=== PATIENT | female | born 1950 | race Caucasian/White ===

== ENCOUNTER 2022-12-17 10:03 | Outpatient (OUT) | payer MEDICARE, SELFPAY ==
[2022-12-17 10:53] LABS: Alanine Aminotransferase 26 U/L (14-59); Albumin Globulin Ratio 0.9; Albumin Level 3.8 g/dL (3.4-5.0); Alkaline Phosphatase 77 U/L (46-116); Anion Gap 11.4; Aspartate Amino Transferase 19 U/L (15-37); BUN Creatinine Ratio 23.2; Bilirubin Total 0.6 mg/dL (0.2-1.0); Calcium 9.3 mg/dL (8.5-10.1); Carbon Dioxide 28.7 mmol/L (21.0-32.0); Chloride 101 mmol/L (98-107); Chol HDL Ratio 3.2; Cholesterol 185 mg/dL (<=200); Estimated GFR (African America >60 (>=60); Estimated GFR (Non-African Ame >60 (>=60); Glucose 106 mg/dL (74-106); HDL Cholesterol 58 mg/dL (40-60); Potassium 4.1 mmol/L (3.5-5.1); Sodium 137 mmol/L (136-145); Total Protein 7.8 g/dL (6.4-8.2); Triglycerides 164 mg/dL (<=150); VLDL CHOLESTEROL 32.8 mg/dL
== END 2022-12-17 10:04 ==
PROVIDERS: PCP Family Medicine; Visit Provider Family Medicine
DX: I10 Essential (primary) hypertension (principal); Z13.1 Encounter for screening for diabetes mellitus; E78.2 Mixed hyperlipidemia
CPT/HCPCS: 36415; 80053; 80061

== ENCOUNTER 2023-04-25 12:59 | Outpatient (RCR) | payer MEDICARE, SELFPAY | END 2023-05-27 15:00 | disposition home or self-care (01) | LOC: PT 12:59 | PROVIDERS: PCP Family Medicine | DX: M54.9 Dorsalgia, unspecified (principal); M54.2 Cervicalgia; G89.29 Other chronic pain; R29.3 Abnormal posture | CPT/HCPCS: 97110; 97112; 97140; 97162 ==

== ENCOUNTER 2023-05-24 18:47 | Emergency (ER) | payer MEDICARE, SELFPAY ==
[2023-05-24] VITALS (12 sets, daily range): BP systolic 141–170; BP diastolic 80–90; PULSE 64–77; RESP 15–23; TEMP 36.7; O2SAT 97–100; BMI 25.1
--- NOTE | 2023-05-24 19:11 | PC.NURSE ---
Here for hypertension
--- NOTE | 2023-05-24 19:19 | ED_ITS ---
HPI - General Adult General Chief complaint: Recheck/Abnormal Lab/Rx Stated complaint: Blood Pressure High Time Seen by Provider: 05/24/23 19:14 Source: patient Mode of arrival: walk-in Limitations: no limitations History of Present Illness HPI narrative: past history of left renal artery stenosis and HTN. States her BP has spiked in the past and she states it spiked again tonight. States she can tell when it spi kes because her face becomes flushed. No headache, dizziness, chest pain or dyspnea. No abdominal pain. States BP spike to 184 systolic at home. On arrival to the ER it is 170/90 Onset (ago): hour(s) Related Data Allergies Allergy/AdvReac Type Severity Reaction Status Date / Time No Known Drug Allergies Allergy Verified 05/24/23 19:06 Review of Systems ROS Status of ROS 10 or more systems reviewed and unremarkable except as noted in history and below Exam Constitutional Vital Signs, click to edit/add: Last Vital Signs Temp 98.1 F 05/24/23 19:06 Pulse 64 05/24/23 20:15 Resp 23 05/24/23 20:15 BP 141/82 05/24/23 20:15 Pulse Ox 97 05/24/23 19:20 O2 Del Method Room Air 05/24/23 19:11 Common normals: no apparent distress, average body habitus, oriented x3, no limitations, healthy appearing and alert [facility] Common normals: normocephalic and head/scalp atraumatic Eye Common normals: PERRL, EOMs intact bilaterally and conjunctivae normal Respiratory Common normals: normal respiratory effort, no retractions, no use of accessory muscles and clear to auscultation bilaterally Cardio Common normals: regular rate, regular rhythm, S1 normal heart sound, S2 normal heart sound and no murmurs GI Common normals: Normal to inspection, nondistended, normoactive bowel sounds present, soft to palpation and non-tender Extremity Common normals: normal to inspection and full ROM Neuro Common normals: oriented x3, CN's II-XII intact bilaterally, moves all extremities and no focal motor deficits Psych Appearance: grossly normal Course Vital Signs Vital signs: Vital Signs Temperature 98.1 F 05/24/23 19:06 Pulse Rate 77 05/24/23 19:06 Respiratory Rate 18 05/24/23 19:06 Blood Pressure 170/90 H 05/24/23 19:06 Pulse Oximetry 100 05/24/23 19:06 Oxygen Delivery Method Room Air 05/24/23 19:06 Temperature 98.1 F 05/24/23 19:06 Pulse Rate 64 05/24/23 20:15 Respiratory Rate 23 05/24/23 20:15 Blood Pressure 141/82 05/24/23 20:15 Pulse Oximetry 97 05/24/23 19:20 Oxygen Delivery Method Room Air 05/24/23 19:11 Medical Decision Making MDM Narrative Medical decision making narrative: patient presents with complaint of a spike of her BP at home to a high of 184 systolic. Arrives to the Er and BP has decreased to 170s workup in the department unremarkable and her BP returned to normal without intervention. She is discharged home asymptomatic to follow up with her doctor Lab Data Labs: Lab Results 05/24/23 Range/Units 19:30 WBC 6.2 (4.0-11.0) 10^3/uL RBC 3.75 L (4.20-5.40) 10^6/uL Hgb 11.3 L (12.0-16.0) g/dL Hct 34.0 L (36.0-48.0) % MCV 90.7 (81.0-99.0) fL MCH 30.1 (26.7-34.0) pg MCHC 33.2 (29.9-35.2) g/dL RDW 12.9 (11.0-15.0) % Plt Count 281 (150-450) 10^3/uL MPV 10.5 (9.5-13.5) fL Neut % (Auto) 61.7 (43.0-75.0) % Lymph % (Auto) 23.1 (20.5-60.0) % [place] % (Auto) 8.0 (1.7-12.0) % Eos % (Auto) 6.4 (0.9-7.0) % Baso % (Auto) 0.6 (0.2-2.0) % Neut # (Auto) 3.8 (1.4-6.5) 10^3/uL Lymph # (Auto) 1.4 (1.2-3.8) 10^3/uL [place] # (Auto) 0.5 (0.3-0.8) 10^3/uL Eos # (Auto) 0.4 (0.0-0.7) 10^3/uL Baso # (Auto) 0.0 (0.0-0.1) 10^3/uL Abs Immat Gran (auto) 0.01 (0.00-0.03) 10^3/uL Imm/Tot Granulo (auto) 0.2 (0.0-0.5) % Sodium 133 L (136-145) mmol/L Potassium 3.9 (3.5-5.1) mmol/L Chloride 97 L (98-107) mmol/L Carbon Dioxide 28.1 (21.0-32.0) mmol/L Anion Gap 11.8 BUN 21.0 H (7.0-18.0) mg/dL Creatinine 0.73 (0.55-1.02) mg/dL Est GFR ( Amer) >60 (>=60) Est GFR (Non-Af Amer) >60 (>=60) BUN/Creatinine Ratio 28.8 Glucose 98 (74-106) mg/dL Calcium 9.4 (8.5-10.1) mg/dL Troponin I High Sens 4.3 (4.0-51.3) pg/mL NT-Pro-B Natriuret Pep 75.0 (<=900.0) pg/mL Discharge Plan Discharge Chief Complaint: Recheck/Abnormal Lab/Rx Clinical Impression: Hypertension Instructions: Hypertension (ED) Stand Alone Forms: Portal Instructions Referrals: SHAINA CASTAÑEDA [Primary Care Provider] - 1 week
--- NOTE | 2023-05-24 19:21 | XR_ITS ---
[place] [id number] Patient Name: SUJATHA HA MRN: [id number] date: 1950 Sex: F Assigned Patient Location: ER Current Patient Location: ER Accession/Order Number: [id number] Exam Date: 05/24/2023 19:28 Report Date: 05/24/2023 20:10 At the request of: RD COLLINS Procedure: XR chest 1V EXAMINATION: XR chest 1V HISTORY: Hypertension COMPARISON: Chest x-ray 03/16/2021 TECHNIQUE: Portable chest FINDINGS: The lung parenchyma is free of consolidation or infiltrate. No pneumothorax or pleural effusion. The cardiac, mediastinal and hilar contours are normal. The visualized osseous structures exhibit no gross abnormality. XR/XR chest 1V IMPRESSION: No acute cardiopulmonary abnormality. Electronically authenticated by: MIREILLE THRONTON Date: 05/24/2023 20:10
--- NOTE | 2023-05-24 19:23 | ECG_ITS ---
[facility] Test Date: 2023-05-24 Pat Name: SUJATHA HA Department: Room: - Gender: Female [employer]: : 1950 Requested By: SHAINA CASTAÑEDA Order Number: [id number] Reading MD: SOCORRO PEARCE Measurements Intervals [place] Rate: 72 P: 44 WV: 230 QRS: 33 QRSD: 86 T: 35 QT: 398 QTc: 423 Interpretive Statements 1100 Sinus rhythm 2231 First degree AV block 9150 abnormal ECG No previous ECG available for comparison Electronically Signed On 05-25-2023 19:35:06 EST by SOCORRO PEARCE
[2023-05-24 19:51] LABS: Basophils Percent Auto 0.6 % (0.2-2.0); Eosinophils Absolute Auto 0.4 10^3/uL (0.0-0.7); Eosinophils Percent Auto 6.4 % (0.9-7.0); Hemoglobin 11.3 g/dL (12.0-16.0); Immature Granulocytes Abs Auto 0.01 10^3/uL (0.00-0.03); Immature Granulocytes Pct Auto 0.2 % (0.0-0.5); Lymphocytes Absolute Auto 1.4 10^3/uL (1.2-3.8); Lymphocytes Percent Auto 23.1 % (20.5-60.0); Mean Corpuscular HGB Conc 33.2 g/dL (29.9-35.2); Mean Corpuscular Hemoglobin 30.1 pg (26.7-34.0); Mean Corpuscular Volume 90.7 fL (81.0-99.0); Mean Platelet Volume 10.5 fL (9.5-13.5); Monocytes Absolute Auto 0.5 10^3/uL (0.3-0.8); Neutrophils Absolute Auto 3.8 10^3/uL (1.4-6.5); Neutrophils Percent Auto 61.7 % (43.0-75.0); Platelet Count 281 10^3/uL (150-450); Red Blood Count 3.75 10^6/uL (4.20-5.40); Red Cell Distribution Width 12.9 % (11.0-15.0); White Blood Count 6.2 10^3/uL (4.0-11.0)
[2023-05-24 20:12] LABS: Anion Gap 11.8; BUN Creatinine Ratio 28.8; Calcium 9.4 mg/dL (8.5-10.1); Carbon Dioxide 28.1 mmol/L (21.0-32.0); Chloride 97 mmol/L (98-107); Estimated GFR (African America >60 (>=60); Estimated GFR (Non-African Ame >60 (>=60); Glucose 98 mg/dL (74-106); Potassium 3.9 mmol/L (3.5-5.1); Sodium 133 mmol/L (136-145); Troponin I High Sensitivity 4.3 pg/mL (4.0-51.3)
== END 2023-05-24 21:00 | disposition home or self-care (01) ==
PROVIDERS: Emergency Provider Internal Medicine; PCP Family Medicine
DX: I10 Essential (primary) hypertension (principal); I70.1 Atherosclerosis of renal artery
CPT/HCPCS: 36415; 71045; 80048; 83880; 84484; 85025; 93005; 99285

== ENCOUNTER 2023-11-29 01:26 | Emergency (ER) | payer MEDICARE, SELFPAY ==
[2023-11-29 01:33] VITALS: BP 141/76; PULSE 75; TEMP 36.7; O2SAT 96; BMI 25.4
--- OUTSIDE RECORDS SUMMARY | 2023-11-29 01:38 | XMS_ITS | CCD ---
Author Organization [facility] Care Team Providers Care Hide Buyer Name Role Phone Casper Juan W Unavailable Unavailable Rice, Juan W Unavailable Unavailable Rice Juan W Unavailable Unavailable HUDSON CASTAÑEDA Unavailable Unavailable Hudson Castañeda Primary Care Provider Sg Randall Attending Provider Kamari Virk Attending Provider [phone] You, Gonsalo Unavailable Jordan Gutierrez Unavailable MD Hudson Castañeda Primary Care Provider MD Kamari Virk Attending Provider Unavailabl MD José Luis Brown Referring Provider [phone] MD Jordan Gutierrez Attending Provider MD Hudson Castañeda Primary Care Provider MD Sg Randall Attending Provider TONIA, DR PHILIP Admitting Unavailable TONIA, DR PHILIP Attending Unavailable MADDY, DR MERRITT Primary Care Unavailable TONIA, DR PHILIP Consulting Unavailable YOU, GONSALO Admitting Unavailable YOU, GONSALO Attending Unavailable HEMEABELARDO, DR MERRITT Primary Care Unavailable YOU, GONSALO Consulting Unavailable MADDY, DR MERRITT Admitting Unavailable MADDY, DR MERRITT Attending Unavailable MADDY, DR MERRITT Primary Care Unavailable MADDY, DR MERRITT Consulting Unavailable MADDY, DR MERRITT Admitting Unavailable MADDY, DR MERRITT Attending Unavailable MADDY, DR MERRITT Primary Care Unavailable MADDY, DR MERRITT Consulting Unavailable MD Hudson Castañeda Primary Care Provider [phone] MD Sg Randall Attending Provider [phone] CHANTEL Stafford Attending Provider MD José Luis Brennan Attending Provider [phone] MD Hudson Castañeda Primary Care Provider MD Tamera Randall Attending Provider MD Hudson Castañeda Primary Care Provider MD Tamera Randall Attending Provider [phone] Hudson Castañeda Primary Care Unavailable Tonia, Tamera Admitting Unavailable Tonia, Tamera Attending Unavailable Tonia, Tamera Admitting Unavailable Randall, Tamera Attending Unavailable Hemeyer, Edward J Primary Care Unavailable ObTorie segal Admitting Unavailable ObTorie segal Attending Unavailable Hemeyer, Edward Mónica Primary Care Unavailable José Luis Brennan Admitting Unavailable José Luis Brennan Attending Unavailable Hemeyer, Edward J Primary Care Unavailable TAM PAHEL A Attending Unavailable HEMEYER, EDWARD J Referring Unavailable HEMEYER, EDWARD J Primary Care Unavailable OLIVE DODSON Attending Unavailable PA, PRICILLA A Referring Unavailable HEMEYER, EDWARD J Primary Care Unavailable PA, PRICILLA A Attending Unavailable THIERNO, PRICILLA A Referring Unavailable HEMEYER, EDWARD J Primary Care Unavailable Unavailable Unavailable Unavailable Allergies Allergy Classification Reported Allergen(s) Allergy Type Date of Onset Reaction(s) Facility (1 source) No Known Medication Allergies; Translations: [No Known Medication Allergies] Propensity to adverse reactions (disorder) [facility] Repository (5 sources) Ibuprofen Drug Allergy due to kidneys [place] [employer] Other (5 sources) NSAIDs Propensity to adverse reactions due to kidneys [place] [employer] Other (1 source) Ibuprofen Drug Allergy 3 [facility] Repository (1 source) NSAIDs Drug allergy (disorder) 3 [facility] Repository (2 sources) Pollen; Translations: [POLLEN EXTRACTS] Propensity to adverse reactions to drug (disorder) 8 [facility] Repository Medications Current Medications Medication Drug Class(es) Dates Sig (Normalized) Sig (Original) amLODIPine 5 mg oral tablet (7 sources) Dihydropyridine Calcium Channel Ariela Start: 11-13-2023 take 10 mg by mouth once daily Amlodipine Active 10 MG PO Daily November 13, 2023 11:10am Start: 11-13-2023 End: 11-13-2023 take 5 mg by mouth once daily Amlodipine Discontinued 5 MG PO Daily November 13, 2023 12:00am November 13, 2023 11:10am Start: 02-14-2021 take 1 tablet by jenaro th every twenty-four hours amLODIPine Besylate 5 MG 1 tablet Orally Once a day for 90 day(s) Feb, Active Start: 02-14-2021 take 0.5 tablet by m outh once daily as needed amLODIPine Besylate 5 MG 1/2 tablet Orally Once a day ONLY PRN for 90 day(s) Feb, Not-Taking atorvastatin 20 mg oral tablet (13 sources) HMG-CoA Reductase Inhibitor Start: 01-31-2022 take 20 mg by mouth once daily Atorvastatin Active 20 MG PO Daily January 31, 2022 12:00am cetirizine hydrochloride 10 mg oral tablet (1 source) Histamine-1 Receptor Antagonist Start: 11-13-2023 take 1 tablet by mouth once daily Cetirizine (Zyrtec) 10 mg tablet Active 10 MG PO Daily November 13, 2023 12:00am cholecalciferol 0.05 mg oral capsule (8 sources) Vitamin D Start: 01-31-2022 take 1 capsule by mouth once daily Cholecalciferol (Vitamin D3) (Vitamin D3) 50 mcg (2,000 unit) Capsule Active 50 MCG PO Daily January 31, 2022 12:00am cyclobenzaprine hydrochloride 5 mg oral tablet (13 sources) Muscle Relaxant Start: 01-31-2022 take 5 mg by mouth three times daily Cyclobenzaprine Active 5 MG PO Three times daily January 31, 2022 12:00am esomeprazole 20 mg delayed release oral capsule (13 sources) Proton Pump Inhibitor Start: 01-31-2022 take 1 capsule by mouth once daily Esomeprazole Magnesium (Nexium) 20 mg Capsule,Delayed Release(Dr/Ec) Active 20 MG PO Daily January 31, 2022 12:00am fluticasone (14 sources) Corticosteroid Start: 11-13-2023 Fluticasone Propionate Active 2 INH INHALATION Twice daily November 13, 2023 12:00am Start: 01-31-2022 Fluticasone Pr opionate Active 1 INH INHALATION Daily January 31, 2022 12:00am take 2 spray(s) nasa l route once daily Fluticasone Propionate 2 SPRAYS Nasally daily Active gabapentin 100 mg oral capsule (14 sources) Anti-epileptic Agent Start: 01-31-2022 End: 11-13-2023 take 100 mg by mouth three times daily Gabapentin Active 100 MG PO Three times daily November 13, 2023 11:02am lactobacillus rhamnosus gg [id number] unt oral capsule (1 source) Start: 11-13-2023 take 1 capsule by mouth once daily Lactobacillus Rhamnosus Gg ([facility]) 10 billion cell capsule Active 1 CAP PO Daily November 13, 2023 12:00am losartan potassium 100 mg oral tablet (20 sources) Angiotensin 2 Receptor Ariela Start: 01-31-2022 End: 11-13-2023 take 100 mg by mouth once daily Losartan Active 100 MG PO Daily January 31, 2022 12:00am lysine 1000 mg oral tablet (13 sources) Start: 01-31-2022 take 1000 mg by mouth once daily Lysine Active 1000 MG PO Daily January 31, 2022 12:00am Magnesium (13 sources) Start: 01-31-2022 take 500 mg by mouth once daily Magnesium Active 500 MG PO Daily January 31, 2022 12:00am take 1 tablet by mouth once cortez y Magnesium 500 MG 1 tablet with a meal Orally Once a day Active melatonin 3 mg oral tablet (1 source) Start: 11-13-2023 take 3 mg by mouth once daily at bedtime Melatonin Active 3 MG PO Daily at bedtime November 13, 2023 12:00am Melatonin + L-Theanine 3 mg (5 sources) take 1 tablet by mouth once daily Melatonin + L-Theanine 3 mg 1 tab(s) Orally daily Active Multi For Her 50+ - (5 sources) Multi For Her 50 + - Orally Active Multivitamin preparation (8 sources) Start: 01-31-2022 take 1 tablet by mouth once daily Multivitamin Active 1 TAB PO Daily January 31, 2022 12:00am potassium 99 mg extended release oral tablet (1 source) Start: 11-13-2023 Potassium Acti ve 99 MG PO 1 to 2 times per day November 13, 2023 12:00am Turmeric extract (1 source) Start: 11-13-2023 take 400 mg by mouth once daily Turmeric Active 400 MG PO daily November 13, 2023 12:00am Vitamin D 2000 UNIT (5 sources) take 2 capsules by mouth once daily Vitamin D 2000 UNIT 2 capsules Orally Once a day Active zolpidem tartrate 10 mg oral tablet (14 sources) gamma-Aminobut yric Acid-ergic Agonist Start: 01-31-2022 End: 11-13-2023 take 10 mg by mouth at bedtime Zolpidem Active 10 MG PO Bedtime November 13, 2023 11:03am Completed/Discontinued Medications Medication Drug Class(es) Dates Sig (Normalized) Sig (Original) Calcium Carbonate (3 sources) take 1 tablet by mouth once daily Caltrate 600 1 tablet Orally ONCE A DAY Not-Taking fexofenadine hydrochloride 180 mg oral tablet (13 sources) Histamine-1 Receptor Antagonist Start: 01-31-2022 End: 11-13-2023 take 1 tablet by mouth once daily Fexofenadine (Sasha) 180 mg Tablet Discontinued 180 MG PO Daily January 31, 2022 12:00am November 13, 2023 11:02am krill oil (8 sources) Start: 01-31-2022 End: 11-13-2023 Agwuq-Lf-3-Dha-Epa -Phospho-Ast (Krill Oil) 1,230-008-79-80 mg Capsule Discontinued 1 CAP PO Daily January 31, 2022 12:00am November 13, 2023 11:03am Start: 01-31-2022 Wiwok-Xn-1-Dha -Cnr-Upaudke-Yva (Krill Oil) 1,435-372-67-80 mg Capsule Active 1 CAP PO Daily January 31, 2022 12:00am Triamcinolone (10 sources) Corticosteroid Start: 05-24-2018 KENALOG - 10 m g May, 80 mg Start: 02-19-2018 KENALOG - 10 m g Feb, 80 mg Problems Active Problems Problem Classification Problem Date Documented Da te Episodic/Chronic Abdominal pain (2 sources) Epigastric pain; Translations: [Epigastric pain] Onset: 11-03-2023 Episodic Deficiency and other anemia (5 sources) Anemia of renal disease; Translations: [Anemia in chronic kidney disease] Chronic Deficiency and other anemia (3 sources) Anemia in chronic kidney disease; Translations: [Anemia in chronic kidney disease] Onset: 11-29-2021 Resolved: 11-29-2021 Chronic Deficiency and other anemia (1 source) Anemia; Translations: [Anemia, unspecified] 11-13-2023 Episodic Disorders of lipid metabolism (15 sources) Dyslipidemia; Translations: [Hyperlipidemia, unspecified] Onset: 11-21-2021 Resolved: 11-29-2021 Chronic Essential hypertension (4 sources) Essential (primary) hypertension; Translations: [ESSENTIAL PRIMARY HYPERTENSION] Onset: 02-11-2022 Chronic Fluid and electrolyte disorders (6 sources) Hypo-osmolality and hyponatremia; Translations: [Chronic hyponatremia] Onset: 11-27-2021 Resolved: 11-29-2021 Episodic Hypertension with complications and secondary hypertension (11 sources) Renovascular hypertension; Translations: [Renovascular hypertension] Onset: 11-27-2021 Resolved: 11-29-2021 Chronic Nutritional deficiencies (15 sources) Vitamin D deficiency; Translations: [Vitamin D deficiency, unspecified] Onset: 11-27-2021 Resolved: 11-29-2021 Chronic Other aftercare (1 source) Other terminal supervisor (current) drug therapy; Translations: [OTH LONG-TERM CURRENT DRUG THERAPY] Onset: 07-17-2022 Episodic Other circulatory disease (2 sources) Stricture of artery; 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] Onset: 11-03-2023 Chronic Peripheral and visceral atherosclerosis (12 sources) Renal artery stenosis; Translations: [Atherosclerosis of renal artery] Onset: 02-09-2018 Resolved: 11-29-2021 Chronic Rheumatoid arthritis and related disease (11 sources) Rheumatoid arthritis; Translations: [Rheumatoid arthritis, unspecified] Onset: 11-27-2021 Resolved: 11-29-2021 Chronic Spondylosis; intervertebral disc disorders; other back problems (5 sources) Lumbar spondylosis; Translations: [Spondylosis without myelopathy or radiculopathy, lumbar region] Chronic Spondylosis; intervertebral disc disorders; other back problems (10 sources) Acute back pain with sciatica; Translations: [Lumbago with sciatica, right side] Episodic Unclassified (3 sources) CONTACT W/AND (SUSP) EXPOS COVID-19; Translations: [CONTACT W/AND (SUSP) EXPOS COVID-19] Onset: 02-28-2022 Unclassified (1 source) Rheumatoid arthritis with rheumatoid factor of multiple sites without organ or systems involvement; Translations: [Rheumatoid arthritis with rheumatoid factor of multiple sites without organ or systems involvement] Onset: 04-29-2023 Unclassified (1 source) Encounter for screening mammogram for malignant neoplasm of breast; Translations: [Encounter for screening mammogram for malignant neoplasm of breast] Onset: 01-08-2023 Unclassified (1 source) Pain in left knee; Translations: [Pain in left knee] Onset: 10-29-2022 Past or Other Problems Problem Classification Problem Date Documented Da te Episodic/Chronic Other lower respiratory disease (1 source) Other specified respiratory disorders; Translations: [OTHER SPEC RESPIRATORY DISORDERS] Onset: 02-28-2022 Episodic Other screening for suspected conditions (not mental disorders or infectious disease) (2 sources) Encounter for screening for malignant neoplasm of colon; Translations: [Encounter for screening for diabetes mellitus] Onset: 01-08-2022 Resolved: 01-08-2022 Episodic Other upper respiratory disease (1 source) Nasal congestion; Translations: [NASAL CONGESTION] Onset: 02-28-2022 Episodic Unclassified (1 source) CONTACT W/AND (SUSP) EXPOS COVID-19; Translations: [CONTACT W/AND (SUSP) EXPOS COVID-19] Onset: 02-26-2022 Results Test Name Value Interpretation Reference Range Facility Alanine aminotransferase [En zymatic activity/volume] in Serum or PlasmaOrdered By: Tamera Randall on 10-27-2023 ALT [Catalytic activity/Vol] 16 U/L 7-52 [facility] Albumin [Mass/volume] in Ser um or Plasma by Bromocresol green (BCG) dye binding methoOrdered By: Tamera Randall on 10-27-2023 Albumin BCG dye [Mass/Vol] 4.5 g/dL 3.5-5.7 [facility] Alkaline phosphatase [Enzyma tic activity/volume] in Serum or PlasmaOrdered By: Tamera Randall on 10-27-2023 ALP [Catalytic activity/Vol] 62 U/L 34-104 [facility] Aspartate aminotransferase [ Enzymatic activity/volume] in Serum or PlasmaOrdered By: Tamera Randall on 10-27-2023 AST [Catalytic activity/Vol] 20 U/L 13-39 [facility] Basophils Auto (Bld) [#/Vol] Ordered By: Tamera Randall on 10-27-2023 Basophils (Bld) [#/Vol] 0.0 10*3/uL 0.0-0.2 [facility] Basophils/100 WBC Auto (Bld) Ordered By: Tamera Randall on 10-27-2023 Basophils/100 WBC (Bld) 0.7 % . [facility] Bilirubin.total [Mass/volume ] in Serum or PlasmaOrdered By: Tamera Randall on 10-27-2023 Bilirubin [Mass/Vol] 0.6 mg/dL 0.3-1.0 [facility] Calcium [Mass/volume] in Ser um or PlasmaOrdered By: Tamera Randall on 10-27-2023 Calcium [Mass/Vol] 9.5 mg/dL 8.6-10.3 [facility] Carbon dioxide, total [Moles /volume] in Serum or PlasmaOrdered By: Tamera Randall on 10-27-2023 CO2 [Moles/Vol] 25.7 mmol/L 21.0-31.0 [facility] Chloride [Moles/volume] in S jl or PlasmaOrdered By: Tamera Randall on 10-27-2023 Chloride [Moles/Vol] 98 mmol/L 98-107 [facility] Complete Blood Count Auto Di ffon 10-27-2023 Basophils (Bld) [#/Vol] 0.0 10*3/uL Normal 0.0-0.2 [facility] Comment on above: Order Comment: Reaso n for Exam Renovascular hypertension;Renal artery stenosis;Dyslipidemia Performed By: #### E SR, RENAL, [id number], MG, [id number], URIC, CMP, FE and TIBC, CBC, JAS #### [facility] [address] Basophils/100 WBC (Bld) 0.7 % Normal . [facility] Comment on above: Order Comment: Reaso n for Exam Renovascular hypertension;Renal artery stenosis;Dyslipidemia Performed By: #### E SR, RENAL, [id number], MG, [id number], URIC, CMP, FE and TIBC, CBC, JAS #### [facility] [address] Eosinophils (Bld) [#/Vol] 0.2 10*3/uL Normal 0.0-0.45 [facility] Comment on above: Order Comment: Reaso n for Exam Renovascular hypertension;Renal artery stenosis;Dyslipidemia Performed By: #### E SR, RENAL, [id number], MG, [id number], URIC, CMP, FE and TIBC, CBC, JAS #### [address] Eosinophils/100 WBC (Bld) 2.7 % Normal . [facility] Comment on above: Order Comment: Reaso n for Exam Renovascular hypertension;Renal artery stenosis;Dyslipidemia Performed By: #### E SR, RENAL, [id number], MG, [id number], URIC, CMP, FE and TIBC, CBC, JAS #### [address] Erythrocyte distribution width (RBC) [Ratio] 13.4 % Normal 11.9-15.3 [facility] Comment on above: Order Comment: Reaso n for Exam Renovascular hypertension;Renal artery stenosis;Dyslipidemia Performed By: #### E SR, RENAL, [id number], MG, [id number], URIC, CMP, FE and TIBC, CBC, JAS #### [address] Hematocrit (Bld) [Volume fraction] 35.5 % Normal 34.0-46.4 [facility] Comment on above: Order Comment: Reaso n for Exam Renovascular hypertension;Renal artery stenosis;Dyslipidemia Performed By: #### E SR, RENAL, [id number], MG, [id number], URIC, CMP, FE and TIBC, CBC, JAS #### [address] Hemoglobin (Bld) [Mass/Vol] 11.9 g/dL Normal 11.8-15.4 [facility] Comment on above: Order Comment: Reaso n for Exam Renovascular hypertension;Renal artery stenosis;Dyslipidemia Performed By: #### E SR, RENAL, [id number], MG, [id number], URIC, CMP, FE and TIBC, CBC, JAS #### [address] Lymphocytes (Bld) [#/Vol] 1.3 10*3/uL Normal 1.00-4.8 [facility] Comment on above: Order Comment: Reaso n for Exam Renovascular hypertension;Renal artery stenosis;Dyslipidemia Performed By: #### E SR, RENAL, [id number], MG, [id number], URIC, CMP, FE and TIBC, CBC, JAS #### [address] Lymphocytes/100 WBC (Bld) 20.9 % Normal . [facility] Comment on above: Order Comment: Reaso n for Exam Renovascular hypertension;Renal artery stenosis;Dyslipidemia Performed By: #### E SR, RENAL, [id number], MG, [id number], URIC, CMP, FE and TIBC, CBC, JAS #### [address] MCH (RBC) [Entitic mass] 30.4 pg Normal 24.7-34.3 [facility] Comment on above: Order Comment: Reaso n for Exam Renovascular hypertension;Renal artery stenosis;Dyslipidemia Performed By: #### E SR, RENAL, [id number], MG, [id number], URIC, CMP, FE and TIBC, CBC, JAS #### [address] MCV (RBC) [Entitic vol] 90.4 fL Normal 80-100 [facility] Comment on above: Order Comment: Reaso n for Exam Renovascular hypertension;Renal artery stenosis;Dyslipidemia Performed By: #### E SR, RENAL, [id number], MG, [id number], URIC, CMP, FE and TIBC, CBC, JAS #### [address] Mean Corpuscular HGB Conc 33.6 g/dL Normal 32.0-35.0 [facility] Comment on above: Order Comment: Reaso n for Exam Renovascular hypertension;Renal artery stenosis;Dyslipidemia Performed By: #### E SR, RENAL, [id number], MG, [id number], URIC, CMP, FE and TIBC, CBC, JAS #### [facility] [address] Monocytes (Bld) [#/Vol] 0.5 10*3/uL Normal 0.0-0.8 [facility] Comment on above: Order Comment: Reaso n for Exam Renovascular hypertension;Renal artery stenosis;Dyslipidemia Performed By: #### E SR, RENAL, [id number], MG, [id number], URIC, CMP, FE and TIBC, CBC, JAS #### [facility] [address] Monocytes/100 WBC (Bld) 7.5 % Normal . [facility] Comment on above: Order Comment: Reaso n for Exam Renovascular hypertension;Renal artery stenosis;Dyslipidemia Performed By: #### E SR, RENAL, [id number], MG, [id number], URIC, CMP, FE and TIBC, CBC, JAS #### [facility] [address] Neutrophils (Bld) [#/Vol] 4.1 10*3/uL Normal 1.8-7.7 [facility] Comment on above: Order Comment: Reaso n for Exam Renovascular hypertension;Renal artery stenosis;Dyslipidemia Performed By: #### E SR, RENAL, [id number], MG, [id number], URIC, CMP, FE and TIBC, CBC, JAS #### [facility] [address] [place] [address] [place] Neutrophils/100 WBC (Bld) 68.2 % Normal . [facility] Comment on above: Order Comment: Reaso n for Exam Renovascular hypertension;Renal artery stenosis;Dyslipidemia Performed By: #### E SR, RENAL, [id number], MG, [id number], URIC, CMP, FE and TIBC, CBC, JAS #### [facility] [address] NRBC% 0.1 /100{WBC} Normal 0-0.5 [facility] Comment on above: Order Comment: Reaso n for Exam Renovascular hypertension;Renal artery stenosis;Dyslipidemia Performed By: #### E SR, RENAL, [id number], MG, [id number], URIC, CMP, FE and TIBC, CBC, JAS #### [facility] [address] Platelet mean volume (Bld) [Entitic vol] 9.3 fL Normal 6.3-10.7 [facility] Comment on above: Order Comment: Reaso n for Exam Renovascular hypertension;Renal artery stenosis;Dyslipidemia Performed By: #### E SR, RENAL, [id number], MG, [id number], URIC, CMP, FE and TIBC, CBC, JAS #### [facility] [address] Platelets (Bld) [#/Vol] 275 10*3/uL Normal 150-450 [facility] Comment on above: Order Comment: Reaso n for Exam Renovascular hypertension;Renal artery stenosis;Dyslipidemia Performed By: #### E SR, RENAL, [id number], MG, [id number], URIC, CMP, FE and TIBC, CBC, JAS #### [facility] [address] RBC (Bld) [#/Vol] 3.93 10*6/uL Normal 3.60-5.00 [facility] Comment on above: Order Comment: Reaso n for Exam Renovascular hypertension;Renal artery stenosis;Dyslipidemia Performed By: #### E SR, RENAL, [id number], MG, [id number], URIC, CMP, FE and TIBC, CBC, JAS #### [facility] [address] WBC (Bld) [#/Vol] 6.1 10*3/uL Normal 3.8-11.6 [facility] Comment on above: Order Comment: Reaso n for Exam Renovascular hypertension;Renal artery stenosis;Dyslipidemia Performed By: #### E SR, RENAL, [id number], MG, [id number], URIC, CMP, FE and TIBC, CBC, JAS #### [facility] [address] Comprehensive Metabolic Pane canelo 10-27-2023 Albumin [Mass/Vol] 4.5 g/dL Normal 3.5-5.7 [facility] Comment on above: Order Comment: Reaso n for Exam Renovascular hypertension;Renal artery stenosis;Dyslipidemia Performed By: #### E SR, RENAL, [id number], MG, [id number], URIC, CMP, FE and TIBC, CBC, JAS #### [facility] [address] [place] [id number] [facility] Albumin/Globulin [Mass ratio] 1.7 {ratio} Normal [facility] Comment on above: Order Comment: Reaso n for Exam Renovascular hypertension;Renal artery stenosis;Dyslipidemia Performed By: #### E SR, RENAL, [id number], MG, [id number], URIC, CMP, FE and TIBC, CBC, JAS #### [facility] [address] ALP [Catalytic activity/Vol] 62 U/L Normal 34-104 [facility] Comment on above: Order Comment: Reaso n for Exam Renovascular hypertension;Renal artery stenosis;Dyslipidemia Performed By: #### E SR, RENAL, [id number], MG, [id number], URIC, CMP, FE and TIBC, CBC, JAS #### [facility] [address] ALT [Catalytic activity/Vol] 16 U/L Normal 7-52 [facility] Comment on above: Order Comment: Reaso n for Exam Renovascular hypertension;Renal artery stenosis;Dyslipidemia Performed By: #### E SR, RENAL, [id number], MG, [id number], URIC, CMP, FE and TIBC, CBC, JAS #### [facility] [address] [place] [id number] [facility] Anion gap [Moles/Vol] 12.8 mmol/L Normal 6.0-15.0 [facility] Comment on above: Order Comment: Reaso n for Exam Renovascular hypertension;Renal artery stenosis;Dyslipidemia Performed By: #### E SR, RENAL, [id number], MG, [id number], URIC, CMP, FE and TIBC, CBC, JAS #### [facility] [address] AST [Catalytic activity/Vol] 20 U/L Normal 13-39 [facility] Group Comment on above: Order Comment: Reaso n for Exam Renovascular hypertension;Renal artery stenosis;Dyslipidemia Performed By: #### E SR, RENAL, [id number], MG, [id number], URIC, CMP, FE and TIBC, CBC, JAS #### [facility] [address] Bilirubin [Mass/Vol] 0.6 mg/dL Normal 0.3-1.0 [facility] Comment on above: Order Comment: Reaso n for Exam Renovascular hypertension;Renal artery stenosis;Dyslipidemia Performed By: #### E SR, RENAL, [id number], MG, [id number], URIC, CMP, FE and TIBC, CBC, JAS #### [facility] [address] Calcium [Mass/Vol] 9.5 mg/dL Normal 8.6-10.3 The [facility] Comment on above: Order Comment: Reaso n for Exam Renovascular hypertension;Renal artery stenosis;Dyslipidemia Performed By: #### E SR, RENAL, [id number], MG, [id number], URIC, CMP, FE and TIBC, CBC, JAS #### [facility] [address] Chloride [Moles/Vol] 98 mmol/L Normal 98-107 [facility] Comment on above: Order Comment: Reaso n for Exam Renovascular hypertension;Renal artery stenosis;Dyslipidemia Performed By: #### E SR, RENAL, [id number], MG, [id number], URIC, CMP, FE and TIBC, CBC, JAS #### [facility] [address] CO2 [Moles/Vol] 25.7 mmol/L Normal 21.0-31.0 The [facility] Comment on above: Order Comment: Reaso n for Exam Renovascular hypertension;Renal artery stenosis;Dyslipidemia Performed By: #### E SR, RENAL, [id number], MG, [id number], URIC, CMP, FE and TIBC, CBC, JAS #### [facility] [address] Creatinine [Mass/Vol] 0.69 mg/dL Normal 0.60-1.20 [facility] Comment on above: Order Comment: Reaso n for Exam Renovascular hypertension;Renal artery stenosis;Dyslipidemia Performed By: #### E SR, RENAL, [id number], MG, [id number], URIC, CMP, FE and TIBC, CBC, JAS #### [facility] [address] GFR/1.73 sq M.predicted MDRD (S/P/Bld) [Vol rate/Area] mL/min/{1.73_m2} Normal [facility] Comment on above: Order Comment: Reaso n for Exam Renovascular hypertension;Renal artery stenosis;Dyslipidemia Performed By: #### E SR, RENAL, [id number], MG, [id number], URIC, CMP, FE and TIBC, CBC, JAS #### [facility] [address] Globulin (S) [Mass/Vol] 2.6 g/dL Normal [facility] Comment on above: Order Comment: Reaso n for Exam Renovascular hypertension;Renal artery stenosis;Dyslipidemia Performed By: #### E SR, RENAL, [id number], MG, [id number], URIC, CMP, FE and TIBC, CBC, JAS #### [facility] [address] [place] [id number] [facility] Glucose [Mass/Vol] 96 mg/dL Normal 70-100 The [facility] Comment on above: Order Comment: Reaso n for Exam Renovascular hypertension;Renal artery stenosis;Dyslipidemia Result Comment: [facility] Glucose Reference Range is dependent on time and content of last meal. Glucose of more than 200 mg/dL in a nonstressed, ambulatory subject supports the diagnosis of Diabetes Mellitus. ADA recommended reference range Performed By: #### E SR, RENAL, [id number], MG, [id number], URIC, CMP, FE and TIBC, CBC, JAS #### [address] Potassium [Moles/Vol] 4.5 mmol/L Normal 3.5-5.1 [facility] Comment on above: Order Comment: Reaso n for Exam Renovascular hypertension;Renal artery stenosis;Dyslipidemia Performed By: #### E SR, RENAL, [id number], MG, [id number], URIC, CMP, FE and TIBC, CBC, JAS #### [address] Protein [Mass/Vol] 7.1 g/dL Normal 6.4-8.9 [facility] Comment on above: Order Comment: Reaso n for Exam Renovascular hypertension;Renal artery stenosis;Dyslipidemia Performed By: #### E SR, RENAL, [id number], MG, [id number], URIC, CMP, FE and TIBC, CBC, JAS #### [address] Sodium [Moles/Vol] 132 mmol/L Low 136-145 [facility] Comment on above: Order Comment: Reaso n for Exam Renovascular hypertension;Renal artery stenosis;Dyslipidemia Performed By: #### E SR, RENAL, [id number], MG, [id number], URIC, CMP, FE and TIBC, CBC, JAS #### [address] Urea nitrogen [Mass/Vol] 21 mg/dL Normal 7-25 [facility] Comment on above: Order Comment: Reaso n for Exam Renovascular hypertension;Renal artery stenosis;Dyslipidemia Performed By: #### E SR, RENAL, [id number], MG, [id number], URIC, CMP, FE and TIBC, CBC, JAS #### [facility] [address] Creatinine [Mass/volume] in Serum or PlasmaOrdered By: Tamera Randall on 10-27-2023 Creatinine [Mass/Vol] 0.69 mg/dL 0.60-1.20 [facility] Eosinophils Auto (Bld) [#/Vo l]Ordered By: Tamera Randall on 10-27-2023 Eosinophils (Bld) [#/Vol] 0.2 10*3/uL 0.0-0.45 [facility] Eosinophils/100 WBC Auto (Bl d)Ordered By: Tamera Suarezrow on 10-27-2023 Eosinophils/100 WBC (Bld) 2.7 % . [facility] Erythrocyte Sedimentation Ra eulalio 10-27-2023 ESR (Bld) [Velocity] 17 mm/h Normal 0-29 [facility] Comment on above: Order Comment: Reaso n for Exam Renovascular hypertension;Renal artery stenosis;Dyslipidemia Result Comment: PERF ORMED BY: [place] [id number] PATHOLOGIST STUDIO ARTIST ONEIL GAMA M.D. Performed By: #### E SR, RENAL, [id number], MG, [id number], URIC, CMP, FE and TIBC, CBC, JAS #### [facility] [address] Erythrocyte distribution wid th Auto (RBC) [Ratio]Ordered By: Tamera Suarezrow on 10-27-2023 Erythrocyte distribution width (RBC) [Ratio] 13.4 % 11.9-15.3 [facility] Erythrocyte sedimentation ra te by Photometric methodOrdered By: Tamera Randall on 10-27-2023 ESR Photometric method (Bld) [Velocity] 17 mm/hr 0-29 [facility] Ferritinon 10-27-2023 Ferritin [Mass/Vol] 44.3 ng/mL Normal 11.0-306.8 The [facility] Comment on above: Order Comment: Reaso n for Exam Renovascular hypertension;Renal artery stenosis;Dyslipidemia Performed By: #### C BC, CMP, ESR #### [facility] [address] Ferritin [Mass/volume] in Se rum or PlasmaOrdered By: Gonsalo Birchr on 10-27-2023 Ferritin [Mass/Vol] 44.3 ng/mL 11.0-306.8 [facility] Folate [Mass/volume] in Seru m or PlasmaOrdered By: Gonsalo Stevens on 10-27-2023 Folate [Mass/Vol] 36.0 ng/mL >5.9 [facility] Comment on above: Folate reference ran ge: >5.9 ng/mlThe WHO technical consultation on folate and vitamin [id number] has determined that folate concentrations lessthan 4 ng/ml are considered deficient. Globulin Calc (S) [Mass/Vol] Ordered By: Tamera Randall on 10-27-2023 Globulin (S) [Mass/Vol] 2.6 g/dL [facility] Glucose [Mass/volume] in Ser um or PlasmaOrdered By: Tamera Randall on 10-27-2023 Glucose [Mass/Vol] 96 mg/dL 70-100 [facility] Comment on above: ADA recommended refe rence rangeRandom Glucose Reference Range is dependent on time and content of last meal. Glucose of more than 200 mg/dL in a nonstressed, ambulatory subject supports the diagnosis of Diabetes Mellitus. Hematocrit Auto (Bld) [Volum e fraction]Ordered By: Tamera Randall on 10-27-2023 Hematocrit (Bld) [Volume fraction] 35.5 % 34.0-46.4 [facility] Hemoglobin [Mass/volume] in BloodOrdered By: Tamera Randall on 10-27-2023 Hemoglobin (Bld) [Mass/Vol] 11.9 g/dL 11.8-15.4 [facility] Iron [Mass/volume] in Serum or PlasmaOrdered By: Gonsalo Stevens on 10-27-2023 Iron [Mass/Vol] 93 ug/dL 50-212 [facility] Iron and TIBC Profileon 10-06 % Iron Saturation 25.0 % Normal 20-50 The [facility] Comment on above: Order Comment: Reaso n for Exam Renovascular hypertension;Renal artery stenosis;Dyslipidemia Performed By: #### C BC, CMP, ESR #### [address] Iron [Mass/Vol] 93 ug/dL Normal 50-212 [facility] Comment on above: Order Comment: Reaso n for Exam Renovascular hypertension;Renal artery stenosis;Dyslipidemia Performed By: #### C BC, CMP, ESR #### [facility] [address] [place] [address] [place] Total Iron Binding Capacity 372 ug/dL Normal 255-450 [facility] Comment on above: Order Comment: Reaso n for Exam Renovascular hypertension;Renal artery stenosis;Dyslipidemia Performed By: #### C BC, CMP, ESR #### [facility] [address] [place] [id number] [place] Transferrin [Mass/Vol] 266 mg/dL Normal 203-362 Th e [facility] Comment on above: Order Comment: Reaso n for Exam Renovascular hypertension;Renal artery stenosis;Dyslipidemia Performed By: #### C BC, CMP, ESR #### [facility] [address] [place] [id number] [facility] Iron binding capacity [Mass/ volume] in Serum or PlasmaOrdered By: Gonsalo You on 10-27-2023 Iron binding capacity [Mass/Vol] 372 ug/dL 255-450 [facility] Iron saturation [Mass Fracti on] in Serum or PlasmaOrdered By: Gonsalo You on 10-27-2023 Iron saturation [Mass fraction] 25.0 % 20-50 [facility] Leukocytes [#/volume] correc taylor for nucleated erythrocytes in Blood by Automated counOrdered By: Tamera Randall on 10-27-2023 WBC corrected for nucl RBC Auto (Bld) [#/Vol] 6.1 10*3/uL 3.8-11.6 [facility] Lymphocytes Auto (Bld) [#/Vo l]Ordered By: Tamera Randall on 10-27-2023 Lymphocytes (Bld) [#/Vol] 1.3 10*3/uL 1.00-4.8 [facility] Lymphocytes/100 WBC Auto (Bl d)Ordered By: Tamera Randall on 10-27-2023 Lymphocytes/100 WBC (Bld) 20.9 % . [facility] MCH Auto (RBC) [Entitic mass ]Ordered By: Tamera Randall on 10-27-2023 MCH (RBC) [Entitic mass] 30.4 pg 24.7-34.3 [facility] MCHC Auto (RBC) [Mass/Vol]Or dered By: Tamera Randall on 10-27-2023 MCHC (RBC) [Mass/Vol] 33.6 g/dL 32.0-35.0 [facility] MCV Auto (RBC) [Entitic vol] Ordered By: Tamera Randall on 10-27-2023 MCV (RBC) [Entitic vol] 90.4 fL 80-100 [facility] Magnesiumon 10-27-2023 Magnesium [Mass/Vol] 1.9 mg/dL Normal 1.9-2.7 [facility] Comment on above: Order Comment: Reaso n for Exam Renovascular hypertension;Renal artery stenosis;Dyslipidemia Performed By: #### C BC, CMP, ESR #### [facility] [address] Magnesium [Mass/volume] in S jl or PlasmaOrdered By: Gonsalo Stevens on 10-27-2023 Magnesium [Mass/Vol] 1.9 mg/dL 1.9-2.7 [facility] Monocytes Auto (Bld) [#/Vol] Ordered By: Tamera Randall on 10-27-2023 Monocytes (Bld) [#/Vol] 0.5 10*3/uL 0.0-0.8 [facility] Monocytes/100 WBC Auto (Bld) Ordered By: Tamera Randall on 10-27-2023 Monocytes/100 WBC (Bld) 7.5 % . [facility] Neutrophils Auto (Bld) [#/Vo l]Ordered By: Tamera Randall on 10-27-2023 Neutrophils (Bld) [#/Vol] 4.1 10*3/uL 1.8-7.7 [facility] Neutrophils/100 WBC Auto (Bl d)Ordered By: Tamera Randall on 10-27-2023 Neutrophils/100 WBC (Bld) 68.2 % . [facility] No Panel InformationOrdered By: Tamera Randall on 10-27-2023 Estimated GFR (CKD-EPI) > 60.0 mL/Min [facility] Creatinine Clearance (Chem N/A [facility] Nucleated erythrocytes [Pres ence] in Blood by Automated countOrdered By: Tamera Randall on 10-27-2023 Nucleated RBC Auto Ql (Bld) 0.1 /100{WBC} 0-0.5 [facility] Parathyrin.intact [Mass/volu me] in Serum or PlasmaOrdered By: Gonsalo Stevens on 10-27-2023 Parathyrin.intact [Mass/Vol] 29.8 pg/mL [facility] Parathyroid Hormone Intacton 10-27-2023 Parathyroid Hormone Intact 29.8 pg/mL Normal [facility] Comment on above: Order Comment: Reaso n for Exam Renovascular hypertension;Renal artery stenosis;Dyslipidemia Result Comment: PERF ORMED BY: [place] [address] PATHOLOGIST STUDIO ARTIST ONEIL GAMA M.D. Performed By: #### P TH #### [address] Phosphate [Mass/volume] in S jl or PlasmaOrdered By: Gonsalo Stevens on 10-27-2023 Phosphate [Mass/Vol] 4.4 mg/dL 2.5-4.5 [facility] Platelet mean volume Auto (B ld) [Entitic vol]Ordered By: Tamera Randall on 10-27-2023 Platelet mean volume (Bld) [Entitic vol] 9.3 fL 6.3-10.7 [facility] Platelets Auto (Bld) [#/Vol] Ordered By: Tamera Randall on 10-27-2023 Platelets (Bld) [#/Vol] 275 10*3/uL 150-450 [facility] Potassium [Moles/volume] in Serum or PlasmaOrdered By: Tamera Randall on 10-27-2023 Potassium [Moles/Vol] 4.5 mmol/L 3.5-5.1 [facility] Protein [Mass/volume] in Ser um or PlasmaOrdered By: Tamera Randall on 10-27-2023 Protein [Mass/Vol] 7.1 g/dL 6.4-8.9 [facility] RBC Auto (Bld) [#/Vol]Ordere d By: Tamera Randall on 10-27-2023 RBC (Bld) [#/Vol] 3.93 10*6/uL 3.60-5.00 [facility] Renal Function Panelon 10-26 Phosphate [Mass/Vol] 4.4 mg/dL Normal 2.5-4.5 [facility] Comment on above: Order Comment: Reaso n for Exam Renovascular hypertension;Renal artery stenosis;Dyslipidemia Performed By: #### E SR, RENAL, [id number], MG, [id number], URIC, CMP, FE and TIBC, CBC, JAS #### [facility] [address] Serum or plasma albumin/glob ulin mass ratioOrdered By: Tamera Randall on 10-27-2023 Albumin/Globulin [Mass ratio] 1.7 {ratio} [facility] Serum or plasma anion gap de terminationOrdered By: Tamera Randall on 10-27-2023 Anion gap [Moles/Vol] 12.8 mmol/L 6.0-15.0 [facility] Sodium [Moles/volume] in Ser um or PlasmaOrdered By: Tamera Randall on 10-27-2023 Sodium [Moles/Vol] 132 mmol/L 136-145 [facility] Transferrin [Mass/volume] in Serum or PlasmaOrdered By: Gonsalo You on 10-27-2023 Transferrin [Mass/Vol] 266 mg/dL 203-362 [facility] Urate [Mass/volume] in Serum or PlasmaOrdered By: Gonsalo You on 10-27-2023 Urate [Mass/Vol] 2.9 mg/dL 2.3-6.6 [facility] Urea nitrogen [Mass/volume] in Serum or PlasmaOrdered By: Tamera Randall on 10-27-2023 Urea nitrogen [Mass/Vol] 21 mg/dL 7-25 [facility] Uric Acidon 10-27-2023 Urate [Mass/Vol] 2.9 mg/dL Normal 2.3-6.6 [facility] Comment on above: Order Comment: Reaso n for Exam Renovascular hypertension;Renal artery stenosis;Dyslipidemia Performed By: #### C BC, CMP, ESR #### [facility] [address] Vit. B12/Folate Profileon Cobalamin (Vitamin B12) [Mass/Vol] 1280 pg/mL High 180-914 [facility] Comment on above: Order Comment: Reaso n for Exam Renovascular hypertension;Renal artery stenosis;Dyslipidemia Performed By: #### C BC, CMP, ESR #### [address] Folate 36.0 ng/mL Normal >5.9 [facility] Comment on above: Order Comment: Reaso n for Exam Renovascular hypertension;Renal artery stenosis;Dyslipidemia Result Comment: Alcira te reference range: >5.9 ng/ml The WHO technical consultation on folate and vitamin b12 deficiencies has determined that folate concentrations less than 4 ng/ml are considered deficient. Performed By: #### C BC, CMP, ESR #### [address] Vitamin B12 ser/plasOrdered By: Gonsalo Stevens on 10-27-2023 Cobalamin (Vitamin B12) [Mass/Vol] 1280 pg/mL 180-914 [facility] Vitamin D 25 Hydroxy Totalon 10-27-2023 Vitamin D 25 Hydroxy Total 57.7 ng/mL Normal 30-100 [facility] Comment on above: Order Comment: Reaso n for Exam Renovascular hypertension;Renal artery stenosis;Dyslipidemia Result Comment: BOBO MIN D STATUS 25(OH)VITAMIN D RANGE (ng/mL) Deficient <20 Insufficient 20 to <30 Sufficient 30 to 100 Reference: Gail MF,Laly NC, Magui GASPAR, et al. Evaluation,treatment, and prevention of vitamin D deficiency; an Endocrine Society clinical practice guideline. JCEM. 2010; 96(7):1911-30. PERFORMED BY: [place] [address] PATHOLOGIST STUDIO ARTIST ONEIL GAMA M.D. Performed By: #### C BC, CMP, ESR #### [address] Vitamin D+Metabolites [Mass/ volume] in Serum or PlasmaOrdered By: Gonsalo Stevens on 10-27-2023 Vitamin D+Metabolites [Mass/Vol] 57.7 ng/mL 30-100 [facility] Comment on above: VITAMIN D STATUS 25( [place])VITAMIN D RANGE (ng/mL) Deficient <20 Insufficient 20 to <30Sufficient 30 to 100Reference: Gail MF,Laly NC, Magui GASPAR, et al. Evaluation,treatment, and prevention of vitamin D deficiency; an Endocrine Society clinical practice guideline. JCEM. 2010; 96(6):1911-30. WBC Auto (Bld) [#/Vol]Ordere d By: Tamera Randall on 10-27-2023 WBC (Bld) [#/Vol] 6.1 10*3/uL 3.8-11.6 [facility] Alanine aminotransferase [En zymatic activity/volume] in Serum or PlasmaOrdered By: Tamera Randall on 04-29-2023 ALT [Catalytic activity/Vol] 17 U/L 7-52 [facility] Albumin [Mass/volume] in Ser um or Plasma by Bromocresol green (BCG) dye binding methoOrdered By: Tamera Randall on 04-29-2023 Albumin BCG dye [Mass/Vol] 4.4 g/dL 3.5-5.7 [facility] Alkaline phosphatase [Enzyma tic activity/volume] in Serum or PlasmaOrdered By: Tamera Randall on 04-29-2023 ALP [Catalytic activity/Vol] 79 U/L 34-104 [facility] Aspartate aminotransferase [ Enzymatic activity/volume] in Serum or PlasmaOrdered By: Tamera Randall on 04-29-2023 AST [Catalytic activity/Vol] 20 U/L 13-39 [facility] Basophils Auto (Bld) [#/Vol] Ordered By: Tamera Randall on 04-29-2023 Basophils (Bld) [#/Vol] 0.0 10*3/uL 0.0-0.2 [facility] Basophils/100 WBC Auto (Bld) Ordered By: Tamera Randall on 04-29-2023 Basophils/100 WBC (Bld) 0.9 % . [facility] Bilirubin.total [Mass/volume ] in Serum or PlasmaOrdered By: Tamera Randall on 04-29-2023 Bilirubin [Mass/Vol] 0.8 mg/dL 0.3-1.0 [facility] Calcium [Mass/volume] in Ser um or PlasmaOrdered By: Tamera Randall on 04-29-2023 Calcium [Mass/Vol] 9.6 mg/dL 8.6-10.3 [facility] Carbon dioxide, total [Moles /volume] in Serum or PlasmaOrdered By: Tamera Randall on 04-29-2023 CO2 [Moles/Vol] 29.3 mmol/L 21.0-31.0 [facility] Chloride [Moles/volume] in S jl or PlasmaOrdered By: Tamera Randall on 04-29-2023 Chloride [Moles/Vol] 98 mmol/L 98-107 [facility] Complete Blood Count Auto Di ffon 04-29-2023 Basophils (Bld) [#/Vol] 0.0 10*3/uL Normal 0.0-0.2 [facility] Comment on above: Performed By: #### C BC, CMP, ESR #### [facility] [address] [place] [address] [place] Basophils/100 WBC (Bld) 0.9 % Normal . T mookie [facility] Comment on above: Performed By: #### C BC, CMP, ESR #### [facility] [address] [place] [id number] [place] Eosinophils (Bld) [#/Vol] 0.2 10*3/uL Normal 0.0-0.45 [facility] Comment on above: Performed By: #### C BC, CMP, ESR #### [facility] [address] [place] [id number] [place] Eosinophils/100 WBC (Bld) 4.2 % Normal . [facility] Comment on above: Performed By: #### C BC, CMP, ESR #### [facility] [address] [place] [id number] [place] Erythrocyte distribution width (RBC) [Ratio] 13.3 % Normal 11.9-15.3 [facility] Comment on above: Performed By: #### C BC, CMP, ESR #### [address] Hematocrit (Bld) [Volume fraction] 34.2 % Normal 34.0-46.4 [facility] Comment on above: Performed By: #### C BC, CMP, ESR #### [address] Hemoglobin (Bld) [Mass/Vol] 11.5 g/dL Low 11.8-15.4 [facility] Comment on above: Performed By: #### C BC, CMP, ESR #### [address] Lymphocytes (Bld) [#/Vol] 1.4 10*3/uL Normal 1.00-4.8 [facility] Comment on above: Performed By: #### C BC, CMP, ESR #### [address] Lymphocytes/100 WBC (Bld) 29.9 % Normal . [facility] Comment on above: Performed By: #### C BC, CMP, ESR #### [address] MCH (RBC) [Entitic mass] 30.3 pg Normal 24.7-34.3 [facility] Comment on above: Performed By: #### C BC, CMP, ESR #### [address] MCV (RBC) [Entitic vol] 90.0 fL Normal 80-100 T he [facility] Comment on above: Performed By: #### C BC, CMP, ESR #### [address] Mean Corpuscular HGB Conc 33.7 g/dL Normal 32.0-35.0 [facility] Comment on above: Performed By: #### C BC, CMP, ESR #### [address] Monocytes (Bld) [#/Vol] 0.4 10*3/uL Normal 0.0-0.8 [facility] Comment on above: Performed By: #### C BC, CMP, ESR #### [facility] [address] [place] [address] [place] Monocytes/100 WBC (Bld) 8.2 % Normal . [facility] Comment on above: Performed By: #### C BC, CMP, ESR #### [facility] [address] [place] [address] [place] Neutrophils (Bld) [#/Vol] 2.7 10*3/uL Normal 1.8-7.7 [facility] Comment on above: Performed By: #### C BC, CMP, ESR #### [facility] [address] [place] [address] [place] Neutrophils/100 WBC (Bld) 56.8 % Normal . [facility] Comment on above: Performed By: #### C BC, CMP, ESR #### [facility] [address] [place] [address] [place] NRBC% 0.1 /100{WBC} Normal 0-0.5 [facility] Comment on above: Performed By: #### C BC, CMP, ESR #### [facility] [address] [place] [address] [place] Platelet mean volume (Bld) [Entitic vol] 8.9 fL Normal 6.3-10.7 [facility] Comment on above: Performed By: #### C BC, CMP, ESR #### [facility] [address] [place] [id number] [place] Platelets (Bld) [#/Vol] 276 10*3/uL Normal 150-450 [facility] Comment on above: Performed By: #### C BC, CMP, ESR #### [facility] [address] [place] [id number] [place] RBC (Bld) [#/Vol] 3.80 10*6/uL Normal 3.60-5.00 [facility] Comment on above: Performed By: #### C BC, CMP, ESR #### [facility] [address] [place] [id number] [place] WBC (Bld) [#/Vol] 4.8 10*3/uL Normal 3.8-11.6 [facility] Comment on above: Performed By: #### C BC, CMP, ESR #### [address] Comprehensive Metabolic Pane canelo 04-29-2023 Albumin [Mass/Vol] 4.4 g/dL Normal 3.5-5.7 [facility] Comment on above: Performed By: #### C BC, CMP, ESR #### [address] Albumin/Globulin [Mass ratio] 1.6 {ratio} Normal [facility] Comment on above: Performed By: #### C BC, CMP, ESR #### [address] ALP [Catalytic activity/Vol] 79 U/L Normal 34-104 [facility] Comment on above: Result Comment: PERF ORMED BY: [place] [address] PATHOLOGIST STUDIO ARTIST ONEIL GAMA M.D. Performed By: #### C BC, CMP, ESR #### [address] ALT [Catalytic activity/Vol] 17 U/L Normal 7-52 [facility] Comment on above: Performed By: #### C BC, CMP, ESR #### [address] Anion gap [Moles/Vol] 9.0 mmol/L Normal 6.0-15.0 [facility] Comment on above: Performed By: #### C BC, CMP, ESR #### [address] AST [Catalytic activity/Vol] 20 U/L Normal 13-39 [facility] Comment on above: Performed By: #### C BC, CMP, ESR #### [address] Bilirubin [Mass/Vol] 0.8 mg/dL Normal 0.3-1.0 [facility] Comment on above: Performed By: #### C BC, CMP, ESR #### [facility] [address] Calcium [Mass/Vol] 9.6 mg/dL Normal 8.6-10.3 [facility] Comment on above: Performed By: #### C BC, CMP, ESR #### [facility] [address] [place] [address] [place] Chloride [Moles/Vol] 98 mmol/L Normal 98-107 [facility] Comment on above: Performed By: #### C BC, CMP, ESR #### [facility] [address] [place] [address] [place] CO2 [Moles/Vol] 29.3 mmol/L Normal 21.0-31.0 [facility] Comment on above: Performed By: #### C BC, CMP, ESR #### [facility] [address] Creatinine [Mass/Vol] 0.73 mg/dL Normal 0.60-1.20 [facility] Comment on above: Performed By: #### C BC, CMP, ESR #### [facility] [address] [place] [address] [place] GFR/1.73 sq M.predicted MDRD (S/P/Bld) [Vol rate/Area] mL/min/{1.73_m2} Normal [facility] Comment on above: Performed By: #### C BC, CMP, ESR #### [facility] [address] Globulin (S) [Mass/Vol] 2.7 g/dL Normal T he [facility] Comment on above: Performed By: #### C BC, CMP, ESR #### [facility] [address] [place] [address] [place] Glucose [Mass/Vol] 83 mg/dL Normal 70-100 [facility] Comment on above: Result Comment: [place] Glucose Reference Range is dependent on time and content of last meal. Glucose of more than 200 mg/dL in a nonstressed, ambulatory subject supports the diagnosis of Diabetes Mellitus. ADA recommended reference range Performed By: #### C BC, CMP, ESR #### [facility] [address] [place] [address] [place] Potassium [Moles/Vol] 4.3 mmol/L Normal 3.5-5.1 [facility] Comment on above: Performed By: #### C BC, CMP, ESR #### [facility] [address] [place] [id number] [place] Protein [Mass/Vol] 7.1 g/dL Normal 6.4-8.9 [facility] Comment on above: Performed By: #### C BC, CMP, ESR #### [facility] [address] [place] [address] [place] Sodium [Moles/Vol] 132 mmol/L Low 136-145 [facility] Comment on above: Performed By: #### C BC, CMP, ESR #### [facility] [address] [place] [address] [place] Urea nitrogen [Mass/Vol] 18 mg/dL Normal 7-25 [facility] Comment on above: Performed By: #### C BC, CMP, ESR #### [facility] [address] [place] [address] [place] Creatinine [Mass/volume] in Serum or PlasmaOrdered By: Tamera Randall on 04-29-2023 Creatinine [Mass/Vol] 0.73 mg/dL 0.60-1.20 [facility] Eosinophils Auto (Bld) [#/Vo l]Ordered By: Tamera Randall on 04-29-2023 Eosinophils (Bld) [#/Vol] 0.2 10*3/uL 0.0-0.45 [facility] Eosinophils/100 WBC Auto (Bl d)Ordered By: Tamera Randall on 04-29-2023 Eosinophils/100 WBC (Bld) 4.2 % . [facility] Erythrocyte Sedimentation Ra eulalio 04-29-2023 ESR (Bld) [Velocity] 17 mm/h Normal 0-29 [facility] Comment on above: Result Comment: PERF ORMED BY: [facility] [address] [place] [address] PATHOLOGIST STUDIO ARTIST ONEIL GAMA M.D. Performed By: #### C BC, CMP, ESR #### [facility] [address] Erythrocyte distribution wid th Auto (RBC) [Ratio]Ordered By: Tamera Randall on 04-29-2023 Erythrocyte distribution width (RBC) [Ratio] 13.3 % 11.9-15.3 [facility] Erythrocyte sedimentation ra te by Photometric methodOrdered By: Tamera Randall on 04-29-2023 ESR Photometric method (Bld) [Velocity] 17 mm/hr 0-29 [facility] Globulin Calc (S) [Mass/Vol] Ordered By: Tamera Randall on 04-29-2023 Globulin (S) [Mass/Vol] 2.7 g/dL [facility] Glucose [Mass/volume] in Ser um or PlasmaOrdered By: Tamera Randall on 04-29-2023 Glucose [Mass/Vol] 83 mg/dL 70-100 [facility] Comment on above: ADA recommended refe rence rangeRandom Glucose Reference Range is dependent on time and content of last meal. Glucose of more than 200 mg/dL in a nonstressed, ambulatory subject supports the diagnosis of Diabetes Mellitus. Hematocrit Auto (Bld) [Volum e fraction]Ordered By: Tamera Randall on 04-29-2023 Hematocrit (Bld) [Volume fraction] 34.2 % 34.0-46.4 [facility] Hemoglobin [Mass/volume] in BloodOrdered By: Tamera Randall on 04-29-2023 Hemoglobin (Bld) [Mass/Vol] 11.5 g/dL 11.8-15.4 [facility] Leukocytes [#/volume] correc taylor for nucleated erythrocytes in Blood by Automated counOrdered By: Tamera Radnall on 04-29-2023 WBC corrected for nucl RBC Auto (Bld) [#/Vol] 4.8 10*3/uL 3.8-11.6 [facility] Lymphocytes Auto (Bld) [#/Vo l]Ordered By: Tamera Randall on 04-29-2023 Lymphocytes (Bld) [#/Vol] 1.4 10*3/uL 1.00-4.8 [facility] Lymphocytes/100 WBC Auto (Bl d)Ordered By: Tamera Randall on 04-29-2023 Lymphocytes/100 WBC (Bld) 29.9 % . [facility] MCH Auto (RBC) [Entitic mass ]Ordered By: Tamera Randall on 04-29-2023 MCH (RBC) [Entitic mass] 30.3 pg 24.7-34.3 [facility] MCHC Auto (RBC) [Mass/Vol]Or dered By: Tamera Randall on 04-29-2023 MCHC (RBC) [Mass/Vol] 33.7 g/dL 32.0-35.0 [facility] MCV Auto (RBC) [Entitic vol] Ordered By: Tamera Randall on 04-29-2023 MCV (RBC) [Entitic vol] 90.0 fL 80-100 [facility] Monocytes Auto (Bld) [#/Vol] Ordered By: Tamera Randall on 04-29-2023 Monocytes (Bld) [#/Vol] 0.4 10*3/uL 0.0-0.8 [facility] Monocytes/100 WBC Auto (Bld) Ordered By: Tamera Randall on 04-29-2023 Monocytes/100 WBC (Bld) 8.2 % . [facility] Neutrophils Auto (Bld) [#/Vo l]Ordered By: Tamera Randall on 04-29-2023 Neutrophils (Bld) [#/Vol] 2.7 10*3/uL 1.8-7.7 [facility] Neutrophils/100 WBC Auto (Bl d)Ordered By: Tamera Randall on 04-29-2023 Neutrophils/100 WBC (Bld) 56.8 % . [facility] No Panel InformationOrdered By: Tamera Randall on 04-29-2023 Estimated GFR (CKD-EPI) > 60.0 mL/Min [facility] Creatinine Clearance (Chem N/A [facility] Nucleated erythrocytes [Pres ence] in Blood by Automated countOrdered By: Tamera Randall on 04-29-2023 Nucleated RBC Auto Ql (Bld) 0.1 /100{WBC} 0-0.5 [facility] Platelet mean volume Auto (B ld) [Entitic vol]Ordered By: Tamera Randall on 04-29-2023 Platelet mean volume (Bld) [Entitic vol] 8.9 fL 6.3-10.7 [facility] Platelets Auto (Bld) [#/Vol] Ordered By: Tamera Randall on 04-29-2023 Platelets (Bld) [#/Vol] 276 10*3/uL 150-450 [facility] Potassium [Moles/volume] in Serum or PlasmaOrdered By: Tamera Randall on 04-29-2023 Potassium [Moles/Vol] 4.3 mmol/L 3.5-5.1 [facility] Protein [Mass/volume] in Ser um or PlasmaOrdered By: Tamera Randall on 04-29-2023 Protein [Mass/Vol] 7.1 g/dL 6.4-8.9 [facility] RBC Auto (Bld) [#/Vol]Ordere d By: Tamera Randall on 04-29-2023 RBC (Bld) [#/Vol] 3.80 10*6/uL 3.60-5.00 [facility] Serum or plasma albumin/glob ulin mass ratioOrdered By: Tamera Randall on 04-29-2023 Albumin/Globulin [Mass ratio] 1.6 {ratio} [facility] Serum or plasma anion gap de terminationOrdered By: Tamera Randall on 04-29-2023 Anion gap [Moles/Vol] 9.0 mmol/L 6.0-15.0 [facility] Sodium [Moles/volume] in Ser um or PlasmaOrdered By: Tamera Randall on 04-29-2023 Sodium [Moles/Vol] 132 mmol/L 136-145 [facility] Urea nitrogen [Mass/volume] in Serum or PlasmaOrdered By: Tamera Randall on 04-29-2023 Urea nitrogen [Mass/Vol] 18 mg/dL 7-25 [facility] WBC Auto (Bld) [#/Vol]Ordere d By: Tamera Randall on 04-29-2023 WBC (Bld) [#/Vol] 4.8 10*3/uL 3.8-11.6 [facility] MM screening mammo BI w/CADo n 01-08-2023 MM screening mammo BI w/CAD [facility] [place] [address] Mammography Report Signed Patient: Zeynep Abbasi MR#: [id number] : 1950 Acct:[id number] Age/Sex: 72 / F ADM Date: 01/08/23 Loc: [place] Room: Type: [facility] Attending Dr: José Luis Brennan MD Copies to: MD Hudson REMY MD Ordering Provider: JOSÉ LUIS BRENNAN MD Date of Service: 01/08/23 MM/MM screening mammo BI w/CAD: screening;Breast cancer screening CLINICAL DATA: Screening for malignancy. BILATERAL SCREENING MAMMOGRAMS - FULL FIELD DIGITAL WITH TOMOSYNTHESIS AND CAD Tomosynthesis craniocaudal and mediolateral oblique views of both breasts were obtained using low- dose digital technique. Comparison is made to prior studies from October 14, 2018 through December 10, 2021. This examination was reviewed with the aid of CAD. There are scattered fibroglandular densities. Benign and vascular calcifications are present. There are no developing masses, typically malignant calcifications or architectural distortion. There has been no significant interval change. MM/MM screening mammo BI w/CAD IMPRESSION: NO MAMMOGRAPHIC EVIDENCE OF MALIGNANCY. ROUTINE FOLLOW-UP IS RECOMMENDED IN ONE YEAR. RESULT CODE: 2 Benign Findings(s) DENSITY CODE: 2 (approximately 25-50% glandular) FOLLOW UP: 1YR The false-negative rate of mammography is approximately 10-percent. Management of a palpable abnormality must be based on clinical grounds. Patient was entered into a reminder system with a target due date for the next mammogram. Impression dictated by: Leidy Dorman M.D.01/08/2023 3:01 PM Dictation Location: [facility] Transcribed By: ARIELLA 01/08/23 1501 Dictated By: Leidy Dorman MD 01/08/23 1458 Signed By: 01/08/23 1501 Normal [facility] XR knee LT 2Von 10-29-2022 XR knee LT 2V [facility] [place] [address] XRay Report Signed Patient: Zeynep Abbasi MR#: [id number] : 1950 Acct:[id number] Age/Sex: 72 / F ADM Date: 10/29/22 Loc: ICXD Room: Type: [facility] Attending Dr: Torie GOLDEN Copies to: CHANTEL Zaldivar Ordering Provider: CHANTEL Zaldivar Date of Service: 10/29/22 XR/XR knee LT 2V: pain XR knee LT 2V 10/29/2022 11:23 AM SIGNS AND SYMPTOMS: Swelling and pain over the lateral and anterior aspect of the left knee PROTOCOL: Frontal and lateral radiographs of the left knee COMPARISON: None FINDINGS: There is chondrocalcinosis of the menisci suggesting underlying CPPD. There is mild narrowing of the patellofemoral joint space. There is a moderate joint effusion. There is no acute bony injury. XR/XR knee LT 2V IMPRESSION: There is chondrocalcinosis of the menisci suggesting underlying CPPD. There is a moderate joint effusion. No acute bony injury. Impression dictated by: Jordan Reyes M.D.10/29/2022 3:11 PM Dictation Location: [place] [address] Transcribed By: [facility] 10/29/22 151 Dictated By: Jordan Reyes II, MD 10/29/22 1510 Signed By: 10/29/22 151 Normal [facility] Alanine aminotransferase [En zymatic activity/volume] in Serum or PlasmaOrdered By: Tamera Randall on 10-25-2022 ALT [Catalytic activity/Vol] 16 U/L 7-52 [facility] Albumin [Mass/volume] in Ser um or Plasma by Bromocresol green (BCG) dye binding methoOrdered By: Tamera Randall on 10-25-2022 Albumin BCG dye [Mass/Vol] 4.4 g/dL 3.5-5.7 [facility] Alkaline phosphatase [Enzyma tic activity/volume] in Serum or PlasmaOrdered By: Tamera Randall on 10-25-2022 ALP [Catalytic activity/Vol] 72 U/L 34-104 [facility] Aspartate aminotransferase [ Enzymatic activity/volume] in Serum or PlasmaOrdered By: Tamera Randall on 10-25-2022 AST [Catalytic activity/Vol] 21 U/L 13-39 [facility] Basophils Auto (Bld) [#/Vol] Ordered By: Tamera Randall on 10-25-2022 Basophils (Bld) [#/Vol] 0.0 10*3/uL 0.0-0.2 [facility] Basophils/100 WBC Auto (Bld) Ordered By: Tamera Randall on 10-25-2022 Basophils/100 WBC (Bld) 0.7 % . [facility] Bilirubin.total [Mass/volume ] in Serum or PlasmaOrdered By: Tamera Randall on 10-25-2022 Bilirubin [Mass/Vol] 0.7 mg/dL 0.3-1.0 [facility] Calcium [Mass/volume] in Ser um or PlasmaOrdered By: Tamera Randall on 10-25-2022 Calcium [Mass/Vol] 9.2 mg/dL 8.6-10.3 [facility] Carbon dioxide, total [Moles /volume] in Serum or PlasmaOrdered By: Tamera Randall on 10-25-2022 CO2 [Moles/Vol] 27.0 mmol/L 21.0-31.0 [facility] Chloride [Moles/volume] in S jl or PlasmaOrdered By: Tamera Randall on 10-25-2022 Chloride [Moles/Vol] 98 mmol/L 98-107 [facility] Creatinine [Mass/volume] in Serum or PlasmaOrdered By: Tamera Randall on 10-25-2022 Creatinine [Mass/Vol] 0.70 mg/dL 0.60-1.20 [facility] Eosinophils Auto (Bld) [#/Vo l]Ordered By: Tamera Randall on 10-25-2022 Eosinophils (Bld) [#/Vol] 0.2 10*3/uL 0.0-0.45 [facility] Eosinophils/100 WBC Auto (Bl d)Ordered By: Tamera Randall on 10-25-2022 Eosinophils/100 WBC (Bld) 3.2 % . [facility] Erythrocyte distribution wid th Auto (RBC) [Ratio]Ordered By: Tamera Randall on 10-25-2022 Erythrocyte distribution width (RBC) [Ratio] 13.5 % 11.9-15.3 [facility] Erythrocyte sedimentation ra te by Photometric methodOrdered By: Tamera Randall on 10-25-2022 ESR Photometric method (Bld) [Velocity] 23 mm/hr 0-29 [facility] Globulin Calc (S) [Mass/Vol] Ordered By: Tamera Randall on 10-25-2022 Globulin (S) [Mass/Vol] 2.5 g/dL [facility] Glucose [Mass/volume] in Ser um or PlasmaOrdered By: Tamera Randall on 10-25-2022 Glucose [Mass/Vol] 86 mg/dL 70-100 [facility] Comment on above: ADA recommended refe rence rangeRandom Glucose Reference Range is dependent on time and content of last meal. Glucose of more than 200 mg/dL in a nonstressed, ambulatory subject supports the diagnosis of Diabetes Mellitus. Hematocrit Auto (Bld) [Volum e fraction]Ordered By: Tamera Randall on 10-25-2022 Hematocrit (Bld) [Volume fraction] 35.7 % 34.0-46.4 [facility] Hemoglobin [Mass/volume] in BloodOrdered By: Tamera Randall on 10-25-2022 Hemoglobin (Bld) [Mass/Vol] 12.1 g/dL 11.8-15.4 [facility] Leukocytes [#/volume] correc taylor for nucleated erythrocytes in Blood by Automated counOrdered By: Tamera Randall on 10-25-2022 WBC corrected for nucl RBC Auto (Bld) [#/Vol] 4.9 10*3/uL 3.8-11.6 [facility] Lymphocytes Auto (Bld) [#/Vo l]Ordered By: Tamera Randall on 10-25-2022 Lymphocytes (Bld) [#/Vol] 1.4 10*3/uL 1.00-4.8 [facility] Lymphocytes/100 WBC Auto (Bl d)Ordered By: Tamera Randall on 10-25-2022 Lymphocytes/100 WBC (Bld) 28.5 % . [facility] MCH Auto (RBC) [Entitic mass ]Ordered By: Tamera Randall on 10-25-2022 MCH (RBC) [Entitic mass] 30.4 pg 24.7-34.3 [facility] MCHC Auto (RBC) [Mass/Vol]Or dered By: Tamera Randall on 10-25-2022 MCHC (RBC) [Mass/Vol] 33.9 g/dL 32.0-35.0 [facility] MCV Auto (RBC) [Entitic vol] Ordered By: Tamera Randall on 10-25-2022 MCV (RBC) [Entitic vol] 89.6 fL 80-100 [facility] Monocytes Auto (Bld) [#/Vol] Ordered By: Tamera Randall on 10-25-2022 Monocytes (Bld) [#/Vol] 0.4 10*3/uL 0.0-0.8 [facility] Monocytes/100 WBC Auto (Bld) Ordered By: Tamera Randall on 10-25-2022 Monocytes/100 WBC (Bld) 8.7 % . [facility] Neutrophils Auto (Bld) [#/Vo l]Ordered By: Tamera Randall on 10-25-2022 Neutrophils (Bld) [#/Vol] 2.9 10*3/uL 1.8-7.7 [facility] Neutrophils/100 WBC Auto (Bl d)Ordered By: Tamera Randall on 10-25-2022 Neutrophils/100 WBC (Bld) 58.9 % . [facility] No Panel InformationOrdered By: Tamera Randall on 10-25-2022 Estimated GFR (CKD-EPI) > 60.0 mL/Min [facility] Creatinine Clearance (Chem N/A [facility] Nucleated erythrocytes [Pres ence] in Blood by Automated countOrdered By: Tamera Randall on 10-25-2022 Nucleated RBC Auto Ql (Bld) 0.2 /100{WBC} 0-0.5 [facility] Platelet mean volume Auto (B ld) [Entitic vol]Ordered By: Tamera Randall on 10-25-2022 Platelet mean volume (Bld) [Entitic vol] 8.6 fL 6.3-10.7 [facility] Platelets Auto (Bld) [#/Vol] Ordered By: Tamera Randall on 10-25-2022 Platelets (Bld) [#/Vol] 266 10*3/uL 150-450 [facility] Potassium [Moles/volume] in Serum or PlasmaOrdered By: Tamera Randall on 10-25-2022 Potassium [Moles/Vol] 4.1 mmol/L 3.5-5.1 [facility] Protein [Mass/volume] in Ser um or PlasmaOrdered By: Tamera Randall on 10-25-2022 Protein [Mass/Vol] 6.9 g/dL 6.4-8.9 [facility] RBC Auto (Bld) [#/Vol]Ordere d By: Tamera Randall on 10-25-2022 RBC (Bld) [#/Vol] 3.99 10*6/uL 3.60-5.00 [facility] Serum or plasma albumin/glob ulin mass ratioOrdered By: Tamera Randall on 10-25-2022 Albumin/Globulin [Mass ratio] 1.8 {ratio} [facility] Serum or plasma anion gap de terminationOrdered By: Tamera Randall on 10-25-2022 Anion gap [Moles/Vol] 12.1 mmol/L 6.0-15.0 [facility] Sodium [Moles/volume] in Ser um or PlasmaOrdered By: Tamera Randall on 10-25-2022 Sodium [Moles/Vol] 133 mmol/L 136-145 [facility] Urea nitrogen [Mass/volume] in Serum or PlasmaOrdered By: Tamera Randall on 10-25-2022 Urea nitrogen [Mass/Vol] 15 mg/dL 7-25 [facility] WBC Auto (Bld) [#/Vol]Ordere d By: Tamera Randall on 10-25-2022 WBC (Bld) [#/Vol] 4.9 10*3/uL 3.8-11.6 [facility] XR Knee Complete Right*on XR Knee Complete Right* HISTORY: Posteri or knee pain with redness and swelling. COMPARISON: Radiograph 01/21/2019 TECHNIQUE: AP, lateral, and oblique views. FINDINGS: No acute fracture or dislocation. Joint spaces are maintained. Small joint effusion. Soft tissues are within normal limits. IMPRESSION: No acute osseous abnormality. Report reported and signed by Juan Wan on 07/19/2022 1225 Normal [facility] [employer] VITAMIN D 25 OHon 07-15-2022 VIT D 25-OH 55.7 ng/mL Normal [facility] Comment on above: Performed By: #### V ITAD #### [facility] [address], [place] [address] Dr. Aniceto Elizondo VIT D RANGES SEE BELOW Normal [facility] Comment on above: Result Comment: <20 ng/mL Vit D deficient 20 - <30 ng/mL Vit D insufficient 30 - 100 ng/mL Vit D sufficient >100 ng/mL Potential Toxicity Performed By: #### V ITAD #### [facility] [address], [place] [address] Dr. Aniceto Elizondo Albumin [Mass/volume] in Ser um or PlasmaOrdered By: Tamera Randall on 04-25-2022 Albumin [Mass/Vol] 4.0 g/dL 3.2-5.5 [facility] Basophils Auto (Bld) [#/Vol] Ordered By: Tamera Randall on 04-25-2022 Basophils (Bld) [#/Vol] 0.1 10*3/uL 0.0-0.2 [facility] Basophils/100 WBC Auto (Bld) Ordered By: Tamera Randall on 04-25-2022 Basophils/100 WBC (Bld) 1.1 % . [facility] Creatinine and Glomerular fi ltration rate.predicted panel (S/P/Bld)Ordered By: Tamera Randall on 04-25-2022 Creatinine [Mass/Vol] 0.64 mg/dL 0.44-1.03 [facility] Eosinophils Auto (Bld) [#/Vo l]Ordered By: Tamera Randall on 04-25-2022 Eosinophils (Bld) [#/Vol] 0.2 10*3/uL 0.0-0.45 [facility] Eosinophils/100 WBC Auto (Bl d)Ordered By: Tamera Randall on 04-25-2022 Eosinophils/100 WBC (Bld) 2.9 % . [facility] Erythrocyte distribution wid th Auto (RBC) [Ratio]Ordered By: Tamera Randall on 04-25-2022 Erythrocyte distribution width (RBC) [Ratio] 13.6 % 11.9-15.3 [facility] Erythrocyte sedimentation ra te by Photometric methodOrdered By: Tamera Randall on 04-25-2022 ESR Photometric method (Bld) [Velocity] 21 mm/hr 0-29 [facility] Estimated glomerular filtrat ion rate (GFR) non- AmericanOrdered By: Tamera Randall on 04-25-2022 GFR/1.73 sq M.predicted among non-blacks MDRD (S/P/Bld) [Vol rate/Area] > 60 mL/Min [facility] Globulin Calc (S) [Mass/Vol] Ordered By: Tamera Randall on 04-25-2022 Globulin (S) [Mass/Vol] 2.7 g/dL [facility] Hematocrit Auto (Bld) [Volum e fraction]Ordered By: Tamera Randall on 04-25-2022 Hematocrit (Bld) [Volume fraction] 35.1 % 34.0-46.4 [facility] Hemoglobin [Mass/volume] in BloodOrdered By: Tamera Randall on 04-25-2022 Hemoglobin (Bld) [Mass/Vol] 11.9 g/dL 11.8-15.4 [facility] Laboratory - Hematology and Cell countsOrdered By: Tamera Randall on 04-25-2022 Nucleated RBC/100 WBC (Bld) [Ratio] 0.1 % 0-0.5 [facility] Leukocytes [#/volume] in Blo od by Automated countOrdered By: Tamera Randall on 04-25-2022 WBC (Bld) [#/Vol] 5.6 10*3/uL 4.5-11.0 [facility] Lymphocytes Auto (Bld) [#/Vo l]Ordered By: Tamera Randall on 04-25-2022 Lymphocytes (Bld) [#/Vol] 1.7 10*3/uL 1.00-4.8 [facility] Lymphocytes/100 WBC Auto (Bl d)Ordered By: Tamera Randall on 04-25-2022 Lymphocytes/100 WBC (Bld) 29.8 % . [facility] MCH Auto (RBC) [Entitic mass ]Ordered By: Tamera Randall on 04-25-2022 MCH (RBC) [Entitic mass] 30.7 pg 24.7-34.3 [facility] MCHC Auto (RBC) [Mass/Vol]Or dered By: Tamera Randall on 04-25-2022 MCHC (RBC) [Mass/Vol] 33.9 g/dL 32.0-35.0 [facility] MCV Auto (RBC) [Entitic vol] Ordered By: Tamera Randall on 04-25-2022 MCV (RBC) [Entitic vol] 90.6 fL 80-100 [facility] Monocytes Auto (Bld) [#/Vol] Ordered By: Tamera Randall on 04-25-2022 Monocytes (Bld) [#/Vol] 0.5 10*3/uL 0.0-0.8 [facility] Monocytes/100 WBC Auto (Bld) Ordered By: Tamera Randall on 04-25-2022 Monocytes/100 WBC (Bld) 8.4 % . [facility] Neutrophils Auto (Bld) [#/Vo l]Ordered By: Tamera Randall on 04-25-2022 Neutrophils (Bld) [#/Vol] 3.2 10*3/uL 1.8-7.7 [facility] Neutrophils/100 WBC Auto (Bl d)Ordered By: Tamera Randall on 04-25-2022 Neutrophils/100 WBC (Bld) 57.8 % . [facility] No Panel InformationOrdered By: Tamera Randall on 04-25-2022 Estimated GFR () > 60 mL/Min [facility] Comment on above: GFR estimated refere nce range: According to KDOQI guidelines, <60 ml/min/1.73m2 is sufficient to diagnose a patient with chronic kidney disease. Pharmacy Creatinine Clearance (Chem N/A [facility] Platelet mean volume Auto (B ld) [Entitic vol]Ordered By: Tamera Randall on 04-25-2022 Platelet mean volume (Bld) [Entitic vol] 8.7 fL 6.3-10.7 [facility] Platelets Auto (Bld) [#/Vol] Ordered By: Tamera Randlal on 04-25-2022 Platelets (Bld) [#/Vol] 353 10*3/uL 150-450 [facility] Protein [Mass/volume] in Ser um or PlasmaOrdered By: Tamera Randall on 04-25-2022 Protein [Mass/Vol] 6.7 g/dL 6.1-7.9 [facility] RBC Auto (Bld) [#/Vol]Ordere d By: Tamera Randall on 04-25-2022 RBC (Bld) [#/Vol] 3.87 10*6/uL 3.60-5.00 [facility] Serum or plasma alanine craig otransferase measurement without P-5'-P (enzymatic activiOrdered By: Tamera Randall on 04-25-2022 ALT No additional P-5'-P [Catalytic activity/Vol] 23 U/L [facility] Serum or plasma albumin/glob ulin mass ratioOrdered By: Tamera Randall on 04-25-2022 Albumin/Globulin [Mass ratio] 1.5 {ratio} [facility] Serum or plasma alkaline lakisha sphatase measurement (enzymatic activity/volume)Ordered By: Tamera Randall on 04-25-2022 ALP [Catalytic activity/Vol] 72 U/L 32-92 [facility] Serum or plasma anion gap de terminationOrdered By: Tamera Randall on 04-25-2022 Anion gap [Moles/Vol] 14.0 mmol/L 6.0-15.0 [facility] Serum or plasma aspartate am inotransferase measurement (enzymatic activity/volume)Ordered By: Tamera Randall on 04-25-2022 AST [Catalytic activity/Vol] 26 U/L [facility] Serum or plasma calcium yvonne urement (mass/volume)Ordered By: Tamera Randall on 04-25-2022 Calcium [Mass/Vol] 9.8 mg/dL 8.2-10.2 [facility] Serum or plasma chloride elpidio surement (moles/volume)Ordered By: Tamera Randall on 04-25-2022 Chloride [Moles/Vol] 95 mmol/L 95-114 [facility] Serum or plasma glucose yvonne urement (mass/volume)Ordered By: Tamera Randall on 04-25-2022 Glucose [Mass/Vol] 92 mg/dL 70-100 [facility] Comment on above: ADA recommended refe rence rangeRandom Glucose Reference Range is dependent on time and content of last meal. Glucose of more than 200 mg/dL in a nonstressed, ambulatory subject supports the diagnosis of Diabetes Mellitus. Serum or plasma potassium me asurement (moles/volume)Ordered By: Tamera Randall on 04-25-2022 Potassium [Moles/Vol] 4.6 mmol/L 3.5-5.1 [facility] Serum or plasma sodium measu rement (moles/volume)Ordered By: Tamera Randall on 04-25-2022 Sodium [Moles/Vol] 130 mmol/L 136-146 [facility] Serum or plasma total biliru bin measurement (mass/volume)Ordered By: Tamera Randall on 04-25-2022 Bilirubin [Mass/Vol] 0.7 mg/dL 0.3-1.2 [facility] Serum or plasma total carbon dioxide measurement (moles/volume)Ordered By: Tamera Randall on 04-25-2022 CO2 [Moles/Vol] 25.6 mmol/L 22.0-30.0 [facility] Serum or plasma urea nitroge n measurement (mass/volume)Ordered By: Tamera Randall on 04-25-2022 Urea nitrogen [Mass/Vol] 13 mg/dL 9-[address] [facility] [address] Abdomen/Pelvis w/ Contras ton 04-17-2022 CT Abdomen/Pelvis w/ Contrast HISTORY: Pain COMPARISON: None TECHNIQUE: Multiple contiguous axial images were obtained of the abdomen and pelvis with contrast. Multiplanar reformats were acquired at the CT console. Oral contrast was also given. All CT scans at this facility use dose modulation, iterative reconstruction, and/or weight based dosing when appropriate to reduce radiation dose to as low as reasonably achievable. FINDINGS: Lungs: Lung bases are clear. Liver: Caudal dimension 19.8. Normal in shape, and decreased in attenuation. Bile ducts: Normal in caliber. Gallbladder: No stones or wall thickening. Pancreas: Normal, without masses, cysts, ductal dilatation, or calcification. Spleen: Normal in size without masses or calcifications. No splenules. Kidneys: Normal in size and enhancement. No hydronephrosis, masses, or stones. Adrenals: Normal. Small bowel: Normal in caliber. Appendix: Not visualized. Colon: Normal in caliber. Peritoneum: No ascites, free air, or fluid collections. Vessels: Aorta normal in course and caliber. Portal vein, splenic vein, superior mesenteric vein are patent. Lymph nodes: Retroperitoneal: No enlarged retroperitoneal lymph nodes. Mesenteric: No enlarged mesenteric lymph nodes. Pelvic: No enlarged pelvic lymph nodes. Ureters: Normal in course and caliber. No calcifications. Bladder: No wall thickening. Reproductive organs: No pelvic masses. Abdominal wall: 1.1 cm fat containing periumbilical anterior wall defect. Bones: No bone lesions. Diffuse disc space narrowing, L5-S1. Anterior osteophytes L4-L5. No postoperative changes. IMPRESSION: Hepatomegaly.. Hepatic steatosis. Report reported and signed by Ky Carvalho on 04/17/2022 1540 Normal [facility] XR Abdomen 2 Viewson 022 XR Abdomen 2 Views HISTORY: Constipation. Pain. Bloating. Distention COMPARISON: None available TECHNIQUE: Frontal view of the abdomen and pelvis FINDINGS: No calcifications identified over the renal shadows, expected course of the ureters, urinary bladder. 10 mm calcification projecting over the right pelvis is most likely vascular however if there is concern for obstructive uropathy, CT of the abdomen/pelvis without contrast is recommended. There are a few nondistended gas-filled loops of small bowel within the left mid abdomen. Air-fluid levels of the colon are identified, especially the ascending colon. No evidence of free air. Bones appear within normal limits. IMPRESSION: Gas-filled nondistended loops of small bowel and air-fluid levels in the colon are nonspecific findings that may represent ileus. If there is concern for small bowel obstruction, CT of the abdomen and pelvis with contrast is recommended. Report reported and signed by Juan Wan on 04/10/2022 1614 Normal [facility] Covid-19 PCR (CVDTBH)on 02-05 SARS-CoV-2 (COVID-19) RNA NICOLASA+probe Ql (Unsp spec) Not detected Normal NOT DETECTED [facility] Comment on above: Result Comment: This test is not yet approved or cleared by the [place] FDA. When there are no FDA-approved or cleared tests available, and other criteria are met, FDA can make tests available under an emergency access mechanism called an Emergency Use Authorization (EUA). The EUA for this test is supported by the [place] of Health and Human Service's (HHS's) declaration that circumstances exist to justify the emergency use of in vitro diagnostics for the detection and/or diagnosis of the virus that causes COVID-19. This EUA will remain in effect (meaning this test can be used) for the duration of the COVID-19 declaration justifying emergency of IVDs, unless it is terminated or revoked by FDA (after which the test may no longer be used). When diagnostic testing is negative, the possibility of a false negative should be considered in the context of a patient's recent exposures and the presence of clinical signs and symptoms consistent with SARS-CoV-2. Performed By: #### C VDTBH #### [facility] [address] [place] [address] Dr. Aniceto Elizondo LIPID PROFILEon 02-11-2022 CHOL-HDL RATIO NORM SEE BELOW Normal [facility] Comment on above: Result Comment: 3.3 - 4.4 LOW RISK 4.4 - 7.1 AVERAGE RISK 7.1 - 11.0 MODERATE RISK >11.0 HIGH RISK Performed By: #### L IPID, CMP #### [facility] [address] [place] [address] Dr. Aniceto Elizondo Cholesterol [Mass/Vol] 179 mg/dL Normal <=200 [facility] Comment on above: Performed By: #### L IPID, CMP #### [facility] [address] [place] [address] Dr. Aniceto Elizondo Cholesterol in HDL [Mass/Vol] 44 mg/dL Normal 40-60 [facility] Comment on above: Performed By: #### L IPID, CMP #### [facility] [address] [place] [address] Dr. Aniceto Elizondo Cholesterol in LDL [Mass/Vol] 94.2 mg/dL Normal [facility] Comment on above: Performed By: #### L IPID, CMP #### [facility] [address] [address] [address] Aniceto Elizondo Cholesterol.total/Joselyn sterol in HDL [Mass ratio] 4.1 {ratio} Normal [facility] Comment on above: Performed By: #### L IPID, CMP #### [facility] [address] [address] [address] Aniceto Elizondo HDL NORMAL > or = 60 mg/dl - LO W CARDIOVASCULAR RISK <40 mg/dl - HIGH CARDIOVASCULAR RISK Normal [facility] Comment on above: Performed By: #### L IPID, CMP #### [facility] [address] [place] [address] Dr. Aniceto Elizondo LDL CALC NORMAL SEE BELOW Normal [facility] Comment on above: Result Comment: <100 mg/dl OPTIMAL 100 - 129 mg/dl NEAR OR ABOVE OPTIMAL 130 - 159 mg/dl BORDERLINE HIGH 160 - 189 mg/dl HIGH >190 mg/dl VERY HIGH Performed By: #### L IPID, CMP #### [facility] [address] [address] [address] Aniceto Elizondo Triglyceride [Mass/Vol] 204 mg/dL Critically high <=150 [facility] Comment on above: Performed By: #### L IPID, CMP #### [facility] [address] [place] [address] Dr. Aniceto Elizondo VLDL CALC 40.8 mg/dL Normal [facility] Comment on above: Performed By: #### L IPID, CMP #### [facility] [address] [place] [address] Dr. Aniceto Elizondo PROF 14(COMP METB)on 022 Albumin [Mass/Vol] 3.8 g/dL Normal 3.4-5.[address] [facility] Comment on above: Performed By: #### L IPID, CMP #### [facility] [address] [place] [address] Dr. Aniceto Elizondo Albumin/Globulin [Mass ratio] 1.0 {ratio} Normal [facility] Comment on above: Performed By: #### L IPID, CMP #### [facility] [address] [address] [address] Aniceto Elizondo ALP [Catalytic activity/Vol] 76 U/L Normal 46-116 [facility] Comment on above: Performed By: #### L IPID, CMP #### [facility] [address] [address] [address] Aniceto Elizondo ALT [Catalytic activity/Vol] 24 U/L Normal 14-59 [facility] Comment on above: Performed By: #### L IPID, CMP #### [facility] [address] [address] [address] Aniceto Elizondo Anion gap [Moles/Vol] 14.2 mmol/L Normal [facility] Comment on above: Performed By: #### L IPID, CMP #### [facility] [address] [place] [address] Dr. Aniceto Elizondo AST [Catalytic activity/Vol] 25 U/L Normal 15-37 [facility] Comment on above: Performed By: #### L IPID, CMP #### [facility] [address] [address] [address] Aniceto Elizondo Bilirubin [Mass/Vol] 0.6 mg/dL Normal 0.2-1.0 [facility] Comment on above: Performed By: #### L IPID, CMP #### [facility] [address] [address] [address] Aniceto Elizondo Calcium [Mass/Vol] 9.1 mg/dL Normal 8.5-10.[address] [facility] Comment on above: Performed By: #### L IPID, CMP #### [facility] [address] [address] [address] Aniceto Elizondo Chloride [Moles/Vol] 99 mmol/L Normal 98-107 [facility] Comment on above: Performed By: #### L IPID, CMP #### [facility] [address] [address] [address] Aniceto Elizondo CO2 [Moles/Vol] 28.3 mmol/L Normal 21.0-32.0 [facility] Comment on above: Performed By: #### L IPID, CMP #### [facility] [address] [place] [address] Dr. Aniceto Elizondo Creatinine [Mass/Vol] 0.64 mg/dL Normal 0.55-1.02 [facility] Comment on above: Performed By: #### L IPID, CMP #### [facility] [address] [place] [address] Dr. Aniceto Elizondo EGFR-AF GUAMANIAN >60 Normal >=60 [facility] Comment on above: Performed By: #### L IPID, CMP #### [facility] [address] [place] [address] Dr. Aniceto Elizondo EGFR-NON AF GUAMANIAN >60 Normal >=60 [facility] Comment on above: Performed By: #### L IPID, CMP #### [facility] [address] [place] [address] Dr. Aniceto Elizondo Globulin (S) [Mass/Vol] 3.7 g/dL Normal [facility] Comment on above: Performed By: #### L IPID, CMP #### [facility] [address] [place] [address] Dr. Aniceto Elizondo Glucose [Mass/Vol] 102 mg/dL Normal 74-[address] [facility] Comment on above: Performed By: #### L IPID, CMP #### [facility] [address] [place] [address] Dr. Aniceto Elizondo Potassium [Moles/Vol] 4.5 mmol/L Normal 3.5-5.1 [facility] Comment on above: Performed By: #### L IPID, CMP #### [facility] [address] [address] [address] Aniceto Elizondo Protein [Mass/Vol] 7.5 g/dL Normal 6.4-8.[address] [facility] Comment on above: Performed By: #### L IPID, CMP #### [facility] [address] [place] [address] Dr. Aniceto Elizondo Sodium [Moles/Vol] 137 mmol/L Normal 136-[address] [facility] Comment on above: Performed By: #### L IPID, CMP #### [facility] [address] [address] [address] Aniceto Elizondo Urea nitrogen [Mass/Vol] 12.0 mg/dL Normal 7.0-18.0 [facility] Comment on above: Performed By: #### L IPID, CMP #### [facility] [address] [address] [address] Aniceto Elizondo Urea nitrogen/Creatinine [Mass ratio] 18.8 mg/mg Normal [facility] Comment on above: Performed By: #### L IPID, CMP #### [facility] [address] [place] [address] Dr. Aniceto Elizondo COVID-19 SOFIAOrdered By: Maritza Gutierrez on 01-29-2022 SARS-CoV+SARS-CoV-2 (COVID-19) Ag IA.rapid Ql (Resp) Negative Negative [facility] Comment on above: This is a duplicate Michelle SARS Antigen (DUNG) result to be used for statistical tracking purpose only. No Panel InformationOrdered By: Jordan Gutierrez on 01-29-2022 SARS Antigen (LFIA) [facility] HEMOGRAM AND PLATELon 2021 Hematocrit (Bld) [Volume fraction] 34.5 % Critically low 36.0-48.0 [facility] Comment on above: Performed By: #### H H #### [facility] [address] [place] [address] Dr. Aniceto Elizondo Hemoglobin (Bld) [Mass/Vol] 11.6 g/dL Critically low 12.0-16.0 [facility] Comment on above: Performed By: #### H H #### [facility] [address] [place] [address] Dr. Aniceto Elizondo MCH (RBC) [Entitic mass] 30.9 pg Normal 26.7-34.0 [facility] Comment on above: Performed By: #### H H #### [facility] [address] [address] [address] Aniceto Elizondo MCHC (RBC) [Mass/Vol] 33.6 g/dL Normal 29.9-35.2 [facility] Comment on above: Performed By: #### H H #### [facility] [address] [place] [address] Dr. Aniceto Elizondo MCV (RBC) [Entitic vol] 91.8 fL Normal 81.0-99.0 [facility] Comment on above: Performed By: #### H H #### [facility] [address] [place] [address] Dr. Aniceto Elizondo PLT 294 103/ul Normal 150-450 [facility] Comment on above: Performed By: #### H H #### [facility] [address] [place] [address] Dr. Aniceto Elizondo RBC 3.76 106/ul Critically low 4.20-5.40 [facility] Comment on above: Performed By: #### H H #### [facility] [address] [place] [address] Dr. Aniceto Elizondo WBC 6.0 103/ul Normal 4.0-11.0 [facility] Comment on above: Performed By: #### H H #### [facility] [address] [place] [address] Dr. Aniceto Elizondo MAGNESIUMon 11-21-2021 Magnesium [Mass/Vol] 2.2 mg/dL Normal 1.8-2.4 [facility] Comment on above: Performed By: #### U RAMON, RENAL, MG #### [facility] [address] [place] [address] Dr. Aniceto Elizondo RENAL FUNCTION PANELon 11-21 Albumin [Mass/Vol] 3.8 g/dL Normal 3.4-5.0 [facility] Comment on above: Performed By: #### U RAMON, RENAL, MG #### [facility] [address] [place] [address] Dr. Aniceto Elizondo Calcium [Mass/Vol] 8.9 mg/dL Normal 8.5-10.1 [facility] Comment on above: Performed By: #### U RAMON, RENAL, MG #### [facility] [address] [address] [address] Aniceto Elizondo Chloride [Moles/Vol] 97 mmol/L Critically low 98-107 [facility] Comment on above: Performed By: #### U RAMON, RENAL, MG #### [facility] [address] [address] [address] Aniceto Elizondo CO2 [Moles/Vol] 27.1 mmol/L Normal 21.0-32.0 [facility] Comment on above: Performed By: #### U RAMON, RENAL, MG #### [facility] [address] [address] [address] Aniceto Elizondo Creatinine [Mass/Vol] 0.66 mg/dL Normal 0.55-1.02 [facility] Comment on above: Performed By: #### U RAMON, RENAL, MG #### [facility] [address] [address] [address] Aniceto Elizondo EGFR-AF GUAMANIAN >60 Normal >=[address] [facility] Comment on above: Performed By: #### U RAMON, RENAL, MG #### [facility] [address] [address] [address] Aniceto Elizondo EGFR-NON AF GUAMANIAN >60 Normal >=60 [facility] Comment on above: Performed By: #### U RAMON, RENAL, MG #### [facility] [address] [address] [address] Aniceto Elizondo Glucose [Mass/Vol] 101 mg/dL Normal 74-[address] [facility] Comment on above: Performed By: #### U RAMON, RENAL, MG #### [facility] [address] [address] [address] Aniceto Elizondo Phosphate [Mass/Vol] 4.1 mg/dL Normal 2.6-4.7 [facility] Comment on above: Performed By: #### U RAMON, RENAL, MG #### [facility] [address] [address] [address] Aniceto Elizondo Potassium [Moles/Vol] 4.5 mmol/L Normal 3.5-5.1 [facility] Comment on above: Performed By: #### U RAMON, RENAL, MG #### [facility] [address] [address] [address] Aniceto Elizondo Sodium [Moles/Vol] 131 mmol/L Critically low 136-145 [facility] Comment on above: Performed By: #### U RAMON, RENAL, MG #### [facility] [address] [address] [address] Aniceto Elizondo Urea nitrogen [Mass/Vol] 16.0 mg/dL Normal 7.0-18.0 [facility] Comment on above: Performed By: #### U RAMON, RENAL, MG #### [facility] [address] [address] [address] Aniceto Elizondo UA RANDOM W/MICROSCOPICon BACTERIA NONE SEEN Normal NONE SEEN [facility] Comment on above: Performed By: #### U AMIC #### [facility] [address] [place] [address] Dr. Aniceto Elizondo Bilirubin Ql (U) Negative Normal NEGATIVE [facility] Comment on above: Performed By: #### U AMIC #### [facility] [address] [place] [address] Dr. Aniceto Elizondo CAST NONE SEEN Normal NONE SEEN [facility] Comment on above: Performed By: #### U AMIC #### [facility] [address] [place] [address] Dr. Aniceto Elizondo Clarity (U) CLEAR Normal CLEAR [facility] Comment on above: Performed By: #### U AMIC #### [facility] [address] [place] [address] Dr. Aniceto Elizondo Color (U) YELLOW Normal YELLOW [facility] Comment on above: Performed By: #### U AMIC #### [facility] [address] [place] [address] Dr. Aniceto Elizondo Crystals LM Nom (Urine sed) NONE SEEN Normal NONE SEEN [facility] Comment on above: Performed By: #### U AMIC #### [facility] [address] [place] [address] Dr. Aniceto Elizondo Epithelial cells LM Ql (Urine sed) FEW Abnormal NONE SEEN /RARE [facility] Comment on above: Performed By: #### U AMIC #### [facility] [address] [address] [address] Aniceto Elizondo Glucose Ql (U) Negative Normal NEGATIVE [facility] Comment on above: Performed By: #### U AMIC #### [facility] [address] [address] [address] Aniceto Elizondo Hemoglobin Ql (U) Negative Normal NEGATIVE [facility] Comment on above: Performed By: #### U AMIC #### [facility] [address] [address] [address] Aniceto Elizondo Ketones Ql (U) Negative Normal NEGATIVE [facility] Comment on above: Performed By: #### U AMIC #### [facility] [address] [address] [address] Aniceto Elizondo LEUKOCYTES Negative Normal NEGATIVE [facility] Comment on above: Performed By: #### U AMIC #### [facility] [address] [address] [address] Aniceto Elizondo MUCOUS NONE SEEN Normal NONE SEEN [facility] Comment on above: Performed By: #### U AMIC #### [facility] [address] [address] [address] Aniceto Elizondo Nitrite Ql (U) Negative Normal NEGATIVE [facility] Comment on above: Performed By: #### U AMIC #### [facility] [address] [address] [address] Aniceto Elizondo pH (U) 7.0 [pH] Normal 5-9 [facility] Comment on above: Performed By: #### U AMIC #### [facility] [address] [address] [address] Aniceto Elizondo RBC NONE SEEN Abnormal 0-2 [facility] Comment on above: Performed By: #### U AMIC #### [facility] [address] [place] [address] Dr. Aniceto Elizondo SPEC GRAVITY <=1.005 Abnormal 1.005-<=1.02 5 [facility] Comment on above: Performed By: #### U AMIC #### [facility] [address] [address] [address] Aniceto Elizondo UA PROTEIN Negative Normal NEGATIVE/ TRACE [facility] Comment on above: Performed By: #### U AMIC #### [facility] [address] [address] [address] Aniceto Elizondo Urobilinogen Qn (U) 0.2 {Ada'U}/dL Normal 0.2 - 1. 0 [facility] Comment on above: Performed By: #### U AMIC #### [facility] [address] [address] [address] Aniceto Elizondo WBC NONE SEEN Normal NONE SEEN [facility] Comment on above: Performed By: #### U AMIC #### [facility] [address] [place] [address] Dr. Aniceto Elizondo URIC ACID SERUMon 11-21-2021 Urate [Mass/Vol] 3.4 mg/dL Normal 2.6-6.0 [facility] Comment on above: Performed By: #### U RAMON, RENAL, MG #### [facility] [address] [place] [address] Dr. Aniceto Elizondo URINE T PROTEIN CREAT RATIOo n 11-21-2021 UR PROT CREAT RAT 0.40 Normal [facility] Comment on above: Performed By: #### U RTPCR #### [facility] [address] [place] [address] Dr. Aniceto Elizondo UR TOTAL PROTEIN <6.0 Normal <=12.[address] [facility] Comment on above: Performed By: #### U RTPCR #### [facility] [address] [address] [address] Aniceto Elizondo URINE CREAT 14.89 mg/dL Critically low 20.00-300.[address] [facility] Comment on above: Performed By: #### U RTPCR #### [facility] [address] [place] [address] Dr. Aniceto Elizondo VITAMIN D 25 OHon 11-21-2021 VIT D 25-OH 50.4 ng/mL Normal [facility] Comment on above: Performed By: #### V ITAD #### [facility] [address] [address] [address] Aniceto Elizondo VIT D RANGES SEE BELOW Normal [facility] Comment on above: Result Comment: <20 ng/mL Vit D deficient 20 - <30 ng/mL Vit D insufficient 30 - 100 ng/mL Vit D sufficient >100 ng/mL Potential Toxicity Performed By: #### V ITAD #### [facility] [address] [address] [address] Aniceto Elizondo CNOVon 05-03-2021 CNOV Office Visit (VASSMN ) ZEYNEP ABBASI ([id number]) 1950 F Date Time Provider Department 05/03/21 11:30 AM JOSE G WELLS During your visit today, we recorded the following information about you: Pulse Blood pressure 83/minute 182/94 Jose G Wells MD 05/04/2021 10:18 AM Unsigned Director Of Cath Lab NAME: ZEYNEP ABBASI CLINIC NO: [id number] DATE OF SERVICE: 05/03/2021 DATE OF : 1950 She is here to see me in follow-up for a left renal artery stenosis. Her blood pressure is still controlled on 100 mg of Losartan with no other medications. Today, her blood pressure was a little bit high when she saw me and it was 182/94, but it has been better in the past. She has had an ultrasound done at [facility] that was done in February which still showed a unilateral renal artery stenosis without any loss of renal mass. Her blood pressure now remains well controlled three years after the original finding of unilateral renal artery hypertension. Impression/Plan: At this point, without any worsening of her blood pressure, she should not need it checked it again. If she gets to the point where she is on three or more medications to help control her blood pressure, I would recommend checking another renal artery duplex. Otherwise, I would have her continue to follow-up with Dr. Castañdea to try and keep her blood pressure at a goal of less than 140. Jose G Wells M.D. SPL/089 Audio #: [id number] Date Dictated: 04/19/2021 23:17:18 Date Typed: 05/03/2021 14:30:58 Date Revised: 05/03/2021 16:03:18 Jose G Wells MD 05/03/2021 11:53 AM Signed Here for f/u of unilateral renal artery stenosis with well-controlled hypertension Heart [facility] V[facility] Thor[facility] [place] DEPARTMENT OF VASCULAR SURGERY OUTPATIENT VISIT DATE May 03, 2021 OUTPATIENT VISIT TYPE ESTABLISHED SERVICE DATE: 05/03/2021 SERVICE TIME: 11:20 AM PRIMARY CARE PHYSICIAN: Hudson Castañeda MD HISTORY OF PRESENT ILLNESS: Ms. Abbasi is a 70 year old female who presents today for a vascular surgery follow-up visit. PAST MEDICAL HISTORY Diagnosis Date - Allergy seasonal - DDD (degenerative disc disease), cervical - GERD (gastroesophageal reflux disease) on nexium - HTN (hypertension) - Hyperlipidemia - Osteoarthritis - Renal artery stenosis (HCC) - Rheumatoid arthritis (HCC) - Sleep apnea - Vertigo PAST SURGICAL HISTORY Procedure Laterality Date - PAST SURGICAL HISTORY OF foot surgery x3 - TONSILLECTOMY HX at 5 year old SOCIAL HISTORY Social History Tobacco Use - Smoking status: Former Smoker Packs/day: 1.00 Years: 28.00 Pack years: 28.00 Types: Cigarettes Quit date: 02/04/1997 Years since quittin.2 - Smokeless tobacco: Never Used Substance Use Topics - Alcohol use: Yes Comment: Once Or Twice A Month - Drug use: Not on file MEDICATIONS: cyclobenzaprine (FLEXERIL) 10 mg tablet Take by mouth twice daily as needed. GABAPENTIN ORAL Take 100 mg by mouth as needed. losartan (COZAAR) 100 mg tablet Take 100 mg by mouth once daily. TURMERIC ORAL Take by mouth. Lactobacillus acidophilus (PROBIOTIC ORAL) Take by mouth once daily. estradiol (ESTRACE) 0.01 % (0.1 mg/gram) vaginal cream Use vaginally one time a week. Ascorbate Calcium-Bioflavonoid (JOSE MANUEL C WITH BIOFLAVONOIDS) 500-200 mg tab Take 500 mg by mouth once daily. aspirin, enteric coated (ASPIRIN, ENTERIC COATED) 81 mg EC tablet Take 81 mg by mouth two times a week. atorvastatin (LIPITOR) 20 mg tablet Take 20 mg by mouth once daily. fexofenadine (SASHA) 180 mg tablet Take 180 mg by mouth once daily. Magnesium Oxide 500 mg tab Take by mouth as directed. esomeprazole 40 mg SolR 40 mg 20 mg once daily. PO zolpidem 10 mg Tab Take by mouth at bedtime as needed. fluticasone 50 mcg/actuation nasal spray Use 2 Sprays in each nostril once daily. multivitamin (MULTIPLE VITAMIN) tablet Take 1 tablet by mouth once daily. Lysine 1,000 mg Tab Take by mouth once daily. cholecalciferol, vitamin D3, (VITAMIN D3) 4,000 unit Cap Take by mouth once daily. POTASSIUM-99 ORAL Take by mouth once daily. krill oil 500 mg cap Take by mouth once daily. ALLERGIES: ALLERGIES No Known Allergies Diagnostic tests reviewed for today's visit: Most recent imaging report IMPRESSION and PLAN: This office note has been dictated. STAFF PHYSICIAN: Jose G Wells MD DATE OF SERVICE: May 03, 2021 TIME OF SERVICE: 11:20 AM Medical Decision Making Director Of Cath Lab: Transcribed Clinic Note (christen) ID: [id number] Author: JOSE G WELLS * * * This document has not been signed * * * * * * DRAFT COPY. THIS DOCUMENT IS NOT AVAILABLE FOR PATIENT CARE * * * Document text: NAME: ZEYNEP ABBASI CLINIC NO: [id number] DATE OF SERVICE: 05/03/2021 DATE OF : 1950 She is here to see me in follow-up for a le (more content not included)... [facility] [facility]) ZEYNEP ABBASI ([id number]) 1950 F Date Time Provider Department 02/22/21 [facility] During your visit today, we recorded the following information about you: Shirley Shay 02/22/2021 2:43 PM Signed Reason for call: Mrs Abbasi called and she would like to schedule a follow up appointment with DR Wells , last seen 04/26/2019. Home and cell number : [phone] Diagnosis Renal Artery stenosis Kind Regards, Shirley Shah Coord 02/23/2021 5:13 PM Signed Zeynep Abbasi appointments have been scheduled accordingly. Patient has been notified via telephone and MyChart and appointment schedule sent via US Mail Patient will also be hand carrying CD with images. Maribeth Shah Coord February 23, 2021 5:13 PM Allergies As of Date: 02/22/2021 (No Known Allergies) Date Reviewed: 04/26/2019 Reviewed by: Natalee Alfaro - Fully Assessed Reason for Visit: Appointment [186] Prescriptions as of 02/23/2021 - Minocycline HCl 100 mg tablet Take 100 mg by mouth twice daily. - losartan (COZAAR) 100 mg tablet Take 100 mg by mouth once daily. - TURMERIC ORAL Take by mouth. - Lactobacillus acidophilus (PROBIOTIC ORAL) Take by mouth once daily. - estradiol (ESTRACE) 0.01 % (0.1 mg/gram) vaginal cream Use vaginally one time a week. - Ascorbate Calcium-Bioflavonoid (JOSE MANUEL C WITH BIOFLAVONOIDS) 500-200 mg tab Take 500 mg by mouth once daily. - aspirin, enteric coated (ASPIRIN, ENTERIC COATED) 81 mg EC tablet Take 81 mg by mouth two times a week. - atorvastatin (LIPITOR) 20 mg tablet Take 20 mg by mouth once daily. - cloNIDine HCl (CATAPRES) 0.1 mg tablet once daily. - fexofenadine (SASHA) 180 mg tablet Take 180 mg by mouth once daily. - Magnesium Oxide 500 mg tab Take by mouth as directed. - POTASSIUM-99 ORAL Take by mouth once daily. - krill oil 500 mg cap Take by mouth once daily. - esomeprazole 40 mg SolR 40 mg Inject 40 mg intravenously once daily. - zolpidem 10 mg Tab Take by mouth at bedtime as needed. - fluticasone 50 mcg/actuation nasal spray Use 2 Sprays in each nostril once daily. - multivitamin (MULTIPLE VITAMIN) tablet Take 1 tablet by mouth once daily. - Lysine 1,000 mg Tab Take by mouth once daily. - cholecalciferol, vitamin D3, (VITAMIN D3) 4,000 unit Cap Take by mouth once daily. Problem List As Of Date 02/22/2021 Noted Resolved HTN (hypertension) [I10] 02/23/2018 Renal artery stenosis (HCC) [I70.1] 02/23/2018 Mixed hyperlipidemia [E78.2] 02/23/2018 Encounter Status:Closed by SHIRLEY SHAY on 02/22/21 Normal [facility] Albumin [Mass/volume] in Ser um or Plasmaon 07-05-2020 Albumin [Mass/Vol] 4.2 g/dL 3.2-5.5 [facility] Automated basophil %on 07-05 Basophils/100 WBC (Bld) 0.6 % F [facility] Automated basophil counton 1 Basophils (Bld) [#/Vol] 0.0 10*3/uL 0.0-0.2 [facility] Automated blood lymphocyte c ount (number/volume)on 07-05-2020 Lymphocytes (Bld) [#/Vol] 1.2 10*3/uL 1.00-4.8 [facility] Automated blood lymphocyte c ount as percentage of total leukocyteson 07-05-2020 Lymphocytes/100 WBC (Bld) 16.6 % [facility] Automated blood monocyte cou nton 07-05-2020 Monocytes (Bld) [#/Vol] 0.4 10*3/uL 0.0-0.8 [facility] Automated blood platelet cou nt (count/volume)on 07-05-2020 Platelets (Bld) [#/Vol] 282 10*3/uL 150-450 [facility] Automated blood platelet elpidio n volume measurementon 07-05-2020 Platelet mean volume (Bld) [Entitic vol] 8.7 fL 6.3-10.7 [facility] Automated eosinophil %on Eosinophils/100 WBC (Bld) 0.4 % [facility] Automated eosinophil counton 07-05-2020 Eosinophils (Bld) [#/Vol] 0.0 10*3/uL 0.0-0.45 [facility] Automated erythrocyte distri bution width ratioon 07-05-2020 Erythrocyte distribution width (RBC) [Ratio] 13.7 % 11.9-15.3 [facility] Automated erythrocyte mean c orpuscular hemoglobin (mass per erythrocyte)on 07-05-2020 MCH (RBC) [Entitic mass] 30.2 pg 24.7-34.3 [facility] Automated erythrocyte mean c orpuscular hemoglobin concentration measurement (mass/volon 07-05-2020 MCHC (RBC) [Mass/Vol] 33.1 g/dL 32.0-35.0 [facility] Automated erythrocyte mean c orpuscular volumeon 07-05-2020 MCV (RBC) [Entitic vol] 91.1 fL 80-100 [facility] Automated monocyte %on 07-05 Monocytes/100 WBC (Bld) 5.3 % [facility] Automated neutrophil %on Neutrophils/100 WBC (Bld) 77.1 % [facility] Blood erythrocytes automated count (number/volume)on 07-05-2020 RBC (Bld) [#/Vol] 3.94 10*6/uL 3.60-5.00 [facility] Blood hemoglobin measurement (mass/volume)on 07-05-2020 Hemoglobin (Bld) [Mass/Vol] 11.9 g/dL 11.8-15.4 [facility] Blood leukocytes automated c ount (number/volume)on 07-05-2020 WBC (Bld) [#/Vol] 7.1 10*3/uL 4.5-11.0 [facility] Blood neutrophil count by au tomated method (number/volume)on 07-05-2020 Neutrophils (Bld) [#/Vol] 5.4 10*3/uL 1.8-7.7 [facility] Cholesterol [Mass/volume] in Serum or Plasmaon 07-05-2020 Cholesterol [Mass/Vol] 173 mg/dL 140-200 [facility] Comment on above: Chol less than 200 m g/dl low riskChol 201-239 mg/dl borderline riskChol 240 mg/dl and greater high risk Cholesterol in LDL [Mass/vol ume] in Serum or Plasma by calculationon 07-05-2020 Cholesterol in LDL [Mass/Vol] 93 mg/dL 0-100 [facility] Comment on above: LDL ATP III CLASSIFI CATIONLDL less than 100 mg/dL OptimalLDL 100-129 mg/dL Near or above optimalLDL 130-159 mg/dL Borderline highLDL 160-189 mg/dL HighLDL greater than 189 mg/dL Very high Cholesterol in VLDL [Mass/vo lume] in Serum or Plasma by calculationon 07-05-2020 Cholesterol in VLDL [Mass/Vol] 17 mg/dL [facility] Erythrocyte sedimentation ra te by Photometric methodon 07-05-2020 ESR Photometric method (Bld) [Velocity] 19 mm/hr 0-29 [facility] Estimated glomerular filtrat ion rate (GFR) non- Americanon 07-05-2020 GFR/1.73 sq M predicted among non-blacks MDRD (S/P/Bld) [Vol rate/Area] mL/min/{1.73_m2} [facility] Hematocrit [Volume Fraction] of Blood by Automated counton 07-05-2020 Hematocrit (Bld) [Volume fraction] 35.9 % 34.0-46.4 [facility] Otheron 07-05-2020 GFR/1.73 sq M.predicted MDRD (S/P/Bld) [Vol rate/Area] mL/min/{1.73_m2} [facility] Comment on above: GFR estimated refere nce range: According to KDOQI guidelines, <60 ml/min/1.73m2 is sufficient to diagnose a patient with chronic kidney disease. Nucleated RBC/100 WBC (Bld) [Ratio] 0.0 % 0-0.5 [facility] Creatinine Clearance (Chem N/A [facility] Protein [Mass/volume] in Ser um or Plasmaon 07-05-2020 Protein [Mass/Vol] 7.2 g/dL 6.1-7.9 [facility] Serum globulin measurement b y calculation (mass/volume)on 07-05-2020 Globulin (S) [Mass/Vol] 3.0 g/dL [facility] Serum or plasma alanine craig otransferase measurement without P-5'-P (enzymatic activion 07-05-2020 ALT No additional P-5'-P [Catalytic activity/Vol] 23 U/L [facility] Serum or plasma albumin/glob ulin mass ratioon 07-05-2020 Albumin/Globulin [Mass ratio] 1.4 {ratio} [facility] Serum or plasma alkaline lakisha sphatase measurement (enzymatic activity/volume)on 07-05-2020 ALP [Catalytic activity/Vol] 63 U/L 32-92 [facility] Serum or plasma aspartate am inotransferase measurement (enzymatic activity/volume)on 07-05-2020 AST [Catalytic activity/Vol] 27 U/L 10 [facility] Serum or plasma calcium yvonne urement (mass/volume)on 07-05-2020 Calcium [Mass/Vol] 9.4 mg/dL 8.2-10.2 [facility] Serum or plasma chloride elpidio surement (moles/volume)on 07-05-2020 Chloride [Moles/Vol] 96 mmol/L 95-114 [facility] Serum or plasma creatinine m easurement with calculation of estimated glomerular filtron 07-05-2020 Creatinine [Mass/Vol] 0.64 mg/dL 0.44-1.03 [facility] Serum or plasma glucose yvonne urement (mass/volume)on 07-05-2020 Glucose [Mass/Vol] 114 mg/dL 70-100 [facility] Comment on above: ADA recommended refe rence rangeRandom Glucose Reference Range is dependent on time and content of last meal. Glucose of more than 200 mg/dL in a nonstressed, ambulatory subject supports the diagnosis of Diabetes Mellitus. Serum or plasma high density lipoprotein (HDL) cholesterol measurementon 07-05-2020 Cholesterol in HDL [Mass/Vol] 63 mg/dL 35-85 [facility] Comment on above: HDL CHOL ATP-III CLA SSIFICATION Cardiovascular RiskHDL > or equal to 60 mg/dL LOWHDL < 40 mg/dL HIGH Serum or plasma potassium me asurement (moles/volume)on 07-05-2020 Potassium [Moles/Vol] 3.9 mmol/L 3.5-5.1 [facility] Serum or plasma sodium measu rement (moles/volume)on 07-05-2020 Sodium [Moles/Vol] 131 mmol/L 136-146 [facility] Serum or plasma total biliru bin measurement (mass/volume)on 07-05-2020 Bilirubin [Mass/Vol] 0.6 mg/dL 0.3-1.2 [facility] Serum or plasma total carbon dioxide measurement (moles/volume)on 07-05-2020 CO2 [Moles/Vol] 24.3 mmol/L 22.0-30.0 [facility] Serum or plasma total choles terol/high density lipoprotein (HDL) cholesterol mass ashok 07-05-2020 Cholesterol.total/Joselyn sterol in HDL [Mass ratio] 2.7 {ratio} [facility] Serum or plasma urea nitroge n measurement (mass/volume)on 07-05-2020 Urea nitrogen [Mass/Vol] 15 mg/dL - [facility] Triglyceride [Mass/volume] i n Serum or Plasmaon 07-05-2020 Triglyceride [Mass/Vol] 86 mg/dL 35-149 [facility] Comment on above: TRIG ATP III CLASSIF ICATIONTRIG less than 150 mg/dL NormalTRIG 150-199 mg/dL Borderline highTRIG 200-500 mg/dL High TRIG greater than 500 mg/dL Very highStandard traceable to the Center for Disease Conrtrol and Prevention (CDC) test method. Coding Summary.on 06-19-2018 Coding Summary. 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, female FINAL DX: PRINCIPAL: N35.028 Other post-traumatic urethral stricture, female SECONDARY: N39.3 Stress incontinence (female) (male) R31.21 Asymptomatic microscopic hematuria R35.0 Frequency of micturition R39.14 Feeling of incomplete bladder emptying R39.15 Urgency of urination E78.5 Hyperlipidemia, unspecified I10 Essential (primary) hypertension M19.90 Unspecified osteoarthritis, unspecified site Z87.440 Personal history of urinary (tract) infections Z87.891 Personal history of nicotine dependence PYMT PROC APC STAT DESCRIPTION DOCTOR NAME DATE NOTE: The code number assigned matches the documented diagnosis and / or procedure in the patient's chart. However, the narrative phrase printed from the coding software may appear abbreviated, or result in slightly different terminology. Revised Coded By: Marychuy Jain Revised Date Saved: 06/19/2018 01:41 pm Normal [facility] Main OR Intraoperative Recor leela 06-18-2018 Main OR Intraoperative Record IntraOp Document Type FTURO Summary Primary Physician: Khadar Begum Jr., MD Finalized Date/Time: 06/18/18 14:22:44 Pt. Name: ZEYNEP ABBASI Xena/Sex: 1950 Female Med Rec #: [id number] Physician: Khadar Begum Jr., MD Financial #: [id number] Pt. Type: O Room/Bed: / Admit/Disch: 06/18/18 13:04:11 - Institution: Case Times FTURO Entry 1 Patient Times In Room 06/18/18 14:16:00 Out Room 06/18/18 14:22:00 Procedure Times Start 06/18/18 14:18:00 Stop 06/18/18 14:20:00 Anesthesia Times Last Modified By: Barrera SIMON, RN, Heather 06/18/18 14:20:03 Case Attendance FTURO Entry 1 Entry 2 Entry 3 Case Attendee Kel Lehman MD, Khadar SIMON, RN, [place] [facility], Latasha Romero Role Performed Surgeon - Primary Chief Media Officer - Primary Scrub - Primary Time In 06/18/18 14:16:00 06/18/18 14:16:00 06/18/18 14:16:00 Time Out 06/18/18 14:22:00 06/18/18 14:22:00 06/18/18 14:22:00 Procedure CYSTOSCOPY LOCAL WITH CYSTOSCOPY LOCAL WITH CYSTOSCOPY LOCAL WITH URETHRAL DILATION(.) URETHRAL DILATION(.) URETHRAL DILATION(.) Comments Last Modified By: Barrera SIMON, RN, Barrera SIMON, RN, Barrera SIMON, RN, Heather 06/18/18 14:20:05 Heather 06/18/18 14:20:05 Heather 06/18/18 14:20:05 Surgical Procedures FTURO Entry 1 Procedure Description Procedure CYSTOSCOPY LOCAL WITH Modifiers . URETHRAL DILATION Surgeon Description CYSTOSCOPY W/UD Primary Procedure Yes Primary Surgeon Kel Lehman MD, Khadar Mcmillan Start 06/18/18 14:18:00 Stop 06/18/18 14:20:00 Anesthesia Type Local Surgical Service Urology Wound Class 2 - Clean-Contaminated Last Modified By: Barrera SIMON RN, Kelly 06/18/18 14:20:08 General Case Data FTURO Pre-Care Text: Classifies surgical wound, implements aseptic technique, initiates traffic control Entry 1 Case Information OR URO 1 FT Case Level None Wound Class 2 - Clean-Contaminated Specialty Urology Preop Diagnosis URINARY INCONTINENCE, Postop Same As Preop Yes FREQUENCY, URGENCY Postop Diagnosis URINARY INCONTINENCE, Outcomes Met? Yes FREQUENCY, URGENCY Last Modified By: Barrera SIMON RN, Kelly 06/18/18 13:17:22 Post-Care Text: The patient is free from signs and symptoms of infection EU IntraOp - FTURO Pre-Care Text: Implements protective measures prior to operative or invasive procedure, confirms identity before the operative or invasive procedure, verifies operative procedure, surgical site, and laterality Entry 1 EU Perioperative Protocols Procedure(s) CYSTOSCOPY LOCAL WITH Patient Identity Birthday, ID Band URETHRAL DILATION(.) Verified (select at Check, Patient least 2): Participation Consents / H and P HandP, Surgery/Procedure Operative Site N/A Verified Consent Marking Verified Surgical Site Yes Laterality Verified n/a Verified Procedure Verified Yes Correct Patient Yes Position Verified Availability Equipment, Medication Time Out Kel Lehman MD, Khadar Mcmillan, Verified (If Participants Barrera SIMON RN, Applicable) Mallory Romero CST, Gwen E Time Out Complete 06/18/18 14:17:00 Allergies Reviewed? Yes Allergies Reviewed Self/Patient With Body Position Frog Legged Prep Area perinium Prep Agents Betadine Solution Skin. Condition Unable to Visualize Additional None Specimens Collected Vitals - EU Blood Pressure 158/82 Pulse 69 bpm Respirations 16 br/min SPO2 96 % EBL 0 IandO - EU Total Intake 0 mL Total Output 0 mL Outcomes Met? Yes Last Modified By: Barrera SIMON RN, Kelly 06/18/18 14:22:36 Post-Care Text: The patient is free from signs and symptoms of injury caused by extraneous objects Case Comments Finalized By: Barrera SIMON RN, Kelly Document Signatures Signed By: Barrera SIMON RN, Kelly 06/18/18 14:22 Barrera SIMON RN, Heather 06/18/18 14:22 Normal [facility] Main OR Preoperative Recordo n 06-18-2018 Main OR Preoperative Record Holding Area Document Type FTURO Summary Primary Physician: Khadar Begum Jr., MD Finalized Date/Time: 06/18/18 13:22:18 Pt. Name: ZEYNEP ABBASI /Sex: 1950 Female Med Rec #: [id number] Physician: Khadar Begum Jr., MD Financial #: [id number] Pt. Type: O Room/Bed: / Admit/Disch: 06/18/18 13:04:11 - Institution: Case Times Holding FTURO Pre-Care Text: Verifies consent for planned procedure, identifies individual values and wishes concerning care, includes family members in perioperative teaching Secures patient's records' belongings, and valuables, maintains patient's dignity and privacy, and maintains patient confidentiality Entry 1 In Holding 06/18/18 13:19:00 Outcomes Met? Yes Last Modified By: Maryan Cortes LPN 06/18/18 13:19:11 Post-Care Text: The patient participates in decisions affecting his or her perioperative plan of care The patient's right to privacy is maintained Surgery Checklist FTURO Entry 1 Patient Birthday, ID Band Procedure History and Physical, Identification: Check, Patient Verification: Surgical Consent, With Participation Patient NPO after Midnight: n/a Personal Items: Glasses Personal Items rings x 4, earrings x 2 Complaints of Pain: No Comment: pr Skin Integrity Intact, [place], Warm, & Dry Vitals - EU Blood Pressure 155/79 Pulse 78 bpm Respirations 18 br/min SPO2 Last Modified By: Maryan Cortes LPN 06/18/18 13:22:13 Finalized By: Maryan Cortes LPN Document Signatures Signed By: Maryan Cortes LPN 06/18/18 13:22 Normal [facility] Operative Reporton 8 Operative Report Patient: YVAN ABBASI Age: 68 years Sex: Female : 1950 Associated Diagnoses: None Author: Khadar Begum Jr., MD Procedure Operative Information Details: Date/ Time: 06/18/18 14:22:00. 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 Post-Op Dx: Same. Anesthesia Type: Local. Procedure: Local Cystoscopy with Urethral Dilation. Complications: None. Risks/Benefits/Inform ed Consent: Surgical risks, benefits, details of the procedure have been explained to the patient, Full informed consent has been obtained. Intraoperative Information Prepped: Patient is brought back to the endoscopy suite, Patient is placed in modified dorso/lithotomy position, Patient prepped in the usual fashion with Betadine solution, 2% Xylocaine Jelly is placed per Urethra, After waiting several minutes the Cystoscope is introduced. The Urethra is: Tight. The Bladder is: Normal, Trabeculated None (0). The ureteral orifices: Show efflux of clear urine. The Urethra was dilated to: 26 Armenian w/ sounds. Devices Implanted: None. Removal: Cystoscope is removed, The patient tolerated it well. Postoperative Information Discharge: Patient is discharged home with antibiotic coverage, Follow up arranged. Normal [facility] Comment on above: Result Comment: Elec tronically Signed By: Khadar Begum Jr., MD\.br\Date and Time Signed: 06/18/18 14:22 EST Vital Signs Date Time Vital Sign Value Performing Clinician Facility 11-13-2023 11:00-0400 Body height 175.26 cm MD Hudson Castañeda Work Phone: [facility] 11-13-2023 11:00-0400 Body mass index (BMI) [Ratio] 25.5 kg/m2 MD Hudson Castañeda Work Phone: [facility] 11-13-2023 11:00-0400 Body temperature 96.5 [degF] MD Hudson Castañeda Work Phone: [facility] 11-13-2023 11:00-0400 Body weight 78.58 kg MD Hudson Castañeda Work Phone: [facility] 11-13-2023 11:00-0400 Diastolic blood pressure 70 mm[Hg] MD Hudson Castañeda Work Phone: [facility] 11-13-2023 11:00-0400 Heart rate 72 /min MD Hudson Castañeda Work Phone: [facility] 11-13-2023 11:00-0400 Respiratory rate 16 /min MD Hudson Castañeda Work Phone: [facility] 11-13-2023 11:00-0400 SaO2% (BldA) [Mass fraction] 98 % MD Hudson Castañeda Work Phone: [facility] 11-13-2023 11:00-0400 Systolic blood pressure 130 mm[Hg] MD Hudson Castañeda Work Phone: [facility] 12-05-2022 11:00-0400 Body height 175.26 cm Gonsalo You Other [facility] Other 12-05-2022 11:00-0400 Body mass index (BMI) [Ratio] 25.75 kg/m2 Gonsalo You Other [facility] Other 12-05-2022 11:00-0400 Body temperature 96.6 [degF] Gonsalo You Other [facility] Other 12-05-2022 11:00-0400 Body weight 79.11 kg Gonsalo You Other [facility] Other 12-05-2022 11:00-0400 Diastolic blood pressure 72 mm[Hg] Gonsalo You Other [facility] Other 12-05-2022 11:00-0400 Respiratory rate 18 /min Gonsalo You Other [facility] Other 12-05-2022 11:00-0400 SaO2% (BldA) [Mass fraction] 98 % Gonsalo You Other [facility] Other 12-05-2022 11:00-0400 Systolic blood pressure 139 mm[Hg] Gonsalo You Other [facility] Other 01-31-2022 09:30-0400 Diastolic blood pressure 78 mm[Hg] MD Hudson Castañeda Work Phone: [facility] 01-31-2022 09:30-0400 Heart rate 69 /min MD Hudson Castañeda Work Phone: [facility] 01-31-2022 09:30-0400 Respiratory rate 16 /min MD Hudson Castañeda Work Phone: [facility] 01-31-2022 09:30-0400 SaO2% (BldA) [Mass fraction] 99 % MD Hudson Castañeda Work Phone: [facility] 01-31-2022 09:30-0400 Systolic blood pressure 124 mm[Hg] MD Hudson Castañeda Work Phone: [facility] 01-31-2022 08:00-0400 Body height 175.26 cm MD Hudson Castañeda Work Phone: [facility] 01-31-2022 08:00-0400 Body temperature 98.5 [degF] MD Hudson Castañeda Work Phone: [facility] 01-31-2022 08:00-0400 Body weight 74.84 kg MD Hudson Castañeda Work Phone: [facility] 11-29-2021 11:20-0400 Body height 175.26 cm Gonsalo You Other [email or web address] Other 11-29-2021 11:20-0400 Body mass index (BMI) [Ratio] 26.25 kg/m2 Gonsalo You Other [facility] Other 11-29-2021 11:20-0400 Body temperature 96.5 [degF] Gonsalo You Other [facility] Other 11-29-2021 11:20-0400 Body weight 80.65 kg Gonsalo You Other [facility] Other 11-29-2021 11:20-0400 Diastolic blood pressure 90 mm[Hg] Gonsalo You Other [facility] Other 11-29-2021 11:20-0400 Respiratory rate 18 /min Gonsalo You Other [facility] Other 11-29-2021 11:20-0400 SaO2% (BldA) [Mass fraction] 95 % Gonsalo You Other [facility] Other 11-29-2021 11:20-0400 Systolic blood pressure 160 mm[Hg] Gonsalo You Other [facility] Other Encounters Encounter Date Encounter Type Care Provider Facility Start: 11-25-2023 End: 11-26-2023 ambulatory [facility] Start: 11-13-2023 End: 11-13-2023 ambulatory MD Hudson Castañeda Work Phone: [facility] Work Phone: Start: 11-13-2023 End: 11-13-2023 Patient encounter procedure MD Hudson Castañeda Work Phone: [facility] Jose Luis Work Phone: Start: 11-11-2023 End: 11-11-2023 ambulatory OLIVE DODSON Not Available Start: 11-03-2023 End: 11-03-2023 ambulatory [facility] Start: 10-27-2023 End: 10-27-2023 ambulatory Tamera Randall Facility:[facility] Start: 10-27-2023 End: 10-27-2023 ambulatory MD Hudson Castañeda Work Phone: [facility] Work Phone: Start: 10-27-2023 End: 10-27-2023 Patient encounter procedure MD Hudson Castañeda Work Phone: [facility] [address] Work Phone: Start: 10-17-2023 End: 10-18-2023 ambulatory [facility] Start: 05-08-2023 End: 05-08-2023 ambulatory Gonsalo You Other [facility] Other Start: 05-08-2023 Telephone encounter Gonsalo Birchr [facility] Start: 04-29-2023 End: 04-29-2023 ambulatory Hudson Castañeda Facility:[facility] Start: 04-29-2023 End: 04-29-2023 ambulatory MD Hudson Castañeda Work Phone: [facility] Work Phone: Start: 04-29-2023 End: 04-29-2023 Patient encounter procedure MD Hudson Castañeda Work Phone: [facility] [address] Work Phone: Start: 01-08-2023 End: 01-08-2023 ambulatory José Luis Brennan Facility:[facility] Start: 01-08-2023 End: 01-08-2023 ambulatory MD Hudson Castañeda Work Phone: [facility] Work Phone: Start: 01-08-2023 End: 01-08-2023 Patient encounter procedure MD Hudson Castañeda Work Phone: [facility] Work Phone: Start: 12-05-2022 End: 12-05-2022 ambulatory Gonsalo You Other [facility] Transfer To Other Start: 12-05-2022 Office outpatient visit 25 minutes Gonsalo You [facility] Jose Luis Start: 10-29-2022 End: 10-29-2022 ambulatory Torie Stafford Facility:[facility] Start: 10-29-2022 End: 10-29-2022 ambulatory MD Hudson Castañeda Work Phone: [facility] Work Phone: Start: 10-29-2022 End: 10-29-2022 Patient encounter procedure MD Hudson Castañeda Work Phone: [facility] [address] Work Phone: Start: 10-25-2022 End: 10-25-2022 Patient encounter procedure MD Hudson Castañeda Work Phone: [facility] Start: 07-15-2022 End: 07-16-[address] TAMERA RANDALL Facility: Start: 05-20-2022 End: 05-20-2022 ambulatory Gonsalo You Other [facility] Other Start: 05-20-2022 Telephone encounter Gonsalo You [facility] Start: 04-25-2022 End: 04-25-2022 ambulatory MD Hudson Castañeda Work Phone: [facility] Work Phone: Start: 04-25-2022 End: 04-25-2022 Patient encounter procedure MD Hudson Castañeda Work Phone: [facility] [address] Start: 02-26-2022 End: 02-26-[address] HUDSON CASTAÑEDA Facility:[facility] Start: 02-11-2022 End: 02-12-[address] HUDSON CASTAÑEDA Facility:[facility] Start: 01-31-2022 End: 01-31-2022 Admission to same day surgery center MD Hudson Castañeda Work Phone: [facility] Start: 01-29-2022 End: 01-29-2022 Patient encounter procedure MD Hudson Castañeda Work Phone: [facility] Start: 01-08-2022 End: 01-08-2022 ambulatory Jordan Gutierrez Other [facility] Other Start: 01-08-2022 Telephone encounter Jordan CHAMORRO [employer] Start: 12-10-2021 End: 12-10-2021 Patient encounter procedure MD Hudson [facility] Start: 11-29-2021 End: 11-29-2021 ambulatory Gonsalo You Other [facility] Other Start: 11-29-2021 Office outpatient visit 15 minutes Gonsalo You [facility] Jose Luis Start: 11-21-2021 End: 11-22-2021 ambulatory GONSALO YOU Facility:[facility] Start: 07-28-2020 End: 07-28-2020 Patient encounter procedure Hudson Castañeda [facility] Start: 07-05-2020 End: 07-05-2020 Patient encounter procedure Hudson Castañeda -[facility] [address] Start: 06-18-2018 End: 06-19-2018 Patient encounter procedure Juan Shirley Facility:[facility] Procedures Date Procedure Procedure Detail Performing Clinician Start: 11-03-2023 Follow-up visit Follow-up PRICILLA PA Start: 01-08-2023 Screening mammograph y of bilateral breasts MD Hudson Castañeda Work Phone: Start: 10-29-2022 X-ray of left knee MD Charity Castañeda Work Phone: Start: 01-31-2022 Screening colonoscopy Aletha Castañeda Work Phone: Start: 12-10-2021 Screening mammograph y of bilateral breasts MD Hudson Castañeda Work Phone: Start: 07-28-2020 Dual energy X-ray ph oton absorptiometry Hudson Castañeda Start: 07-28-2020 Screening mammography Charity Castañeda SARS Antigen (LFIA) MD Travis Castañeda Work Phone: Plan of Treatment Date Care Activity Detail Author Start: 01-31-2022 [facility] Renal function 2000 panel - Serum or Plasma [facility] Immunizations Immunization Date Immunization Notes Care Provider Fa cilisiobhan 04-21-2021 COVID-19 mRNA Comirnatjustyn (Pfizer) MD Hudson Castañeda Work Phone: [facility] 08-26-2020 COVID-Daryn Goldman (Pfizer) MD Hudson Castañeda Work Phone: [facility] 08-05-2020 COVID-19 Daryn Tracey (Pfizer) MD Hudson Castañeda Work Phone: [facility] Payers Date Payer Category Payer Self-pay [id number] 2015 Medicare [id number] 2013 Unknown [id number] 1959 Medicare [id number] 1959 Unknown [id number] 1950 Unknown [id number] 2.16.84 [id number] 1950 Unknown [id number] 2.16.84 [id number] 1950 Unknown [id number] 2.16.84 [id number] 1950 Unknown [id number] 2.16.84 [id number] 1950 Unknown [id number] 2.16.84 0.1.238229.3.579.2.593 1950 Unknown [id number] 2.16.8 40.1.693343.3.579.2.1286 1950 Unknown [id number] 2.16.84 0.1.123168.3.579.2.1259 1950 Unknown [id number] 2.16.8 40.1.300003.3.579.2.1286 1950 Unknown [id number] 2.16.8 40.1.929518.3.579.2.1286 Unknown [id number] 2.16.8 40.1.251192.3.579.2.531 Unknown [id number] 2.16.8 40.1.036501.3.579.2.531 Unknown [id number] 2.16.8 40.1.732801.3.579.2.531 Unknown [id number] 2.16.8 [id number] Social History Date Type Detail Facility Tobacco smoking status [facility] Unknown if ever smoked [facility] Start: 1950 Sex Assigned At Female F [facility] Sex Assigned At Sex Assigned At Bir th [facility] Other Start: 01-31-2022 End: 11-13-2023 Tobacco smoking status [facility] Ex-smoker (finding) [facility] Goals Date Patient Goal Desired Activity /State Clinical Notes 05-03-2021 to 12-05-2022 Note Date & Type Note Facility 12-05-2022 Evaluation note Encounter Date Diagnosis Assessment Notes Dec, Renovascular hypertension (ICD-10 - I15.0) She has HTN with Renal artery stenoses. Continue Losartan 100 mg daily. Her blood pressure is well controlled at home but sometimes runs high in the office. I have advised her to monitor her blood pressure at home and call me if it is >140/90 mm Hg. Her Renin, Aldosterone, Serum Cortisol and metanephrine are unremarkable Dec, Renal artery stenosis (ICD-10 - I70.1) She has controlled blood pressure with stable renal function. She has no evidence of pulmonary edema. No need for surgical intervention. Dec, Dyslipidemia (ICD-10 - E78.5) Continue current dose of statins Dec, Rheumatoid arthritis, involving unspecified site, unspecified rheumatoid factor presence (ICD-10 - M06.9) Continue to follow with Dr. Randall Dec, Chronic hyponatremia (ICD-10 - E87.1) She has chronic hyponatremia likely due to the medication. Her serum sodium is within acceptable range. She has an appropriately high urine sodium and urine osmolality. Dec, Vitamin D deficiency (ICD-10 - E55.9) Her Vitamin D is normal . Continue Vit D Dec, Anemia of renal disease (ICD-10 - D63.1) Hb is within the goal. Will check Iron studies. [facility] Other 01-13-2023 NoteHISTORY: Knee pain TECHNIQUE: Duplex sonographic evaluation was performed of the right lower extremity. COMPARISON: None available FINDINGS: Duplex sonographic evaluation of the right lower extremity from the thigh to the knee shows normal phasic flow, augmentation, and compression of the deep veins. No soft tissue mass or fluid collection. Fluid collection in the popliteal fossa region measuring approximately 3.9 x 1.9 x 2.5 cm most likely a Sherwood's cyst. Suprapatellar joint effusion is identified and measures 3.3 x 1.6 x 3.6 cm. IMPRESSION: No sonographic evidence of deep venous thrombosis of the right lower extremity. Report reported and signed by Juan Wan on 07/19/2022 [id number] Evaluation note* Encounter Date Diagnosis Assessment Notes Treatment Notes Treatment Clinical Notes Jan, Screening for colon cancer (ICD-10 - Z12.11) [facility] Other 05-26-2022 Evaluation note* Encounter Date Diagnosis Assessment Notes Treatment Notes Treatment Clinical Notes November, Renovascular hypertension (ICD-10 - I15.0) She has HTN with Renal artery stenoses. Continue Losartan 100 mg daily. Her blood pressure is well controlled at home but sometimes runs high in the office. I have advised her to monitor her blood pressure at home and call me if it is >140/90 mm Hg. Her Renin, Aldosterone, Serum Cortisol and metanephrine are unremarkable November, Renal artery stenosis (ICD-10 - I70.1) She has controlled blood pressure with stable renal function. She has no evidence of pulmonary edema. No need for surgical intervention. November, Dyslipidemia (ICD-10 - E78.5) Continue current dose of statins November, Rheumatoid arthritis, involving unspecified site, unspecified rheumatoid factor presence (ICD-10 - M06.9) Continue to follow with Dr. Randall November, Chronic hyponatremia (ICD-10 - E87.1) She has chronic hyponatremia likely due to the medication. Her serum sodium is within acceptable range. She has an appropriately high urine sodium and urine osmolality. November, Vitamin D deficiency (ICD-10 - E55.9) Her Vitamin D is normal . Continue Vit D November, Anemia of renal disease (ICD-10 - D63.1) Hb is within the goal. Will check Iron studies. Advised her to take oral Iron every other day. She is due for Colonoscopy . Advised her to schedule it [facility] Other Phone: [phone] NoteHNO ID: [id number] Author: Jose G Wells MD Service: Vascular Surgery Author Type: Physician Type: Progress Notes Filed: 05/07/2021 7:30 AM Note Text: NAME: ZEYNEP ABBASI [facility] NO: [id number] DATE OF SERVICE: 05/03/2021 DATE OF : 1950 She is here to see me in follow-up for a left renal artery stenosis. Her blood pressure is still controlled on 100 mg of Losartan with no other medications. Today, her blood pressure was a little bit high when she saw me and it was 182/94, but it has been better in the past. She has had an ultrasound done at [facility] that was done in February which still showed a unilateral renal artery stenosis without any loss of renal mass. Her blood pressure now remains well controlled three years after the original finding of unilateral renal artery hypertension. Impression/Plan: At this point, without any worsening of her blood pressure, she should not need it checked it again. If she gets to the point where she is on three or more medications to help control her blood pressure, I would recommend checking another renal artery duplex. Otherwise, I would have her continue to follow-up with Dr. Castañeda to try and keep her blood pressure at a goal of less than 140. Jose G Wells M.D. SPL/089 Audio #: [id number] Date Dictated: 04/19/2021 23:17:18 Date Typed: 05/03/2021 14:30:58 Date Revised: 05/03/2021 16:03:18[facility]10-28-2021 NoteHNO ID: [id number] Author: Jose G Wells MD Service: ? Author Type: Physician Type: Progress Notes Filed: 05/03/2021 11:53 AM Note Text: Here for f/u of unilateral renal artery stenosis with well-controlled hypertension [facility] [place] DEPARTMENT OF VASCULAR SURGERY OUTPATIENT VISIT DATE May 03, 2021 OUTPATIENT VISIT TYPE ESTABLISHED SERVICE DATE: 05/03/2021 SERVICE TIME: 11:20 AM PRIMARY CARE PHYSICIAN: Hudson Castañeda MD HISTORY OF PRESENT ILLNESS: Ms. Abbasi is a 70 year old female who presents today for a vascular surgery follow-up visit. PAST MEDICAL HISTORY Diagnosis Date - Allergy seasonal - DDD (degenerative disc disease), cervical - GERD (gastroesophageal reflux disease) on nexium - HTN (hypertension) - Hyperlipidemia - Osteoarthritis - Renal artery stenosis (HCC) - Rheumatoid arthritis (HCC) - Sleep apnea - Vertigo PAST SURGICAL HISTORY Procedure Laterality Date - PAST SURGICAL HISTORY OF foot surgery x3 - TONSILLECTOMY HX at 5 year old SOCIAL HISTORY Social History Tobacco Use - Smoking status: Former Smoker Packs/day: 1.00 Years: 28.00 Pack years: 28.00 Types: Cigarettes Quit date: 02/04/1997 Years since quittin.2 - Smokeless tobacco: Never Used Substance Use Topics - Alcohol use: Yes Comment: Once Or Twice A Month - Drug use: Not on file MEDICATIONS: cyclobenzaprine (FLEXERIL) 10 mg tablet Take by mouth twice daily as needed. GABAPENTIN ORAL Take 100 mg by mouth as needed. losartan (COZAAR) 100 mg tablet Take 100 mg by mouth once daily. TURMERIC ORAL Take by mouth. Lactobacillus acidophilus (PROBIOTIC ORAL) Take by mouth once daily. estradiol (ESTRACE) 0.01 % (0.1 mg/gram) vaginal cream Use vaginally one time a week. Ascorbate Calcium-Bioflavonoid (JOSE MANUEL C WITH BIOFLAVONOIDS) 500-200 mg tab Take 500 mg by mouth once daily. aspirin, enteric coated (ASPIRIN, ENTERIC COATED) 81 mg EC tablet Take 81 mg by mouth two times a week. atorvastatin (LIPITOR) 20 mg tablet Take 20 mg by mouth once daily. fexofenadine (SASHA) 180 mg tablet Take 180 mg by mouth once daily. Magnesium Oxide 500 mg tab Take by mouth as directed. esomeprazole 40 mg SolR 40 mg 20 mg once daily. PO zolpidem 10 mg Tab Take by mouth at bedtime as needed. fluticasone 50 mcg/actuation nasal spray Use 2 Sprays in each nostril once daily. multivitamin (MULTIPLE VITAMIN) tablet Take 1 tablet by mouth once daily. Lysine 1,000 mg Tab Take by mouth once daily. cholecalciferol, vitamin D3, (VITAMIN D3) 4,000 unit Cap Take by mouth once daily. POTASSIUM-99 ORAL Take by mouth once daily. krill oil 500 mg cap Take by mouth once daily. ALLERGIES: ALLERGIES No Known Allergies Diagnostic tests reviewed for today's visit: Most recent imaging report IMPRESSION and PLAN: This office note has been dictated. STAFF PHYSICIAN: Jose G Wells MD DATE OF SERVICE: May 03, 2021 TIME OF SERVICE: 11:20 AM [facility] noteNo assessment information available[facility] Work Phone: Evaluation noteNo InformationNort [employer] Other Evaluation note* Diagnosis Onset Date Resolution Status Chronic hyponatremia acute Hypercholesterolemia acute Renal artery stenosis acute Renovascular hypertension ac [place] Rheumatoid arthritis acute Vitamin D deficiency acute [facility] Work Phone: History and physical note Author Jordan Gutierrez [facility] January 31, 2022 8:44am Note Date/Time January 31, 2022 8:44 am [facility] [address] [place] [address] Gastroenterology H&P Signed Patient: Zeynep Abbasi MR#: [id number] : 1950 Acct:[id number] Age/Sex: 71 / F Adm Date: 2 Loc: Room: Type: [facility] Attending Dr: Jordan Gutierrez MD Copies to: MD Hudson Robert MD~ Date of Service: 01/31/2022 HISTORY & PHYSICAL: Patient's history with special attention to the cardiovascular, pulmonary systems and the current problem was reviewed with the patient immediately prior to the procedure. Present medications and doses reviewed in the EMR. Allergies and pertinent laboratory tests were also reviewedat this time in the EMR. The physical examination, as below, was then performed. Indication, assessment and HPI: 71-year-old female presents for screening colonoscopy Family history of GI malignancy? No PHYSICAL EXAMINATION Mouth and Pharynx : Moist mucus membranes, normal dentition Cardiac: Regular rate, regular rhythm Pulmonary: Clear to auscultation bilaterally, no wheezing Neurological: Alert and oriented x3, no focal deficits noted Abdomen: Abdomen soft, non-tender REVIEW OF SYSTEMS Constitutional: Denies malaise, fevers Cardiovascular: Denies chest pain, palpitations Respiratory: Denies shortness of breath, wheezing Gastrointestinal: Per HPI Genitourinary: Denies dysuria, polyuria Musculoskeletal: Denies joint swelling, joint stiffness Neurological: Denies numbness, tingling Integumentary: Denies rashes, skin lesions Endocrine: Denies fatigue, weight loss Written informed consent obtained from the patient. Risks (including but not limited to perforation, infection, bloating, bleeding, need for emergent surgeryand loss of life), benefits and alternatives explained and questions answered. The patient verbalized understanding. Based on history patient is an appropriate candidate for the procedure. Jordan Gutierrez MD Documented By: Jordan Gutierrez MD 01/31/22 0844 Signed By: <Electronically signed by Jordan Gutierrez MD> 01/31/22 0844 [facility] Work Phone: History general Narrative - Reported* Type Description Date Medical History Gastroesophageal ref lux disease, esophagitis presence not specified Medical History Rheumatoid arthritis of foot, unspecified laterality, unspecified rheumatoid factor presence Medical History Anxiety Medical History Primary insomnia Medical History Hypercholesterolemia Medical History SEASONAL ALLERGIES Medical History SLEEP APNEA Medical History VERTIGO Medical History HTN Medical History Left renal artery stenosis Medical History SCIATIC PAIN ON THE RIGHT SIDE Surgical History Foot Surgery Surgical History tonsillectomy Surgical History colonoscopy Surgical History biopsy Hospitalization History see above Hospitalization History VERTIGO 2003 Hospitalization History SCIATIC RIGHT SIDE PAIN 05/2018 [facility] Other History general Narrative - Reported* Type Description Date Medical History Gastroesophageal ref lux disease, esophagitis presence not specified Medical History Rheumatoid arthritis of foot, unspecified laterality, unspecified rheumatoid factor presence Medical History Anxiety Medical History Primary insomnia Medical History Hypercholesterolemia Medical History SEASONAL ALLERGIES Medical History SLEEP APNEA Medical History VERTIGO Medical History HTN Medical History Left renal artery stenosis Medical History SCIATIC PAIN ON THE RIGHT SIDE Medical History COVID 09/2022 Medical History COVID 02/2022 Surgical History Foot Surgery Surgical History tonsillectomy Surgical History colonoscopy Surgical History biopsy Hospitalization History see above Hospitalization History VERTIGO 2003 Hospitalization History SCIATIC RIGHT SIDE PAIN 05/2018 [facility] Other Summary Purpose Family History No Family History Records Found Relationship Condition Age at Onset Recorded Date/T javon sister Malignant neoplasm of ovary Unknown father Leukemia Unknown Relationship Condition Age at Onset Recorded Date/T javon sister Malignant neoplasm of ovary Unknown father Leukemia Unknown father Malignant neoplasm Unknown Unknown Hypertension Unknown Not Specified Unknown Family history of mental disorder Unknown sister History of ovarian cancer Unknown Malignant neoplasm Unknown Advance Directives No Advanced Directives Records Found Advance Directive Response Recorded Date/ Time Advance Directives No March 7:46am Advance Directive Response Recorded Date/ Time Advance Directives No March 8:46am Chief Complaint and Reason for Visit Chief Complaint soof see order Z12.31 Z13.820 Z78.0 Chief Complaint soof see order Chief Complaint Screening Screening Screening Chief Complaint Screening Screening z79.899 m05.79 Chief Complaint m05.79 m15.0 z79.899 Left Knee Pain Chief Complaint m05.79 m15.0 z79.899 Left Knee Pain Screening Chief Complaint soof Chief Complaint See order Chief Complaint See order RENAL 1 yr f/u Reason for Visit Chronic hyponatremia Hypercholesterolemia Renal artery stenosis Renovascular hypertension Rheumatoid arthritis Vitamin D deficiency Assessments No Assessments Information AvailableNo Assessments Information Available Additional Source Comments INFORMATION SOURCE (unrecogn ized section and content) DATE CREATED AUTHOR 06/21/2018 [facility] DATE CREATED AUTHOR AUTHOR'S ORGANIZ ATION 08/11/2021 [facility] DATE CREATED AUTHOR AUTHOR'S ORGANIZ ATION 07/18/2022 [facility] DATE CREATED AUTHOR AUTHOR'S ORGANIZ ATION 07/19/2022 [facility] DATE CREATED AUTHOR AUTHOR'S ORGANIZ ATION 10/28/[address] [facility] DATE CREATED AUTHOR AUTHOR'S ORGANIZ ATION 11/04/2023 [facility] DATE CREATED AUTHOR AUTHOR'S ORGANIZ ATION 11/12/2023 [facility] EPIC DATE CREATED AUTHOR AUTHOR'S ORGANIZ ATION 11/27/2023 [facility] REASON FOR VISIT (unrecogniz ed section and content) HTN and HyponatremiaMAIL PPW KREFILLCKD and HTNClinical Care Teams (unrecognized sec tion and content) Team Status: Inactive Member Role Status Dates Hudson Castañeda MD Primary Care Provider Active Jordan Gutierrez MD Attending Provider Active Team Status: Inactive Member Role Status Dates Hudson Castañeda MD Primary Care Provider Active Kamari Virk MD Attending Provider Active José Luis Brennan MD Referring Provider Active Team Status: Active Member Role Status Dates Hudson Castañeda MD Primary Care Provider Active Team Status: Inactive Member Role Status Dates Hudson Castañeda MD Primary Care Provider Active Sg Randall MD Attending Provider Active Team Status: Inactive Member Role Status Dates Hudson Castañeda MD Primary Care Provider Active CHANTEL Zaldivar Attending Provider Active Team Status: Inactive Member Role Status Dates Hudson Castañeda MD Primary Care Provider Active José Luis Brennan MD Attending Provider Active Team Status: Inactive Member Role Status Dates Hudson Castañeda MD Primary Care Provider Active Tamera Randall MD Attending Provider Active Team Status: Inactive Member Role Status Dates Hudson Castañeda MD Primary Care Provider Active Start: October 27, 2023 End: October 27, 2023 Tamera Randall MD Attending Provider Active St art: October 27, 2023 End: October 27, 2023 Team Status: Inactive Member Role Status Dates Hudson Castañeda MD Primary Care Provider Active Start: November 13, 2023 End: November 13, 2023 Gonsalo Stevens MD Attending Provider Active Start : November 13, 2023 End: November 13, 2023 Goals (unrecognized section and content) Goals may be documented in a n alternate section FOR RECORDS PERTAINING TO PATIENTS WHO ARE OR HAVE BEEN ENROLLED IN A CHEMICAL DEPENDENCY/SUBSTANCEABUSE PROGRAM, SOME INFORMATION MAY BE OMITTED. This clinical summary was aggregated from multiple sources. Caution should be exercised in using it in the provision of clinical care. This summary normalizes information from multiple sources, and as a consequence, information in this document may materially change the coding, format and clinical context of patient data. In addition, data may be omitted in some cases. CLINICAL DECISIONS SHOULD BE BASED ON THE PRIMARY CLINICAL RECORDS. [employer] provides no warranty or guarantee of the accuracy or completeness of information in this document.
--- NOTE | 2023-11-29 01:53 | ED_ITS ---
HPI - Extremity Problem General Chief complaint: Extremity Problem, Nontraumatic Stated complaint: Lower Extremity Pain Time Seen by Provider: 11/29/23 01:50 Source: patient Mode of arrival: walk-in Limitations: no limitations History of Present Illness HPI Narrative: right sciatica ongoing past 3-4 days. Seen at urgent care . Pain radiates from buttocks to her knee. No injury. No weakness or loss of control or bowel or bladder Related Data Home Medications ?Medication ?Instructions ?Recorded ?Confirmed amlodipine 5 mg tablet 10 mg PO DAILY 11/29/23 11/29/23 atorvastatin 20 mg tablet 20 mg PO DAILY 11/29/23 11/29/23 colchicine 0.6 mg tablet 0.6 mg PO DAILY PRN gout 11/29/23 11/29/23 cyclobenzaprine 10 mg tablet 10 mg PO DAILY 11/29/23 11/29/23 fluticasone propionate 50 1 spray intranasal DAILY 11/29/23 11/29/23 mcg/actuation nasal spray,suspension gabapentin 100 mg capsule 100 mg PO Q12H 11/29/23 11/29/23 lidocaine 5 % topical patch 1 patch topical Q24H PRN pain 11/29/23 11/29/23 losartan 100 mg tablet 100 mg PO DAILY 11/29/23 11/29/23 prednisone 5 mg tablet 10 mg PO DAILY PRN flare ups 11/29/23 11/29/23 zolpidem 10 mg tablet 10 mg PO DAILY 11/29/23 11/29/23 Allergies Allergy/AdvReac Type Severity Reaction Status Date / Time No Known Drug Allergies Allergy Verified 11/29/23 01:40 Review of Systems ROS Status of ROS 10 or more systems reviewed and unremark able except as noted in history and below Exam Constitutional Vital Signs, click to edit/add: Last Vital Signs Temp 98.1 F 11/29/23 01:33 Pulse 75 11/29/23 01:33 Resp 16 11/29/23 01:33 BP 141/76 11/29/23 01:33 Pulse Ox 96 11/29/23 01:33 O2 Del Method Room Air 11/29/23 01:33 Common normals: no apparent distress, average body habitus, oriented x3, no limitations, healthy appearing, alert and well nourished [facility] Common normals: normocephalic and head/scalp atraumatic Eye Common normals: EOMs intact bilaterally and conjunctivae normal Respiratory Common normals: normal respiratory effort, no retractions, no use of accessory muscles and clear to auscultation bilaterally Cardio Common normals: regular rate, regular rhythm, S1 normal heart sound and S2 normal heart sound Back & Pelvis Common normals: no CVA tenderness and thoracic and lumbar spine normal to inspection Extremity Common normals: normal to inspection Neuro Common normals: oriented x3, CN's II-XII intact bilaterally, moves all extremities, no focal motor deficits and no sensory deficits noted Psych Appearance: grossly normal Course Vital Signs Vital signs: Vital Signs Temperature 98.1 F 11/29/23 01:33 Pulse Rate 75 11/29/23 01:33 Respiratory Rate 16 11/29/23 01:33 Blood Pressure 141/76 11/29/23 01:33 Pulse Oximetry 96 11/29/23 01:33 Oxygen Delivery Method Room Air 11/29/23 01:33 Temperature 98.1 F 11/29/23 01:33 Pulse Rate 75 11/29/23 01:33 Respiratory Rate 16 11/29/23 01:33 Blood Pressure 141/76 11/29/23 01:33 Pulse Oximetry 96 11/29/23 01:33 Oxygen Delivery Method Room Air 11/29/23 01:33 MDM - Extremity (Nontraumatic) MDM Narrative Medical decision making narrative: presents with right sciatica. pain improved with intervention provided in the hospital that included magnesium, solumedrol and orphenadrine. Discharged home with # 4 namrata. Advised to follow up with her doctor Lab Data Labs: Lab Results 11/29/23 Range/Units 02:04 WBC 7.9 (4.0-11.0) 10^3/uL RBC 3.42 L (4.20-5.40) 10^6/uL Hgb 10.3 L (12.0-16.0) g/dL Hct 31.5 L (36.0-48.0) % MCV 92.1 (81.0-99.0) fL MCH 30.1 (26.7-34.0) pg MCHC 32.7 (29.9-35.2) g/dL RDW 12.9 (11.0-15.0) % Plt Count 266 (150-450) 10^3/uL MPV 10.3 (9.5-13.5) fL Neut % (Auto) 70.0 (43.0-75.0) % Lymph % (Auto) 20.1 L (20.5-60.0) % Dickson % (Auto) 8.4 (1.7-12.0) % Eos % (Auto) 0.8 L (0.9-7.0) % Baso % (Auto) 0.4 (0.2-2.0) % Neut # (Auto) 5.6 (1.4-6.5) 10^3/uL Lymph # (Auto) 1.6 (1.2-3.8) 10^3/uL Dickson # (Auto) 0.7 (0.3-0.8) 10^3/uL Eos # (Auto) 0.1 (0.0-0.7) 10^3/uL Baso # (Auto) 0.0 (0.0-0.1) 10^3/uL Abs Immat Gran (auto) 0.02 (0.00-0.03) 10^3/uL Imm/Tot Granulo (auto) 0.3 (0.0-0.5) % ESR 33 H (<=30) mm/hr Sodium 131 L (136-145) mmol/L Potassium 3.8 (3.5-5.1) mmol/L Chloride 96 L (98-107) mmol/L Carbon Dioxide 24.3 (21.0-32.0) mmol/L Anion Gap 14.5 BUN 23.0 H (7.0-18.0) mg/dL Creatinine 0.79 (0.55-1.02) mg/dL Est GFR ( Amer) >60 (>=60) Est GFR (Non-Af Amer) >60 (>=60) BUN/Creatinine Ratio 29.1 Glucose 126 H (74-106) mg/dL Calcium 9.3 (8.5-10.1) mg/dL C-Reactive Protein <0.50 (<=0.50) mg/dL Discharge Plan Discharge Stand Alone Forms: Portal Instructions Chief Complaint: Extremity Problem, Nontraumatic Clinical Impression: Right sided sciatica Patient Disposition: Home, Self-Care Prescriptions / Home Meds: No Action amlodipine 5 mg tablet 10 mg PO DAILY atorvastatin 20 mg tablet 20 mg PO DAILY colchicine 0.6 mg tablet 0.6 mg PO DAILY PRN (Reason: gout) cyclobenzaprine 10 mg tablet 10 mg PO DAILY Rx Instructions: at HS fluticasone propionate 50 mcg/actuation spray,suspension 1 spray INTRANASAL DAILY gabapentin 100 mg capsule 100 mg PO Q12H lidocaine 5 % adhesive patch,medicated 1 patch topical Q24H PRN (Reason: pain) losartan 100 mg tablet 100 mg PO DAILY prednisone 5 mg tablet 10 mg PO DAILY PRN (Reason: flare ups) zolpidem 10 mg tablet 10 mg PO DAILY Print Language: Yoruba Instructions: Sciatica (ED) Referrals: SHAINA CASTAÑEDA [Primary Care Provider] - 1 week
[2023-11-29 02:11] LABS: Basophils Percent Auto 0.4 % (0.2-2.0); Eosinophils Absolute Auto 0.1 10^3/uL (0.0-0.7); Eosinophils Percent Auto 0.8 % (0.9-7.0); Hematocrit 31.5 % (36.0-48.0); Hemoglobin 10.3 g/dL (12.0-16.0); Immature Granulocytes Abs Auto 0.02 10^3/uL (0.00-0.03); Immature Granulocytes Pct Auto 0.3 % (0.0-0.5); Lymphocytes Absolute Auto 1.6 10^3/uL (1.2-3.8); Lymphocytes Percent Auto 20.1 % (20.5-60.0); Mean Corpuscular HGB Conc 32.7 g/dL (29.9-35.2); Mean Corpuscular Hemoglobin 30.1 pg (26.7-34.0); Mean Corpuscular Volume 92.1 fL (81.0-99.0); Mean Platelet Volume 10.3 fL (9.5-13.5); Monocytes Absolute Auto 0.7 10^3/uL (0.3-0.8); Monocytes Percent Auto 8.4 % (1.7-12.0); Neutrophils Absolute Auto 5.6 10^3/uL (1.4-6.5); Platelet Count 266 10^3/uL (150-450); Red Blood Count 3.42 10^6/uL (4.20-5.40); Red Cell Distribution Width 12.9 % (11.0-15.0); White Blood Count 7.9 10^3/uL (4.0-11.0)
[2023-11-29 02:21] LABS: Anion Gap 14.5; BUN Creatinine Ratio 29.1; C Reactive Protein <0.50 mg/dL (<=0.50); Calcium 9.3 mg/dL (8.5-10.1); Carbon Dioxide 24.3 mmol/L (21.0-32.0); Chloride 96 mmol/L (98-107); Estimated GFR (African America >60 (>=60); Estimated GFR (Non-African Ame >60 (>=60); Glucose 126 mg/dL (74-106); Potassium 3.8 mmol/L (3.5-5.1); Sodium 131 mmol/L (136-145)
[2023-11-29] MEDS: MAGNESIUM SULFATE IN WATER 2 GM/50 ML PREMIX IV (02:24)
[2023-11-29] MEDS: ORPHENADRINE 60 MG/ 2 ML VIAL IV (02:24)
[2023-11-29] MEDS: METHYLPREDNISOLONE SOD SUCC PF 125 MG/2 ML VIAL IVP (02:24)
[2023-11-29 02:31] LABS: Erythrocyte Sedimentation Rate 33 mm/hr (<=30)
[2023-11-29] MEDS: HYDROCODONE/ACET 5-325 MG TABLET 4 TAB PO (04:16)
[2023-11-29 04:20] VITALS: BP 168/75; PULSE 69; O2SAT 96
== END 2023-11-29 04:22 | disposition home or self-care (01) ==
PROVIDERS: Emergency Provider Internal Medicine; PCP Family Medicine
DX: M54.31 Sciatica, right side (principal)
CPT/HCPCS: 36415; 80048; 85025; 85652; 86140; 96365; 96375; 99284; J2919

== ENCOUNTER 2023-11-29 16:16 | Emergency (ER) | payer MEDICARE, SELFPAY ==
[2023-11-29 16:21] VITALS: BP 168/86; PULSE 76; TEMP 37; O2SAT 97
--- OUTSIDE RECORDS SUMMARY | 2023-11-29 16:22 | XMS_ITS | CCD ---
Author Organization [facility] Care Team Providers Care Wallpaper Consultant Name Role Phone Rice, Juan W Unavailable Unavailable Rice, Juan W Unavailable Unavailable Rice, Juan W Unavailable Unavailable HUDSON CASTAÑEDA Unavailable Unavailable Hudson Castañeda Primary Care Provider Sg Randall Attending Provider Kamari Virk Attending Provider You, Gonsalo Unavailable Jordan Gutierrez Unavailable MD Hudson Castañeda Primary Care Provider MD Kamari Virk Attending Provider Unavailabl MD José Luis Brown Referring Provider MD Jordan Gutierrez Attending Provider MD Hudson Castañeda Primary Care Provider [phone] MD Sg Randall Attending Provider DR TAMERA RANDALL Admitting Unavailable TONIA, DR PHILIP Attending Unavailable HEMEYER, DR MERRITT Primary Care Unavailable TONIA, DR HPILIP Consulting Unavailable YOU, GONSALO Admitting Unavailable YOU, GONSALO Attending Unavailable MADDY, DR MERRITT Primary Care Unavailable YOU, GONSALO Consulting Unavailable MADDY, DR MERRITT Admitting Unavailable CONYER, DR MERRITT Attending Unavailable HEMEYER, DR MERRITT Primary Care Unavailable CONYER, DR MERRITT Consulting Unavailable CONYER, DR MERRITT Admitting Unavailable MADDY, DR MERRITT Attending Unavailable MADDY, DR MERRITT Primary Care Unavailable MADDY, DR MERRITT Consulting Unavailable MD Hudson Castañeda Primary Care Provider MD Sg Randall Attending Provider CHANTEL Stafford Attending Provider MD José Luis Brennan Attending Provider MD Hudson Castañeda Primary Care Provider [phone] MD Tamera Randall Attending Provider [phone] MD Hudson Castañeda Primary Care Provider MD Tamera Randall Attending Provider Hudson Castañeda Primary Care Unavailable Tonia, Tamera Admitting Unavailable Tonia, Tamera Attending Unavailable Randall, Tamera Admitting Unavailable Randall, Tamera Attending Unavailable Hemeyer, Edward J Primary Care Unavailable Obermeyer, Torie Mcmillan Admitting Unavailable ObTorie segal Attending Unavailable Hemeyer, Edward J Primary Care Unavailable José Luis Brennan Admitting Unavailable José Luis Brennan Attending Unavailable Hemeyer, Edward J Primary Care Unavailable THIERNO, PRICILLA A Attending Unavailable HEMEYER, EDWARD J Referring Unavailable HEMEYER, EDWARD J Primary Care Unavailable OLIVE DODSON Attending Unavailable PA, PRICILLA A Referring Unavailable HEMEYER, EDWARD J Primary Care Unavailable THIERNO, PRICILLA A Attending Unavailable THIERNO, PRICILLA A Referring Unavailable HEMEYER, EDWARD J Primary Care Unavailable Unavailable Unavailable Unavailable Allergies Allergy Classification Reported Allergen(s) Allergy Type Date of Onset Reaction(s) Facility (1 source) No Known Medication Allergies; Translations: [No Known Medication Allergies] Propensity to adverse reactions (disorder) [facility] Repository (5 sources) Ibuprofen Drug Allergy due to kidneys [facility] Other (5 sources) NSAIDs Propensity to adverse reactions due to kidneys [facility] Other (1 source) Ibuprofen Drug Allergy 3 [facility] Repository (1 source) NSAIDs Drug allergy (disorder) 3 [facility] Repository (2 sources) Pollen; Translations: [POLLEN EXTRACTS] Propensity to adverse reactions to drug (disorder) 8 [facility] Repository Medications Current Medications Medication Drug Class(es) Dates Sig (Normalized) Sig (Original) amLODIPine 5 mg oral tablet (10 sources) Dihydropyridine Calcium Channel Ariela Start: 11-13-2023 End: 11-13-2023 take 10 mg by mouth once daily Amlodipine Active 10 MG PO Daily 180 November 13, 2023 11:56am Start: 11-13-2023 End: 11-13-2023 take 5 mg [...] Feb, Not-Taking atorvastatin 20 mg oral tablet (14 sources) HMG-CoA Reductase Inhibitor Start: 01-31-2022 take 20 mg by mouth once daily Atorvastatin Active 20 MG PO Daily January 31, 2022 12:00am cetirizine hydrochloride 10 mg oral tablet (2 sources) Histamine-1 Receptor Antagonist Start: 11-13-2023 take 1 tablet by mouth once daily Cetirizine (Zyrtec) 10 mg tablet Active 10 MG PO Daily November 13, 2023 12:00am cholecalciferol 0.05 mg oral capsule (9 sources) Vitamin D Start: 01-31-2022 take 1 capsule by mouth once daily Cholecalciferol (Vitamin D3) (Vitamin D3) 50 mcg (2,000 unit) Capsule Active 50 MCG PO Daily January 31, 2022 12:00am cyclobenzaprine hydrochloride 5 mg oral tablet (14 sources) Muscle Relaxant Start: 01-31-2022 take 5 mg by mouth three times daily Cyclobenzaprine Active 5 MG PO Three times daily January 31, 2022 12:00am esomeprazole 20 mg delayed release oral capsule (14 sources) Proton Pump Inhibitor Start: 01-31-2022 take 1 capsule by mouth once daily Esomeprazole Magnesium (Nexium) 20 mg Capsule,Delayed Release(Dr/Ec) Active 20 MG PO Daily January 31, 2022 12:00am fluticasone (16 sources) Corticosteroid Start: 11-13-2023 Fluticasone Propionate Active 2 INH INHALATION Twice daily November 13, 2023 12:00am Start: 01-31-2022 Fluticasone Pr opionate Active 1 INH INHALATION Daily January 31, 2022 12:00am take 2 spray(s) nasa l route once daily Fluticasone Propionate 2 SPRAYS Nasally daily Active gabapentin 100 mg oral capsule (16 sources) Anti-epileptic Agent Start: 01-31-2022 End: 11-13-2023 take 100 mg by mouth three times daily Gabapentin Active 100 MG PO Three times daily November 13, 2023 11:02am lactobacillus rhamnosus gg [id number] unt oral capsule (2 sources) Start: 11-13-2023 take 1 capsule by mouth once daily Lactobacillus Rhamnosus Gg (Culturelle) 10 billion cell capsule Active 1 CAP PO Daily November 13, 2023 12:00am losartan potassium 100 mg oral tablet (20 sources) Angiotensin 2 Receptor Ariela Start: 01-31-2022 End: 11-13-2023 take 100 mg by mouth once daily Losartan Active 100 MG PO Daily November 13, 2023 11:56am lysine 1000 mg oral tablet (14 sources) Start: 01-31-2022 take 1000 mg by mouth once daily Lysine Active 1000 MG PO Daily January 31, 2022 12:00am Magnesium (14 sources) Start: 01-31-2022 take 500 mg by mouth once daily Magnesium Active 500 MG PO Daily January 31, 2022 12:00am take 1 tablet by mouth once cortez y Magnesium 500 MG 1 tablet with a meal Orally Once a day Active melatonin 3 mg oral tablet (2 sources) Start: 11-13-2023 take 3 mg by mouth [...] 50 + - Orally Active Multivitamin preparation (9 sources) Start: 01-31-2022 take 1 tablet by mouth once daily Multivitamin Active 1 TAB PO Daily January 31, 2022 12:00am potassium 99 mg extended release oral tablet (2 sources) Start: 11-13-2023 Potassium Acti ve 99 MG PO 1 to 2 times per day November 13, 2023 12:00am Turmeric extract (2 sources) Start: 11-13-2023 take 400 mg by mouth once daily Turmeric Active 400 MG PO daily November 13, 2023 12:00am Vitamin D 2000 UNIT (5 sources) take 2 capsules by mouth once daily Vitamin D 2000 UNIT 2 capsules Orally Once a day Active zolpidem tartrate 10 mg oral tablet (16 sources) gamma-Aminobut yric Acid-ergic Agonist Start: 01-31-2022 End: 11-13-2023 take 10 mg by mouth at bedtime Zolpidem Active 10 MG PO Bedtime November 13, 2023 11:03am Completed/Discontinued Medications Medication Drug Class(es) Dates Sig (Normalized) Sig (Original) Calcium Carbonate (3 sources) take 1 tablet by mouth once daily Caltrate 600 1 tablet Orally ONCE A DAY Not-Taking fexofenadine hydrochloride 180 mg oral tablet (14 sources) Histamine-1 Receptor Antagonist Start: 01-31-2022 End: 11-13-2023 take 1 tablet by mouth once daily Fexofenadine (Sasha) 180 mg Tablet Discontinued 180 MG PO Daily January 31, 2022 12:00am November 13, 2023 11:02am krill oil (9 sources) Start: 01-31-2022 End: 11-13-2023 Muzhj-Om-9-Dha-Epa -Phospho-Ast (Krill Oil) 1,415-244-14-80 mg Capsule Discontinued 1 CAP PO Daily January 31, 2022 12:00am November 13, 2023 11:03am Start: 01-31-2022 Nrrqs-Gp-1-Dha -Wgs-Ijxhjno-Aju (Krill Oil) 1,404-861-93-80 mg Capsule Active 1 CAP PO Daily [...] Resolved: 11-29-2021 Chronic Deficiency and other anemia (2 sources) Anemia; Translations: [Anemia, unspecified] 11-13-2023 Episodic Disorders of lipid metabolism (17 sources) Dyslipidemia; Translations: [Hyperlipidemia, unspecified] Onset: 11-21-2021 Resolved: 11-29-2021 Chronic Essential hypertension (4 sources) Essential (primary) hypertension; Translations: [ESSENTIAL PRIMARY HYPERTENSION] Onset: 02-11-2022 Chronic Fluid and electrolyte disorders (8 sources) Hypo-osmolality and hyponatremia; Translations: [Chronic hyponatremia] Onset: 11-27-2021 Resolved: 11-29-2021 Episodic Hypertension with complications and secondary hypertension (13 sources) Renovascular hypertension; Translations: [Renovascular hypertension] Onset: 11-27-2021 Resolved: 11-29-2021 Chronic Nutritional deficiencies (17 sources) Vitamin D deficiency; Translations: [Vitamin D deficiency, unspecified] Onset: 11-27-2021 Resolved: 11-29-2021 Chronic Other aftercare (1 source) Other snf (current) drug therapy; Translations: [OTH [employer]NER CURRENT DRUG THERAPY] Onset: 07-17-2022 Episodic Other circulatory disease (2 sources) Stricture of artery; 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] Onset: 11-03-2023 Chronic Peripheral and visceral atherosclerosis (14 sources) Renal artery stenosis; Translations: [Atherosclerosis of renal artery] Onset: 02-09-2018 Resolved: 11-29-2021 Chronic Rheumatoid arthritis and related disease (13 sources) Rheumatoid arthritis; Translations: [Rheumatoid arthritis, unspecified] [...] 10-27-2023 ALT [Catalytic activity/Vol] 16 U/L 7-52 [facility] Albumin [Mass/volume] in Ser um or Plasma by Bromocresol green (BCG) dye binding methoOrdered By: Tamera Randall on 10-27-2023 Albumin BCG dye [Mass/Vol] 4.5 g/dL 3.5-5.7 [facility] Alkaline phosphatase [Enzyma tic activity/volume] in Serum or PlasmaOrdered By: Tamera Randall on 10-27-2023 ALP [Catalytic activity/Vol] 62 U/L 34-104 [facility] Aspartate aminotransferase [ Enzymatic activity/volume] in Serum or PlasmaOrdered By: Tamera Randall on 10-27-2023 AST [Catalytic activity/Vol] 20 U/L 13-39 [facility] Basophils Auto (Bld) [#/Vol] Ordered By: Tamera Randall on 10-27-2023 Basophils (Bld) [#/Vol] 0.0 10*3/uL 0.0-0.2 [facility] Basophils/100 WBC Auto (Bld) Ordered By: Tamera Randall on 10-27-2023 Basophils/100 WBC (Bld) 0.7 % . [facility] Bilirubin.total [Mass/volume ] in Serum or PlasmaOrdered By: Tamera Randall on 10-27-2023 Bilirubin [Mass/Vol] 0.6 mg/dL 0.3-1.0 [facility] Calcium [Mass/volume] in Ser um or PlasmaOrdered By: Tamera Randall on 10-27-2023 Calcium [Mass/Vol] 9.5 mg/dL 8.6-10.3 [facility] Carbon dioxide, total [Moles /volume] in Serum or PlasmaOrdered By: Tamera Randall on 10-27-2023 CO2 [Moles/Vol] 25.7 mmol/L 21.0-31.[address] [facility] Chloride [Moles/volume] in S jl or PlasmaOrdered By: Tamera Randall on 10-27-2023 Chloride [Moles/Vol] 98 mmol/L 98-107 [facility] Complete Blood Count Auto Di ffon 10-27-2023 Basophils (Bld) [#/Vol] 0.0 10*3/uL Normal 0.0-0.2 [facility] Comment on above: Order Comment: Reaso n for Exam Renovascular hypertension;Renal artery stenosis;Dyslipidemia Performed By: #### E SR, RENAL, [id number], MG, [id number], URIC, CMP, FE and TIBC, CBC, JAS #### [facility] [address] Basophils/100 WBC (Bld) 0.7 % Normal . T [facility] Comment on above: Order Comment: Reaso n for Exam Renovascular hypertension;Renal artery stenosis;Dyslipidemia Performed By: #### E SR, RENAL, [id number], MG, [id number], URIC, CMP, FE and TIBC, CBC, JAS #### [address] Eosinophils (Bld) [#/Vol] 0.2 10*3/uL Normal 0.0-0.45 [facility] Comment on above: Order Comment: Reaso n for Exam Renovascular hypertension;Renal artery stenosis;Dyslipidemia Performed By: #### E SR, RENAL, [id number], MG, [id number], URIC, CMP, FE and TIBC, CBC, JAS #### [address] Eosinophils/100 WBC (Bld) 2.7 % Normal . [facility] Comment on above: Order Comment: Reaso n for Exam Renovascular hypertension;Renal artery stenosis;Dyslipidemia Performed By: #### E SR, RENAL, [id number], MG, [id number], URIC, CMP, FE and TIBC, CBC, JAS #### [address] Erythrocyte distribution width (RBC) [Ratio] 13.4 % Normal 11.9-15.3 [facility] Comment on above: Order Comment: Reaso n for Exam Renovascular hypertension;Renal artery stenosis;Dyslipidemia Performed By: #### E SR, RENAL, [id number], MG, [id number], URIC, CMP, FE and TIBC, CBC, JAS #### [address] Hematocrit (Bld) [Volume fraction] 35.5 % Normal 34.0-46.4 [facility] Comment on above: Order Comment: Reaso n for Exam Renovascular hypertension;Renal artery stenosis;Dyslipidemia Performed By: #### E SR, RENAL, [id number], MG, [id number], URIC, CMP, FE and TIBC, CBC, JAS #### [address] Hemoglobin (Bld) [Mass/Vol] 11.9 g/dL Normal 11.8-15.4 [facility] Comment on above: Order Comment: Reaso n for Exam Renovascular hypertension;Renal artery stenosis;Dyslipidemia Performed By: #### E SR, RENAL, [id number], MG, [id number], URIC, CMP, FE and TIBC, CBC, JAS #### [facility] [address] Lymphocytes (Bld) [#/Vol] 1.3 10*3/uL Normal 1.00-4.8 [facility] Comment on above: Order Comment: Reaso n for Exam Renovascular hypertension;Renal artery stenosis;Dyslipidemia Performed By: #### E SR, RENAL, [id number], MG, [id number], URIC, CMP, FE and TIBC, CBC, JAS #### [address] Lymphocytes/100 WBC (Bld) 20.9 % Normal . [facility] Comment on above: Order Comment: Reaso n for Exam Renovascular hypertension;Renal artery stenosis;Dyslipidemia Performed By: #### E SR, RENAL, [id number], MG, [id number], URIC, CMP, FE and TIBC, CBC, JAS #### [address] MCH (RBC) [Entitic mass] 30.4 pg Normal 24.7-34.3 [facility] Comment on above: Order Comment: Reaso n for Exam Renovascular hypertension;Renal artery stenosis;Dyslipidemia Performed By: #### E SR, RENAL, [id number], MG, [id number], URIC, CMP, FE and TIBC, CBC, JAS #### [address] MCV (RBC) [Entitic vol] 90.4 fL Normal 80-100 [facility] Comment on above: Order Comment: Reaso n for Exam Renovascular hypertension;Renal artery stenosis;Dyslipidemia Performed By: #### E SR, RENAL, [id number], MG, [id number], URIC, CMP, FE and TIBC, CBC, JAS #### [address] Mean Corpuscular HGB Conc 33.6 g/dL Normal 32.0-35.0 [facility] Comment on above: Order Comment: Reaso n for Exam Renovascular hypertension;Renal artery stenosis;Dyslipidemia Performed By: #### E SR, RENAL, [id number], MG, [id number], URIC, CMP, FE and TIBC, CBC, JAS #### [facility] [address] [place] [address] [place] Monocytes (Bld) [#/Vol] 0.5 10*3/uL Normal 0.0-0.8 [facility] Comment on above: Order Comment: Reaso n for Exam Renovascular hypertension;Renal artery stenosis;Dyslipidemia Performed By: #### E SR, RENAL, [id number], MG, [id number], URIC, CMP, FE and TIBC, CBC, JAS #### [facility] [address] Monocytes/100 WBC (Bld) 7.5 % Normal . [facility] Comment on above: Order Comment: Reaso n for Exam Renovascular hypertension;Renal artery stenosis;Dyslipidemia Performed By: #### E SR, RENAL, [id number], MG, [id number], URIC, CMP, FE and TIBC, CBC, JAS #### [facility] [address] [place] [address] [place] Neutrophils (Bld) [#/Vol] 4.1 10*3/uL Normal 1.8-7.7 [facility] Comment on above: Order Comment: Reaso n for Exam Renovascular hypertension;Renal artery stenosis;Dyslipidemia Performed By: #### E SR, RENAL, [id number], MG, [id number], URIC, CMP, FE and TIBC, CBC, JAS #### [facility] [address] [place] [id number] [place] Neutrophils/100 WBC (Bld) 68.2 % Normal . [facility] Comment on above: Order Comment: Reaso n for Exam Renovascular hypertension;Renal artery stenosis;Dyslipidemia Performed By: #### E SR, RENAL, [id number], MG, [id number], URIC, CMP, FE and TIBC, CBC, JAS #### [facility] [address] NRBC% 0.1 /100{WBC} Normal 0-0.5 [facility] Comment on above: Order Comment: Reaso n for Exam Renovascular hypertension;Renal artery stenosis;Dyslipidemia Performed By: #### E SR, RENAL, [id number], MG, [id number], URIC, CMP, FE and TIBC, CBC, JAS #### [facility] [address] Platelet mean volume (Bld) [Entitic vol] 9.3 fL Normal 6.3-10.7 [facility] Comment on above: Order Comment: Reaso n for Exam Renovascular hypertension;Renal artery stenosis;Dyslipidemia Performed By: #### E SR, RENAL, [id number], MG, [id number], URIC, CMP, FE and TIBC, CBC, JAS #### [facility] [address] Platelets (Bld) [#/Vol] 275 10*3/uL Normal 150-450 [facility] Comment on above: Order Comment: Reaso n for Exam Renovascular hypertension;Renal artery stenosis;Dyslipidemia Performed By: #### E SR, RENAL, [id number], MG, [id number], URIC, CMP, FE and TIBC, CBC, JAS #### [facility] [address] RBC (Bld) [#/Vol] 3.93 10*6/uL Normal 3.60-5.00 [facility] Comment on above: Order Comment: Reaso n for Exam Renovascular hypertension;Renal artery stenosis;Dyslipidemia Performed By: #### E SR, RENAL, [id number], MG, [id number], URIC, CMP, FE and TIBC, CBC, JAS #### [facility] [address] WBC (Bld) [#/Vol] 6.1 10*3/uL Normal 3.8-11.6 The Counts include 234 beds at the [facility] Comment on above: Order Comment: Reaso n for Exam Renovascular hypertension;Renal artery stenosis;Dyslipidemia Performed By: #### E SR, RENAL, [id number], MG, [id number], URIC, CMP, FE and TIBC, CBC, JAS #### [facility] [address] Comprehensive Metabolic Pane canelo 10-27-2023 Albumin [Mass/Vol] 4.5 g/dL Normal 3.5-5.7 The Counts include 234 beds at the [facility] Comment on above: Order Comment: Reaso n for Exam Renovascular hypertension;Renal artery stenosis;Dyslipidemia Performed By: #### E SR, RENAL, [id number], MG, [id number], URIC, CMP, FE and TIBC, CBC, JAS #### [address] Albumin/Globulin [Mass ratio] 1.7 {ratio} Normal [facility] Comment on above: Order Comment: Reaso n for Exam Renovascular hypertension;Renal artery stenosis;Dyslipidemia Performed By: #### E SR, RENAL, [id number], MG, [id number], URIC, CMP, FE and TIBC, CBC, JAS #### [facility] [address] [place] [id number] [facility] ALP [Catalytic activity/Vol] 62 U/L Normal 34-104 [facility] Comment on above: Order Comment: Reaso n for Exam Renovascular hypertension;Renal artery stenosis;Dyslipidemia Performed By: #### E SR, RENAL, [id number], MG, [id number], URIC, CMP, FE and TIBC, CBC, JAS #### [facility] [address] ALT [Catalytic activity/Vol] 16 U/L Normal 7-52 [facility] Comment on above: Order Comment: Reaso n for Exam Renovascular hypertension;Renal artery stenosis;Dyslipidemia Performed By: #### E SR, RENAL, [id number], MG, [id number], URIC, CMP, FE and TIBC, CBC, JAS #### [place] [id number] [facility] Anion gap [Moles/Vol] 12.8 mmol/L Normal 6.0-15.0 [facility] Comment on above: Order Comment: Reaso n for Exam Renovascular hypertension;Renal artery stenosis;Dyslipidemia Performed By: #### E SR, RENAL, [id number], MG, [id number], URIC, CMP, FE and TIBC, CBC, JAS #### [facility] [address] AST [Catalytic activity/Vol] 20 U/L Normal 13-39 [facility] Comment on above: Order Comment: Reaso n for Exam Renovascular hypertension;Renal artery stenosis;Dyslipidemia Performed By: #### E SR, RENAL, [id number], MG, [id number], URIC, CMP, FE and TIBC, CBC, JAS #### [facility] [address] Bilirubin [Mass/Vol] 0.6 mg/dL Normal 0.3-1.0 [facility] Comment on above: Order Comment: Reaso n for Exam Renovascular hypertension;Renal artery stenosis;Dyslipidemia Performed By: #### E SR, RENAL, [id number], MG, [id number], URIC, CMP, FE and TIBC, CBC, JAS #### [facility] [address] Calcium [Mass/Vol] 9.5 mg/dL Normal 8.6-10.3 The Counts include 234 beds at the [facility] Comment on above: Order Comment: Reaso n for Exam Renovascular hypertension;Renal artery stenosis;Dyslipidemia Performed By: #### E SR, RENAL, [id number], MG, [id number], URIC, CMP, FE and TIBC, CBC, JAS #### [facility] [address] Chloride [Moles/Vol] 98 mmol/L Normal 98-107 [facility] Comment on above: Order Comment: Reaso n for Exam Renovascular hypertension;Renal artery stenosis;Dyslipidemia Performed By: #### E SR, RENAL, [id number], MG, [id number], URIC, CMP, FE and TIBC, CBC, JAS #### [facility] [address] CO2 [Moles/Vol] 25.7 mmol/L Normal 21.0-31.0 [facility] Comment on above: Order Comment: Reaso n for Exam Renovascular hypertension;Renal artery stenosis;Dyslipidemia Performed By: #### E SR, RENAL, [id number], MG, [id number], URIC, CMP, FE and TIBC, CBC, JAS #### [facility] [address] [place] [id number] [facility] Creatinine [Mass/Vol] 0.69 mg/dL Normal 0.60-1.20 [facility] Comment on above: Order Comment: Reaso n for Exam Renovascular hypertension;Renal artery stenosis;Dyslipidemia Performed By: #### E SR, RENAL, [id number], MG, [id number], URIC, CMP, FE and TIBC, CBC, JAS #### [facility] [address] [place] [id number] [facility] GFR/1.73 sq M.predicted MDRD (S/P/Bld) [Vol rate/Area] mL/min/{1.73_m2} Normal [facility] Comment on above: Order Comment: Reaso n for Exam Renovascular hypertension;Renal artery stenosis;Dyslipidemia Performed By: #### E SR, RENAL, [id number], MG, [id number], URIC, CMP, FE and TIBC, CBC, JAS #### [facility] [address] [place] [id number] [facility] Globulin (S) [Mass/Vol] 2.6 g/dL Normal T [facility] Comment on above: Order Comment: Reaso n for Exam Renovascular hypertension;Renal artery stenosis;Dyslipidemia Performed By: #### E SR, RENAL, [id number], MG, [id number], URIC, CMP, FE and TIBC, CBC, JAS #### [facility] [address] [place] [id number] [facility] Glucose [Mass/Vol] 96 mg/dL Normal 70-100 The Counts include 234 beds at the [facility] Comment on above: Order Comment: Reaso n for Exam Renovascular hypertension;Renal artery stenosis;Dyslipidemia Result Comment: [place] Glucose Reference Range is dependent on time and content of last meal. Glucose of more than 200 mg/dL in a nonstressed, ambulatory subject supports the diagnosis of Diabetes Mellitus. ADA recommended reference range Performed By: #### E SR, RENAL, [id number], MG, [id number], URIC, CMP, FE and TIBC, CBC, JAS #### [facility] [address] Potassium [Moles/Vol] 4.5 mmol/L Normal 3.5-5.1 [facility] Comment on above: Order Comment: Reaso n for Exam Renovascular hypertension;Renal artery stenosis;Dyslipidemia Performed By: #### E SR, RENAL, [id number], MG, [id number], URIC, CMP, FE and TIBC, CBC, JAS #### [facility] [address] Protein [Mass/Vol] 7.1 g/dL Normal 6.4-8.9 The Counts include 234 beds at the [facility] Comment on above: Order Comment: Reaso n for Exam Renovascular hypertension;Renal artery stenosis;Dyslipidemia Performed By: #### E SR, RENAL, [id number], MG, [id number], URIC, CMP, FE and TIBC, CBC, JAS #### [facility] [address] Sodium [Moles/Vol] 132 mmol/L Low 136-145 The Counts include 234 beds at the [facility] Comment on above: Order Comment: Reaso n for Exam Renovascular hypertension;Renal artery stenosis;Dyslipidemia Performed By: #### E SR, RENAL, [id number], MG, [id number], URIC, CMP, FE and TIBC, CBC, JAS #### [facility] [address] Urea nitrogen [Mass/Vol] 21 mg/dL Normal 7-25 [facility] Comment on above: Order Comment: Reaso n for Exam Renovascular hypertension;Renal artery stenosis;Dyslipidemia Performed By: #### E SR, RENAL, [id number], MG, [id number], URIC, CMP, FE and TIBC, CBC, JAS #### [facility] [address] [place] [id number] [facility] Creatinine [Mass/volume] in Serum or PlasmaOrdered By: Tamera Randall on 10-27-2023 Creatinine [Mass/Vol] 0.69 mg/dL 0.60-1.20 [facility] Eosinophils Auto (Bld) [#/Vo l]Ordered By: Tamera Randall on 10-27-2023 Eosinophils (Bld) [#/Vol] 0.2 10*3/uL 0.0-0.45 [facility] Eosinophils/100 WBC Auto (Bl d)Ordered By: Tamera Suarezrow on 10-27-2023 Eosinophils/100 WBC (Bld) 2.7 % . [facility] Erythrocyte Sedimentation Ra eulalio 10-27-2023 ESR (Bld) [Velocity] 17 mm/h Normal 0-29 [facility] Comment on above: Order Comment: Reaso n for Exam Renovascular hypertension;Renal artery stenosis;Dyslipidemia Result Comment: PERF ORMED BY: [place] [address] PATHOLOGIST LEASING PROFESSIONAL ONEIL GAMA M.D. Performed By: #### E SR, RENAL, [id number], MG, [id number], URIC, CMP, FE and TIBC, CBC, JAS #### [facility] [address] Erythrocyte distribution wid th Auto (RBC) [Ratio]Ordered By: Tamera Suarezrow on 10-27-2023 Erythrocyte distribution width (RBC) [Ratio] 13.4 % 11.9-15.3 [facility] Erythrocyte sedimentation ra te by Photometric methodOrdered By: Tamera Randall on 10-27-2023 ESR Photometric method (Bld) [Velocity] 17 mm/hr 0-29 [facility] Ferritinon 10-27-2023 Ferritin [Mass/Vol] 44.3 ng/mL Normal 11.0-306.8 [facility] Comment on above: Order Comment: Reaso n for Exam Renovascular hypertension;Renal artery stenosis;Dyslipidemia Performed By: #### C BC, CMP, ESR #### [facility] [address] [place] [id number] [facility] Ferritin [Mass/volume] in Se rum or PlasmaOrdered By: Gonsalo Stevens on 10-27-2023 Ferritin [Mass/Vol] 44.3 ng/mL 11.0-306.8 [facility] Folate [Mass/volume] in Seru m or PlasmaOrdered By: Gonsalo Stevens on 10-27-2023 Folate [Mass/Vol] 36.0 ng/mL >5.9 [facility] Comment on above: Folate reference ran ge: >5.9 ng/mlThe WHO technical consultation on folate and vitamin [id number] has determined that folate concentrations lessthan 4 ng/ml are considered deficient. Globulin Calc (S) [Mass/Vol] Ordered By: Tamera Randall on 10-27-2023 Globulin (S) [Mass/Vol] 2.6 g/dL [facility] Glucose [Mass/volume] in Ser um or PlasmaOrdered By: Tamera Randall on 10-27-2023 Glucose [Mass/Vol] 96 mg/dL 70-100 [facility] Comment on above: ADA recommended refe rence rangeRandom Glucose Reference Range is dependent on time and content of last meal. Glucose of more than 200 mg/dL in a nonstressed, ambulatory subject supports the diagnosis of Diabetes Mellitus. Hematocrit Auto (Bld) [Volum e fraction]Ordered By: Tamera Randall on 10-27-2023 Hematocrit (Bld) [Volume fraction] 35.5 % 34.0-46.4 [facility] Hemoglobin [Mass/volume] in BloodOrdered By: Tamera Randall on 10-27-2023 Hemoglobin (Bld) [Mass/Vol] 11.9 g/dL 11.8-15.4 [facility] Iron [Mass/volume] in Serum or PlasmaOrdered By: Gonsalo Stevens on 10-27-2023 Iron [Mass/Vol] 93 ug/dL 50-212 [facility] Iron and TIBC Profileon 10-06 % Iron Saturation 25.0 % Normal 20-50 [facility] Comment on above: Order Comment: Reaso n for Exam Renovascular hypertension;Renal artery stenosis;Dyslipidemia Performed By: #### C BC, CMP, ESR #### [facility] [address] Iron [Mass/Vol] 93 ug/dL Normal 50-212 [facility] Comment on above: Order Comment: Reaso n for Exam Renovascular hypertension;Renal artery stenosis;Dyslipidemia Performed By: #### C BC, CMP, ESR #### [facility] [address] [place] [id number] [facility] Total Iron Binding Capacity 372 ug/dL Normal 255-450 [facility] Comment on above: Order Comment: Reaso n for Exam Renovascular hypertension;Renal artery stenosis;Dyslipidemia Performed By: #### C BC, CMP, ESR #### [facility] [address] [place] [address] [facility] Transferrin [Mass/Vol] 266 mg/dL Normal 203-362 [facility] Comment on above: Order Comment: Reaso n for Exam Renovascular hypertension;Renal artery stenosis;Dyslipidemia Performed By: #### C BC, CMP, ESR #### [facility] [address] [place] [id number] [facility] Iron binding capacity [Mass/ volume] in Serum or PlasmaOrdered By: Gonsalo You on 10-27-2023 Iron binding capacity [Mass/Vol] 372 ug/dL 255-450 [facility] Iron saturation [Mass Fracti on] in Serum or PlasmaOrdered By: Gonsalo You on 10-27-2023 Iron saturation [Mass fraction] 25.0 % 20-50 [facility] Leukocytes [#/volume] correc taylor for nucleated erythrocytes in Blood by Automated counOrdered By: Tamera Randall on 10-27-2023 WBC corrected for nucl RBC Auto (Bld) [#/Vol] 6.1 10*3/uL 3.8-11.6 [facility] Lymphocytes Auto (Bld) [#/Vo l]Ordered By: Tamera Randall on 10-27-2023 Lymphocytes (Bld) [#/Vol] 1.3 10*3/uL 1.00-4.8 [facility] Lymphocytes/100 WBC Auto (Bl d)Ordered By: Tamera Randall on 10-27-2023 Lymphocytes/100 WBC (Bld) 20.9 % . [facility] MCH Auto (RBC) [Entitic mass ]Ordered By: Tamera Randall on 10-27-2023 MCH (RBC) [Entitic mass] 30.4 pg 24.7-34.3 [facility] MCHC Auto (RBC) [Mass/Vol]Or dered By: Tamera Randall on 10-27-2023 MCHC (RBC) [Mass/Vol] 33.6 g/dL 32.0-35.0 [facility] MCV Auto (RBC) [Entitic vol] Ordered By: Tamera Randall on 10-27-2023 MCV (RBC) [Entitic vol] 90.4 fL 80-100 [facility] Magnesiumon 10-27-2023 Magnesium [Mass/Vol] 1.9 mg/dL Normal 1.9-2.7 [facility] Comment on above: Order Comment: Reaso n for Exam Renovascular hypertension;Renal artery stenosis;Dyslipidemia Performed By: #### C BC, CMP, ESR #### [facility] [address] Magnesium [Mass/volume] in S jl or PlasmaOrdered By: Gonsalo Stevens on 10-27-2023 Magnesium [Mass/Vol] 1.9 mg/dL 1.9-2.7 [facility] Monocytes Auto (Bld) [#/Vol] Ordered By: Tamera Randall on 10-27-2023 Monocytes (Bld) [#/Vol] 0.5 10*3/uL 0.0-0.8 [facility] Monocytes/100 WBC Auto (Bld) Ordered By: Tamera Randall on 10-27-2023 Monocytes/100 WBC (Bld) 7.5 % . [facility] Neutrophils Auto (Bld) [#/Vo l]Ordered By: Tamera Randall on 10-27-2023 Neutrophils (Bld) [#/Vol] 4.1 10*3/uL 1.8-7.7 [facility] Neutrophils/100 WBC Auto (Bl d)Ordered By: Tamera Randall on 10-27-2023 Neutrophils/100 WBC (Bld) 68.2 % . [facility] No Panel InformationOrdered By: Tamera Randall on 10-27-2023 Estimated GFR (CKD-EPI) > 60.0 mL/Min [facility] Creatinine Clearance (Chem N/A [facility] Nucleated erythrocytes [Pres ence] in Blood by Automated countOrdered By: Tamera Randall on 10-27-2023 Nucleated RBC Auto Ql (Bld) 0.1 /100{WBC} 0-0.5 [facility] Parathyrin.intact [Mass/volu me] in Serum or PlasmaOrdered By: Gonsalo Stevens on 10-27-2023 Parathyrin.intact [Mass/Vol] 29.8 pg/mL [facility] Parathyroid Hormone Intacton 10-27-2023 Parathyroid Hormone Intact 29.8 pg/mL Normal [facility] Comment on above: Order Comment: Reaso n for Exam Renovascular hypertension;Renal artery stenosis;Dyslipidemia Result Comment: PERF ORMED BY: [place] [address] PATHOLOGIST LEASING PROFESSIONAL ONEIL GAMA M.D. Performed By: #### P TH #### [address] Phosphate [Mass/volume] in S jl or PlasmaOrdered By: Gonsalo Stevens on 10-27-2023 Phosphate [Mass/Vol] 4.4 mg/dL 2.5-4.5 [facility] Platelet mean volume Auto (B ld) [Entitic vol]Ordered By: Tamera Randall on 10-27-2023 Platelet mean volume (Bld) [Entitic vol] 9.3 fL 6.3-10.7 [facility] Platelets Auto (Bld) [#/Vol] Ordered By: Tamera Randall on 10-27-2023 Platelets (Bld) [#/Vol] 275 10*3/uL 150-450 [facility] Potassium [Moles/volume] in Serum or PlasmaOrdered By: Tamera Randall on 10-27-2023 Potassium [Moles/Vol] 4.5 mmol/L 3.5-5.1 [facility] Protein [Mass/volume] in Ser um or PlasmaOrdered By: Tamera Randall on 10-27-2023 Protein [Mass/Vol] 7.1 g/dL 6.4-8.9 [facility] RBC Auto (Bld) [#/Vol]Ordere d By: Tamera Randall on 10-27-2023 RBC (Bld) [#/Vol] 3.93 10*6/uL 3.60-5.00 [facility] Renal Function Panelon 10-26 Phosphate [Mass/Vol] 4.4 mg/dL Normal 2.5-4.5 [facility] Comment on above: Order Comment: Reaso n for Exam Renovascular hypertension;Renal artery stenosis;Dyslipidemia Performed By: #### E SR, RENAL, [id number], MG, [id number], URIC, CMP, FE and TIBC, CBC, JAS #### [facility] [address] Serum or plasma albumin/glob ulin mass ratioOrdered By: Tamera Randall on 10-27-2023 Albumin/Globulin [Mass ratio] 1.7 {ratio} [facility] Serum or plasma anion gap de terminationOrdered By: Tamera Randall on 10-27-2023 Anion gap [Moles/Vol] 12.8 mmol/L 6.0-15.0 [facility] Sodium [Moles/volume] in Ser um or PlasmaOrdered By: Tamera Randall on 10-27-2023 Sodium [Moles/Vol] 132 mmol/L 136-145 [facility] Transferrin [Mass/volume] in Serum or PlasmaOrdered By: Gonsalo You on 10-27-2023 Transferrin [Mass/Vol] 266 mg/dL 203-362 [facility] Urate [Mass/volume] in Serum or PlasmaOrdered By: Gonsalo You on 10-27-2023 Urate [Mass/Vol] 2.9 mg/dL 2.3-6.[address] [facility] Urea nitrogen [Mass/volume] in Serum or PlasmaOrdered By: Tamera Randall on 10-27-2023 Urea nitrogen [Mass/Vol] 21 mg/dL 7-25 [facility] Uric Acidon 10-27-2023 Urate [Mass/Vol] 2.9 mg/dL Normal 2.3-6.6 [facility] Comment on above: Order Comment: Reaso n for Exam Renovascular hypertension;Renal artery stenosis;Dyslipidemia Performed By: #### C BC, CMP, ESR #### [facility] [address] Vit. B12/Folate Profileon Cobalamin (Vitamin B12) [Mass/Vol] 1280 pg/mL High 180-914 [facility] Comment on above: Order Comment: Reaso n for Exam Renovascular hypertension;Renal artery stenosis;Dyslipidemia Performed By: #### C BC, CMP, ESR #### [address] Folate 36.0 ng/mL Normal >5.9 [facility] Comment on above: Order Comment: Reaso n for Exam Renovascular hypertension;Renal artery stenosis;Dyslipidemia Result Comment: Alcira te reference range: >5.9 ng/ml The WHO technical consultation on folate and vitamin b12 deficiencies has determined that folate concentrations less than 4 ng/ml are considered deficient. Performed By: #### C BC, CMP, ESR #### [facility] [address] [place] [address] Vitamin B12 ser/plasOrdered By: Gonsalo Stevens on 10-27-2023 Cobalamin (Vitamin B12) [Mass/Vol] 1280 pg/mL 180-914 [facility] Vitamin D 25 Hydroxy Totalon 10-27-2023 Vitamin D 25 Hydroxy Total 57.7 ng/mL Normal 30-100 [facility] Comment on above: Order Comment: Reaso n for Exam Renovascular hypertension;Renal artery stenosis;Dyslipidemia Result Comment: BOBO MIN D STATUS 25(OH)VITAMIN D RANGE (ng/mL) Deficient <20 Insufficient 20 to <30 Sufficient 30 to 100 Reference: Gail MF,Laly NC, Magui GASPAR, et al. Evaluation,treatment, and prevention of vitamin D deficiency; an Endocrine Society clinical practice guideline. JCEM. 2010; 96(7):1911-30. PERFORMED BY: [place] [address] PATHOLOGIST LEASING PROFESSIONAL ONEIL GAMA M.D. Performed By: #### C BC, CMP, ESR #### [address] Vitamin D+Metabolites [Mass/ volume] in Serum or PlasmaOrdered By: Gonsalo Stevens on 10-27-2023 Vitamin D+Metabolites [Mass/Vol] 57.7 ng/mL 30-100 [facility] Comment on above: VITAMIN D STATUS 25( [place])VITAMIN D RANGE (ng/mL) Deficient <20 Insufficient 20 to <30Sufficient 30 to 100Reference: Gail MF,Laly EAGLE, Magui GASPAR, et al. Evaluation,treatment, and prevention of vitamin D deficiency; an Endocrine Society clinical practice guideline. JCEM. 2010; 96(7):1911-30. WBC Auto (Bld) [#/Vol]Ordere d By: Tamera Randall on 10-27-2023 WBC (Bld) [#/Vol] 6.1 10*3/uL 3.8-11.6 [facility] Alanine aminotransferase [En zymatic activity/volume] in Serum or PlasmaOrdered By: Tamera Randall on 04-29-2023 ALT [Catalytic activity/Vol] 17 U/L 7-52 [facility] Albumin [Mass/volume] in Ser um or Plasma by Bromocresol green (BCG) dye binding methoOrdered By: Tamera Randall on 04-29-2023 Albumin BCG dye [Mass/Vol] 4.4 g/dL 3.5-5.7 [facility] Alkaline phosphatase [Enzyma tic activity/volume] in Serum or PlasmaOrdered By: Tamera Randall on 04-29-2023 ALP [Catalytic activity/Vol] 79 U/L 34-104 [facility] Aspartate aminotransferase [ Enzymatic activity/volume] in Serum or PlasmaOrdered By: Tamera Randall on 04-29-2023 AST [Catalytic activity/Vol] 20 U/L 13-39 [facility] Basophils Auto (Bld) [#/Vol] Ordered By: Tamera Randall on 04-29-2023 Basophils (Bld) [#/Vol] 0.0 10*3/uL 0.0-0.2 [facility] Basophils/100 WBC Auto (Bld) Ordered By: Tamera Randall on 04-29-2023 Basophils/100 WBC (Bld) 0.9 % . [facility] Bilirubin.total [Mass/volume ] in Serum or PlasmaOrdered By: Tamera Randall on 04-29-2023 Bilirubin [Mass/Vol] 0.8 mg/dL 0.3-1.0 [facility] Calcium [Mass/volume] in Ser um or PlasmaOrdered By: Tamera Randall on 04-29-2023 Calcium [Mass/Vol] 9.6 mg/dL 8.6-10.3 [facility] Carbon dioxide, total [Moles /volume] in Serum or PlasmaOrdered By: Tamera Randall on 04-29-2023 CO2 [Moles/Vol] 29.3 mmol/L 21.0-31.[address] [facility] Chloride [Moles/volume] in S jl or PlasmaOrdered By: Tamera Randall on 04-29-2023 Chloride [Moles/Vol] 98 mmol/L 98-107 [facility] Complete Blood Count Auto Di ffon 04-29-2023 Basophils (Bld) [#/Vol] 0.0 10*3/uL Normal 0.0-0.2 [facility] Comment on above: Performed By: #### C BC, CMP, ESR #### [facility] [address] [place] [id number] [place] Basophils/100 WBC (Bld) 0.9 % Normal . [facility] Comment on above: Performed By: #### C BC, CMP, ESR #### [facility] [address] [place] [id number] [place] Eosinophils (Bld) [#/Vol] 0.2 10*3/uL Normal 0.0-0.45 [facility] Comment on above: Performed By: #### C BC, CMP, ESR #### [facility] [address] [place] [id number] [place] Eosinophils/100 WBC (Bld) 4.2 % Normal . [facility] Comment on above: Performed By: #### C BC, CMP, ESR #### [facility] [address] [place] [id number] [place] Erythrocyte distribution width (RBC) [Ratio] 13.3 % Normal 11.9-15.3 [facility] Comment on above: Performed By: #### C BC, CMP, ESR #### [address] Hematocrit (Bld) [Volume fraction] 34.2 % Normal 34.0-46.4 [facility] Comment on above: Performed By: #### C BC, CMP, ESR #### [address] Hemoglobin (Bld) [Mass/Vol] 11.5 g/dL Low 11.8-15.4 [facility] Comment on above: Performed By: #### C BC, CMP, ESR #### [address] Lymphocytes (Bld) [#/Vol] 1.4 10*3/uL Normal 1.00-4.8 [facility] Comment on above: Performed By: #### C BC, CMP, ESR #### [address] Lymphocytes/100 WBC (Bld) 29.9 % Normal . [facility] Comment on above: Performed By: #### C BC, CMP, ESR #### [address] MCH (RBC) [Entitic mass] 30.3 pg Normal 24.7-34.3 [facility] Comment on above: Performed By: #### C BC, CMP, ESR #### [address] MCV (RBC) [Entitic vol] 90.0 fL Normal 80-100 T [facility] Comment on above: Performed By: #### C BC, CMP, ESR #### [address] Mean Corpuscular HGB Conc 33.7 g/dL Normal 32.0-35.0 [facility] Comment on above: Performed By: #### C BC, CMP, ESR #### [address] Monocytes (Bld) [#/Vol] 0.4 10*3/uL Normal 0.0-0.8 [facility] Comment on above: Performed By: #### C BC, CMP, ESR #### [facility] [address] [place] [address] [place] Monocytes/100 WBC (Bld) 8.2 % Normal . [facility] Comment on above: Performed By: #### C BC, CMP, ESR #### [facility] [address] Neutrophils (Bld) [#/Vol] 2.7 10*3/uL Normal 1.8-7.7 [facility] Comment on above: Performed By: #### C BC, CMP, ESR #### [facility] [address] Neutrophils/100 WBC (Bld) 56.8 % Normal . [facility] Comment on above: Performed By: #### C BC, CMP, ESR #### [facility] [address] NRBC% 0.1 /100{WBC} Normal 0-0.5 [facility] Comment on above: Performed By: #### C BC, CMP, ESR #### [facility] [address] Platelet mean volume (Bld) [Entitic vol] 8.9 fL Normal 6.3-10.7 [facility] Comment on above: Performed By: #### C BC, CMP, ESR #### [facility] [address] [place] [address] [place] Platelets (Bld) [#/Vol] 276 10*3/uL Normal 150-450 [facility] Comment on above: Performed By: #### C BC, CMP, ESR #### [facility] [address] [place] [address] [place] RBC (Bld) [#/Vol] 3.80 10*6/uL Normal 3.60-5.00 [facility] Comment on above: Performed By: #### C BC, CMP, ESR #### [facility] [address] [place] [address] WBC (Bld) [#/Vol] 4.8 10*3/uL Normal 3.8-11.6 The Counts include 234 beds at the [facility] Comment on above: Performed By: #### C BC, CMP, ESR #### [address] Comprehensive Metabolic Pane canelo 04-29-2023 Albumin [Mass/Vol] 4.4 g/dL Normal 3.5-5.7 The Counts include 234 beds at the [facility] Comment on above: Performed By: #### C BC, CMP, ESR #### [address] Albumin/Globulin [Mass ratio] 1.6 {ratio} Normal [facility] Comment on above: Performed By: #### C BC, CMP, ESR #### [address] ALP [Catalytic activity/Vol] 79 U/L Normal 34-104 [facility] Comment on above: Result Comment: PERF ORMED BY: [place] [address] PATHOLOGIST LEASING PROFESSIONAL ONEIL GAMA M.D. Performed By: #### C BC, CMP, ESR #### [address] ALT [Catalytic activity/Vol] 17 U/L Normal 7-52 [facility] Comment on above: Performed By: #### C BC, CMP, ESR #### [address] Anion gap [Moles/Vol] 9.0 mmol/L Normal 6.0-15.0 [facility] Comment on above: Performed By: #### C BC, CMP, ESR #### [address] AST [Catalytic activity/Vol] 20 U/L Normal 13-39 [facility] Comment on above: Performed By: #### C BC, CMP, ESR #### [address] Bilirubin [Mass/Vol] 0.8 mg/dL Normal 0.3-1.0 [facility] Comment on above: Performed By: #### C AMAN CMP, ESR #### [facility] [address] Calcium [Mass/Vol] 9.6 mg/dL Normal 8.6-10.3 The Counts include 234 beds at the [facility] Comment on above: Performed By: #### C AMAN CMP, ESR #### [facility] [address] Chloride [Moles/Vol] 98 mmol/L Normal 98-107 [facility] Comment on above: Performed By: #### C AMAN CMP, ESR #### [address] CO2 [Moles/Vol] 29.3 mmol/L Normal 21.0-31.0 [facility] Comment on above: Performed By: #### C RICKIE NEWTON, ESR #### [address] Creatinine [Mass/Vol] 0.73 mg/dL Normal 0.60-1.20 [facility] Comment on above: Performed By: #### C RICKIE NEWTON, ESR #### [address] GFR/1.73 sq M.predicted MDRD (S/P/Bld) [Vol rate/Area] mL/min/{1.73_m2} Normal [facility] Comment on above: Performed By: #### C AMAN CMP, ESR #### [address] Globulin (S) [Mass/Vol] 2.7 g/dL Normal [facility] Comment on above: Performed By: #### C AMAN CMP, ESR #### [address] Glucose [Mass/Vol] 83 mg/dL Normal 70-100 The Counts include 234 beds at the [facility] Comment on above: Result Comment: [facility] Glucose Reference Range is dependent on time and content of last meal. Glucose of more than 200 mg/dL in a nonstressed, ambulatory subject supports the diagnosis of Diabetes Mellitus. ADA recommended reference range Performed By: #### C BC, CMP, ESR #### [facility] [address] Potassium [Moles/Vol] 4.3 mmol/L Normal 3.5-5.1 [facility] Comment on above: Performed By: #### C BC, CMP, ESR #### [facility] [address] Protein [Mass/Vol] 7.1 g/dL Normal 6.4-8.9 The Counts include 234 beds at the [facility] Comment on above: Performed By: #### C BC, CMP, ESR #### [facility] [address] Sodium [Moles/Vol] 132 mmol/L Low 136-145 The Counts include 234 beds at the [facility] Comment on above: Performed By: #### C BC, CMP, ESR #### [facility] [address] Urea nitrogen [Mass/Vol] 18 mg/dL Normal 7-25 [facility] Comment on above: Performed By: #### C BC, CMP, ESR #### [address] Creatinine [Mass/volume] in Serum or PlasmaOrdered By: Tamera Randall on 04-29-2023 Creatinine [Mass/Vol] 0.73 mg/dL 0.60-1.20 [facility] Eosinophils Auto (Bld) [#/Vo l]Ordered By: Tamera Randall on 04-29-2023 Eosinophils (Bld) [#/Vol] 0.2 10*3/uL 0.0-0.45 [facility] Eosinophils/100 WBC Auto (Bl d)Ordered By: Tamera Randall on 04-29-2023 Eosinophils/100 WBC (Bld) 4.2 % . [facility] Erythrocyte Sedimentation Ra eulalio 04-29-2023 ESR (Bld) [Velocity] 17 mm/h Normal 0-29 [facility] Comment on above: Result Comment: PERF ORMED BY: [facility] [address] [place] [address] PATHOLOGIST LEASING PROFESSIONAL ONEIL GAMA M.D. Performed By: #### C BC, CMP, ESR #### [address] Erythrocyte distribution wid th Auto (RBC) [Ratio]Ordered By: Tamera Randall on 04-29-2023 Erythrocyte distribution width (RBC) [Ratio] 13.3 % 11.9-15.3 [facility] Erythrocyte sedimentation ra te by Photometric methodOrdered By: Tamera Randall on 04-29-2023 ESR Photometric method (Bld) [Velocity] 17 mm/hr 0-29 [facility] Globulin Calc (S) [Mass/Vol] Ordered By: Tamera Randall on 04-29-2023 Globulin (S) [Mass/Vol] 2.7 g/dL [facility] Glucose [Mass/volume] in Ser um or PlasmaOrdered By: Tamera Randall on 04-29-2023 Glucose [Mass/Vol] 83 mg/dL 70-100 [facility] Comment on above: ADA recommended refe rence rangeRandom Glucose Reference Range is dependent on time and content of last meal. Glucose of more than 200 mg/dL in a nonstressed, ambulatory subject supports the diagnosis of Diabetes Mellitus. Hematocrit Auto (Bld) [Volum e fraction]Ordered By: Tamera Randall on 04-29-2023 Hematocrit (Bld) [Volume fraction] 34.2 % 34.0-46.4 [facility] Hemoglobin [Mass/volume] in BloodOrdered By: Tamera Randall on 04-29-2023 Hemoglobin (Bld) [Mass/Vol] 11.5 g/dL 11.8-15.4 [facility] Leukocytes [#/volume] correc taylor for nucleated erythrocytes in Blood by Automated counOrdered By: Tamera Randall on 04-29-2023 WBC corrected for nucl RBC Auto (Bld) [#/Vol] 4.8 10*3/uL 3.8-11.6 [facility] Lymphocytes Auto (Bld) [#/Vo l]Ordered By: Tamera Randall on 04-29-2023 Lymphocytes (Bld) [#/Vol] 1.4 10*3/uL 1.00-4.8 [facility] Lymphocytes/100 WBC Auto (Bl d)Ordered By: Tamera Randall on 04-29-2023 Lymphocytes/100 WBC (Bld) 29.9 % . [facility] MCH Auto (RBC) [Entitic mass ]Ordered By: Tamera Randall on 04-29-2023 MCH (RBC) [Entitic mass] 30.3 pg 24.7-34.3 [facility] MCHC Auto (RBC) [Mass/Vol]Or dered By: Tamera Randall on 04-29-2023 MCHC (RBC) [Mass/Vol] 33.7 g/dL 32.0-35.0 [facility] MCV Auto (RBC) [Entitic vol] Ordered By: Tamera Randall on 04-29-2023 MCV (RBC) [Entitic vol] 90.0 fL 80-100 [facility] Monocytes Auto (Bld) [#/Vol] Ordered By: Tamera Randall on 04-29-2023 Monocytes (Bld) [#/Vol] 0.4 10*3/uL 0.0-0.8 [facility] Monocytes/100 WBC Auto (Bld) Ordered By: Tamera Randall on 04-29-2023 Monocytes/100 WBC (Bld) 8.2 % . [facility] Neutrophils Auto (Bld) [#/Vo l]Ordered By: Tamera Randall on 04-29-2023 Neutrophils (Bld) [#/Vol] 2.7 10*3/uL 1.8-7.7 [facility] Neutrophils/100 WBC Auto (Bl d)Ordered By: Tamera Randall on 04-29-2023 Neutrophils/100 WBC (Bld) 56.8 % . [facility] No Panel InformationOrdered By: Tamera Randall on 04-29-2023 Estimated GFR (CKD-EPI) > 60.0 mL/Min [facility] Creatinine Clearance (Chem N/A [facility] Nucleated erythrocytes [Pres ence] in Blood by Automated countOrdered By: Tamera Randall on 04-29-2023 Nucleated RBC Auto Ql (Bld) 0.1 /100{WBC} 0-0.5 [facility] Platelet mean volume Auto (B ld) [Entitic vol]Ordered By: Tamera Randall on 04-29-2023 Platelet mean volume (Bld) [Entitic vol] 8.9 fL 6.3-10.7 [facility] Platelets Auto (Bld) [#/Vol] Ordered By: Tamera Randall on 04-29-2023 Platelets (Bld) [#/Vol] 276 10*3/uL 150-450 [facility] Potassium [Moles/volume] in Serum or PlasmaOrdered By: Tamera Randall on 04-29-2023 Potassium [Moles/Vol] 4.3 mmol/L 3.5-5.1 [facility] Protein [Mass/volume] in Ser um or PlasmaOrdered By: Tamera Randall on 04-29-2023 Protein [Mass/Vol] 7.1 g/dL 6.4-8.9 [facility] RBC Auto (Bld) [#/Vol]Ordere d By: Tamera Randall on 04-29-2023 RBC (Bld) [#/Vol] 3.80 10*6/uL 3.60-5.00 [facility] Serum or plasma albumin/glob ulin mass ratioOrdered By: Tamera Randall on 04-29-2023 Albumin/Globulin [Mass ratio] 1.6 {ratio} [facility] Serum or plasma anion gap de terminationOrdered By: Tamera Randall on 04-29-2023 Anion gap [Moles/Vol] 9.0 mmol/L 6.0-15.0 [facility] Sodium [Moles/volume] in Ser um or PlasmaOrdered By: Tamera Randall on 04-29-2023 Sodium [Moles/Vol] 132 mmol/L 136-145 [facility] Urea nitrogen [Mass/volume] in Serum or PlasmaOrdered By: Tamera Randall on 04-29-2023 Urea nitrogen [Mass/Vol] 18 mg/dL 7-25 [facility] WBC Auto (Bld) [#/Vol]Ordere d By: Tamera Randall on 04-29-2023 WBC (Bld) [#/Vol] 4.8 10*3/uL 3.8-11.6 [facility] MM screening mammo BI w/CADo n 01-08-2023 MM screening mammo BI w/CAD [facility] [place] [address] [place], [place] [id number] Mammography Report Signed Patient: Zeynep Abbasi MR#: [id number] : 1950 Acct:[id number] Age/Sex: 72 / F ADM Date: 01/08/23 Loc: CT Room: Type: [facility] Attending Dr: José Luis Brennan MD Copies [...] Leidy Dorman M.D.01/08/2023 3:01 PM Dictation Location: [facility] Transcribed By: ARIELLA 01/08/23 1501 Dictated By: Leidy Dorman MD 01/08/23 1458 Signed By: 01/08/23 1501 Normal [facility] XR knee LT 2Von 10-29-2022 XR knee LT 2V [place] [address] XRay Report Signed Patient: Zeynep Abbasi MR#: [id number] : 1950 Acct:[id number] Age/Sex: 72 / F ADM Date: 10/29/22 Loc: ICXD Room: Type: [facility] Attending Dr: Torie GOLDEN Copies to: CHANTEL [...] Jordan Reyes M.D.10/29/2022 3:11 PM Dictation Location: [place] [address] Transcribed By: [facility] 10/29/22 1511 Dictated By: Jordan Reyes II, MD 10/29/22 1510 Signed By: 10/29/22 1511 Normal [facility] Alanine aminotransferase [En zymatic activity/volume] in Serum or PlasmaOrdered By: Tamera Randall on 10-25-2022 ALT [Catalytic activity/Vol] 16 U/L 7-52 [facility] Albumin [Mass/volume] in Ser um or Plasma by Bromocresol green (BCG) dye binding methoOrdered By: Tamera Randall on 10-25-2022 Albumin BCG dye [Mass/Vol] 4.4 g/dL 3.5-5.7 [facility] Alkaline phosphatase [Enzyma tic activity/volume] in Serum or PlasmaOrdered By: Tamera Randall on 10-25-2022 ALP [Catalytic activity/Vol] 72 U/L 34-104 [facility] Aspartate aminotransferase [ Enzymatic activity/volume] in Serum or PlasmaOrdered By: Tamera Randall on 10-25-2022 AST [Catalytic activity/Vol] 21 U/L 13-39 [facility] Basophils Auto (Bld) [#/Vol] Ordered By: Tamera Randall on 10-25-2022 Basophils (Bld) [#/Vol] 0.0 10*3/uL 0.0-0.2 [facility] Basophils/100 WBC Auto (Bld) Ordered By: Tamera Randall on 10-25-2022 Basophils/100 WBC (Bld) 0.7 % . [facility] Bilirubin.total [Mass/volume ] in Serum or PlasmaOrdered By: Tamera Randall on 10-25-2022 Bilirubin [Mass/Vol] 0.7 mg/dL 0.3-1.0 [facility] Calcium [Mass/volume] in Ser um or PlasmaOrdered By: Tamera Randall on 10-25-2022 Calcium [Mass/Vol] 9.2 mg/dL 8.6-10.3 [facility] Carbon dioxide, total [Moles /volume] in Serum or PlasmaOrdered By: Tamera Randall on 10-25-2022 CO2 [Moles/Vol] 27.0 mmol/L 21.0-31.[address] [facility] Chloride [Moles/volume] in S jl or PlasmaOrdered By: Tamera Randall on 10-25-2022 Chloride [Moles/Vol] 98 mmol/L 98-107 [facility] Creatinine [Mass/volume] in Serum or PlasmaOrdered By: Tamera Randall on 10-25-2022 Creatinine [Mass/Vol] 0.70 mg/dL 0.60-1.20 [facility] Eosinophils Auto (Bld) [#/Vo l]Ordered By: Tamera Randall on 10-25-2022 Eosinophils (Bld) [#/Vol] 0.2 10*3/uL 0.0-0.45 [facility] Eosinophils/100 WBC Auto (Bl d)Ordered By: Tamera Randall on 10-25-2022 Eosinophils/100 WBC (Bld) 3.2 % . [facility] Erythrocyte distribution wid th Auto (RBC) [Ratio]Ordered By: Tamera Randall on 10-25-2022 Erythrocyte distribution width (RBC) [Ratio] 13.5 % 11.9-15.3 [facility] Erythrocyte sedimentation ra te by Photometric methodOrdered By: Tamera Randall on 10-25-2022 ESR Photometric method (Bld) [Velocity] 23 mm/hr 0-29 [facility] Globulin Calc (S) [Mass/Vol] Ordered By: Tamera Randall on 10-25-2022 Globulin (S) [Mass/Vol] 2.5 g/dL [facility] Glucose [Mass/volume] in Ser um or PlasmaOrdered By: Tamera Randall on 10-25-2022 Glucose [Mass/Vol] 86 mg/dL 70-100 [facility] Comment on above: ADA recommended refe rence rangeRandom Glucose Reference Range is dependent on time and content of last meal. Glucose of more than 200 mg/dL in a nonstressed, ambulatory subject supports the diagnosis of Diabetes Mellitus. Hematocrit Auto (Bld) [Volum e fraction]Ordered By: Tamera Randall on 10-25-2022 Hematocrit (Bld) [Volume fraction] 35.7 % 34.0-46.4 [facility] Hemoglobin [Mass/volume] in BloodOrdered By: Tamera Randall on 10-25-2022 Hemoglobin (Bld) [Mass/Vol] 12.1 g/dL 11.8-15.4 [facility] Leukocytes [#/volume] correc taylor for nucleated erythrocytes in Blood by Automated counOrdered By: Tamera Randall on 10-25-2022 WBC corrected for nucl RBC Auto (Bld) [#/Vol] 4.9 10*3/uL 3.8-11.6 [facility] Lymphocytes Auto (Bld) [#/Vo l]Ordered By: Tamera Randall on 10-25-2022 Lymphocytes (Bld) [#/Vol] 1.4 10*3/uL 1.00-4.8 [facility] Lymphocytes/100 WBC Auto (Bl d)Ordered By: Tamera Randall on 10-25-2022 Lymphocytes/100 WBC (Bld) 28.5 % . [facility] MCH Auto (RBC) [Entitic mass ]Ordered By: Tamera Randall on 10-25-2022 MCH (RBC) [Entitic mass] 30.4 pg 24.7-34.3 [facility] MCHC Auto (RBC) [Mass/Vol]Or dered By: Tamera Randall on 10-25-2022 MCHC (RBC) [Mass/Vol] 33.9 g/dL 32.0-35.0 [facility] MCV Auto (RBC) [Entitic vol] Ordered By: Tamera Randall on 10-25-2022 MCV (RBC) [Entitic vol] 89.6 fL 80-100 [facility] Monocytes Auto (Bld) [#/Vol] Ordered By: Tamera Randall on 10-25-2022 Monocytes (Bld) [#/Vol] 0.4 10*3/uL 0.0-0.8 [facility] Monocytes/100 WBC Auto (Bld) Ordered By: Tamera Randall on 10-25-2022 Monocytes/100 WBC (Bld) 8.7 % . [facility] Neutrophils Auto (Bld) [#/Vo l]Ordered By: Tamera Randall on 10-25-2022 Neutrophils (Bld) [#/Vol] 2.9 10*3/uL 1.8-7.7 [facility] Neutrophils/100 WBC Auto (Bl d)Ordered By: Tamera Randall on 10-25-2022 Neutrophils/100 WBC (Bld) 58.9 % . [facility] No Panel InformationOrdered By: Tamera Randall on 10-25-2022 Estimated GFR (CKD-EPI) > 60.0 mL/Min [facility] Creatinine Clearance (Chem N/A [facility] Nucleated erythrocytes [Pres ence] in Blood by Automated countOrdered By: Tamera Randall on 10-25-2022 Nucleated RBC Auto Ql (Bld) 0.2 /100{WBC} 0-0.5 [facility] Platelet mean volume Auto (B ld) [Entitic vol]Ordered By: Tamera Randall on 10-25-2022 Platelet mean volume (Bld) [Entitic vol] 8.6 fL 6.3-10.7 [facility] Platelets Auto (Bld) [#/Vol] Ordered By: Tamera Randall on 10-25-2022 Platelets (Bld) [#/Vol] 266 10*3/uL 150-450 [facility] Potassium [Moles/volume] in Serum or PlasmaOrdered By: Tamera Randall on 10-25-2022 Potassium [Moles/Vol] 4.1 mmol/L 3.5-5.1 [facility] Protein [Mass/volume] in Ser um or PlasmaOrdered By: Tamera Randall on 10-25-2022 Protein [Mass/Vol] 6.9 g/dL 6.4-8.9 [facility] RBC Auto (Bld) [#/Vol]Ordere d By: Tamera Randall on 10-25-2022 RBC (Bld) [#/Vol] 3.99 10*6/uL 3.60-5.00 [facility] Serum or plasma albumin/glob ulin mass ratioOrdered By: Tamera Randall on 10-25-2022 Albumin/Globulin [Mass ratio] 1.8 {ratio} [facility] Serum or plasma anion gap de terminationOrdered By: Tamera Randall on 10-25-2022 Anion gap [Moles/Vol] 12.1 mmol/L 6.0-15.0 [facility] Sodium [Moles/volume] in Ser um or PlasmaOrdered By: Tamera Randall on 10-25-2022 Sodium [Moles/Vol] 133 mmol/L 136-145 [facility] Urea nitrogen [Mass/volume] in Serum or PlasmaOrdered By: Tamera Randall on 10-25-2022 Urea nitrogen [Mass/Vol] 15 mg/dL 7-25 [facility] WBC Auto (Bld) [#/Vol]Ordere d By: Tamera Randall on 10-25-2022 WBC (Bld) [#/Vol] 4.9 10*3/uL 3.8-11.6 [facility] XR Knee Complete Right*on XR Knee Complete Right* HISTORY: Posteri or knee pain with redness and swelling. COMPARISON: Radiograph 01/21/2019 TECHNIQUE: AP, lateral, and oblique views. FINDINGS: No acute fracture or dislocation. Joint spaces are maintained. Small joint effusion. Soft tissues are within normal limits. IMPRESSION: No acute osseous abnormality. Report reported and signed by Juan Wan on 07/19/2022 1225 Normal [facility] Doctor Of Optometry VITAMIN D 25 OHon 07-15-2022 VIT D 25-OH 55.7 ng/mL Normal [facility] Comment on above: Performed By: #### V ITAD #### [facility] [address] [place], [place] [address] Dr. Aniceto Elizondo VIT D RANGES SEE BELOW Normal [facility] Comment on above: Result Comment: <20 ng/mL Vit D deficient 20 - <30 ng/mL Vit D insufficient 30 - 100 ng/mL Vit D sufficient >100 ng/mL Potential Toxicity Performed By: #### V ITAD #### [facility] [address] [place], [place] [address] Dr. Aniceto Elizondo Albumin [Mass/volume] in Ser um or PlasmaOrdered By: Tamera Randall on 04-25-2022 Albumin [Mass/Vol] 4.0 g/dL 3.2-5.5 [facility] Basophils Auto (Bld) [#/Vol] Ordered By: Tamera Randall on 04-25-2022 Basophils (Bld) [#/Vol] 0.1 10*3/uL 0.0-0.2 [facility] Basophils/100 WBC Auto (Bld) Ordered By: Tamera Randall on 04-25-2022 Basophils/100 WBC (Bld) 1.1 % . [facility] Creatinine and Glomerular fi ltration rate.predicted panel (S/P/Bld)Ordered By: Tamera Randall on 04-25-2022 Creatinine [Mass/Vol] 0.64 mg/dL 0.44-1.03 [facility] Eosinophils Auto (Bld) [#/Vo l]Ordered By: Tamera Randall on 04-25-2022 Eosinophils (Bld) [#/Vol] 0.2 10*3/uL 0.0-0.45 [facility] Eosinophils/100 WBC Auto (Bl d)Ordered By: Tamera Randall on 04-25-2022 Eosinophils/100 WBC (Bld) 2.9 % . [facility] Erythrocyte distribution wid th Auto (RBC) [Ratio]Ordered By: Tamera Randall on 04-25-2022 Erythrocyte distribution width (RBC) [Ratio] 13.6 % 11.9-15.3 [facility] Erythrocyte sedimentation ra te by Photometric methodOrdered By: Tamera Randall on 04-25-2022 ESR Photometric method (Bld) [Velocity] 21 mm/hr 0-29 [facility] Estimated glomerular filtrat ion rate (GFR) non- AmericanOrdered By: Tamera Randall on 04-25-2022 GFR/1.73 sq M.predicted among non-blacks MDRD (S/P/Bld) [Vol rate/Area] > 60 mL/Min [facility] Globulin Calc (S) [Mass/Vol] Ordered By: Tamera Randall on 04-25-2022 Globulin (S) [Mass/Vol] 2.7 g/dL [facility] Hematocrit Auto (Bld) [Volum e fraction]Ordered By: Tamera Randall on 04-25-2022 Hematocrit (Bld) [Volume fraction] 35.1 % 34.0-46.4 [facility] Hemoglobin [Mass/volume] in BloodOrdered By: Tamera Randall on 04-25-2022 Hemoglobin (Bld) [Mass/Vol] 11.9 g/dL 11.8-15.4 [facility] - Hematology and Cell countsOrdered By: Tamera Randall on 04-25-2022 Nucleated RBC/100 WBC (Bld) [Ratio] 0.1 % 0-0.5 [facility] Leukocytes [#/volume] in Blo od by Automated countOrdered By: Tamera Randall on 04-25-2022 WBC (Bld) [#/Vol] 5.6 10*3/uL 4.5-11.0 [facility] Lymphocytes Auto (Bld) [#/Vo l]Ordered By: Tamera Randall on 04-25-2022 Lymphocytes (Bld) [#/Vol] 1.7 10*3/uL 1.00-4.8 [facility] Lymphocytes/100 WBC Auto (Bl d)Ordered By: Tamera Randall on 04-25-2022 Lymphocytes/100 WBC (Bld) 29.8 % . [facility] MCH Auto (RBC) [Entitic mass ]Ordered By: Tamera Randall on 04-25-2022 MCH (RBC) [Entitic mass] 30.7 pg 24.7-34.3 [facility] MCHC Auto (RBC) [Mass/Vol]Or dered By: Tamera Randall on 04-25-2022 MCHC (RBC) [Mass/Vol] 33.9 g/dL 32.0-35.0 [facility] MCV Auto (RBC) [Entitic vol] Ordered By: Tamera Randall on 04-25-2022 MCV (RBC) [Entitic vol] 90.6 fL 80-100 [facility] Monocytes Auto (Bld) [#/Vol] Ordered By: Tamera Randall on 04-25-2022 Monocytes (Bld) [#/Vol] 0.5 10*3/uL 0.0-0.8 [facility] Monocytes/100 WBC Auto (Bld) Ordered By: Tamera Randall on 04-25-2022 Monocytes/100 WBC (Bld) 8.4 % . [facility] Neutrophils Auto (Bld) [#/Vo l]Ordered By: Tamera Randall on 04-25-2022 Neutrophils (Bld) [#/Vol] 3.2 10*3/uL 1.8-7.7 [facility] Neutrophils/100 WBC Auto (Bl d)Ordered By: Tamera Randall on 04-25-2022 Neutrophils/100 WBC (Bld) 57.8 % . [facility] No Panel InformationOrdered By: Tamera Randall on 04-25-2022 Estimated GFR () > 60 mL/Min [facility] Comment on above: GFR estimated refere nce range: According to KDOQI guidelines, <60 ml/min/1.73m2 is sufficient to diagnose a patient with chronic kidney disease. Pharmacy Creatinine Clearance (Chem N/A [facility] Platelet mean volume Auto (B ld) [Entitic vol]Ordered By: Tamera Randall on 04-25-2022 Platelet mean volume (Bld) [Entitic vol] 8.7 fL 6.3-10.7 [facility] Platelets Auto (Bld) [#/Vol] Ordered By: Tamera Randall on 04-25-2022 Platelets (Bld) [#/Vol] 353 10*3/uL 150-450 [facility] Protein [Mass/volume] in Ser um or PlasmaOrdered By: Tamera Randall on 04-25-2022 Protein [Mass/Vol] 6.7 g/dL 6.1-7.9 [facility] RBC Auto (Bld) [#/Vol]Ordere d By: Tamera Randall on 04-25-2022 RBC (Bld) [#/Vol] 3.87 10*6/uL 3.60-5.00 [facility] Serum or plasma alanine craig otransferase measurement without P-5'-P (enzymatic activiOrdered By: Tamera Randall on 04-25-2022 ALT No additional P-5'-P [Catalytic activity/Vol] 23 U/L [facility] Serum or plasma albumin/glob ulin mass ratioOrdered By: Tamera Randall on 04-25-2022 Albumin/Globulin [Mass ratio] 1.5 {ratio} [facility] Serum or plasma alkaline lakisha sphatase measurement (enzymatic activity/volume)Ordered By: Tamera Randall on 04-25-2022 ALP [Catalytic activity/Vol] 72 U/L 32-92 [facility] Serum or plasma anion gap de terminationOrdered By: Tamera Randall on 04-25-2022 Anion gap [Moles/Vol] 14.0 mmol/L 6.0-15.0 [facility] Serum or plasma aspartate am inotransferase measurement (enzymatic activity/volume)Ordered By: Tamera Randall on 04-25-2022 AST [Catalytic activity/Vol] 26 U/L 1042 [facility] Serum or plasma calcium yvonne urement (mass/volume)Ordered By: Tamera Randall on 04-25-2022 Calcium [Mass/Vol] 9.8 mg/dL 8.2-10.2 [facility] Serum or plasma chloride elpidio surement (moles/volume)Ordered By: Tamera Randall on 04-25-2022 Chloride [Moles/Vol] 95 mmol/L 95-114 [facility] Serum or plasma glucose yvonne urement (mass/volume)Ordered By: Tamera Randall on 04-25-2022 Glucose [Mass/Vol] 92 mg/dL 70-100 [facility] Comment on above: ADA recommended refe rence rangeRandom Glucose Reference Range is dependent on time and content of last meal. Glucose of more than 200 mg/dL in a nonstressed, ambulatory subject supports the diagnosis of Diabetes Mellitus. Serum or plasma potassium me asurement (moles/volume)Ordered By: Tamera Randall on 04-25-2022 Potassium [Moles/Vol] 4.6 mmol/L 3.5-5.1 [facility] Serum or plasma sodium measu rement (moles/volume)Ordered By: Tamera Randall on 04-25-2022 Sodium [Moles/Vol] 130 mmol/L 136-146 [facility] Serum or plasma total biliru bin measurement (mass/volume)Ordered By: Tamera Randall on 04-25-2022 Bilirubin [Mass/Vol] 0.7 mg/dL 0.3-1.2 [facility] Serum or plasma total carbon dioxide measurement (moles/volume)Ordered By: Tamera Randall on 04-25-2022 CO2 [Moles/Vol] 25.6 mmol/L 22.0-30.[address] [facility] Serum or plasma urea nitroge n measurement (mass/volume)Ordered By: Tamera Randall on 04-25-2022 Urea nitrogen [Mass/Vol] 13 mg/dL 9-[address] [facility] [address] Abdomen/Pelvis w/ Contras ton 04-17-2022 CT [...] by Ky Carvalho on 04/17/2022 1540 Normal [facility] XR Abdomen 2 Viewson 022 XR [...] by Juan Wan on 04/10/2022 1614 Normal [facility] Covid-19 PCR (CVDTBH)on 02-05 SARS-CoV-2 (COVID-19) RNA NICOLASA+probe Ql (Unsp spec) Not detected Normal NOT DETECTED [facility] Comment on above: Result Comment: This test is not yet approved or cleared by the [place] FDA. When there are no FDA-approved or cleared tests available, and other criteria are met, FDA can make tests available under an emergency access mechanism called an Emergency Use Authorization (EUA). The EUA for this test is supported by the [place] of Health and Human Service's (HHS's) declaration [...] SARS-CoV-2. Performed By: #### C VDTBH #### [facility] [address] [place] [address] [address] Aniceto Elizondo LIPID PROFILEon 02-11-2022 CHOL-HDL RATIO NORM SEE BELOW Normal [facility] Comment on above: Result Comment: 3.3 - 4.4 LOW RISK 4.4 - 7.1 AVERAGE RISK 7.1 - 11.0 MODERATE RISK >11.0 HIGH RISK Performed By: #### L IPID, CMP #### [facility] [address] [place] [address] Dr. Aniceto Elizondo Cholesterol [Mass/Vol] 179 mg/dL Normal <=200 [facility] Comment on above: Performed By: #### L IPID, CMP #### [facility] [address] [place] [address] [address] Aniceto Elizondo Cholesterol in HDL [Mass/Vol] 44 mg/dL Normal 40-60 [facility] Comment on above: Performed By: #### L IPID, CMP #### [facility] [address] [place] [address] [address] Aniceto Elizondo Cholesterol in LDL [Mass/Vol] 94.2 mg/dL Normal [facility] Comment on above: Performed By: #### L IPID, CMP #### [facility] [address] [place] [address] Dr. Aniceto Elizondo Cholesterol.total/Joselyn sterol in HDL [Mass ratio] 4.1 {ratio} Normal [facility] Comment on above: Performed By: #### L IPID, CMP #### [facility] [address] [place] [address] [address] Aniceto Elizondo HDL NORMAL > or = 60 mg/dl - LO W CARDIOVASCULAR RISK <40 mg/dl - HIGH CARDIOVASCULAR RISK Normal [facility] Comment on above: Performed By: #### L IPID, CMP #### [facility] [address] [place] [address] Dr. Aniceto Elizondo LDL CALC NORMAL SEE BELOW Normal [facility] Comment on above: Result Comment: <100 mg/dl OPTIMAL 100 - 129 mg/dl NEAR OR ABOVE OPTIMAL 130 - 159 mg/dl BORDERLINE HIGH 160 - 189 mg/dl HIGH >190 mg/dl VERY HIGH Performed By: #### L IPID, CMP #### [facility] [address] [place] [address] Dr. Aniceto Elizondo Triglyceride [Mass/Vol] 204 mg/dL Critically high <=150 [facility] Comment on above: Performed By: #### L IPID, CMP #### [facility] [address] [place] [address] [address] Aniceto Elizondo VLDL CALC 40.8 mg/dL Normal [facility] Comment on above: Performed By: #### L IPID, CMP #### [facility] [address] [place] [address] [address] Aniceto Elizondo PROF 14(COMP METB)on 022 Albumin [Mass/Vol] 3.8 g/dL Normal 3.4-5.0 [facility] Comment on above: Performed By: #### L IPID, CMP #### [facility] [address] [place] [address] Dr. Aniceto Elizondo Albumin/Globulin [Mass ratio] 1.0 {ratio} Normal [facility] Comment on above: Performed By: #### L IPID, CMP #### [facility] [address] [place] [address] [address] Aniceto Elizondo ALP [Catalytic activity/Vol] 76 U/L Normal 46-116 [facility] Comment on above: Performed By: #### L IPID, CMP #### [facility] [address] [place] [address] [address] Aniceto Elizondo ALT [Catalytic activity/Vol] 24 U/L Normal 14-59 [facility] Comment on above: Performed By: #### L IPID, CMP #### [facility] [address] [place] [address] Dr. Aniceto Elizondo Anion gap [Moles/Vol] 14.2 mmol/L Normal [facility] Comment on above: Performed By: #### L IPID, CMP #### [facility] [address] [place] [address] Dr. Aniceto Elizondo AST [Catalytic activity/Vol] 25 U/L Normal 15-37 [facility] Comment on above: Performed By: #### L IPID, CMP #### [facility] [address] [place] [address] Dr. Aniceto Elizondo Bilirubin [Mass/Vol] 0.6 mg/dL Normal 0.2-1.0 [facility] [facility] Comment on above: Performed By: #### L IPID, CMP #### [facility] [address] [address] [address] Aniceto Elizondo Calcium [Mass/Vol] 9.1 mg/dL Normal 8.5-10.1 [facility] Comment on above: Performed By: #### L IPID, CMP #### [facility] [address] [place] [address] Dr. Aniceto Elizondo Chloride [Moles/Vol] 99 mmol/L Normal 98-107 [facility] Comment on above: Performed By: #### L IPID, CMP #### [facility] [address] [place] [address] Dr. Aniceto Elizondo CO2 [Moles/Vol] 28.3 mmol/L Normal 21.0-32.0 [facility] Comment on above: Performed By: #### L IPID, CMP #### [facility] [address] [address] [address] Aniceto Elizondo Creatinine [Mass/Vol] 0.64 mg/dL Normal 0.55-1.02 [facility] Comment on above: Performed By: #### L IPID, CMP #### [facility] [address] [place] [address] Dr. Aniceto Elizondo EGFR-AF JORDANIAN >60 Normal >=60 [facility] Comment on above: Performed By: #### L IPID, CMP #### [facility] [address] [place] [address] Dr. Aniceto Elizondo EGFR-NON AF JORDANIAN >60 Normal >=60 [facility] Comment on above: Performed By: #### L IPID, CMP #### [facility] [address] [address] [address] Aniceto Elizondo Globulin (S) [Mass/Vol] 3.7 g/dL Normal [facility] Comment on above: Performed By: #### L IPID, CMP #### [facility] [address] [place] [address] Dr. Aniceto Elizondo Glucose [Mass/Vol] 102 mg/dL Normal 74-106 [facility] Comment on above: Performed By: #### L IPID, CMP #### [facility] [address] [address] [address] Aniceto Elizondo Potassium [Moles/Vol] 4.5 mmol/L Normal 3.5-5.1 [facility] Comment on above: Performed By: #### L IPID, CMP #### [facility] [address] [place] [address] Dr. Aniceto Elizondo Protein [Mass/Vol] 7.5 g/dL Normal 6.4-8.2 [facility] Comment on above: Performed By: #### L IPID, CMP #### [facility] [address] [place] [address] Dr. Aniceto Elizondo Sodium [Moles/Vol] 137 mmol/L Normal 136-145 [facility] Comment on above: Performed By: #### L IPID, CMP #### [facility] [address] [address] [address] Aniceto Elizondo Urea nitrogen [Mass/Vol] 12.0 mg/dL Normal 7.0-18.0 [facility] Comment on above: Performed By: #### L IPID, CMP #### [facility] [address] [address] [address] Aniceot Elizondo Urea nitrogen/Creatinine [Mass ratio] 18.8 mg/mg Normal [facility] Comment on above: Performed By: #### L IPID, CMP #### [facility] [address] [place] [address] Dr. Aniceto Elizondo COVID-19 SOFIAOrdered By: Maritza Gutierrez on 01-29-2022 SARS-CoV+SARS-CoV-2 (COVID-19) Ag IA.rapid Ql (Resp) Negative Negative [facility] Comment on above: This is a duplicate Michelle SARS Antigen (DUNG) result to be used for statistical tracking purpose only. No Panel InformationOrdered By: Jordan Gutierrez on 01-29-2022 SARS Antigen (LFIA) [facility] HEMOGRAM AND PLATELon 2021 Hematocrit (Bld) [Volume fraction] 34.5 % Critically low 36.0-48.0 [facility] Comment on above: Performed By: #### H H #### [facility] [address] [place] [address] Dr. Aniceto Elizondo Hemoglobin (Bld) [Mass/Vol] 11.6 g/dL Critically low 12.0-16.0 [facility] Comment on above: Performed By: #### H H #### [facility] [address] [place] [address] Dr. Aniceto Elizondo MCH (RBC) [Entitic mass] 30.9 pg Normal 26.7-34.0 [facility] Comment on above: Performed By: #### H H #### [facility] [address] [address] [address] Aniceto Elizondo MCHC (RBC) [Mass/Vol] 33.6 g/dL Normal 29.9-35.2 [facility] Comment on above: Performed By: #### H H #### [facility] [address] [address] [address] Aniceto Elizondo MCV (RBC) [Entitic vol] 91.8 fL Normal 81.0-99.0 [facility] Comment on above: Performed By: #### H H #### [facility] [address] [address] [address] Aniceto Elizondo PLT 294 103/ul Normal 150-450 [facility] Comment on above: Performed By: #### H H #### [facility] [address] [place] [address] Dr. Aniceto Elizondo RBC 3.76 106/ul Critically low 4.20-5.40 [facility] Comment on above: Performed By: #### H H #### [facility] [address] [place] [address] Dr. Aniceto Elizondo WBC 6.0 103/ul Normal 4.0-11.0 [facility] Comment on above: Performed By: #### H H #### [facility] [address] [place] [address] Dr. Aniceto Elizondo MAGNESIUMon 11-21-2021 Magnesium [Mass/Vol] 2.2 mg/dL Normal 1.8-2.4 [facility] Comment on above: Performed By: #### U RAMON, RENAL, MG #### [facility] [address] [place] [address] Dr. Aniceto Elizondo RENAL FUNCTION PANELon 11-21 Albumin [Mass/Vol] 3.8 g/dL Normal 3.4-5.0 [facility] Comment on above: Performed By: #### U RAMON, RENAL, MG #### [facility] [address] [place] [address] Dr. Aniceto Elizondo Calcium [Mass/Vol] 8.9 mg/dL Normal 8.5-10.1 [facility] Comment on above: Performed By: #### U RAMON, RENAL, MG #### [facility] [address] [address] [address] Aniceto Elizondo Chloride [Moles/Vol] 97 mmol/L Critically low 98-107 [facility] Comment on above: Performed By: #### U RAMON, RENAL, MG #### [facility] [address] [address] [address] Aniceto Elizondo CO2 [Moles/Vol] 27.1 mmol/L Normal 21.0-32.0 [facility] Comment on above: Performed By: #### U RAMON, RENAL, MG #### [facility] [address] [address] [address] Aniceto Elizondo Creatinine [Mass/Vol] 0.66 mg/dL Normal 0.55-1.02 [facility] Comment on above: Performed By: #### U RAMON, RENAL, MG #### [facility] [address] [address] [address] Aniceto Elizondo EGFR-AF JORDANIAN >60 Normal >=60 [facility] Comment on above: Performed By: #### U RAMON, RENAL, MG #### [facility] [address] [address] [address] Aniceto Elizondo EGFR-NON AF JORDANIAN >60 Normal >=60 [facility] Comment on above: Performed By: #### U RAMON, RENAL, MG #### [facility] [address] [address] [address] Aniceto Elizondo Glucose [Mass/Vol] 101 mg/dL Normal 74-106 [facility] Comment on above: Performed By: #### U RAMON, RENAL, MG #### [facility] [address] [address] [address] Aniceto Elizondo Phosphate [Mass/Vol] 4.1 mg/dL Normal 2.6-4.7 [facility] Comment on above: Performed By: #### U RAMON, RENAL, MG #### [facility] [address] [address] [address] Aniceto Elizondo Potassium [Moles/Vol] 4.5 mmol/L Normal 3.5-5.1 [facility] Comment on above: Performed By: #### U RAMON, RENAL, MG #### [facility] [address] [place] [address] Dr. Aniceto Elizondo Sodium [Moles/Vol] 131 mmol/L Critically low 136-145 [facility] Comment on above: Performed By: #### U RAMON, RENAL, MG #### [facility] [address] [place] [address] Dr. Aniceto Elizondo Urea nitrogen [Mass/Vol] 16.0 mg/dL Normal 7.0-18.0 [facility] Comment on above: Performed By: #### U RAMON, RENAL, MG #### [facility] [address] [place] [address] Dr. Aniceto Elizondo UA RANDOM W/MICROSCOPICon BACTERIA NONE SEEN Normal NONE SEEN [facility] Comment on above: Performed By: #### U AMIC #### [facility] [address] [place] [address] Dr. Aniceto Elizondo Bilirubin Ql (U) Negative Normal NEGATIVE [facility] Comment on above: Performed By: #### U AMIC #### [facility] [address] [place] [address] Dr. Aniceto Elizondo CAST NONE SEEN Normal NONE SEEN [facility] Comment on above: Performed By: #### U AMIC #### [facility] [address] [place] [address] Dr. Aniceto Elizondo Clarity (U) CLEAR Normal CLEAR [facility] Comment on above: Performed By: #### U AMIC #### [facility] [address] [place] [address] Dr. Aniceto Elizondo Color (U) YELLOW Normal YELLOW [facility] Comment on above: Performed By: #### U AMIC #### [facility] [address] [place] [address] Dr. Aniceto Elizondo Crystals LM Nom (Urine sed) NONE SEEN Normal NONE SEEN [facility] Comment on above: Performed By: #### U AMIC #### [facility] [address] [place] [address] Dr. Aniceto Elizondo Epithelial cells LM Ql (Urine sed) FEW Abnormal NONE SEEN /RARE [facility] Comment on above: Performed By: #### U AMIC #### [facility] [address] [address] [address] Aniceto Elizondo Glucose Ql (U) Negative Normal NEGATIVE [facility] Comment on above: Performed By: #### U AMIC #### [facility] [address] [place] [address] Dr. Aniceto Elizondo Hemoglobin Ql (U) Negative Normal NEGATIVE [facility] Comment on above: Performed By: #### U AMIC #### [facility] [address] [address] [address] Aniceto Elizondo Ketones Ql (U) Negative Normal NEGATIVE [facility] Comment on above: Performed By: #### U AMIC #### [facility] [address] [place] [address] Dr. Aniceto Elizondo LEUKOCYTES Negative Normal NEGATIVE [facility] Comment on above: Performed By: #### U AMIC #### [facility] [address] [address] [address] Aniceto Elizondo MUCOUS NONE SEEN Normal NONE SEEN [facility] Comment on above: Performed By: #### U AMIC #### [facility] [address] [place] [address] Dr. Aniceto Elizondo Nitrite Ql (U) Negative Normal NEGATIVE [facility] Comment on above: Performed By: #### U AMIC #### [facility] [address] [address] [address] Aniceto Elizondo pH (U) 7.0 [pH] Normal 5-9 [facility] Comment on above: Performed By: #### U AMIC #### [facility] [address] [place] [address] Dr. Aniceto Elizondo RBC NONE SEEN Abnormal 0-2 [facility] Comment on above: Performed By: #### U AMIC #### [facility] [address] [place] [address] Dr. Aniceto Elizondo SPEC GRAVITY <=1.005 Abnormal 1.005-<=1.02 5 [facility] Comment on above: Performed By: #### U AMIC #### [facility] [address] [address] [address] Aniceto Elizondo UA PROTEIN Negative Normal NEGATIVE/ TRACE [facility] Comment on above: Performed By: #### U AMIC #### [facility] [address] [address] [address] Aniceto Elizondo Urobilinogen Qn (U) 0.2 {Ada'U}/dL Normal 0.2 - 1. 0 [facility] Comment on above: Performed By: #### U AMIC #### [facility] [address] [address] [address] Aniceto Elizondo WBC NONE SEEN Normal NONE SEEN [facility] Comment on above: Performed By: #### U AMIC #### [facility] [address] [place] [address] Dr. Aniceto Elizondo URIC ACID SERUMon 11-21-2021 Urate [Mass/Vol] 3.4 mg/dL Normal 2.6-6.0 [facility] Comment on above: Performed By: #### U RAMON, RENAL, MG #### [facility] [address] [address] [address] Aniceto Elizondo URINE T PROTEIN CREAT RATIOo n 11-21-2021 UR PROT CREAT RAT 0.40 Normal [facility] Comment on above: Performed By: #### U RTPCR #### [facility] [address] [address] [address] Aniceto Elizondo UR TOTAL PROTEIN <6.0 Normal <=12.0 [facility] Comment on above: Performed By: #### U RTPCR #### [facility] [address] [address] [address] Aniceto Elizondo URINE CREAT 14.89 mg/dL Critically low 20.00-300.00 [facility] Comment on above: Performed By: #### U RTPCR #### [facility] [address] [place] [address] Dr. Aniceto Elizondo VITAMIN D 25 OHon 11-21-2021 VIT D 25-OH 50.4 ng/mL Normal [facility] Comment on above: Performed By: #### V ITAD #### [facility] [address] [address] [address] Aniceto Elizondo VIT D RANGES SEE BELOW Normal [facility] Comment on above: Result Comment: <20 ng/mL Vit D deficient 20 - <30 ng/mL Vit D insufficient 30 - 100 ng/mL Vit D sufficient >100 ng/mL Potential Toxicity Performed By: #### V ITAD #### [facility] [address] [place], [place] [address] Dr. Aniceto Diaz 05-03-2021 RACIEL Office Visit (KANDACE ) ZEYNEP ABBASI ([id number]) 1950 F Date Time Provider Department 05/03/21 11:30 AM JOSE G WELLS During your visit today, we recorded the following information about you: Pulse Blood pressure 83/minute 182/94 Jose G Wells MD 05/04/2021 10:18 AM Unsigned Buckle Wire Inserter NAME: ZEYNEP ABBASI CLINIC NO: [id number] DATE OF SERVICE: 05/03/2021 DATE OF : [...] She has had an ultrasound done at [facility] that was done in February which still [...] Jose G Wells M.D. 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 THIS DOCUMENT IS NOT AVAILABLE FOR PATIENT CARE * * * Document text: NAME: ZEYNEP ABBASI CLINIC NO: [id number] DATE OF SERVICE: 05/03/2021 DATE OF : 1950 She is here to see me in follow-up for a le (more content not included)... [facility] ZEYNEP ABBASI ([id number]) 1950 F Date Time Provider Department 02/22/21 HUDSON CASTAÑEDA During your visit today, we recorded the following information about you: Shirley Shay 02/22/2021 2:43 PM Signed Reason for call: Mrs Abbasi called and she would like to schedule a follow up appointment with DR Wells , last seen 04/26/2019. Home and cell number : [phone] Diagnosis Renal Artery stenosis Kind Regards, Shirley [...] Status:Closed by SHIRLEY SHAY on 02/22/21 Normal [facility] Albumin [Mass/volume] in Ser um or Plasmaon 07-05-2020 Albumin [Mass/Vol] 4.2 g/dL 3.2-5.5 [facility] Automated basophil %on 07-05 Basophils/100 WBC (Bld) 0.6 % [facility] Automated basophil counton 1 Basophils (Bld) [#/Vol] 0.0 10*3/uL 0.0-0.2 [facility] Automated blood lymphocyte c ount (number/volume)on 07-05-2020 Lymphocytes (Bld) [#/Vol] 1.2 10*3/uL 1.00-4.8 [facility] Automated blood lymphocyte c ount as percentage of total leukocyteson 07-05-2020 Lymphocytes/100 WBC (Bld) 16.6 % [facility] Automated blood monocyte cou nton 07-05-2020 Monocytes (Bld) [#/Vol] 0.4 10*3/uL 0.0-0.8 [facility] Automated blood platelet cou nt (count/volume)on 07-05-2020 Platelets (Bld) [#/Vol] 282 10*3/uL 150-450 [facility] Automated blood platelet elpidio n volume measurementon 07-05-2020 Platelet mean volume (Bld) [Entitic vol] 8.7 fL 6.3-10.7 [facility] Automated eosinophil %on Eosinophils/100 WBC (Bld) 0.4 % [facility] Automated eosinophil counton 07-05-2020 Eosinophils (Bld) [#/Vol] 0.0 10*3/uL 0.0-0.45 [facility] Automated erythrocyte distri bution width ratioon 07-05-2020 Erythrocyte distribution width (RBC) [Ratio] 13.7 % 11.9-15.3 [facility] Automated erythrocyte mean c orpuscular hemoglobin (mass per erythrocyte)on 07-05-2020 MCH (RBC) [Entitic mass] 30.2 pg 24.7-34.3 [facility] Automated erythrocyte mean c orpuscular hemoglobin concentration measurement (mass/volon 07-05-2020 MCHC (RBC) [Mass/Vol] 33.1 g/dL 32.0-35.[address] [facility] Automated erythrocyte mean c orpuscular volumeon 07-05-2020 MCV (RBC) [Entitic vol] 91.1 fL 80-100 [facility] Automated monocyte %on 07-05 Monocytes/100 WBC (Bld) 5.3 % [facility] Automated neutrophil %on Neutrophils/100 WBC (Bld) 77.1 % [facility] Blood erythrocytes automated count (number/volume)on 07-05-2020 RBC (Bld) [#/Vol] 3.94 10*6/uL 3.60-5.00 [facility] Blood hemoglobin measurement (mass/volume)on 07-05-2020 Hemoglobin (Bld) [Mass/Vol] 11.9 g/dL 11.8-15.4 [facility] Blood leukocytes automated c ount (number/volume)on 07-05-2020 WBC (Bld) [#/Vol] 7.1 10*3/uL 4.5-11.0 [facility] Blood neutrophil count by au tomated method (number/volume)on 07-05-2020 Neutrophils (Bld) [#/Vol] 5.4 10*3/uL 1.8-7.7 [facility] Cholesterol [Mass/volume] in Serum or Plasmaon 07-05-2020 Cholesterol [Mass/Vol] 173 mg/dL 140-200 [facility] Comment on above: Chol less than 200 m g/dl low riskChol 201-239 mg/dl borderline riskChol 240 mg/dl and greater high risk Cholesterol in LDL [Mass/vol ume] in Serum or Plasma by calculationon 07-05-2020 Cholesterol in LDL [Mass/Vol] 93 mg/dL 0-100 [facility] Comment on above: LDL ATP III CLASSIFI CATIONLDL less than 100 mg/dL OptimalLDL 100-129 mg/dL Near or above optimalLDL 130-159 mg/dL Borderline highLDL 160-189 mg/dL HighLDL greater than 189 mg/dL Very high Cholesterol in VLDL [Mass/vo lume] in Serum or Plasma by calculationon 07-05-2020 Cholesterol in VLDL [Mass/Vol] 17 mg/dL [facility] Erythrocyte sedimentation ra te by Photometric methodon 07-05-2020 ESR Photometric method (Bld) [Velocity] 19 mm/hr 0-29 [facility] Estimated glomerular filtrat ion rate (GFR) non- Americanon 07-05-2020 GFR/1.73 sq M predicted among non-blacks MDRD (S/P/Bld) [Vol rate/Area] mL/min/{1.73_m2} [facility] Hematocrit [Volume Fraction] of Blood by Automated counton 07-05-2020 Hematocrit (Bld) [Volume fraction] 35.9 % 34.0-46.4 [facility] Otheron 07-05-2020 GFR/1.73 sq M.predicted MDRD (S/P/Bld) [Vol rate/Area] mL/min/{1.73_m2} [facility] Comment on above: GFR estimated refere nce range: According to KDOQI guidelines, <60 ml/min/1.73m2 is sufficient to diagnose a patient with chronic kidney disease. Nucleated RBC/100 WBC (Bld) [Ratio] 0.0 % 0-0.5 [facility] Creatinine Clearance (Chem N/A [facility] Protein [Mass/volume] in Ser um or Plasmaon 07-05-2020 Protein [Mass/Vol] 7.2 g/dL 6.1-7.9 [facility] Serum globulin measurement b y calculation (mass/volume)on 07-05-2020 Globulin (S) [Mass/Vol] 3.0 g/dL [facility] Serum or plasma alanine craig otransferase measurement without P-5'-P (enzymatic activion 07-05-2020 ALT No additional P-5'-P [Catalytic activity/Vol] 23 U/L 1060 [facility] Serum or plasma albumin/glob ulin mass ratioon 07-05-2020 Albumin/Globulin [Mass ratio] 1.4 {ratio} [facility] Serum or plasma alkaline lakisha sphatase measurement (enzymatic activity/volume)on 07-05-2020 ALP [Catalytic activity/Vol] 63 U/L 32-92 [facility] Serum or plasma aspartate am inotransferase measurement (enzymatic activity/volume)on 07-05-2020 AST [Catalytic activity/Vol] 27 U/L 10 [facility] Serum or plasma calcium yvonne urement (mass/volume)on 07-05-2020 Calcium [Mass/Vol] 9.4 mg/dL 8.2-10.2 [facility] Serum or plasma chloride elpidio surement (moles/volume)on 07-05-2020 Chloride [Moles/Vol] 96 mmol/L 95-114 [facility] Serum or plasma creatinine m easurement with calculation of estimated glomerular filtron 07-05-2020 Creatinine [Mass/Vol] 0.64 mg/dL 0.44-1.03 [facility] Serum or plasma glucose yvonne urement (mass/volume)on 07-05-2020 Glucose [Mass/Vol] 114 mg/dL 70-100 [facility] Comment on above: ADA recommended refe rence rangeRandom Glucose Reference Range is dependent on time and content of last meal. Glucose of more than 200 mg/dL in a nonstressed, ambulatory subject supports the diagnosis of Diabetes Mellitus. Serum or plasma high density lipoprotein (HDL) cholesterol measurementon 07-05-2020 Cholesterol in HDL [Mass/Vol] 63 mg/dL 35-85 [facility] Comment on above: HDL CHOL ATP-III CLA SSIFICATION Cardiovascular RiskHDL > or equal to 60 mg/dL LOWHDL < 40 mg/dL HIGH Serum or plasma potassium me asurement (moles/volume)on 07-05-2020 Potassium [Moles/Vol] 3.9 mmol/L 3.5-5.1 [facility] Serum or plasma sodium measu rement (moles/volume)on 07-05-2020 Sodium [Moles/Vol] 131 mmol/L 136-146 [facility] Serum or plasma total biliru bin measurement (mass/volume)on 07-05-2020 Bilirubin [Mass/Vol] 0.6 mg/dL 0.3-1.2 [facility] Serum or plasma total carbon dioxide measurement (moles/volume)on 07-05-2020 CO2 [Moles/Vol] 24.3 mmol/L 22.0-30.0 [facility] Serum or plasma total choles terol/high density lipoprotein (HDL) cholesterol mass ashok 07-05-2020 Cholesterol.total/Joselyn sterol in HDL [Mass ratio] 2.7 {ratio} [facility] Serum or plasma urea nitroge n measurement (mass/volume)on 07-05-2020 Urea nitrogen [Mass/Vol] 15 mg/dL 9-23 [facility] Triglyceride [Mass/volume] i n Serum or Plasmaon 07-05-2020 Triglyceride [Mass/Vol] 86 mg/dL 35-149 [facility] Comment on above: TRIG ATP III CLASSIF ICATIONTRIG less than 150 mg/dL NormalTRIG 150-199 mg/dL Borderline highTRIG 200-500 mg/dL High TRIG greater than 500 mg/dL Very highStandard traceable to the Center for Disease Conrtrol and Prevention (CDC) test method. Coding Summary.on 06-19-2018 Coding Summary. CODING DATE: 06/19/2018 FINAL [facility] DSC STATUS: Home (Routine DC) PAYOR: Medicare APC [...] Revised Date Saved: 06/19/2018 01:41 pm Normal [facility] Main OR Intraoperative Recor leela 06-18-2018 Main OR Intraoperative Record IntraOp Document Type FTURO Summary Primary Physician: Khadar Begum Jr., MD Finalized Date/Time: 06/18/18 14:22:44 Pt. Name: ZEYNEP ABBASI./Sex: 1950 Female Med Rec #: [id number] Physician: Khadar Begum Jr., MD Financial #: [id number] Pt. Type: O Room/Bed: / Admit/Disch: 06/18/18 13:04:11 - Institution: Case Times FTURO Entry 1 Patient Times In Room 06/18/18 14:16:00 Out Room 06/18/18 14:22:00 Procedure Times Start 06/18/18 14:18:00 Stop 06/18/18 14:20:00 Anesthesia Times Last Modified By: Barrera SIMON, RN, Heather 06/18/18 14:20:03 Case Attendance FTURO Entry 1 Entry 2 Entry 3 Case Attendee Kel Lehman MD, Khadar SIMON, RN, [facility], Latasha Romero Role Performed Surgeon - Primary Double End Tenoner Operator - Primary Scrub - Primary Time In [...] RN, Kelly 06/18/18 14:22 Barrera SIMON RN, Kelly 06/18/18 14:22 Normal [facility] Main OR Preoperative Recordo n 06-18-2018 Main OR Preoperative Record Holding Area Document Type FTURO Summary Primary Physician: Khadar Begum Jr., MD Finalized Date/Time: 06/18/18 13:22:18 Pt. Name: ZEYNEP ABBASI /Sex: 1950 Female Med Rec #: [id number] Physician: Khadar Begum Jr., MD Financial #: [id number] Pt. Type: O Room/Bed: / Admit/Disch: 06/18/18 [...] Pain: No Comment: pr Skin Integrity Intact, Heartwell, Warm, & Dry Vitals - EU Blood Pressure 155/79 Pulse 78 bpm Respirations 18 br/min SPO2 Last Modified By: Maryan Cortes LPN 06/18/18 13:22:13 Finalized By: Maryan Cortes LPN Document Signatures Signed By: Maryan Cortes LPN 06/18/18 13:22 Normal [facility] Operative Reporton 8 Operative Report Patient: YVAN [...] urine. The Urethra was dilated to: 26 Kinyarwanda w/ sounds. Devices Implanted: None. Removal: Cystoscope is removed, The patient tolerated it well. Postoperative Information Discharge: Patient is discharged home with antibiotic coverage, Follow up arranged. Normal [facility] Comment on above: Result Comment: Elec tronically Signed By: Khadar Begum Jr., MD\.br\Date and Time Signed: 06/18/18 14:22 EST Vital Signs Date Time Vital Sign Value Performing Clinician Facility 11-28-2023 13:44-0400 Body height 175.26 cm MD Hudson Castañeda Work Phone: [facility] 11-28-2023 13:44-0400 Body mass index (BMI) [Ratio] 25.5 kg/m2 MD Hudson Castañeda Work Phone: [facility] 11-28-2023 13:44-0400 Body temperature 98.1 [degF] MD Hudson Castañeda Work Phone: [facility] 11-28-2023 13:44-0400 Body weight 78.52 kg MD Hudson Castañeda Work Phone: [facility] 11-28-2023 13:44-0400 Diastolic blood pressure 71 mm[Hg] MD Hudson Castañeda Work Phone: [facility] 11-28-2023 13:44-0400 Heart rate 69 /min MD Hudson Castañeda Work Phone: [facility] 11-28-2023 13:44-0400 Respiratory rate 18 /min MD Hudson Castañeda Work Phone: [facility] 11-28-2023 13:44-0400 SaO2% (BldA) [Mass fraction] 95 % MD Hudson Castañeda Work Phone: [facility] 11-28-2023 13:44-0400 Systolic blood pressure 128 mm[Hg] MD Hudson Castañeda Work Phone: [facility] 11-13-2023 11:00-0400 Body height 175.26 cm MD Hudson Castañeda Work Phone: [facility] 11-13-2023 11:00-0400 Body mass index (BMI) [Ratio] 25.5 kg/m2 MD Hudson Castañeda Work Phone: [facility] 11-13-2023 11:00-0400 Body temperature 96.5 [degF] MD Hudson Castañeda Work Phone: [facility] 11-13-2023 11:00-0400 Body weight 78.58 kg MD Hudson Castañeda Work Phone: [facility] 11-13-2023 11:00-0400 Diastolic blood pressure 70 mm[Hg] MD Hudson Castañeda Work Phone: [facility] 11-13-2023 11:00-0400 Heart rate 72 /min MD Hudson Castañeda Work Phone: [facility] 11-13-2023 11:00-0400 Respiratory rate 16 /min MD Hudson Castañeda Work Phone: [facility] 11-13-2023 11:00-0400 SaO2% (BldA) [Mass fraction] 98 % MD Hudson Castañeda Work Phone: [facility] 11-13-2023 11:00-0400 Systolic blood pressure 130 mm[Hg] MD Hudson Castañeda Work Phone: [facility] 12-05-2022 11:00-0400 Body height 175.26 cm Gonsalo You Other [facility] Other 12-05-2022 11:00-0400 Body mass index (BMI) [Ratio] 25.75 kg/m2 Gonsalo You Other [facility] Other 12-05-2022 11:00-0400 Body temperature 96.6 [degF] Gonsalo You Other [facility] Other 12-05-2022 11:00-0400 Body weight 79.11 kg Gonaslo You Other [facility] Other 12-05-2022 11:00-0400 Diastolic blood pressure 72 mm[Hg] Gonsalo You Other [facility] Other 12-05-2022 11:00-0400 Respiratory rate 18 /min Gonsalo You Other [facility] Other 12-05-2022 11:00-0400 SaO2% (BldA) [Mass fraction] 98 % Gonsalo You Other [facility] Other 12-05-2022 11:00-0400 Systolic blood pressure 139 mm[Hg] Gonsalo You Other [facility] Other 01-31-2022 09:30-0400 Diastolic blood pressure 78 mm[Hg] MD Hudson Castañeda Work Phone: [facility] 01-31-2022 09:30-0400 Heart rate 69 /min MD Hudson Castañeda Work Phone: [facility] 01-31-2022 09:30-0400 Respiratory rate 16 /min MD Hudson Castañeda Work Phone: [facility] 01-31-2022 09:30-0400 SaO2% (BldA) [Mass fraction] 99 % MD Hudson Castañeda Work Phone: [facility] 01-31-2022 09:30-0400 Systolic blood pressure 124 mm[Hg] MD Hudson Castañeda Work Phone: [facility] 01-31-2022 08:00-0400 Body height 175.26 cm MD Hudson Castañeda Work Phone: [facility] 01-31-2022 08:00-0400 Body temperature 98.5 [degF] MD Hudson Castañeda Work Phone: [facility] 01-31-2022 08:00-0400 Body weight 74.84 kg MD Hudson Castañeda Work Phone: [facility] 11-29-2021 11:20-0400 Body height 175.26 cm Gonsalo You Other [facility] Other 11-29-2021 11:20-0400 Body mass index (BMI) [Ratio] 26.25 kg/m2 Gonsalo You Other [facility] Other 11-29-2021 11:20-0400 Body temperature 96.5 [degF] Gonsalo You Other [facility] Other 11-29-2021 11:20-0400 Body weight 80.65 kg Gonsalo You Other [facility] Other 11-29-2021 11:20-0400 Diastolic blood pressure 90 mm[Hg] Gonsalo You Other [facility] Other 11-29-2021 11:20-0400 Respiratory rate 18 /min Gonsalo You Other [facility] Other 11-29-2021 11:20-0400 SaO2% (BldA) [Mass fraction] 95 % Gonsalo You Other [facility] Other 11-29-2021 11:20-0400 Systolic blood pressure 160 mm[Hg] Gonsalo You Other [facility] Other Encounters Encounter Date Encounter Type Care Provider Facility Start: 11-28-2023 End: 11-28-2023 ambulatory MD Hudson Castañeda Work Phone: [facility] Work Phone: Start: 11-28-2023 End: 11-28-2023 Patient encounter procedure MD Hudson Castañeda Work Phone: [facility] Jose Luis Work Phone: Start: 11-25-2023 End: 11-26-2023 ambulatory [facility] Start: 11-13-2023 End: 11-13-2023 ambulatory MD Hudson Castañeda Work Phone: [facility] Work Phone: Start: 11-13-2023 End: 11-13-2023 Patient encounter procedure MD Hudson Castañeda Work Phone: [facility] Jose Luis Work Phone: Start: 11-11-2023 End: 11-11-2023 ambulatory OLIVE DODSON Not Available Start: 11-03-2023 End: 11-03-2023 ambulatory [facility] Start: 10-27-2023 End: 10-27-2023 ambulatory Tamera Randall Facility:[facility] Start: 10-27-2023 End: 10-27-2023 ambulatory MD Hudson Castañeda Work Phone: [facility] Work Phone: Start: 10-27-2023 End: 10-27-2023 Patient encounter procedure MD Hudson Castañeda Work Phone: [facility] [address] Work Phone: Start: 10-17-2023 End: 10-18-2023 ambulatory [facility] Start: 05-08-2023 End: 05-08-2023 ambulatory Gonsalo You Other [facility] [employer] Other Start: 05-08-2023 Telephone encounter Gonsalo Birchr [facility] Start: 04-29-2023 End: 04-29-2023 ambulatory Hudson Castañeda Facility:[facility] Start: 04-29-2023 End: 04-29-2023 ambulatory MD Hudson Castañeda Work Phone: [facility] Work Phone: Start: 04-29-2023 End: 04-29-2023 Patient encounter procedure MD Hudson Castañeda Work Phone: [facility] [address] Work Phone: Start: 01-08-2023 End: 01-08-2023 ambulatory José Luis Brennan Facility:[facility] Start: 01-08-2023 End: 01-08-2023 ambulatory MD Hudson Castañeda Work Phone: [facility] Work Phone: Start: 01-08-2023 End: 01-08-2023 Patient encounter procedure MD Hudson Castañeda Work Phone: [facility] Work Phone: Start: 12-05-2022 End: 12-05-2022 ambulatory Gonsalo You Other [facility] [employer] Other Start: 12-05-2022 Office outpatient visit 25 minutes Gonsalo You [facility] Jose Luis Start: 10-29-2022 End: 10-29-2022 ambulatory Torie Stafford Facility:[facility] Start: 10-29-2022 End: 10-29-2022 ambulatory MD Hudson Castañeda Work Phone: [facility] Work Phone: Start: 10-29-2022 End: 10-29-2022 Patient encounter procedure MD Hudson Castañeda Work Phone: [facility] [address] Work Phone: Start: 10-25-2022 End: 10-25-2022 Patient encounter procedure MD Hudson Castañeda Work Phone: [facility] Start: 07-15-2022 End: 07-16-[address] TAMERA RANDALL Facility: Start: 05-20-2022 End: 05-20-2022 ambulatory Gonsalo You Other [facility] [employer] Other Start: 05-20-2022 Telephone encounter Gonsalo You [facility] Start: 04-25-2022 End: 04-25-2022 ambulatory MD Hudson Castañeda Work Phone: [facility] Work Phone: Start: 04-25-2022 End: 04-25-2022 Patient encounter procedure MD Hudson Castañeda Work Phone: [facility] [address] Start: 02-26-2022 End: 02-26-[address] HUDSON CASTAÑEDA Facility:[facility] Start: 02-11-2022 End: 02-12-[address] HUDSON CASTAÑEDA Facility:[facility] Start: 01-31-2022 End: 01-31-2022 Admission to same day surgery center MD Hudson Castañeda Work Phone: [facility] Start: 01-29-2022 End: 01-29-2022 Patient encounter procedure MD Hudson Castañeda Work Phone: [facility]Pre-Surgical [facility] Start: 01-08-2022 End: 01-08-2022 ambulatory Jordan Gutierrez Other [facility] Other Start: 01-08-2022 Telephone encounter Jordan CHAMORRO [employer] Start: 12-10-2021 End: 12-10-2021 Patient encounter procedure MD Hudson [facility] Start: 11-29-2021 End: 11-29-2021 ambulatory Gonsalo You Other [facility] Other Start: 11-29-2021 Office outpatient visit 15 minutes Gonsalo You [facility] Jose Luis Start: 11-21-2021 End: 11-22-2021 ambulatory GONSALO YOU Facility:[facility] Start: 07-28-2020 End: 07-28-2020 Patient encounter procedure Hudson Castañeda [facility] Start: 07-05-2020 End: 07-05-2020 Patient encounter procedure Hudson Castañeda -[facility] [address] Start: 06-18-2018 End: 06-19-2018 Patient encounter procedure Juan Shirley Facility:[facility] Procedures Date Procedure Procedure Detail Performing Clinician [...] Date Care Activity Detail Author Start: 01-31-2022 [facility] Renal function 2000 panel - Serum or Plasma [facility] Immunizations Immunization Date Immunization Notes Care Provider Fa cility 04-21-2021 COVID-19 mRNA Comirtera (Pfizer) MD Hudson Castañeda Work Phone: [facility] 08-26-2020 COVID-19 Daryn Tracey (Pfizer) MD Hudson Castañeda Work Phone: [facility] 08-05-2020 COVID-19 mRNADaryn (Pfizer) MD Hudson Castañeda Work Phone: [facility] Payers Date Payer Category Payer Self-pay [id number] 2015 Medicare [id number] 2013 Unknown [id number] 1959 Medicare [id number] 1959 Unknown [id number] 1950 Unknown [id number] 2.16.84 [id number] 1950 Unknown [id number] 2.16.84 [id number] 1950 Unknown [id number] 2.16.84 0.1.349602.3.579.2.593 1950 Unknown [id number] 2.16.84 0.1.654019.3.579.2.593 1950 Unknown [id number] 2.16.84 0.1.542338.3.579.2.593 1950 Unknown [id number] 2.16.8 40.1.226733.3.579.2.1286 1950 Unknown [id number] 2.16.84 0.1.876564.3.579.2.1259 1950 Unknown [id number] 2.16.8 40.1.227442.3.579.2.1286 1950 Unknown [id number] 2.16.8 40.1.675935.3.579.2.1286 Unknown [id number] 2.16.8 40.1.330324.3.579.2.531 Unknown [id number] 2.16.8 40.1.803964.3.579.2.531 Unknown [id number] 2.16.8 40.1.247443.3.579.2.531 Unknown [id number] 2.16.8 40.1.116780.3.579.2.531 Social History Date Type Detail Facility Tobacco smoking status [facility] Unknown if ever smoked [facility] Start: 1950 Sex Assigned At Female F [facility] Sex Assigned At Sex Assigned At Bir th [facility] Other Start: 01-31-2022 End: 11-13-2023 Tobacco smoking status VTIS Ex-smoker (finding) [facility] Goals Date Patient Goal Desired Activity /State [...] within the goal. Will check Iron studies. [facility] Other 01-13-2023 NoteHISTORY: Knee pain TECHNIQUE: Duplex [...] signed by Juan Wan on 07/19/2022 [id number] Evaluation note* Encounter Date Diagnosis Assessment Notes Treatment Notes Treatment Clinical Notes Jan, Screening for colon cancer (ICD-10 - Z12.11) [facility] Other 05-26-2022 Evaluation note* Encounter Date Diagnosis [...] Colonoscopy . Advised her to schedule it [facility] Other [id number] NoteHNO ID: [id number] Author: Jose G Wells MD Service: Vascular Surgery Author Type: Physician Type: Progress Notes Filed: 05/07/2021 7:30 AM Note Text: NAME: ZEYNEP ABBASI [facility] NO: [id number] DATE OF SERVICE: 05/03/2021 DATE OF : [...] She has had an ultrasound done at [facility] that was done in February which still [...] Jose G Wells M.D. SPL/089 Audio #: [id number] Date Dictated: 04/19/2021 23:17:18 Date Typed: 05/03/2021 14:30:58 Date Revised: 05/03/2021 16:03:18[facility]10-28-2021 NoteHNO ID: [id number] Author: Jose G Wells MD Service: ? Author Type: Physician Type: Progress Notes Filed: 05/03/2021 11:53 AM Note Text: Here for f/u of unilateral renal artery stenosis with well-controlled hypertension Heart , V[facility] Thor[facility] DEPARTMENT OF VASCULAR SURGERY OUTPATIENT VISIT DATE [...] TIME OF SERVICE: 11:20 AM [facility]No assessment information availableF[facility] Work Phone: Evaluation noteNo InformationNort ExtraFootie Other Evaluation note* Diagnosis Onset Date Resolution Status Chronic hyponatremia acute Hypercholesterolemia acute Renal artery stenosis acute Renovascular hypertension ac olamide Rheumatoid arthritis acute Vitamin D deficiency acute [facility] Work Phone: History and physical note Author Jordan Gutierrez [facility] January 31, 2022 8:44am Note Date/Time January 31, 2022 8:44 am [facility] [address] [place] [address] Gastroenterology H&P Signed Patient: Zeynep Abbasi MR#: [id number] : 1950 Acct:[id number] Age/Sex: 71 / F Adm Date: 2 Loc: Room: Type: [employer] Attending Dr: Jordan Gutierrez MD Copies to: [...] signed by Jordan Gutierrez MD> 01/31/22 0844 [facility] Work Phone: [employer] [facility] Narrative - Reported* Type Description Date [...] Hospitalization History SCIATIC RIGHT SIDE PAIN 05/2018 [facility] Other History general Narrative - Reported* Type [...] Hospitalization History SCIATIC RIGHT SIDE PAIN 05/2018 [facility] Other Summary Purpose Family History Relationship Condition Age at Onset Recorded Date/T javon sister Malignant neoplasm of ovary Unknown father Leukemia Unknown Relationship Condition Age at Onset Recorded Date/T javon sister Malignant neoplasm of ovary Unknown father Leukemia Unknown father Malignant neoplasm Unknown Unknown Hypertension Unknown Not Specified Unknown Family history of mental disorder Unknown sister History of ovarian cancer Unknown Malignant neoplasm Unknown Advance Directives Advance Directive Response Recorded Date/ Time Advance [...] Renovascular hypertension Rheumatoid arthritis Vitamin D deficiency Chief Complaint See order RENAL 1 yr f/u Right side low back pain radiating to leg Reason for Visit Chronic hyponatremia Hypercholesterolemia Renal artery stenosis Renovascular hypertension Rheumatoid arthritis Vitamin D deficiency Assessments No Assessments Information AvailableNo Assessments Information Available Additional Source Comments INFORMATION SOURCE (unrecogn ized section and content) DATE CREATED AUTHOR 06/21/2018 [place] [facility] DATE CREATED AUTHOR AUTHOR'S ORGANIZ ATION 08/11/2021 [facility] DATE CREATED AUTHOR AUTHOR'S ORGANIZ ATION 07/18/2022 [facility] DATE CREATED AUTHOR AUTHOR'S ORGANIZ ATION 07/19/2022 [facility] DATE CREATED AUTHOR AUTHOR'S ORGANIZ ATION 10/28/2023 [facility] DATE CREATED AUTHOR AUTHOR'S ORGANIZ ATION 11/04/2023 [facility] DATE CREATED AUTHOR AUTHOR'S ORGANIZ ATION 11/12/2023 [facility] d[facility] Specialists EPIC DATE CREATED AUTHOR AUTHOR'S ORGANIZ ATION 11/27/2023 [facility] REASON FOR VISIT (unrecogniz ed section and [...] November 13, 2023 End: November 13, 2023 Team Status: Inactive Member Role Status Dates Hudson Castañeda MD Primary Care Provider Active Start: November 28, 2023 End: November 28, 2023 Antonia Adams APRN Attending Provider Active S tart: November 28, 2023 End: November 28, 2023 Goals (unrecognized section and content) Goals [...] BE BASED ON THE PRIMARY CLINICAL RECORDS. [facility] [employer] [facility]. provides no warranty or guarantee of the accuracy or completeness of information in this document.
--- NOTE | 2023-11-29 19:15 | XR_ITS ---
The [address] [address] Patient Name: SUJATHA HA MRN: [id number] date: 1950 Sex: F Assigned Patient Location: ER Current Patient Location: ER Accession/Order Number: [id number] Exam Date: 11/29/2023 19:45 Report Date: 11/29/2023 21:19 At the request of: MEE LAWRENCE Procedure: XR lumbar spine 2-3V EXAM: XR lumbar spine 2-3V HISTORY: Atraumatic pain, history of sciatica COMPARISON: None. TECHNIQUE: 3 views of the lumbar spine FINDINGS: There is a limited examination due to suboptimal patient positioning for the lateral view. Normal lordotic curvature of the lumbar spine is seen. The lumbar vertebral bodies demonstrate grossly normal height and alignment. No definite acute fracture seen. The paraspinal soft tissues appear unremarkable. Large joint of stool is seen in the visualized colon. XR/XR lumbar spine 2-3V IMPRESSION: No acute fracture or traumatic malalignment. Large volume of stool seen in the colon. Electronically authenticated by: CHRISTIANO THOMPSON Date: 11/29/2023 21:19
--- NOTE | 2023-11-29 19:17 | ED_ITS ---
HPI HPI - Back Pain/Injury General Chief Complaint: Back Pain/Injury Stated Complaint: back pain Time Seen by Provider: 11/29/23 18:04 Source: patient Mode of arrival: Wheelchair Limitations: no limitations History of Present Illness HPI Narrative: 73-year-old female presents for right lower back pain which goes down the leg. She believes it is sciatica. She has a history of sciatica and this time it began 5 days ago. A few days ago she was at an urgent care and then last night she was here in the emergency department. At that time she had blood drawn and she was sent home with 4 [place] tablets. She states she has not had x-rays in a year. No trauma or weakness or numbness in her leg. Related Data Home Medications ?Medication ?Instructions ?Recorded ?Confirmed amlodipine 5 mg tablet 10 mg PO DAILY 11/29/23 11/29/23 atorvastatin 20 mg tablet 20 mg PO DAILY 11/29/23 11/29/23 colchicine 0.6 mg tablet 0.6 mg PO DAILY PRN gout 11/29/23 11/29/23 cyclobenzaprine 10 mg tablet 10 mg PO DAILY 11/29/23 11/29/23 fluticasone propionate 50 1 spray intranasal DAILY 11/29/23 11/29/23 mcg/actuation nasal spray,suspension gabapentin 100 mg capsule 100 mg PO Q12H 11/29/23 11/29/23 lidocaine 5 % topical patch 1 patch topical Q24H PRN pain 11/29/23 11/29/23 losartan 100 mg tablet 100 mg PO DAILY 11/29/23 11/29/23 prednisone 5 mg tablet 10 mg PO DAILY PRN flare ups 11/29/23 11/29/23 zolpidem 10 mg tablet 10 mg PO DAILY 11/29/23 11/29/23 Allergies Allergy/AdvReac Type Severity Reaction Status Date / Time No Known Drug Allergies Allergy Verified 11/29/23 01:40 Opioid HPI Opioid Management Most Recent Opioid Data: Last Pain Scale 6 11/29/23 19:23 Last ED Pain Assessment 11/29/23 01:49 Last MAR Pain Assessment 11/29/23 19:23 Review of Systems ROS Narrative A ten point review of systems is negative except as noted above. Exam Narrative Exam Narrative: Nurses note and vital signs reviewed and patient is not hypoxic. General: The patient appears in no apparent distress. Patient is resting comfortably on cart. Skin: Warm, dry, no pallor noted. There is no rash noted. Head: Normocephalic, atraumatic Eye: Normal conjunctiva, no drainage Ears, Nose, Mouth, and Throat: oral mucosa is moist. Nares patent. Cardiovascular: Regular Rate and Rhythm Respiratory: Patient is in no distress, no accessory muscle use, lungs are clear to auscultation, no wheezing, rales or rhonchi Back: No bruise rash or tenderness to her back GI: Soft and Musculoskeletal: The patient has no evidence of calf tenderness, symmetrical pulses noted bilaterally Neurological: A&O, normal speech Psychiatric: Cooperative Constitutional Vital Signs, click to edit/add: Last Vital Signs Temp 98.6 F 11/29/23 16:21 Pulse 76 11/29/23 16:21 Resp 20 11/29/23 16:21 BP 168/86 H 11/29/23 16:21 Pulse Ox 97 11/29/23 16:21 Course Vital Signs Vital signs: Vital Signs Temperature 98.6 F 11/29/23 16:21 Pulse Rate 76 11/29/23 16:21 Respiratory Rate 20 11/29/23 16:21 Blood Pressure 168/86 H 11/29/23 16:21 Pulse Oximetry 97 11/29/23 16:21 Temperature 98.6 F 11/29/23 16:21 Pulse Rate 76 11/29/23 16:21 Respiratory Rate 20 11/29/23 16:21 Blood Pressure 168/86 H 11/29/23 16:21 Pulse Oximetry 97 11/29/23 16:21 MDM - Back Pain/Injury MDM Narrative Medical decision making narrative: Lumbar films showed no acute findings in the spine but do show constipation. She was given Dulcolax here and is being discharged home. She will follow-up with her PCP. Treatment diagnosis and follow-up were discussed with the patient. Differential Diagnosis Differential diagnosis: Likely lumbar radiculopathy and sciatica Imaging Data X-ray lumbar: Radiologist's impression: ITS Impressions Lumbar Spine X-Ray 11/29/23 19:15 IMPRESSION: No acute fracture or traumatic malalignment. Large volume of stool seen in the colon. Electronically authenticated by: CHRISTIANO THOMPSON Date: 11/29/2023 21:19 Discharge Plan Discharge Stand Alone Forms: Portal Instructions Chief Complaint: Back Pain/Injury Clinical Impression: Sciatica, Constipation Patient Disposition: Home, Self-Care Time of Disposition Decision: 21:29 Condition: Good Mode of Transportation: Private Vehicle Prescriptions / Home Meds: No Action amlodipine 5 mg tablet 10 mg PO DAILY atorvastatin 20 mg tablet 20 mg PO DAILY colchicine 0.6 mg tablet 0.6 mg PO DAILY PRN (Reason: gout) cyclobenzaprine 10 mg tablet 10 mg PO DAILY Rx Instructions: at HS fluticasone propionate 50 mcg/actuation spray,suspension 1 spray INTRANASAL DAILY gabapentin 100 mg capsule 100 mg PO Q12H lidocaine 5 % adhesive patch,medicated 1 patch topical Q24H PRN (Reason: pain) losartan 100 mg tablet 100 mg PO DAILY prednisone 5 mg tablet 10 mg PO DAILY PRN (Reason: flare ups) zolpidem 10 mg tablet 10 mg PO DAILY Print Language: Hungarian Instructions: Constipation (ED), Sciatica (ED) Referrals: SHAINA CASTAÑEDA [Primary Care Provider] - 1 week
[2023-11-29] MEDS: ORPHENADRINE 60 MG/ 2 ML VIAL IM (19:23)
[2023-11-29] MEDS: KETOROLAC TROMETHAMINE 60 MG/2 ML VIAL IM (19:23)
[2023-11-29 21:36] VITALS: BP 154/75; PULSE 78; TEMP 36.4; O2SAT 97
[2023-11-29 21:42] VITALS: BP 154/75; PULSE 78; TEMP 36.4; O2SAT 97
== END 2023-11-29 21:44 | disposition home or self-care (01) ==
PROVIDERS: Emergency Provider Emergency Medicine; PCP Family Medicine
DX: M54.41 Lumbago with sciatica, right side (principal); K59.00 Constipation, unspecified
CPT/HCPCS: 36415; 72100; 80048; 85025; 85652; 86140; 96365; 96372; 96375; 99284; J2919

== ENCOUNTER 2023-12-15 09:25 | Outpatient (OUT) | payer MEDICARE, SELFPAY ==
--- OUTSIDE RECORDS SUMMARY | 2023-12-15 09:35 | XMS_ITS ---
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 Name Role Phone Rice, Juan W Unavailable Unavailable Rice, Juan W Unavailable Unavailable Rice, Juan W Unavailable Unavailable HUDSON CASTAÑEDA Unavailable Unavailable Hudson Castañeda Primary Care Provider Sg Randall Attending Provider Kamari Virk Attending Provider [phone] You, Gonsalo Unavailable Jordan Gutierrez Unavailable MD Hudson Castañeda Primary Care Provider [phone] MD Kamari Virk Attending Provider Unavailabl MD José Luis Brown Referring Provider MD Jordan Gutierrez Attending Provider MD Hudson Castañeda Primary Care Provider MD Sg Randall Attending Provider DR TAMERA [...] Unavailable MD Hudson Castañeda Primary Care Provider [phone] MD Sg Randall Attending Provider CHANTEL Stafford Torie L Attending Provider MD José Luis Brennan Attending Provider MD Hudson Castañeda Primary Care Provider MD Tamera Randall Attending Provider [phone] MD Hudson Castañeda Primary Care Provider MD Tamera Randall Attending Provider Hudson Castañeda Primary Care Unavailable Randall, Tamera Admitting Unavailable Randall, Tamera Attending Unavailable Randall, Tamera Admitting Unavailable Randall, Tamera Attending Unavailable Hemeyer, Edward J Primary Care Unavailable ObTorie segal Admitting Unavailable Torie Stafford Attending Unavailable Hemeyer, Edward J Primary Care Unavailable Miak, José Luis Admitting Unavailable Printy, José Luis Attending Unavailable Hemeyer, Edward J Primary Care Unavailable PA, PRICILLA A Referring Unavailable HEMEYER, EDWARD J Primary Care Unavailable PA, PRICILLA A Attending Unavailable PA, PRICILLA A Referring Unavailable HEMEYER, EDWARD J Primary Care Unavailable OLIVE DODSON Attending Unavailable HEMEYER, EDWARD J Attending Unavailable PA, PRICILLA A Attending Unavailable HEMEYER, EDWARD J Referring Unavailable HEMEYER, EDWARD J Primary Care Unavailable DEB LÓPEZ Attending Unavailable HEMEYER, EDWARD J Referring Unavailable HEMEYER, EDWARD J Primary Care Unavailable Unavailable Unavailable Unavailable Allergies Allergy Classification Reported Allergen(s) Allergy Type Date of Onset Reaction(s) Facility (1 source) No Known Medication Allergies; Translations: [No Known Medication Allergies] Propensity to adverse reactions (disorder) [facility] Repository (5 sources) Ibuprofen Drug Allergy due to kidneys [employer] Other (5 sources) NSAIDs Propensity to adverse reactions due to kidneys [employer] [facility] Other (1 source) Ibuprofen Drug Allergy 3 [facility] Repository (1 source) NSAIDs Drug allergy (disorder) [address] [place] [address] Repository (2 sources) Pollen; Translations: [POLLEN EXTRACTS] Propensity to adverse reactions to drug (disorder) 08-06-201 8 [facility] Repository Encounters Encounter Date Encounter Type Care Provider Facility Start: 12-08-2023 ambulatory DEB Schwab [facility] Start: 12-03-2023 End: 12-03-2023 ambulatory HUDSON CASTAÑEDA Not Available Start: 11-28-2023 End: 11-28-2023 ambulatory MD Hudson Castañeda Work Phone: [facility] Work Phone: Start: 11-28-2023 End: 11-28-2023 Patient encounter procedure MD Hudsno Castañeda Work Phone: [facility] Jose Luis Work Phone: Start: 11-25-2023 End: 11-26-2023 ambulatory [facility] Start: 11-13-2023 End: 11-13-2023 ambulatory MD Hudson Castañeda Work Phone: [facility] Work Phone: Start: 11-13-2023 End: 11-13-2023 Patient encounter procedure MD Hudson Castañeda Work Phone: [facility] Jose Luis Work Phone: Start: 11-11-2023 End: 11-11-2023 ambulatory [facility] Not Available Start: 11-03-2023 End: 11-03-2023 ambulatory [facility] Start: 10-27-2023 End: 10-27-2023 ambulatory Tamera Tonia Facility:[facility] Start: 10-27-2023 End: 10-27-2023 ambulatory MD Hudson Castañeda Work Phone: [facility] Work Phone: Start: 10-27-2023 End: 10-27-2023 Patient encounter procedure MD Hudson Castañeda Work Phone: [facility] [address] Work Phone: Start: 10-17-2023 End: 10-18-2023 ambulatory PRICILLA PA [facility] Start: 05-08-2023 End: 05-08-2023 ambulatory Gonsalo Oyu Other [employer] Other Start: 05-08-2023 Telephone encounter Gonsalo You [facility] Start: 04-29-2023 End: 04-29-2023 ambulatory Hudson Castañeda Facility:[facility] Start: 04-29-2023 End: 04-29-2023 ambulatory MD Hudson Castañeda Work Phone: [facility] Work Phone: Start: 04-29-2023 End: 04-29-2023 Patient encounter procedure MD Hudson Castañeda Work Phone: [facility] [address] Work Phone: Start: 01-08-2023 End: 01-08-2023 ambulatory José Luis Brennan Facility:[facility] Start: 01-08-2023 End: 01-08-2023 ambulatory MD Hudson Castañeda Work Phone: [facility] Work Phone: Start: 01-08-2023 End: 01-08-2023 Patient encounter procedure MD Hudson Castañeda Work Phone: [facility] Work Phone: Start: 12-05-2022 End: 12-05-2022 ambulatory Gonsalo You Other [employer] Other Start: 12-05-2022 Office outpatient visit 25 minutes Gonsalo You [facility] Jose Luis Start: 10-29-2022 End: 10-29-2022 ambulatory Torie Stafford Facility:[facility] Start: 10-29-2022 End: 10-29-2022 ambulatory MD Hudson Castañeda Work Phone: [facility] Work Phone: Start: 10-29-2022 End: 10-29-2022 Patient encounter procedure MD Hudson Castañeda Work Phone: [facility] [address] Work Phone: Start: 10-25-2022 End: 10-25-2022 Patient encounter procedure MD Hudson Castañeda Work Phone: [facility] Start: 07-15-2022 End: 07-16-[address] TAMERA RANDALL Facility:[facility] Start: 05-20-2022 End: 05-20-2022 ambulatory Gonsalo Stevens Other [employer] Other Start: 05-20-2022 Telephone encounter Gonsalo Stevens [facility] Start: 04-25-2022 End: 04-25-2022 ambulatory MD Hudson Castañeda Work Phone: [facility] Work Phone: Start: 04-25-2022 End: 04-25-2022 Patient encounter procedure MD Hudson Castañeda Work Phone: [facility] [address] Start: 02-26-2022 End: 02-26-[address] HUDSON CASTAÑEDA Facility:[facility] Start: 02-11-2022 End: 02-12-[address] HUDSON CASTAÑEDA Facility:[facility] Start: 01-31-2022 End: 01-31-2022 Admission to same day surgery center MD Hudson Castañeda Work Phone: [facility] Start: 01-29-2022 End: 01-29-2022 Patient encounter procedure MD Hudson Castañeda Work Phone: [facility] Start: 01-08-2022 End: 01-08-2022 ambulatory Jordan Gutierrez Other [employer] Other Start: 01-08-2022 Telephone encounter Jordan CHAMORRO [employer] Start: 12-10-2021 End: 12-10-2021 Patient encounter procedure MD Hudson Castañeda Work Phone: [facility] Start: 11-29-2021 End: 11-29-2021 ambulatory Gonsalo You Other [employer] [facility] [employer] Other Start: 11-29-2021 Office outpatient visit 15 minutes Gonsalo You [facility] Jose Luis Start: 11-21-2021 End: 11-22-2021 ambulatory GONSALO YOU Facility: Start: 07-28-2020 End: 07-28-2020 Patient encounter procedure Hudson Castañeda [facility] Start: 07-05-2020 End: 07-05-2020 Patient encounter procedure Hudson Castañeda -Lab [address] Start: 06-18-2018 End: 06-19-2018 Patient encounter procedure Juan Shirley Facility:[facility] Goals Date Patient Goal Desired Activity /State Immunizations Immunization Date Immunization Notes Care Provider Marivel dorado 04-21-2021 COVID-19 Daryn Tracey (Pfizer) MD Hudson Castañeda Work Phone: [facility] 08-26-2020 MATTID-Daryn Goldman (Pfizer) MD Hudson Castañeda Work Phone: [facility] 08-05-2020 COVID-Daryn Goldman (Pfizer) MD Hudson Castañeda Work Phone: [facility] Medications Current Medications Medication Drug Class(es) Dates [...] November 13, 2023 11:02am lactobacillus rhamnosus gg [id number] unt oral capsule (2 sources) Start: 11-13-2023 take 1 capsule by mouth once daily Lactobacillus Rhamnosus Gg (Culturee) 10 billion cell capsule Active 1 CAP PO Daily November 13, 2023 12:00am losartan potassium 100 mg oral tablet (20 sources) Angiotensin 2 Receptor Ariela Start: 01-31-2022 End: 11-13-2023 take 100 mg by mouth once daily Losartan Active 100 MG PO Daily 90 November 13, 2023 11:56am lysine 1000 mg [...] oil (9 sources) Start: 01-31-2022 End: 11-13-2023 Jhqmv-Tw-7-Dha-Epa -Phospho-Ast (Krill Oil) 1,793-176-95-80 mg Capsule Discontinued 1 CAP PO Daily January 31, 2022 12:00am November 13, 2023 11:03am Start: 01-31-2022 Mwsjz-Tv-8-Dha -Tss-Cdfubui-Xrb (Krill Oil) 1,355-073-44-80 mg Capsule Active 1 CAP PO Daily January 31, 2022 12:00am Triamcinolone (10 sources) Corticosteroid Start: 05-24-2018 KENALOG - 10 m g May, 80 mg Start: 02-19-2018 KENALOG - 10 m g Feb, 80 mg Payers Date Payer Category Payer Self-pay [id number] 2015 Medicare [id number] 2013 Unknown [id number] 1959 Medicare [id number] 1959 Unknown [id number] 1950 Unknown [id number] 2.16.84 0.1.964896.3.579.2.727 1950 Unknown [id number] 2.16.84 0.1.442186.3.579.2.593 1950 Unknown [id number] 2.16.84 0.1.914579.3.579.2.593 1950 Unknown [id number] 2.16.84 0.1.554490.3.579.2.593 1950 Unknown [id number] 2.16.84 0.1.090755.3.579.2.593 1950 Unknown [id number] 2.16.8 40.1.808986.3.579.2.1286 1950 Unknown [id number] 2.16.8 40.1.037566.3.579.2.1286 1950 Unknown [id number] 2.16.84 0.1.351303.3.579.2.1259 1950 Unknown [id number] 2.16.84 0.1.080861.3.579.2.1259 1950 Unknown [id number] 2.16.8 40.1.145074.3.579.2.1286 1950 Unknown [id number] 2.16.8 40.1.416353.3.579.2.1286 Unknown [id number] 2.16.8 40.1.504864.3.579.2.531 Unknown [id number] 2.16.8 40.1.886683.3.579.2.531 Unknown [id number] 2.16.8 40.1.714514.3.579.2.531 Unknown [id number] 2.16.8 40.1.336898.3.579.2.531 Plan of Treatment Date Care Activity Detail Author Start: 01-31-2022 [facility] Renal function 2000 panel - Serum or Plasma [facility] Problems Active Problems Problem Classification Problem Date [...] 11-29-2021 Chronic Other aftercare (1 source) Other jail (current) drug therapy; Translations: [OTH CARE HOME CURRENT DRUG THERAPY] Onset: 07-17-2022 Episodic Other [...] [CONTACT W/AND (SUSP) EXPOS COVID-19] Onset: 02-26-2022 Procedures Date Procedure Procedure Detail Performing Clinician [...] Antigen (LFIA) MD Travis Castañeda Work Phone: Results Test Name Value Interpretation Reference Range Facility Alanine aminotransferase [En zymatic activity/volume] in Serum or PlasmaOrdered By: Tamera Randall on 10-27-2023 ALT [Catalytic activity/Vol] 16 U/L 7-52 [facility] Albumin [Mass/volume] in Ser um or Plasma by Bromocresol green (BCG) dye binding methoOrdered By: Tamera Randall on 10-27-2023 Albumin BCG dye [Mass/Vol] 4.5 g/dL 3.5-5.7 [facility] Alkaline phosphatase [Enzyma tic activity/volume] in Serum or PlasmaOrdered By: Tamera Randall on 10-27-2023 ALP [Catalytic activity/Vol] 62 U/L 34-104 [facility] Aspartate aminotransferase [ Enzymatic activity/volume] in Serum or PlasmaOrdered By: Tamera Randall on 10-27-2023 AST [Catalytic activity/Vol] 20 U/L 13-39 [facility] Basophils Auto (Bld) [#/Vol] Ordered By: Tamera Randall on 10-27-2023 Basophils (Bld) [#/Vol] 0.0 10*3/uL 0.0-0.2 [facility] Basophils/100 WBC Auto (Bld) Ordered By: Tamera Randall on 10-27-2023 Basophils/100 WBC (Bld) 0.7 % . F [facility] Bilirubin.total [Mass/volume ] in Serum or PlasmaOrdered By: Tamera Randall on 10-27-2023 Bilirubin [Mass/Vol] 0.6 mg/dL 0.3-1.0 [facility] Calcium [Mass/volume] in Ser um or PlasmaOrdered By: Tamera Randall on 10-27-2023 Calcium [Mass/Vol] 9.5 mg/dL 8.6-10.3 [facility] Carbon dioxide, total [Moles /volume] in Serum or PlasmaOrdered By: Tamera Randall on 04-22-2024 CO2 [Moles/Vol] 25.7 mmol/L 21.0-31.0 [facility] Chloride [Moles/volume] in S jl or PlasmaOrdered By: Tamera Randall on 10-27-2023 Chloride [Moles/Vol] 98 mmol/L 98-107 [facility] Complete Blood Count Auto Di ffon 10-27-2023 Basophils (Bld) [#/Vol] 0.0 10*3/uL Normal 0.0-0.2 [facility] Comment on above: Order Comment: Reaso n for Exam Renovascular hypertension;Renal artery stenosis;Dyslipidemia Performed By: #### E SR, RENAL, [id number], MG, [id number], URIC, CMP, FE and TIBC, CBC, JAS #### [facility] [address] Basophils/100 WBC (Bld) 0.7 % Normal . T [facility] Comment on above: Order Comment: Reaso n for Exam Renovascular hypertension;Renal artery stenosis;Dyslipidemia Performed By: #### E SR, RENAL, [id number], MG, [id number], URIC, CMP, FE and TIBC, CBC, JAS #### [facility] [address] Eosinophils (Bld) [#/Vol] 0.2 10*3/uL Normal 0.0-0.45 [facility] Comment on above: Order Comment: Reaso n for Exam Renovascular hypertension;Renal artery stenosis;Dyslipidemia Performed By: #### E SR, RENAL, [id number], MG, [id number], URIC, CMP, FE and TIBC, CBC, JAS #### [facility] [address] Eosinophils/100 WBC (Bld) 2.7 % Normal . [facility] Comment on above: Order Comment: Reaso n for Exam Renovascular hypertension;Renal artery stenosis;Dyslipidemia Performed By: #### E SR, RENAL, [id number], MG, [id number], URIC, CMP, FE and TIBC, CBC, JAS #### [facility] [address] Erythrocyte distribution width (RBC) [Ratio] 13.4 % Normal 11.9-15.3 [facility] Comment on above: Order Comment: Reaso n for Exam Renovascular hypertension;Renal artery stenosis;Dyslipidemia Performed By: #### E SR, RENAL, [id number], MG, [id number], URIC, CMP, FE and TIBC, CBC, JAS #### [address] Hematocrit (Bld) [Volume fraction] 35.5 % Normal 34.0-46.4 [facility] Comment on above: Order Comment: Reaso n for Exam Renovascular hypertension;Renal artery stenosis;Dyslipidemia Performed By: #### E SR, RENAL, [id number], MG, [id number], URIC, CMP, FE and TIBC, CBC, JAS #### [address] Hemoglobin (Bld) [Mass/Vol] 11.9 g/dL Normal 11.8-15.4 [facility] Comment on above: Order Comment: Reaso n for Exam Renovascular hypertension;Renal artery stenosis;Dyslipidemia Performed By: #### E SR, RENAL, [id number], MG, [id number], URIC, CMP, FE and TIBC, CBC, JAS #### [address] Lymphocytes (Bld) [#/Vol] 1.3 10*3/uL Normal 1.00-4.8 [facility] Comment on above: Order Comment: Reaso n for Exam Renovascular hypertension;Renal artery stenosis;Dyslipidemia Performed By: #### E SR, RENAL, [id number], MG, [id number], URIC, CMP, FE and TIBC, CBC, JAS #### [address] Lymphocytes/100 WBC (Bld) 20.9 % Normal . [facility] Comment on above: Order Comment: Reaso n for Exam Renovascular hypertension;Renal artery stenosis;Dyslipidemia Performed By: #### E SR, RENAL, [id number], MG, [id number], URIC, CMP, FE and TIBC, CBC, JAS #### [address] MCH (RBC) [Entitic mass] 30.4 pg Normal 24.7-34.3 [facility] Comment on above: Order Comment: Reaso n for Exam Renovascular hypertension;Renal artery stenosis;Dyslipidemia Performed By: #### E SR, RENAL, [id number], MG, [id number], URIC, CMP, FE and TIBC, CBC, JAS #### [address] MCV (RBC) [Entitic vol] 90.4 fL Normal 80-100 [facility] Comment on above: Order Comment: Reaso n for Exam Renovascular hypertension;Renal artery stenosis;Dyslipidemia Performed By: #### E SR, RENAL, [id number], MG, [id number], URIC, CMP, FE and TIBC, CBC, JAS #### [address] Mean Corpuscular HGB Conc 33.6 g/dL Normal 32.0-35.0 [facility] Comment on above: Order Comment: Reaso n for Exam Renovascular hypertension;Renal artery stenosis;Dyslipidemia Performed By: #### E SR, RENAL, [id number], MG, [id number], URIC, CMP, FE and TIBC, CBC, JAS #### [address] Monocytes (Bld) [#/Vol] 0.5 10*3/uL Normal 0.0-0.8 [facility] Comment on above: Order Comment: Reaso n for Exam Renovascular hypertension;Renal artery stenosis;Dyslipidemia Performed By: #### E SR, RENAL, [id number], MG, [id number], URIC, CMP, FE and TIBC, CBC, JAS #### [address] Monocytes/100 WBC (Bld) 7.5 % Normal . [facility] Comment on above: Order Comment: Reaso n for Exam Renovascular hypertension;Renal artery stenosis;Dyslipidemia Performed By: #### E SR, RENAL, [id number], MG, [id number], URIC, CMP, FE and TIBC, CBC, JAS #### [facility] [address] Neutrophils (Bld) [#/Vol] 4.1 10*3/uL Normal 1.8-7.7 [facility] Comment on above: Order Comment: Reaso n for Exam Renovascular hypertension;Renal artery stenosis;Dyslipidemia Performed By: #### E SR, RENAL, [id number], MG, [id number], URIC, CMP, FE and TIBC, CBC, JAS #### [facility] [address] Neutrophils/100 WBC (Bld) 68.2 % Normal . [facility] Comment on above: Order Comment: Reaso n for Exam Renovascular hypertension;Renal artery stenosis;Dyslipidemia Performed By: #### E SR, RENAL, [id number], MG, [id number], URIC, CMP, FE and TIBC, CBC, JAS #### [facility] [address] NRBC% 0.1 /100{WBC} Normal 0-0.5 [facility] Comment on above: Order Comment: Reaso n for Exam Renovascular hypertension;Renal artery stenosis;Dyslipidemia Performed By: #### E SR, RENAL, [id number], MG, [id number], URIC, CMP, FE and TIBC, CBC, JAS #### [facility] [address] Platelet mean volume (Bld) [Entitic vol] 9.3 fL Normal 6.3-10.7 [facility] Comment on above: Order Comment: Reaso n for Exam Renovascular hypertension;Renal artery stenosis;Dyslipidemia Performed By: #### E SR, RENAL, [id number], MG, [id number], URIC, CMP, FE and TIBC, CBC, JAS #### [facility] [address] Platelets (Bld) [#/Vol] 275 10*3/uL Normal 150-450 [facility] Comment on above: Order Comment: Reaso n for Exam Renovascular hypertension;Renal artery stenosis;Dyslipidemia Performed By: #### E SR, RENAL, [id number], MG, [id number], URIC, CMP, FE and TIBC, CBC, JAS #### [facility] [address] RBC (Bld) [#/Vol] 3.93 10*6/uL Normal 3.60-5.00 [facility] Comment on above: Order Comment: Reaso n for Exam Renovascular hypertension;Renal artery stenosis;Dyslipidemia Performed By: #### E SR, RENAL, [id number], MG, [id number], URIC, CMP, FE and TIBC, CBC, JAS #### [facility] [address] WBC (Bld) [#/Vol] 6.1 10*3/uL Normal 3.8-11.6 [facility] Comment on above: Order Comment: Reaso n for Exam Renovascular hypertension;Renal artery stenosis;Dyslipidemia Performed By: #### E SR, RENAL, [id number], MG, [id number], URIC, CMP, FE and TIBC, CBC, JAS #### [facility] [address] Comprehensive Metabolic Pane canelo 10-27-2023 Albumin [Mass/Vol] 4.5 g/dL Normal 3.5-5.7 [facility] Comment on above: Order Comment: Reaso n for Exam Renovascular hypertension;Renal artery stenosis;Dyslipidemia Performed By: #### E SR, RENAL, [id number], MG, [id number], URIC, CMP, FE and TIBC, CBC, AJS #### [facility] [address] [place] [id number] [facility] Albumin/Globulin [Mass ratio] 1.7 {ratio} Normal [facility] Comment on above: Order Comment: Reaso n for Exam Renovascular hypertension;Renal artery stenosis;Dyslipidemia Performed By: #### E SR, RENAL, [id number], MG, [id number], URIC, CMP, FE and TIBC, CBC, JAS #### [facility] [address] ALP [Catalytic activity/Vol] 62 U/L Normal 34-104 [facility] Comment on above: Order Comment: Reaso n for Exam Renovascular hypertension;Renal artery stenosis;Dyslipidemia Performed By: #### E SR, RENAL, [id number], MG, [id number], URIC, CMP, FE and TIBC, CBC, JAS #### [facility] [address] ALT [Catalytic activity/Vol] 16 U/L Normal 7-52 [facility] Comment on above: Order Comment: Reaso n for Exam Renovascular hypertension;Renal artery stenosis;Dyslipidemia Performed By: #### E SR, RENAL, [id number], MG, [id number], URIC, CMP, FE and TIBC, CBC, JAS #### [facility] [address] [place] [address] Anion gap [Moles/Vol] 12.8 mmol/L Normal 6.0-15.0 [facility] Comment on above: Order Comment: Reaso n for Exam Renovascular hypertension;Renal artery stenosis;Dyslipidemia Performed By: #### E SR, RENAL, [id number], MG, [id number], URIC, CMP, FE and TIBC, CBC, JAS #### [facility] [address] [place] [address] AST [Catalytic activity/Vol] 20 U/L Normal 13-39 [facility] Comment on above: Order Comment: Reaso n for Exam Renovascular hypertension;Renal artery stenosis;Dyslipidemia Performed By: #### E SR, RENAL, [id number], MG, [id number], URIC, CMP, FE and TIBC, CBC, JAS #### [facility] [address] Bilirubin [Mass/Vol] 0.6 mg/dL Normal 0.3-1.0 [facility] Comment on above: Order Comment: Reaso n for Exam Renovascular hypertension;Renal artery stenosis;Dyslipidemia Performed By: #### E SR, RENAL, [id number], MG, [id number], URIC, CMP, FE and TIBC, CBC, JAS #### [facility] [address] Calcium [Mass/Vol] 9.5 mg/dL Normal 8.6-10.3 [facility] Comment on above: Order Comment: Reaso n for Exam Renovascular hypertension;Renal artery stenosis;Dyslipidemia Performed By: #### E SR, RENAL, [id number], MG, [id number], URIC, CMP, FE and TIBC, CBC, JAS #### [facility] [address] Chloride [Moles/Vol] 98 mmol/L Normal 98-107 [facility] Comment on above: Order Comment: Reaso n for Exam Renovascular hypertension;Renal artery stenosis;Dyslipidemia Performed By: #### E SR, RENAL, [id number], MG, [id number], URIC, CMP, FE and TIBC, CBC, JAS #### [facility] [address] CO2 [Moles/Vol] 25.7 mmol/L Normal 21.0-31.0 The [facility] Comment on above: Order Comment: Reaso n for Exam Renovascular hypertension;Renal artery stenosis;Dyslipidemia Performed By: #### E SR, RENAL, [id number], MG, [id number], URIC, CMP, FE and TIBC, CBC, JAS #### [facility] [address] Creatinine [Mass/Vol] 0.69 mg/dL Normal 0.60-1.20 [facility] Comment on above: Order Comment: Reaso n for Exam Renovascular hypertension;Renal artery stenosis;Dyslipidemia Performed By: #### E SR, RENAL, [id number], MG, [id number], URIC, CMP, FE and TIBC, CBC, JAS #### [facility] [address] [place] [id number] [place] GFR/1.73 sq M.predicted MDRD (S/P/Bld) [Vol rate/Area] mL/min/{1.73_m2} Normal [facility] Comment on above: Order Comment: Reaso n for Exam Renovascular hypertension;Renal artery stenosis;Dyslipidemia Performed By: #### E SR, RENAL, [id number], MG, [id number], URIC, CMP, FE and TIBC, CBC, JAS #### [facility] [address] Globulin (S) [Mass/Vol] 2.6 g/dL Normal [facility] Comment on above: Order Comment: Reaso n for Exam Renovascular hypertension;Renal artery stenosis;Dyslipidemia Performed By: #### E SR, RENAL, [id number], MG, [id number], URIC, CMP, FE and TIBC, CBC, JAS #### [facility] [address] Glucose [Mass/Vol] 96 mg/dL Normal 70-100 [facility] Comment on above: Order Comment: Reaso n for Exam Renovascular hypertension;Renal artery stenosis;Dyslipidemia Result Comment: [facility] Glucose Reference Range is dependent on time and content of last meal. Glucose of more than 200 mg/dL in a nonstressed, ambulatory subject supports the diagnosis of Diabetes Mellitus. ADA recommended reference range Performed By: #### E SR, RENAL, [id number], MG, [id number], URIC, CMP, FE and TIBC, CBC, JAS #### [address] Potassium [Moles/Vol] 4.5 mmol/L Normal 3.5-5.1 [facility] Comment on above: Order Comment: Reaso n for Exam Renovascular hypertension;Renal artery stenosis;Dyslipidemia Performed By: #### E SR, RENAL, [id number], MG, [id number], URIC, CMP, FE and TIBC, CBC, JAS #### [facility] [address] [place] [id number] [facility] Protein [Mass/Vol] 7.1 g/dL Normal 6.4-8.9 [facility] Comment on above: Order Comment: Reaso n for Exam Renovascular hypertension;Renal artery stenosis;Dyslipidemia Performed By: #### E SR, RENAL, [id number], MG, [id number], URIC, CMP, FE and TIBC, CBC, JAS #### [facility] [address] [place] [address] Sodium [Moles/Vol] 132 mmol/L Low 136-145 [facility] Comment on above: Order Comment: Reaso n for Exam Renovascular hypertension;Renal artery stenosis;Dyslipidemia Performed By: #### E SR, RENAL, [id number], MG, [id number], URIC, CMP, FE and TIBC, CBC, JAS #### [facility] [address] [place] [address] Urea nitrogen [Mass/Vol] 21 mg/dL Normal 7-25 [facility] Comment on above: Order Comment: Reaso n for Exam Renovascular hypertension;Renal artery stenosis;Dyslipidemia Performed By: #### E SR, RENAL, [id number], MG, [id number], URIC, CMP, FE and TIBC, CBC, JAS #### [address] Creatinine [Mass/volume] in Serum or PlasmaOrdered By: Tamera Randall on 10-27-2023 Creatinine [Mass/Vol] 0.69 mg/dL 0.60-1.20 [facility] Eosinophils Auto (Bld) [#/Vo l]Ordered By: Tamera Randall on 10-27-2023 Eosinophils (Bld) [#/Vol] 0.2 10*3/uL 0.0-0.45 [facility] Eosinophils/100 WBC Auto (Bl d)Ordered By: Tamera Randall on 10-27-2023 Eosinophils/100 WBC (Bld) 2.7 % . [facility] Erythrocyte Sedimentation Ra eulalio 10-27-2023 ESR (Bld) [Velocity] 17 mm/h Normal 0-29 [facility] Comment on above: Order Comment: Reaso n for Exam Renovascular hypertension;Renal artery stenosis;Dyslipidemia Result Comment: PERF ORMED BY: [place] [address] PATHOLOGIST [employer] ONEIL GAMA M.D. Performed By: #### E SR, RENAL, [id number], MG, [id number], URIC, CMP, FE and TIBC, CBC, JAS #### [facility] [address] [place] [id number] [facility] Erythrocyte distribution wid th Auto (RBC) [Ratio]Ordered By: Tamera Randall on 10-27-2023 Erythrocyte distribution width (RBC) [Ratio] 13.4 % 11.9-15.3 [facility] Erythrocyte sedimentation ra te by Photometric methodOrdered By: Tamera Randall on 10-27-2023 ESR Photometric method (Bld) [Velocity] 17 mm/hr 0-29 [facility] Ferritinon 10-27-2023 Ferritin [Mass/Vol] 44.3 ng/mL Normal 11.0-306.8 [facility] Comment on above: Order Comment: Reaso n for Exam Renovascular hypertension;Renal artery stenosis;Dyslipidemia Performed By: #### C BC, CMP, ESR #### [facility] [address] [place] [id number] [facility] Ferritin [Mass/volume] in Se rum or PlasmaOrdered By: Gonsalo Stevens on 10-27-2023 Ferritin [Mass/Vol] 44.3 ng/mL 11.0-306.8 [place] Folate [Mass/volume] in Seru m or PlasmaOrdered By: Gonsalo Stevens on 10-27-2023 Folate [Mass/Vol] 36.0 ng/mL >5.9 [facility] Comment on above: Folate reference ran ge: >5.9 ng/mlThe WHO technical consultation on folate and vitamin [id number] has determined that folate concentrations lessthan 4 ng/ml are considered deficient. Globulin Calc (S) [Mass/Vol] Ordered By: Tamera Randall on 10-27-2023 Globulin (S) [Mass/Vol] 2.6 g/dL [facility] Glucose [Mass/volume] in Ser um or PlasmaOrdered By: Tamera Randall on 10-27-2023 Glucose [Mass/Vol] 96 mg/dL 70-100 [facility] Comment on above: ADA recommended refe rence rangeRandom Glucose Reference Range is dependent on time and content of last meal. Glucose of more than 200 mg/dL in a nonstressed, ambulatory subject supports the diagnosis of Diabetes Mellitus. Hematocrit Auto (Bld) [Volum e fraction]Ordered By: Tamera Randall on 10-27-2023 Hematocrit (Bld) [Volume fraction] 35.5 % 34.0-46.4 [facility] Hemoglobin [Mass/volume] in BloodOrdered By: Tamera Randall on 10-27-2023 Hemoglobin (Bld) [Mass/Vol] 11.9 g/dL 11.8-15.4 [facility] Iron [Mass/volume] in Serum or PlasmaOrdered By: Gonsalo You on 10-27-2023 Iron [Mass/Vol] 93 ug/dL 50-212 [facility] Iron and TIBC Profileon 10-06 % Iron Saturation 25.0 % Normal 20-50 [facility] Comment on above: Order Comment: Reaso n for Exam Renovascular hypertension;Renal artery stenosis;Dyslipidemia Performed By: #### C BC, CMP, ESR #### [facility] [address] [place] [address] [facility] Iron [Mass/Vol] 93 ug/dL Normal 50-212 [facility] Comment on above: Order Comment: Reaso n for Exam Renovascular hypertension;Renal artery stenosis;Dyslipidemia Performed By: #### C BC, CMP, ESR #### [facility] [address] [place] [address] [place] Total Iron Binding Capacity 372 ug/dL Normal 255-450 [facility] Comment on above: Order Comment: Reaso n for Exam Renovascular hypertension;Renal artery stenosis;Dyslipidemia Performed By: #### C BC, CMP, ESR #### [facility] [address] [place] [address] [place] Transferrin [Mass/Vol] 266 mg/dL Normal 203-362 [facility] Comment on above: Order Comment: Reaso n for Exam Renovascular hypertension;Renal artery stenosis;Dyslipidemia Performed By: #### C BC, CMP, ESR #### [facility] [address] [place] [address] [place] Iron binding capacity [Mass/ volume] in Serum or PlasmaOrdered By: Gonsalo You on 10-27-2023 Iron binding capacity [Mass/Vol] 372 ug/dL 255-450 [facility] Iron saturation [Mass Fracti on] in Serum or PlasmaOrdered By: Gonsalo You on 10-27-2023 Iron saturation [Mass fraction] 25.0 % 20-50 [facility] Leukocytes [#/volume] correc taylor for nucleated erythrocytes in Blood by Automated counOrdered By: Tamera Randall on 10-27-2023 WBC corrected for nucl RBC Auto (Bld) [#/Vol] 6.1 10*3/uL 3.8-11.6 [facility] Lymphocytes Auto (Bld) [#/Vo l]Ordered By: Tamera Randall on 10-27-2023 Lymphocytes (Bld) [#/Vol] 1.3 10*3/uL 1.00-4.8 [facility] Lymphocytes/100 WBC Auto (Bl d)Ordered By: Tamera Randall on 10-27-2023 Lymphocytes/100 WBC (Bld) 20.9 % . [facility] MCH Auto (RBC) [Entitic mass ]Ordered By: Tamera Randall on 10-27-2023 MCH (RBC) [Entitic mass] 30.4 pg 24.7-34.3 [facility] MCHC Auto (RBC) [Mass/Vol]Or dered By: Tamera Randall on 10-27-2023 MCHC (RBC) [Mass/Vol] 33.6 g/dL 32.0-35.0 [facility] MCV Auto (RBC) [Entitic vol] Ordered By: Tamera Randall on 10-27-2023 MCV (RBC) [Entitic vol] 90.4 fL 80-100 F [facility] Magnesiumon 10-27-2023 Magnesium [Mass/Vol] 1.9 mg/dL Normal 1.9-2.7 [facility] Comment on above: Order Comment: Reaso n for Exam Renovascular hypertension;Renal artery stenosis;Dyslipidemia Performed By: #### C BC, CMP, ESR #### [facility] [address] Magnesium [Mass/volume] in S jl or PlasmaOrdered By: Gonsalo Stevens on 10-27-2023 Magnesium [Mass/Vol] 1.9 mg/dL 1.9-2.7 [facility] Monocytes Auto (Bld) [#/Vol] Ordered By: Tameraluke Randall on 10-27-2023 Monocytes (Bld) [#/Vol] 0.5 10*3/uL 0.0-0.8 [facility] Monocytes/100 WBC Auto (Bld) Ordered By: Tamera Tonia on 10-27-2023 Monocytes/100 WBC (Bld) 7.5 % . F [facility] Neutrophils Auto (Bld) [#/Vo l]Ordered By: Tameraluke Randall on 10-27-2023 Neutrophils (Bld) [#/Vol] 4.1 10*3/uL 1.8-7.7 [facility] Neutrophils/100 WBC Auto (Bl d)Ordered By: Tamera Randall on 10-27-2023 Neutrophils/100 WBC (Bld) 68.2 % . [facility] No Panel InformationOrdered By: Tamera Randall on 10-27-2023 Estimated GFR (CKD-EPI) > 60.0 mL/Min [facility] Creatinine Clearance (Chem N/A [facility] Nucleated erythrocytes [Pres ence] in Blood by Automated countOrdered By: Tamera Randall on 10-27-2023 Nucleated RBC Auto Ql (Bld) 0.1 /100{WBC} 0-0.5 [facility] Parathyrin.intact [Mass/volu me] in Serum or PlasmaOrdered By: Gonsalo Stevens on 10-27-2023 Parathyrin.intact [Mass/Vol] 29.8 pg/mL [facility] Parathyroid Hormone Intacton 10-27-2023 Parathyroid Hormone Intact 29.8 pg/mL Normal [facility] Comment on above: Order Comment: Reaso n for Exam Renovascular hypertension;Renal artery stenosis;Dyslipidemia Result Comment: PERF ORMED BY: [place] [address] PATHOLOGIST [employer] ONEIL GAMA M.D. Performed By: #### P TH #### [address] Phosphate [Mass/volume] in S jl or PlasmaOrdered By: Gonsalo Stevens on 10-27-2023 Phosphate [Mass/Vol] 4.4 mg/dL 2.5-4.5 [facility] Platelet mean volume Auto (B ld) [Entitic vol]Ordered By: Tamrea Randall on 10-27-2023 Platelet mean volume (Bld) [Entitic vol] 9.3 fL 6.3-10.7 [facility] Platelets Auto (Bld) [#/Vol] Ordered By: Tamera Randall on 10-27-2023 Platelets (Bld) [#/Vol] 275 10*3/uL 150-450 [facility] Potassium [Moles/volume] in Serum or PlasmaOrdered By: Tamera Randall on 10-27-2023 Potassium [Moles/Vol] 4.5 mmol/L 3.5-5.1 [facility] Protein [Mass/volume] in Ser um or PlasmaOrdered By: Tamera Randall on 10-27-2023 Protein [Mass/Vol] 7.1 g/dL 6.4-8.9 [facility] RBC Auto (Bld) [#/Vol]Ordere d By: Tamera Randall on 10-27-2023 RBC (Bld) [#/Vol] 3.93 10*6/uL 3.60-5.00 [place] Renal Function Panelon 10-26 Phosphate [Mass/Vol] 4.4 mg/dL Normal 2.5-4.5 [facility] Comment on above: Order Comment: Reaso n for Exam Renovascular hypertension;Renal artery stenosis;Dyslipidemia Performed By: #### E SR, RENAL, [id number], MG, [id number], URIC, CMP, FE and TIBC, CBC, JAS #### [facility] [address] Serum or plasma albumin/glob ulin mass ratioOrdered By: Tamera Randall on 10-27-2023 Albumin/Globulin [Mass ratio] 1.7 {ratio} [facility] Serum or plasma anion gap de terminationOrdered By: Tamera Randall on 10-27-2023 Anion gap [Moles/Vol] 12.8 mmol/L 6.0-15.0 [facility] Sodium [Moles/volume] in Ser um or PlasmaOrdered By: Tamera Randall on 10-27-2023 Sodium [Moles/Vol] 132 mmol/L 136-145 [facility] Transferrin [Mass/volume] in Serum or PlasmaOrdered By: Gonsalo Stevens on 10-27-2023 Transferrin [Mass/Vol] 266 mg/dL 203-362 [facility] Urate [Mass/volume] in Serum or PlasmaOrdered By: Gonsalo Stevens on 10-27-2023 Urate [Mass/Vol] 2.9 mg/dL 2.3-6.6 [facility] Urea nitrogen [Mass/volume] in Serum or PlasmaOrdered By: Tamera Randall on 10-27-2023 Urea nitrogen [Mass/Vol] 21 mg/dL 7-25 [facility] Uric Acidon 10-27-2023 Urate [Mass/Vol] 2.9 mg/dL Normal 2.3-6.6 [facility] Comment on above: Order Comment: Reaso n for Exam Renovascular hypertension;Renal artery stenosis;Dyslipidemia Performed By: #### C BC, CMP, ESR #### [facility] [address] Vit. B12/Folate Profileon Cobalamin (Vitamin B12) [Mass/Vol] 1280 pg/mL High 180-914 [facility] Comment on above: Order Comment: Reaso n for Exam Renovascular hypertension;Renal artery stenosis;Dyslipidemia Performed By: #### C BC, CMP, ESR #### [facility] [address] Folate 36.0 ng/mL Normal >5.9 [facility] Comment on above: Order Comment: Reaso n for Exam Renovascular hypertension;Renal artery stenosis;Dyslipidemia Result Comment: Alcira te reference range: >5.9 ng/ml The WHO technical consultation on folate and vitamin b12 deficiencies has determined that folate concentrations less than 4 ng/ml are considered deficient. Performed By: #### C BC, CMP, ESR #### [facility] [address] [place] [id number] [facility] Vitamin B12 ser/plasOrdered By: Gonsalo Stevens on 10-27-2023 Cobalamin (Vitamin B12) [Mass/Vol] 1280 pg/mL 180-914 [facility] Vitamin D 25 Hydroxy Totalon 10-27-2023 Vitamin D 25 Hydroxy Total 57.7 ng/mL Normal 30-100 [facility] Comment on above: Order Comment: Reaso n for Exam Renovascular hypertension;Renal artery stenosis;Dyslipidemia Result Comment: BOBO MIN D STATUS 25(OH)VITAMIN D RANGE (ng/mL) Deficient <20 Insufficient 20 to <30 Sufficient 30 to 100 Reference: Laly Miranda, Magui GASPAR, et al. Evaluation,treatment, and prevention of vitamin D deficiency; an Endocrine Society clinical practice guideline. JCEM. 2010; 96(7):1911-. PERFORMED BY: [place] [address] PATHOLOGIST [employer] ONEIL GAMA M.D. Performed By: #### C BC, CMP, ESR #### [address] Vitamin D+Metabolites [Mass/ volume] in Serum or PlasmaOrdered By: Gonsalo Stevens on 10-27-2023 Vitamin D+Metabolites [Mass/Vol] 57.7 ng/mL 30-100 [facility] Comment on above: VITAMIN D STATUS 25( [place])VITAMIN D RANGE (ng/mL) Deficient <20 Insufficient 20 to <30Sufficient 30 to 100Reference: Laly Miranda, Magui GASPAR, et al. Evaluation,treatment, and prevention of vitamin D deficiency; an Endocrine Society clinical practice guideline. JCEM. 2010; 96(7):1911-30. WBC Auto (Bld) [#/Vol]Ordere d By: Tamera Randall on 10-27-2023 WBC (Bld) [#/Vol] 6.1 10*3/uL 3.8-11.6 [facility] Alanine aminotransferase [En zymatic activity/volume] in Serum or PlasmaOrdered By: Tamera Randall on 04-29-2023 ALT [Catalytic activity/Vol] 17 U/L 7-52 [facility] Albumin [Mass/volume] in Ser um or Plasma by Bromocresol green (BCG) dye binding methoOrdered By: Tamera Randall on 04-29-2023 Albumin BCG dye [Mass/Vol] 4.4 g/dL 3.5-5.7 [facility] Alkaline phosphatase [Enzyma tic activity/volume] in Serum or PlasmaOrdered By: Tamera Randall on 04-29-2023 ALP [Catalytic activity/Vol] 79 U/L 34-104 [facility] Aspartate aminotransferase [ Enzymatic activity/volume] in Serum or PlasmaOrdered By: Tamera Randall on 04-29-2023 AST [Catalytic activity/Vol] 20 U/L 13-39 [facility] Basophils Auto (Bld) [#/Vol] Ordered By: Tamera Randall on 04-29-2023 Basophils (Bld) [#/Vol] 0.0 10*3/uL 0.0-0.2 [facility] Basophils/100 WBC Auto (Bld) Ordered By: Tamera Randall on 04-29-2023 Basophils/100 WBC (Bld) 0.9 % . F [facility] Bilirubin.total [Mass/volume ] in Serum or PlasmaOrdered By: Tamera Randall on 04-29-2023 Bilirubin [Mass/Vol] 0.8 mg/dL 0.3-1.0 [facility] Calcium [Mass/volume] in Ser um or PlasmaOrdered By: Tamera Randall on 04-29-2023 Calcium [Mass/Vol] 9.6 mg/dL 8.6-10.3 [facility] Carbon dioxide, total [Moles /volume] in Serum or PlasmaOrdered By: Tamera Randall on 04-29-2023 CO2 [Moles/Vol] 29.3 mmol/L 21.0-31.0 [facility] Chloride [Moles/volume] in S jl or PlasmaOrdered By: Tamera Randall on 04-29-2023 Chloride [Moles/Vol] 98 mmol/L 98-107 [facility] Complete Blood Count Auto Di ffon 04-29-2023 Basophils (Bld) [#/Vol] 0.0 10*3/uL Normal 0.0-0.2 [facility] Comment on above: Performed By: #### C BC, CMP, ESR #### [facility] [address] [place] [id number] [place] Basophils/100 WBC (Bld) 0.9 % Normal . [facility] Comment on above: Performed By: #### C BC, CMP, ESR #### [facility] [address] [place] [address] [place] Eosinophils (Bld) [#/Vol] 0.2 10*3/uL Normal 0.0-0.45 [facility] Comment on above: Performed By: #### C BC, CMP, ESR #### [facility] [address] [place] [id number] [place] Eosinophils/100 WBC (Bld) 4.2 % Normal . [facility] Comment on above: Performed By: #### C BC, CMP, ESR #### [facility] [address] Erythrocyte distribution width (RBC) [Ratio] 13.3 % Normal 11.9-15.3 [facility] Comment on above: Performed By: #### C BC, CMP, ESR #### [facility] [address] [place] [address] [place] Hematocrit (Bld) [Volume fraction] 34.2 % Normal 34.0-46.4 [facility] Comment on above: Performed By: #### C BC, CMP, ESR #### [facility] [address] [place] [address] [place] Hemoglobin (Bld) [Mass/Vol] 11.5 g/dL Low 11.8-15.4 [facility] Comment on above: Performed By: #### C BC, CMP, ESR #### [facility] [address] [place] [id number] [place] Lymphocytes (Bld) [#/Vol] 1.4 10*3/uL Normal 1.00-4.8 [facility] Comment on above: Performed By: #### C BC, CMP, ESR #### [facility] [address] [place] [id number] [place] Lymphocytes/100 WBC (Bld) 29.9 % Normal . [facility] Comment on above: Performed By: #### C BC, CMP, ESR #### [facility] [address] MCH (RBC) [Entitic mass] 30.3 pg Normal 24.7-34.3 [facility] Comment on above: Performed By: #### C BC, CMP, ESR #### [facility] [address] MCV (RBC) [Entitic vol] 90.0 fL Normal 80-100 [facility] Comment on above: Performed By: #### C BC, CMP, ESR #### [address] Mean Corpuscular HGB Conc 33.7 g/dL Normal 32.0-35.0 [facility] Comment on above: Performed By: #### C BC, CMP, ESR #### [address] Monocytes (Bld) [#/Vol] 0.4 10*3/uL Normal 0.0-0.8 [facility] Comment on above: Performed By: #### C BC, CMP, ESR #### [address] Monocytes/100 WBC (Bld) 8.2 % Normal . [facility] Comment on above: Performed By: #### C BC, CMP, ESR #### [address] Neutrophils (Bld) [#/Vol] 2.7 10*3/uL Normal 1.8-7.7 [facility] Comment on above: Performed By: #### C BC, CMP, ESR #### [address] Neutrophils/100 WBC (Bld) 56.8 % Normal . [facility] Comment on above: Performed By: #### C BC, CMP, ESR #### [address] NRBC% 0.1 /100{WBC} Normal 0-0.5 [facility] Comment on above: Performed By: #### C BC, CMP, ESR #### [address] Platelet mean volume (Bld) [Entitic vol] 8.9 fL Normal 6.3-10.7 [facility] Comment on above: Performed By: #### C BC, CMP, ESR #### [address] Platelets (Bld) [#/Vol] 276 10*3/uL Normal 150-450 [facility] Comment on above: Performed By: #### C BC, CMP, ESR #### [address] RBC (Bld) [#/Vol] 3.80 10*6/uL Normal 3.60-5.00 [facility] Comment on above: Performed By: #### C BC, CMP, ESR #### [address] WBC (Bld) [#/Vol] 4.8 10*3/uL Normal 3.8-11.6 The [facility] Comment on above: Performed By: #### C BC, CMP, ESR #### [address] Comprehensive Metabolic Pane canelo 04-29-2023 Albumin [Mass/Vol] 4.4 g/dL Normal 3.5-5.7 [facility] Comment on above: Performed By: #### C BC, CMP, ESR #### [address] Albumin/Globulin [Mass ratio] 1.6 {ratio} Normal [facility] Comment on above: Performed By: #### C BC, CMP, ESR #### [address] ALP [Catalytic activity/Vol] 79 U/L Normal 34-104 [facility] Comment on above: Result Comment: PERF ORMED BY: [place] [address] PATHOLOGIST [employer] ONEIL GAMA M.D. Performed By: #### C BC, CMP, ESR #### [facility] [address] [place] [id number] [place] ALT [Catalytic activity/Vol] 17 U/L Normal 7-52 [facility] Comment on above: Performed By: #### C BC, CMP, ESR #### [facility] [address] [place] [id number] [place] Anion gap [Moles/Vol] 9.0 mmol/L Normal 6.0-15.0 [facility] Comment on above: Performed By: #### C BC, CMP, ESR #### [facility] [address] [place] [id number] [place] AST [Catalytic activity/Vol] 20 U/L Normal 13-39 [facility] Comment on above: Performed By: #### C BC, CMP, ESR #### [facility] [address] [place] [id number] [place] Bilirubin [Mass/Vol] 0.8 mg/dL Normal 0.3-1.0 [facility] Comment on above: Performed By: #### C BC, CMP, ESR #### [facility] [address] [place] [id number] [place] Calcium [Mass/Vol] 9.6 mg/dL Normal 8.6-10.3 [facility] Comment on above: Performed By: #### C BC, CMP, ESR #### [facility] [address] [place] [id number] [place] Chloride [Moles/Vol] 98 mmol/L Normal 98-107 [facility] Comment on above: Performed By: #### C BC, CMP, ESR #### [facility] [address] [place] [address] [place] CO2 [Moles/Vol] 29.3 mmol/L Normal 21.0-31.0 The [facility] Comment on above: Performed By: #### C BC, CMP, ESR #### [facility] [address] [place] [address] [place] Creatinine [Mass/Vol] 0.73 mg/dL Normal 0.60-1.20 [facility] Comment on above: Performed By: #### C BC, CMP, ESR #### [facility] [address] GFR/1.73 sq M.predicted MDRD (S/P/Bld) [Vol rate/Area] mL/min/{1.73_m2} Normal [facility] Comment on above: Performed By: #### C BC, CMP, ESR #### [facility] [address] Globulin (S) [Mass/Vol] 2.7 g/dL Normal T [facility] Comment on above: Performed By: #### C BC, CMP, ESR #### [facility] [address] Glucose [Mass/Vol] 83 mg/dL Normal 70-100 [facility] Comment on above: Result Comment: [employer] Glucose Reference Range is dependent on time and content of last meal. Glucose of more than 200 mg/dL in a nonstressed, ambulatory subject supports the diagnosis of Diabetes Mellitus. ADA recommended reference range Performed By: #### C BC, CMP, ESR #### [address] Potassium [Moles/Vol] 4.3 mmol/L Normal 3.5-5.1 [facility] Comment on above: Performed By: #### C BC, CMP, ESR #### [facility] [address] [address] Protein [Mass/Vol] 7.1 g/dL Normal 6.4-8.9 [facility] Comment on above: Performed By: #### C BC, CMP, ESR #### [facility] [address] [place] [address] [place] Sodium [Moles/Vol] 132 mmol/L Low 136-145 [facility] Comment on above: Performed By: #### C BC, CMP, ESR #### [facility] [address] Urea nitrogen [Mass/Vol] 18 mg/dL Normal 7-25 [facility] Comment on above: Performed By: #### C BC, CMP, ESR #### [facility] [address] Creatinine [Mass/volume] in Serum or PlasmaOrdered By: Tamera Randall on 04-29-2023 Creatinine [Mass/Vol] 0.73 mg/dL 0.60-1.20 [facility] Eosinophils Auto (Bld) [#/Vo l]Ordered By: Tamera Randall on 04-29-2023 Eosinophils (Bld) [#/Vol] 0.2 10*3/uL 0.0-0.45 [facility] Eosinophils/100 WBC Auto (Bl d)Ordered By: Tamera Randall on 04-29-2023 Eosinophils/100 WBC (Bld) 4.2 % . [facility] Erythrocyte Sedimentation Ra eulalio 04-29-2023 ESR (Bld) [Velocity] 17 mm/h Normal 0-29 [facility] Comment on above: Result Comment: PERF ORMED BY: [place] [address] PATHOLOGIST [employer] HARVESTER ONEIL GAMA M.D. Performed By: #### C BC, CMP, ESR #### [facility] [address] [place] [address] Erythrocyte distribution wid th Auto (RBC) [Ratio]Ordered By: Tamera Randall on 04-29-2023 Erythrocyte distribution width (RBC) [Ratio] 13.3 % 11.9-15.3 [facility] Erythrocyte sedimentation ra te by Photometric methodOrdered By: Tamera Randall on 04-29-2023 ESR Photometric method (Bld) [Velocity] 17 mm/hr 0-29 [facility] Globulin Calc (S) [Mass/Vol] Ordered By: Tamera Randall on 04-29-2023 Globulin (S) [Mass/Vol] 2.7 g/dL [facility] Glucose [Mass/volume] in Ser um or PlasmaOrdered By: Tamera Randall on 04-29-2023 Glucose [Mass/Vol] 83 mg/dL 70-100 [facility] Comment on above: ADA recommended refe rence rangeRandom Glucose Reference Range is dependent on time and content of last meal. Glucose of more than 200 mg/dL in a nonstressed, ambulatory subject supports the diagnosis of Diabetes Mellitus. Hematocrit Auto (Bld) [Volum e fraction]Ordered By: Tamera Randall on 04-29-2023 Hematocrit (Bld) [Volume fraction] 34.2 % 34.0-46.4 [facility] Hemoglobin [Mass/volume] in BloodOrdered By: Tamera Randall on 04-29-2023 Hemoglobin (Bld) [Mass/Vol] 11.5 g/dL 11.8-15.4 [facility] Leukocytes [#/volume] correc taylor for nucleated erythrocytes in Blood by Automated counOrdered By: Tamera Randall on 04-29-2023 WBC corrected for nucl RBC Auto (Bld) [#/Vol] 4.8 10*3/uL 3.8-11.6 [facility] Lymphocytes Auto (Bld) [#/Vo l]Ordered By: Tamera Randall on 04-29-2023 Lymphocytes (Bld) [#/Vol] 1.4 10*3/uL 1.00-4.8 [facility] Lymphocytes/100 WBC Auto (Bl d)Ordered By: Tamera Randall on 04-29-2023 Lymphocytes/100 WBC (Bld) 29.9 % . [facility] MCH Auto (RBC) [Entitic mass ]Ordered By: Tamera Randall on 04-29-2023 MCH (RBC) [Entitic mass] 30.3 pg 24.7-34.3 [facility] MCHC Auto (RBC) [Mass/Vol]Or dered By: Tamera Randall on 04-29-2023 MCHC (RBC) [Mass/Vol] 33.7 g/dL 32.0-35.0 [facility] MCV Auto (RBC) [Entitic vol] Ordered By: Tamera Randall on 04-29-2023 MCV (RBC) [Entitic vol] 90.0 fL 80-100 [facility] Monocytes Auto (Bld) [#/Vol] Ordered By: Tamera Randall on 04-29-2023 Monocytes (Bld) [#/Vol] 0.4 10*3/uL 0.0-0.8 [facility] Monocytes/100 WBC Auto (Bld) Ordered By: Tamera Randall on 04-29-2023 Monocytes/100 WBC (Bld) 8.2 % . [facility] Neutrophils Auto (Bld) [#/Vo l]Ordered By: Tamera Randall on 04-29-2023 Neutrophils (Bld) [#/Vol] 2.7 10*3/uL 1.8-7.7 [facility] Neutrophils/100 WBC Auto (Bl d)Ordered By: Tamera Randall on 04-29-2023 Neutrophils/100 WBC (Bld) 56.8 % . [facility] No Panel InformationOrdered By: Tamera Randall on 04-29-2023 Estimated GFR (CKD-EPI) > 60.0 mL/Min [facility] Creatinine Clearance (Chem N/A [facility] Nucleated erythrocytes [Pres ence] in Blood by Automated countOrdered By: Tamera Randall on 04-29-2023 Nucleated RBC Auto Ql (Bld) 0.1 /100{WBC} 0-0.5 [facility] Platelet mean volume Auto (B ld) [Entitic vol]Ordered By: Tamera Randall on 04-29-2023 Platelet mean volume (Bld) [Entitic vol] 8.9 fL 6.3-10.7 [facility] Platelets Auto (Bld) [#/Vol] Ordered By: Tamera Randall on 04-29-2023 Platelets (Bld) [#/Vol] 276 10*3/uL 150-450 [facility] Potassium [Moles/volume] in Serum or PlasmaOrdered By: Tamera Randall on 04-29-2023 Potassium [Moles/Vol] 4.3 mmol/L 3.5-5.1 [facility] Protein [Mass/volume] in Ser um or PlasmaOrdered By: Tamera Randall on 04-29-2023 Protein [Mass/Vol] 7.1 g/dL 6.4-8.9 [facility] RBC Auto (Bld) [#/Vol]Ordere d By: Tamera Randall on 04-29-2023 RBC (Bld) [#/Vol] 3.80 10*6/uL 3.60-5.00 [place] Serum or plasma albumin/glob ulin mass ratioOrdered By: Tamera Tonia on 04-29-2023 Albumin/Globulin [Mass ratio] 1.6 {ratio} [facility] Serum or plasma anion gap de terminationOrdered By: Tameraluke Randall on 04-29-2023 Anion gap [Moles/Vol] 9.0 mmol/L 6.0-15.0 [facility] Sodium [Moles/volume] in Ser um or PlasmaOrdered By: Tamera Randall on 04-29-2023 Sodium [Moles/Vol] 132 mmol/L 136-145 [facility] Urea nitrogen [Mass/volume] in Serum or PlasmaOrdered By: Tamera Randall on 04-29-2023 Urea nitrogen [Mass/Vol] 18 mg/dL 7-25 [facility] WBC Auto (Bld) [#/Vol]Ordere d By: Tamera Tonia on 04-29-2023 WBC (Bld) [#/Vol] 4.8 10*3/uL 3.8-11.6 [facility] MM screening mammo BI w/CADo n 01-08-2023 MM screening mammo BI w/[place] [address] Mammography Report Signed Patient: Zeynep Abbasi MR#: [id number] : 1950 Acct:[id number] Age/Sex: 72 / F ADM Date: 01/08/23 Loc: [place] Room: Type: [facility] Attending Dr: José Luis Brennan MD [...] Leidy Dorman M.D.01/08/2023 3:01 PM Dictation Location: [facility] Transcribed By: ARIELLA 01/08/23 1501 Dictated By: Leidy Dorman MD 01/08/23 1458 Signed By: 01/08/23 1501 Normal [facility] XR knee LT 2Von 10-29-2022 XR knee LT 2V [facility] [place] [address] XRay Report Signed Patient: Zeynep Abbasi MR#: [id number] : 1950 Acct:[id number] Age/Sex: 72 / F ADM Date: 10/29/22 Loc: ICXD Room: Type: [facility] Attending Dr: Torie GOLDEN Copies to: [...] Jordan Reyes M.D.10/29/2022 3:11 PM Dictation Location: [place] [address] Transcribed By: [facility] 10/29/22 151 Dictated By: Jordan Reyes II, MD 10/29/221509 Signed By: 10/29/22 151 Normal [facility] Alanine aminotransferase [En zymatic activity/volume] in Serum or PlasmaOrdered By: Tamera Randall on 10-25-2022 ALT [Catalytic activity/Vol] 16 U/L 7-52 [facility] Albumin [Mass/volume] in Ser um or Plasma by Bromocresol green (BCG) dye binding methoOrdered By: Tamera Randall on 10-25-2022 Albumin BCG dye [Mass/Vol] 4.4 g/dL 3.5-5.7 [facility] Alkaline phosphatase [Enzyma tic activity/volume] in Serum or PlasmaOrdered By: Tamera Randall on 10-25-2022 ALP [Catalytic activity/Vol] 72 U/L 34-104 [facility] Aspartate aminotransferase [ Enzymatic activity/volume] in Serum or PlasmaOrdered By: Tamera Randall on 10-25-2022 AST [Catalytic activity/Vol] 21 U/L 13-39 [facility] Basophils Auto (Bld) [#/Vol] Ordered By: Tamera Randall on 10-25-2022 Basophils (Bld) [#/Vol] 0.0 10*3/uL 0.0-0.2 [facility] Basophils/100 WBC Auto (Bld) Ordered By: Tamera Randall on 10-25-2022 Basophils/100 WBC (Bld) 0.7 % . [facility] Bilirubin.total [Mass/volume ] in Serum or PlasmaOrdered By: Tamera Randall on 10-25-2022 Bilirubin [Mass/Vol] 0.7 mg/dL 0.3-1.0 [facility] Calcium [Mass/volume] in Ser um or PlasmaOrdered By: Tamera Randall on 10-25-2022 Calcium [Mass/Vol] 9.2 mg/dL 8.6-10.3 [facility] Carbon dioxide, total [Moles /volume] in Serum or PlasmaOrdered By: Tamera Randall on 10-25-2022 CO2 [Moles/Vol] 27.0 mmol/L 21.0-31.0 [facility] Chloride [Moles/volume] in S jl or PlasmaOrdered By: Tamera Randall on 10-25-2022 Chloride [Moles/Vol] 98 mmol/L 98-107 [facility] Creatinine [Mass/volume] in Serum or PlasmaOrdered By: Tamera Randall on 10-25-2022 Creatinine [Mass/Vol] 0.70 mg/dL 0.60-1.20 [facility] Eosinophils Auto (Bld) [#/Vo l]Ordered By: Tamera Randall on 10-25-2022 Eosinophils (Bld) [#/Vol] 0.2 10*3/uL 0.0-0.45 [facility] Eosinophils/100 WBC Auto (Bl d)Ordered By: Tamera Randall on 10-25-2022 Eosinophils/100 WBC (Bld) 3.2 % . [facility] Erythrocyte distribution wid th Auto (RBC) [Ratio]Ordered By: Tamera Randall on 10-25-2022 Erythrocyte distribution width (RBC) [Ratio] 13.5 % 11.9-15.3 [facility] Erythrocyte sedimentation ra te by Photometric methodOrdered By: Tamera Randall on 10-25-2022 ESR Photometric method (Bld) [Velocity] 23 mm/hr 0-29 [facility] Globulin Calc (S) [Mass/Vol] Ordered By: Tamera Randall on 10-25-2022 Globulin (S) [Mass/Vol] 2.5 g/dL [facility] Glucose [Mass/volume] in Ser um or PlasmaOrdered By: Tamera Randall on 10-25-2022 Glucose [Mass/Vol] 86 mg/dL 70-100 [facility] Comment on above: ADA recommended refe rence rangeRandom Glucose Reference Range is dependent on time and content of last meal. Glucose of more than 200 mg/dL in a nonstressed, ambulatory subject supports the diagnosis of Diabetes Mellitus. Hematocrit Auto (Bld) [Volum e fraction]Ordered By: Tamera Randall on 10-25-2022 Hematocrit (Bld) [Volume fraction] 35.7 % 34.0-46.4 [facility] Hemoglobin [Mass/volume] in BloodOrdered By: Tamera Randall on 10-25-2022 Hemoglobin (Bld) [Mass/Vol] 12.1 g/dL 11.8-15.4 [facility] Leukocytes [#/volume] correc taylor for nucleated erythrocytes in Blood by Automated counOrdered By: Tamera Randall on 10-25-2022 WBC corrected for nucl RBC Auto (Bld) [#/Vol] 4.9 10*3/uL 3.8-11.6 [facility] Lymphocytes Auto (Bld) [#/Vo l]Ordered By: Tamera Randall on 10-25-2022 Lymphocytes (Bld) [#/Vol] 1.4 10*3/uL 1.00-4.8 [facility] Lymphocytes/100 WBC Auto (Bl d)Ordered By: Tamera Randall on 10-25-2022 Lymphocytes/100 WBC (Bld) 28.5 % . [facility] MCH Auto (RBC) [Entitic mass ]Ordered By: Tamera Randall on 10-25-2022 MCH (RBC) [Entitic mass] 30.4 pg 24.7-34.3 [facility] MCHC Auto (RBC) [Mass/Vol]Or dered By: Tamera Randall on 10-25-2022 MCHC (RBC) [Mass/Vol] 33.9 g/dL 32.0-35.0 [facility] MCV Auto (RBC) [Entitic vol] Ordered By: Tamera Randall on 10-25-2022 MCV (RBC) [Entitic vol] 89.6 fL 80-100 [facility] Monocytes Auto (Bld) [#/Vol] Ordered By: Tamera Randall on 10-25-2022 Monocytes (Bld) [#/Vol] 0.4 10*3/uL 0.0-0.8 [facility] Monocytes/100 WBC Auto (Bld) Ordered By: Tamera Randall on 10-25-2022 Monocytes/100 WBC (Bld) 8.7 % . [facility] Neutrophils Auto (Bld) [#/Vo l]Ordered By: Tamera Randall on 10-25-2022 Neutrophils (Bld) [#/Vol] 2.9 10*3/uL 1.8-7.7 [facility] Neutrophils/100 WBC Auto (Bl d)Ordered By: Tamera Randall on 10-25-2022 Neutrophils/100 WBC (Bld) 58.9 % . [facility] No Panel InformationOrdered By: Tamera Randall on 10-25-2022 Estimated GFR (CKD-EPI) > 60.0 mL/Min [facility] Creatinine Clearance (Chem N/A [facility] Nucleated erythrocytes [Pres ence] in Blood by Automated countOrdered By: Tamera Randall on 10-25-2022 Nucleated RBC Auto Ql (Bld) 0.2 /100{WBC} 0-0.5 [facility] Platelet mean volume Auto (B ld) [Entitic vol]Ordered By: Tamera Randall on 10-25-2022 Platelet mean volume (Bld) [Entitic vol] 8.6 fL 6.3-10.7 [facility] Platelets Auto (Bld) [#/Vol] Ordered By: Tamera Randall on 10-25-2022 Platelets (Bld) [#/Vol] 266 10*3/uL 150-450 [facility] Potassium [Moles/volume] in Serum or PlasmaOrdered By: Tamera Randall on 10-25-2022 Potassium [Moles/Vol] 4.1 mmol/L 3.5-5.1 [facility] Protein [Mass/volume] in Ser um or PlasmaOrdered By: Tamera Randall on 10-25-2022 Protein [Mass/Vol] 6.9 g/dL 6.4-8.9 [facility] RBC Auto (Bld) [#/Vol]Ordere d By: Tamera Randall on 10-25-2022 RBC (Bld) [#/Vol] 3.99 10*6/uL 3.60-5.00 [place] Serum or plasma albumin/glob ulin mass ratioOrdered By: Tamera Randall on 10-25-2022 Albumin/Globulin [Mass ratio] 1.8 {ratio} [facility] Serum or plasma anion gap de terminationOrdered By: Tamera Randall on 10-25-2022 Anion gap [Moles/Vol] 12.1 mmol/L 6.0-15.0 [facility] Sodium [Moles/volume] in Ser um or PlasmaOrdered By: Tamera Randall on 10-25-2022 Sodium [Moles/Vol] 133 mmol/L 136-145 [facility] Urea nitrogen [Mass/volume] in Serum or PlasmaOrdered By: Tamera Randall on 10-25-2022 Urea nitrogen [Mass/Vol] 15 mg/dL 7-25 [facility] WBC Auto (Bld) [#/Vol]Ordere d By: Tamera Randall on 10-25-2022 WBC (Bld) [#/Vol] 4.9 10*3/uL 3.8-11.6 [facility] XR Knee Complete Right*on XR Knee Complete Right* HISTORY: Posteri or knee pain with redness and swelling. COMPARISON: Radiograph 01/21/2019 TECHNIQUE: AP, lateral, and oblique views. FINDINGS: No acute fracture or dislocation. Joint spaces are maintained. Small joint effusion. Soft tissues are within normal limits. IMPRESSION: No acute osseous abnormality. Report reported and signed by Juan Wan on 07/19/2022 1225 Normal [facility] [employer] VITAMIN D 25 OHon 07-15-2022 VIT D 25-OH 55.7 ng/mL Normal [facility] Comment on above: Performed By: #### V ITAD #### [facility] [address] [place], [place] [address] Dr. Aniceto Elizondo VIT D RANGES SEE BELOW Normal [facility] Comment on above: Result Comment: <20 ng/mL Vit D deficient 20 - <30 ng/mL Vit D insufficient 30 - 100 ng/mL Vit D sufficient >100 ng/mL Potential Toxicity Performed By: #### V ITAD #### [facility] [address] [place], [place] [address] Dr. Aniceto Elizondo Albumin [Mass/volume] in Ser um or PlasmaOrdered By: Tamera Randall on 04-25-2022 Albumin [Mass/Vol] 4.0 g/dL 3.2-5.5 [facility] Basophils Auto (Bld) [#/Vol] Ordered By: Tamera Randall on 04-25-2022 Basophils (Bld) [#/Vol] 0.1 10*3/uL 0.0-0.2 [facility] Basophils/100 WBC Auto (Bld) Ordered By: Tamera Randall on 04-25-2022 Basophils/100 WBC (Bld) 1.1 % . [facility] Creatinine and Glomerular fi ltration rate.predicted panel (S/P/Bld)Ordered By: Tamera Randall on 04-25-2022 Creatinine [Mass/Vol] 0.64 mg/dL 0.44-1.03 [facility] Eosinophils Auto (Bld) [#/Vo l]Ordered By: Tamera Randall on 04-25-2022 Eosinophils (Bld) [#/Vol] 0.2 10*3/uL 0.0-0.45 [facility] Eosinophils/100 WBC Auto (Bl d)Ordered By: Tamera Randall on 04-25-2022 Eosinophils/100 WBC (Bld) 2.9 % . [facility] Erythrocyte distribution wid th Auto (RBC) [Ratio]Ordered By: Tamera Randall on 04-25-2022 Erythrocyte distribution width (RBC) [Ratio] 13.6 % 11.9-15.3 [facility] Erythrocyte sedimentation ra te by Photometric methodOrdered By: Tamera Randall on 04-25-2022 ESR Photometric method (Bld) [Velocity] 21 mm/hr 0-29 [facility] Estimated glomerular filtrat ion rate (GFR) non- AmericanOrdered By: Tamera Randall on 04-25-2022 GFR/1.73 sq M.predicted among non-blacks MDRD (S/P/Bld) [Vol rate/Area] > 60 mL/Min [facility] Globulin Calc (S) [Mass/Vol] Ordered By: Tamera Randall on 04-25-2022 Globulin (S) [Mass/Vol] 2.7 g/dL [facility] Hematocrit Auto (Bld) [Volum e fraction]Ordered By: Tamera Randall on 04-25-2022 Hematocrit (Bld) [Volume fraction] 35.1 % 34.0-46.4 [facility] Hemoglobin [Mass/volume] in BloodOrdered By: Tamera Randall on 04-25-2022 Hemoglobin (Bld) [Mass/Vol] 11.9 g/dL 11.8-15.4 [facility] - Hematology and Cell countsOrdered By: Tamera Randall on 04-25-2022 Nucleated RBC/100 WBC (Bld) [Ratio] 0.1 % 0-0.5 [facility] Leukocytes [#/volume] in Blo od by Automated countOrdered By: Tamera Randall on 04-25-2022 WBC (Bld) [#/Vol] 5.6 10*3/uL 4.5-11.0 [facility] Lymphocytes Auto (Bld) [#/Vo l]Ordered By: Tamera Randall on 04-25-2022 Lymphocytes (Bld) [#/Vol] 1.7 10*3/uL 1.00-4.8 [facility] Lymphocytes/100 WBC Auto (Bl d)Ordered By: Tamera Randall on 04-25-2022 Lymphocytes/100 WBC (Bld) 29.8 % . [facility] MCH Auto (RBC) [Entitic mass ]Ordered By: Tamera Randall on 04-25-2022 MCH (RBC) [Entitic mass] 30.7 pg 24.7-34.3 [facility] MCHC Auto (RBC) [Mass/Vol]Or dered By: Tamera Randall on 04-25-2022 MCHC (RBC) [Mass/Vol] 33.9 g/dL 32.0-35.0 [facility] MCV Auto (RBC) [Entitic vol] Ordered By: Tamera Randall on 04-25-2022 MCV (RBC) [Entitic vol] 90.6 fL 80-100 [facility] Monocytes Auto (Bld) [#/Vol] Ordered By: Tamera Randall on 04-25-2022 Monocytes (Bld) [#/Vol] 0.5 10*3/uL 0.0-0.8 [facility] Monocytes/100 WBC Auto (Bld) Ordered By: Tamera Randall on 04-25-2022 Monocytes/100 WBC (Bld) 8.4 % . [facility] Neutrophils Auto (Bld) [#/Vo l]Ordered By: Tamera Randall on 04-25-2022 Neutrophils (Bld) [#/Vol] 3.2 10*3/uL 1.8-7.7 [facility] Neutrophils/100 WBC Auto (Bl d)Ordered By: Tamera Randall on 04-25-2022 Neutrophils/100 WBC (Bld) 57.8 % . [facility] No Panel InformationOrdered By: Tamera Randall on 04-25-2022 Estimated GFR () > 60 mL/Min [facility] Comment on above: GFR estimated refere nce range: According to KDOQI guidelines, <60 ml/min/1.73m2 is sufficient to diagnose a patient with chronic kidney disease. Pharmacy Creatinine Clearance (Chem N/A [facility] Platelet mean volume Auto (B ld) [Entitic vol]Ordered By: Tamera Randall on 04-25-2022 Platelet mean volume (Bld) [Entitic vol] 8.7 fL 6.3-10.7 [facility] Platelets Auto (Bld) [#/Vol] Ordered By: Tamera Randall on 04-25-2022 Platelets (Bld) [#/Vol] 353 10*3/uL 150-450 [facility] Protein [Mass/volume] in Ser um or PlasmaOrdered By: Tamera Randall on 04-25-2022 Protein [Mass/Vol] 6.7 g/dL 6.1-7.9 [facility] RBC Auto (Bld) [#/Vol]Ordere d By: Tamera Randall on 04-25-2022 RBC (Bld) [#/Vol] 3.87 10*6/uL 3.60-5.00 [place] Serum or plasma alanine craig otransferase measurement without P-5'-P (enzymatic activiOrdered By: Tamera Randall on 04-25-2022 ALT No additional P-5'-P [Catalytic activity/Vol] 23 U/L 1060 [facility] Serum or plasma albumin/glob ulin mass ratioOrdered By: Tamera Randall on 04-25-2022 Albumin/Globulin [Mass ratio] 1.5 {ratio} [facility] Serum or plasma alkaline lakisha sphatase measurement (enzymatic activity/volume)Ordered By: Tamera Randall on 04-25-2022 ALP [Catalytic activity/Vol] 72 U/L 32-92 [facility] Serum or plasma anion gap de terminationOrdered By: Tamera Randall on 04-25-2022 Anion gap [Moles/Vol] 14.0 mmol/L 6.0-15.0 [facility] Serum or plasma aspartate am inotransferase measurement (enzymatic activity/volume)Ordered By: Tamera Randall on 04-25-2022 AST [Catalytic activity/Vol] 26 U/L [facility] Serum or plasma calcium yvonne urement (mass/volume)Ordered By: Tamera Randall on 04-25-2022 Calcium [Mass/Vol] 9.8 mg/dL 8.2-10.2 [facility] Serum or plasma chloride elpidio surement (moles/volume)Ordered By: Tamera Randall on 04-25-2022 Chloride [Moles/Vol] 95 mmol/L 95-114 [facility] Serum or plasma glucose yvonne urement (mass/volume)Ordered By: Tamera Randall on 04-25-2022 Glucose [Mass/Vol] 92 mg/dL 70-100 [facility] Comment on above: ADA recommended refe rence rangeRandom Glucose Reference Range is dependent on time and content of last meal. Glucose of more than 200 mg/dL in a nonstressed, ambulatory subject supports the diagnosis of Diabetes Mellitus. Serum or plasma potassium me asurement (moles/volume)Ordered By: Tamera Randall on 04-25-2022 Potassium [Moles/Vol] 4.6 mmol/L 3.5-5.1 [facility] Serum or plasma sodium measu rement (moles/volume)Ordered By: Tamera Randall on 04-25-2022 Sodium [Moles/Vol] 130 mmol/L 136-146 [facility] Serum or plasma total biliru bin measurement (mass/volume)Ordered By: Tamera Randall on 04-25-2022 Bilirubin [Mass/Vol] 0.7 mg/dL 0.3-1.2 [facility] Serum or plasma total carbon dioxide measurement (moles/volume)Ordered By: Tamera Randall on 04-25-2022 CO2 [Moles/Vol] 25.6 mmol/L 22.0-30.0 [facility] Serum or plasma urea nitroge n measurement (mass/volume)Ordered By: Tamera Suarezrow on 04-25-2022 Urea nitrogen [Mass/Vol] 13 mg/dL 03-[address] [facility] [address] Abdomen/Pelvis w/ Contras ton 04-17-2022 CT [...] by Ky Carvalho on 04/17/[address] [facility] XR Abdomen 2 Viewson 022 [...] by Juan Wan on 04/10/[address] [facility] Covid-19 PCR (CVDTBH)on 02-05 SARS-CoV-2 (COVID-19) RNA NICOLASA+probe Ql (Unsp spec) Not detected Normal NOT DETECTED [facility] Comment on above: Result Comment: This test is not yet approved or cleared by the [place] FDA. When there are no FDA-approved or cleared tests available, and other criteria are met, FDA can make tests available under an emergency access mechanism called an Emergency Use Authorization (EUA). The EUA for this test is supported by the [place] of Health and Human Service's (HHS's) declaration [...] consistent with SARS-CoV-2. Performed By: #### C VDTB #### [facility] [address] [place] [address] [address] Aniceto Elizondo LIPID PROFILEon 02-11-2022 CHOL-HDL RATIO NORM SEE BELOW Normal [facility] Comment on above: Result Comment: 3.3 - 4.4 LOW RISK 4.4 - 7.1 AVERAGE RISK 7.1 - 11.0 MODERATE RISK >11.0 HIGH RISK Performed By: #### L IPID, CMP #### [facility] [address] [place] [address] [address] Aniceto Elizondo Cholesterol [Mass/Vol] 179 mg/dL Normal <=200 [facility] Comment on above: Performed By: #### L IPID, CMP #### [facility] [address] [place] [address] [address] Aniceto Elizondo Cholesterol in HDL [Mass/Vol] 44 mg/dL Normal 40-60 [facility] Comment on above: Performed By: #### L IPID, CMP #### [facility] [address] [place] [address] [address] Aniceto Elizondo Cholesterol in LDL [Mass/Vol] 94.2 mg/dL Normal [facility] Comment on above: Performed By: #### L IPID, CMP #### [facility] [address] [place] [address] [address] Aniceto Elizondo Cholesterol.total/Joselyn sterol in HDL [Mass ratio] 4.1 {ratio} Normal [facility] Comment on above: Performed By: #### L IPID, CMP #### [facility] [address] [place] [address] [address] Aniceto Elizondo HDL NORMAL > or = 60 mg/dl - LO W CARDIOVASCULAR RISK <40 mg/dl - HIGH CARDIOVASCULAR RISK Normal [facility] Comment on above: Performed By: #### L IPID, CMP #### [facility] [address] [place] [address] [address] Aniceto Elizondo LDL CALC NORMAL SEE BELOW Normal [facility] Comment on above: Result Comment: <100 mg/dl OPTIMAL 100 - 129 mg/dl NEAR OR ABOVE OPTIMAL 130 - 159 mg/dl BORDERLINE HIGH 160 - 189 mg/dl HIGH >190 mg/dl VERY HIGH Performed By: #### L IPID, CMP #### [facility] [address] [place] [address] [address] Aniceto Elizondo Triglyceride [Mass/Vol] 204 mg/dL Critically high <=150 [facility] Comment on above: Performed By: #### L IPID, CMP #### [facility] [address] [place] [address] [address] Aniceto Elizondo VLDL CALC 40.8 mg/dL Normal [facility] Comment on above: Performed By: #### L IPID, CMP #### [facility] [address] [place] [address] [address] Aniceto Elizondo PROF 14(COMP METB)on 022 Albumin [Mass/Vol] 3.8 g/dL Normal 3.4-5.0 [facility] Comment on above: Performed By: #### L IPID, CMP #### [facility] [address] [place] [address] Dr. Aniceot Elizondo Albumin/Globulin [Mass ratio] 1.0 {ratio} Normal [facility] Comment on above: Performed By: #### L IPID, CMP #### [facility] [address] [place] [address] Dr. Aniceto Elizondo ALP [Catalytic activity/Vol] 76 U/L Normal 46-116 [facility] Comment on above: Performed By: #### L IPID, CMP #### [facility] [address] [place] [address] Dr. Aniceto Elizondo ALT [Catalytic activity/Vol] 24 U/L Normal 14-59 [facility] Comment on above: Performed By: #### L IPID, CMP #### [facility] [address] [address] [address] Aniceto Elizondo Anion gap [Moles/Vol] 14.2 mmol/L Normal [facility] Comment on above: Performed By: #### L IPID, CMP #### [facility] [address] [place] [address] Dr. Aniceto Elizondo AST [Catalytic activity/Vol] 25 U/L Normal 15-37 [facility] Comment on above: Performed By: #### L IPID, CMP #### [facility] [address] [address] [address] Aniceto Elizondo Bilirubin [Mass/Vol] 0.6 mg/dL Normal 0.2-1.0 [facility] Comment on above: Performed By: #### L IPID, CMP #### [facility] [address] [place] [address] Dr. Aniceto Elizondo Calcium [Mass/Vol] 9.1 mg/dL Normal 8.5-10.1 [facility] Comment on above: Performed By: #### L IPID, CMP #### [facility] [address] [place] [address] Dr. Aniceto Elizondo Chloride [Moles/Vol] 99 mmol/L Normal 98-107 [facility] Comment on above: Performed By: #### L IPID, CMP #### [facility] [address] [place] [address] Dr. Aniceto Elizondo CO2 [Moles/Vol] 28.3 mmol/L Normal 21.0-32.0 [facility] Comment on above: Performed By: #### L IPID, CMP #### [facility] [address] [place] [address] Dr. Aniceto Elizondo Creatinine [Mass/Vol] 0.64 mg/dL Normal 0.55-1.02 [facility] Comment on above: Performed By: #### L IPID, CMP #### [facility] [address] [place] [address] Dr. Aniceto Elizondo EGFR-AF BURUNDIAN >60 Normal >=60 [facility] Comment on above: Performed By: #### L IPID, CMP #### [facility] [address] [place] [address] Dr. Aniceto Elizondo EGFR-NON AF BURUNDIAN >60 Normal >=60 [facility] Comment on above: Performed By: #### L IPID, CMP #### [facility] [address] [place] [address] Dr. Aniceto Elizondo Globulin (S) [Mass/Vol] 3.7 g/dL Normal T [facility] Comment on above: Performed By: #### L IPID, CMP #### [facility] [address] [address] [address] nAiceto Elizondo Glucose [Mass/Vol] 102 mg/dL Normal 74-106 [facility] Comment on above: Performed By: #### L IPID, CMP #### [facility] [address] [place] [address] Dr. Aniceto Elizondo Potassium [Moles/Vol] 4.5 mmol/L Normal 3.5-5.1 [facility] Comment on above: Performed By: #### L IPID, CMP #### [facility] [address] [place] [address] Dr. Aniceto Elizondo Protein [Mass/Vol] 7.5 g/dL Normal 6.4-8.2 [facility] Comment on above: Performed By: #### L IPID, CMP #### [facility] [address] [place] [address] Dr. Aniceto Elizondo Sodium [Moles/Vol] 137 mmol/L Normal 136-145 [facility] Comment on above: Performed By: #### L IPID, CMP #### [facility] [address] [place] [address] Dr. Aniceto Elizondo Urea nitrogen [Mass/Vol] 12.0 mg/dL Normal 7.0-18.0 [facility] Comment on above: Performed By: #### L IPID, CMP #### [facility] [address] [place] [address] Dr. Aniceto Elizondo Urea nitrogen/Creatinine [Mass ratio] 18.8 mg/mg Normal [facility] Comment on above: Performed By: #### L IPID, CMP #### [facility] [address] [place] [address] Dr. Aniceto Elizondo COVID-19 SOFIAOrdered By: Maritza Gutierrez on 01-29-2022 SARS-CoV+SARS-CoV-2 (COVID-19) Ag IA.rapid Ql (Resp) Negative Negative [facility] Comment on above: This is a duplicate Michelle SARS Antigen (DUNG) result to be used for statistical tracking purpose only. No Panel InformationOrdered By: Jordan Gutierrez on 01-29-2022 SARS Antigen (LFIA) [place] [facility]OGRAM [facility] PLATELon 2021 Hematocrit (Bld) [Volume fraction] 34.5 % Critically low 36.0-48.0 [facility] Comment on above: Performed By: #### H H #### [facility] [address] [place] [address] Dr. Aniceto Elizondo Hemoglobin (Bld) [Mass/Vol] 11.6 g/dL Critically low 12.0-16.0 [facility] Comment on above: Performed By: #### H H #### [facility] [address] [place] [address] Dr. Aniceto Elizondo MCH (RBC) [Entitic mass] 30.9 pg Normal 26.7-34.0 [facility] Comment on above: Performed By: #### H H #### [facility] [address] [place] [address] Dr. Aniceto Elizondo MCHC (RBC) [Mass/Vol] 33.6 g/dL Normal 29.9-35.2 [facility] Comment on above: Performed By: #### H H #### [facility] [address] [place] [address] Dr. Aniceto Elizondo MCV (RBC) [Entitic vol] 91.8 fL Normal 81.0-99.0 [facility] Comment on above: Performed By: #### H H #### [facility] [address] [place] [address] Dr. Aniceto Elizondo PLT 294 103/ul Normal 150-450 [facility] Comment on above: Performed By: #### H H #### [facility] [address] [place] [address] Dr. Aniceto Elizondo RBC 3.76 106/ul Critically low 4.20-5.40 [facility] Comment on above: Performed By: #### H H #### [facility] [address] [place] [address] Dr. Aniceto Elizondo WBC 6.0 103/ul Normal 4.0-11.0 [facility] Comment on above: Performed By: #### H H #### [facility] [address] [place] [address] Dr. Aniceto Elizondo MAGNESIUMon 11-21-2021 Magnesium [Mass/Vol] 2.2 mg/dL Normal 1.8-2.4 [facility] Comment on above: Performed By: #### U RAMON, RENAL, MG #### [facility] [address] [address] [address] Aniceto Elizondo RENAL FUNCTION PANELon 11-21 Albumin [Mass/Vol] 3.8 g/dL Normal 3.4-5.0 [facility] Comment on above: Performed By: #### U RAMON, RENAL, MG #### [facility] [address] [place] [address] Dr. Aniceto Elizondo Calcium [Mass/Vol] 8.9 mg/dL Normal 8.5-10.1 [facility] Comment on above: Performed By: #### U RAMON, RENAL, MG #### [facility] [address] [place] [address] Dr. Aniceto Elizondo Chloride [Moles/Vol] 97 mmol/L Critically low 98-107 [facility] Comment on above: Performed By: #### U RAMON, RENAL, MG #### [facility] [address] [place] [address] Dr. Aniceto Elizondo CO2 [Moles/Vol] 27.1 mmol/L Normal 21.0-32.0 [facility] Comment on above: Performed By: #### U RAMON, RENAL, MG #### [facility] [address] [place] [address] Dr. Aniceto Elizondo Creatinine [Mass/Vol] 0.66 mg/dL Normal 0.55-1.02 [facility] Comment on above: Performed By: #### U RAMON, RENAL, MG #### [facility] [address] [place] [address] Dr. Aniceto Elizondo EGFR-AF BURUNDIAN >60 Normal >=60 [facility] Comment on above: Performed By: #### U RAMON, RENAL, MG #### [facility] [address] [address] [address] Aniceto Elizondo EGFR-NON AF BURUNDIAN >60 Normal >=60 [facility] Comment on above: Performed By: #### U RAMON, RENAL, MG #### [facility] [address] [place], [place] [address] Dr. Aniceto Elizondo Glucose [Mass/Vol] 101 mg/dL Normal 74-106 [facility] Comment on above: Performed By: #### U RAMON, RENAL, MG #### [facility] [address] [address] [address] Aniceto Elizondo Phosphate [Mass/Vol] 4.1 mg/dL Normal 2.6-4.7 [facility] Comment on above: Performed By: #### U RAMON, RENAL, MG #### [facility] [address] [address] [address] Aniceto Elizondo Potassium [Moles/Vol] 4.5 mmol/L Normal 3.5-5.1 [facility] Comment on above: Performed By: #### U RAMON, RENAL, MG #### [facility] [address] [address] [address] Aniceto Elizondo Sodium [Moles/Vol] 131 mmol/L Critically low 136-145 [facility] Comment on above: Performed By: #### U RAMON, RENAL, MG #### [facility] [address] [address] [address] Aniceto Elizondo Urea nitrogen [Mass/Vol] 16.0 mg/dL Normal 7.0-18.0 [facility] Comment on above: Performed By: #### U RAMON, RENAL, MG #### [facility] [address] [address] [address] Aniceto Elizondo UA RANDOM W/MICROSCOPICon BACTERIA NONE SEEN Normal NONE SEEN [facility] Comment on above: Performed By: #### U AMIC #### [facility] [address] [address] [address] Aniceto Elizondo Bilirubin Ql (U) Negative Normal NEGATIVE [facility] Comment on above: Performed By: #### U AMIC #### [facility] [address] [address] [address] Aniceto Elizondo CAST NONE SEEN Normal NONE SEEN [facility] Comment on above: Performed By: #### U AMIC #### [facility] [address] [address] [address] Aniceto Elizondo Clarity (U) CLEAR Normal CLEAR [facility] Comment on above: Performed By: #### U AMIC #### [facility] [address] [address] [address] Aniceto Elizondo Color (U) YELLOW Normal YELLOW [facility] Comment on above: Performed By: #### U AMIC #### [facility] [address] [place] [address] Dr. Aniceto Elizondo Crystals LM Nom (Urine sed) NONE SEEN Normal NONE SEEN [facility] Comment on above: Performed By: #### U AMIC #### [facility] [address] [place] [address] Dr. Aniceto Elizondo Epithelial cells LM Ql (Urine sed) FEW Abnormal NONE SEEN /RARE [facility] Comment on above: Performed By: #### U AMIC #### [facility] [address] [place] [address] Dr. Aniceto Elizondo Glucose Ql (U) Negative Normal NEGATIVE [facility] Comment on above: Performed By: #### U AMIC #### [facility] [address] [place] [address] Dr. Aniceto Elizondo Hemoglobin Ql (U) Negative Normal NEGATIVE [facility] Comment on above: Performed By: #### U AMIC #### [facility] [address] [place] [address] Dr. Aniceto Elizondo Ketones Ql (U) Negative Normal NEGATIVE [facility] Comment on above: Performed By: #### U AMIC #### [facility] [address] [place] [address] Dr. Aniceto Elizondo LEUKOCYTES Negative Normal NEGATIVE [facility] Comment on above: Performed By: #### U AMIC #### [facility] [address] [place] [address] Dr. Aniceto Elizondo MUCOUS NONE SEEN Normal NONE SEEN [facility] Comment on above: Performed By: #### U AMIC #### [facility] [address] [place] [address] Dr. Aniceto Elizondo Nitrite Ql (U) Negative Normal NEGATIVE [facility] Comment on above: Performed By: #### U AMIC #### [facility] [address] [address] [address] Aniceto Elizondo pH (U) 7.0 [pH] Normal 5-9 [facility] Comment on above: Performed By: #### U AMIC #### [facility] [address] [place] [address] Dr. Aniceto Elizondo RBC NONE SEEN Abnormal 0-2 [facility] Comment on above: Performed By: #### U AMIC #### [facility] [address] [place] [address] Dr. Aniceto Elizondo SPEC GRAVITY <=1.005 Abnormal 1.005-<=1.02 5 [facility] Comment on above: Performed By: #### U AMIC #### [facility] [address] [place] [address] Dr. Aniceto Elizondo UA PROTEIN Negative Normal NEGATIVE/ TRACE [facility] Comment on above: Performed By: #### U AMIC #### [facility] [address] [place] [address] Dr. Aniceto Elizondo Urobilinogen Qn (U) 0.2 {Ada'U}/dL Normal 0.2 - 1. 0 [facility] Comment on above: Performed By: #### U AMIC #### [facility] [address] [place] [address] Dr. Aniceto Elizondo WBC NONE SEEN Normal NONE SEEN [facility] Comment on above: Performed By: #### U AMIC #### [facility] [address] [place] [address] Dr. Aniceto Elizondo URIC ACID SERUMon 11-21-2021 Urate [Mass/Vol] 3.4 mg/dL Normal 2.6-6.0 [facility] Comment on above: Performed By: #### U RAMON, RENAL, MG #### [facility] [address] [address] [address] Aniceto Elizondo URINE T PROTEIN CREAT RATIOo n 11-21-2021 UR PROT CREAT RAT 0.40 Normal [facility] Comment on above: Performed By: #### U RTPCR #### [facility] [address] [address] [address] Aniceto Elizondo UR TOTAL PROTEIN <6.0 Normal <=12.0 [facility] Comment on above: Performed By: #### U RTPCR #### [facility] [address] [address] [address] Aniceto Elizondo URINE CREAT 14.89 mg/dL Critically low 20.00-300.00 [facility] Comment on above: Performed By: #### U RTPCR #### [facility] [address] [place] [address] Dr. Aniceto Elizondo VITAMIN D 25 OHon 11-21-2021 VIT D 25-OH 50.4 ng/mL Normal [facility] Comment on above: Performed By: #### V ITAD #### [facility] [address] [place] [address] Dr. Aniceto Elizondo VIT D RANGES SEE BELOW Normal [facility] Comment on above: Result Comment: <20 ng/mL Vit D deficient 20 - <30 ng/mL Vit D insufficient 30 - 100 ng/mL Vit D sufficient >100 ng/mL Potential Toxicity Performed By: #### V ITAD #### [facility] [address] [place] [address] Dr. Aniceto Elizondo CNOVon 05-03-2021 CNOV Office Visit (VASSMN ) ZEYNEP ABBASI ([id number]) 1950 F Date Time Provider Department 05/03/21 11:30 AM JOSE G WELLS During your visit today, we recorded the following information about you: Pulse Blood pressure 83/minute 182/94 Jose G Wells MD 05/04/2021 10:18 AM Unsigned Sound Engineering Technician NAME: ZEYNEP ABBASI CLINIC NO: [id number] DATE OF SERVICE: 05/03/2021 DATE OF : [...] She has had an ultrasound done at [facility] that was done in February which [...] Jose G Wells M.D. 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 THIS DOCUMENT IS NOT AVAILABLE FOR PATIENT CARE * * * Document text: NAME: ZEYNEP ABBASI CLINIC NO: [id number] DATE OF SERVICE: 05/03/2021 DATE OF : 1950 She is here to see me in follow-up for a le (more content not included)... Normal [facility] CNPNon 02-22-2021 CNPN Telephone (PODCCP) ZEYNEP ABBASI ([id number]) 1950 F Date Time Provider Department 02/22/21 [facility] visit today, we recorded the following information about you: Shirley Shay 02/22/2021 2:43 PM Signed Reason for call: Mrs Abbasi called and she would like to schedule a follow up appointment with DR Wells , last seen 04/26/2019. Home and cell number : [phone] Diagnosis Renal Artery stenosis Kind Regards, Shirley Shay Maribeth Shah Coord 02/23/2021 5:13 PM Signed Zeynep [...] Status:Closed by SHIRLEY SHAY on 02/22/21 Normal [facility] Albumin [Mass/volume] in Ser um or Plasmaon 07-05-2020 Albumin [Mass/Vol] 4.2 g/dL 3.2-5.[address] [facility] Automated basophil %on 07-05 Basophils/100 WBC (Bld) 0.6 % [facility] Automated basophil counton 1 Basophils (Bld) [#/Vol] 0.0 10*3/uL 0.0-0.2 [facility] Automated blood lymphocyte c ount (number/volume)on 07-05-2020 Lymphocytes (Bld) [#/Vol] 1.2 10*3/uL 1.00-4.8 [facility] Automated blood lymphocyte c ount as percentage of total leukocyteson 07-05-2020 Lymphocytes/100 WBC (Bld) 16.6 % [facility] Automated blood monocyte cou nton 07-05-2020 Monocytes (Bld) [#/Vol] 0.4 10*3/uL 0.0-0.8 [facility] Automated blood platelet cou nt (count/volume)on 07-05-2020 Platelets (Bld) [#/Vol] 282 10*3/uL 150-450 [facility] Automated blood platelet elpidio n volume measurementon 07-05-2020 Platelet mean volume (Bld) [Entitic vol] 8.7 fL 6.3-10.7 [facility] Automated eosinophil %on Eosinophils/100 WBC (Bld) 0.4 % [facility] Automated eosinophil counton 07-05-2020 Eosinophils (Bld) [#/Vol] 0.0 10*3/uL 0.0-0.45 [facility] Automated erythrocyte distri bution width ratioon 07-05-2020 Erythrocyte distribution width (RBC) [Ratio] 13.7 % 11.9-15.3 [facility] Automated erythrocyte mean c orpuscular hemoglobin (mass per erythrocyte)on 07-05-2020 MCH (RBC) [Entitic mass] 30.2 pg 24.7-34.3 [facility] Automated erythrocyte mean c orpuscular hemoglobin concentration measurement (mass/volon 07-05-2020 MCHC (RBC) [Mass/Vol] 33.1 g/dL 32.0-35.0 [facility] Automated erythrocyte mean c orpuscular volumeon 07-05-2020 MCV (RBC) [Entitic vol] 91.1 fL 80-100 [facility] Automated monocyte %on 07-05 Monocytes/100 WBC (Bld) 5.3 % [facility] Automated neutrophil %on Neutrophils/100 WBC (Bld) 77.1 % [facility] Blood erythrocytes automated count (number/volume)on 07-05-2020 RBC (Bld) [#/Vol] 3.94 10*6/uL 3.60-5.00 [facility] Blood hemoglobin measurement (mass/volume)on 07-05-2020 Hemoglobin (Bld) [Mass/Vol] 11.9 g/dL 11.8-15.4 [facility] Blood leukocytes automated c ount (number/volume)on 07-05-2020 WBC (Bld) [#/Vol] 7.1 10*3/uL 4.5-11.0 [facility] Blood neutrophil count by au tomated method (number/volume)on 07-05-2020 Neutrophils (Bld) [#/Vol] 5.4 10*3/uL 1.8-7.7 [facility] Cholesterol [Mass/volume] in Serum or Plasmaon 07-05-2020 Cholesterol [Mass/Vol] 173 mg/dL 140-200 [facility] Comment on above: Chol less than 200 m g/dl low riskChol 201-239 mg/dl borderline riskChol 240 mg/dl and greater high risk Cholesterol in LDL [Mass/vol ume] in Serum or Plasma by calculationon 07-05-2020 Cholesterol in LDL [Mass/Vol] 93 mg/dL 0-100 [facility] Comment on above: LDL ATP III CLASSIFI CATIONLDL less than 100 mg/dL OptimalLDL 100-129 mg/dL Near or above optimalLDL 130-159 mg/dL Borderline highLDL 160-189 mg/dL HighLDL greater than 189 mg/dL Very high Cholesterol in VLDL [Mass/vo lume] in Serum or Plasma by calculationon 07-05-2020 Cholesterol in VLDL [Mass/Vol] 17 mg/dL [facility] Erythrocyte sedimentation ra te by Photometric methodon 07-05-2020 ESR Photometric method (Bld) [Velocity] 19 mm/hr 0-29 [facility] Estimated glomerular filtrat ion rate (GFR) non- Americanon 07-05-2020 GFR/1.73 sq M predicted among non-blacks MDRD (S/P/Bld) [Vol rate/Area] mL/min/{1.73_m2} [facility] Hematocrit [Volume Fraction] of Blood by Automated counton 07-05-2020 Hematocrit (Bld) [Volume fraction] 35.9 % 34.0-46.4 [facility] Otheron 07-05-2020 GFR/1.73 sq M.predicted MDRD (S/P/Bld) [Vol rate/Area] mL/min/{1.73_m2} [facility] Comment on above: GFR estimated refere nce range: According to KDOQI guidelines, <60 ml/min/1.73m2 is sufficient to diagnose a patient with chronic kidney disease. Nucleated RBC/100 WBC (Bld) [Ratio] 0.0 % 0-0.5 [facility] Creatinine Clearance (Chem N/A [facility] Protein [Mass/volume] in Ser um or Plasmaon 07-05-2020 Protein [Mass/Vol] 7.2 g/dL 6.1-7.9 [facility] Serum globulin measurement b y calculation (mass/volume)on 07-05-2020 Globulin (S) [Mass/Vol] 3.0 g/dL F [facility] Serum or plasma alanine craig otransferase measurement without P-5'-P (enzymatic activion 07-05-2020 ALT No additional P-5'-P [Catalytic activity/Vol] 23 U/L 1060 [facility] Serum or plasma albumin/glob ulin mass ratioon 07-05-2020 Albumin/Globulin [Mass ratio] 1.4 {ratio} [facility] Serum or plasma alkaline lakisha sphatase measurement (enzymatic activity/volume)on 07-05-2020 ALP [Catalytic activity/Vol] 63 U/L 32-92 [facility] Serum or plasma aspartate am inotransferase measurement (enzymatic activity/volume)on 07-05-2020 AST [Catalytic activity/Vol] 27 U/L 10-42 [facility] Serum or plasma calcium yvonne urement (mass/volume)on 07-05-2020 Calcium [Mass/Vol] 9.4 mg/dL 8.2-10.2 [facility] Serum or plasma chloride elpidio surement (moles/volume)on 07-05-2020 Chloride [Moles/Vol] 96 mmol/L 95-114 [facility] Serum or plasma creatinine m easurement with calculation of estimated glomerular filtron 07-05-2020 Creatinine [Mass/Vol] 0.64 mg/dL 0.44-1.03 [facility] Serum or plasma glucose yvonne urement (mass/volume)on 07-05-2020 Glucose [Mass/Vol] 114 mg/dL 70-100 [facility] Comment on above: ADA recommended refe rence rangeRandom Glucose Reference Range is dependent on time and content of last meal. Glucose of more than 200 mg/dL in a nonstressed, ambulatory subject supports the diagnosis of Diabetes Mellitus. Serum or plasma high density lipoprotein (HDL) cholesterol measurementon 07-05-2020 Cholesterol in HDL [Mass/Vol] 63 mg/dL 35-85 [facility] Comment on above: HDL CHOL ATP-III CLA SSIFICATION Cardiovascular RiskHDL > or equal to 60 mg/dL LOWHDL < 40 mg/dL HIGH Serum or plasma potassium me asurement (moles/volume)on 07-05-2020 Potassium [Moles/Vol] 3.9 mmol/L 3.5-5.1 [facility] Serum or plasma sodium measu rement (moles/volume)on 07-05-2020 Sodium [Moles/Vol] 131 mmol/L 136-146 [facility] Serum or plasma total biliru bin measurement (mass/volume)on 07-05-2020 Bilirubin [Mass/Vol] 0.6 mg/dL 0.3-1.2 [facility] Serum or plasma total carbon dioxide measurement (moles/volume)on 07-05-2020 CO2 [Moles/Vol] 24.3 mmol/L 22.0-30.0 [facility] Serum or plasma total choles terol/high density lipoprotein (HDL) cholesterol mass ashok 07-05-2020 Cholesterol.total/Joselyn sterol in HDL [Mass ratio] 2.7 {ratio} [facility] Serum or plasma urea nitroge n measurement (mass/volume)on 07-05-2020 Urea nitrogen [Mass/Vol] 15 mg/dL 03-29 [facility] Triglyceride [Mass/volume] i n Serum or Plasmaon 07-05-2020 Triglyceride [Mass/Vol] 86 mg/dL 35-149 [facility] Comment on above: TRIG ATP III CLASSIF ICATIONTRIG less than 150 mg/dL NormalTRIG 150-199 mg/dL Borderline highTRIG 200-500 mg/dL High TRIG greater than 500 mg/dL Very highStandard traceable to the [facility] for Disease Conrtrol and Prevention (CDC) test method. Coding Summary.on 06-19-2018 Coding Summary. CODING DATE: 06/19/2018 FINAL [facility] STATUS: Home (Routine DC) PAYOR: [...] Revised Date Saved: 06/19/2018 01:41 pm Normal [facility] Main OR Intraoperative Recor don 06-18-2018 Main OR Intraoperative Record IntraOp Document Type FTURO Summary Primary Physician: Khadar Begum Jr., MD Finalized Date/Time: 06/18/18 14:22:44 Pt. Name: ZEYNEP ABBASI/Sex: 1950 Female Med Rec #: [id number] Physician: Khadar Begum Jr., MD Financial #: [id number] Pt. Type: O Room/Bed: / Admit/Disch: 06/18/18 13:04:11 - Institution: Case Times FTURO Entry 1 Patient Times In Room 06/18/18 14:16:00 Out Room 06/18/18 14:22:00 Procedure Times Start 06/18/18 14:18:00 Stop 06/18/18 14:20:00 Anesthesia Times Last Modified By: Barrera SIMON, RN, Heather 06/18/18 14:20:03 Case Attendance FTURO Entry 1 Entry 2 Entry 3 Case Attendee Kel Lehman MD, Khadar SIMON, RN, [facility], Latasha Romero Role Performed Surgeon - Primary Director Of Trauma - Primary Scrub - Primary Time In 06/18/18 14:16:00 06/18/18 14:16:00 06/18/18 14:16:00 Time Out 06/18/18 14:22:00 06/18/18 14:22:00 06/18/18 14:22:00 Procedure CYSTOSCOPY LOCAL WITH CYSTOSCOPY LOCAL WITH CYSTOSCOPY LOCAL WITH URETHRAL DILATION(.) URETHRAL DILATION(.) URETHRAL DILATION(.) Comments Last Modified By: Barrera SIMON, ISRA, Barrera SIMON, RN, Barrera SIMON, RN, Heather [...] Yes FREQUENCY, URGENCY Last Modified By: Barrera SIMON, Heather DHALIWAL 06/18/18 13:17:22 Post-Care Text: The patient is [...] Position Verified Availability Equipment, Medication Time Out Khadar Begum Jr., MD, Verified (If Participants Barrera SIMON, ISRA, Applicable) Mallory Romero CST, Latasha Nash Time Out Complete 06/18/18 14:17:00 Allergies Reviewed? [...] Barrera SIMON RN, Kelly 06/18/18 14:22 Normal [facility] Main OR Preoperative Recordo n 06-18-2018 Main OR Preoperative Record Holding Area Document Type FTURO Summary Primary Physician: Khadar Begum Jr., MD Finalized Date/Time: 06/18/18 13:22:18 Pt. Name: ZEYNEP ABBASI/Sex: 1950 Female Med Rec #: [id number] Physician: Khadar Begum Jr., MD Financial #: [id number] Pt. Type: O Room/Bed: / Admit/Disch: 06/18/18 [...] Pain: No Comment: pr Skin Integrity Intact, [place], Warm, & Dry Vitals - EU Blood Pressure 155/79 Pulse 78 bpm Respirations 18 br/min SPO2 Last Modified By: Maryan Cortes LPN 06/18/18 13:22:13 Finalized By: Maryan Cortes LPN Document Signatures Signed By: Maryan Cortes LPN 06/18/18 13:22 Normal [facility] Operative Reporton 8 Operative Report Patient: YVAN ABBASI Age: 68 years Sex: Female : 1950 Associated Diagnoses: None Author: Kel Lehman MD, Khadar Mcmillan Procedure Operative Information Details: Date/ Time: 06/18/18 [...] urine. The Urethra was dilated to: 26 [place] w/ sounds. Devices Implanted: None. Removal: Cystoscope is removed, The patient tolerated it well. Postoperative Information Discharge: Patient is discharged home with antibiotic coverage, Follow up arranged. Normal [facility] Comment on above: Result Comment: Elec tronically Signed By: Kel Lehman MD, Khadar Mcmillan\.br\Date and Time Signed: 06/18/18 14:22 EST Social History Date Type Detail Facility Start: 01-31-2022 End: 11-13-2023 Tobacco smoking status NHIS Ex-smoker (finding) [facility] Start: 1950 Sex Assigned At Female F [facility] Tobacco smoking status [facility] Unknown if ever smoked [facility] Sex Assigned At Sex Assigned At [facility] th [facility] Other Vital Signs Date Time Vital Sign Value Performing Clinician Facility 11-28-2023 13:44-0400 Body height 175.26 cm MD Hudson Castañeda Work Phone: [facility] 11-28-2023 13:44-0400 Body mass index (BMI) [Ratio] 25.5 kg/m2 MD Hudson Castañeda Work Phone: [facility] 11-28-2023 13:44-0400 Body temperature 98.1 [degF] MD Hudson Castañeda Work Phone: [facility] 11-28-2023 13:44-0400 Body weight 78.52 kg MD Hudson Castañeda Work Phone: [facility] 11-28-2023 13:44-0400 Diastolic blood pressure 71 mm[Hg] MD Hudson Castañeda Work Phone: [facility] 11-28-2023 13:44-0400 Heart rate 69 /min MD Hudson Castañeda Work Phone: [facility] 11-28-2023 13:44-0400 Respiratory rate 18 /min MD Hudson Castañeda Work Phone: [facility] 11-28-2023 13:44-0400 SaO2% (BldA) [Mass fraction] 95 % MD Hudson Castañeda Work Phone: [facility] 11-28-2023 13:44-0400 Systolic blood pressure 128 mm[Hg] MD Hudson Castañeda Work Phone: [facility] 11-13-2023 11:00-0400 Body height 175.26 cm MD Hudson Castañeda Work Phone: [facility] 11-13-2023 11:00-0400 Body mass index (BMI) [Ratio] 25.5 kg/m2 MD Hudson Castañeda Work Phone: [facility] 11-13-2023 11:00-0400 Body temperature 96.5 [degF] MD Hudson Castañeda Work Phone: [facility] 11-13-2023 11:00-0400 Body weight 78.58 kg MD Hudson Castañeda Work Phone: [facility] 11-13-2023 11:00-0400 Diastolic blood pressure 70 mm[Hg] MD Hudson Castañeda Work Phone: [facility] 11-13-2023 11:00-0400 Heart rate 72 /min MD Hudson Castañeda Work Phone: [facility] 11-13-2023 11:00-0400 Respiratory rate 16 /min MD Hudson Castañeda Work Phone: [facility] 11-13-2023 11:00-0400 SaO2% (BldA) [Mass fraction] 98 % MD Hudson Castañeda Work Phone: [facility] 11-13-2023 11:00-0400 Systolic blood pressure 130 mm[Hg] MD Hudson Castañeda Work Phone: [facility] 12-05-2022 11:00-0400 Body height 175.26 cm Gonsalo Stevens Other [facility] Other 12-05-2022 11:00-0400 Body mass index (BMI) [Ratio] 25.75 kg/m2 Gonsalo You Other [facility] Other 12-05-2022 11:00-0400 Body temperature 96.6 [degF] Gonsalo You Other [facility] Other 12-05-2022 11:00-0400 Body weight 79.11 kg Gonsalo You Other [facility] Other 12-05-2022 11:00-0400 Diastolic blood pressure 72 mm[Hg] Gonsalo You Other [facility] Other 12-05-2022 11:00-0400 Respiratory rate 18 /min Gonsalo You Other [facility] Other 12-05-2022 11:00-0400 SaO2% (BldA) [Mass fraction] 98 % Gonsalo You Other [facility] Other 12-05-2022 11:00-0400 Systolic blood pressure 139 mm[Hg] Gonsalo You Other [facility] Other 01-31-2022 09:30-0400 Diastolic blood pressure 78 mm[Hg] MD Hudson Castañeda Work Phone: [facility] 01-31-2022 09:30-0400 Heart rate 69 /min MD Hudson Castañeda Work Phone: [facility] 01-31-2022 09:30-0400 Respiratory rate 16 /min MD Hudson Castañeda Work Phone: [facility] 01-31-2022 09:30-0400 SaO2% (BldA) [Mass fraction] 99 % MD Hudson Castañeda Work Phone: [facility] 01-31-2022 09:30-0400 Systolic blood pressure 124 mm[Hg] MD Hudson Castañeda Work Phone: [facility] 01-31-2022 08:00-0400 Body height 175.26 cm MD Hudson Castañeda Work Phone: [facility] 01-31-2022 08:00-0400 Body temperature 98.5 [degF] MD Hudson Castañeda Work Phone: [facility] 01-31-2022 08:00-0400 Body weight 74.84 kg MD Hudson Castañeda Work Phone: [facility] 11-29-2021 11:20-0400 Body height 175.26 cm Gonsalo You Other [facility] Other 11-29-2021 11:20-0400 Body mass index (BMI) [Ratio] 26.25 kg/m2 Gonsalo You Other [facility] Other 11-29-2021 11:20-0400 Body temperature 96.5 [degF] Gonsalo You Other [facility] Other 11-29-2021 11:20-0400 Body weight 80.65 kg Gonsalo You Other [facility] Other 11-29-2021 11:20-0400 Diastolic blood pressure 90 mm[Hg] Gonsalo You Other [facility] Other 11-29-2021 11:20-0400 Respiratory rate 18 /min Gons[facility] You Other [facility] Other 11-29-2021 11:20-0400 SaO2% (BldA) [Mass fraction] 95 % Gonsalo Stevens Other [facility] Other 11-29-2021 11:20-0400 Systolic blood pressure 160 mm[Hg] Gonsalo Stevens Other [facility] Other Clinical Notes 05-03-2021 to 12-05-2022 Note Date [...] within the goal. Will check Iron studies. [facility] Other [id number] NoteHISTORY: Knee pain TECHNIQUE: Duplex sonographic evaluation [...] signed by Juan Wan on 07/19/2022 [id number] [id number] [facility]* Encounter Date Diagnosis Assessment Notes Treatment Notes Treatment Clinical Notes Jan, Screening for colon cancer (ICD-10 - Z12.11) [facility] Other 05-26-2022 Evaluation note* Encounter Date Diagnosis [...] Colonoscopy . Advised her to schedule it [facility] Other 10-28-2021 NoteHNO ID: [id number] Author: Jose G Wells MD Service: Vascular Surgery Author Type: Physician Type: Progress Notes Filed: 05/07/2021 7:30 AM Note Text: NAME: ZEYNEP ABBASI [facility] NO: [id number] DATE OF SERVICE: 05/03/2021 DATE OF : [...] She has had an ultrasound done at [facility] that was done in February which [...] Jose G Wells M.D. SPL/089 Audio #: [id number] Date Dictated: 04/19/2021 23:17:18 Date Typed: 05/03/2021 14:30:58 Date Revised: 05/03/2021 16:03:18[facility]10-28-2021 NoteHNO ID: [id number] Author: Jose G Wells MD Service: ? Author Type: Physician Type: Progress Notes Filed: 05/03/2021 11:53 AM Note Text: Here for f/u of unilateral renal artery stenosis with well-controlled hypertension Heart , Vascular and Thoracic [place] DEPARTMENT OF VASCULAR SURGERY OUTPATIENT VISIT DATE [...] TIME OF SERVICE: 11:20 AM Medical Decision MakingBarberton Citizens HospitalEvaluation noteNo assessment information availableUniversity [facility] Work Phone: Evaluation noteNo InformationNort [facility] Other Evaluation note* Diagnosis Onset Date Resolution Status Chronic hyponatremia acute Hypercholesterolemia acute Renal artery stenosis acute Renovascular hypertension ac [place] Rheumatoid arthritis acute Vitamin D deficiency acute [facility] Work Phone: History and physical note Author Jordan Gutierrez [facility] January 31, 2022 8:44am Note Date/Time January 31, 2022 8:44 am [facility] [address] [place] [address] Gastroenterology H&P Signed Patient: Zeynep Abbasi MR#: [id number] : 1950 Acct:[id number] Age/Sex: 71 / F Adm Date: 2 Loc: Room: Type: [facility] Attending Dr: Jordan Gutierrez MD Copies to: [...] the procedure. Jordan Gutierrez MD Documented By: Jrodan Gutierrez MD 01/31/22843 Signed By: <Electronically signed by Jordan Gutierrez MD> 01/31/22843 [facility] Work Phone: History general Narrative - Reported* [...] Hospitalization History SCIATIC RIGHT SIDE PAIN 05/2018 [facility] Other History general Narrative - Reported* Type [...] Hospitalization History SCIATIC RIGHT SIDE PAIN 05/2018 [facility] Other Summary Purpose Family History No Family [...] section and content) DATE CREATED AUTHOR 06/21/2018 [facility] DATE CREATED AUTHOR AUTHOR'S ORGANIZ ATION 08/11/2021 [facility] DATE CREATED AUTHOR AUTHOR'S ORGANIZ ATION 07/18/2022 [facility] pital DATE CREATED AUTHOR AUTHOR'S ORGANIZ ATION 07/19/2022 [facility] dical Specialist DATE CREATED AUTHOR AUTHOR'S ORGANIZ ATION 10/28/2023 [facility] DATE CREATED AUTHOR AUTHOR'S ORGANIZ ATION 11/27/2023 [facility] DATE CREATED AUTHOR AUTHOR'S ORGANIZ ATION 12/04/2023 [facility] dical Specialists [facility] DATE CREATED AUTHOR AUTHOR'S ORGANIZ ATION 12/09/2023 [facility] REASON FOR VISIT (unrecogniz ed section and [...] Hudson Castañeda MD Primary Care Provider Active ABRIL ZaldivarC Attending Provider Active Team Status: Inactive Member [...] BE BASED ON THE PRIMARY CLINICAL RECORDS. [facility] [employer] provides no warranty or guarantee of the accuracy or completeness of information in this document.
[2023-12-15 11:49] LABS: Alanine Aminotransferase 20 U/L (14-59); Albumin Level 3.7 g/dL (3.4-5.0); Alkaline Phosphatase 86 U/L (46-116); Anion Gap 12.2; Aspartate Amino Transferase 15 U/L (15-37); BUN Creatinine Ratio 20.3; Bilirubin Total 0.4 mg/dL (0.2-1.0); Calcium 9.2 mg/dL (8.5-10.1); Carbon Dioxide 30.1 mmol/L (21.0-32.0); Chloride 99 mmol/L (98-107); Chol HDL Ratio 2.8; Cholesterol 157 mg/dL (<=200); Estimated GFR (African America >60 (>=60); Estimated GFR (Non-African Ame >60 (>=60); Globulin 3.6 g/dL; Glucose 91 mg/dL (74-106); HDL Cholesterol 56 mg/dL (40-60); LDL Cholesterol Calculated 77.2 mg/dL; Potassium 4.3 mmol/L (3.5-5.1); Sodium 137 mmol/L (136-145); Total Protein 7.3 g/dL (6.4-8.2); Triglycerides 119 mg/dL (<=150); VLDL CHOLESTEROL 23.8 mg/dL
== END 2023-12-15 09:26 | disposition home or self-care (01) ==
LOC: LAB 09:29
PROVIDERS: PCP Family Medicine; Visit Provider Family Medicine
DX: E78.2 Mixed hyperlipidemia (principal); I10 Essential (primary) hypertension; Z13.1 Encounter for screening for diabetes mellitus; R73.01 Impaired fasting glucose
CPT/HCPCS: 36415; 80053; 80061

== ENCOUNTER 2024-06-02 07:29 | Outpatient (RCR) | payer MEDICARE, SELFPAY ==
--- OUTSIDE RECORDS SUMMARY | 2024-01-05 11:08 | XMS_ITS | CCD ---
Author Organization [facility] Care Team Providers Care Heel Varnisher Name Role Phone Juan Shirley W Unavailable Unavailable Rice, Juan W Unavailable Unavailable Rice Juan W Unavailable Unavailable HUDSON CASTAÑEDA Unavailable Unavailable Hudson Castañeda Primary Care Provider Sg Randall Attending Provider Kamari Virk Attending Provider You, Gonsalo Unavailable Jordan Gutierrez Unavailable MD Hudson Castañeda Primary Care Provider [phone] MD Kamari Virk Attending Provider Unavailabl e MD José Luis Brennan Referring Provider [phone] MD Jordan Gutierrez Attending Provider MD Hudson Castañeda Primary Care Provider [phone] MD Sg Randall Attending Provider DR TAMERA RANDALL Admitting Unavailable TONIA, DR PHILIP Attending Unavailable CONYER, DR MERRITT Primary Care Unavailable TONIA, DR [...] Unavailable MD Hudson Castañeda Primary Care Provider [phone] MD Sg Randall Attending Provider [phone] CHANTEL Stafford Attending Provider MD José Luis Brennan Attending Provider MD Hudson Castañeda Primary Care Provider MD Tamera Randall Attending Provider MD Hudson Castañeda Primary Care Provider MD Tamera Randall Attending Provider Hudson Castañeda Primary Care Unavailable Randall, Tamera Admitting Unavailable Randall, Tamera Attending Unavailable Randall, Tmaera Admitting Unavailable Randall, Tamera Attending Unavailable Hemeyer, Edward J Primary Care Unavailable ObTorie segal Admitting Unavailable Torie Stafford Attending Unavailable Hemeyer, Edward J Primary Care Unavailable Mayay, José Luis Admitting Unavailable Mika, José Luis Attending Unavailable Hemeyer, Edward J Primary Care Unavailable PA, PRICILLA A Referring Unavailable HEMEYER, EDWARD J Primary Care Unavailable PA, PRICILLA A Attending Unavailable PA, PRICILLA A Referring Unavailable HEMEYER, EDWARD J Primary Care Unavailable OLIVE DODSON Attending Unavailable HEMEYER, EDWARD J Attending Unavailable HEMEYER, EDWARD J Attending Unavailable HEMEYER, EDWARD J Attending Unavailable [...] Medication Allergies] Propensity to adverse reactions (disorder) [facility] Repository (5 sources) Ibuprofen Drug Allergy due to kidneys viVood Other (5 sources) NSAIDs Propensity to adverse reactions due to kidneys viVood Other (1 source) Ibuprofen Drug Allergy [address] [place] [address] Repository (1 source) NSAIDs Drug allergy (disorder) [address] [place] [address] Repository (2 sources) Pollen; Translations: [POLLEN EXTRACTS] [...] November 13, 2023 11:02am lactobacillus rhamnosus gg [id number] unt oral capsule (2 sources) Start: 11-13-2023 [...] oil (9 sources) Start: 01-31-2022 End: 11-13-2023 Qmlpf-Cu-5-Dha-Epa -Phospho-Ast (Krill Oil) [id number] mg Capsule Discontinued 1 CAP PO Daily January 31, 2022 12:00am November 13, 2023 11:03am Start: 01-31-2022 Wuylk-Zw-2-Dha -Pzh-Huukysb-Ckv (Krill Oil) [id number] mg Capsule Active 1 CAP PO Daily [...] 11-29-2021 Chronic Other aftercare (1 source) Other penitentiary (current) drug therapy; Translations: [OTH LOCUM TENENS PSYCHIATRIST CURRENT DRUG THERAPY] Onset: 07-17-2022 Episodic Other circulatory disease (2 sources) Stricture of artery; 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] Onset: 11-03-2023 Chronic Peripheral and visceral atherosclerosis (15 sources) Renal artery stenosis; Translations: [Atherosclerosis of [...] 10-27-2023 ALT [Catalytic activity/Vol] 16 U/L 7-52 [facility] Albumin [Mass/volume] in Ser um or Plasma by Bromocresol green (BCG) dye binding methoOrdered By: Tamera Randall on 10-27-2023 Albumin BCG dye [Mass/Vol] 4.5 g/dL 3.5-5.7 [facility] Alkaline phosphatase [Enzyma tic activity/volume] in Serum or PlasmaOrdered By: Tamera Randall on 10-27-2023 ALP [Catalytic activity/Vol] 62 U/L 34-104 [facility] Aspartate aminotransferase [ Enzymatic activity/volume] in Serum or PlasmaOrdered By: Tamera Randall on 10-27-2023 AST [Catalytic activity/Vol] 20 U/L 13-39 [facility] Basophils Auto (Bld) [#/Vol] Ordered By: Tamera Randall on 10-27-2023 Basophils (Bld) [#/Vol] 0.0 10*3/uL 0.0-0.2 [facility] Basophils/100 WBC Auto (Bld) Ordered By: Tamera Randall on 10-27-2023 Basophils/100 WBC (Bld) 0.7 % . [facility] Bilirubin.total [Mass/volume ] in Serum or PlasmaOrdered By: Tamera Randall on 10-27-2023 Bilirubin [Mass/Vol] 0.6 mg/dL 0.3-1.0 [facility] Calcium [Mass/volume] in Ser um or PlasmaOrdered By: Tamera Randall on 10-27-2023 Calcium [Mass/Vol] 9.5 mg/dL 8.6-10.3 [facility] Carbon dioxide, total [Moles /volume] in Serum or PlasmaOrdered By: Tamera Randall on 10-27-2023 CO2 [Moles/Vol] 25.7 mmol/L 21.0-31.0 [facility] Chloride [Moles/volume] in S jl or PlasmaOrdered By: Tamera Randall on 10-27-2023 Chloride [Moles/Vol] 98 mmol/L 98-107 [facility] Complete Blood Count Auto Di ffon 10-27-2023 Basophils (Bld) [#/Vol] 0.0 10*3/uL Normal 0.0-0.2 [facility] Comment on above: Order Comment: Reaso n for Exam Renovascular hypertension;Renal artery stenosis;Dyslipidemia Performed By: #### E SR, RENAL, [id number], MG, [id number], URIC, CMP, FE and TIBC, CBC, JAS #### [facility] [address] Basophils/100 WBC (Bld) 0.7 % Normal . [facility] Comment on above: Order Comment: Reaso n for Exam Renovascular hypertension;Renal artery stenosis;Dyslipidemia Performed By: #### E SR, RENAL, [id number], MG, [id number], URIC, CMP, FE and TIBC, CBC, JAS #### [address] Eosinophils (Bld) [#/Vol] 0.2 10*3/uL Normal 0.0-0.45 [facility] Comment on above: Order Comment: Reaso n for Exam Renovascular hypertension;Renal artery stenosis;Dyslipidemia Performed By: #### E SR, RENAL, [id number], MG, [id number], URIC, CMP, FE and TIBC, CBC, JAS #### [address] Eosinophils/100 WBC (Bld) 2.7 % Normal . [facility] Comment on above: Order Comment: Reaso n for Exam Renovascular hypertension;Renal artery stenosis;Dyslipidemia Performed By: #### E SR, RENAL, [id number], MG, [id number], URIC, CMP, FE and TIBC, CBC, JAS #### [address] Erythrocyte distribution width (RBC) [Ratio] 13.4 % Normal 11.9-15.3 [facility] Comment on above: Order Comment: Reaso n for Exam Renovascular hypertension;Renal artery stenosis;Dyslipidemia Performed By: #### E SR, RENAL, [id number], MG, [id number], URIC, CMP, FE and TIBC, CBC, JAS #### [address] Hematocrit (Bld) [Volume fraction] 35.5 % Normal 34.0-46.4 [facility] Comment on above: Order Comment: Reaso n for Exam Renovascular hypertension;Renal artery stenosis;Dyslipidemia Performed By: #### E SR, RENAL, [id number], MG, [id number], URIC, CMP, FE and TIBC, CBC, JAS #### [place] [address] Hemoglobin (Bld) [Mass/Vol] 11.9 g/dL Normal 11.8-15.4 [facility] Comment on above: Order Comment: Reaso n for Exam Renovascular hypertension;Renal artery stenosis;Dyslipidemia Performed By: #### E SR, RENAL, [id number], MG, [id number], URIC, CMP, FE and TIBC, CBC, JAS #### [address] Lymphocytes (Bld) [#/Vol] 1.3 10*3/uL Normal 1.00-4.8 [facility] Comment on above: Order Comment: Reaso n for Exam Renovascular hypertension;Renal artery stenosis;Dyslipidemia Performed By: #### E SR, RENAL, [id number], MG, [id number], URIC, CMP, FE and TIBC, CBC, JAS #### [address] Lymphocytes/100 WBC (Bld) 20.9 % Normal . [facility] Comment on above: Order Comment: Reaso n for Exam Renovascular hypertension;Renal artery stenosis;Dyslipidemia Performed By: #### E SR, RENAL, [id number], MG, [id number], URIC, CMP, FE and TIBC, CBC, JAS #### [address] MCH (RBC) [Entitic mass] 30.4 pg Normal 24.7-34.3 [facility] Comment on above: Order Comment: Reaso n for Exam Renovascular hypertension;Renal artery stenosis;Dyslipidemia Performed By: #### E SR, RENAL, [id number], MG, [id number], URIC, CMP, FE and TIBC, CBC, JAS #### [address] MCV (RBC) [Entitic vol] 90.4 fL Normal 80-100 [facility] Comment on above: Order Comment: Reaso n for Exam Renovascular hypertension;Renal artery stenosis;Dyslipidemia Performed By: #### E SR, RENAL, [id number], MG, [id number], URIC, CMP, FE and TIBC, CBC, JAS #### [facility] [address] Mean Corpuscular HGB Conc 33.6 g/dL Normal 32.0-35.0 [facility] Comment on above: Order Comment: Reaso n for Exam Renovascular hypertension;Renal artery stenosis;Dyslipidemia Performed By: #### E SR, RENAL, [id number], MG, [id number], URIC, CMP, FE and TIBC, CBC, JAS #### [facility] [address] Monocytes (Bld) [#/Vol] 0.5 10*3/uL Normal 0.0-0.8 [facility] Comment on above: Order Comment: Reaso n for Exam Renovascular hypertension;Renal artery stenosis;Dyslipidemia Performed By: #### E SR, RENAL, [id number], MG, [id number], URIC, CMP, FE and TIBC, CBC, JAS #### [facility] [address] Monocytes/100 WBC (Bld) 7.5 % Normal . [facility] Comment on above: Order Comment: Reaso n for Exam Renovascular hypertension;Renal artery stenosis;Dyslipidemia Performed By: #### E SR, RENAL, [id number], MG, [id number], URIC, CMP, FE and TIBC, CBC, JAS #### [place] [address] [place] Neutrophils (Bld) [#/Vol] 4.1 10*3/uL Normal 1.8-7.7 [facility] Comment on above: Order Comment: Reaso n for Exam Renovascular hypertension;Renal artery stenosis;Dyslipidemia Performed By: #### E SR, RENAL, [id number], MG, [id number], URIC, CMP, FE and TIBC, CBC, JAS #### [address] Neutrophils/100 WBC (Bld) 68.2 % Normal . [facility] Comment on above: Order Comment: Reaso n for Exam Renovascular hypertension;Renal artery stenosis;Dyslipidemia Performed By: #### E SR, RENAL, [id number], MG, [id number], URIC, CMP, FE and TIBC, CBC, JAS #### [facility] [address] NRBC% 0.1 /100{WBC} Normal 0-0.5 [facility] Comment on above: Order Comment: Reaso n for Exam Renovascular hypertension;Renal artery stenosis;Dyslipidemia Performed By: #### E SR, RENAL, [id number], MG, [id number], URIC, CMP, FE and TIBC, CBC, JAS #### [facility] [address] Platelet mean volume (Bld) [Entitic vol] 9.3 fL Normal 6.3-10.7 [facility] Comment on above: Order Comment: Reaso n for Exam Renovascular hypertension;Renal artery stenosis;Dyslipidemia Performed By: #### E SR, RENAL, [id number], MG, [id number], URIC, CMP, FE and TIBC, CBC, JAS #### [facility] [address] Platelets (Bld) [#/Vol] 275 10*3/uL Normal 150-450 [facility] Comment on above: Order Comment: Reaso n for Exam Renovascular hypertension;Renal artery stenosis;Dyslipidemia Performed By: #### E SR, RENAL, [id number], MG, [id number], URIC, CMP, FE and TIBC, CBC, JAS #### [facility] [address] RBC (Bld) [#/Vol] 3.93 10*6/uL Normal 3.60-5.00 [facility] Comment on above: Order Comment: Reaso n for Exam Renovascular hypertension;Renal artery stenosis;Dyslipidemia Performed By: #### E SR, RENAL, [id number], MG, [id number], URIC, CMP, FE and TIBC, CBC, JAS #### [facility] [address] WBC (Bld) [#/Vol] 6.1 10*3/uL Normal 3.8-11.6 [facility] Comment on above: Order Comment: Reaso n for Exam Renovascular hypertension;Renal artery stenosis;Dyslipidemia Performed By: #### E SR, RENAL, [id number], MG, [id number], URIC, CMP, FE and TIBC, CBC, JAS #### [facility] [address] Comprehensive Metabolic Pane canelo 10-27-2023 Albumin [Mass/Vol] 4.5 g/dL Normal 3.5-5.7 [facility] Comment on above: Order Comment: Reaso n for Exam Renovascular hypertension;Renal artery stenosis;Dyslipidemia Performed By: #### E SR, RENAL, [id number], MG, [id number], URIC, CMP, FE and TIBC, CBC, JAS #### [address] Albumin/Globulin [Mass ratio] 1.7 {ratio} Normal [facility] Comment on above: Order Comment: Reaso n for Exam Renovascular hypertension;Renal artery stenosis;Dyslipidemia Performed By: #### E SR, RENAL, [id number], MG, [id number], URIC, CMP, FE and TIBC, CBC, JAS #### [facility] [address] ALP [Catalytic activity/Vol] 62 U/L Normal 34-104 [facility] Comment on above: Order Comment: Reaso n for Exam Renovascular hypertension;Renal artery stenosis;Dyslipidemia Performed By: #### E SR, RENAL, [id number], MG, [id number], URIC, CMP, FE and TIBC, CBC, JAS #### [facility] [address] [place] [id number] [facility] ALT [Catalytic activity/Vol] 16 U/L Normal 7-52 [facility] Comment on above: Order Comment: Reaso n for Exam Renovascular hypertension;Renal artery stenosis;Dyslipidemia Performed By: #### E SR, RENAL, [id number], MG, [id number], URIC, CMP, FE and TIBC, CBC, JAS #### [facility] [address] [place] [address] Anion gap [Moles/Vol] 12.8 mmol/L Normal 6.0-15.[address] [facility] Comment on above: Order Comment: Reaso n for Exam Renovascular hypertension;Renal artery stenosis;Dyslipidemia Performed By: #### E SR, RENAL, [id number], MG, [id number], URIC, CMP, FE and TIBC, CBC, JAS #### [address] AST [Catalytic activity/Vol] 20 U/L Normal 13-39 [facility] Comment on above: Order Comment: Reaso n for Exam Renovascular hypertension;Renal artery stenosis;Dyslipidemia Performed By: #### E SR, RENAL, [id number], MG, [id number], URIC, CMP, FE and TIBC, CBC, JAS #### [address] Bilirubin [Mass/Vol] 0.6 mg/dL Normal 0.3-1.0 [facility] Comment on above: Order Comment: Reaso n for Exam Renovascular hypertension;Renal artery stenosis;Dyslipidemia Performed By: #### E SR, RENAL, [id number], MG, [id number], URIC, CMP, FE and TIBC, CBC, JAS #### [address] Calcium [Mass/Vol] 9.5 mg/dL Normal 8.6-10.3 [facility] Comment on above: Order Comment: Reaso n for Exam Renovascular hypertension;Renal artery stenosis;Dyslipidemia Performed By: #### E SR, RENAL, [id number], MG, [id number], URIC, CMP, FE and TIBC, CBC, JAS #### [place] [address] [place] Chloride [Moles/Vol] 98 mmol/L Normal 98-107 [facility] Comment on above: Order Comment: Reaso n for Exam Renovascular hypertension;Renal artery stenosis;Dyslipidemia Performed By: #### E SR, RENAL, [id number], MG, [id number], URIC, CMP, FE and TIBC, CBC, JAS #### [facility] [address] CO2 [Moles/Vol] 25.7 mmol/L Normal 21.0-31.0 [facility] Comment on above: Order Comment: Reaso n for Exam Renovascular hypertension;Renal artery stenosis;Dyslipidemia Performed By: #### E SR, RENAL, [id number], MG, [id number], URIC, CMP, FE and TIBC, CBC, JAS #### [address] Creatinine [Mass/Vol] 0.69 mg/dL Normal 0.60-1.20 [facility] Comment on above: Order Comment: Reaso n for Exam Renovascular hypertension;Renal artery stenosis;Dyslipidemia Performed By: #### E SR, RENAL, [id number], MG, [id number], URIC, CMP, FE and TIBC, CBC, JAS #### [address] GFR/1.73 sq M.predicted MDRD (S/P/Bld) [Vol rate/Area] mL/min/{1.73_m2} Normal [facility] Comment on above: Order Comment: Reaso n for Exam Renovascular hypertension;Renal artery stenosis;Dyslipidemia Performed By: #### E SR, RENAL, [id number], MG, [id number], URIC, CMP, FE and TIBC, CBC, JAS #### [address] Globulin (S) [Mass/Vol] 2.6 g/dL Normal T [facility] Comment on above: Order Comment: Reaso n for Exam Renovascular hypertension;Renal artery stenosis;Dyslipidemia Performed By: #### E SR, RENAL, [id number], MG, [id number], URIC, CMP, FE and TIBC, CBC, JAS #### [facility] [address] Glucose [Mass/Vol] 96 mg/dL Normal 70-100 [facility] Comment on above: Order Comment: Reaso n for Exam Renovascular hypertension;Renal artery stenosis;Dyslipidemia Result Comment: [place] Glucose Reference Range is dependent on time and content of last meal. Glucose of more than 200 mg/dL in a nonstressed, ambulatory subject supports the diagnosis of Diabetes Mellitus. ADA recommended reference range Performed By: #### E SR, RENAL, [id number], MG, [id number], URIC, CMP, FE and TIBC, CBC, JAS #### [facility] [address] Potassium [Moles/Vol] 4.5 mmol/L Normal 3.5-5.1 [facility] Comment on above: Order Comment: Reaso n for Exam Renovascular hypertension;Renal artery stenosis;Dyslipidemia Performed By: #### E SR, RENAL, [id number], MG, [id number], URIC, CMP, FE and TIBC, CBC, JAS #### [facility] [address] Protein [Mass/Vol] 7.1 g/dL Normal 6.4-8.9 [facility] Comment on above: Order Comment: Reaso n for Exam Renovascular hypertension;Renal artery stenosis;Dyslipidemia Performed By: #### E SR, RENAL, [id number], MG, [id number], URIC, CMP, FE and TIBC, CBC, JAS #### [facility] [address] Sodium [Moles/Vol] 132 mmol/L Low 136-145 [facility] Comment on above: Order Comment: Reaso n for Exam Renovascular hypertension;Renal artery stenosis;Dyslipidemia Performed By: #### E SR, RENAL, [id number], MG, [id number], URIC, CMP, FE and TIBC, CBC, JAS #### [facility] [address] Urea nitrogen [Mass/Vol] 21 mg/dL Normal 7-25 [facility] Comment on above: Order Comment: Reaso n for Exam Renovascular hypertension;Renal artery stenosis;Dyslipidemia Performed By: #### E SR, RENAL, [id number], MG, [id number], URIC, CMP, FE and TIBC, CBC, JAS #### [facility] [address] [place] [address] Creatinine [Mass/volume] in Serum or PlasmaOrdered By: aTmera Randall on 10-27-2023 Creatinine [Mass/Vol] 0.69 mg/dL 0.60-1.20 [facility] Eosinophils Auto (Bld) [#/Vo l]Ordered By: Tamera Randall on 10-27-2023 Eosinophils (Bld) [#/Vol] 0.2 10*3/uL 0.0-0.45 [facility] Eosinophils/100 WBC Auto (Bl d)Ordered By: Tamera Randall on 10-27-2023 Eosinophils/100 WBC (Bld) 2.7 % . [facility] Erythrocyte Sedimentation Ra eulalio 10-27-2023 ESR (Bld) [Velocity] 17 mm/h Normal 0-29 [facility] Comment on above: Order Comment: Reaso n for Exam Renovascular hypertension;Renal artery stenosis;Dyslipidemia Result Comment: PERF ORMED BY: [place] [address] PATHOLOGIST [employer] ONEIL GAMA M.D. Performed By: #### E SR, RENAL, [id number], MG, [id number], URIC, CMP, FE and TIBC, CBC, JAS #### [facility] [address] [place] [address] Erythrocyte distribution wid th Auto (RBC) [Ratio]Ordered By: Tamera Randall on 10-27-2023 Erythrocyte distribution width (RBC) [Ratio] 13.4 % 11.9-15.3 [facility] Erythrocyte sedimentation ra te by Photometric methodOrdered By: Tamera Randall on 10-27-2023 ESR Photometric method (Bld) [Velocity] 17 mm/hr 0-29 [facility] Ferritinon 10-27-2023 Ferritin [Mass/Vol] 44.3 ng/mL Normal 11.0-306.8 [facility] Comment on above: Order Comment: Reaso n for Exam Renovascular hypertension;Renal artery stenosis;Dyslipidemia Performed By: #### C BC, CMP, ESR #### [address] Ferritin [Mass/volume] in Se rum or PlasmaOrdered By: Gonsalo Stevens on 10-27-2023 Ferritin [Mass/Vol] 44.3 ng/mL 11.0-306.8 [facility] Folate [Mass/volume] in Seru m or PlasmaOrdered By: Gonsalo Stevens on 10-27-2023 Folate [Mass/Vol] 36.0 ng/mL >5.9 [facility] Comment on above: Folate reference ran ge: >5.9 ng/mlThe WHO technical consultation on folate and vitamin [id number] has determined that folate concentrations lessthan 4 ng/ml are considered deficient. Globulin Calc (S) [Mass/Vol] Ordered By: Tamera Randall on 10-27-2023 Globulin (S) [Mass/Vol] 2.6 g/dL F [facility] Glucose [Mass/volume] in Ser um or PlasmaOrdered By: Tamera Randall on 10-27-2023 Glucose [Mass/Vol] 96 mg/dL 70-100 [facility] Comment on above: ADA recommended refe rence rangeRandom Glucose Reference Range is dependent on time and content of last meal. Glucose of more than 200 mg/dL in a nonstressed, ambulatory subject supports the diagnosis of Diabetes Mellitus. Hematocrit Auto (Bld) [Volum e fraction]Ordered By: Tamera Randall on 10-27-2023 Hematocrit (Bld) [Volume fraction] 35.5 % 34.0-46.4 [facility] Hemoglobin [Mass/volume] in BloodOrdered By: Tamera Radnall on 10-27-2023 Hemoglobin (Bld) [Mass/Vol] 11.9 g/dL 11.8-15.4 [facility] Iron [Mass/volume] in Serum or PlasmaOrdered By: Gonsalo Stevens on 10-27-2023 Iron [Mass/Vol] 93 ug/dL 50-212 [facility] Iron and TIBC Profileon 10-06 % Iron Saturation 25.0 % Normal 20-50 [facility] Comment on above: Order Comment: Reaso n for Exam Renovascular hypertension;Renal artery stenosis;Dyslipidemia Performed By: #### C BC, CMP, ESR #### [facility] [address] [place] [id number] [place] Iron [Mass/Vol] 93 ug/dL Normal 50-212 [facility] Comment on above: Order Comment: Reaso n for Exam Renovascular hypertension;Renal artery stenosis;Dyslipidemia Performed By: #### C BC, CMP, ESR #### [facility] [address] [place] [address] [place] Total Iron Binding Capacity 372 ug/dL Normal 255-450 [facility] Comment on above: Order Comment: Reaso n for Exam Renovascular hypertension;Renal artery stenosis;Dyslipidemia Performed By: #### C BC, CMP, ESR #### [facility] [address] [place] [id number] [place] Transferrin [Mass/Vol] 266 mg/dL Normal 203-362 [facility] Comment on above: Order Comment: Reaso n for Exam Renovascular hypertension;Renal artery stenosis;Dyslipidemia Performed By: #### C BC, CMP, ESR #### [facility] [address] [place] [id number] [place] Iron binding capacity [Mass/ volume] in Serum or PlasmaOrdered By: Gonsalo You on 10-27-2023 Iron binding capacity [Mass/Vol] 372 ug/dL 255-450 [facility] Iron saturation [Mass Fracti on] in Serum or PlasmaOrdered By: Gonsalo You on 10-27-2023 Iron saturation [Mass fraction] 25.0 % 20-50 [facility] Leukocytes [#/volume] correc taylor for nucleated erythrocytes in Blood by Automated counOrdered By: Tamera Randall on 10-27-2023 WBC corrected for nucl RBC Auto (Bld) [#/Vol] 6.1 10*3/uL 3.8-11.6 [facility] Lymphocytes Auto (Bld) [#/Vo l]Ordered By: Tamera Randall on 10-27-2023 Lymphocytes (Bld) [#/Vol] 1.3 10*3/uL 1.00-4.8 [facility] Lymphocytes/100 WBC Auto (Bl d)Ordered By: Tamera Randall on 10-27-2023 Lymphocytes/100 WBC (Bld) 20.9 % . [facility] MCH Auto (RBC) [Entitic mass ]Ordered By: Tamera Randall on 10-27-2023 MCH (RBC) [Entitic mass] 30.4 pg 24.7-34.3 [facility] MCHC Auto (RBC) [Mass/Vol]Or dered By: Tamera Randall on 10-27-2023 MCHC (RBC) [Mass/Vol] 33.6 g/dL 32.0-35.0 [facility] MCV Auto (RBC) [Entitic vol] Ordered By: Tamera Randall on 10-27-2023 MCV (RBC) [Entitic vol] 90.4 fL 80-100 [facility] Magnesiumon 10-27-2023 Magnesium [Mass/Vol] 1.9 mg/dL Normal 1.9-2.7 [facility] Comment on above: Order Comment: Reaso n for Exam Renovascular hypertension;Renal artery stenosis;Dyslipidemia Performed By: #### C BC, CMP, ESR #### [facility] [address] [place] [address] Magnesium [Mass/volume] in S jl or PlasmaOrdered By: Gonsalo Stevens on 10-27-2023 Magnesium [Mass/Vol] 1.9 mg/dL 1.9-2.7 [facility] Monocytes Auto (Bld) [#/Vol] Ordered By: Tamera Randall on 10-27-2023 Monocytes (Bld) [#/Vol] 0.5 10*3/uL 0.0-0.8 [facility] Monocytes/100 WBC Auto (Bld) Ordered By: Tamera Randall on 10-27-2023 Monocytes/100 WBC (Bld) 7.5 % . [facility] Neutrophils Auto (Bld) [#/Vo l]Ordered By: Tamera Randall on 10-27-2023 Neutrophils (Bld) [#/Vol] 4.1 10*3/uL 1.8-7.7 [facility] Neutrophils/100 WBC Auto (Bl d)Ordered By: Tamera Randall on 10-27-2023 Neutrophils/100 WBC (Bld) 68.2 % . [facility] No Panel InformationOrdered By: Tamera Randall on 10-27-2023 Estimated GFR (CKD-EPI) > 60.0 mL/Min [facility] Creatinine Clearance (Chem N/A [facility] Nucleated erythrocytes [Pres ence] in Blood by Automated countOrdered By: Tamera Randall on 10-27-2023 Nucleated RBC Auto Ql (Bld) 0.1 /100{WBC} 0-0.5 [facility] Parathyrin.intact [Mass/volu me] in Serum or PlasmaOrdered By: Gonsalo Stevens on 10-27-2023 Parathyrin.intact [Mass/Vol] 29.8 pg/mL [facility] Parathyroid Hormone Intacton 10-27-2023 Parathyroid Hormone Intact 29.8 pg/mL Normal [facility] Comment on above: Order Comment: Reaso n for Exam Renovascular hypertension;Renal artery stenosis;Dyslipidemia Result Comment: PERF ORMED BY: [place] [address] PATHOLOGIST [employer]OC[employer] ONEIL GAMA M.D. Performed By: #### P TH #### [address] Phosphate [Mass/volume] in S jl or PlasmaOrdered By: Gonsalo Stevens on 10-27-2023 Phosphate [Mass/Vol] 4.4 mg/dL 2.5-4.5 [facility] Platelet mean volume Auto (B ld) [Entitic vol]Ordered By: Tamera Randall on 10-27-2023 Platelet mean volume (Bld) [Entitic vol] 9.3 fL 6.3-10.7 [facility] Platelets Auto (Bld) [#/Vol] Ordered By: Tamera Randall on 10-27-2023 Platelets (Bld) [#/Vol] 275 10*3/uL 150-450 [facility] Potassium [Moles/volume] in Serum or PlasmaOrdered By: Tamera Randall on 10-27-2023 Potassium [Moles/Vol] 4.5 mmol/L 3.5-5.1 [facility] Protein [Mass/volume] in Ser um or PlasmaOrdered By: Tamera Randall on 10-27-2023 Protein [Mass/Vol] 7.1 g/dL 6.4-8.9 [facility] RBC Auto (Bld) [#/Vol]Ordere d By: Tamera Randall on 10-27-2023 RBC (Bld) [#/Vol] 3.93 10*6/uL 3.60-5.00 [facility] Renal Function Panelon 10-26 Phosphate [Mass/Vol] 4.4 mg/dL Normal 2.5-4.5 [facility] Comment on above: Order Comment: Reaso n for Exam Renovascular hypertension;Renal artery stenosis;Dyslipidemia Performed By: #### E SR, RENAL, [id number], MG, [id number], URIC, CMP, FE and TIBC, CBC, JAS #### [facility] [address] Serum or plasma albumin/glob ulin mass ratioOrdered By: Tamera Randall on 10-27-2023 Albumin/Globulin [Mass ratio] 1.7 {ratio} [facility] Serum or plasma anion gap de terminationOrdered By: Tamera Randall on 10-27-2023 Anion gap [Moles/Vol] 12.8 mmol/L 6.0-15.0 [facility] Sodium [Moles/volume] in Ser um or PlasmaOrdered By: Tamera Randall on 10-27-2023 Sodium [Moles/Vol] 132 mmol/L 136-145 [facility] Transferrin [Mass/volume] in Serum or PlasmaOrdered By: Gonsalo Stevens on 10-27-2023 Transferrin [Mass/Vol] 266 mg/dL 203-362 [facility] Urate [Mass/volume] in Serum or PlasmaOrdered By: Gonsalo You on 10-27-2023 Urate [Mass/Vol] 2.9 mg/dL 2.3-6.6 [facility] Urea nitrogen [Mass/volume] in Serum or PlasmaOrdered By: Tamera Randall on 10-27-2023 Urea nitrogen [Mass/Vol] 21 mg/dL 7-25 [facility] Uric Acidon 10-27-2023 Urate [Mass/Vol] 2.9 mg/dL Normal 2.3-6.6 [facility] Comment on above: Order Comment: Reaso n for Exam Renovascular hypertension;Renal artery stenosis;Dyslipidemia Performed By: #### C BC, CMP, ESR #### [facility] [address] Vit. B12/Folate Profileon Cobalamin (Vitamin B12) [Mass/Vol] 1280 pg/mL High 180-914 [facility] Comment on above: Order Comment: Reaso n for Exam Renovascular hypertension;Renal artery stenosis;Dyslipidemia Performed By: #### C BC, CMP, ESR #### [facility] [address] Folate 36.0 ng/mL Normal >5.9 [facility] Comment on above: Order Comment: Reaso n for Exam Renovascular hypertension;Renal artery stenosis;Dyslipidemia Result Comment: Alcira te reference range: >5.9 ng/ml The WHO technical consultation on folate and vitamin b12 deficiencies has determined that folate concentrations less than 4 ng/ml are considered deficient. Performed By: #### C BC, CMP, ESR #### [facility] [address] [place] [address] Vitamin B12 ser/plasOrdered By: Gonsalo Stevens on 10-27-2023 Cobalamin (Vitamin B12) [Mass/Vol] 1280 pg/mL 180-914 [facility] Vitamin D 25 Hydroxy Totalon 10-27-2023 Vitamin D 25 Hydroxy Total 57.7 ng/mL Normal 30-100 [facility] Comment on above: Order Comment: Reaso n for Exam Renovascular hypertension;Renal artery stenosis;Dyslipidemia Result Comment: BOBO MIN D STATUS 25(OH)VITAMIN D RANGE (ng/mL) Deficient <20 Insufficient 20 to <30 Sufficient 30 to 100 Reference: Gail MF,Laly NC, Magui GASPAR, et al. Evaluation,treatment, and prevention of vitamin D deficiency; an Endocrine Society clinical practice guideline. JCEM. 2010; 96(7):1911-30. PERFORMED BY: [place] [address] PATHOLOGIST [employer] ASSOCIATE ONEIL GAMA M.D. Performed By: #### C BC, CMP, ESR #### [facility] [address] Vitamin D+Metabolites [Mass/ volume] in Serum or PlasmaOrdered By: Gonsalo Stevens on 10-27-2023 Vitamin D+Metabolites [Mass/Vol] 57.7 ng/mL 30-100 [facility] Comment on above: VITAMIN D STATUS 25( OH)VITAMIN D RANGE (ng/mL) Deficient <20 Insufficient 20 to <30Sufficient 30 to 100Reference: Gail MF,Laly NC, Magui GASPAR, et al. Evaluation,treatment, and prevention of vitamin D deficiency; an Endocrine Society clinical practice guideline. JCEM. 2010; 96(7):1911-30. WBC Auto (Bld) [#/Vol]Ordere d By: Tamera Randall on 10-27-2023 WBC (Bld) [#/Vol] 6.1 10*3/uL 3.8-11.6 [facility] Alanine aminotransferase [En zymatic activity/volume] in Serum or PlasmaOrdered By: Tamera Randall on 04-29-2023 ALT [Catalytic activity/Vol] 17 U/L 7-52 [facility] Albumin [Mass/volume] in Ser um or Plasma by Bromocresol green (BCG) dye binding methoOrdered By: Tamera Randall on 04-29-2023 Albumin BCG dye [Mass/Vol] 4.4 g/dL 3.5-5.7 [facility] Alkaline phosphatase [Enzyma tic activity/volume] in Serum or PlasmaOrdered By: Tamera Randall on 04-29-2023 ALP [Catalytic activity/Vol] 79 U/L 34-104 [facility] Aspartate aminotransferase [ Enzymatic activity/volume] in Serum or PlasmaOrdered By: Tamera Randall on 04-29-2023 AST [Catalytic activity/Vol] 20 U/L 13-39 [facility] Basophils Auto (Bld) [#/Vol] Ordered By: Tamera Randall on 04-29-2023 Basophils (Bld) [#/Vol] 0.0 10*3/uL 0.0-0.2 [facility] Basophils/100 WBC Auto (Bld) Ordered By: Tamera Randall on 04-29-2023 Basophils/100 WBC (Bld) 0.9 % . [facility] Bilirubin.total [Mass/volume ] in Serum or PlasmaOrdered By: Tamera Randall on 04-29-2023 Bilirubin [Mass/Vol] 0.8 mg/dL 0.3-1.0 [facility] Calcium [Mass/volume] in Ser um or PlasmaOrdered By: Tamera Randall on 04-29-2023 Calcium [Mass/Vol] 9.6 mg/dL 8.6-10.3 [facility] Carbon dioxide, total [Moles /volume] in Serum or PlasmaOrdered By: Tamera Randall on 04-29-2023 CO2 [Moles/Vol] 29.3 mmol/L 21.0-31.0 [facility] Chloride [Moles/volume] in S jl or PlasmaOrdered By: Tamera Randall on 04-29-2023 Chloride [Moles/Vol] 98 mmol/L 98-107 [facility] Complete Blood Count Auto Di ffon 04-29-2023 Basophils (Bld) [#/Vol] 0.0 10*3/uL Normal 0.0-0.2 [facility] Comment on above: Performed By: #### C BC, CMP, ESR #### [facility] [address] [place] [id number] [place] Basophils/100 WBC (Bld) 0.9 % Normal . Gregory damico [facility] Comment on above: Performed By: #### C BC, CMP, ESR #### [facility] [address] [place] [id number] [place] Eosinophils (Bld) [#/Vol] 0.2 10*3/uL Normal 0.0-0.45 [facility] Comment on above: Performed By: #### C BC, CMP, ESR #### [facility] [address] [place] [id number] [place] Eosinophils/100 WBC (Bld) 4.2 % Normal . [facility] Comment on above: Performed By: #### C BC, CMP, ESR #### [address] Erythrocyte distribution width (RBC) [Ratio] 13.3 % Normal 11.9-15.3 [facility] Comment on above: Performed By: #### C BC, CMP, ESR #### [address] Hematocrit (Bld) [Volume fraction] 34.2 % Normal 34.0-46.4 [facility] Comment on above: Performed By: #### C BC, CMP, ESR #### [address] Hemoglobin (Bld) [Mass/Vol] 11.5 g/dL Low 11.8-15.4 [facility] Comment on above: Performed By: #### C BC, CMP, ESR #### [address] Lymphocytes (Bld) [#/Vol] 1.4 10*3/uL Normal 1.00-4.8 [facility] Comment on above: Performed By: #### C BC, CMP, ESR #### [address] Lymphocytes/100 WBC (Bld) 29.9 % Normal . [facility] Comment on above: Performed By: #### C BC, CMP, ESR #### [address] MCH (RBC) [Entitic mass] 30.3 pg Normal 24.7-34.3 [facility] Comment on above: Performed By: #### C BC, CMP, ESR #### [address] MCV (RBC) [Entitic vol] 90.0 fL Normal 80-100 [facility] Comment on above: Performed By: #### C BC, CMP, ESR #### [address] Mean Corpuscular HGB Conc 33.7 g/dL Normal 32.0-35.0 [facility] Comment on above: Performed By: #### C BC, CMP, ESR #### [facility] [address] [place] [address] [place] Monocytes (Bld) [#/Vol] 0.4 10*3/uL Normal 0.0-0.8 [facility] Comment on above: Performed By: #### C BC, CMP, ESR #### [facility] [address] [place] [id number] [place] Monocytes/100 WBC (Bld) 8.2 % Normal . [facility] Comment on above: Performed By: #### C BC, CMP, ESR #### [facility] [address] [place] [address] [place] Neutrophils (Bld) [#/Vol] 2.7 10*3/uL Normal 1.8-7.7 [facility] Comment on above: Performed By: #### C BC, CMP, ESR #### [facility] [address] [place] [address] [place] Neutrophils/100 WBC (Bld) 56.8 % Normal . [facility] Comment on above: Performed By: #### C BC, CMP, ESR #### [facility] [address] [place] [address] [place] NRBC% 0.1 /100{WBC} Normal 0-0.5 [facility] Comment on above: Performed By: #### C BC, CMP, ESR #### [facility] [address] [place] [address] [place] Platelet mean volume (Bld) [Entitic vol] 8.9 fL Normal 6.3-10.7 [facility] Comment on above: Performed By: #### C BC, CMP, ESR #### [facility] [address] [place] [id number] [place] Platelets (Bld) [#/Vol] 276 10*3/uL Normal 150-450 [facility] Comment on above: Performed By: #### C BC, CMP, ESR #### [facility] [address] [place] [id number] [place] RBC (Bld) [#/Vol] 3.80 10*6/uL Normal 3.60-5.00 [facility] Comment on above: Performed By: #### C BC, CMP, ESR #### [address] WBC (Bld) [#/Vol] 4.8 10*3/uL Normal 3.8-11.6 [facility] Comment on above: Performed By: #### C BC, CMP, ESR #### [address] Comprehensive Metabolic Pane canelo 04-29-2023 Albumin [Mass/Vol] 4.4 g/dL Normal 3.5-5.7 [facility] Comment on above: Performed By: #### C BC, CMP, ESR #### [address] Albumin/Globulin [Mass ratio] 1.6 {ratio} Normal [facility] Comment on above: Performed By: #### C BC, CMP, ESR #### [address] ALP [Catalytic activity/Vol] 79 U/L Normal 34-104 [facility] Comment on above: Result Comment: PERF ORMED BY: [place] [address] PATHOLOGIST [employer] ASSOCIATE ONEIL GAMA M.D. Performed By: #### C BC, CMP, ESR #### [address] ALT [Catalytic activity/Vol] 17 U/L Normal 7-52 [facility] Comment on above: Performed By: #### C BC, CMP, ESR #### [address] Anion gap [Moles/Vol] 9.0 mmol/L Normal 6.0-15.0 [facility] Comment on above: Performed By: #### C BC, CMP, ESR #### [address] AST [Catalytic activity/Vol] 20 U/L Normal 13-39 [facility] Comment on above: Performed By: #### C BC, CMP, ESR #### [facility] [address] [place] [address] [place] Bilirubin [Mass/Vol] 0.8 mg/dL Normal 0.3-1.0 [facility] Comment on above: Performed By: #### C BC, CMP, ESR #### [facility] [address] [place] [address] [place] Calcium [Mass/Vol] 9.6 mg/dL Normal 8.6-10.3 [facility] Comment on above: Performed By: #### C BC, CMP, ESR #### [facility] [address] [place] [id number] [place] Chloride [Moles/Vol] 98 mmol/L Normal 98-107 [facility] Comment on above: Performed By: #### C BC, CMP, ESR #### [facility] [address] [place] [id number] [place] CO2 [Moles/Vol] 29.3 mmol/L Normal 21.0-31.0 [facility] Comment on above: Performed By: #### C BC, CMP, ESR #### [facility] [address] [place] [id number] [place] Creatinine [Mass/Vol] 0.73 mg/dL Normal 0.60-1.20 [facility] Comment on above: Performed By: #### C BC, CMP, ESR #### [facility] [address] [place] [id number] [place] GFR/1.73 sq M.predicted MDRD (S/P/Bld) [Vol rate/Area] mL/min/{1.73_m2} Normal [facility] Comment on above: Performed By: #### C BC, CMP, ESR #### [facility] [address] [place] [id number] [place] Globulin (S) [Mass/Vol] 2.7 g/dL Normal [facility] Comment on above: Performed By: #### C BC, CMP, ESR #### [facility] [address] [place] [id number] [place] Glucose [Mass/Vol] 83 mg/dL Normal 70-100 [facility] Comment on above: Result Comment: [place] Glucose Reference Range is dependent on time and content of last meal. Glucose of more than 200 mg/dL in a nonstressed, ambulatory subject supports the diagnosis of Diabetes Mellitus. ADA recommended reference range Performed By: #### C BC, CMP, ESR #### [facility] [address] Potassium [Moles/Vol] 4.3 mmol/L Normal 3.5-5.1 [facility] Comment on above: Performed By: #### C BC, CMP, ESR #### [facility] [address] Protein [Mass/Vol] 7.1 g/dL Normal 6.4-8.9 [facility] Comment on above: Performed By: #### C BC, CMP, ESR #### [facility] [address] Sodium [Moles/Vol] 132 mmol/L Low 136-145 [facility] Comment on above: Performed By: #### C BC, CMP, ESR #### [facility] [address] [place] [id number] [place] Urea nitrogen [Mass/Vol] 18 mg/dL Normal 7-25 [facility] Comment on above: Performed By: #### C BC, CMP, ESR #### [facility] [address] [place] [id number] [facility] Creatinine [Mass/volume] in Serum or PlasmaOrdered By: Tamera Randall on 04-29-2023 Creatinine [Mass/Vol] 0.73 mg/dL 0.60-1.20 [facility] Eosinophils Auto (Bld) [#/Vo l]Ordered By: Tamera Randall on 04-29-2023 Eosinophils (Bld) [#/Vol] 0.2 10*3/uL 0.0-0.45 [facility] Eosinophils/100 WBC Auto (Bl d)Ordered By: Tamera Randall on 04-29-2023 Eosinophils/100 WBC (Bld) 4.2 % . [facility] Erythrocyte Sedimentation Ra eulalio 04-29-2023 ESR (Bld) [Velocity] 17 mm/h Normal 0-29 [facility] Comment on above: Result Comment: PERF ORMED BY: [facility] [address] [place] [address] PATHOLOGIST C[employer] ASSOCIATE ONEIL GAMA M.D. Performed By: #### C BC, CMP, ESR #### [facility] [address] Erythrocyte distribution wid th Auto (RBC) [Ratio]Ordered By: Tamera Randall on 04-29-2023 Erythrocyte distribution width (RBC) [Ratio] 13.3 % 11.9-15.3 [facility] Erythrocyte sedimentation ra te by Photometric methodOrdered By: Tamera Randall on 04-29-2023 ESR Photometric method (Bld) [Velocity] 17 mm/hr 0-29 [facility] Globulin Calc (S) [Mass/Vol] Ordered By: Tamera Randall on 04-29-2023 Globulin (S) [Mass/Vol] 2.7 g/dL F [facility] Glucose [Mass/volume] in Ser um or PlasmaOrdered By: Tamera Randall on 04-29-2023 Glucose [Mass/Vol] 83 mg/dL 70-100 [facility] Comment on above: ADA recommended refe rence rangeRandom Glucose Reference Range is dependent on time and content of last meal. Glucose of more than 200 mg/dL in a nonstressed, ambulatory subject supports the diagnosis of Diabetes Mellitus. Hematocrit Auto (Bld) [Volum e fraction]Ordered By: Tamera Randall on 04-29-2023 Hematocrit (Bld) [Volume fraction] 34.2 % 34.0-46.4 [facility] Hemoglobin [Mass/volume] in BloodOrdered By: Tamera Randall on 04-29-2023 Hemoglobin (Bld) [Mass/Vol] 11.5 g/dL 11.8-15.4 [facility] Leukocytes [#/volume] correc taylor for nucleated erythrocytes in Blood by Automated counOrdered By: Tamera Randall on 04-29-2023 WBC corrected for nucl RBC Auto (Bld) [#/Vol] 4.8 10*3/uL 3.8-11.6 [facility] Lymphocytes Auto (Bld) [#/Vo l]Ordered By: Tamera Randall on 04-29-2023 Lymphocytes (Bld) [#/Vol] 1.4 10*3/uL 1.00-4.8 [facility] Lymphocytes/100 WBC Auto (Bl d)Ordered By: Tamera Randall on 04-29-2023 Lymphocytes/100 WBC (Bld) 29.9 % . [facility] MCH Auto (RBC) [Entitic mass ]Ordered By: Tamera Randall on 04-29-2023 MCH (RBC) [Entitic mass] 30.3 pg 24.7-34.3 [facility] MCHC Auto (RBC) [Mass/Vol]Or dered By: Tamera Randall on 04-29-2023 MCHC (RBC) [Mass/Vol] 33.7 g/dL 32.0-35.0 [facility] MCV Auto (RBC) [Entitic vol] Ordered By: Tamera Randall on 04-29-2023 MCV (RBC) [Entitic vol] 90.0 fL 80-100 [facility] Monocytes Auto (Bld) [#/Vol] Ordered By: Tamera Randall on 04-29-2023 Monocytes (Bld) [#/Vol] 0.4 10*3/uL 0.0-0.8 [facility] Monocytes/100 WBC Auto (Bld) Ordered By: Tamera Randall on 04-29-2023 Monocytes/100 WBC (Bld) 8.2 % . [facility] Neutrophils Auto (Bld) [#/Vo l]Ordered By: Tamera Randall on 04-29-2023 Neutrophils (Bld) [#/Vol] 2.7 10*3/uL 1.8-7.7 [facility] Neutrophils/100 WBC Auto (Bl d)Ordered By: Tamera Randall on 04-29-2023 Neutrophils/100 WBC (Bld) 56.8 % . [facility] No Panel InformationOrdered By: Tamera Randall on 04-29-2023 Estimated GFR (CKD-EPI) > 60.0 mL/Min [facility] Creatinine Clearance (Chem N/A [facility] Nucleated erythrocytes [Pres ence] in Blood by Automated countOrdered By: Tamera Randall on 04-29-2023 Nucleated RBC Auto Ql (Bld) 0.1 /100{WBC} 0-0.5 [facility] Platelet mean volume Auto (B ld) [Entitic vol]Ordered By: Tamera Randall on 04-29-2023 Platelet mean volume (Bld) [Entitic vol] 8.9 fL 6.3-10.7 [facility] Platelets Auto (Bld) [#/Vol] Ordered By: Tamera Randall on 04-29-2023 Platelets (Bld) [#/Vol] 276 10*3/uL 150-450 [facility] Potassium [Moles/volume] in Serum or PlasmaOrdered By: Tamera Randall on 04-29-2023 Potassium [Moles/Vol] 4.3 mmol/L 3.5-5.1 [facility] Protein [Mass/volume] in Ser um or PlasmaOrdered By: Tamera Randall on 04-29-2023 Protein [Mass/Vol] 7.1 g/dL 6.4-8.9 [facility] RBC Auto (Bld) [#/Vol]Ordere d By: Tamera Randall on 04-29-2023 RBC (Bld) [#/Vol] 3.80 10*6/uL 3.60-5.00 [facility] Serum or plasma albumin/glob ulin mass ratioOrdered By: Tamera Randall on 04-29-2023 Albumin/Globulin [Mass ratio] 1.6 {ratio} [facility] Serum or plasma anion gap de terminationOrdered By: Tamera Randall on 04-29-2023 Anion gap [Moles/Vol] 9.0 mmol/L 6.0-15.0 [facility] Sodium [Moles/volume] in Ser um or PlasmaOrdered By: Tamera Randall on 04-29-2023 Sodium [Moles/Vol] 132 mmol/L 136-145 [facility] Urea nitrogen [Mass/volume] in Serum or PlasmaOrdered By: Tamera Randall on 04-29-2023 Urea nitrogen [Mass/Vol] 18 mg/dL 7-25 [facility] WBC Auto (Bld) [#/Vol]Ordere d By: Tamera Randall on 04-29-2023 WBC (Bld) [#/Vol] 4.8 10*3/uL 3.8-11.6 [facility] MM screening mammo BI w/CADo n 01-08-2023 MM screening mammo BI w/CAD [facility] [address] Mammography Report Signed Patient: Zeynep Abbasi MR#: [id number] : 1950 Acct:[id number] Age/Sex: 72 / F ADM Date: 01/08/23 [facility]: [facility] Room: Type: [facility] Attending Dr: [...] Leidy Dorman M.D.01/08/2023 3:01 PM Dictation Location: [facility] Transcribed By: [facility] 01/08/23 1501 Dictated By: Leidy Dorman MD 01/08/23 1458 Signed By: 01/08/23 1501 Normal [facility] XR knee LT 2Von 10-29-2022 XR knee LT 2V [facility] [place] [address] XRay Report Signed Patient: Zeynep Abbasi MR#: [id number] : 1950 Acct:[id number] Age/Sex: 72 / F ADM Date: 10/29/22 [...] Jordan Reyes M.D.10/29/2022 3:11 PM Dictation Location: [place] [address] Transcribed By: [facility] 10/29/22 1511 Dictated By: Jordan Reyes II, MD 10/29/22 1510 Signed By: 10/29/22 1511 Normal [facility] Alanine aminotransferase [En zymatic activity/volume] in Serum or PlasmaOrdered By: Tamera Randall on 10-25-2022 ALT [Catalytic activity/Vol] 16 U/L 7-52 [facility] Albumin [Mass/volume] in Ser um or Plasma by Bromocresol green (BCG) dye binding methoOrdered By: Tamera Randall on 10-25-2022 Albumin BCG dye [Mass/Vol] 4.4 g/dL 3.5-5.7 [facility] Alkaline phosphatase [Enzyma tic activity/volume] in Serum or PlasmaOrdered By: Tamera Randall on 10-25-2022 ALP [Catalytic activity/Vol] 72 U/L 34-104 [facility] Aspartate aminotransferase [ Enzymatic activity/volume] in Serum or PlasmaOrdered By: Tamera Randall on 10-25-2022 AST [Catalytic activity/Vol] 21 U/L 13-39 [facility] Basophils Auto (Bld) [#/Vol] Ordered By: Tamera Randall on 10-25-2022 Basophils (Bld) [#/Vol] 0.0 10*3/uL 0.0-0.2 [facility] Basophils/100 WBC Auto (Bld) Ordered By: Tamera Randall on 10-25-2022 Basophils/100 WBC (Bld) 0.7 % . [facility] Bilirubin.total [Mass/volume ] in Serum or PlasmaOrdered By: Tamera Randall on 10-25-2022 Bilirubin [Mass/Vol] 0.7 mg/dL 0.3-1.0 [facility] Calcium [Mass/volume] in Ser um or PlasmaOrdered By: Tamera Randall on 10-25-2022 Calcium [Mass/Vol] 9.2 mg/dL 8.6-10.3 [facility] Carbon dioxide, total [Moles /volume] in Serum or PlasmaOrdered By: Tamera Randall on 10-25-2022 CO2 [Moles/Vol] 27.0 mmol/L 21.0-31.0 [facility] Chloride [Moles/volume] in S jl or PlasmaOrdered By: Tamera Randall on 10-25-2022 Chloride [Moles/Vol] 98 mmol/L 98-107 [facility] Creatinine [Mass/volume] in Serum or PlasmaOrdered By: Tamera Randall on 10-25-2022 Creatinine [Mass/Vol] 0.70 mg/dL 0.60-1.20 [facility] Eosinophils Auto (Bld) [#/Vo l]Ordered By: Tamera Randall on 10-25-2022 Eosinophils (Bld) [#/Vol] 0.2 10*3/uL 0.0-0.45 [facility] Eosinophils/100 WBC Auto (Bl d)Ordered By: Tamera Randall on 10-25-2022 Eosinophils/100 WBC (Bld) 3.2 % . [facility] Erythrocyte distribution wid th Auto (RBC) [Ratio]Ordered By: Tamera Randall on 10-25-2022 Erythrocyte distribution width (RBC) [Ratio] 13.5 % 11.9-15.3 [facility] Erythrocyte sedimentation ra te by Photometric methodOrdered By: Tamera Randall on 10-25-2022 ESR Photometric method (Bld) [Velocity] 23 mm/hr 0-29 [facility] Globulin Calc (S) [Mass/Vol] Ordered By: Tamera Randall on 10-25-2022 Globulin (S) [Mass/Vol] 2.5 g/dL [facility] Glucose [Mass/volume] in Ser um or PlasmaOrdered By: Tamera Randall on 10-25-2022 Glucose [Mass/Vol] 86 mg/dL 70-100 [facility] Comment on above: ADA recommended refe rence rangeRandom Glucose Reference Range is dependent on time and content of last meal. Glucose of more than 200 mg/dL in a nonstressed, ambulatory subject supports the diagnosis of Diabetes Mellitus. Hematocrit Auto (Bld) [Volum e fraction]Ordered By: Tamera Randall on 10-25-2022 Hematocrit (Bld) [Volume fraction] 35.7 % 34.0-46.4 [facility] Hemoglobin [Mass/volume] in BloodOrdered By: Tamera Randall on 10-25-2022 Hemoglobin (Bld) [Mass/Vol] 12.1 g/dL 11.8-15.4 [facility] Leukocytes [#/volume] correc taylor for nucleated erythrocytes in Blood by Automated counOrdered By: Tamera Randall on 10-25-2022 WBC corrected for nucl RBC Auto (Bld) [#/Vol] 4.9 10*3/uL 3.8-11.6 [facility] Lymphocytes Auto (Bld) [#/Vo l]Ordered By: Tamera Randall on 10-25-2022 Lymphocytes (Bld) [#/Vol] 1.4 10*3/uL 1.00-4.8 [facility] Lymphocytes/100 WBC Auto (Bl d)Ordered By: Tamera Randall on 10-25-2022 Lymphocytes/100 WBC (Bld) 28.5 % . [facility] MCH Auto (RBC) [Entitic mass ]Ordered By: Tamera Randall on 10-25-2022 MCH (RBC) [Entitic mass] 30.4 pg 24.7-34.3 [facility] MCHC Auto (RBC) [Mass/Vol]Or dered By: Tamera Randall on 10-25-2022 MCHC (RBC) [Mass/Vol] 33.9 g/dL 32.0-35.0 [facility] MCV Auto (RBC) [Entitic vol] Ordered By: Tamera Randall on 10-25-2022 MCV (RBC) [Entitic vol] 89.6 fL 80-100 [facility] Monocytes Auto (Bld) [#/Vol] Ordered By: Tamera Randall on 10-25-2022 Monocytes (Bld) [#/Vol] 0.4 10*3/uL 0.0-0.8 [facility] Monocytes/100 WBC Auto (Bld) Ordered By: Tamera Randall on 10-25-2022 Monocytes/100 WBC (Bld) 8.7 % . [facility] Neutrophils Auto (Bld) [#/Vo l]Ordered By: Tamera Randall on 10-25-2022 Neutrophils (Bld) [#/Vol] 2.9 10*3/uL 1.8-7.7 [facility] Neutrophils/100 WBC Auto (Bl d)Ordered By: Tamera Randall on 10-25-2022 Neutrophils/100 WBC (Bld) 58.9 % . [facility] No Panel InformationOrdered By: Tamera Randall on 10-25-2022 Estimated GFR (CKD-EPI) > 60.0 mL/Min [facility] Creatinine Clearance (Chem N/A [facility] Nucleated erythrocytes [Pres ence] in Blood by Automated countOrdered By: Tamera Randall on 10-25-2022 Nucleated RBC Auto Ql (Bld) 0.2 /100{WBC} 0-0.5 [facility] Platelet mean volume Auto (B ld) [Entitic vol]Ordered By: Tamera Randall on 10-25-2022 Platelet mean volume (Bld) [Entitic vol] 8.6 fL 6.3-10.7 [facility] Platelets Auto (Bld) [#/Vol] Ordered By: Tamera Randall on 10-25-2022 Platelets (Bld) [#/Vol] 266 10*3/uL 150-450 [facility] Potassium [Moles/volume] in Serum or PlasmaOrdered By: Tamera Randall on 10-25-2022 Potassium [Moles/Vol] 4.1 mmol/L 3.5-5.1 [facility] Protein [Mass/volume] in Ser um or PlasmaOrdered By: Tamera Randall on 10-25-2022 Protein [Mass/Vol] 6.9 g/dL 6.4-8.9 [facility] RBC Auto (Bld) [#/Vol]Ordere d By: Tamera Randall on 10-25-2022 RBC (Bld) [#/Vol] 3.99 10*6/uL 3.60-5.00 [facility] Serum or plasma albumin/glob ulin mass ratioOrdered By: Tamera Randall on 10-25-2022 Albumin/Globulin [Mass ratio] 1.8 {ratio} [facility] Serum or plasma anion gap de terminationOrdered By: Tamera Randall on 10-25-2022 Anion gap [Moles/Vol] 12.1 mmol/L 6.0-15.0 [facility] Sodium [Moles/volume] in Ser um or PlasmaOrdered By: Tamera Randall on 10-25-2022 Sodium [Moles/Vol] 133 mmol/L 136-145 [facility] Urea nitrogen [Mass/volume] in Serum or PlasmaOrdered By: Tamera Randall on 10-25-2022 Urea nitrogen [Mass/Vol] 15 mg/dL 7-25 [facility] WBC Auto (Bld) [#/Vol]Ordere d By: Tamera Randall on 10-25-2022 WBC (Bld) [#/Vol] 4.9 10*3/uL 3.8-11.6 [facility] XR Knee Complete Right*on XR Knee Complete Right* HISTORY: Posteri or knee pain with redness and swelling. COMPARISON: Radiograph 01/21/2019 TECHNIQUE: AP, lateral, and oblique views. FINDINGS: No acute fracture or dislocation. Joint spaces are maintained. Small joint effusion. Soft tissues are within normal limits. IMPRESSION: No acute osseous abnormality. Report reported and signed by Juan Wan on 07/19/2022 1225 Normal [facility] [employer] VITAMIN D 25 OHon 07-15-2022 VIT D 25-OH 55.7 ng/mL Normal [facility] Comment on above: Performed By: #### V ITAD #### [facility] [address] [address] [address] Aniceto Elizondo VIT D RANGES SEE BELOW Normal [facility] Comment on above: Result Comment: <20 ng/mL Vit D deficient 20 - <30 ng/mL Vit D insufficient 30 - 100 ng/mL Vit D sufficient >100 ng/mL Potential Toxicity Performed By: #### V ITAD #### [facility] [address], [place] [address] Dr. Aniceto Elizondo Albumin [Mass/volume] in Ser um or PlasmaOrdered By: Tamera Randall on 04-25-2022 Albumin [Mass/Vol] 4.0 g/dL 3.2-5.5 [facility] Basophils Auto (Bld) [#/Vol] Ordered By: Tamera Randall on 04-25-2022 Basophils (Bld) [#/Vol] 0.1 10*3/uL 0.0-0.2 [facility] Basophils/100 WBC Auto (Bld) Ordered By: Tamera Randall on 04-25-2022 Basophils/100 WBC (Bld) 1.1 % . [facility] Creatinine and Glomerular fi ltration rate.predicted panel (S/P/Bld)Ordered By: Tamera Randall on 04-25-2022 Creatinine [Mass/Vol] 0.64 mg/dL 0.44-1.03 [facility] Eosinophils Auto (Bld) [#/Vo l]Ordered By: Tamera Randall on 04-25-2022 Eosinophils (Bld) [#/Vol] 0.2 10*3/uL 0.0-0.45 [facility] Eosinophils/100 WBC Auto (Bl d)Ordered By: Tamera Randall on 04-25-2022 Eosinophils/100 WBC (Bld) 2.9 % . [facility] Erythrocyte distribution wid th Auto (RBC) [Ratio]Ordered By: Tamera Randall on 04-25-2022 Erythrocyte distribution width (RBC) [Ratio] 13.6 % 11.9-15.3 [facility] Erythrocyte sedimentation ra te by Photometric methodOrdered By: Tamera Randall on 04-25-2022 ESR Photometric method (d) [Velocity] 21 mm/hr 0-29 [facility] Estimated glomerular filtrat ion rate (GFR) non- AmericanOrdered By: Tamera Randall on 04-25-2022 GFR/1.73 sq M.predicted among non-blacks MDRD (S/P/Bld) [Vol rate/Area] > 60 mL/Min [facility] Globulin Calc (S) [Mass/Vol] Ordered By: Tamera Randall on 04-25-2022 Globulin (S) [Mass/Vol] 2.7 g/dL [facility] Hematocrit Auto (Bld) [Volum e fraction]Ordered By: Tamera Randall on 04-25-2022 Hematocrit (Bld) [Volume fraction] 35.1 % 34.0-46.4 [facility] Hemoglobin [Mass/volume] in BloodOrdered By: Tamera Randall on 04-25-2022 Hemoglobin (Bld) [Mass/Vol] 11.9 g/dL 11.8-15.4 [facility] - Hematology and Cell countsOrdered By: Tamera Randall on 04-25-2022 Nucleated RBC/100 WBC (Bld) [Ratio] 0.1 % 0-0.5 [facility] Leukocytes [#/volume] in Blo od by Automated countOrdered By: Tamera Randall on 04-25-2022 WBC (Bld) [#/Vol] 5.6 10*3/uL 4.5-11.0 [facility] Lymphocytes Auto (Bld) [#/Vo l]Ordered By: Tamera Randall on 04-25-2022 Lymphocytes (Bld) [#/Vol] 1.7 10*3/uL 1.00-4.8 [facility] Lymphocytes/100 WBC Auto (Bl d)Ordered By: Tamera Randall on 04-25-2022 Lymphocytes/100 WBC (Bld) 29.8 % . [facility] MCH Auto (RBC) [Entitic mass ]Ordered By: Tamera Randall on 04-25-2022 MCH (RBC) [Entitic mass] 30.7 pg 24.7-34.3 [facility] MCHC Auto (RBC) [Mass/Vol]Or dered By: Tamera Randall on 04-25-2022 MCHC (RBC) [Mass/Vol] 33.9 g/dL 32.0-35.0 [facility] MCV Auto (RBC) [Entitic vol] Ordered By: Tamera Randall on 04-25-2022 MCV (RBC) [Entitic vol] 90.6 fL 80-100 [facility] Monocytes Auto (Bld) [#/Vol] Ordered By: Tamera Randall on 04-25-2022 Monocytes (Bld) [#/Vol] 0.5 10*3/uL 0.0-0.8 [facility] Monocytes/100 WBC Auto (Bld) Ordered By: Tamera Randall on 04-25-2022 Monocytes/100 WBC (Bld) 8.4 % . [facility] Neutrophils Auto (Bld) [#/Vo l]Ordered By: Tamera Randall on 04-25-2022 Neutrophils (Bld) [#/Vol] 3.2 10*3/uL 1.8-7.7 [facility] Neutrophils/100 WBC Auto (Bl d)Ordered By: Tamera Randall on 04-25-2022 Neutrophils/100 WBC (Bld) 57.8 % . [facility] No Panel InformationOrdered By: Tamera Randall on 04-25-2022 Estimated GFR () > 60 mL/Min [facility] Comment on above: GFR estimated refere nce range: According to KDOQI guidelines, <60 ml/min/1.73m2 is sufficient to diagnose a patient with chronic kidney disease. Pharmacy Creatinine Clearance (Chem N/A [facility] Platelet mean volume Auto (B ld) [Entitic vol]Ordered By: Tamera Randall on 04-25-2022 Platelet mean volume (Bld) [Entitic vol] 8.7 fL 6.3-10.7 [facility] Platelets Auto (Bld) [#/Vol] Ordered By: Tamera Randall on 04-25-2022 Platelets (Bld) [#/Vol] 353 10*3/uL 150-450 [facility] Protein [Mass/volume] in Ser um or PlasmaOrdered By: Tamera Randall on 04-25-2022 Protein [Mass/Vol] 6.7 g/dL 6.1-7.9 [facility] RBC Auto (Bld) [#/Vol]Ordere d By: Tamera Randall on 04-25-2022 RBC (Bld) [#/Vol] 3.87 10*6/uL 3.60-5.00 [facility] Serum or plasma alanine craig otransferase measurement without P-5'-P (enzymatic activiOrdered By: Tamera Randall on 04-25-2022 ALT No additional P-5'-P [Catalytic activity/Vol] 23 U/L [facility] Serum or plasma albumin/glob ulin mass ratioOrdered By: Tamera Randall on 04-25-2022 Albumin/Globulin [Mass ratio] 1.5 {ratio} [facility] Serum or plasma alkaline lakisha sphatase measurement (enzymatic activity/volume)Ordered By: Tamera Randall on 04-25-2022 ALP [Catalytic activity/Vol] 72 U/L 32-92 [facility] Serum or plasma anion gap de terminationOrdered By: Tamera Randall on 04-25-2022 Anion gap [Moles/Vol] 14.0 mmol/L 6.0-15.0 [facility] Serum or plasma aspartate am inotransferase measurement (enzymatic activity/volume)Ordered By: Tamera Randall on 04-25-2022 AST [Catalytic activity/Vol] 26 U/L [facility] Serum or plasma calcium yvonne urement (mass/volume)Ordered By: Tamera Randall on 04-25-2022 Calcium [Mass/Vol] 9.8 mg/dL 8.2-10.2 [facility] Serum or plasma chloride elpidio surement (moles/volume)Ordered By: Tamera Randall on 04-25-2022 Chloride [Moles/Vol] 95 mmol/L 95-114 [facility] Serum or plasma glucose yvonne urement (mass/volume)Ordered By: Tamera Randall on 04-25-2022 Glucose [Mass/Vol] 92 mg/dL 70-100 [facility] Comment on above: ADA recommended refe rence rangeRandom Glucose Reference Range is dependent on time and content of last meal. Glucose of more than 200 mg/dL in a nonstressed, ambulatory subject supports the diagnosis of Diabetes Mellitus. Serum or plasma potassium me asurement (moles/volume)Ordered By: Tamera Randall on 04-25-2022 Potassium [Moles/Vol] 4.6 mmol/L 3.5-5.1 [facility] Serum or plasma sodium measu rement (moles/volume)Ordered By: Tamera Randall on 04-25-2022 Sodium [Moles/Vol] 130 mmol/L 136-146 [facility] Serum or plasma total biliru bin measurement (mass/volume)Ordered By: Tamera Randall on 04-25-2022 Bilirubin [Mass/Vol] 0.7 mg/dL 0.3-1.2 [facility] Serum or plasma total carbon dioxide measurement (moles/volume)Ordered By: Tamera Randall on 04-25-2022 CO2 [Moles/Vol] 25.6 mmol/L 22.0-30.0 [facility] [place] Serum or plasma urea nitroge n measurement (mass/volume)Ordered By: Tamera Randall on 04-25-2022 Urea nitrogen [Mass/Vol] 13 mg/dL 03-[address] [facility] [address] Abdomen/Pelvis w/ Contras ton 04-17-2022 [...] by Ky Carvalho on 04/17/2022 1540 Normal [facility] XR Abdomen 2 Viewson 10-05-2 022 XR Abdomen 2 Views HISTORY: Constipation. [...] by Juan Wan on 04/10/2022 1614 Normal [facility] [employer] Covid-19 PCR (CVDTBH)on 02-05 SARS-CoV-2 (COVID-19) RNA NICOLASA+probe Ql (Unsp spec) Not detected Normal NOT DETECTED [facility] Comment on above: Result Comment: This test is not yet approved or cleared by the [place] FDA. When there are no FDA-approved or cleared tests available, and other criteria are met, FDA can make tests available under an emergency access mechanism called an Emergency Use Authorization (EUA). The EUA for this test is supported by the [employer] of Health and Human Service's (HHS's) declaration [...] SARS-CoV-2. Performed By: #### C VDTBH #### [facility] [address] [place] [address] Dr. Aniceto Elizondo LIPID PROFILEon 02-11-2022 CHOL-HDL RATIO NORM SEE BELOW Normal [facility] Comment on above: Result Comment: 3.3 - 4.4 LOW RISK 4.4 - 7.1 AVERAGE RISK 7.1 - 11.0 MODERATE RISK >11.0 HIGH RISK Performed By: #### L IPID, CMP #### [facility] [address], [place] [address] Dr. Aniceto Elizondo Cholesterol [Mass/Vol] 179 mg/dL Normal <=200 [facility] Comment on above: Performed By: #### L IPID, CMP #### [facility] [address], [place] [address] Dr. Aniceto Elizondo Cholesterol in HDL [Mass/Vol] 44 mg/dL Normal 40-60 [facility] Comment on above: Performed By: #### L IPID, CMP #### [facility] [address] [address] [address] Aniceto Elizondo Cholesterol in LDL [Mass/Vol] 94.2 mg/dL Normal [facility] Comment on above: Performed By: #### L IPID, CMP #### [facility] [address] [place] [address] Dr. Aniceto Elizondo Cholesterol.total/Joselyn sterol in HDL [Mass ratio] 4.1 {ratio} Normal [facility] Comment on above: Performed By: #### L IPID, CMP #### [facility] [address] [place] [address] Dr. Aniceto Elizondo HDL NORMAL > or = 60 mg/dl - LO W CARDIOVASCULAR RISK <40 mg/dl - HIGH CARDIOVASCULAR RISK Normal [facility] Comment on above: Performed By: #### L IPID, CMP #### [facility] [address] [place] [address] Dr. Aniceto Elizondo LDL CALC NORMAL SEE BELOW Normal [facility] Comment on above: Result Comment: <100 mg/dl OPTIMAL 100 - 129 mg/dl NEAR OR ABOVE OPTIMAL 130 - 159 mg/dl BORDERLINE HIGH 160 - 189 mg/dl HIGH >190 mg/dl VERY HIGH Performed By: #### L IPID, CMP #### [facility] [address] [place] [address] Dr. Aniceto Elizondo Triglyceride [Mass/Vol] 204 mg/dL Critically high <=150 [facility] Comment on above: Performed By: #### L IPID, CMP #### [facility] [address] [place] [address] Dr. Aniceto Elizondo VLDL CALC 40.8 mg/dL Normal [facility] Comment on above: Performed By: #### L IPID, CMP #### [facility] [address] [place] [address] Dr. Aniceto Elizondo PROF 14(COMP METB)on 022 Albumin [Mass/Vol] 3.8 g/dL Normal 3.4-5.0 [facility] Comment on above: Performed By: #### L IPID, CMP #### [facility] [address] [address] [address] Aniceto Elizondo Albumin/Globulin [Mass ratio] 1.0 {ratio} Normal [facility] Comment on above: Performed By: #### L IPID, CMP #### [facility] [address] [address] [address] Aniceto Elizondo ALP [Catalytic activity/Vol] 76 U/L Normal 46-116 [facility] Comment on above: Performed By: #### L IPID, CMP #### [facility] [address] [address] [address] Aniceto Elizondo ALT [Catalytic activity/Vol] 24 U/L Normal 14-59 [facility] Comment on above: Performed By: #### L IPID, CMP #### [facility] [address] [address] [address] Aniceto Elizondo Anion gap [Moles/Vol] 14.2 mmol/L Normal [facility] Comment on above: Performed By: #### L IPID, CMP #### [facility] [address] [address] [address] Aniceto Elizondo AST [Catalytic activity/Vol] 25 U/L Normal 15-37 [facility] Comment on above: Performed By: #### L IPID, CMP #### [facility] [address] [address] [address] Aniceto Elizondo Bilirubin [Mass/Vol] 0.6 mg/dL Normal 0.2-1.0 [facility] Comment on above: Performed By: #### L IPID, CMP #### [facility] [address] [address] [address] Aniceto Elizondo Calcium [Mass/Vol] 9.1 mg/dL Normal 8.5-10.1 [facility] Comment on above: Performed By: #### L IPID, CMP #### [facility] [address] [address] [address] Aniceto Elizondo Chloride [Moles/Vol] 99 mmol/L Normal 98-107 [facility] Comment on above: Performed By: #### L IPID, CMP #### [facility] [address] [address] [address] Aniceto Elizondo CO2 [Moles/Vol] 28.3 mmol/L Normal 21.0-32.0 [facility] Comment on above: Performed By: #### L IPID, CMP #### [facility] [address] [address] [address] Aniceto Elizondo Creatinine [Mass/Vol] 0.64 mg/dL Normal 0.55-1.02 [facility] Comment on above: Performed By: #### L IPID, CMP #### [facility] [address] [address] [address] Aniceto Elizondo EGFR-AF KITTITIAN >60 Normal >=60 [facility] Comment on above: Performed By: #### L IPID, CMP #### [facility] [address] [address] [address] Aniceto Elizondo EGFR-NON AF KITTITIAN >60 Normal >=60 [facility] Comment on above: Performed By: #### L IPID, CMP #### [facility] [address] [address] [address] Aniceto Elizondo Globulin (S) [Mass/Vol] 3.7 g/dL Normal [facility] Comment on above: Performed By: #### L IPID, CMP #### [facility] [address] [address] [address] Aniceto Elizondo Glucose [Mass/Vol] 102 mg/dL Normal 74-106 [facility] Comment on above: Performed By: #### L IPID, CMP #### [facility] [address] [address] [address] Aniceto Elizondo Potassium [Moles/Vol] 4.5 mmol/L Normal 3.5-5.1 [facility] Comment on above: Performed By: #### L IPID, CMP #### [facility] [address] [address] [address] Aniceto Elizondo Protein [Mass/Vol] 7.5 g/dL Normal 6.4-8.2 [facility] Comment on above: Performed By: #### L IPID, CMP #### [facility] [address] [address] [address] Aniceto Elizondo Sodium [Moles/Vol] 137 mmol/L Normal 136-145 [facility] Comment on above: Performed By: #### L IPID, CMP #### [facility] [address] [address] [address] Aniceto Elizondo Urea nitrogen [Mass/Vol] 12.0 mg/dL Normal 7.0-18.0 [facility] Comment on above: Performed By: #### L IPID, CMP #### [facility] [address] [address] [address] Aniceto Elizondo Urea nitrogen/Creatinine [Mass ratio] 18.8 mg/mg Normal [facility] Comment on above: Performed By: #### L IPID, CMP #### [facility] [address] [address] [address] Aniceto Elizondo COVID-19 SOFIAOrdered By: Maritza Gutierrez on 01-29-2022 SARS-CoV+SARS-CoV-2 (COVID-19) Ag IA.rapid Ql (Resp) Negative Negative [facility] Comment on above: This is a duplicate Michelle SARS Antigen (DUNG) result to be used for statistical tracking purpose only. No Panel InformationOrdered By: Jordan Gutierrez on 01-29-2022 SARS Antigen (LFIA) [facility] HEMOGRAM AND PLATELon 2021 Hematocrit (Bld) [Volume fraction] 34.5 % Critically low 36.0-48.0 [facility] Comment on above: Performed By: #### H H #### [facility] [address] [address] [address] Aniceto Elizondo Hemoglobin (Bld) [Mass/Vol] 11.6 g/dL Critically low 12.0-16.0 [facility] Comment on above: Performed By: #### H H #### [facility] [address] [address] [address] Aniceto Elizondo MCH (RBC) [Entitic mass] 30.9 pg Normal 26.7-34.0 [facility] Comment on above: Performed By: #### H H #### [facility] [address] [place] [address] Dr. Aniceto Elizondo MCHC (RBC) [Mass/Vol] 33.6 g/dL Normal 29.9-35.2 [facility] Comment on above: Performed By: #### H H #### [facility] [address] [place] [address] Dr. Aniceto Elizondo MCV (RBC) [Entitic vol] 91.8 fL Normal 81.0-99.0 [facility] Comment on above: Performed By: #### H H #### [facility] [address] [place] [address] Dr. Aniceto Elizondo PLT 294 103/ul Normal 150-450 [facility] Comment on above: Performed By: #### H H #### [facility] [address] [place] [address] Dr. Aniceto Elizondo RBC 3.76 106/ul Critically low 4.20-5.40 [facility] Comment on above: Performed By: #### H H #### [facility] [address] [place] [address] Dr. Aniceto Elizondo WBC 6.0 103/ul Normal 4.0-11.0 [facility] Comment on above: Performed By: #### H H #### [facility] [address] [place] [address] Dr. Aniceto Elizondo MAGNESIUMon 11-21-2021 Magnesium [Mass/Vol] 2.2 mg/dL Normal 1.8-2.4 [facility] Comment on above: Performed By: #### U RAMON, RENAL, MG #### [facility] [address] [place] [address] Dr. Aniceto Elizondo RENAL FUNCTION PANELon 11-21 Albumin [Mass/Vol] 3.8 g/dL Normal 3.4-5.0 [facility] Comment on above: Performed By: #### U RAMON, RENAL, MG #### [facility] [address] [place] [address] Dr. Aniceto Elizondo Calcium [Mass/Vol] 8.9 mg/dL Normal 8.5-10.1 [facility] Comment on above: Performed By: #### U RAMON, RENAL, MG #### [facility] [facility] [address] [address] [address] Aniceto Elizondo Chloride [Moles/Vol] 97 mmol/L Critically low 98-107 [facility] Comment on above: Performed By: #### U RAMON, RENAL, MG #### [facility] [address] [address] [address] Aniceto Elizondo CO2 [Moles/Vol] 27.1 mmol/L Normal 21.0-32.0 [facility] Comment on above: Performed By: #### U RAMON, RENAL, MG #### [facility] [address] [address] [address] Aniceto Elizondo Creatinine [Mass/Vol] 0.66 mg/dL Normal 0.55-1.02 [facility] Comment on above: Performed By: #### U RAMON, RENAL, MG #### [facility] [address] [address] [address] Aniceto Elizondo EGFR-AF KITTITIAN >60 Normal >=60 [facility] Comment on above: Performed By: #### U RAMON, RENAL, MG #### [facility] [address] [address] [address] Aniceto Elizondo EGFR-NON AF KITT[place]IAN >60 Normal >=60 [facility] Comment on above: Performed By: #### U RAMON, RENAL, MG #### [facility] [address] [address] [address] Aniceto Elizondo Glucose [Mass/Vol] 101 mg/dL Normal 74-106 [facility] Comment on above: Performed By: #### U RAMON, RENAL, MG #### [facility] [address] [address] [address] Aniceto Elizondo Phosphate [Mass/Vol] 4.1 mg/dL Normal 2.6-4.7 [facility] Comment on above: Performed By: #### U RAMON, RENAL, MG #### [facility] [address] [address] [address] Aniceto Elizondo Potassium [Moles/Vol] 4.5 mmol/L Normal 3.5-5.1 [facility] Comment on above: Performed By: #### U RAMON, RENAL, MG #### [facility] [address] [address] [address] Aniceto Elizondo Sodium [Moles/Vol] 131 mmol/L Critically low 136-145 [facility] Comment on above: Performed By: #### U RAMON, RENAL, MG #### [facility] [address] [place] [address] Dr. Aniceto Elizondo Urea nitrogen [Mass/Vol] 16.0 mg/dL Normal 7.0-18.0 [facility] Comment on above: Performed By: #### U RAMON, RENAL, MG #### [facility] [address] [place] [address] Dr. Aniceto Elizondo UA RANDOM W/MICROSCOPICon BACTERIA NONE SEEN Normal NONE SEEN [facility] Comment on above: Performed By: #### U AMIC #### [facility] [address] [place] [address] Dr. Aniceto Elizondo Bilirubin Ql (U) Negative Normal NEGATIVE [facility] Comment on above: Performed By: #### U AMIC #### [facility] [address] [place] [address] Dr. Aniceto Elizondo CAST NONE SEEN Normal NONE SEEN [facility] Comment on above: Performed By: #### U AMIC #### [facility] [address] [place] [address] Dr. Aniceto Elizondo Clarity (U) CLEAR Normal CLEAR [facility] Comment on above: Performed By: #### U AMIC #### [facility] [address] [place] [address] Dr. Aniceto Elizondo Color (U) YELLOW Normal YELLOW [facility] Comment on above: Performed By: #### U AMIC #### [facility] [address] [place] [address] Dr. Aniceto Elizondo Crystals LM Nom (Urine sed) NONE SEEN Normal NONE SEEN [facility] Comment on above: Performed By: #### U AMIC #### [facility] [address] [address] [address] Aniceto Elizondo Epithelial cells LM Ql (Urine sed) FEW Abnormal NONE SEEN /RARE [facility] Comment on above: Performed By: #### U AMIC #### [facility] [address] [address] [address] Aniceto Elizondo Glucose Ql (U) Negative Normal NEGATIVE [facility] Comment on above: Performed By: #### U AMIC #### [facility] [address] [address] [address] Aniceto Elziondo Hemoglobin Ql (U) Negative Normal NEGATIVE [facility] Comment on above: Performed By: #### U AMIC #### [facility] [address] [address] [address] Aniceto Elizondo Ketones Ql (U) Negative Normal NEGATIVE [facility] Comment on above: Performed By: #### U AMIC #### [facility] [address] [address] [address] Aniceto Elizondo LEUKOCYTES Negative Normal NEGATIVE [facility] Comment on above: Performed By: #### U AMIC #### [facility] [address] [address] [address] Aniceto Elizondo MUCOUS NONE SEEN Normal NONE SEEN [facility] Comment on above: Performed By: #### U AMIC #### [facility] [address] [address] [address] Aniceto Elizondo Nitrite Ql (U) Negative Normal NEGATIVE [facility] Comment on above: Performed By: #### U AMIC #### [facility] [address] [address] [address] Aniceto Elizondo pH (U) 7.0 [pH] Normal 5-9 [facility] Comment on above: Performed By: #### U AMIC #### [facility] [address] [address] [address] Aniceto Elizondo RBC NONE SEEN Abnormal 0-2 [facility] Comment on above: Performed By: #### U AMIC #### [facility] [address] [address] [address] Aniceto Elizondo SPEC GRAVITY <=1.005 Abnormal 1.005-<=1.02 5 [facility] Comment on above: Performed By: #### U AMIC #### [facility] [address] [address] [address] Aniceto Elizondo UA PROTEIN Negative Normal NEGATIVE/ TRACE [facility] Comment on above: Performed By: #### U AMIC #### [facility] [address] [address] [address] Aniceto Elizondo Urobilinogen Qn (U) 0.2 {Ada'U}/dL Normal 0.2 - 1. 0 [facility] Comment on above: Performed By: #### U AMIC #### [facility] [address] [place] [address] Dr. Aniceto Elizondo WBC NONE SEEN Normal NONE SEEN [facility] Comment on above: Performed By: #### U AMIC #### [facility] [address] [address] [address] Aniceto Elizondo URIC ACID SERUMon 11-21-2021 Urate [Mass/Vol] 3.4 mg/dL Normal 2.6-6.0 [facility] Comment on above: Performed By: #### U RAMON, RENAL, MG #### [facility] [address] [place] [address] Dr. Aniceto Elizondo URINE T PROTEIN CREAT RATIOo n 11-21-2021 UR PROT CREAT RAT 0.40 Normal [facility] Comment on above: Performed By: #### U RTPCR #### [facility] [address] [place] [address] Dr. Aniceto Elizondo UR TOTAL PROTEIN <6.0 Normal <=12.0 [facility] Comment on above: Performed By: #### U RTPCR #### [facility] [address] [place] [address] Dr. Aniceto Elizondo URINE CREAT 14.89 mg/dL Critically low 20.00-300.00 [facility] Comment on above: Performed By: #### U RTPCR #### [facility] [address], [place] [address] Dr. Aniceto Elizondo VITAMIN D 25 OHon 11-21-2021 VIT D 25-OH 50.4 ng/mL Normal [facility] Comment on above: Performed By: #### V ITAD #### [facility] [address], [place] [address] Dr. Aniceto Elizondo VIT D RANGES SEE BELOW Normal [facility] Comment on above: Result Comment: <20 ng/mL Vit D deficient 20 - <30 ng/mL Vit D insufficient 30 - 100 ng/mL Vit D sufficient >100 ng/mL Potential Toxicity Performed By: #### V ITAD #### [facility] [address] [address] [address] Aniceto Elizondo CNOVon 05-03-2021 CNSUSHANT Office Visit (KANDACE ) ZEYNEP ABBASI ([id number]) 1950 F Date Time Provider Department 05/03/21 11:30 AM JOSE G WELLS During your visit today, we recorded the following information about you: Pulse Blood pressure 83/minute 182/94 Jose G Wells MD 05/04/2021 10:18 AM Unsigned Partner Manager NAME: ZEYNEP ABBASI CLINIC NO: [id number] DATE OF SERVICE: 05/03/2021 DATE OF : [...] She has had an ultrasound done at [facility] that was done in February which [...] Jose G Wells M.D. 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 THIS DOCUMENT IS NOT AVAILABLE FOR PATIENT CARE * * * Document text: NAME: ZEYNEP ABBASI CLINIC NO: [id number] DATE OF SERVICE: 05/03/2021 DATE OF : 1950 She is here to see me in follow-up for a le (more content not included)... Normal [facility] ZEYNEP ABBASI ([id number]) 1950 F Date Time Provider Department 02/22/21 HUDSON CASTAÑEDA During your visit today, we recorded the following information about you: Shirley Shay 02/22/2021 2:43 PM Signed Reason for call: Mrs Abbasi called and she would like to schedule a follow up appointment with DR Wells , last seen 04/26/2019. Home and cell number : [phone] Diagnosis Renal Artery stenosis Kind Regards, Shirley Shah Coord 02/23/2021 5:13 PM Signed Zeynep Abbasi appointments have been scheduled accordingly. Patient has been notified via telephone and [employer] and appointment schedule sent via US Mail Patient will also be hand carrying CD with images. Maribeth Sahh Coord February 23, 2021 5:13 PM Allergies [...] Status:Closed by SHIRLEY SHAY on 02/22/21 Normal [facility] Albumin [Mass/volume] in Ser um or Plasmaon 07-05-2020 Albumin [Mass/Vol] 4.2 g/dL 3.2-5.5 [facility] Automated basophil %on 07-05 Basophils/100 WBC (Bld) 0.6 % [facility] Automated basophil counton 1 Basophils (Bld) [#/Vol] 0.0 10*3/uL 0.0-0.2 [facility] Automated blood lymphocyte c ount (number/volume)on 07-05-2020 Lymphocytes (Bld) [#/Vol] 1.2 10*3/uL 1.00-4.8 [facility] Automated blood lymphocyte c ount as percentage of total leukocyteson 07-05-2020 Lymphocytes/100 WBC (Bld) 16.6 % [facility] Automated blood monocyte cou nton 07-05-2020 Monocytes (Bld) [#/Vol] 0.4 10*3/uL 0.0-0.8 [facility] Automated blood platelet cou nt (count/volume)on 07-05-2020 Platelets (Bld) [#/Vol] 282 10*3/uL 150-450 [facility] Automated blood platelet elpidio n volume measurementon 07-05-2020 Platelet mean volume (Bld) [Entitic vol] 8.7 fL 6.3-10.7 [facility] Automated eosinophil %on Eosinophils/100 WBC (Bld) 0.4 % [facility] Automated eosinophil counton 07-05-2020 Eosinophils (Bld) [#/Vol] 0.0 10*3/uL 0.0-0.45 [facility] Automated erythrocyte distri bution width ratioon 07-05-2020 Erythrocyte distribution width (RBC) [Ratio] 13.7 % 11.9-15.3 [facility] Automated erythrocyte mean c orpuscular hemoglobin (mass per erythrocyte)on 07-05-2020 MCH (RBC) [Entitic mass] 30.2 pg 24.7-34.3 [facility] Automated erythrocyte mean c orpuscular hemoglobin concentration measurement (mass/volon 07-05-2020 MCHC (RBC) [Mass/Vol] 33.1 g/dL 32.0-35.0 [facility] Automated erythrocyte mean c orpuscular volumeon 07-05-2020 MCV (RBC) [Entitic vol] 91.1 fL 80-100 [facility] Automated monocyte %on 07-05 Monocytes/100 WBC (Bld) 5.3 % [facility] Automated neutrophil %on Neutrophils/100 WBC (Bld) 77.1 % [facility] Blood erythrocytes automated count (number/volume)on 07-05-2020 RBC (Bld) [#/Vol] 3.94 10*6/uL 3.60-5.00 [facility] Blood hemoglobin measurement (mass/volume)on 07-05-2020 Hemoglobin (Bld) [Mass/Vol] 11.9 g/dL 11.8-15.4 [facility] Blood leukocytes automated c ount (number/volume)on 07-05-2020 WBC (Bld) [#/Vol] 7.1 10*3/uL 4.5-11.0 [facility] Blood neutrophil count by au tomated method (number/volume)on 07-05-2020 Neutrophils (Bld) [#/Vol] 5.4 10*3/uL 1.8-7.7 [facility] Cholesterol [Mass/volume] in Serum or Plasmaon 07-05-2020 Cholesterol [Mass/Vol] 173 mg/dL 140-200 [facility] Comment on above: Chol less than 200 m g/dl low riskChol 201-239 mg/dl borderline riskChol 240 mg/dl and greater high risk Cholesterol in LDL [Mass/vol ume] in Serum or Plasma by calculationon 07-05-2020 Cholesterol in LDL [Mass/Vol] 93 mg/dL 0-100 [facility] Comment on above: LDL ATP III CLASSIFI CATIONLDL less than 100 mg/dL OptimalLDL 100-129 mg/dL Near or above optimalLDL 130-159 mg/dL Borderline highLDL 160-189 mg/dL HighLDL greater than 189 mg/dL Very high Cholesterol in VLDL [Mass/vo lume] in Serum or Plasma by calculationon 07-05-2020 Cholesterol in VLDL [Mass/Vol] 17 mg/dL [facility] Erythrocyte sedimentation ra te by Photometric methodon 07-05-2020 ESR Photometric method (Bld) [Velocity] 19 mm/hr 0-29 [facility] Estimated glomerular filtrat ion rate (GFR) non- Americanon 07-05-2020 GFR/1.73 sq M predicted among non-blacks MDRD (S/P/Bld) [Vol rate/Area] mL/min/{1.73_m2} [facility] Hematocrit [Volume Fraction] of Blood by Automated counton 07-05-2020 Hematocrit (Bld) [Volume fraction] 35.9 % 34.0-46.4 [facility] Otheron 07-05-2020 GFR/1.73 sq M.predicted MDRD (S/P/Bld) [Vol rate/Area] mL/min/{1.73_m2} [facility] Comment on above: GFR estimated refere nce range: According to KDOQI guidelines, <60 ml/min/1.73m2 is sufficient to diagnose a patient with chronic kidney disease. Nucleated RBC/100 WBC (Bld) [Ratio] 0.0 % 0-0.5 [facility] Creatinine Clearance (Chem N/A [facility] Protein [Mass/volume] in Ser um or Plasmaon 07-05-2020 Protein [Mass/Vol] 7.2 g/dL 6.1-7.9 [facility] Serum globulin measurement b y calculation (mass/volume)on 07-05-2020 Globulin (S) [Mass/Vol] 3.0 g/dL [facility] Serum or plasma alanine craig otransferase measurement without P-5'-P (enzymatic activion 07-05-2020 ALT No additional P-5'-P [Catalytic activity/Vol] 23 U/L 1060 [facility] Serum or plasma albumin/glob ulin mass ratioon 07-05-2020 Albumin/Globulin [Mass ratio] 1.4 {ratio} [facility] Serum or plasma alkaline lakisha sphatase measurement (enzymatic activity/volume)on 07-05-2020 ALP [Catalytic activity/Vol] 63 U/L 3292 [facility] Serum or plasma aspartate am inotransferase measurement (enzymatic activity/volume)on 07-05-2020 AST [Catalytic activity/Vol] 27 U/L 1042 [facility] Serum or plasma calcium yvonne urement (mass/volume)on 07-05-2020 Calcium [Mass/Vol] 9.4 mg/dL 8.2-10.2 [facility] Serum or plasma chloride elpidio surement (moles/volume)on 07-05-2020 Chloride [Moles/Vol] 96 mmol/L 95-114 [facility] Serum or plasma creatinine m easurement with calculation of estimated glomerular filtron 07-05-2020 Creatinine [Mass/Vol] 0.64 mg/dL 0.44-1.03 [facility] Serum or plasma glucose yvonne urement (mass/volume)on 07-05-2020 Glucose [Mass/Vol] 114 mg/dL 70-100 [facility] Comment on above: ADA recommended refe rence rangeRandom Glucose Reference Range is dependent on time and content of last meal. Glucose of more than 200 mg/dL in a nonstressed, ambulatory subject supports the diagnosis of Diabetes Mellitus. Serum or plasma high density lipoprotein (HDL) cholesterol measurementon 07-05-2020 Cholesterol in HDL [Mass/Vol] 63 mg/dL 35-85 [facility] Comment on above: HDL CHOL ATP-III CLA SSIFICATION Cardiovascular RiskHDL > or equal to 60 mg/dL LOWHDL < 40 mg/dL HIGH Serum or plasma potassium me asurement (moles/volume)on 07-05-2020 Potassium [Moles/Vol] 3.9 mmol/L 3.5-5.1 [facility] Serum or plasma sodium measu rement (moles/volume)on 07-05-2020 Sodium [Moles/Vol] 131 mmol/L 136-146 [facility] Serum or plasma total biliru bin measurement (mass/volume)on 07-05-2020 Bilirubin [Mass/Vol] 0.6 mg/dL 0.3-1.2 [facility] Serum or plasma total carbon dioxide measurement (moles/volume)on 07-05-2020 CO2 [Moles/Vol] 24.3 mmol/L 22.0-30.0 [facility] Serum or plasma total choles terol/high density lipoprotein (HDL) cholesterol mass ashok 07-05-2020 Cholesterol.total/Joselyn sterol in HDL [Mass ratio] 2.7 {ratio} [facility] Serum or plasma urea nitroge n measurement (mass/volume)on 07-05-2020 Urea nitrogen [Mass/Vol] 15 mg/dL 9-23 [facility] Triglyceride [Mass/volume] i n Serum or Plasmaon 07-05-2020 Triglyceride [Mass/Vol] 86 mg/dL 35-149 [facility] Comment on above: TRIG ATP III CLASSIF ICATIONTRIG less than 150 mg/dL NormalTRIG 150-199 mg/dL Borderline highTRIG 200-500 mg/dL High TRIG greater than 500 mg/dL Very highStandard traceable to the Center for Disease Conrtrol and Prevention (CDC) test method. Coding Summary.on 06-19-2018 Coding Summary. CODING DATE: 06/19/2018 FINAL [facility] STATUS: Home (Routine DC) PAYOR: Medicare APC [...] Revised Date Saved: 06/19/2018 01:41 pm Normal [facility] Main OR Intraoperative Recor leela 06-18-2018 Main OR Intraoperative Record IntraOp Document Type FTURO Summary Primary Physician: Khadar Begum Jr., MD Finalized Date/Time: 06/18/18 14:22:44 Pt. Name: ZEYNEP ABBASI.O.B./Sex: 1950 Female Med Rec #: [id number] Physician: Khadar Begum Jr., MD Financial #: [id number] Pt. Type: O Room/Bed: / Admit/Disch: 06/18/18 13:04:11 - Institution: Case Times FTURO Entry 1 Patient Times In Room 06/18/18 14:16:00 Out Room 06/18/18 14:22:00 Procedure Times Start 06/18/18 14:18:00 Stop 06/18/18 14:20:00 Anesthesia Times Last Modified By: Barrera SIMON, RN, Heather 06/18/18 14:20:03 Case Attendance FTURO Entry 1 Entry 2 Entry 3 Case Attendee Khadar Begum Jr., MD, RN, [facility], Latasha Romero Role Performed Surgeon - Primary Hr Leader - Primary Scrub - Primary Time In [...] CYSTOSCOPY W/UD Primary Procedure Yes Primary Surgeon Khadar Begum Jr., MD Start 06/18/18 14:18:00 Stop 06/18/18 14:20:00 Anesthesia [...] MD, Khadar Mcmillan, Verified (If Participants Barrera SIMON, ISRA, Applicable) Mallory Romero CST, Gwen E Time [...] Barrera SIMON RN, Kelly 06/18/18 14:22 Normal [facility] Main OR Preoperative Recordo n 06-18-2018 Main OR Preoperative Record Holding Area Document Type FTURO Summary Primary Physician: Khadar Begum Jr., MD Finalized Date/Time: 06/18/18 13:22:18 Pt. Name: ZEYNEP ABBASIO.B./Sex: 1950 Female Med Rec #: [id number] Physician: Khadar Begum Jr., MD Financial #: [id number] Pt. Type: O Room/Bed: / Admit/Disch: 06/18/18 [...] Pain: No Comment: pr Skin Integrity Intact, [place], Warm, & Dry Vitals - EU Blood Pressure 155/79 Pulse 78 bpm Respirations 18 br/min SPO2 Last Modified By: Maryan Cortes LPN 06/18/18 13:22:13 Finalized By: Maryan Cortes LPN Document Signatures Signed By: Maryan Cortes LPN 06/18/18 13:22 [facility] Operative Reporton 8 Operative Report Patient: YVAN [...] urine. The Urethra was dilated to: 26 Chinese w/ sounds. Devices Implanted: None. Removal: Cystoscope is removed, The patient tolerated it well. Postoperative Information Discharge: Patient is discharged home with antibiotic coverage, Follow up arranged. Normal [facility] Comment on above: Result Comment: Elec tronically Signed By: Khadar Begum Jr., MD\.br\Date and Time Signed: 06/18/18 14:22 EST Vital Signs Date Time Vital Sign Value Performing Clinician Facility 11-28-2023 13:44-0400 Body height 175.26 cm MD Hudson Castañeda Work Phone: [facility] 11-28-2023 13:44-0400 Body mass index (BMI) [Ratio] 25.5 kg/m2 MD Hudson Castañeda Work Phone: [facility] 11-28-2023 13:44-0400 Body temperature 98.1 [degF] MD Hudson Castañeda Work Phone: [facility] 11-28-2023 13:44-0400 Body weight 78.52 kg MD Hudson Castañeda Work Phone: [facility] 11-28-2023 13:44-0400 Diastolic blood pressure 71 mm[Hg] MD Hudson Castañeda Work Phone: [facility] 11-28-2023 13:44-0400 Heart rate 69 /min MD Hudson Castañeda Work Phone: [facility] 11-28-2023 13:44-0400 Respiratory rate 18 /min MD Hudson Castañeda Work Phone: [facility] 11-28-2023 13:44-0400 SaO2% (BldA) [Mass fraction] 95 % MD Hudson Castañeda Work Phone: [facility] 11-28-2023 13:44-0400 Systolic blood pressure 128 mm[Hg] MD Hudson Castañeda Work Phone: [facility] 11-13-2023 11:00-0400 Body height 175.26 cm MD Hudson Castañeda Work Phone: [facility] 11-13-2023 11:00-0400 Body mass index (BMI) [Ratio] 25.5 kg/m2 MD Hudson Castañeda Work Phone: [facility] 11-13-2023 11:00-0400 Body temperature 96.5 [degF] MD Hudson Castañeda Work Phone: [facility] 11-13-2023 11:00-0400 Body weight 78.58 kg MD Hudson Castañeda Work Phone: [facility] 11-13-2023 11:00-0400 Diastolic blood pressure 70 mm[Hg] MD Hudson Castañeda Work Phone: [facility] 11-13-2023 11:00-0400 Heart rate 72 /min MD Hudson Castañeda Work Phone: [facility] 11-13-2023 11:00-0400 Respiratory rate 16 /min MD Hudson Castañeda Work Phone: [facility] 11-13-2023 11:00-0400 SaO2% (BldA) [Mass fraction] 98 % MD Hudson Castañeda Work Phone: [facility] 11-13-2023 11:00-0400 Systolic blood pressure 130 mm[Hg] MD Hudson Castañeda Work Phone: [facility] 12-05-2022 11:00-0400 Body height 175.26 cm Gonsalo You Other [employer] Other 12-05-2022 11:00-0400 Body mass index (BMI) [Ratio] 25.75 kg/m2 Gonsalo You Other [employer] Other 12-05-2022 11:00-0400 Body temperature 96.6 [degF] Gonsalo You Other [employer] Other 12-05-2022 11:00-0400 Body weight 79.11 kg Gonsalo You Other [employer] Other 12-05-2022 11:00-0400 Diastolic blood pressure 72 mm[Hg] Gonsalo You Other [employer] Other 12-05-2022 11:00-0400 Respiratory rate 18 /min Gonsalo You Other [employer] Other 12-05-2022 11:00-0400 SaO2% (BldA) [Mass fraction] 98 % Gonsalo You Other [employer] Other 12-05-2022 11:00-0400 Systolic blood pressure 139 mm[Hg] Gonsalo You Other [facility] [employer] Other 01-31-2022 09:30-0400 Diastolic blood pressure 78 mm[Hg] MD Hudson Castañeda Work Phone: [facility] 01-31-2022 09:30-0400 Heart rate 69 /min MD Hudson Castañeda Work Phone: [facility] 01-31-2022 09:30-0400 Respiratory rate 16 /min MD Hudson Castañeda Work Phone: [facility] 01-31-2022 09:30-0400 SaO2% (BldA) [Mass fraction] 99 % MD Hudson Castañeda Work Phone: [facility] 01-31-2022 09:30-0400 Systolic blood pressure 124 mm[Hg] MD Hudson Castañeda Work Phone: [facility] [facility] 01-31-2022 08:00-0400 Body height 175.26 cm MD Hudson Castañeda Work Phone: [facility] 01-31-2022 08:00-0400 Body temperature 98.5 [degF] MD Hudson Castañeda Work Phone: [facility] 01-31-2022 08:00-0400 Body weight 74.84 kg MD Hudson Castañeda Work Phone: [facility] 11-29-2021 11:20-0400 Body height 175.26 cm Gonsalo You Other [facility] Other 11-29-2021 11:20-0400 Body mass index (BMI) [Ratio] 26.25 kg/m2 Gonsalo You Other [facility] Other 11-29-2021 11:20-0400 Body temperature 96.5 [degF] Gonsalo You Other [facility] Other 11-29-2021 11:20-0400 Body weight 80.65 kg Gonsalo You Other [facility] Other 11-29-2021 11:20-0400 Diastolic blood pressure 90 mm[Hg] Gonsalo You Other [facility] Other 11-29-2021 11:20-0400 Respiratory rate 18 /min Gonsalo You Other [facility] Other 11-29-2021 11:20-0400 SaO2% (BldA) [Mass fraction] 95 % Gonsalo You Other [facility] Other 11-29-2021 11:20-0400 Systolic blood pressure 160 mm[Hg] Gonsalo You Other [facility] Other Encounters Encounter Date Encounter Type Care Provider Facility Start: 12-31-2023 End: 12-31-2023 ambulatory HUDSON CASTAÑEDA Not Available Start: 12-23-2023 End: 12-23-2023 ambulatory HUDSON CASTAÑEDA Not Available Start: 12-08-2023 ambulatory DEB LÓPEZ [facility] Start: 12-03-2023 End: 12-03-2023 ambulatory HUDSON CASTAÑEDA Not Available Start: 11-28-2023 End: 11-28-2023 ambulatory MD Hudson Castañeda Work Phone: [facility] Work Phone: Start: 11-28-2023 End: 11-28-2023 Patient encounter procedure MD Hudson Castañeda Work Phone: [facility] Jose Luis Work Phone: Start: 11-25-2023 End: 11-26-2023 ambulatory [facility] Start: 11-13-2023 End: 11-13-2023 ambulatory MD Hudson Castañeda Work Phone: [facility] Work Phone: Start: 11-13-2023 End: 11-13-2023 Patient encounter procedure MD Hudson Casatñeda Work Phone: [facility] Nephrology Jose Luis Work Phone: Start: 11-11-2023 End: 11-11-2023 ambulatory OLIVE ALFREDONER Not Available Start: 11-03-2023 End: 11-03-[address] [facility] Start: 10-27-2023 End: 10-27-2023 ambulatory Tamera Randall Facility:[facility] Start: 10-27-2023 End: 10-27-2023 ambulatory MD Hudson Castañeda Work Phone: [facility] Work Phone: Start: 10-27-2023 End: 10-27-2023 Patient encounter procedure MD Hudson Castañeda Work Phone: [facility] [address] Work Phone: Start: 10-17-2023 End: 10-18-2023 ambulatory [facility] Start: 05-08-2023 End: 05-08-2023 ambulatory Gonsalo You Other [facility] Other Start: 05-08-2023 Telephone encounter Gonsalo You [facility] Start: 04-29-2023 End: 04-29-2023 ambulatory Husdon Castañeda Facility:[facility] Start: 04-29-2023 End: 04-29-2023 ambulatory MD Hudson Castañeda Work Phone: [facility] Work Phone: Start: 04-29-2023 End: 04-29-2023 Patient encounter procedure MD Hudson Castañeda Work Phone: [facility] [address] Work Phone: Start: 01-08-2023 End: 01-08-2023 ambulatory José Luis Brennan Facility:[facility] Start: 01-08-2023 End: 01-08-2023 ambulatory MD Hudson Castañead Work Phone: [facility] Work Phone: Start: 01-08-2023 End: 01-08-2023 Patient encounter procedure MD Hudson Castañeda Work Phone: [facility] Work Phone: Start: 12-05-2022 End: 12-05-2022 ambulatory Gonsalo Birchr Other [facility] Other Start: 12-05-2022 Office outpatient visit 25 minutes Gonsalojody [facility] Jose Luis Start: 10-29-2022 End: 10-29-2022 ambulatory Torie Stafford Facility:[facility] Start: 10-29-2022 End: 10-29-2022 ambulatory MD Hudson Castañeda Work Phone: [facility] Work Phone: Start: 10-29-2022 End: 10-29-2022 Patient encounter procedure MD Hudson Castañeda Work Phone: [facility] [address] Work Phone: Start: 10-25-2022 End: 10-25-2022 Patient encounter procedure MD Hudson Castañeda Work Phone: [facility] Start: 07-15-2022 End: 07-16-[address] TAMERA RANDALL Facility:[facility] Start: 05-20-2022 End: 05-20-2022 ambulatory Gonsalo You Other [facility] Other Start: 05-20-2022 Telephone encounter Gonsalo You [facility] Start: 04-25-2022 End: 04-25-2022 ambulatory MD Hudson Castañeda Work Phone: [facility] Work Phone: Start: 04-25-2022 End: 04-25-2022 Patient encounter procedure MD Hudson Castañeda Work Phone: [facility] [address] Start: 02-26-2022 End: 02-26-[address] HUDSON CASTAÑEDA Facility:[facility] Start: 02-11-2022 End: 02-12-[address] HUDSON CASTAÑEDA Facility:[facility] Start: 01-31-2022 End: 01-31-2022 Admission to same day surgery center MD Hudson Castañeda Work Phone: [facility] Start: 01-29-2022 End: 01-29-2022 Patient encounter procedure MD Hudson Castañeda Work Phone: [facility] Start: 01-08-2022 End: 01-08-2022 ambulatory Jordan Gutierrez Other [facility] Other Start: 01-08-2022 Telephone encounter Jordan Gutierrez FP [facility] [employer] Start: 12-10-2021 End: 12-10-2021 Patient encounter procedure MD Hudson Castañeda Work Phone: [facility] Start: 11-29-2021 End: 11-29-2021 ambulatory Gonsalo You Other [facility] Other Start: 11-29-2021 Office outpatient visit 15 minutes Gonsalo You [facility] Jose Luis Start: 11-21-2021 End: 11-22-2021 ambulatory GONSALO YOU Facility: Start: 07-28-2020 End: 07-28-2020 Patient encounter procedure Hudson Castañeda [facility] Start: 07-05-2020 End: 07-05-2020 Patient encounter procedure Hudson Castañeda -[facility] [address] Start: 06-18-2018 End: 06-19-2018 Patient encounter procedure Juan Shirley Facility:[facility] Procedures Date Procedure Procedure Detail Performing Clinician Start: 11-03-2023 Follow-up visit Follow-up PRICILLA PA Start: 01-08-2023 Screening mammograph y of bilateral breasts MD Hudson Castañeda Work Phone: Start: 10-29-2022 X-ray of left knee MD Charity Castañeda Work Phone: Start: 01-31-2022 Screening colonoscopy M Sridhar Castañeda Work Phone: Start: 12-10-2021 Screening mammograph y of bilateral breasts MD Hudson Castañeda Work Phone: Start: 07-28-2020 Dual energy X-ray ph oton absorptiometry Husdon Castañeda Start: 07-28-2020 Screening mammography Chairty Castañeda SARS Antigen (LFIA) MD Travis Castañeda Work Phone: Plan of Treatment Date Care Activity Detail Author Start: 01-31-2022 [facility] Renal function 2000 panel - Serum or Plasma [facility] Immunizations Immunization Date Immunization Notes Care Provider Fa cilisiobhan 04-21-2021 COVID-19 mRNADaryn (Pfizer) MD Hudson Castañeda Work Phone: [facility] 08-26-2020 COVID-Daryn Goldman (Pfizer) MD Hudson Castañeda Work Phone: [facility] 08-05-2020 COVID-19 Daryn Tracey (Pfizer) MD Hudson Castañeda Work Phone: [facility] Payers Date Payer Category Payer Self-pay [id number] 2015 Medicare [id number] 2013 Unknown [id number] 1959 Medicare [id number] 1959 Unknown [id number] 1950 Unknown [id number] 2.16.84 0.1.967014.3.579.2.727 1950 Unknown [id number] 2.16.84 0.1.378556.3.579.2.593 1950 Unknown [id number] 2.16.84 0.1.572766.3.579.2.593 1950 Unknown [id number] 2.16.84 0.1.354750.3.579.2.593 1950 Unknown [id number] 2.16.84 0.1.318656.3.579.2.593 1950 Unknown [id number] 2.16.8 40.1.634953.3.579.2.1286 1950 Unknown [id number] 2.16.8 40.1.934102.3.579.2.1286 1950 Unknown [id number] 2.16.84 0.1.629486.3.579.2.1259 1950 Unknown [id number] 2.16.84 0.1.800215.3.579.2.1259 1950 Unknown [id number] 2.16.84 0.1.844064.3.579.2.1259 1950 Unknown [id number] 2.16.84 0.1.309413.3.579.2.1259 1950 Unknown [id number] 2.16.8 40.1.831149.3.579.2.1286 1950 Unknown [id number] 2.16.8 40.1.879328.3.579.2.1286 Unknown [id number] 2.16.8 40.1.023960.3.579.2.531 Unknown [id number] 2.16.8 40.1.400652.3.579.2.531 Unknown [id number] 2.16.8 40.1.260230.3.579.2.531 Unknown [id number] 2.16.8 40.1.519799.3.579.2.531 Social History Date Type Detail Facility Tobacco smoking status [facility] Unknown if ever smoked [facility] Start: 1950 Sex Assigned At Female F [facility] Sex Assigned At Sex Assigned At Bir th [facility] Other Start: 01-31-2022 End: 11-13-2023 Tobacco smoking status NHIS Ex-smoker (finding) [facility] Goals Date Patient Goal Desired Activity [...] within the goal. Will check Iron studies. [facility] Other 01-13-2023 NoteHISTORY: Knee pain TECHNIQUE: Duplex [...] and signed by Juan Wan on 07/19/2022 [facility] note* Encounter Date Diagnosis Assessment Notes Treatment Notes Treatment Clinical Notes Jan, Screening for colon cancer (ICD-10 - Z12.11) [facility] Other 05-26-2022 Evaluation note* Encounter Date Diagnosis [...] Colonoscopy . Advised her to schedule it [facility] Other 10-28-2021 NoteHNO ID: [id number] Author: Jose G Wells MD Service: Vascular Surgery Author Type: Physician Type: Progress Notes Filed: 05/07/2021 7:30 AM Note Text: NAME: ZEYNEP ABBASI [facility] NO: [id number] DATE OF SERVICE: 05/03/2021 DATE OF : [...] She has had an ultrasound done at [facility] that was done in February which [...] Jose G Wells M.D. SPL/089 Audio #: [id number] Date Dictated: 04/19/2021 23:17:18 Date Typed: 05/03/2021 14:30:58 Date Revised: 05/03/2021 16:03:18[facility]10-28-2021 NoteHNO ID: [id number] Author: Jose G Wells MD Service: ? Author Type: Physician Type: Progress Notes Filed: 05/03/2021 11:53 AM Note Text: Here for f/u of unilateral renal artery stenosis with well-controlled hypertension Heart , Vascular and Thoracic Brush DEPARTMENT OF VASCULAR SURGERY OUTPATIENT VISIT DATE [...] TIME OF SERVICE: 11:20 AM [facility] [place] noteNo assessment information availableK[facility] Work Phone: Evaluation noteNo InformationNort Global [employer] Other Evaluation note* Diagnosis Onset Date Resolution Status Chronic hyponatremia acute Hypercholesterolemia acute Renal artery stenosis acute Renovascular hypertension [place] Rheumatoid arthritis acute Vitamin D deficiency acute [facility] Work Phone: History and physical note Author Jordan Gutierrez [facility] January 31, 2022 8:44am Note Date/Time January 31, 2022 8:44 am [facility] [address] [place] [address] Gastroenterology H&P Signed Patient: Zeynep Abbasi MR#: [id number] : 1950 Acct:[id number] Age/Sex: 71 / F Adm Date: 2 Loc: Room: Type: [facility] Attending Dr: Jordan Gutierrez MD Copies to: [...] Gutierrez MD Documented By: Jordan Gutierrez MD 01/31/22843 Signed By: <Electronically signed by Jordan Gutierrez MD> 01/31/22843 [facility] Work Phone: Hisbtsd general Narrative - Reported* Type Description Date [...] Hospitalization History SCIATIC RIGHT SIDE PAIN 05/2018 [facility] Other Hisdqkk general Narrative - Reported* Type Description Date [...] Hospitalization History see above Hospitalization History [facility] 2004 Hospitalization History SCIATIC RIGHT SIDE PAIN 05/2018 [facility] Other Summary Purpose Family History No Family [...] section and content) DATE CREATED AUTHOR 06/21/2018 [place] [facility] DATE CREATED AUTHOR AUTHOR'S ORGANIZ ATION 08/11/2021 [facility] DATE CREATED AUTHOR AUTHOR'S ORGANIZ ATION 07/18/2022 [facility] DATE CREATED AUTHOR AUTHOR'S ORGANIZ ATION 07/19/2022 [facility] dical Specialist DATE CREATED AUTHOR AUTHOR'S ORGANIZ ATION 10/28/2023 [facility] DATE CREATED AUTHOR AUTHOR'S ORGANIZ ATION 11/27/2023 [facility] DATE CREATED AUTHOR AUTHOR'S ORGANIZ ATION 01/01/2024 [facility] dical Specialists EPIC DATE CREATED AUTHOR AUTHOR'S ORGANIZ ATION 01/04/2024 [facility] REASON FOR [...] BE BASED ON THE PRIMARY CLINICAL RECORDS. [facility] [employer] [facility]. provides no warranty or guarantee of the accuracy or completeness of information in this document.
== END 2024-07-08 08:16 | disposition home or self-care (01) ==
LOC: CRPH3 07:29
PROVIDERS: PCP Family Medicine; Visit Provider Family Medicine
DX: E78.2 Mixed hyperlipidemia (principal)
CPT/HCPCS: 93798

== ENCOUNTER 2024-11-15 12:02 | Outpatient (OUT) | payer MEDICARE, SELFPAY ==
[2024-11-15 12:41] LABS: Hematocrit 33.9 % (36.0-48.0); Hemoglobin 11.7 g/dL (12.0-16.0); Mean Corpuscular HGB Conc 34.5 g/dL (29.9-35.2); Mean Corpuscular Hemoglobin 30.6 pg (26.7-34.0); Mean Corpuscular Volume 88.7 fL (81.0-99.0); Mean Platelet Volume 9.9 fL (9.5-13.5); Platelet Count 400 10^3/uL (150-450); Red Blood Count 3.82 10^6/uL (4.20-5.40); Red Cell Distribution Width 12.8 % (11.0-15.0); White Blood Count 4.8 10^3/uL (4.0-11.0)
[2024-11-15 12:43] LABS: Creatinine Urine Random <13.00 mg/dL (20.00-300.00); Total Protein Urine Random 13.7 mg/dL (<=11.9)
[2024-11-15 13:11] LABS: Albumin Level 3.8 g/dL (3.4-5.0); BUN Creatinine Ratio 18.6; Calcium 9.2 mg/dL (8.5-10.1); Carbon Dioxide 29.2 mmol/L (21.0-32.0); Chloride 96 mmol/L (98-107); Estimated GFR (African America >60 (>=60 mL/min/1.73m^2); Estimated GFR (Non-African Ame >60 (>=60 mL/min/1.73m^2); Glucose 96 mg/dL (74-106); Magnesium 2.1 mg/dL (1.8-2.4); Phosphorus 4.2 mg/dL (2.6-4.7); Potassium 4.2 mmol/L (3.5-5.1); Sodium 133 mmol/L (136-145)
[2024-11-15 13:49] LABS: Bilirubin Urine NEGATIVE (NEGATIVE); Blood Urine NEGATIVE (NEGATIVE); Clarity Urine CLEAR (CLEAR); Color Urine LT. YELLOW (YELLOW); Glucose Urine UA NEGATIVE (NEGATIVE); Ketones Urine NEGATIVE (NEGATIVE); Leukocyte Esterase Urine NEGATIVE (NEGATIVE); Nitrite Urine NEGATIVE (NEGATIVE); Protein Urine NEGATIVE (NEG/TRACE); Specific Gravity Urine <=1.005 (1.005-1.025); Urobilinogen Urine 0.2 EU/dL (0.2-1.0)
[2024-11-15 14:12] LABS: Bacteria Urine TRACE #/HPF (NONE SEEN); Cast Seen? NONE SEEN #/LPF (NONE SEEN); Crystals Seen? None Seen #/HPF (None Seen); Mucus Urine NONE SEEN (NONE SEEN); RBC Urine 0-2 #/HPF (0-2); Squamous Epithelial Cell Urine RARE #/LPF (NONE/RARE); WBC Urine 0-2 #/HPF (NONE SEEN)
== END 2024-11-15 12:03 | disposition home or self-care (01) ==
LOC: LAB 12:06
PROVIDERS: PCP Family Medicine; Visit Provider Internal Medicine
DX: D64.9 Anemia, unspecified (principal); E87.1 Hypo-osmolality and hyponatremia; I70.1 Atherosclerosis of renal artery; I15.0 Renovascular hypertension; E78.00 Pure hypercholesterolemia, unspecified; E55.9 Vitamin D deficiency, unspecified
CPT/HCPCS: 36415; 80069; 81001; 82306; 82570; 83735; 84156; 85027

== ENCOUNTER 2025-01-08 19:20 | Emergency (ER) | payer MEDICARE, SELFPAY ==
--- OUTSIDE RECORDS SUMMARY | 2025-01-05 09:30 | XMS_ITS | Encounter Summary ---
Author Organization [facility] Address [address] [place] [address] Care Team Providers Care Entry Level Electrician Name Role Phone Hudson Lebron MD Primary Care Provider + [phone] Hudson Lebron MD Unavailable [phone] German Stevens Unavailable Estella Gong DO Unavailable [phone] Maribeth Powers NP Unavailable [phone] Reason for Visit * Reason Comments skin tear Encounter Details Date Type Department Care Team (Late st Contact Info) Description 01/05/2025 9:30 AM EDT Office Visit [facility] [address] [place] [address] Hudson Lebron MD [address] [place] [address] (Fax) Skin tear of forearm without complication, initial encounter Social History Tobacco Use Types Packs/Day Years Used Date Smoking Tobacco: Former Cigarettes 1.5 22.5 0 07/07/1974 - 01/04/1997 Smokeless Tobacco: Never Tobacco Cessation:Counseling Given: Yes Alcohol Use Standard Drinks/Week Comments Not Currently 0 (1 standard drink = 0.6 oz pure alcohol) caffeine intake: 1-2 cups per day; coffee / 2-3 cups per day B1300 Health Literacy Answer Date Recor ded How often do you need to hav e someone help you when you read instructions, pamphlets, or other written material from your doctor or pharmacy? Never 12/30/2023 Humiliation, Afraid, Rape, and Kick questionnair e Answer Date Recorded Within the last year, have y ou been afraid of your partner or ex-partner? No 12/19/2022 Within the last year, have y ou been humiliated or emotionally abused in other ways by your partner or ex-partner? No Within the last year, have y ou been kicked, hit, slapped, or otherwise physically hurt by your partner or ex-partner? No 12/19/2022 Within the last year, have y ou been raped or forced to have any kind of sexual activity by your partner or ex-partner? No 12/19/2022 Social Connection and Isolat ion Panel [NHANES] Answer Date Recorded In a typical week, how many times do you talk on the phone with family, friends, or neighbors? Three times a week 12/30/2023 How often do you get togethe r with friends or relatives? Three times a week 12/30/2023 How often do you attend [facility] or denominational services? More than 4 times per year 12/30/2023 Do you belong to any clubs o r organizations such as samaritan groups, unions, fraternal or athletic groups, or school groups? Yes 12/30/2023 How often do you attend meet ings of the clubs or organizations you belong to? More than 4 times per year 12/30/2023 Are you , , di vorced, , never , or living with a partner? 12/30/2023 AUDIT-C Answer Date Recorded Q1: How often do you have a drink containing alc ohol? Never 12/30/2023 Average Number of Drinks Not on file 024 Frequency of Binge Drinking Not on file 12/06 PHQ-2 Answer Date Recorded Patient Health Questionnaire-2 Score 0 01/05/2025 [facility] [place] of Occupat ional Health - Occupational Stress Questionnaire Answer Date Recorded Do you feel stress - tense, restless, nervous, or anxious, or unable to sleep at night because your mind is troubled all the time - these days? Not at all 12/30/2023 Exercise Vital Sign Answer Date Recorde d On average, how many days pe r week do you engage in moderate to strenuous exercise (like a brisk walk)? 3 days 12/30/2023 On average, how many minutes do you engage in exercise at this level? 30 min 12/30/2023 Hunger Vital Sign Answer Date Recorded Within the past 12 months, y ou worried that your food would run out before you got the money to buy more. Never true 12/30/19 24 Within the past 12 months, t he food you bought just didn't last and you didn't have money to get more. Never true 12/30/2023 PRAPARE - Transportation Answer Date Re corded In the past 12 months, has l ack of transportation kept you from medical appointments or from getting medications? No 12/06 In the past 12 months, has l ack of transportation kept you from meetings, work, or from getting things needed for daily living? No 12/30/2023 Housing Stability Vital Sign Answer Giancarlo e Recorded In the last 12 months, was t here a time when you were not able to pay the mortgage or rent on time? No 12/19/2022 In the last 12 months, how many places have you lived? 1 12/19/2022 In the last 12 months, was t here a time when you did not have a steady place to sleep or slept in a correction (including now)? No 12/19/2022 Housing Stability Vital Sign Answer Giancarlo e Recorded In the last 12 months, was t here a time when you were not able to pay the mortgage or rent on time? No 12/30/2023 In the past 12 months, how m any times have you moved where you were living? 0 12/30/2023 At any time in the past 12 m [facility], were you homeless or living in a correction (including now)? No 12/30/2023 Education Answer Date Recorded What is the highest level of school you have completed or the highest degree you have received? High school graduate 12/09/2022 Comments No Sex and Gender Information Value Date Recorded Sex Assigned at Not on file Legal Sex Female 6:44 PM EDT Gender Identity Female 09/18/2022 6:44 PM EDT Sexual Orientation Not on file Occupation Industry Job Start Date Job End Date retired Not on file Not on file Not on file documented as of this encounter Last Filed Vital Signs Vital Sign Reading Time Taken Comments Blood Pressure - - Pulse - - Temperature - - Respiratory Rate - - Oxygen Saturation - - Inhaled Oxygen Concentration - - Weight 79.4 kg (175 lb) 01/05/2025 9:41 AM EDT Height 175.3 cm (5' 9 ) 01/05/2025 9:41 AM EDT Body Mass Index 25.84 01/05/2025 9:41 AM EDT documented in this encounter Functional Status * Over the past 2 weeks, how often have you been bothered by any of the following problems? Question Answer Date of Assessment Author Little interest or pleasure in doing things Not at all 01/05/2025 9:59 AM EDT Jose [address], LANE Feeling down, depressed, or hopeless Not at all 01/05/2025 9:59 AM EDT Jose October, LANE Patient Health Questionnaire -2 Score 0 01/05/2025 9:59 AM EDT [address] documented as of this encounter Progress Notes * Hudson Lebron MD - 01/05/2025 9:30 AM EDT Images from the original note were not included. Patient ID: Zeynep Abbasi is a 74 y.o. female who presents for: Pt has a skin tear on her left arm that she did yesterday on her husbands bert colin. She cleaned it with soap and water and then sprayed it with antibacterial spray then applied steristrips and covered. She did not apply ointment because she used steristrips. She is not in pain today but stated it hurt yesterday. She is concerned about Tdap, which I do not see one in her chart. Objective On her left, nondominant, dorsal aspect of her forearm she has a large bandage the has some mild blood staining to it. We did gently remove this and she had Steri-Strips underneath that were half not attached. She did have some mild active bleeding. We did remove the Steri-Strips and had her hold the gauze pad over it temporarily. 03/29/2024 11:05 AM 05/20/2024 10:37 AM 05/24/2024 1:35 PM 06/16/2024 11:24 AM 08/11/2024 1:16 PM 10/21/2024 1:36 PM 10/25/2024 9:14 AM Vitals BMI 25.7 kg/m2 25.7 kg/m2 25.75 kg/m2 25.4 kg/m2 25.84 kg/m2 25.84 kg/m2 BSA (m2) 1.96 m2 1.96 m2 1.96 m2 1.95 m2 1.97 m2 1.97 m2 Systolic 128 132 112 136 126 Diastolic 78 68 62 82 66 Heart Rate 70 68 64 69 SpO2 99 % 98 % 98 % Temp 98 °F Height (in) 5' 9 5' 9 5' 9 5' 9 5' 9 Weight (lb) 174 174 174.38 172 175 175 Visit Report Report Report Report Report Report Report Allergies Allergen Reactions Pollen Extract Rosuvastatin myalgia Statins Other Muscle aches Current Outpatient Medications on File Prior to Visit Medication Sig Dispense Refill amLODIPine (Norvasc) 5 MG tablet Take 10 mg by mouth Daily aspirin 81 MG EC tablet Take 81 mg by mouth every 7 (seven) days azelastine (Astelin) 0.1 % nasal spray Administer 1 spray into each nostril in the morning and 1 spray before bedtime. Use in each nostril as directed. 90 mL 1 Black Pepper-Turmeric (Turmeric Curcumin) 5-1000 MG capsule Cetirizine HCl (ZYRTEC ALLERGY PO) cholecalciferol (Vitamin D-3) 100 MCG (4000 UT) capsule Take by mouth in the morning. colchicine 0.6 MG tablet Take 0.6 mg by mouth Daily cyclobenzaprine (Flexeril) 10 MG tablet TAKE 1/2 TO 1 TABLET BY MOUTH EVERYDAY AT BEDTIME 90 tablet1 desonide (DesOwen) 0.05 % cream Apply topically in the morning and before bedtime. esomeprazole (NexIUM) [address] capsule Take 20 mg by mouth in the morning. Take before meals. fluticasone (Flonase) 50 MCG/ACT nasal spray Administer 1 spray into each nostril Daily as needed for rhinitis 48 g 0 gabapentin (Neurontin) 100 MG capsule 1 po daily -bid 180 capsule 1 L-lysine 1000 MG tablet Take by mouth in the morning. lidocaine (Lidoderm) 5 % patch Apply 1 patch topically if needed losartan (Cozaar) 100 MG tablet Take 100 mg by mouth Daily magnesium oxide 500 MG tablet Take by mouth Misc Natural Products (FIBER 7 PO) if needed MULTIPLE VITAMIN IV 1 (one) time each day at the same time naproxen (Naprosyn) 250 MG tablet Take 250 mg by mouth Daily as needed for mild pain polyethylene glycol, PEG, 3350 (MiraLax) 17 GM/SCOOP powder Take 17 g by mouth Daily Probiotic Product (CULTURELLE PROBIOTICS PO) sennosides (Senokot) 8.6 MG tablet Take 1 tablet by mouth Daily zolpidem (Ambien) 10 MG tablet Take 1 tablet (10 mg) by mouth as needed at bedtime for sleep 30 tablet 2 No current facility-administered medications on file prior to visit. 1. Skin tear of forearm without complication, initial encounter Acute problem We placed a Telfa bandage with some bacitracin ointment over the wound. We we placed a couple 4x4s over this. We then use nonstick tape to wrap around her arm. We discussed wound care. I gave her several different options. She can contact me back if she is having any further problems. documented in this encounter Plan of Treatment Upcoming Encounters Date Type Department Care Team (Late st Contact Info) Description 07/10/2026 11:30 AM EST Office Visit [facility] [address] [facility] [address] [place] [id number] José Luis Brennan MD [address] [facility] [address] [place] [address] documented as of this encounter Visit Diagnoses Diagnosis Skin tear of forearm without complication, initial encounter documented in this encounter Care Teams Entry Level Electrician Relationship Specialty Start Date End Date Hudson Lebron MD [address] [facility] [address] [place] [address] PCP - General 12/19/22 Hudson Lebron MD [address] [place] [address] PCP - ACO Reach 09/05/23 Gonsalo Stevens MD [address] [place] [address] [address] [place] [address] Referring Physician Nephrology 11/17/23 Estella Gong DO [address] [place] [address] Referring Physician Neurology 08/11/24 Maribeth Powers NP [address] [place] [address] Nurse Practitioner Neurology 10/21/24 documented as of this encounter
[2025-01-08 19:25] VITALS: BP 150/68; PULSE 108; TEMP 39.6; O2SAT 99; BMI 25.5
--- OUTSIDE RECORDS SUMMARY | 2025-01-08 19:29 | XMS_ITS | Encounter Summary ---
Author Organization [facility] Address [address] [place] [address] Care Team Providers Care Measuring Machine Operator Name Role Phone Hudson Lebron MD Primary Care Provider + [phone] Hudson Lebron MD Unavailable [phone] German Stevens Unavailable Estella Gong DO Unavailable [phone] Maribeth Powers NP Unavailable [phone] Encounter Details Date Type Department Care Team (Late st Contact Info) Description 11/16/2024 Results Follow-Up [facility] [address] [place] [address] Hudson Lebron MD [address] [place] [address] Social History Tobacco Use Types Packs/Day Years Used Date Smoking Tobacco: Former Cigarettes 1.5 22.5 0 07/07/1974 - 01/04/1997 Smokeless Tobacco: Never Alcohol Use Standard Drinks/Week Comments Not Currently [...] week 12/30/2023 How often do you attend chur ch or christianity services? More than 4 times per year 12/30/2023 Do you belong to any clubs o r organizations such as hindu groups, unions, fraternal or athletic groups, or [...] Date Recorded Patient Health Questionnaire-2 Score 0 10/25/2024 [facility] - Occupational Stress [...] place to sleep or slept in a snf (including now)? No 12/19/2022 Housing Stability Vital Sign Answer Giancarlo e Recorded In the last 12 months, was t here a time when you were not able to pay the mortgage or rent on time? No 12/30/2023 In the past 12 months, how m any times have you moved where you were living? 0 12/30/2023 At any time in the past 12 m [facility], were you homeless or living in a snf (including now)? No 12/30/2023 Education Answer Date [...] on file documented as of this encounter Miscellaneous Notes * Telephone Encounter - Hudson Lebron MD - 11/16/2024 9:36 AM EDT Notify her that the urinalysis and the culture were not consistent with the urinary tract infection. documented in this encounter Plan of Treatment Upcoming Encounters Date Type Department Care Team (Late st Contact Info) Description 07/10/2026 11:30 AM EST Office Visit [facility] [address] [place] [address] José Luis Brennan MD [address] [place] [address] documented as of this encounter Visit Diagnoses Not on filedocumented in this encounter Care Teams Measuring Machine Operator Relationship Specialty Start Date End Date Hudson Lebron MD [address] [place] [address] PCP - General 12/19/22 Hudson Lebron MD [address] [place] [address] PCP - ACO Reach 09/05/23 Gonsalo Stevens MD [address] [place] [address] Referring Physician Nephrology 11/17/23 Estella Gong DO [address] [place] [address] Referring Physician Neurology 08/11/24 Maribeth Powers NP [address] [place] [address] Nurse Practitioner Neurology 10/21/24 documented as of this encounter
--- OUTSIDE RECORDS SUMMARY | 2025-01-08 19:29 | XMS_ITS | Encounter Summary ---
Author Organization [facility] Address [address] [place] [address] Care Team Providers Care Liquid Floor And Wall Applier Name Role Phone Hudson Lebron MD Primary Care Provider + [phone] Hudson Lebron MD Unavailable [phone] German Stevens Unavailable Estella Gong DO Unavailable [phone] Maribeth Powers NP Unavailable Encounter Details Date Type Department Care Team (Latest Contact Info) Description 01/05/2025 Travel Social History Tobacco Use Types Packs/Day Years [...] 12/30/2023 How often do you attend chur or latter day services? More than 4 times per year [...] Recorded Patient Health Questionnaire-2 Score 0 01/05/2025 [facility]ational Stress Questionnaire Answer [...] place to sleep or slept in a skilled nursing (including now)? No 12/19/2022 Housing Stability Vital Sign Answer Giancarlo e Recorded In the last 12 months, was t here a time when you were not able to pay the mortgage or rent on time? No 12/30/2023 In the past 12 months, how m any times have you moved where you were living? 0 12/30/2023 At any time in the past 12 m [facility], were you homeless or living in a skilled nursing (including now)? No 12/30/2023 Education Answer Date [...] on file documented as of this encounter Functional Status * Over the past 2 weeks, how often have you been bothered by any of the following problems? Question Answer Date of Assessment Author Little interest or pleasure in doing things Not at all 01/05/2025 9:59 AM Sana Riley MA Feeling down, depressed, or hopeless Not at all 01/05/2025 9:59 AM Sana Riley MA Patient Health Questionnaire -2 Score 0 01/05/2025 9:59 AM EDT Yeakle, Sana, MA documented as of this encounter Plan of Treatment Upcoming Encounters Date Type Department Care Team (Late st Contact Info) Description 07/10/2026 11:30 AM EST Office Visit [facility] [address] [place] [address] José Luis Brennan MD [address] [place] [address] documented as of this encounter Visit Diagnoses Not on filedocumented in this encounter Care Teams Liquid Floor And Wall Applier Relationship Specialty Start Date End Date Hudson Lebron MD [address] [place] [address] PCP - General 12/19/22 Hudson Lebron MD [address] [place] [address] PCP - ACO Reach 09/05/23 Gonsalo Stevens MD [address] [place] [address] Referring Physician Nephrology 11/17/23 Estella Gong DO [address] [place] [address] Referring Physician Neurology 08/11/24 Maribeth Powers NP [address] [place] [address] Nurse Practitioner Neurology 10/21/24 documented as of this encounter
--- OUTSIDE RECORDS SUMMARY | 2025-01-08 19:30 | XMS_ITS | Encounter Summary ---
Author Organization [facility] Address [address] [facility] [place] [address] Care Team Providers Care Supervising Law Enforcement Analyst Name Role Phone Hudson Lebron MD Primary Care Provider + [phone] Hudson Lebron MD Unavailable [phone] German Stevens Unavailable Estella Gong DO Unavailable [phone] Maribeth Powers NP Unavailable [phone] Encounter Details Date Type Department Care Team (Late st Contact Info) Description 06/08/2024 Orders Only [facility] [address] [place] [address] Hudson Lebron MD [address] [place] [address] Social History Tobacco Use Types Packs/Day Years [...] How often do you attend chur or shinto services? More than 4 times per year 12/30/2023 Do you belong to any clubs o r organizations such as episcopalian groups, unions, fraternal or athletic groups, or [...] Date Recorded Patient Health Questionnaire-2 Score 0 03/28/2024 [facility] Occup[facility] ional Health - Occupational Stress [...] any time in the past 12 m [facility], were you homeless or living in [...] on file documented as of this encounter Plan of Treatment Upcoming Encounters Date Type Department Care Team (Late st Contact Info) Description 07/10/2026 11:30 AM EST Office Visit [facility] [address] [place] [address] José Luis Brennan MD [address] [facility] [address] [place], [place] [address] documented as of this encounter Visit Diagnoses Not on filedocumented in this encounter Care Teams Supervising Law Enforcement Analyst Relationship Specialty Start Date End Date Hudson Lebron MD [address] [place] [address] PCP - General 12/19/22 Hudson Lebron MD [address] [place] [address] PCP - ACO Reach 09/05/23 Gonsalo Stevens MD [address] [place] [address] Referring Physician Nephrology 11/17/23 Estella Gong DO [address] [place] [address] Referring Physician Neurology 08/11/24 Maribeth Powers NP [address] [place] [address] Nurse Practitioner Neurology 10/21/24 documented as of this encounter
--- OUTSIDE RECORDS SUMMARY | 2025-01-08 19:30 | XMS_ITS | Encounter Summary ---
Author Organization [facility] Address [address] [place] [address] Care Team Providers Care Spice Blender Name Role Phone Hudson Lebron MD Primary Care Provider [phone] Hudson Lebron MD Unavailable [phone] German Stevens Unavailable Estella Gong DO Unavailable [phone] Maribeth Powers NP Unavailable [phone] Encounter Details Date Type Department Care Team (Late st Contact Info) Description 12/17/2023 Orders Only [facility] [address] [facility] [place] [address] Hudson Lebron MD [address] [facility] [address] [place], [place] [id number] Social History Tobacco Use Types Packs/Day Years Used Date Smoking Tobacco: Former Cigarettes 1.5 22.5 0 07/07/1974 - 01/04/1997 Smokeless Tobacco: Never Alcohol Use Standard Drinks/Week Comments Not Currently 0 (1 standard drink = 0.6 oz pure alcohol) caffeine intake: 1-2 cups per day; coffee / 2-3 cups per day Humiliation, Afraid, Rape, and Kick questionnair e Answer Date Recorded Within the last year, have y ou been afraid of your partner or ex-partner? No 12/19/2022 Within the last year, have y ou been humiliated or emotionally abused in other ways by your partner or ex-partner? No 06 / Within the last year, have y ou [...] the phone with family, friends, or neighbors? More than three times a week 12/19/2022 How often do you get togethe r with friends or relatives? More than three times a week 12/19/2022 How often do you attend chur or adventism services? More than 4 times per year 12/19/2022 Do you belong to any clubs o r organizations such as orthodox groups, unions, fraternal or athletic groups, or school groups? Yes 12/19/2022 How often do you attend meet ings of the clubs or organizations you belong to? More than 4 times per year 12/19/2022 Are you , , di vorced, , never , or living with a partner? 12/19/2022 AUDIT-C Answer Date Recorded Q1: How often do you have a drink containing alc ohol? Monthly or less 11/10/2023 Q2: How many drinks containi ng alcohol do you have on a typical day when you are drinking? 1 or 2 11/10/2023 Q3: How often do you have si x or more drinks on one occasion? Never 11/10/2023 [facility]ational Stress Questionnaire Answer Date Recorded Do you feel stress - tense, restless, nervous, or anxious, or unable to sleep at night because your mind is troubled all the time - these days? Not at all 12/19/2022 Exercise Vital Sign Answer Date Recorde d On average, how many days pe r week do you engage in moderate to strenuous exercise (like a brisk walk)? 5 days 12/19/2022 On average, how many minutes do you engage in exercise at this level? 30 min 12/19/2022 Hunger Vital Sign Answer Date Recorded Within the past 12 months, y ou worried that your food would run out before you got the money to buy more. Never true 12/20/19 23 Within the past 12 months, t he food you bought just didn't last and you didn't have money to get more. Never true 12/19/2022 PRAPARE - Transportation Answer Date Re corded In the past 12 months, has l ack of transportation kept you from medical appointments or from getting medications? No 12/05 In the past 12 months, has l ack of transportation kept you from meetings, work, or from getting things needed for daily living? No 12/19/2022 Housing Stability Vital Sign Answer [...] place to sleep or slept in a intermediate (including now)? No 12/19/2022 Education Answer Date Recorded What is the [...] Office Visit [facility] [address] [facility] 210 [place] [address] José Luis Brennan MD [address] [facility] [address] [place] [address] documented as of this encounter Visit Diagnoses Not on filedocumented in this encounter Care Teams Spice Blender Relationship Specialty Start Date End Date Hudson Lebron MD [address] [address] PCP - General 6/15/23 Hudson Lebron MD [address] [place] [address] PCP - ACO Reach 09/05/23 Gonsalo Stevens MD [address] [place] [address] Referring Physician Nephrology 11/17/23 Estella Gong DO [address] [place] [address] Referring Physician Neurology 08/11/24 Maribeth Powers NP [address] [place] [address] Nurse Practitioner Neurology 10/21/24 documented as of this encounter
--- OUTSIDE RECORDS SUMMARY | 2025-01-08 19:30 | XMS_ITS | Encounter Summary ---
Author Organization [facility] Address [address] [place] [address] Care Team Providers Care Cdl Dedicated Truck Driver Name Role Phone Hudson Lebron MD Unavailable [phone] Hudson Lebron MD Primary Care Provider [phone] Hudson Lebron MD Unavailable [phone] German Stevens Unavailable Estella Gong DO Unavailable [phone] Maribeth Powers NP Unavailable [phone] Encounter Details Date Type Department Care Team (Late st Contact Info) Description 12/17/2022 Orders Only [facility] [address] [facility] [place] [address] Hudson Lebron MD [address] [facility] [address] [place] [address] Social History Tobacco Use Types Packs/Day Years Used Date Smoking Tobacco: Never Smokeless Tobacco: Never Alcohol Use Standard Drinks/Week Comments Never 0 (1 standard drink = 0.6 oz [...] 12/19/2022 How often do you attend chur ch or yazdanism services? More than 4 times per year [...] , or living with a partner? 12/19/2022 [facility] - [facility]ational Stress Questionnaire Answer Date [...] place to sleep or slept in a chcf (including now)? No 12/19/2022 Education Answer Date Recorded What is the highest level of school you have completed or the highest degree you have received? High school graduate 12/09/2022 Comments Unknown Sex and Gender Information Value Date Recorded Sex Assigned at Not on file Legal Sex Female 6:44 PM EDT Gender Identity Female 09/18/2022 6:44 PM EDT Sexual Orientation Not on file Occupation Industry Job Start Date Job End Date retired Not on file Not on file Not on file COVID-19 Exposure Response Date Recorded In the last 10 days, have yo u been in contact with someone who was confirmed or suspected to have Coronavirus/COVID-19? No / Unsure 12/19/2022 11:00 AM EDT documented as of this encounter Plan of Treatment Upcoming Encounters Date Type Department Care Team (Late st Contact Info) Description 07/10/2026 11:30 AM EST Office Visit [facility] [address] [facility] [address] [place] [address] José Luis Brennan MD [address] [facility] [address] [place] [address] documented as of this encounter Procedures Procedure Name Priority Date/Time Associated Diagnosis Comments LIPID PANEL Routine 12/17/2022 2:10 PM EDT COMPREHENSIVE METABOLIC PANEL Routine 12/17/2022 2:10 PM EDT documented in this encounter Results * Comprehensive metabolic panel (12/17/2022 2:10 PM EDT) Blood Venous blood specimen / Unknown Hudson Lebron MD LAB BLOOD ORDERABLES Final R esult * Lipid panel (12/17/2022 2:10 PM EDT) Blood Venous blood specimen / Unknown Hudson Lebron MD LAB BLOOD ORDERABLES Final R esult documented in this encounter Visit Diagnoses Not on filedocumented in this encounter Care Teams Cdl Dedicated Truck Driver Relationship Specialty Start Date End Date Hudson Lebron MD [address] [place] [address] PCP - ACO Reach 11/28/22 07/06/23 Hudson Lebron MD [address] [place] [address] PCP - General 12/19/22 Hudson Lebron MD [address] [place] [address] PCP - ACO Reach 09/05/23 Gonsalo Stevens MD [address] [place] [address] Referring Physician Nephrology 11/17/23 Estella Gong DO [address] [place] [address] Referring Physician Neurology 08/11/24 Maribeth Powers NP [address] [place] [address] Nurse Practitioner Neurology 10/21/24 documented as of this encounter
--- OUTSIDE RECORDS SUMMARY | 2025-01-08 19:30 | XMS_ITS | Encounter Summary ---
Author Organization [facility] Address [address] [place] [address] Care Team Providers Care Burglar Alarm Inspector Name Role Phone Hudson Lebron MD Unavailable [phone] Hudson Lebron MD Primary Care Provider [phone] Hudson Lebron MD Unavailable [phone] German Stevens Unavailable Estella Gong DO Unavailable [phone] Maribeth Powers NP Unavailable [phone] Encounter Details Date Type Department Care Team (Late st Contact Info) Description 05/26/2023 Abstract [facility] [address] [facility] [place] [address] Hudson Lebron MD [address] [address] Social History Tobacco Use Types Packs/Day [...] often do you attend chur ch or mormonism services? More than 4 times per year 12/19/2022 Do you belong to any clubs o r organizations such as yarsanism groups, unions, fraternal or athletic groups, or school groups? Yes 12/19/2022 How often do you attend meet ings of the clubs or organizations you belong to? More than 4 times per year 12/19/2022 Are you , , di vorced, , never , or living with a partner? 12/19/2022 [facility] - Occupational Stress Questionnaire Answer Date [...] place to sleep or slept in a halfway (including now)? No 12/19/2022 Education Answer Date [...] Office Visit [facility] [address] [facility] [address] [place] [address] José Luis Brennan MD [address] [facility] [address] [place] [address] documented as of this encounter Visit Diagnoses Not on filedocumented in this encounter Care Teams Burglar Alarm Inspector Relationship Specialty Start Date End Date Hudson Lebron MD [address] [place] [address] PCP - ACO Reach 11/28/22 07/06/23 Hudson Lebron MD [address] [place] [address] PCP - General 12/19/22 Hudson Lebron MD [address] [place] [address] PCP - ACO Reach 09/05/23 Gonsalo Stevens MD [address] [address] Referring Physician Nephrology 11/17/23 Estella Gong DO [address] [place] [address] Referring Physician Neurology 08/11/24 Maribeth Powers NP [address] [place] [address] Nurse Practitioner Neurology 10/21/24 documented as of this encounter
--- OUTSIDE RECORDS SUMMARY | 2025-01-08 19:30 | XMS_ITS | Encounter Summary ---
Author Organization [facility] Address [address] [facility] [place] [address] Care Team Providers Care Dramatic Critic Name Role Phone Hudson Lebron MD Primary Care Provider [phone] Hudson Lebron MD Unavailable [phone] German Stevens Unavailable Estella Gong DO Unavailable [phone] Maribeth Powers NP Unavailable [phone] Encounter Details Date Type Department Care Team (Late st Contact Info) Description 02/17/2024 Orders Only [facility] [address] [place] [address] Hudson Lebron MD [address] [place] [address] (Fax) Mixed hyperlipidemia (Primary Dx) Social History Tobacco Use Types Packs/Day Years [...] often do you attend chur ch or judaism services? More than 4 times per year [...] of Binge Drinking Not on file 12/06 [facility] Occupat ional Health - [...] in a halfway (including now)? No 12/19/2022 Housing Stability Vital Sign Answer Giancarlo e Recorded In the last 12 months, was t here a time when you were not able to pay the mortgage or rent on time? No 12/30/2023 In the past 12 months, how m any times have you moved where you were living? 0 12/30/2023 At any time in the past 12 m [facility], were you homeless or living in a halfway (including now)? No 12/30/2023 Education Answer Date [...] [address] [place] [address] José Luis Brennan MD [address] [email or web address] [address] [place] [address] documented as of this encounter Visit Diagnoses Diagnosis Mixed hyperlipidemia- Primary Mixed hyperlipidemia documented in this encounter Care Teams Dramatic Critic Relationship Specialty Start Date End Date Hudson Lebron MD [address] [place] [address] PCP - General 12/19/22 Hudson Lebron MD [address] [place] [address] PCP - ACO Reach 09/05/23 Gonsalo Stevens MD [address] [facility] 100 [place] [address] Referring Physician Nephrology 11/17/23 Estella Gong DO [address] [place] [address] Referring Physician Neurology 08/11/24 Maribeth Powers NP [address] [place] [address] Nurse Practitioner Neurology 10/21/24 documented as of this encounter
--- OUTSIDE RECORDS SUMMARY | 2025-01-08 19:30 | XMS_ITS | Encounter Summary ---
Author Organization [facility] Address [address] [place] [address] Care Team Providers Care Information Technology Instructor Name Role Phone Hudson Lebron MD Unavailable [phone] Hudson Lebron MD Primary Care Provider [phone] Hudson Lebron MD Unavailable [phone] German Stevens Unavailable Estella Gong DO Unavailable [phone] Maribeth Powers NP Unavailable [phone] Encounter Details Date Type Department Care Team (Late st Contact Info) Description 04/22/2023 Abstract [facility] S [address] [facility] [place] [address] Maribeth Powers NP Social History Tobacco Use Types Packs/Day Years [...] often do you attend chur ch or religion services? More than 4 times per year 12/19/2022 Do you belong to any clubs o r organizations such as amish groups, unions, fraternal or athletic groups, or school groups? Yes 12/19/2022 How often do you attend meet ings of the clubs or organizations you belong to? More than 4 times per year 12/19/2022 Are you , , di vorced, , never , or living with a partner? 12/19/2022 [facility] Occupat ional Health - Occupational Stress Questionnaire [...] place to sleep or slept in a custodial (including now)? No 12/19/2022 Education Answer Date [...] Office Visit [facility] [address] [place] [address] José Luis Brennan MD [address] [place] [address] documented as of this encounter Visit Diagnoses Not on filedocumented in this encounter Care Teams Information Technology Instructor Relationship Specialty Start Date End Date Hudson Lebron MD [address] [place] [address] PCP - ACO Reach 11/28/22 07/06/23 Hudson Lebron MD [address] [place], [place] [address], [place] [address] PCP - General 12/19/22 Hudson Lebron MD [address] [place], [place] [address], [place] [address] PCP - ACO Reach 09/05/23 Gonsalo Stevens MD [address] [place] [address] [address] [place] [address] Referring Physician Nephrology 11/17/23 Estella Gong DO [address] [place] [address] Referring Physician Neurology 08/11/24 Maribeth Powers NP [address] [place] [address] Nurse Practitioner Neurology 10/21/24 documented as of this encounter
--- OUTSIDE RECORDS SUMMARY | 2025-01-08 19:30 | XMS_ITS | Clinical Summary ---
Author Organization [facility] Address [address] [place] [id number] Care Team Providers Care [employer] Chemist Name Role Phone Hudson Lebron MD Primary Care Provider Allergies No known active allergies Medications esomeprazole 40 mg SolR 40 mg 20 mg once daily. PO Active zolpidem 10 mg Tab Take by mouth at bedtime as needed. Active fluticasone 50 mcg/actuation nasal spray Use 2 Sprays in each nostril once daily. Active multivitamin (MULTIPLE VITAMIN) tablet Take 1 tablet by mouth once daily. Active Lysine 1,000 mg Tab Take by mouth once daily. Active cholecalciferol, vitamin D3, (VITAMIN D3) 4,000 unit Cap Take by mouth once daily. Active atorvastatin (LIPITOR) 20 mg tablet Take 20 mg by mouth once daily. 8 Active fexofenadine (MAXIMINO) 180 mg tablet Take 180 mg by mouth once daily. 8 Active Magnesium Oxide 500 mg tab Take by mouth as directed. Active POTASSIUM-99 ORAL Take by mouth once daily. Active krill oil 500 mg cap Take by mouth once daily. Active losartan (COZAAR) 100 mg tablet Take 100 mg by mouth once daily. Active TURMERIC ORAL Take by mouth. A ctive Lactobacillus acidophilus (PROBIOTIC ORAL) Take by mouth once daily. Active estradiol (ESTRACE) 0.01 % (0.1 mg/gram) vaginal cream Use vaginally one time a week. Active Ascorbate Calcium-Bioflavo noid (JOSE MANUEL C WITH BIOFLAVONOIDS) 500-200 mg tab Take 500 mg by mouth once daily. Active aspirin, enteric coated (ASPIRIN, ENTERIC COATED) 81 mg EC tablet Take 81 mg by mouth two times a week. Active cyclobenzaprine (FLEXERIL) 10 mg tablet Take by mouth twice daily as needed. Active GABAPENTIN ORAL Take 100 mg by mouth as needed. Active Active Problems Problem Noted Date Diagnosed Date Essential hypertension 02/23/2018 Renal artery stenosis 02/23/2018 Mixed hyperlipidemia 02/23/2018 Family History Medical History Relation Comments No Family History Other aneurysm or cl ots disorder Aneurysm No Family History Clotting Disorder No Family History Relation Status Comments Other Social History Tobacco Use Types Packs/Day Years Used Date Smoking Tobacco: Former Cigarettes 1 28 0 02/04/1969 - 02/04/1997 Smokeless Tobacco: Never Alcohol Use Standard Drinks/Week Comments Yes 0 (1 standard drink = 0.6 oz pur e alcohol) Once Or Twice A Month Area Deprivation Index Answer Date Mehrdad rded National Score (1-100), lower number is lower ri sk Not on file 06/14/2020 State Score (1-10), lower number is lower risk N ot on file 06/14/2020 Data from: https://www.neighborhoodatlas.medicine.[facility]/. Last address used for calculation Not on file 06/14/2020 Comments No Sex and Gender Information Value Date Recorded Sex Assigned at Female 05/02/2021 2:44 PM EDT Legal Sex Female 10:15 AM EST Gender Identity Female 05/02/2021 2:44 PM EDT Sexual Orientation Straight 05/02/2021 2: 44 PM EDT Last Filed Vital Signs Vital Sign Reading Time Taken Comments Blood Pressure 182/94 05/03/2021 11:20 AM EDT Pulse 83 05/03/2021 11:20 AM EDT Temperature 36.9 C (98.5 F) 02/23/2018 9:53 AM EDT Respiratory Rate 18 02/23/2018 9:53 AM EDT Oxygen Saturation 100% 02/23/2018 9:53 AM EDT Inhaled Oxygen Concentration - - Weight 75.8 kg (167 lb) 02/23/2018 9:53 AM EDT Height 175.3 cm (5' 9 ) 02/23/2018 9:53 AM EDT Body Mass Index 24.66 02/23/2018 9:53 AM EDT Plan of Treatment Health Maintenance Due Date Last Done Comments Anxiety Screening 1968 Depression Screening 1968 Hepatitis C Screening 1968 DTaP,Tdap,Td Vaccine (1 - Tdap) [address] Colonography 1995 Cologuard (FIT-DNA) 1995 Colonoscopy 1995 Colorectal Cancer Screening 1995 Diabetes Screening 1995 Fecal Occult Blood 1995 Lipid Screening 1995 Sigmoidoscopy 1995 Shingrix Vaccine (1 of 2) 2000 Bone Density Screening 2015 Covid-19 Vaccine (4 - 2023-2 5 season) 2024 04/21/2021, 08/26/2020, 08/05/2020 Advance Directive Discussion 07/07/2024 Influenza Vaccine (#1) 2025 , 05/10/2019, 04/13/2019, Additional history exists RSV Vaccine (1 - 1-dose 75+ series) 2025 Pneumococcal Vaccine: 50+ Completed 2018, 07/19/2017, 07/10/2017, Additional history exists Insurance [facility] Address: [address] [place] [address] MEDICARE MEDICARE RAILROAD Care Teams [employer] Plant Chemist Relationship Specialty Start Date End Date Hudson Lebron MD [address] [place] [address] PCP - General Family Medicine 02/06/18
--- OUTSIDE RECORDS SUMMARY | 2025-01-08 19:30 | XMS_ITS | Encounter Summary ---
Author Organization [facility] Address [address] [place] [address] Care Team Providers Care Bobbin Marker Name Role Phone Hudson Lebron MD Unavailable [phone] Hudson Lebron MD Primary Care Provider [phone] Hudson Lebron MD Unavailable [phone] German Stevens Unavailable Estella Gong DO Unavailable [phone] Maribeth Powers NP Unavailable [phone] Encounter Details Date Type Department Care Team (Late st Contact Info) Description 12/11/2022 Abstract [facility] [address] [facility] [address] [place] [id number] José Luis Brennan MD [address] [facility] [address] [place] [address] Social History Tobacco Use Types Packs/Day Years Used Date Smoking Tobacco: Never Smokeless Tobacco: Never Alcohol Use Standard Drinks/Week Comments Never 0 (1 standard drink = 0.6 oz pure alcohol) caffeine intake: 1-2 cups per day; coffee / 2-3 cups per day Education Answer Date Recorded What is the [...] [address] [place] [id number] José Luis Brennan MD [address] [place] [address] documented as of this encounter Visit Diagnoses Not on filedocumented in this encounter Care Teams Bobbin Marker Relationship Specialty Start Date End Date Hudson Lebron MD [address] [place] [address] PCP - ACO Reach 11/28/22 07/06/23 Hudson Lebron MD [address] [place] [address] PCP - General 12/19/22 Hudson Lebron MD [address] [place] [address] PCP - ACO Reach 09/05/23 Gonsalo Stevens MD [address] [place] [address] Referring Physician Nephrology 11/17/23 Estella Gong DO [address] [place] [address] Referring Physician Neurology 08/11/24 Maribeth Powers NP [address] [place] [address] Nurse Practitioner Neurology 10/21/24 documented as of this encounter
--- OUTSIDE RECORDS SUMMARY | 2025-01-08 19:30 | XMS_ITS | Clinical Summary ---
Author Organization [facility] Address [address] [place] [address] Care Team Providers Care Head Butler Name Role Phone Hudson Lebron MD Primary Care Provider + [phone] Hudson Lebron MD Unavailable [phone] German Stevens Unavailable Estella Gong DO Unavailable [phone] Maribeth Powers NP Unavailable [phone] Allergies Active Allergy Reactions Criticality Noted Date Comments Pollen Extract 02/09/2018 Rosuvastatin 03/29/2024 myalgia Statins Other Low 03/29/2024 Muscle aches Medications Misc Natural Products (FIBER 7 PO) if needed Active lidocaine (Lidoderm) 5 % patch Apply 1 patch topically if needed 2 Active losartan (Cozaar) 100 MG tablet Take 100 mg by mouth Daily 3 Active MULTIPLE VITAMIN IV 1 (one) time each day at the same time Active amLODIPine (Norvasc) 5 MG tablet Take 10 mg by mouth Daily Active desonide (DesOwen) 0.05 % cream Apply topically in the morning and before bedtime. 3 Active esomeprazole (NexIUM) [address] capsule Take 20 mg by mouth in the morning. Take before meals. Active polyethylene glycol, PEG, 3350 (MiraLax) 17 GM/SCOOP powder Take 17 g by mouth Daily Active aspirin 81 MG EC tablet Take 81 mg by mouth every 7 (seven) days Active Cetirizine HCl (ZYRTEC ALLERGY PO) 3 Active cholecalciferol (Vitamin D-3) 100 MCG (4000 UT) capsule Take by mouth in the morning. Active Black Pepper-Turmeric (Turmeric Curcumin) 5-1000 MG capsule 3 Active colchicine 0.6 MG tablet Take 0.6 mg by mouth Daily 3 Active L-lysine 1000 MG tablet Take by mouth in the morning. Active magnesium oxide 500 MG tablet Take by mouth Ac tive Probiotic Product (CULTURELLE PROBIOTICS PO) 3 Active sennosides (Senokot) 8.6 MG tablet Take 1 tablet by mouth Daily Active fluticasone (Flonase) 50 MCG/ACT nasal sprayIndication s:Non-seasonal allergic rhinitis due to pollen Administer 1 spray into each nostril Daily as needed for rhinitis 48 g 4 Active azelastine (Astelin) 0.1 % nasal sprayIndication s:Non-seasonal allergic rhinitis due to pollen Administer 1 spray into each nostril in the morning and 1 spray before bedtime. Use in each nostril as directed. 90 mL 1 4 Active naproxen (Naprosyn) 250 MG tablet Take 250 mg by mouth Daily as needed for mild pain Active gabapentin (Neurontin) 100 MG capsuleIndicati ons:Neck pain 1 po daily -bid 180 capsule 1 4 Active zolpidem (Ambien) 10 MG tabletIndicatio ns:Primary insomnia Take 1 tablet (10 mg) by mouth as needed at bedtime for sleep 30 tablet 2 5 Active cyclobenzaprine (Flexeril) 10 MG tabletIndicatio ns:Low back pain at multiple sites TAKE 1/2 TO 1 TABLET BY MOUTH EVERYDAY AT BEDTIME 90 tablet 1 5 Active Active Problems Problem Noted Date Diagnosed Date Myalgia due to statin 03/29/2024 Atherosclerosis of renal artery 03/29/2024 Overweight (BMI 25.0-29.9) 12/31/2023 Osteoarthritis 11/10/2023 Acquired unequal leg length on right 12/19/2022 Acromioclavicular joint arthritis 12/19/2022 Benign essential HTN 12/19/2022 Cervical arthritis 12/19/2022 CPAP (continuous positive airway pressure) anisa wilder 12/19/2022 Drug-induced constipation 12/19/2022 Dysfunctions associated with sleep stages or arousal from sleep 12/19/2022 Fibrocystic breast changes 12/19/2022 Gastroesophageal reflux disease 12/19/2022 Hallux valgus (acquired), left foot 12/19/2022 Hammer toe 12/19/2022 Hepatomegaly 12/19/2022 Left renal artery stenosis 12/19/2022 Lumbar spondylosis 12/19/2022 Mixed hyperlipidemia 12/19/2022 Non-seasonal allergic rhinitis due to pollen Chronic pain syndrome 12/19/2022 Retrolisthesis of vertebrae 12/19/2022 Rheumatoid arthritis involvi ng multiple sites with positive rheumatoid factor 12/19/2022 Rupture of right rotator cuff 12/19/2022 Sensorineural hearing loss, bilateral 12/19/2022 Spondylosis of cervical fernando on without myelopathy or radiculopathy 12/19/2022 Urge incontinence of urine 12/19/2022 Polypharmacy 07/16/2020 KENNEDY (obstructive sleep apnea) 01/11/2019 Cervical dystonia 02/11/2018 Insomnia 02/11/2018 Acquired spondylolisthesis 10/15/2017 Family history of malignant neoplasm of ovary Resolved Problems Problem Noted Date Diagnosed Date Resolved Date High cholesterol 11/10/2023 12/15/2023 Hypertension 11/10/2023 12/15/2023 Paresthesia of skin 11/10/2023 12/15/19 24 Hypersomnolence 11/10/2023 12/15/2023 Chronic pain 11/10/2023 12/15/2023 Bilateral tinnitus 12/19/2022 Other chronic pain 12/19/2022 Unsteady gait 12/19/2022 12/15/2023 Right knee pain 01/11/2019 03/29/2024 Shoulder pain 01/11/2019 12/15/2023 Sciatica 01/11/2019 12/15/2023 Back pain 07/09/2018 12/15/2023 Myalgia 02/11/2018 12/15/2023 Dizziness 02/11/2018 12/15/2023 Neck pain 02/11/2018 12/15/2023 Encounters Date Type Department Care Team Description 01/05/2025 9:30 AM EDT Office Visit [facility] [address] [facility] [address] [place] [address] Hudson Lebron MD Skin tear of forearm without complication, initial encounter 01/05/2025 Travel 11/16/2024 Results Follow-Up [facility] [address] [facility] [address] [place] [address] Hudson Lebron MD 11/15/2024 Clinisync Result Encounter [facility] External Department Unsolicited Provider, Generic External Data 11/15/2024 Telephone [facility] [address] [facility] [address] [place] [address] Sana Garcia [place] 11/10/2024 Orders Only [facility] [address] [facility] [address] [place] [address] Hudson Lebron MD 11/10/2024 Telephone [facility] [address] [facility] [address] [place] [address] [place] Care Coordination 10/25/2024 9:15 AM EDT Office Visit [facility] [address] [facility] [address] [place] [address] Hudson Lebron MD Acute cystitis with hematuria (Primary Dx); Frequent urination 10/25/2024 Bamboo flowsheet [facility] [address] [facility] [address] [place] [address] Hudson Lebron MD 10/25/2024 Travel 10/21/2024 1:40 PM EDT Office Visit [facility] [address] [place] [address] Maribeth Powers NP Neck pain (Primary Dx); Low back pain at multiple sites; KENNEDY (obstructive sleep apnea); Primary insomnia 10/21/2024 Bamboo flowsheet [facility] [address] [place] [address] Maribeth Powers NP from Last 3 Months Immunizations Immunization Administration Dates Next Due Influenza, High Dose Seasona l, Preservative Free 04/10/2018,04/17/2017 Influenza, High-dose Seasona l, Quadrivalent, Preservative Free 04/21/2021 Influenza, Seasonal, Quadriv alent, Adjuvanted 04/21/2023,04/26/2022 Influenza, injectable, quadr ivalent, preservative free 05/10/2019,05/12/2015 Influenza, trivalent, adjuvanted 05/13/2024 Pneumococcal Conjugate PCV 13 07/07/2019 ,04/06/2018,07/19/2017,07/10,06/18/2017 Pneumococcal Polysaccharide PPSV23 07/09/2018 Family History Medical History Relation Name Comments No Known Problems Daughter Cancer Father Brock Hypertension Father Brock Leukemia Father Brock stomach trouble Mother No Known Problems Sister 1 Cancer Sister 2 Maame Ovarian cancer Sister 2 Maame No Known Problems Son Relation Name Status Comments Daughter Alive 2 daughters Father Brock Mother Sister 1 1 sister Sister 2 Maame Son Alive 1 son Social History Tobacco Use Types Packs/Day Years [...] often do you attend chur ch or episcopalian services? More than 4 times per year 12/30/2023 Do you belong to any clubs o r organizations such as baptism groups, unions, fraternal or athletic groups, or [...] Recorded Patient Health Questionnaire-2 Score 0 01/05/2025 [facility] - Occupational Stress [...] place to sleep or slept in a mcc (including now)? No 12/19/2022 Housing Stability Vital Sign Answer Giancarlo e Recorded In the last 12 months, was t here a time when you were not able to pay the mortgage or rent on time? No 12/30/2023 In the past 12 months, how m any times have you moved where you were living? 0 12/30/2023 At any time in the past 12 m [facility], were you homeless or living in a mcc (including now)? No 12/30/2023 Education Answer Date [...] file Not on file Not on file Last Filed Vital Signs Vital Sign Reading Time Taken Comments Blood Pressure 126/66 10/21/2024 1:36 PM EDT Pulse 69 10/21/2024 1:36 PM EDT Temperature 36.7 C (98 F) 05/20/2024 10:37 AM EST Respiratory Rate 16 11/11/2023 11:56 AM EDT Oxygen Saturation 98% 05/24/2024 1:35 PM EST Inhaled Oxygen Concentration - - Weight 79.4 kg (175 lb) 01/05/2025 9:41 AM EDT Height 175.3 cm (5' 9 ) 01/05/2025 9:41 AM EDT Body Mass Index 25.84 01/05/2025 9:41 AM EDT Plan of Treatment Upcoming Encounters Date Type Department Care Team (Late st Contact Info) Description 07/10/2026 11:30 AM EST Office Visit [facility] [address] [place] [address] Cameron Flores MD [address] [place] [address] Health Maintenance Due Date Last Done Comments CT Colonography 1950 FIT-DNA 1950 FIT 1950 FOBT 1950 Sigmoidoscopy 1950 Mammogram 01/09/2024 01/08/2023, 06/0 12/2021, 07/28/2020, Additional history exists Influenza Vaccine (#1) 2025 , 04/21/2023, 04/26/2022, Additional history exists Medicare Annual Wellness (AWV) 03/29/2025 0 03/29/2024, 07/02/2022, 04/18/2022 Colonoscopy 02/01/2032 01/31/2022, 01/31/2022 Colorectal Cancer Screening 02/01/2032 Pneumococcal Vaccine: 65+ Years Completed 07/07/2019, 07/09/2018, 04/06/2018, Additional history exists Procedures Procedure Name Priority Date/Time Associated Diagnosis Comments TBH VITAMIN D 25 [place] Routine 11/15/2024 1 2:24 PM EDT ALL MAGNESIUM Routine 11/15/2024 12:24 PM EDT ALL RENAL FUNCTION PANEL Routine 11/15/2024 12:24 PM EDT [facility] CBC WITH PLATELET NO DIFFERENTIAL Routine 11/15/2024 12:24 PM EDT URINARY TRACT INFECTION (HTRX) Routine 11/15/2024 12:22 PM EDT Recurrent UTI (urinary tract infection) [facility] URINALYSIS, WITH MICROSCOPIC Routine 11/15/2024 12:15 PM EDT TBH URINE T PROTEIN CREAT RATIO Routine 11/15/2024 12:15 PM EDT POCT URINALYSIS DIPSTICK Routine 11/15/2024 12:12 PM EDT Recurrent UTI (urinary tract infection) POCT URINALYSIS DIPSTICK Routine 10/25/2024 9:23 AM EDT Frequent urination BI MAMMOGRAM SCREENING BILATERAL 01/08/2023 2:58 PM EDT COLONOSCOPY Routine 01/31/2022 12:00 PM EDT from Last 3 Months or Most Recently Relevant to Health Maintenance Results * TBH VITAMIN D 25 [place] (11/15/2024 12:24 PM EDT) VITAMIN D 47.0 ng/mL TB Comment: <20 ng/mL Vit D deficient 20-<30 ng/mL Vit D insufficient 30-100 ng/mL Vit D sufficient >100 ng/mL Potential Toxicity 11/15/2024 12:2 4 PM EDT 11/15/2024 12:28 PM EDT Narrative LISETTENC - 11/15/2024 1:42 PM EDT Generic External Data Provider [facility] F [facility] ([facility] CBC WITH PLATELET NO DIFFERENTIAL (11/15/2024 12:24 PM EDT) TBH WBC 4.8 4.0 - 11.0 10 3/uL TBH TBH RBC 3.82(L) 4.20 - 5.40 10 6/uL TBH TBH HGB 11.7(L) 12.0 - 16.0 g/dL TBH TBH HCT 33.9(L) 36.0 - 48.0 % TBH TBH MCV 88.7 81.0 - 99.0 fL TBH TBH MCH 30.6 26.7 - 34.0 pg TBH TBH MCHC 34.5 29.9 - 35.2 g/dL TBH TBH RDW 12.8 11.0 - 15.0 % TBH TBH PLT 400 150 - 450 10 3/uL TBH TBH MPV 9.9 9.5 - 13.5 fL TB 11/15/2024 12:2 4 PM EDT 11/15/2024 12:28 PM EDT Narrative CLINISYNC - 11/15/2024 12:50 PM EDT Generic External Data Provider CLINISYNC F inal Result Performing Organization Address City/[facility] Co de Phone Number [facility] * (ABNORMAL) ALL RENAL FUNCTION PANEL (11/15/2024 12:24 PM EDT) SODIUM 133(L) 136 - 145 mmol/L TBH POTASSIUM 4.2 3.5 - 5.1 mmol/L TBH CHLORIDE 96(L) 98 - 107 mmol/L TBH CARBON DIOXIDE 29.2 21.0 - 32.0 mmol/L TBH ANION GAP 12.0 TBH GLUCOSE 96 74 - 106 mg/dL TBH BLOOD UREA NITROGEN 13.0 7.0 - 18.0 mg/dL TBH CREATININE 0.70 0.55 - 1.02 mg/dL TBH TBH EGFR-AF TANZANIAN >60 >=60 mL/min/1.7 3m 2 TBH TBH EGFR-NON AF TANZANIAN >60 >=60 mL/min/1.7 3m 2 TBH BUN CREATININE RATIO 18.6 TBH CALCIUM 9.2 8.5 - 10.1 mg/dL TBH PHOSPHORUS 4.2 2.6 - 4.7 mg/dL TBH ALBUMIN LEVEL 3.8 3.4 - 5.0 g/dL TB 11/15/2024 12:2 4 PM EDT 11/15/2024 12:28 PM EDT Narrative CLINISYNC - 11/15/2024 1:24 PM EDT Generic External Data Provider CLINISYNC F inal Result [facility] * ALL MAGNESIUM (11/15/2024 12:24 PM EDT) MAGNESIUM 2.1 1.8 - 2.4 mg/dL TB 11/15/2024 12:2 4 PM EDT 11/15/2024 12:28 PM EDT Narrative CLINISYNC - 11/15/2024 1:24 PM EDT Generic External Data Provider CLINISYNC F inal Result Performing Organization Address City/[facility]/ZIP Co de Phone Number [facility] * URINARY TRACT INFECTION (HTRX) (11/15/2024 12:22 PM EDT) Pathologist [facility] ACINETOBACTER BAUMANII 0.000 19.961 - 24.689 ppm 11/16/2024 8:02 AM EDT [facility] ACINETOBACTER BAUMANII Not Detected 19.961 - 24.689 ppm 11/16/2024 8:02 AM EDT [facility] CITROBACTER FREUNDII 0.000 23.000 - 31.881 ppm 11/16/2024 8:02 AM EDT [facility] CITROBACTER FREUNDII Not Detected 23.000 - 31.881 ppm 11/16/2024 8:02 AM EDT [facility] ENTEROBACTER AEROGENES, CLOACAE 0.000 23.000 - 31.535 ppm 11/16/2024 8:02 AM EDT [facility] ENTEROBACTER AEROGENES, CLOACAE Not Detected 23.000 - 31.535 ppm 11/16/2024 8:02 AM EDT [facility] ENTEROCOCCUS FAECALIS, FAECIUM 0.000 26.000 - 31.575 ppm 11/16/2024 8:02 AM EDT [facility] ENTEROCOCCUS FAECALIS, FAECIUM Not Detected 26.000 - 31.575 ppm 11/16/2024 8:02 AM EDT [facility] ESCHERICHIA COLI 0.000 23.000 - 28.500 ppm 11/16/2024 8:02 AM EDT [facility] ESCHERICHIA COLI Not Detected 23.000 - 28.500 ppm 11/16/2024 8:02 AM EDT [facility] KLEBSIELLA PNEUMONIAE, OXYTOCA 0.000 23.000 - 30.500 ppm 11/16/2024 8:02 AM EDT [facility] KLEBSIELLA PNEUMONIAE, OXYTOCA Not Detected 23.000 - 30.500 ppm 11/16/2024 8:02 AM EDT [facility] MORGANELLA MORGANII 0.000 19.961 - 24.689 ppm 11/16/2024 8:02 AM EDT [facility] MORGANELLA MORGANII Not Detected 19.961 - 24.689 ppm 11/16/2024 8:02 AM EDT [facility] PROTEUS MIRABILIS, VULGARIS 0.000 23.000 - 28.500 ppm 11/16/2024 8:02 AM EDT [facility] PROTEUS MIRABILIS, VULGARIS Not Detected 23.000 - 28.500 ppm 11/16/2024 8:02 AM EDT [facility] PSEUDOMONAS AERUGINOSA 0.000 23.000 - 28.500 ppm 11/16/2024 8:02 AM EDT [facility] PSEUDOMONAS AERUGINOSA Not Detected 23.000 - 28.500 ppm 11/16/2024 8:02 AM EDT [facility] STAPHYLOCOCCUS AUREUS 0.000 26.000 - 30.902 ppm 11/16/2024 8:02 AM EDT [facility] STAPHYLOCOCCUS AUREUS Not Detected 26.000 - 30.902 ppm 11/16/2024 8:02 AM EDT [facility] STREPTOCOCCUS AGALACTIAE (GROUP B STREP) 0.000 26.000 - 32.222 ppm 11/16/2024 8:02 AM EDT [facility] STREPTOCOCCUS AGALACTIAE (GROUP B STREP) Not Detected 26.000 - 32.222 ppm 11/16/2024 8:02 AM EDT [facility] NICHOLE ALBICANS, PARAPSILOSIS, TROPICALIS 0.000 19.961 - 30.770 ppm 11/16/2024 8:02 AM EDT [facility] NICHOLE ALBICANS, PARAPSILOSIS, TROPICALIS Not Detected 19.961 - 30.770 ppm 11/16/2024 8:02 AM EDT [facility] NICHOLE GLABRATA 0.000 23.000 - 32.138 ppm 11/16/2024 8:02 AM EDT [facility] NICHOLE GLABRATA Not Detected 23.000 - 32.138 ppm 11/16/2024 8:02 AM EDT [facility] NICHOLE KRUSEI 0.000 23.000 - 32.271 ppm 11/16/2024 8:02 AM EDT [facility] NICHOLE KRUSEI Not Detected 23.000 - 32.271 ppm 11/16/2024 8:02 AM EDT [facility] SERRATIA MARCESCENS 0.000 23.000 - 31.204 ppm 11/16/2024 8:02 AM EDT [facility] SERRATIA MARCESCENS Not Detected 23.000 - 31.204 ppm 11/16/2024 8:02 AM EDT [facility] STREPTOCOCCUS PYOGENES (GROUP A STREP) 0.000 19.961 - 24.689 ppm 11/16/2024 8:02 AM EDT [facility] STREPTOCOCCUS PYOGENES (GROUP A STREP) Not Detected 19.961 - 24.689 ppm 11/16/2024 8:02 AM EDT [facility] STAPHYLOCOCCUS EPIDERMIDIS, HAEMOLYTICUS, LUGDUNENSIS, SAPROPHYTICUS (URINA 0.000 19.961 - 24.689 ppm 11/16/2024 8:02 AM EDT [facility] STAPHYLOCOCCUS EPIDERMIDIS, HAEMOLYTICUS, LUGDUNENSIS, SAPROPHYTICUS (URINA Not Detected 19.961 - 24.689 ppm 11/16/2024 8:02 AM EDT [facility] STAPHYLOCOCCUS EPIDERMIDIS, HAEMOLYTICUS, LUGDUNENSIS, SAPROPHYTICUS (URINA 0.000 19.961 - 24.689 ppm 11/16/2024 8:02 AM EDT [facility] STAPHYLOCOCCUS EPIDERMIDIS, HAEMOLYTICUS, LUGDUNENSIS, SAPROPHYTICUS (URINA Not Detected 19.961 - 24.689 ppm 11/16/2024 8:02 AM EDT [facility] Urine 11/15/2024 12:2 2 PM EDT 11/16/2024 2:28 AM EDT Hudson Lebron MD LAB BLOOD ORDERABLES Final R esult Performing Organization Address [facility] Co de Phone Number [facility] [address] [place] [place] [address] * (ABNORMAL) TBH URINE T PROTEIN CREAT RATIO (11/15/2024 12:15 PM EDT) TOTAL PROTEIN URINE RANDOM 13.7(H) <=11.9 mg/dL TBH CREATININE URINE RANDOM <13.00(L) 20.00 - 300.00 mg/dL TB 11/15/2024 12:1 5 PM EDT 11/15/2024 12:28 PM EDT Narrative CLINISYNC - 11/15/2024 1:22 PM EDT Generic External Data Provider CLINISYNC F inal Result Performing Organization Address [facility] de Phone Number [facility]IS[facility]NC [facility] * (ABNORMAL) [facility] URINALYSIS, WITH MICROSCOPIC (11/15/2024 12:15 PM EDT) COLOR URINE LT. YELLOW YELLOW TBH CLARITY URINE CLEAR CLEAR TBH SPECIFIC GRAVITY URINE <=1.005(A) 1.005 - 1.025 TBH PH URINE 7.0 5.0 - 9.0 TBH PROTEIN URINE NEGATIVE NEG/TRACE mg/dL TBH GLUCOSE URINE UA NEGATIVE NEGATIVE mg/dL TBH BILIRUBIN URINE NEGATIVE NEGATIVE TBH KETONES URINE NEGATIVE NEGATIVE mg/dL TBH BLOOD URINE NEGATIVE NEGATIVE TBH NITRITE URINE NEGATIVE NEGATIVE TBH UROBILINOGEN URINE 0.2 0.2 - 1.0 EU/dL TBH LEUKOCYTE ESTERASE URINE NEGATIVE NEGATIVE TBH TBH WBC 0-2(A) NONE SEEN #/HPF TBH TBH RBC 0-2 0 - 2 #/HPF TBH BACTERIA URINE TRACE(A) NONE SEEN #/HPF TBH MUCUS URINE NONE SEEN NONE SEEN TBH SQUAMOUS EPITHELIAL CELL URINE RARE NONE/RARE #/LPF TBH CRYSTALS SEEN? None Seen None Seen #/HPF TBH CAST SEEN? NONE SEEN NONE SEEN #/LPF TBH 11/15/2024 12:1 5 PM EDT 11/15/2024 12:28 PM EDT Narrative CLINISYNC - 11/15/2024 2:12 PM EDT Generic External Data Provider CLINISYNC F inal Result [facility] * POCT urinalysis dipstick manually resulted (11/15/2024 12:12 PM EDT) Only the most recent of2 resultswithin the time period is included. Color, UA Yellow Clarity, UA Clear Glucose, UA Negative Negative - 2000(110) ++++ mg/dL Bilirubin, UA Negative Negative - 4(70) +++ mg/dL Ketones, UA Negative Negative - 160(16) ++++ mg/dL Spec Grav, UA 1.015 1 - 1.03 Blood, UA Negative Negative - 50 Jeo/mcL pH, UA 6.0 5 - 9 Protein, UA Positive Negative - 2000(20) ++++ mg/dL Urobilinogen, UA 0.2 0.2 - 12 mg/dL Leukocytes, UA Negative Negative - 500+++ Isa/mcL Nitrite, UA Negative Negative - Positive Urine 11/15/2024 12:1 2 PM EDT Hudson Lebrno MD POINT OF CARE TEST ENTER/KARSTEN T ORDERABLES Final Result * Bilateral screening mammogram (01/08/2023 2:58 PM EDT) Anatomical Region Laterality Modality Breast Bilateral Mammography 01/08/2023 2:58 PM EDT Impressions 01/09/2023 2:25 PM EDT NO MAMMOGRAPHIC EVIDENCE OF MALIGNANCY. ROUTINE FOLLOW-UP [...] Leidy Dorman M.D.01/08/2023 3:01 PM Dictation Location: [facility] Transcribed By: [facility] 01/08/23 1501 Dictated By: Leidy Dorman MD 01/08/23 1458 Signed By: <Electronically signed by MD Leidy Dorman in [place]> 01/08/23 1501 Narrative 01/09/2023 2:25 PM EDT [address] [address] Mammography Report Signed Patient: Zeynep Abbasi MR#: [id number] : 1950 Acct:[id number] Age/Sex: 72 / F ADM Date: 01/08/23 Loc: [place] Room: Type: [facility] Attending Dr: Cameron Flores MD Copies to: MD Hudson REMY MD Ordering Provider: CAMERON FLORES MD Date of Service: 01/08/23 MM/MM screening [...] interval change. MM/MM screening mammo BI w/CAD Procedure Note Radiology, Radiologist, - 01/09/[address] [address] Mammography Report Signed Patient: Zeynep AbbasiMR#: [id number] : 1950Acct:[id number] Age/Sex: 72 / FADM Date: 01/08/23 Loc: [place] Room:Type: [facility] Attending Dr: Cameron Flores MD Copies to: MD Hudson REMY MD Ordering Provider: CAMERON FLORES MD Date of Service: 01/08/23 MM/MM screening mammo BI w/CAD:screening;Breast cancer screening CLINICAL DATA: Screening for malignancy. BILATERAL SCREENING MAMMOGRAMS - FULL FIELD DIGITAL WITH TOMOSYNTHESIS ANDCAD Tomosynthesis craniocaudal and mediolateral oblique views of both breastswere obtained using low- dose digital technique. Comparison is made to prior studies from 2018 through December 10, 2021. This examination was reviewed with the aid of CAD. There are scattered fibroglandular densities. Benign and vascularcalcifications are present. There are no developing masses, typically malignant calcifications orarchitectural distortion. There has been no significant interval [...] system with a target due date for thenext mammogram. Impression dictated by: Leidy Dorman M.D.01/08/2023 3:01 PM Dictation Location: [facility] Transcribed By: [facility] 01/08/23 1501 Dictated By: Leidy Dorman MD 01/08/23 1458 Signed By: <Electronically signed by MD Leidy Dorman in [place]> 01/08/23 1501 us Cameron Flores MD IMG BI PROCEDURES Final Result * Colonoscopy (01/31/2022 12:00 PM EDT) Anatomical Region Laterality Modality Endoscopy 01/31/2022 12:0 0 PM EDT Narrative 01/31/2022 12:00 PM EDT PERFORMED AT [facility] LOCATION:[id number] Procedure Note CONVERSION, GENERIC - 11/20/2022 PERFORMED AT [facility] LOCATION:[id number] Hudson Lebron MD ENDOSCOPY PROCEDURE ORDERABL ES Final Result from Last 3 Months or Most Recently Relevant to Health Maintenance Insurance [facility] [place] [address] Advance Directives Documents on File Type Date Recorded Patient Pole Classifier Expl anation Power of Tile Sprayer 08/25/2024 3:53 PM 10-08 Living Will Advance Directives and Living Will 08/25/2024 3:49 PM 2022-10-08 Living Wi ll Care Teams Head Butler Relationship Specialty Start Date End Date Hudson Lebron MD [address] [facility] [address] [place] [address] PCP - General 12/19/22 Hudson Lebron MD [address] [address] PCP - ACO Reach 09/05/23 Gonsalo Stevens MD [address] [address] Referring Physician Nephrology 11/17/23 Estella Gong DO [address] [place] [address] Referring Physician Neurology 08/11/24 Maribeth Powers NP [address] [place] [address] Nurse Practitioner Neurology 10/21/24
--- OUTSIDE RECORDS SUMMARY | 2025-01-08 19:30 | XMS_ITS | Encounter Summary ---
Author Organization [facility] Address [address] [place] [address] Care Team Providers Care Frankfurter Inspector Name Role Phone Hudson Lebron MD Primary Care Provider Source Comments In the event this information is protected by the Federal Confidentiality of Alcohol and Drug AbusePatient Records regulations: The Federal rules restrict any use of the information to criminally investigate or prosecute any alcohol or drug abuse patient.[facility] Encounter Details Date Type Department Care Team (Late st Contact Info) Description 02/23/2018 Letters (in) Vascular Surg Dept [address] [place] [address] Jose G Wells MD [address] [place] [address] Social History Tobacco Use Types Packs/Day Years Used Date Smoking Tobacco: Former Cigarettes 1 28 0 02/04/1969 - 02/04/1997 Smokeless Tobacco: Never Alcohol Use Standard Drinks/Week Comments Yes 0 (1 standard drink = 0.6 oz pur e alcohol) Once Or Twice A Month Comments No Sex and Gender Information Value Date Recorded Sex Assigned at Female 05/02/2021 2:44 PM EDT Legal Sex Female 10:15 AM EST Gender Identity Female 05/02/2021 2:44 PM EDT Sexual Orientation Straight 05/02/2021 2: 44 PM EDT documented as of this encounter Miscellaneous Notes * Letter - Jose G Wells - 02/23/2018 12:00 AM EDT Jose G Wells MD [facility] Department of Vascular Surgery [address] [place], [place] [id number] Office: [facility]/ [phone] Appointments: [facility]/ [phone] Fax: [phone] February 23, 2018 Hudson Lebron M.D. [address] [place] [phone] FAX: [phone] NAME: SUJATHA HA [facility]IN[facility] NO: [id number] : 1950 DATE OF SERVICE: 02/23/[address] Lebron: I had the pleasure of seeing Ms. Sujatha Ha for her unilateral renal artery stenosis. She had not had hypertension before now, but she is currently well - controlled on a single dose of Clonidine. The current guidelines would not suggest that this would benefit from any kind of treatment therapy. She has had no cortical loss and right now, I would recommend continued medical management of her hypertension, continue to follow her cholesterol levels to try and keep her LDL of less than 100, and having her see me back with a renal duplex again in one year. Sincerely, Jose G Wells M.D. (Signed electronically) HUMBERTO/ Cc: Sujatha Ha [facility]/089 Audio #: [id number] Date Dictated: 02/23/2018 10:26:00 Date Typed: 02/23/2018 13:27:22 Date Revised: documented in this encounter Plan of Treatment Not on file documented as of this encounter Visit Diagnoses Not on filedocumented in this encounter Care Teams Frankfurter Inspector Relationship Specialty Start Date End Date Hudson Lebron MD [address] [place] [phone] PCP - General Family Medicine 02/06/18 documented as of this encounter
--- OUTSIDE RECORDS SUMMARY | 2025-01-08 19:30 | XMS_ITS | Encounter Summary ---
Author Organization [facility] Address [address] [place] [address] Care Team Providers Care Store Person Name Role Phone Hudson Lebron MD Primary Care Provider + [phone] Hudson Lebron MD Unavailable [phone] German Stevens Unavailable Estella Gong DO Unavailable [phone] Maribeth Powers NP Unavailable [phone] Reason for Visit * Reason Onset Date Comments Med Refill 08/09/2024 Encounter Details Date Type Department Care Team (Late st Contact Info) Description 08/09/2024 Refill [facility] [address] [place] [id number] Hudson Lebron MD [address] [place] [address] (Fax) Non-seasonal allergic rhinitis due to pollen Social History Tobacco Use Types Packs/Day Years [...] week 12/30/2023 How often do you attend [facility] or mandaeism services? More than 4 times per year 12/30/2023 Do you belong to any clubs o r organizations such as taoism groups, unions, fraternal or athletic groups, or [...] Recorded Patient Health Questionnaire-2 Score 0 03/28/2024 [facility] - Occupational Stress [...] place to sleep or slept in a fpc (including now)? No 12/19/2022 Housing Stability Vital Sign Answer Giancarlo e Recorded In the last 12 months, was t here a time when you were not able to pay the mortgage or rent on time? No 12/30/2023 In the past 12 months, how m any times have you moved where you were living? 0 12/30/2023 At any time in the past 12 m [facility], were you homeless or living in a fpc (including now)? No 12/30/2023 Education Answer Date [...] [address] [place] [phone] José Luis Brennan MD [address] [place] [address] documented as of this encounter Visit Diagnoses Diagnosis Non-seasonal allergic rhinitis due to pollen documented in this encounter Care Teams Store Person Relationship Specialty Start Date End Date Hudson Lebron MD [address] [facility] [address] [place] [address] PCP - General 12/19/22 Hudson Lebron MD [address] [address] PCP - ACO Reach 09/05/23 Gonsalo Stevens MD [address] [address] Referring Physician Nephrology 11/17/23 Estella Gong DO [address] [place] [address] Referring Physician Neurology 08/11/24 Maribeth Powers NP [address] [place] [address] Nurse Practitioner Neurology 10/21/24 documented as of this encounter
--- OUTSIDE RECORDS SUMMARY | 2025-01-08 19:30 | XMS_ITS | Encounter Summary ---
Author Organization [facility] Address [address] [place] [address] Care Team Providers Care Housing Quality Standard Inspector Name Role Phone Hudson Lebron MD Unavailable [phone] Hudson Lebron MD Primary Care Provider [phone] Hudson Lebron MD Unavailable [phone] German Stevens Unavailable Estella Gong DO Unavailable [phone] Maribeth Powers NP Unavailable [phone] Encounter Details Date Type Department Care Team (Late st Contact Info) Description 05/26/2023 Abstract [facility] [address] [place] [address] Chepe Wilkinson MD [address] [place], [place] [id number] Social History Tobacco Use Types Packs/Day Years [...] often do you attend chur ch or church services? More than 4 times per year 12/19/2022 Do you belong to any clubs o r organizations such as buddhist groups, unions, fraternal or athletic groups, or school groups? Yes 12/19/2022 How often do you attend meet ings of the clubs or organizations you belong to? More than 4 times per year 12/19/2022 Are you , , di vorced, , never , or living with a partner? 12/19/2022 [facility] - Occupational [facility] Questionnaire Answer Date [...] in a snf (including now)? No 12/19/2022 Education Answer Date [...] Office Visit [facility] [address] [facility] [address] [place] [phone] José Luis Brennan MD [address] [facility] [address] [place] [address] documented as of this encounter Visit Diagnoses Not on filedocumented in this encounter Care Teams Housing Quality Standard Inspector Relationship Specialty Start Date End Date Hudson Lebron MD [address] [place] [address] PCP - ACO Reach 11/28/22 07/06/23 Hudson Lebron MD [address] [place] [address] PCP - General 12/19/22 Hudson Lebron MD 112 [facility] [address] [place] [address] PCP - ACO Reach 09/05/23 Gonsalo Stevens MD 112 [facility] [address] [place] [address] Referring Physician Nephrology 11/17/23 Estella Gong DO [address] [place] [address] Referring Physician Neurology 08/11/24 Maribeth Powers NP [address] [place] [address] Nurse Practitioner Neurology 10/21/24 documented as of this encounter
--- OUTSIDE RECORDS SUMMARY | 2025-01-08 19:30 | XMS_ITS | Encounter Summary ---
Author Organization [facility] [facility] Address [id number] [address] [place] [address] Care Team Providers Care Humane Officer Name Role Phone Hudson Lebron MD Primary Care Provider + [phone] Encounter Details Date Type Department Care Team (Late st Contact Info) Description 12/26/2020 [facility] [address] [place] [address] Serena Leon MA Social History Tobacco Use Types Packs/Day Years Used Date Smoking Tobacco: Former Smokeless Tobacco: Never Childcare Answer Date Recorded Childcare Unknown 12/17/2018 Employment Answer Date Recorded Employment Unknown 12/17/2018 Purpose - Life Answer Date Recorded Purpose and direction in life Unknown Comments No Sex and Gender Information Value Date Recorded Sex Assigned at Female 03/24/2021 10:42 AM EDT Legal Sex Female 12:03 PM EDT Gender Identity Female 03/24/2021 10:42 AM EDT Sexual Orientation Straight 03/24/2021 10 :42 AM EDT documented as of this encounter Plan of Treatment Not on file documented as of this encounter Visit Diagnoses Not on filedocumented in this encounter Care Teams Humane Officer Relationship Specialty Start Date End Date Hudson Lebron MD PCP - General 02/06/18 documented as of this encounter
--- OUTSIDE RECORDS SUMMARY | 2025-01-08 19:30 | XMS_ITS | CCD ---
Author Organization [facility] Care Team Providers Care Ems Helicopter Pilot Name Role Phone Rice, Juan W Unavailable Unavailable Rice, Juan W Unavailable Unavailable Rice, Juan W Unavailable Unavailable HUDSON CASTAÑEDA Unavailable Unavailable Hudson Castañeda Primary Care Provider Sg Randall Attending Provider Kamari Virk Attending Provider You, Gonsalo Unavailable Jordan Gutierrez Unavailable MD Hudson Castañeda Primary Care Provider MD Kamari Virk Attending Provider Unavailabl MD José Luis Brown Referring Provider [phone] MD Jordan Gutierrez Attending Provider MD Hudson Castañeda Primary Care Provider [phone] MD Sg Randall Attending Provider [phone] TONIA, DR PIHLIP Admitting Unavailable TONIA, DR PHILIP Attending Unavailable HEMEABELARDO, DR MERRITT Primary Care Unavailable TONIA, DR PHILIP Consulting Unavailable YOU, GONSALO Admitting Unavailable YOU, GONSALO Attending Unavailable HEMEYER, DR MERRITT Primary Care Unavailable YOU, GONSALO Consulting Unavailable MADDY, DR MERRITT Admitting Unavailable CONYER, DR MERRITT Attending Unavailable CONYER, DR MERRITT Primary Care Unavailable CONYER, DR MERRITT Consulting Unavailable CONYER, DR MERRITT Admitting Unavailable CONYER, DR MERRITT Attending Unavailable MADDY, DR MERRITT Primary Care Unavailable MADDY, DR MERRITT Consulting Unavailable MD Hudson Castañeda Primary Care Provider MD Sg Randall Attending Provider [phone] CHANTEL Stafford Attending Provider MD José Luis Flores Attending Provider MD Hudson Castañeda Primary Care Provider MD Tamera Randall Attending Provider [phone] MD Hudson Castañeda Primary Care Provider MD Tamera Randall Attending Provider [phone] PRICILLA LOBATO Attending Unavailable HUDSON CASTAÑEDA Referring Unavailable MADDY, HUDSON Sales Primary Care Unavailable DEB LÓPEZ Attending Unavailable HUDSON CASTAÑEDA Referring Unavailable HUDSON CASTAÑEDA Primary Care Unavailable MD Hudson Castañeda Primary Care Provider Self, Referral Attending Provider Unavailable Hudson Castañeda MD Primary Care Provider Hudson Castañeda MD Unavailable [phone] Gonsalo Orta MD Unavailable MD Tamera Randall Attending Provider [phone] Hudson Castañeda MD Primary Care Provider Hudson Castañeda MD Unavailable PRICILLA LOBATO Referring Unavailable HEMEABELARDO, HUDSON Sales Primary Care Unavailable PRICILLA LOBATO Attending Unavailable PRICILLA LOBATO Referring Unavailable MADDY, HUDSON Sales Primary Care Unavailable DEB LÓPEZ Attending Unavailable DEB LÓPEZ G Referring Unavailable MADDY, HUDSON Sales Primary Care Unavailable Hudson Castañeda MD Primary Care Provider [phone] Hudson Castañeda MD Unavailable Olive Gong DO Unavailable Hudson Castañeda MD Primary Care Provider [phone] Gonsalo Orta MD Unavailable Priya DIALLO, Maribeth Unavailable [phone] Kyra Gomes APRN Attending Provider [phone] Gonsalo Orta MD Unavailable NO FAMILY, PHYSICIAN Primary Care Provider Unava ilable Maddy DOMÍNGUEZ, Hudson Sales Primary Care Provider Kyra Gomes APRN Attending Provider [phone] You DOMÍNGUEZ, Gonsalo Attending Provider Tonia DOMÍNGUEZ, Tamera Attending Provider Priya SALES ENGINEER [employer], Maribeth Unavailable Kyra Gomes Admitting Unavailable NO FAMILY, PHYSICIAN Primary Care Unavailable Kyra Gomes Attending Unavailable Maddy, Edricarda Sales Primary Care Unavailable Tonia, Tamera Attending Unavailable Tonia, Tamera Admitting Unavailable Hemeyer, Edward J Primary Care Unavailable Self, Referral Attending Unavailable Self, Referral Admitting Unavailable Hemeyer, Edward J Primary Care Unavailable Tonia, Tamera Attending Unavailable Tonia, Tamera Admitting Unavailable BELTRAN, OLIVE Attending Unavailable OLIVE GONG Referring Unavailable MARIBETH POWERS Attending Unavailable BELTRAN, OILVE Attending Unavailable HEMEYER, EDRICARDA Sales Attending Unavailable HEMEYER, EDWARD J Attending Unavailable HEMEYER, EDRICARDA J Attending Unavailable HEMEYER, HUDSON Sales Attending Unavailable PRIYA, MARIBETH Attending Unavailable JOSÉ LUIS FLORES Attending Unavailable Unavailable Unavailable Unavailable Allergies Allergy Classification Reported Allergen(s) Allergy Type Date of Onset Reaction(s) Facility (1 source) No Known Medication Allergies; Translations: [No Known Medication Allergies] Propensity to adverse reactions (disorder) [facility] Repository (6 sources) Ibuprofen Drug Allergy 11-26-19 25 due to kidneys [facility] (5 sources) NSAIDs Propensity to adverse reactions due to kidneys [facility] Other (4 sources) Pollen; Translations: [POLLEN EXTRACTS] Propensity to adverse reactions to drug (disorder) 02-10-20 18 [facility] Repository (20 sources) HMG-CoA reductase inhibitor Drug Intolerance 03-29-20 24 Other [facility] (20 sources) Pollen Propensity to adverse reactions 02-10-20 18 [facility] (20 sources) Rosuvastatin calcium Propensity to adverse reactions 03-29-20 24 [facility] Work Phone: (2 sources) NSAIDS (Non-Steroidal Anti-Inflamma; Translations: [NSAIDS (Non-Steroidal Anti-Inflamma] Allergy to substance 11-26-19 due to kidneys [facility] (1 source) Ibuprofen Drug Allergy 11-26-19 [facility] Repository Medications Current Medications Medication Drug Class(es) Dates Sig (Normalized) Sig (Original) amLODIPine 10 mg oral tablet (20 sources) Dihydropyridine Calcium Channel Ariela Start: 11-07-2024 take 1 tablet by mouth once daily Start: 10-28-2024 End: 11-07-2024 take 1 tablet by mouth once daily Amlodipine 10 mg tablet Discontinued 0 .ROUTE .COMPLEX October 28, 2024 8:56am November 07, 2024 12:07pm TAKE 1 TABLET BY MOUTH DAILY Start: 05-11-2024 End: 10-28-2024 take 1 tablet by mouth once daily Amlodipine 10 mg tablet Discontinued 10 MG PO Daily May 11, 2024 6:31pm October 28, 2024 8:59am Start: 11-13-2023 End: 05-11-2024 take 2 tablets by mouth once daily Amlodipine 5 mg tablet Discontinued 10 MG PO Daily November 13, 2023 11:56am May 11, 2024 6:25pm Start: 11-13-2023 End: 11-13-2023 take 10 mg by mouth once daily Amlodipine Active 10 MG PO Daily 180 November 13, 2023 11:56am Start: 02-14-2021 End: 11-13-2023 take 1 tablet by mouth once daily Amlodipine 5 mg tablet Discontinued 5 MG PO Daily November 13, 2023 12:00am November 13, 2023 11:10am Start: 02-14-2021 take 0.5 tablet by m outh once daily as needed amLODIPine Besylate 5 MG 1/2 tablet Orally Once a day ONLY PRN for 90 day(s) Feb, Not-Taking aspirin 81 mg delayed release oral tablet (20 sources) Platelet Aggregation Inhibitor, Nonsteroidal Anti-inflammatory Drug aspirin 81 MG EC tab let Take 81 mg by mouth every 7 (seven) days Active take 1 tablet by mouth two times weekly aspirin 81 MG EC tablet Take 81 mg by mouth 2 (two) times a week Active atorvastatin 20 mg oral tablet (20 sources) HMG-CoA Reductase Inhibitor Start: 12-10-2017 take 1 tablet by mouth once daily azelastine hydrochloride 0.137 mg/actuat metered dose nasal spray (20 sources) Histamine-1 Receptor Antagonist Start: 12-23-2023 End: 03-22-2024 take 1 spray(s) nasal route in the morning azelastine (Astelin) 0.1 % nasal spray Indications: Non-seasonal allergic rhinitis due to pollen Administer 1 spray into each nostril in the morning and 1 spray before bedtime. Use in each nostril as directed. 90 mL 1 12/23/2023 Active Black Pepper-Turmeric (Turmeric Curcumin) 5-1000 MG capsule (20 sources) Start: 01-04-2023 Black Pepper-Turmeric (Turmeric Curcumin) 5-1000 MG capsule 01/04/2023 Active cefuroxime 500 mg oral tablet (7 sources) Cephalosporin Antibacterial Start: 10-25-2024 End: 11-01-2024 take 1 tablet by mouth in the morning cefuroxime (Ceftin) 500 MG tablet Indications: Acute cystitis with hematuria Take 1 tablet (500 mg) by mouth in the morning and 1 tablet (500 mg) before bedtime. Do all this for 7 days. 14 tablet 10/25/2024 11/01/2024 Active Start: 05-20-2024 End: 05-27-2024 take 1 tablet by mouth in the morning cefuroxime (Ceftin) 500 MG tablet Indications: Bronchitis Take 1 tablet (500 mg) by mouth in the morning and 1 tablet (500 mg) before bedtime. Do all this for 7 days. 14 tablet 05/20/2024 05/27/2024 cetirizine hydrochloride 10 mg oral tablet (20 sources) Histamine-1 Receptor Antagonist Start: 11-13-2023 take 1 tablet by mouth once daily as needed Start: 04-06-2023 Cetirizine HCl (ZYRTEC ALLERGY PO) 04/06/2023 Active cholecalciferol 0.05 mg oral capsule (20 sources) Vitamin D Start: 01-31-2022 take 1 capsule by mo uth once daily cholecalciferol (Vitamin D-3) 100 MCG (4000 UT) capsule Take by mouth in the morning. Active cholecalciferol (Vitamin D-3) 100 MCG (4000 UT) capsule Take by mouth Daily Active cloNIDine hydrochloride 0.1 mg oral tablet (2 sources) Central alpha-2 Adrenergic Agonist Start: 01-01-2018 take 1 tablet by mouth once daily cloNIDine (CATAPRES) 0.1 mg tablet TAKE 1 TAB BY MOUTH 2X'S A DAY *MAY USE 1 EXTRA TAB DAILY FOR B/P SYSTOLIC > 180 OR DIASTOLIC > 100* 1 01/01/2018 Active colchicine 0.6 mg oral tablet (20 sources) Start: 05-06-2023 take 1 tablet by mouth once daily colchicine 0.6 MG tablet Take 0.6 mg by mouth Daily 05/06/2023 Active cyclobenzaprine hydrochloride 10 mg oral tablet (20 sources) Muscle Relaxant Start: 07-22-2024 End: 10-21-2024 take 0.5-1 tablets by mouth once daily at bedtime cyclobenzaprine (Flexeril) 10 MG tablet Indications: Low back pain at multiple sites TAKE 1/2 TO 1 TABLET BY MOUTH EVERYDAY AT BEDTIME 90 tablet 1 10/21/2024 Active Start: 04-26-2024 take 0.5-1 tablets b y mouth at bedtime cyclobenzaprine (Flexeril) 10 MG tablet Indications: Low back pain at multiple sites Take 0.5-1 tablets (5-10 mg) by mouth at bedtime 30 tablet 2 04/26/2024 Active Start: 01-19-2024 End: 04-18-2024 take 0.5-1 tablets by mouth at bedtime cyclobenzaprine (Flexeril) 10 MG tablet Indications: Low back pain at multiple sites Take 0.5-1 tablets (5-10 mg) by mouth at bedtime 30 tablet 2 01/19/2024 04/18/2024 Active Start: 01-31-2022 End: 11-25-2024 take 1 tablet by mouth three times daily as needed Cyclobenzaprine 5 mg Tablet Discontinued 5 MG PO Three times daily as needed for RA January 31, 2022 12:00am November 25, 2024 11:36am desonide 0.5 mg/ml topical cream (20 sources) Corticosteroid Start: 08-07-2022 desonide (DesOwen) 0.05 % cream Apply topically in the morning and before bedtime. 08/07/2022 Active esomeprazole 20 mg delayed release oral capsule (20 sources) Proton Pump Inhibitor Start: 01-31-2022 take 1 capsule by mouth once daily fluticasone propionate 0.05 mg/actuat metered dose nasal spray (20 sources) Corticosteroid Start: 12-23-2023 End: 06-20-2024 take 1 spray(s) nasal route once daily as needed for rhinitis fluticasone (Flonase) 50 MCG/ACT nasal spray Indications: Non-seasonal allergic rhinitis due to pollen Administer 1 spray into each nostril Daily as needed for rhinitis 48 g 12/23/2023 Active Start: 11-13-2023 Start: 11-13-2023 Fluticasone Pr opionate Active 2 INH INHALATION Twice daily November 13, 2023 12:00am Start: 01-31-2022 End: 11-07-2024 Fluticasone Propionate 50 mcg/actuation Blister With Device Discontinued 1 INH INHALATION Daily January 31, 2022 12:00am November 07, 2024 12:08pm Start: 12-04-2017 take 1 spray(s) nasa l route once daily fluticasone (FLONASE) 50 mcg/actuation nasal spray SPRAY 1 SPRAY INTO EACH NOSTRIL EVERY DAY 1 12/04/2017 Active take 2 spray(s) nasa l route once daily Fluticasone Propionate 2 SPRAYS Nasally daily Active Fluticasone Propionate 50 mcg/actuation blister with device (3 sources) Start: 11-13-2023 Fluticasone Propionate 50 mcg/actuation blister with device Active 2 INH INHALATION Twice daily as needed November 13, 2023 12:00am gabapentin 100 mg oral capsule (20 sources) Anti-epilepti c Agent Start: 11-11-2023 End: 03-02-2024 take 1 capsule by mouth once daily gabapentin (Neurontin) 100 MG capsule Indications: Neck pain 1 po daily -bid 180 capsule 1 03/02/2024 Active Start: 01-31-2022 End: 11-13-2023 take 1 capsule by mouth three times daily as needed lactobacillus rhamnosus gg [id number] unt oral capsule (8 sources) Start: 11-13-2023 take 1 capsule by mouth once daily lidocaine 0.05 mg/mg medicated patch (20 sources) Antiarrhythmic, Amide Local Anesthetic Start: 12-22-2021 lidocaine (Lidoderm) 5 % patch Apply 1 patch topically if needed 12/22/2021 Active Start: 11-06-2017 apply 1 dose transde rmal route once lidocaine (LIDODERM) 5 % APPLY 1 PATCH TO AFFECTED AREA FOR 12 HOURS ON,12 HOURS OFF 3 11/06/2017 Active losartan potassium 100 mg oral tablet (20 sources) Angiotensin 2 Receptor Ariela Start: 04-11-2024 End: 11-07-2024 take 1 tablet by mouth once daily Losartan 100 mg tablet Discontinued 0 .ROUTE .COMPLEX April 11, 2024 2:58pm November 07, 2024 12:07pm TAKE 1 TABLET BY MOUTH EVERY DAY Start: 04-11-2024 take 1 tablet by mouth once da efra Losartan Active 0 .ROUTE .COMPLEX April 11, 2024 2:58pm TAKE 1 TABLET BY MOUTH EVERY DAY Start: 01-31-2022 End: 04-11-2024 take 1 tablet by mouth once daily losartan (Cozaar) 10 0 MG tablet Take 100 mg by mouth Daily 10/31/2022 Active Start: 03-19-2018 take 4 tablets by mo uth in the morning losartan (COZAAR) 25 mg tablet Take 4 tablets (100 mg total) by mouth in the morning. 0 03/19/2018 Active lysine 1000 mg oral tablet (20 sources) Start: 01-31-2022 take 1 tablet by mouth once da efra Magnesium (20 sources) Start: 01-31-2022 take 2 tablets by mouth once d aily Start: 01-31-2022 take 2 tablets by mo uth once daily Magnesium 250 mg Tablet Active 500 MG PO Daily January 31, 2022 12:00am Start: 01-31-2022 take 500 mg by mouth once cortez y Magnesium Active 500 MG PO Daily January 31, 2022 12:00am take 1 tablet by mouth once cortez y Magnesium 500 MG 1 tablet with a meal Orally Once a day Active magnesium oxide 500 mg oral tablet (20 sources) magnesium oxide 500 MG tablet Take by mouth Active meclizine hydrochloride 25 mg oral tablet (2 sources) Antiemetic Start: 11-21-2017 take 1 tablet by mouth once daily as needed meclizine (ANTIVERT) 25 mg tablet TAKE 1 TABLET BY MOUTH ONCE A DAY NEEDED 0 11/21/2017 Active melatonin 3 mg oral capsule (8 sources) Start: 11-13-2023 take 1 capsule by mouth once daily at bedtime as needed Start: 11-13-2023 take 1 capsule by mo [facility] once daily at bedtime as needed Melatonin 3 mg capsule Active 3 MG PO Daily at bedtime as needed November 13, 2023 12:00am Melatonin + L-Theanine 3 mg (5 sources) take 1 tablet by jenaro once daily Melatonin + L-Theanine 3 mg 1 tab(s) Orally daily Active Misc Natural Products (FIBER 7 PO) (20 sources) Misc Natural Pro ducts (FIBER 7 PO) if needed Active Multi For Her 50+ - (5 sources) Multi For Her 50 + - Orally Active MULTIPLE VITAMIN IV (20 sources) MULTIPLE VITAMIN IV 1 (one) time each day at the same time Active MULTIPLE VITAMIN IV 1 (one) time each day at the same time. Active Multivitamin preparation (11 sources) Start: 01-31-2022 take 1 tablet by mouth once daily Multivitamin Active 1 TAB PO Daily January 31, 2022 12:00am Multivitamin Tablet (4 sources) Start: 01-31-2022 take 1 tablet by mouth once daily Start: 01-31-2022 take 1 tablet by [facility] once daily Multivitamin Tablet Active 1 TAB PO Daily January 31, 2022 12:00am naproxen 250 mg oral tablet (20 sources) Nonsteroidal Anti-inflammatory Drug take 1 tablet by mouth every twenty-four hours as needed for pain naproxen (Naprosyn) 250 MG tablet Take 250 mg by mouth Daily as needed for mild pain Active polyethylene glycol 3350 23071 mg powder for oral solution (20 sources) Osmotic Laxative polyethylene gl ycol, PEG, 3350 (MiraLax) 17 GM/SCOOP powder Take 17 g by mouth Daily Active potassium 99 mg extended release oral tablet (8 sources) Start: 2023 predniSONE 1 mg oral tablet (2 sources) take 1 tablet by mouth once daily at breakfast predniSONE (DELTASONE) 1 mg tablet Take 1 mg by mouth daily with breakfast. Active Probiotic Product (CULTURELLE PROBIOTICS PO) (20 sources) Start: 2022 Probiotic Product (CULTURELLE PROBIOTICS PO) 01/04/2023 Active rosuvastatin calcium 5 mg oral tablet (6 sources) HMG-CoA Reductase Inhibitor Start: 2023 End: 2023 take 1 tablet by mouth in the evening rosuvastatin (Crestor) 5 MG tablet Indications: Mixed hyperlipidemia (CMS/HCC) Take 1 tablet (5 mg) by mouth in the evening 30 tablet 02/17/2024 03/29/2024 Discontinued (Side effects) sennosides, group home 8.6 mg oral tablet (20 sources) take 1 tablet by mouth once daily sennosides (Senokot) 8.6 MG tablet Take 1 tablet by mouth Daily Active Turmeric extract (8 sources) Start: 2023 take 1 capsule by mouth once daily Start: 11-13-2023 take 1 capsule by mo ut once daily Turmeric 400 mg capsule Active 400 MG PO daily November 13, 2023 12:00am Start: 11-13-2023 take 400 mg by mouth once cortez y Turmeric Active 400 MG PO daily November 13, 2023 12:00am Vitamin D 2000 UNIT (5 sources) take 2 capsules by mouth once daily Vitamin D 2000 UNIT 2 capsules Orally Once a day Active zolpidem tartrate 10 mg oral tablet (20 sources) gamma-Aminobutyric Acid-ergic Agonist Start: 01-19-2018 End: 10-05-2024 zolpidem (Ambien) 10 MG tablet Indications: Primary insomnia Take 1 tablet (10 mg) by mouth as needed at bedtime for sleep 30 tablet 2 10/05/2024 Active Completed/Discontinued Medications Medication Drug Class(es) Dates Sig (Normalized) Sig (Original) bupivacaine hydrochloride 2.5 mg/ml injectable solution (4 sources) Amide Local Anesthetic Start: 08-11-2024 End: 08-11-2024 bupivacaine (Marcaine) 0.25 % injection 4 mL Start: 08-11-2024 End: 08-11-2024 4 mL, Injection, Once PRN Pr ocedure, Starting on Fri08/11/24 at 1321, For 1 dose Calcium Carbonate (3 sources) take 1 tablet by mouth once daily Caltrate 600 1 tablet Orally ONCE A DAY Not-Taking ciprofloxacin 250 mg oral tablet (3 sources) Quinolone Antimicrobial Start: 11-08-19 End: 11-26-19 take 1 tablet by mouth every twelve hours Ciprofloxacin Hcl 250 mg tablet Discontinued 250 MG PO Every 12 hours 10 November 07, 2024 12:00am November 25, 2024 11:34am fexofenadine hydrochloride 180 mg oral tablet (20 sources) Histamine-1 Receptor Antagonist Start: 01-09-20 End: 11-13-19 take 1 tablet by mouth once daily Fexofenadine (Sasha) 180 mg Tablet Discontinued 180 MG PO Daily January 31, 2022 12:00am November 13, 2023 11:02am krill oil (17 sources) Start: 02-01-20 End: 11-13-19 Lyeim-Jb-2-Dha-Epa-Ph ospho-Ast (Krill Oil) 1,507-784-75-80 mg Capsule Discontinued 1 CAP PO Daily January 31, 2022 12:00am November 13, 2023 11:03am Start: 01-31-2022 Pycjh-Zi-6-Dha -Dcw-Fqomdcz-Ips (Krill Oil) 1,311-185-99-80 mg Capsule Active 1 CAP PO Daily January 31, 2022 12:00am krill oil 500 mg capsule Take by mouth. Active 1 ml methylPREDNISolone acetate 40 mg/ml injection (4 sources) Corticosteroid Start: 08-11-2024 End: 08-11-2024 methylPREDNISolone acetate (DEPO-Medrol) injection 80 mg Start: 08-11-2024 End: 08-11-2024 80 mg, Injection, Once PRN P rocedure, Starting on Fri08/11/24 at 1321, For 1 dose Nirmatrelvir&Ritonavir 300/100 (Paxlovid, 300/100,) 20 x 150 MG & 10 x 100MG tablet therapy pack (2 sources) Start: 04-22-2024 End: 05-20-2024 take 3 tablets by mouth in the morning Nirmatrelvir&Ritonavir 300/100 (Paxlovid, 300/100,) 20 x 150 MG & 10 x 100MG tablet therapy pack Indications: Infection caused by 2019 Novel Coronavirus Take 3 tablets by mouth in the morning and 3 tablets before bedtime. 1 each 04/22/2024 05/20/2024 Discontinued (Therapy completed) Triamcinolone (10 sources) Corticosteroid Start: 05-24-2018 KENALOG - 10 mg May, 80 mg Start: 02-19-2018 KENALOG - 10 m g Feb, 80 mg Problems Active Problems Problem Classification Problem Date Documented Date Episodic/Chronic Acquired foot deformities (20 sources) Acquired left hallux valgus; Translations: [Hallux valgus (acquired), left foot] Onset: 3 12-19-2022 Chronic Administrative/social admission (2 sources) Advance directive discussed with patient; Translations: [Other specified counseling] 03-17-2024 Episodic Chronic obstructive pulmonary disease and bronchiectasis (2 sources) Bronchitis; Translations: [Bronchitis, not specified as acute or chronic] 05-20-2024 Episodic Deficiency and other anemia (5 sources) Anemia of renal disease; Translations: [Anemia in chronic kidney disease] Chronic Deficiency and other anemia (2 sources) Anemia in chronic kidney disease Onset: 2 Resolved: 2 Chronic Deficiency and other anemia (9 sources) Anemia; Translations: [Anemia, unspecified] 11-13-2023 Episodic Deficiency and other anemia (1 source) Anemia, unspecified; Translations: [Anemia, unspecified] 11-25-2024 Episodic Disorders of lipid metabolism (20 sources) Dyslipidemia; Translations: [Hyperlipidemia, unspecified] Onset: 2 Resolved: 4 Chronic Esophageal disorders (20 sources) Gastroesophageal reflux disease; Translations: [Gastro-esophageal reflux disease without esophagitis] Onset: 3 12-19-2022 Chronic Essential hypertension (20 sources) Essential (primary) hypertension; Translations: [Benign essential hypertension] Onset: 2 Resolved: 4 Chronic Fluid and electrolyte disorders (16 sources) Hypo-osmolality and hyponatremia; Translations: [Chronic hyponatremia] Onset: 2 Resolved: 2 Episodic Genitourinary symptoms and ill-defined conditions (20 sources) Urge incontinence of urine; Translations: [Urge incontinence] Onset: 3 12-19-2022 Chronic Genitourinary symptoms and ill-defined conditions (3 sources) Increased frequency of urination; Translations: [Frequency of micturition] Onset: 5 10-25-2024 Episodic Hypertension with complications and secondary hypertension (20 sources) Renovascular hypertension; Translations: [Renovascular hypertension] Onset: 2 Resolved: 2 Chronic Miscellaneous mental health disorders (9 sources) Primary insomnia; Translations: [Primary insomnia] 04-10-2024 Chronic Nonmalignant breast conditions (20 sources) Fibrocystic disease of breast; Translations: [Diffuse cystic mastopathy of unspecified breast] Onset: 3 12-19-2022 Chronic Nutritional deficiencies (20 sources) Vitamin D deficiency; Translations: [Vitamin D deficiency, unspecified] Onset: 2 Resolved: 2 Chronic Open wounds of extremities (2 sources) Tear of skin; Translations: [Laceration without foreign body of unspecified forearm, initial encounter] 01-05-2025 Episodic Osteoarthritis (20 sources) Arthritis of acromioclavicular joint; Translations: [Primary osteoarthritis, unspecified shoulder] Onset: 3 12-19-2022 Chronic Other aftercare (1 source) Other terminal gauger (current) drug therapy; 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] Onset: 3 Episodic Other circulatory disease (2 sources) Stricture of artery; 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] Onset: 4 Chronic Other circulatory disease (1 source) Stenosis of celiac artery; 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] 11-03-2023 Chronic Other ear and sense organ disorders (20 sources) Sensorineural hearing loss, bilateral; Translations: [Sensorineural hearing loss, bilateral] Onset: 3 12-19-2022 Chronic Other hereditary and degenerative nervous system conditions (20 sources) Isolated cervical dystonia; Translations: [Spasmodic torticollis] Onset: 8 11-10-2023 Chronic Other nervous system disorders (20 sources) Sleep disorder; Translations: [Circadian rhythm sleep disorder, unspecified type] Onset: 3 12-19-2022 Chronic Other nervous system disorders (20 sources) Chronic pain syndrome; Translations: [Chronic pain syndrome] Onset: 3 12-19-2022 Chronic Other nervous system disorders (20 sources) Chronic pain; Translations: [Other chronic pain] Onset: 3 Resolved: 4 12-15-2023 Chronic Other upper respiratory disease (20 sources) Allergic rhinitis due to pollen; Translations: [Allergic rhinitis due to pollen] Onset: 3 12-19-2022 Chronic Peripheral and visceral atherosclerosis (20 sources) Renal artery stenosis; Translations: [Atherosclerosis of renal artery] Onset: 8 Resolved: 2 Chronic Residual codes; unclassified (20 sources) Dependence on continuous positive airway pressure ventilation; Translations: [Dependence on other enabling machines and devices] Onset: 3 12-19-2022 Chronic Residual codes; unclassified (20 sources) Obstructive sleep apnea syndrome; Translations: [Obstructive sleep apnea (adult) (pediatric)] Onset: 9 11-10-2023 Chronic Rheumatoid arthritis and related disease (20 sources) Rheumatoid arthritis; Translations: [Rheumatoid arthritis, unspecified] Onset: 2 Resolved: 2 Chronic Screening and history of mental health and substance abuse codes (2 sources) Patient encounter status; Translations: [Encounter for screening examination for other mental health and behavioral disorders] 03-17-2024 Episodic Spondylosis; intervertebral disc disorders; other back problems (20 sources) Lumbar spondylosis; Translations: [Spondylosis without myelopathy or radiculopathy, lumbar region] Onset: 3 12-19-2022 Chronic Unclassified (3 sources) CONTACT W/AND (SUSP) EXPOS COVID-19; Translations: [CONTACT W/AND (SUSP) EXPOS COVID-19] Onset: 2 Urinary tract infections (8 sources) Acute cystitis; Translations: [Acute cystitis with hematuria] 10-25-2024 Episodic Past or Other Problems Problem Classification Problem Date Documented Da te Episodic/Chronic Abdominal pain (3 sources) Epigastric pain; Translations: [Epigastric pain] Onset: 11-03-2023 11-03-2023 Episodic Conditions associated with dizziness or vertigo (20 sources) Dizziness; Translations: [Dizziness and giddiness] Onset: 02-11-2018 Resolved: 12-15-2023 12-15-2023 Episodic Other acquired deformities (20 sources) Acquired unequal leg length; Translations: [Unequal limb length (acquired), unspecified site] Onset: 12-19-2022 12-19-2022 Episodic Other acquired deformities (20 sources) Retrolisthesis; Translations: [Spondylolisthesis, site unspecified] Onset: 12-19-2022 12-19-2022 Episodic Other acquired deformities (20 sources) Acquired spondylolisthesis; Translations: [Spondylolisthesis, site unspecified] Onset: 10-15-2017 12-23-2022 Episodic Other aftercare (20 sources) Polypharmacy ; Translations: [Other terminal gauger (current) drug therapy] Onset: 07-16-2020 12-23-2022 Episodic Other connective tissue disease (20 sources) Tear of right rotator cuff; Translations: [Unspecified rotator cuff tear or rupture of right shoulder, not specified as traumatic] Onset: 12-19-2022 12-19-2022 Episodic Other connective tissue disease (20 sources) Myalgia caused by statin; Translations: [Myalgia, unspecified site] Onset: 03-29-2024 03-29-2024 Episodic Other connective tissue disease (20 sources) Muscle pain; Translations: [Myalgia, unspecified site] Onset: 02-11-2018 Resolved: 12-15-2023 12-15-2023 Episodic Other ear and sense organ disorders (20 sources) Bilateral tinnitus; Translations: [Tinnitus, bilateral] Onset: 12-19-2022 Resolved: 11-11-2023 11-11-2023 Episodic Other gastrointestinal disorders (20 sources) Drug-induced constipation; Translations: [Drug induced constipation] Onset: 12-19-2022 12-19-2022 Episodic Other liver diseases (20 sources) Large liver; Translations: [Hepatomegaly, not elsewhere classified] Onset: 12-19-2022 12-19-2022 Episodic Other lower respiratory disease (1 source) Other specified respiratory disorders; Translations: [OTHER SPEC RESPIRATORY DISORDERS] Onset: 02-28-2022 Episodic Other nervous system disorders (20 sources) Abnormal gait; Translations: [Unsteadiness on feet] Onset: 12-19-2022 Resolved: 12-15-2023 12-15-2023 Episodic Other nervous system disorders (20 sources) Paresthesia; Translations: [Paresthesia of skin] Onset: 11-10-2023 Resolved: 12-15-2023 12-15-2023 Episodic Other non-traumatic joint disorders (20 sources) Pain in right knee; Translations: [Pain in joint, lower leg] Onset: 01-11-2019 Resolved: 03-29-2024 03-29-2024 Episodic Other non-traumatic joint disorders (20 sources) Shoulder pain; Translations: [Pain in unspecified shoulder] Onset: 01-11-2019 Resolved: 12-15-2023 12-15-2023 Episodic Other nutritional; endocrine; and metabolic disorders (20 sources) Body mass index 25-29 - overweight; Translations: [Overweight] Onset: 12-31-2023 12-31-2023 Episodic Other screening for suspected conditions (not mental disorders or infectious disease) (7 sources) Encounter for screening for malignant neoplasm of colon; Translations: [Encounter for screening for diabetes mellitus] Onset: 01-08-2022 Resolved: 01-08-2022 Episodic Other upper respiratory disease (1 source) Nasal congestion; Translations: [NASAL CONGESTION] Onset: 02-28-2022 Episodic Residual codes; unclassified (20 sources) Hypersomnia; Translations: [Hypersomnia, unspecified] Onset: 11-10-2023 Resolved: 12-15-2023 12-15-2023 Chronic Residual codes; unclassified (20 sources) Family history of malignant neoplasm of ovary; Translations: [Family history of malignant neoplasm of ovary] Onset: 02-07-2015 12-23-2022 Episodic Residual codes; unclassified (20 sources) Insomnia; Translations: [Insomnia, unspecified] Onset: 02-11-2018 11-10-2023 Episodic Spondylosis; intervertebral disc disorders; other back problems (20 sources) Acute back pain with sciatica; Translations: [Lumbago with sciatica, right side] Onset: 02-11-2018 Resolved: 12-15-2023 11-28-2023 Episodic Unclassified (1 source) CONTACT W/AND (SUSP) EXPOS COVID-19; Translations: [CONTACT W/AND (SUSP) EXPOS COVID-19] Onset: 02-26-2022 Results Test Name Value Interpretation Reference Range Facility Alanine aminotransferase [En zymatic activity/volume] in Serum or PlasmaOrdered By: Tamera Randall on 01-03-2025 ALT [Catalytic activity/Vol] 19 U/L Normal 7-52 [facility] Comment on above: Performed By: #### C MP, CBC #### [facility] [address] [place] [address] [place] Albumin [Mass/volume] in Ser um or Plasma by Bromocresol green (BCG) dye binding methoOrdered By: Tamera Randall on 01-03-2025 Albumin BCG dye [Mass/Vol] 4.5 g/dL 3.5-5.7 [facility] Alkaline phosphatase [Enzyma tic activity/volume] in Serum or PlasmaOrdered By: Tamera Randall on 01-03-2025 ALP [Catalytic activity/Vol] 88 U/L Normal 34-104 [facility] Comment on above: Result Comment: PERF ORMED BY: [place] [address] PATHOLOGIST SPANISH TRANSLATOR VALERIA GRACE M.D. Performed By: #### C MP, CBC #### [address] Aspartate aminotransferase [ Enzymatic activity/volume] in Serum or PlasmaOrdered By: Tamera Randall on 01-03-2025 AST [Catalytic activity/Vol] 21 U/L Normal 13-39 [facility] Comment on above: Performed By: #### C MP, CBC #### [place] [address] [place] Basophils [#/volume] in Bloo d by Automated countOrdered By: Tamera Randall on 01-03-2025 Basophils (Bld) [#/Vol] 0.0 10*3/uL Normal 0.0-0.2 [facility] Comment on above: Result Comment: PERF ORMED BY: [place] [address] PATHOLOGIST SPANISH TRANSLATOR VALERIA GRACE M.D. Performed By: #### C MP, CBC #### [place] [address] [place] Basophils/100 leukocytes in Blood by Automated countOrdered By: Tamera Randall on 01-03-2025 Basophils/100 WBC (Bld) 1.2 % Normal . [facility] Comment on above: Performed By: #### C MP, CBC #### [place] [address] [place] Bilirubin.total [Mass/volume ] in Serum or PlasmaOrdered By: Tamera Randall on 01-03-2025 Bilirubin [Mass/Vol] 0.6 mg/dL Normal 0.3-1.0 [facility] Comment on above: Performed By: #### C MP, CBC #### [facility] [address] Calcium [Mass/volume] in Ser um or PlasmaOrdered By: Tamera Randall on 01-03-2025 Calcium [Mass/Vol] 9.5 mg/dL Normal 8.6-10.3 [facility] Comment on above: Performed By: #### C MP, CBC #### [address] Carbon dioxide, total [Moles /volume] in Serum or PlasmaOrdered By: Tamera Randall on 01-03-2025 CO2 [Moles/Vol] 27.8 mmol/L Normal 21.0-31.0 [facility] Comment on above: Performed By: #### C MP, CBC #### [facility] [address] [place] [address] [place] Chloride [Moles/volume] in S jl or PlasmaOrdered By: Tamera Randall on 01-03-2025 Chloride [Moles/Vol] 97 mmol/L Low 98-107 [facility] Comment on above: Performed By: #### C MP, CBC #### [address] Complete Blood Count Auto Di ffon 01-03-2025 Mean Corpuscular HGB Conc 34.4 g/dL Normal 32.0-35.0 [facility] Comment on above: Performed By: #### C MP, CBC #### [facility] [address] [place] [address] [place] NRBC% 0.1 /100{WBC} Normal 0-0.5 [facility] Comment on above: Performed By: #### C MP, CBC #### [facility] [address] White Blood Count 3.9 [CFU]/mL Normal 3.8-11.6 [facility] Comment on above: Performed By: #### C MP, CBC #### [address] Comprehensive Metabolic Pane canelo 01-03-2025 Albumin [Mass/Vol] 4.5 g/dL Normal 3.5-5.7 [facility] Comment on above: Performed By: #### C MP, CBC #### [place] [address] [place] GFR/1.73 sq M.predicted MDRD (S/P/Bld) [Vol rate/Area] mL/min/{1.73_m2} Normal [facility] Comment on above: Performed By: #### C MP, CBC #### [address] Creatinine [Mass/volume] in Serum or PlasmaOrdered By: Tamera Randall on 01-03-2025 Creatinine [Mass/Vol] 0.67 mg/dL Normal 0.60-1.20 [facility] Comment on above: Performed By: #### C MP, CBC #### [place] [address] [place] Eosinophils [#/volume] in Bl ood by Automated countOrdered By: Tamera Randall on 01-03-2025 Eosinophils (Bld) [#/Vol] 0.1 10*3/uL Normal 0.0-0.45 [facility] Comment on above: Performed By: #### C MP, CBC #### [place] [address] [place] Eosinophils/100 leukocytes i n Blood by Automated countOrdered By: Tamera Randall on 01-03-2025 Eosinophils/100 WBC (Bld) 3.8 % Normal . [facility] Comment on above: Performed By: #### C MP, CBC #### [place] [address] [place] Erythrocyte distribution wid th [Ratio] by Automated countOrdered By: Tamera Randall on 01-03-2025 Erythrocyte distribution width (RBC) [Ratio] 13.6 % Normal 11.9-15.3 [facility] Comment on above: Performed By: #### C MP, CBC #### [facility] [address] Erythrocytes [#/volume] in B lood by Automated countOrdered By: Tamera Randall on 01-03-2025 RBC (Bld) [#/Vol] 3.94 10*6/uL Normal 3.60-5.00 [facility] Comment on above: Performed By: #### C MP, CBC #### [facility] [address] [place] [address] [place] Glucose [Mass/volume] in Ser um or PlasmaOrdered By: Tamera Randall on 01-03-2025 Glucose [Mass/Vol] 96 mg/dL Normal 70-100 [facility] Comment on above: ADA recommended refe rence rangeRandom Glucose Reference Range is dependent on time and content of last meal. Glucose of more than 200 mg/dL in a nonstressed, ambulatory subject supports the diagnosis of Diabetes Mellitus. Result Comment: Outing om Glucose Reference Range is dependent on time and content of last meal. Glucose of more than 200 mg/dL in a nonstressed, ambulatory subject supports the diagnosis of Diabetes Mellitus. ADA recommended reference range Performed By: #### C MP, CBC #### [facility] [address] Hematocrit [Volume Fraction] of Blood by Automated countOrdered By: Tamera Randall on 01-03-2025 Hematocrit (Bld) [Volume fraction] 34.8 % Normal 34.0-46.4 [facility] Comment on above: Performed By: #### C MP, CBC #### [facility] [address] [place] [address] [place] Hemoglobin [Mass/volume] in BloodOrdered By: Tamera Randall on 01-03-2025 Hemoglobin (Bld) [Mass/Vol] 12.0 g/dL Normal 11.8-15.4 [facility] Comment on above: Performed By: #### C MP, CBC #### [facility] [address] [place] [address] [place] Leukocytes [#/volume] correc taylor for nucleated erythrocytes in Blood by Automated counOrdered By: Tamera Randall on 01-03-2025 WBC corrected for nucl RBC Auto (Bld) [#/Vol] 3.9 10*3/uL 3.8-11.6 [facility] Leukocytes [#/volume] in Blo od by Automated countOrdered By: Tamera Randall on 01-03-2025 WBC (Bld) [#/Vol] 3.9 10*3/uL Normal 3.8-11.6 [facility] Comment on above: Performed By: #### C MP, CBC #### [place] [address] [place] Lymphocytes [#/volume] in Bl ood by Automated countOrdered By: Tamera Randall on 01-03-2025 Lymphocytes (Bld) [#/Vol] 1.3 10*3/uL Normal 1.00-4.8 [facility] Comment on above: Performed By: #### C MP, CBC #### [address] Lymphocytes/100 leukocytes i n Blood by Automated countOrdered By: Tamera Randall on 01-03-2025 Lymphocytes/100 WBC (Bld) 32.3 % Normal . [facility] Comment on above: Performed By: #### C MP, CBC #### [address] MCH [Entitic mass] by Automa taylor countOrdered By: Tamera Randall on 01-03-2025 MCH (RBC) [Entitic mass] 30.4 pg Normal 24.7-34.3 [facility] Comment on above: Performed By: #### C MP, CBC #### [address] MCHC Auto (RBC) [Mass/Vol]Or dered By: Tamera Randall on 01-03-2025 MCHC (RBC) [Mass/Vol] 34.4 g/dL 32.0-35.0 [facility] MCV [Entitic volume] by Auto mated countOrdered By: Tamera Randall on 01-03-2025 MCV (RBC) [Entitic vol] 88.2 fL Normal 80-100 [facility] Comment on above: Performed By: #### C MP, CBC #### [place] [address] [place] Monocytes [#/volume] in Bloo d by Automated countOrdered By: Tamera Randall on 01-03-2025 Monocytes (Bld) [#/Vol] 0.4 10*3/uL Normal 0.0-0.8 [facility] Comment on above: Performed By: #### C MP, CBC #### [address] Monocytes/100 leukocytes in Blood by Automated countOrdered By: Tamera Randall on 01-03-2025 Monocytes/100 WBC (Bld) 9.4 % Normal . [facility] Comment on above: Performed By: #### C MP, CBC #### [facility] [address] [place] [address] [place] Neutrophils [#/volume] in Bl ood by Automated countOrdered By: Tamera Randall on 01-03-2025 Neutrophils (Bld) [#/Vol] 2.1 10*3/uL Normal 1.8-7.7 [facility] Comment on above: Performed By: #### C MP, CBC #### [address] Neutrophils/100 leukocytes i n Blood by Automated countOrdered By: Tamera Randall on 01-03-2025 Neutrophils/100 WBC (Bld) 53.3 % Normal . [facility] Comment on above: Performed By: #### C MP, CBC #### [address] No Panel InformationOrdered By: Tamera Randall on 01-03-2025 Estimated GFR (CKD-EPI) > 60.0 mL/Min [facility] Creatinine Clearance (Chem N/A [facility] Nucleated erythrocytes [Pres ence] in Blood by Automated countOrdered By: Tamera Randall on 01-03-2025 Nucleated RBC Auto Ql (Bld) 0.1 /100{WBC} 0-0.5 [facility] Platelet mean volume [Entiti c volume] in Blood by Automated countOrdered By: Tamera Randall on 01-03-2025 Platelet mean volume (Bld) [Entitic vol] 9.2 fL Normal 6.3-10.7 [facility] Comment on above: Performed By: #### C MP, CBC #### [address] Platelets [#/volume] in Bloo d by Automated countOrdered By: Tamera Randall on 01-03-2025 Platelets (Bld) [#/Vol] 277 10*3/uL Normal 150-450 [facility] Comment on above: Performed By: #### C MP, CBC #### [address] Potassium [Moles/volume] in Serum or PlasmaOrdered By: Tamera Randall on 01-03-2025 Potassium [Moles/Vol] 4.3 mmol/L Normal 3.5-5.1 [facility] Comment on above: Performed By: #### C MP, CBC #### [address] Protein [Mass/volume] in Ser um or PlasmaOrdered By: Tamera Randall on 01-03-2025 Protein [Mass/Vol] 7.3 g/dL Normal 6.4-8.9 [facility] Comment on above: Performed By: #### C MP, CBC #### [address] Serum globulin measurement b y calculation (mass/volume)Ordered By: Tamera Randall on 01-03-2025 Globulin (S) [Mass/Vol] 2.8 g/dL Normal [facility] Comment on above: Performed By: #### C MP, CBC #### [address] Serum or plasma albumin/glob ulin mass ratioOrdered By: Tamera Randall on 01-03-2025 Albumin/Globulin [Mass ratio] 1.6 {ratio} Normal [facility] Comment on above: Performed By: #### C MP, CBC #### [facility] [address] Serum or plasma anion gap de terminationOrdered By: Tamera Randall on 01-03-2025 Anion gap [Moles/Vol] 11.5 mmol/L Normal 6.0-15.0 [facility] Comment on above: Performed By: #### C MP, CBC #### [facility] [address] Sodium [Moles/volume] in Ser um or PlasmaOrdered By: Tamera Randall on 01-03-2025 Sodium [Moles/Vol] 132 mmol/L Low 136-145 [facility] Comment on above: Performed By: #### C MP, CBC #### [address] Urea nitrogen [Mass/volume] in Serum or PlasmaOrdered By: Tamera Randall on 01-03-2025 Urea nitrogen [Mass/Vol] 16 mg/dL Normal 7-25 [facility] Comment on above: Performed By: #### C MP, CBC #### [address] Erythrocyte distribution wid th Auto (RBC) [Ratio]on 11-15-2024 Erythrocyte distribution width (RBC) [Ratio] Erythrocyte distribution width [Ratio] by Automated count .0-15.0 [facility] Erythrocyte distribution width (RBC) [Ratio] 12.8 % 11.0-15.0 [facility] Estimated glomerular filtrat ion rate (GFR) non- Americanon 11-15-2024 GFR/1.73 sq M.predicted among non-blacks MDRD (S/P/Bld) [Vol rate/Area] Estimated glomerular filtration rate (GFR) non- >=60 mL/min/1.73m 2 [facility] GFR/1.73 sq M.predicted among non-blacks MDRD (S/P/Bld) [Vol rate/Area] mL/min/{1.73_m2} >=60 mL[facility]73m [facility] NO DI FFERENTIALon 11-15-2024 Erythrocyte distribution width (RBC) [Ratio] 12.8 % 11.0 - 15.0 % [facility] Hematocrit (Bld) [Volume fraction] 33.9 % Low 36.0 - 48.0 % [facility] Hemoglobin (Bld) [Mass/Vol] 11.7 g/dL Low 12.0 - 16.0 g/dL [facility] Interpretation and review of laboratory results Abnormal [facility] MCH (RBC) [Entitic mass] 30.6 pg 26.7 - 34.0 pg [facility] MCHC (RBC) [Mass/Vol] 34.5 g/dL 29.9 - 35.2 g/dL [facility] MCV (RBC) [Entitic vol] 88.7 fL 81.0 - 99.0 fL [facility] Platelet mean volume (Bld) [Entitic vol] 9.9 fL 9.5 - 13.5 fL [facility] TB PLT 400 [facility] TB RBC 3.82 Low [facility] TB WBC 4.8 [facility] Hematocrit Auto (Bld) [Volum e fraction]on 11-15-2024 Hematocrit (Bld) [Volume fraction] Hematocrit [Volume Fraction] of Blood by Automated count Low 36.0-48.0 [facility] Hematocrit (Bld) [Volume fraction] 33.9 % Low 36.0-48.0 [facility] Hemoglobin [Mass/volume] in Bloodon 11-15-2024 Hemoglobin (Bld) [Mass/Vol] Hemoglobin [Mass/volume] in Blood Low 12.0-16.0 [facility] Hemoglobin (Bld) [Mass/Vol] 11.7 g/dL Low 12.0-16.0 [facility] Laboratory - Chemistry and C hemistry - challengeon 11-15-2024 Albumin [Mass/Vol] 3.8 g/dL 3.4-5.0 [facility] Calcium [Mass/Vol] 9.2 mg/dL 8.5-10.1 [facility] Chloride [Moles/Vol] 96 mmol/L Low 98-107 [facility] CO2 [Moles/Vol] 29.2 mmol/L 21.0-32.0 [facility] Creatinine [Mass/Vol] 0.70 mg/dL 0.55-1.02 [facility] GFR/1.73 sq M.predicted MDRD (S/P/Bld) [Vol rate/Area] mL/min/{1.73_m2} >=60 mL/min/1.73m 2 [facility] Glucose [Mass/Vol] 96 mg/dL 74-106 [facility] Magnesium [Mass/Vol] 2.1 mg/dL 1.8-2.4 [facility] Potassium [Moles/Vol] 4.2 mmol/L 3.5-5.1 [facility] Sodium [Moles/Vol] 133 mmol/L Low 136-145 [facility] Urea nitrogen [Mass/Vol] 13.0 mg/dL 7.0-18.0 [facility] Urea nitrogen/Creatinine [Mass ratio] 18.6 mg/mg [facility] Bilirubin Ql (U) Negative NEGATIVE [facility] Glucose (U) [Mass/Vol] Negative NEGATIVE [facility] Ketones Ql (U) Negative NEGATIVE [facility] pH (U) 7.0 [pH] 5.0-9.0 [facility] Specific gravity (U) [Rel density] <=1.005 Abnormal 1.005-1.025 [facility] Urobilinogen Qn (U) 0.2 {Ada'U}/dL 0.2-1.0 [facility] - Specimen inform ationon 11-15-2024 Appearance (U) CLEAR CLEAR [facility] Color (U) LT. YELLOW YELLOW [facility] Laboratory - Urinalysison Leukocyte esterase Test strip Ql (U) Negative NEGATIVE [facility] Mucus Ql (Urine sed) NONE SEEN NONE SEEN [facility] Nitrite Ql (U) Negative NEGATIVE [facility] Protein (U) [Mass/Vol] 13.7 mg/dL High <=11.9 [facility] Protein Ql (U) Negative NEG/TRACE [facility] Leukocytes [#/volume] correc taylor for nucleated erythrocytes in Blood by Automated counon 11-15-2024 WBC corrected for nucl RBC Auto (Bld) [#/Vol] Leukocytes [#/volume] corrected for nucleated erythrocytes in Blood by Automated coun 4.0-11.0 [facility] WBC corrected for nucl RBC Auto (Bld) [#/Vol] 4.8 10 3/uL 4.0-11.0 [facility] MCH Auto (RBC) [Entitic mass ]on 11-15-2024 MCH (RBC) [Entitic mass] MCH [Entitic mass] by Automated count 26.7-34.0 [facility] MCH (RBC) [Entitic mass] 30.6 pg 26.7-34.0 [facility] MCHC Auto (RBC) [Mass/Vol]on 11-15-2024 MCHC (RBC) [Mass/Vol] MCHC [Mass/volume] by Automated count 29.9-35.2 [facility] MCHC (RBC) [Mass/Vol] 34.5 g/dL 29.9-35.2 [facility] MCV Auto (RBC) [Entitic vol] on 11-15-2024 MCV (RBC) [Entitic vol] MCV [Entitic vol ume] by Automated count 81.0-99.0 [facility] MCV (RBC) [Entitic vol] 88.7 fL 81.0-99.0 [facility] No Panel Informationon 11-15 25-Hydroxy Vitamin D Total 47.0 ng/mL [facility] Comment on above: <20 ng/mL Vit D defi cient20-<30 ng/mL Vit D [id number] ng/mL Vit D sufficient>100 ng/mL Potential Toxicity Phosphorus Level 4.2 mg/dL 2.6-4.7 [facility] Urine Bacteria TRACE #/HPF Abnormal NONE SEEN [facility] Urine Occult Blood Negative NEGATIVE [facility] Urine Other Casts NONE SEEN #/LPF NONE SEEN [facility] Urine Other Crystals None Seen #/HPF None Seen [facility] Urine Random Creatinine <13.00 mg/dL Low 20.00-300. 00 [facility] Urine RBC 0-2 #/HPF 0-2 [facility] Urine Squamous Epithelial Cells RARE #/LPF NONE/RARE [facility] Urine WBC 0-2 #/HPF Abnormal NONE SEEN [facility] Platelet mean volume Auto (B ld) [Entitic vol]on 11-15-2024 Platelet mean volume (Bld) [Entitic vol] Platelet mean volume [Entitic volume] in Blood by Automated count 9.5-13.5 [facility] Platelet mean volume (Bld) [Entitic vol] 9.9 fL 9.5-13.5 [facility] Platelets Auto (Bld) [#/Vol] on 11-15-2024 Platelets (Bld) [#/Vol] Platelets [#/vol ume] in Blood by Automated count 150-450 [facility] Platelets (Bld) [#/Vol] 400 10 3/uL 150-450 [facility] RBC Auto (Bld) [#/Vol]on RBC (Bld) [#/Vol] Erythrocytes [#/volume] in Blood by Automated count Low 4.20-5.40 [facility] RBC (Bld) [#/Vol] 3.82 10 6/uL Low 4.20-5.40 [facility] Serum or plasma anion gap de terminationon 11-15-2024 Anion gap [Moles/Vol] Serum or plasma an ion gap determination [facility] Anion gap [Moles/Vol] 12.0 mmol/L [facility] Laboratory - Chemistry and C hemistry - challengeon 11-07-2024 Bilirubin Ql (U) Negative [facility] Glucose (U) [Mass/Vol] Negative [facility] Ketones Ql (U) Negative [facility] pH (U) 7.0 [pH] [facility] Specific gravity (U) [Rel density] 1.010 [facility] - Specimen inform ationon 11-07-2024 Appearance (U) clear [facility] Color (U) lightyellow [facility] - Urinalysison Leukocyte esterase Test strip Ql (U) large [facility] Nitrite Ql (U) Negative [facility] Protein Ql (U) Negative [facility] No Panel Informationon 11-07 Urine Occult Blood trace-lysed [facility] Urine Urobilinogen 0.2EU/dL [facility] Urine Cultureon 11-07-2024 Bacteria identified Cx Nom (U) ORGANISM: Escherichia coli (O:ESCCOL) Sarah Count 75,000 ORGANISM: Escherichia coli (O:ESCCOL) Sarah Count >100,000 Aerobic SARAI Charge (NMIC56) ---- SUSCEPTIBILITY --- ORGANISM: O:ESCCOL ANTIBIOTIC INTERPRETATION SARAI Amikacin S <16 Amoxacillin/K Clavulanate S <8 Ampicillin S <8 Ampicillin/Sulbactam S <4 Aztreonam S <4 Cefazolin S <2 Cefepime S <2 Ceftazidime S <1 Ceftazidime/Avibactam S <4 Ceftolozane/Tazobacta m S <2 Ceftriaxone S <1 Cefuroxime S <4 Ciprofloxacin S <0.25 Ertapenem S <0.5 Gentamicin S <2 Levofloxacin S <0.5 Meropenem S <1 Meropenem/Vaborbactam S <2 Nitrofurantoin S <32 Piperacillin/Tazobact am S <8 Tetracycline S <4 Tigecycline S <2 Tobramycin S 4 Trimethoprim/Sulfamet hoxazole S <0.5 Aerobic SARAI Charge (NMIC56) ---- SUSCEPTIBILITY --- ORGANISM: O:ESCCOL ANTIBIOTIC INTERPRETATION SARAI Amikacin S <16 Amoxacillin/K Clavulanate S <8 Ampicillin S <8 Ampicillin/Sulbactam S <4 Aztreonam S <4 Cefazolin S <2 Cefepime S <2 Ceftazidime S <1 Ceftazidime/Avibactam S <4 Ceftolozane/Tazobacta m S <2 Ceftriaxone S <1 Cefuroxime S <4 Ciprofloxacin S <0.25 Ertapenem S <0.5 Gentamicin S <2 Levofloxacin S <0.5 Meropenem S <1 Meropenem/Vaborbactam S <2 Nitrofurantoin S <32 Piperacillin/Tazobact am S <8 Tetracycline S <4 Tigecycline S <2 Tobramycin S <2 Trimethoprim/Sulfamet hoxazole S <0.5 S = SUSCEPTIBLE I = INTERMEDIATE R = RESISTANT BLANK = DATA NOT AVAILABLE, OR DRUG NOT ADVISABLE OR TESTED R* = RESISTANCE DUE TO EXTENDED SPECTRUM BETA-LACTAMASES ESBL = EXTENDED SPECTRUM BETA-LACTAMASE TFG = THYMIDINE-DEPENDENT STRAIN ANNE = BETA-LACTAMASE POSITIVE IB = INDUCIBLE BETA-LACTAMASE. APPEARS IN PLACE OF 'S' WITH SPECIES KNOWN TO POSSESS INDUCIBLE BETA-LACTAMASES. POTENTIALLY THEY MAY BECOME RESISTANT TO ALL B-LACTAM DRUGS. PERFORMED BY: [place] [address] PATHOLOGIST SPANISH TRANSLATOR BÁRBARA LOGAN M.D. Normal [facility] Comment on above: Performed By: #### C UU #### [address] Urine cultureOrdered By: Liz Gomes on 11-07-2024 Bacteria identified Cx Nom (U) Escherichia coli Abnormal [facility] Bacteria identified Cx Nom (U) Escherichia coli Abnormal [facility] Bacteria identified Cx Nom (U) Escherichia coli#2 Abnormal [facility] Urinalysis macro (dipstick) panel (U)on 10-25-2024 Bilirubin, UA Negative Negative - 4(70) +++ mg/dL [facility] Blood, UA Positive Negative - 50 Joe/mcL [facility] Comment on above: 2+ Clarity, UA Cloudy [facility] Color, UA Yellow [facility] Glucose, UA Negative Negative - 1999(110) ++++ mg/dL [facility] Interpretation and review of laboratory results Abnormal [facility] Ketones, UA Positive Negative - 160(16) ++++ mg/dL [facility] Leukocytes, UA 2+ Negative - 500+++ Isa/mcL [facility] Nitrite, UA Negative Negative - Positive [facility] pH, UA 6 5 - 9 [facility] Protein, UA 1+ Negative - 1999(20) ++++ mg/dL [facility] Spec Grav, UA 1.005 1 - 1.03 [facility] Urobilinogen, UA 0.2 0.2 - 12 mg/dL [facility] No Panel Informationon 08-11 Olive GongDO 08/11/2024 2:04 PM Trigger Point Injection: right semispinalis capitis, left semispinalis capitis, right splenius capitis, left splenius capitis, right upper trapezius, left upper trapezius on 08/11/2024 1:21 PM Indications: muscle spasm and myalgia Details: 25 G needle Medications: 4 mL bupivacaine 0.25 %; 80 mg methylPREDNISolone acetate 40 MG/ML Procedure, treatment alternatives, risks and benefits explained, specific risks discussed. Consent was given by the patient. [facility] Alanine aminotransferase [En zymatic activity/volume] in Serum or PlasmaOrdered By: Tamera Randall on 04-23-2024 ALT [Catalytic activity/Vol] 16 U/L Normal 7-52 [facility] Comment on above: Performed By: #### E SR, CMP, CBC #### [facility] [address] Albumin [Mass/volume] in Ser um or Plasma by Bromocresol green (BCG) dye binding methoOrdered By: Tamera Randall on 04-23-2024 Albumin BCG dye [Mass/Vol] 4.4 g/dL 3.5-5.7 [facility] Alkaline phosphatase [Enzyma tic activity/volume] in Serum or PlasmaOrdered By: Tamera Randall on 04-23-2024 ALP [Catalytic activity/Vol] 62 U/L Normal 34-104 [facility] Comment on above: Result Comment: PERF ORMED BY: [place] [address] PATHOLOGIST SPANISH TRANSLATOR ONEIL GAMA M.D. Performed By: #### E SR, CMP, CBC #### [facility] [address] Aspartate aminotransferase [ Enzymatic activity/volume] in Serum or PlasmaOrdered By: Tamera Randall on 04-23-2024 AST [Catalytic activity/Vol] 21 U/L Normal 13-39 [facility] Comment on above: Performed By: #### E SR, CMP, CBC #### [address] Automated basophil %Ordered By: Tamera Suarezrow on 04-23-2024 Basophils/100 WBC (Bld) 1.4 % Normal . [facility] Comment on above: Performed By: #### E SR, CMP, CBC #### [address] Automated basophil countOrde red By: Tamera Suarezrow on 04-23-2024 Basophils (Bld) [#/Vol] 0.1 10*3/uL Normal 0.0-0.2 [facility] Comment on above: Performed By: #### E SR, CMP, CBC #### [address] Automated blood monocyte cou ntOrdered By: Tamera Suarezrow on 04-23-2024 Monocytes (Bld) [#/Vol] 0.6 10*3/uL Normal 0.0-0.8 [facility] Comment on above: Performed By: #### E SR, CMP, CBC #### [address] Automated eosinophil %Ordere d By: Tamera Suarezrow on 04-23-2024 Eosinophils/100 WBC (Bld) 2.4 % Normal . [facility] Comment on above: Performed By: #### E SR, CMP, CBC #### [address] Automated eosinophil countOr dered By: Tamera Suarezrow on 04-23-2024 Eosinophils (Bld) [#/Vol] 0.1 10*3/uL Normal 0.0-0.45 [facility] Comment on above: Performed By: #### E SR, CMP, CBC #### [address] Automated monocyte %Ordered By: Tamera Tonia on 04-23-2024 Monocytes/100 WBC (Bld) 12.2 % Normal . [facility] Comment on above: Performed By: #### E SR, CMP, CBC #### [address] Automated neutrophil %Ordere d By: Tamera Suarezrow on 04-23-2024 Neutrophils/100 WBC (Bld) 57.2 % Normal . [facility] Comment on above: Performed By: #### E SR, CMP, CBC #### [address] Bilirubin.total [Mass/volume ] in Serum or PlasmaOrdered By: Tamera Suarezrow on 04-23-2024 Bilirubin [Mass/Vol] 0.8 mg/dL Normal 0.3-1.0 [facility] Comment on above: Performed By: #### E SR, CMP, CBC #### [address] Calcium [Mass/volume] in Ser um or PlasmaOrdered By: Tameraluke Randall on 04-23-2024 Calcium [Mass/Vol] 9.3 mg/dL Normal 8.6-10.3 [facility] Comment on above: Performed By: #### E SR, CMP, CBC #### [address] Carbon dioxide, total [Moles /volume] in Serum or PlasmaOrdered By: Tamera Tonia on 04-23-2024 CO2 [Moles/Vol] 28.2 mmol/L Normal 21.0-31.0 [facility] Comment on above: Performed By: #### E SR, CMP, CBC #### [place] [address] [place] Chloride [Moles/volume] in S jl or PlasmaOrdered By: Tameraluke Randall on 04-23-2024 Chloride [Moles/Vol] 94 mmol/L Low 98-107 [facility] Comment on above: Performed By: #### E SR, CMP, CBC #### [address] Complete Blood Count Auto Di ffon 04-23-2024 Mean Corpuscular HGB Conc 34.5 g/dL Normal 32.0-35.0 [facility] Comment on above: Performed By: #### E SR, CMP, CBC #### [address] NRBC% 0.1 /100{WBC} Normal 0-0.5 [facility] Comment on above: Performed By: #### E SR, CMP, CBC #### [address] Comprehensive Metabolic Pane canelo 04-23-2024 Albumin [Mass/Vol] 4.4 g/dL Normal 3.5-5.7 [facility] Comment on above: Performed By: #### E SR, CMP, CBC #### [address] GFR/1.73 sq M.predicted MDRD (S/P/Bld) [Vol rate/Area] mL/min/{1.73_m2} Normal [facility] Comment on above: Performed By: #### E SR, CMP, CBC #### [address] Creatinine [Mass/volume] in Serum or PlasmaOrdered By: Tamera Randall on 04-23-2024 Creatinine [Mass/Vol] 0.71 mg/dL Normal 0.60-1.20 [facility] Comment on above: Performed By: #### E SR, CMP, CBC #### [address] Erythrocyte Sedimentation Ra eulalio 04-23-2024 ESR (Bld) [Velocity] 22 mm/h Normal 0-29 [facility] Comment on above: Result Comment: PERF ORMED BY: [place] [address] PATHOLOGIST SPANISH TRANSLATOR ONEIL GAMA M.D. Performed By: #### E SR, CMP, CBC #### [address] Erythrocyte distribution wid th [Ratio] by Automated countOrdered By: Tamera Randall on 04-23-2024 Erythrocyte distribution width (RBC) [Ratio] 13.3 % Normal 11.9-15.3 [facility] Comment on above: Performed By: #### E RICKIE GRACE, CBC #### [address] Erythrocyte sedimentation ra te by Photometric methodOrdered By: Tamera Randall on 04-23-2024 ESR Photometric method (Bld) [Velocity] 22 mm/hr 0-29 [facility] Erythrocytes [#/volume] in B lood by Automated countOrdered By: Tamera Randall on 04-23-2024 RBC (Bld) [#/Vol] 3.99 10*6/uL Normal 3.60-5.00 [facility] Comment on above: Performed By: #### E RICKIE GRACE, CBC #### [address] Glucose [Mass/volume] in Ser um or PlasmaOrdered By: Tamera Randall on 04-23-2024 Glucose [Mass/Vol] 91 mg/dL Normal 70-100 [facility] Comment on above: ADA recommended refe rence rangeRandom Glucose Reference Range is dependent on time and content of last meal. Glucose of more than 200 mg/dL in a nonstressed, ambulatory subject supports the diagnosis of Diabetes Mellitus. Result Comment: Outing om Glucose Reference Range is dependent on time and content of last meal. Glucose of more than 200 mg/dL in a nonstressed, ambulatory subject supports the diagnosis of Diabetes Mellitus. ADA recommended reference range Performed By: #### E RICKIE GRACE, CBC #### [address] Hematocrit [Volume Fraction] of Blood by Automated countOrdered By: Tamera Randall on 04-23-2024 Hematocrit (Bld) [Volume fraction] 36.1 % Normal 34.0-46.4 [facility] Comment on above: Performed By: #### E RICKIE GRACE, CBC #### [address] Hemoglobin [Mass/volume] in BloodOrdered By: Tamera Randall on 04-23-2024 Hemoglobin (Bld) [Mass/Vol] 12.4 g/dL Normal 11.8-15.4 [facility] Comment on above: Performed By: #### E SR, CMP, CBC #### [address] Leukocytes [#/volume] correc taylor for nucleated erythrocytes in Blood by Automated counOrdered By: Tamera Suarezrow on 04-23-2024 WBC corrected for nucl RBC Auto (Bld) [#/Vol] 4.6 10*3/uL 3.8-11.6 [facility] Leukocytes [#/volume] in Blo od by Automated countOrdered By: Tamera Suarezrow on 04-23-2024 WBC (Bld) [#/Vol] 4.6 10*3/uL Normal 3.8-11.6 [facility] Comment on above: Performed By: #### E SR, CMP, CBC #### [address] Lymphocytes [#/volume] in Bl ood by Automated countOrdered By: Tamera Suarezrow on 04-23-2024 Lymphocytes (Bld) [#/Vol] 1.2 10*3/uL Normal 1.00-4.8 [facility] Comment on above: Performed By: #### E SR, CMP, CBC #### [address] Lymphocytes/100 leukocytes i n Blood by Automated countOrdered By: Tamera Suarezrow on 04-23-2024 Lymphocytes/100 WBC (Bld) 26.8 % Normal . [facility] Comment on above: Performed By: #### E SR, CMP, CBC #### [address] MCH [Entitic mass] by Automa taylor countOrdered By: Tamera Suarezrow on 04-23-2024 MCH (RBC) [Entitic mass] 31.2 pg Normal 24.7-34.3 [facility] Comment on above: Performed By: #### E SR, CMP, CBC #### [address] MCHC Auto (RBC) [Mass/Vol]Or dered By: Tamera Randall on 04-23-2024 MCHC (RBC) [Mass/Vol] 34.5 g/dL 32.0-35.0 [facility] MCV [Entitic volume] by Auto mated countOrdered By: Tamera Suarezrow on 04-23-2024 MCV (RBC) [Entitic vol] 90.6 fL Normal 80-100 [facility] Comment on above: Performed By: #### E SR, CMP, CBC #### [facility] [address] [place] [address] Neutrophils [#/volume] in Bl ood by Automated countOrdered By: Tamera Randall on 04-23-2024 Neutrophils (Bld) [#/Vol] 2.6 10*3/uL Normal 1.8-7.7 [facility] Comment on above: Performed By: #### E SR, CMP, CBC #### [facility] [address] [place] [address] No Panel InformationOrdered By: Tamera Randall on 04-23-2024 Estimated GFR (CKD-EPI) > 60.0 mL/Min [facility] Creatinine Clearance (Chem N/A [facility] Nucleated erythrocytes [Pres ence] in Blood by Automated countOrdered By: Tamera Randall on 04-23-2024 Nucleated RBC Auto Ql (Bld) 0.1 /100{WBC} 0-0.5 [facility] Platelet mean volume [Entiti c volume] in Blood by Automated countOrdered By: Tamera Radnall on 04-23-2024 Platelet mean volume (Bld) [Entitic vol] 9.0 fL Normal 6.3-10.7 [facility] Comment on above: Performed By: #### E SR, CMP, CBC #### [facility] [address] [place] [address] Platelets [#/volume] in Bloo d by Automated countOrdered By: Tamera Randall on 04-23-2024 Platelets (Bld) [#/Vol] 299 10*3/uL Normal 150-450 [facility] Comment on above: Performed By: #### E SR, CMP, CBC #### [address] Potassium [Moles/volume] in Serum or PlasmaOrdered By: Tamera Randall on 04-23-2024 Potassium [Moles/Vol] 4.4 mmol/L Normal 3.5-5.1 [facility] Comment on above: Performed By: #### E SR CMP, CBC #### [address] Protein [Mass/volume] in Ser um or PlasmaOrdered By: Tamera Randall on 04-23-2024 Protein [Mass/Vol] 7.2 g/dL Normal 6.4-8.9 [facility] Comment on above: Performed By: #### E RICKIE GRACE, CBC #### [address] Serum globulin measurement b y calculation (mass/volume)Ordered By: Tamera Randall on 04-23-2024 Globulin (S) [Mass/Vol] 2.8 g/dL Normal [facility] Comment on above: Performed By: #### E RICKIE GRACE, CBC #### [address] Serum or plasma albumin/glob ulin mass ratioOrdered By: Tamera Randall on 04-23-2024 Albumin/Globulin [Mass ratio] 1.6 {ratio} Normal [facility] Comment on above: Performed By: #### E RICKIE GRACE, CBC #### [address] Serum or plasma anion gap de terminationOrdered By: Tamera Randall on 04-23-2024 Anion gap [Moles/Vol] 12.2 mmol/L Normal 6.0-15.0 [facility] Comment on above: Performed By: #### E SR CMP, CBC #### [address] Sodium [Moles/volume] in Ser um or PlasmaOrdered By: Tamera Randall on 04-23-2024 Sodium [Moles/Vol] 130 mmol/L Low 136-145 [facility] Comment on above: Performed By: #### E SR, CMP, CBC #### [facility] [address] Urea nitrogen [Mass/volume] in Serum or PlasmaOrdered By: Tamera Randall on 04-23-2024 Urea nitrogen [Mass/Vol] 12 mg/dL Normal 7-25 [facility] Comment on above: Performed By: #### E SR, CMP, CBC #### [facility] [address] MM screening mammo BI w/CADo n 02-05-2024 MM screening mammo BI w/CAD [facility] [place] [address] [place] [address] Mammography Report Signed Patient: Sari Abbasi MR#: [id number] : 1950 Acct:[id number] Age/Sex: 73 / F ADM Date: 02/05/24 Loc: [place] Room: Type: [facility] Attending Dr: Referral Self Copies to: Hudson Castañeda MD SELF,REFERRAL Ordering Provider: SELF,REFERRAL Date of Service: 02/05/24 MM/MM screening mammo BI w/CAD: SCREENING BILATERAL Screening Full Field digital mammogram with 3-D imaging. Full field digital CC and MLO imaging performed. CAD utilized. COMPARISON: 01/08/2023 HISTORY: Annual screening BREAST COMPOSITION: Scattered fibroglandular densities of the breast parenchyma identified BREAST CALCIFICATIONS: Benign calcifications present. VASCULAR CALCIFICATIONS: Present ARCHITECTURAL DISTORTION: None BREAST NODULE: None AXILLARY LYMPH NODES: Normal POSTSURGICAL CHANGES: None MM/MM screening mammo BI w/CAD IMPRESSION: No mammographic evidence of malignancy. Routine follow-up recommended in one year. RESULT CODE: 2 Benign Findings(s) DENSITY CODE: 2 (approximately 25-50% glandular) FOLLOW UP: 1YR THE FALSE-NEGATIVE RATE OF MAMMOGRAPHY IS APPROXIMATELY 10%. IMAGING OF A PALPABLE ABNORMALITY MUST BE BASED ON CLINICAL GROUNDS. PATIENT WAS ENTERED INTO A REMINDER SYSTEM WITH A TARGET DUE DATE FOR THE NEXT MAMMOGRAM. Impression dictated by: Chepe Kemp M.D.02/05/2024 2:16 PM Dictation Location: [facility] Transcribed By: ARIELLA 02/05/24 1416 Dictated By: Chepe Kemp DO 02/05/24 1415 Signed By: 02/05/24 141 Normal [facility] Alanine aminotransferase [En zymatic activity/volume] in Serum or PlasmaOrdered By: Tamera Randall on 10-27-2023 ALT [Catalytic activity/Vol] 16 U/L 7-52 [facility] Albumin [Mass/volume] in Ser um or Plasma by Bromocresol green (BCG) dye binding methoOrdered By: Tamera Randall on 10-27-2023 Albumin BCG dye [Mass/Vol] 4.5 g/dL 3.5-5.7 [facility] Alkaline phosphatase [Enzyma tic activity/volume] in Serum or PlasmaOrdered By: Tamera Randall on 10-27-2023 ALP [Catalytic activity/Vol] 62 U/L 34-104 [facility] Aspartate aminotransferase [ Enzymatic activity/volume] in Serum or PlasmaOrdered By: Tamera Randall on 10-27-2023 AST [Catalytic activity/Vol] 20 U/L 13-39 [facility] Basophils Auto (Bld) [#/Vol] Ordered By: Tamera Randall on 10-27-2023 Basophils (Bld) [#/Vol] 0.0 10*3/uL 0.0-0.2 [facility] Basophils/100 WBC Auto (Bld) Ordered By: Tamera Randall on 10-27-2023 Basophils/100 WBC (Bld) 0.7 % . [facility] Bilirubin.total [Mass/volume ] in Serum or PlasmaOrdered By: Tamera Randall on 10-27-2023 Bilirubin [Mass/Vol] 0.6 mg/dL 0.3-1.0 [facility] Calcium [Mass/volume] in Ser um or PlasmaOrdered By: Tamera Randall 10-27-2023 Calcium [Mass/Vol] 9.5 mg/dL 8.6-10.3 [facility] Carbon dioxide, total [Moles /volume] in Serum or PlasmaOrdered By: Tamera Randall 10-27-2023 CO2 [Moles/Vol] 25.7 mmol/L 21.0-31.0 [facility] Chloride [Moles/volume] in S jl or PlasmaOrdered By: Tamera Randall on 10-27-2023 Chloride [Moles/Vol] 98 mmol/L 98-107 [facility] Creatinine [Mass/volume] in Serum or PlasmaOrdered By: Tamera Randall on 10-27-2023 Creatinine [Mass/Vol] 0.69 mg/dL 0.60-1.20 [facility] Eosinophils Auto (Bld) [#/Vo l]Ordered By: Tamera Randall on 10-27-2023 Eosinophils (Bld) [#/Vol] 0.2 10*3/uL 0.0-0.45 [facility] Eosinophils/100 WBC Auto (Bl d)Ordered By: Tamera Randall on 10-27-2023 Eosinophils/100 WBC (Bld) 2.7 % . [facility] Erythrocyte distribution wid th Auto (RBC) [Ratio]Ordered By: Tamera Randall on 10-27-2023 Erythrocyte distribution width (RBC) [Ratio] 13.4 % 11.9-15.3 [facility] Erythrocyte sedimentation ra te by Photometric methodOrdered By: Tamera Randall on 10-27-2023 ESR Photometric method (Bld) [Velocity] 17 mm/hr 0-29 [facility] Ferritin [Mass/volume] in Se rum or PlasmaOrdered By: Gonsalo Orta on 10-27-2023 Ferritin [Mass/Vol] 44.3 ng/mL 11.0-306.8 [facility] Folate [Mass/volume] in Seru m or PlasmaOrdered By: Gonsalo Orta on 10-27-2023 Folate [Mass/Vol] 36.0 ng/mL >5.9 [facility] Comment on above: Folate reference ran ge: >5.9 ng/mlThe WHO technical consultation on folate and vitamin [id number] has determined that folate concentrations lessthan 4 ng/ml are considered deficient. Globulin Calc (S) [Mass/Vol] Ordered By: Tamera Randall on 10-27-2023 Globulin (S) [Mass/Vol] 2.6 g/dL [facility] Glucose [Mass/volume] in Ser um or PlasmaOrdered By: Tamera Randall on 10-27-2023 Glucose [Mass/Vol] 96 mg/dL 70-100 [facility] Comment on above: ADA recommended refe rence rangeRandom Glucose Reference Range is dependent on time and content of last meal. Glucose of more than 200 mg/dL in a nonstressed, ambulatory subject supports the diagnosis of Diabetes Mellitus. Hematocrit Auto (Bld) [Volum e fraction]Ordered By: Tamera Randall on 10-27-2023 Hematocrit (Bld) [Volume fraction] 35.5 % 34.0-46.4 [facility] Hemoglobin [Mass/volume] in BloodOrdered By: Tamera Randall on 10-27-2023 Hemoglobin (Bld) [Mass/Vol] 11.9 g/dL 11.8-15.4 [facility] Iron [Mass/volume] in Serum or PlasmaOrdered By: Gonsalo You on 10-27-2023 Iron [Mass/Vol] 93 ug/dL 50-212 [facility] Iron binding capacity [Mass/ volume] in Serum or PlasmaOrdered By: Gonsalo You on 10-27-2023 Iron binding capacity [Mass/Vol] 372 ug/dL 255-450 [facility] Iron saturation [Mass Fracti on] in Serum or PlasmaOrdered By: Gonsalo You on 10-27-2023 Iron saturation [Mass fraction] 25.0 % 20-50 [facility] Leukocytes [#/volume] correc taylor for nucleated erythrocytes in Blood by Automated counOrdered By: Tamera Randall on 10-27-2023 WBC corrected for nucl RBC Auto (Bld) [#/Vol] 6.1 10*3/uL 3.8-11.6 [facility] Lymphocytes Auto (Bld) [#/Vo l]Ordered By: Tamera Randall on 10-27-2023 Lymphocytes (Bld) [#/Vol] 1.3 10*3/uL 1.00-4.8 [facility] Lymphocytes/100 WBC Auto (Bl d)Ordered By: Tamera Randall on 10-27-2023 Lymphocytes/100 WBC (Bld) 20.9 % . [facility] MCH Auto (RBC) [Entitic mass ]Ordered By: Tamera Randall on 10-27-2023 MCH (RBC) [Entitic mass] 30.4 pg 24.7-34.3 [facility] MCHC Auto (RBC) [Mass/Vol]Or dered By: Tamera Randall on 10-27-2023 MCHC (RBC) [Mass/Vol] 33.6 g/dL 32.0-35.0 [facility] MCV Auto (RBC) [Entitic vol] Ordered By: Tamera Randall on 10-27-2023 MCV (RBC) [Entitic vol] 90.4 fL 80-100 [facility] Magnesium [Mass/volume] in S jl or PlasmaOrdered By: Gonsalo Orta on 10-27-2023 Magnesium [Mass/Vol] 1.9 mg/dL 1.9-2.7 [facility] Monocytes Auto (Bld) [#/Vol] Ordered By: Tamera Randall on 10-27-2023 Monocytes (Bld) [#/Vol] 0.5 10*3/uL 0.0-0.8 [facility] Monocytes/100 WBC Auto (Bld) Ordered By: Tamera Randall on 10-27-2023 Monocytes/100 WBC (Bld) 7.5 % . [facility] Neutrophils Auto (Bld) [#/Vo l]Ordered By: Tamera Randall on 10-27-2023 Neutrophils (Bld) [#/Vol] 4.1 10*3/uL 1.8-7.7 [facility] Neutrophils/100 WBC Auto (Bl d)Ordered By: Tamera Randall on 10-27-2023 Neutrophils/100 WBC (Bld) 68.2 % . [facility] No Panel InformationOrdered By: Tamera Randall on 10-27-2023 Estimated GFR (CKD-EPI) > 60.0 mL/Min [facility] Creatinine Clearance (Chem N/A [facility] Nucleated erythrocytes [Pres ence] in Blood by Automated countOrdered By: Tamera Randall on 10-27-2023 Nucleated RBC Auto Ql (Bld) 0.1 /100{WBC} 0-0.5 [facility] Parathyrin.intact [Mass/volu me] in Serum or PlasmaOrdered By: Gonsalo Orta on 10-27-2023 Parathyrin.intact [Mass/Vol] 29.8 pg/mL 12-88 [facility] Phosphate [Mass/volume] in S jl or PlasmaOrdered By: Gonsalo Orta on 10-27-2023 Phosphate [Mass/Vol] 4.4 mg/dL 2.5-4.5 [facility] Platelet mean volume Auto (B ld) [Entitic vol]Ordered By: Tamera Randall on 10-27-2023 Platelet mean volume (Bld) [Entitic vol] 9.3 fL 6.3-10.7 [facility] Platelets Auto (Bld) [#/Vol] Ordered By: Tamera Randall on 10-27-2023 Platelets (Bld) [#/Vol] 275 10*3/uL 150-450 [facility] Potassium [Moles/volume] in Serum or PlasmaOrdered By: Tamera Randall on 10-27-2023 Potassium [Moles/Vol] 4.5 mmol/L 3.5-5.1 [facility] Protein [Mass/volume] in Ser um or PlasmaOrdered By: Tamera Randall on 10-27-2023 Protein [Mass/Vol] 7.1 g/dL 6.4-8.9 [facility] RBC Auto (Bld) [#/Vol]Ordere d By: Tamera Randall on 10-27-2023 RBC (Bld) [#/Vol] 3.93 10*6/uL 3.60-5.00 [facility] Serum or plasma albumin/glob ulin mass ratioOrdered By: Tamera Randall on 10-27-2023 Albumin/Globulin [Mass ratio] 1.7 {ratio} [facility] Serum or plasma anion gap de terminationOrdered By: Tamera Randall on 10-27-2023 Anion gap [Moles/Vol] 12.8 mmol/L 6.0-15.0 [facility] Sodium [Moles/volume] in Ser um or PlasmaOrdered By: Tamera Randall on 10-27-2023 Sodium [Moles/Vol] 132 mmol/L 136-145 [facility] Transferrin [Mass/volume] in Serum or PlasmaOrdered By: Gonsalo Orta on 10-27-2023 Transferrin [Mass/Vol] 266 mg/dL 203-362 [facility] Urate [Mass/volume] in Serum or PlasmaOrdered By: Gonsalo Orta on 10-27-2023 Urate [Mass/Vol] 2.9 mg/dL 2.3-6.6 [facility] Urea nitrogen [Mass/volume] in Serum or PlasmaOrdered By: Tamera Randall on 10-27-2023 Urea nitrogen [Mass/Vol] 21 mg/dL 01-28 [facility] Vitamin B12 ser/plasOrdered By: Gonsalo Orta on 10-27-2023 Cobalamin (Vitamin B12) [Mass/Vol] 1280 pg/mL 180-914 [facility] Vitamin D+Metabolites [Mass/ volume] in Serum or PlasmaOrdered By: Gonsalo Orta on 10-27-2023 Vitamin D+Metabolites [Mass/Vol] 57.7 ng/mL 30-100 [facility] Comment on above: VITAMIN D STATUS 25( OH)VITAMIN D RANGE (ng/mL) Deficient <20 Insufficient 20 to <30Sufficient 30 to 100Reference: Gail MF,Laly EAGEL, Magui GASPAR, et al. Evaluation,treatment, and prevention of vitamin D deficiency; an Endocrine Society clinical practice guideline. JCEM. 2010; 96(7):1911-30. WBC Auto (Bld) [#/Vol]Ordere d By: Tamera Randall on 10-27-2023 WBC (Bld) [#/Vol] 6.1 10*3/uL 3.8-11.6 [facility] Alanine aminotransferase [En zymatic activity/volume] in Serum or PlasmaOrdered By: Tamera Randall on 04-29-2023 ALT [Catalytic activity/Vol] 17 U/L [facility] Albumin [Mass/volume] in Ser um or Plasma by Bromocresol green (BCG) dye binding methoOrdered By: Tamera Randall on 04-29-2023 Albumin BCG dye [Mass/Vol] 4.4 g/dL 3.5-5.7 [facility] Alkaline phosphatase [Enzyma tic activity/volume] in Serum or PlasmaOrdered By: Tamera Randall on 04-29-2023 ALP [Catalytic activity/Vol] 79 U/L 34-104 [facility] Aspartate aminotransferase [ Enzymatic activity/volume] in Serum or PlasmaOrdered By: Tamera Randall on 04-29-2023 AST [Catalytic activity/Vol] 20 U/L 13-39 [facility] Basophils Auto (Bld) [#/Vol] Ordered By: Tamera Randall on 04-29-2023 Basophils (Bld) [#/Vol] 0.0 10*3/uL 0.0-0.2 [facility] Basophils/100 WBC Auto (Bld) Ordered By: Tamera Randall on 04-29-2023 Basophils/100 WBC (Bld) 0.9 % . [facility] Bilirubin.total [Mass/volume ] in Serum or PlasmaOrdered By: Tamera Randall on 04-29-2023 Bilirubin [Mass/Vol] 0.8 mg/dL 0.3-1.0 [facility] Calcium [Mass/volume] in Ser um or PlasmaOrdered By: Tamera Randall on 04-29-2023 Calcium [Mass/Vol] 9.6 mg/dL 8.6-10.3 [facility] Carbon dioxide, total [Moles /volume] in Serum or PlasmaOrdered By: Tamera Randall on 04-29-2023 CO2 [Moles/Vol] 29.3 mmol/L 21.0-31.0 [facility] Chloride [Moles/volume] in S jl or PlasmaOrdered By: Tamera Randall on 04-29-2023 Chloride [Moles/Vol] 98 mmol/L 98-107 [facility] Creatinine [Mass/volume] in Serum or PlasmaOrdered By: Tamera Randall on 04-29-2023 Creatinine [Mass/Vol] 0.73 mg/dL 0.60-1.20 [facility] Eosinophils Auto (Bld) [#/Vo l]Ordered By: Tamera Randall on 04-29-2023 Eosinophils (Bld) [#/Vol] 0.2 10*3/uL 0.0-0.45 [facility] Eosinophils/100 WBC Auto (Bl d)Ordered By: Tamera Randall on 04-29-2023 Eosinophils/100 WBC (Bld) 4.2 % . [facility] Erythrocyte distribution wid th Auto (RBC) [Ratio]Ordered By: Tamera Randall on 04-29-2023 Erythrocyte distribution width (RBC) [Ratio] 13.3 % 11.9-15.3 [facility] Erythrocyte sedimentation ra te by Photometric methodOrdered By: Tamera Randall on 04-29-2023 ESR Photometric method (Bld) [Velocity] 17 mm/hr 0-29 [facility] Globulin Calc (S) [Mass/Vol] Ordered By: Tamera Randall on 04-29-2023 Globulin (S) [Mass/Vol] 2.7 g/dL [facility] Glucose [Mass/volume] in Ser um or PlasmaOrdered By: Tamera Randall on 04-29-2023 Glucose [Mass/Vol] 83 mg/dL 70-100 [facility] Comment on above: ADA recommended refe rence rangeRandom Glucose Reference Range is dependent on time and content of last meal. Glucose of more than 200 mg/dL in a nonstressed, ambulatory subject supports the diagnosis of Diabetes Mellitus. Hematocrit Auto (Bld) [Volum e fraction]Ordered By: Tamera Randall on 04-29-2023 Hematocrit (Bld) [Volume fraction] 34.2 % 34.0-46.4 [facility] Hemoglobin [Mass/volume] in BloodOrdered By: Tamera Randall on 04-29-2023 Hemoglobin (Bld) [Mass/Vol] 11.5 g/dL 11.8-15.4 [facility] Leukocytes [#/volume] correc taylor for nucleated erythrocytes in Blood by Automated counOrdered By: Tamera Randall on 04-29-2023 WBC corrected for nucl RBC Auto (Bld) [#/Vol] 4.8 10*3/uL 3.8-11.6 [facility] Lymphocytes Auto (Bld) [#/Vo l]Ordered By: Tamrea Randall on 04-29-2023 Lymphocytes (Bld) [#/Vol] 1.4 10*3/uL 1.00-4.8 [facility] Lymphocytes/100 WBC Auto (Bl d)Ordered By: Tamera Randall on 04-29-2023 Lymphocytes/100 WBC (Bld) 29.9 % . [facility] MCH Auto (RBC) [Entitic mass ]Ordered By: Tamera Randall on 04-29-2023 MCH (RBC) [Entitic mass] 30.3 pg 24.7-34.3 [facility] MCHC Auto (RBC) [Mass/Vol]Or dered By: Tamera Randall on 04-29-2023 MCHC (RBC) [Mass/Vol] 33.7 g/dL 32.0-35.0 [facility] MCV Auto (RBC) [Entitic vol] Ordered By: Tamera Randall on 04-29-2023 MCV (RBC) [Entitic vol] 90.0 fL 80-100 [facility] Monocytes Auto (Bld) [#/Vol] Ordered By: Tamera Randall on 04-29-2023 Monocytes (Bld) [#/Vol] 0.4 10*3/uL 0.0-0.8 [facility] Monocytes/100 WBC Auto (Bld) Ordered By: Tamera Randall on 04-29-2023 Monocytes/100 WBC (Bld) 8.2 % . [facility] Neutrophils Auto (Bld) [#/Vo l]Ordered By: Tamera Randall on 04-29-2023 Neutrophils (Bld) [#/Vol] 2.7 10*3/uL 1.8-7.7 [facility] Neutrophils/100 WBC Auto (Bl d)Ordered By: Tamera Randall on 04-29-2023 Neutrophils/100 WBC (Bld) 56.8 % . [facility] No Panel InformationOrdered By: Tamera Randall on 04-29-2023 Estimated GFR (CKD-EPI) > 60.0 mL/Min [facility] Creatinine Clearance (Chem N/A [facility] Nucleated erythrocytes [Pres ence] in Blood by Automated countOrdered By: Tamera Randall on 04-29-2023 Nucleated RBC Auto Ql (Bld) 0.1 /100{WBC} 0-0.5 [facility] Platelet mean volume Auto (B ld) [Entitic vol]Ordered By: Tamera Randall on 04-29-2023 Platelet mean volume (Bld) [Entitic vol] 8.9 fL 6.3-10.7 [facility] Platelets Auto (Bld) [#/Vol] Ordered By: Tamera Randall on 04-29-2023 Platelets (Bld) [#/Vol] 276 10*3/uL 150-450 [facility] Potassium [Moles/volume] in Serum or PlasmaOrdered By: Tamera Randall on 04-29-2023 Potassium [Moles/Vol] 4.3 mmol/L 3.5-5.1 [facility] Protein [Mass/volume] in Ser um or PlasmaOrdered By: Tmaera Randall on 04-29-2023 Protein [Mass/Vol] 7.1 g/dL 6.4-8.9 [facility] RBC Auto (Bld) [#/Vol]Ordere d By: Tamera Randall on 04-29-2023 RBC (Bld) [#/Vol] 3.80 10*6/uL 3.60-5.00 [facility] Serum or plasma albumin/glob ulin mass ratioOrdered By: Tamera Randall on 04-29-2023 Albumin/Globulin [Mass ratio] 1.6 {ratio} [facility] Serum or plasma anion gap de terminationOrdered By: Tamera Randall on 04-29-2023 Anion gap [Moles/Vol] 9.0 mmol/L 6.0-15.0 [facility] Sodium [Moles/volume] in Ser um or PlasmaOrdered By: Tamera Randall on 04-29-2023 Sodium [Moles/Vol] 132 mmol/L 136-145 [facility] Urea nitrogen [Mass/volume] in Serum or PlasmaOrdered By: Tamera Randall on 04-29-2023 Urea nitrogen [Mass/Vol] 18 mg/dL 7-25 [facility] WBC Auto (Bld) [#/Vol]Ordere d By: Tamera Randall on 04-29-2023 WBC (Bld) [#/Vol] 4.8 10*3/uL 3.8-11.6 [facility] Alanine aminotransferase [En zymatic activity/volume] in Serum or PlasmaOrdered By: Tamera Randall on 10-25-2022 ALT [Catalytic activity/Vol] 16 U/L 7-52 [facility] Albumin [Mass/volume] in Ser um or Plasma by Bromocresol green (BCG) dye binding methoOrdered By: Tamera Randall on 10-25-2022 Albumin BCG dye [Mass/Vol] 4.4 g/dL 3.5-5.7 [facility] Alkaline phosphatase [Enzyma tic activity/volume] in Serum or PlasmaOrdered By: Tamera Randall on 10-25-2022 ALP [Catalytic activity/Vol] 72 U/L 34-104 [facility] Aspartate aminotransferase [ Enzymatic activity/volume] in Serum or PlasmaOrdered By: Tamera Randall on 10-25-2022 AST [Catalytic activity/Vol] 21 U/L 13-39 [facility] Basophils Auto (Bld) [#/Vol] Ordered By: Tamera Randall on 10-25-2022 Basophils (Bld) [#/Vol] 0.0 10*3/uL 0.0-0.2 [facility] Basophils/100 WBC Auto (Bld) Ordered By: Tamera Randall on 10-25-2022 Basophils/100 WBC (Bld) 0.7 % . [facility] Bilirubin.total [Mass/volume ] in Serum or PlasmaOrdered By: Tamera Randall on 10-25-2022 Bilirubin [Mass/Vol] 0.7 mg/dL 0.3-1.0 [facility] Calcium [Mass/volume] in Ser um or PlasmaOrdered By: Tamera Randall on 10-25-2022 Calcium [Mass/Vol] 9.2 mg/dL 8.6-10.3 [facility] Carbon dioxide, total [Moles /volume] in Serum or PlasmaOrdered By: Tamera Randall on 10-25-2022 CO2 [Moles/Vol] 27.0 mmol/L 21.0-31.0 [facility] Chloride [Moles/volume] in S jl or PlasmaOrdered By: Tamera Randall on 10-25-2022 Chloride [Moles/Vol] 98 mmol/L 98-107 [facility] Creatinine [Mass/volume] in Serum or PlasmaOrdered By: Tamera Randall on 10-25-2022 Creatinine [Mass/Vol] 0.70 mg/dL 0.60-1.20 [facility] Eosinophils Auto (Bld) [#/Vo l]Ordered By: Tamera Randall on 10-25-2022 Eosinophils (Bld) [#/Vol] 0.2 10*3/uL 0.0-0.45 [facility] Eosinophils/100 WBC Auto (Bl d)Ordered By: Tamera Randall on 10-25-2022 Eosinophils/100 WBC (Bld) 3.2 % . [facility] Erythrocyte distribution wid th Auto (RBC) [Ratio]Ordered By: Tamera Randall on 10-25-2022 Erythrocyte distribution width (RBC) [Ratio] 13.5 % 11.9-15.3 [facility] Erythrocyte sedimentation ra te by Photometric methodOrdered By: Tamera Randall on 10-25-2022 ESR Photometric method (Bld) [Velocity] 23 mm/hr 0-29 [facility] Globulin Calc (S) [Mass/Vol] Ordered By: Tamera Randall on 10-25-2022 Globulin (S) [Mass/Vol] 2.5 g/dL [facility] Glucose [Mass/volume] in Ser um or PlasmaOrdered By: Tamera Randall on 10-25-2022 Glucose [Mass/Vol] 86 mg/dL 70-100 [facility] Comment on above: ADA recommended refe rence rangeRandom Glucose Reference Range is dependent on time and content of last meal. Glucose of more than 200 mg/dL in a nonstressed, ambulatory subject supports the diagnosis of Diabetes Mellitus. Hematocrit Auto (Bld) [Volum e fraction]Ordered By: Tamera Randall on 10-25-2022 Hematocrit (Bld) [Volume fraction] 35.7 % 34.0-46.4 [facility] Hemoglobin [Mass/volume] in BloodOrdered By: Tamera Randall on 10-25-2022 Hemoglobin (Bld) [Mass/Vol] 12.1 g/dL 11.8-15.4 [facility] Leukocytes [#/volume] correc taylor for nucleated erythrocytes in Blood by Automated counOrdered By: Tamera Randall on 10-25-2022 WBC corrected for nucl RBC Auto (Bld) [#/Vol] 4.9 10*3/uL 3.8-11.6 [facility] Lymphocytes Auto (Bld) [#/Vo l]Ordered By: Tamera Randall on 10-25-2022 Lymphocytes (Bld) [#/Vol] 1.4 10*3/uL 1.00-4.8 [facility] Lymphocytes/100 WBC Auto (Bl d)Ordered By: Tamera Randall on 10-25-2022 Lymphocytes/100 WBC (Bld) 28.5 % . [facility] MCH Auto (RBC) [Entitic mass ]Ordered By: Tamera Randall on 10-25-2022 MCH (RBC) [Entitic mass] 30.4 pg 24.7-34.3 [facility] MCHC Auto (RBC) [Mass/Vol]Or dered By: Tamera Randall on 10-25-2022 MCHC (RBC) [Mass/Vol] 33.9 g/dL 32.0-35.0 [facility] MCV Auto (RBC) [Entitic vol] Ordered By: Tamera Randall on 10-25-2022 MCV (RBC) [Entitic vol] 89.6 fL 80-100 [facility] Monocytes Auto (Bld) [#/Vol] Ordered By: Taemra Randall on 10-25-2022 Monocytes (Bld) [#/Vol] 0.4 10*3/uL 0.0-0.8 [facility] Monocytes/100 WBC Auto (Bld) Ordered By: Tamera Randall on 10-25-2022 Monocytes/100 WBC (Bld) 8.7 % . [facility] Neutrophils Auto (Bld) [#/Vo l]Ordered By: Tamera Randall on 10-25-2022 Neutrophils (Bld) [#/Vol] 2.9 10*3/uL 1.8-7.7 [facility] Neutrophils/100 WBC Auto (Bl d)Ordered By: Tamera Randall on 10-25-2022 Neutrophils/100 WBC (Bld) 58.9 % . [facility] No Panel InformationOrdered By: Tamera Randall on 10-25-2022 Estimated GFR (CKD-EPI) > 60.0 mL/Min [facility] Creatinine Clearance (Chem N/A [facility] Nucleated erythrocytes [Pres ence] in Blood by Automated countOrdered By: Tamera Randall on 10-25-2022 Nucleated RBC Auto Ql (Bld) 0.2 /100{WBC} 0-0.5 [facility] Platelet mean volume Auto (B ld) [Entitic vol]Ordered By: Tamera Randall on 10-25-2022 Platelet mean volume (Bld) [Entitic vol] 8.6 fL 6.3-10.7 [facility] Platelets Auto (Bld) [#/Vol] Ordered By: Tamera Randall on 10-25-2022 Platelets (Bld) [#/Vol] 266 10*3/uL 150-450 [facility] Potassium [Moles/volume] in Serum or PlasmaOrdered By: Tamera Randall on 10-25-2022 Potassium [Moles/Vol] 4.1 mmol/L 3.5-5.1 [facility] Protein [Mass/volume] in Ser um or PlasmaOrdered By: Tamera Randall on 10-25-2022 Protein [Mass/Vol] 6.9 g/dL 6.4-8.9 [facility] RBC Auto (Bld) [#/Vol]Ordere d By: Tamera Randall on 10-25-2022 RBC (Bld) [#/Vol] 3.99 10*6/uL 3.60-5.00 [facility] Serum or plasma albumin/glob ulin mass ratioOrdered By: Tamera Randall on 10-25-2022 Albumin/Globulin [Mass ratio] 1.8 {ratio} [facility] Serum or plasma anion gap de terminationOrdered By: Tamera Randall on 10-25-2022 Anion gap [Moles/Vol] 12.1 mmol/L 6.0-15.0 [facility] Sodium [Moles/volume] in Ser um or PlasmaOrdered By: Tamera Randall on 10-25-2022 Sodium [Moles/Vol] 133 mmol/L 136-145 [facility] Urea nitrogen [Mass/volume] in Serum or PlasmaOrdered By: Tamera Randall on 10-25-2022 Urea nitrogen [Mass/Vol] 15 mg/dL 01-28 [facility] WBC Auto (Bld) [#/Vol]Ordere d By: Tamera Randall on 10-25-2022 WBC (Bld) [#/Vol] 4.9 10*3/uL 3.8-11.6 [facility] XR Knee Complete Right*on XR Knee Complete Right* HISTORY: Posteri or knee pain with redness and swelling. COMPARISON: Radiograph 01/21/2019 TECHNIQUE: AP, lateral, and oblique views. FINDINGS: No acute fracture or dislocation. Joint spaces are maintained. Small joint effusion. Soft tissues are within normal limits. IMPRESSION: No acute osseous abnormality. Report reported and signed by Juan Wan on 07/19/2022 1225 Normal [facility] Applications Analyst VITAMIN D 25 OHon 07-15-2022 VIT D 25-OH 55.7 ng/mL Normal [facility] Comment on above: Performed By: #### V ITAD #### [facility] [address] [address] [address] Aniceto Elizondo VIT D RANGES SEE BELOW Normal [facility] Comment on above: Result Comment: <20 ng/mL Vit D deficient 20 - <30 ng/mL Vit D insufficient 30 - 100 ng/mL Vit D sufficient >100 ng/mL Potential Toxicity Performed By: #### V ITAD #### [facility] [address] [address] [address] Aniceto Elizondo Albumin [Mass/volume] in Ser um or PlasmaOrdered By: Tamera Randall on 04-25-2022 Albumin [Mass/Vol] 4.0 g/dL 3.2-5.5 [facility] Basophils Auto (Bld) [#/Vol] Ordered By: Tamera Randall on 04-25-2022 Basophils (Bld) [#/Vol] 0.1 10*3/uL 0.0-0.2 [facility] Basophils/100 WBC Auto (Bld) Ordered By: Tamera Randall on 04-25-2022 Basophils/100 WBC (Bld) 1.1 % . [facility] Creatinine and Glomerular fi ltration rate.predicted panel (S/P/Bld)Ordered By: Tamera Randall on 04-25-2022 Creatinine [Mass/Vol] 0.64 mg/dL 0.44-1.03 [facility] Eosinophils Auto (Bld) [#/Vo l]Ordered By: Tamera Randall on 04-25-2022 Eosinophils (Bld) [#/Vol] 0.2 10*3/uL 0.0-0.45 [facility] Eosinophils/100 WBC Auto (Bl d)Ordered By: Tamera Randall on 04-25-2022 Eosinophils/100 WBC (Bld) 2.9 % . [facility] Erythrocyte distribution wid th Auto (RBC) [Ratio]Ordered By: Tamera Randall on 04-25-2022 Erythrocyte distribution width (RBC) [Ratio] 13.6 % 11.9-15.3 [facility] Erythrocyte sedimentation ra te by Photometric methodOrdered By: Tamera Randall on 04-25-2022 ESR Photometric method (Bld) [Velocity] 21 mm/hr 0-29 [facility] Estimated glomerular filtrat ion rate (GFR) non- AmericanOrdered By: Tamera Randall on 04-25-2022 GFR/1.73 sq M.predicted among non-blacks MDRD (S/P/Bld) [Vol rate/Area] > 60 mL/Min [facility] Globulin Calc (S) [Mass/Vol] Ordered By: Tamera Randall on 04-25-2022 Globulin (S) [Mass/Vol] 2.7 g/dL [facility] Hematocrit Auto (Bld) [Volum e fraction]Ordered By: Tamera Randall on 04-25-2022 Hematocrit (Bld) [Volume fraction] 35.1 % 34.0-46.4 [facility] Hemoglobin [Mass/volume] in BloodOrdered By: Tamera Randall on 04-25-2022 Hemoglobin (Bld) [Mass/Vol] 11.9 g/dL 11.8-15.4 [facility] - Hematology and Cell countsOrdered By: Tamera Randall on 04-25-2022 Nucleated RBC/100 WBC (Bld) [Ratio] 0.1 % 0-0.5 [facility] Leukocytes [#/volume] in Blo od by Automated countOrdered By: Tamera Randall on 04-25-2022 WBC (Bld) [#/Vol] 5.6 10*3/uL 4.5-11.0 [facility] Lymphocytes Auto (Bld) [#/Vo l]Ordered By: Tamera Randall on 04-25-2022 Lymphocytes (Bld) [#/Vol] 1.7 10*3/uL 1.00-4.8 [facility] Lymphocytes/100 WBC Auto (Bl d)Ordered By: Tamera Randall on 04-25-2022 Lymphocytes/100 WBC (Bld) 29.8 % . [facility] MCH Auto (RBC) [Entitic mass ]Ordered By: Tamera Randall on 04-25-2022 MCH (RBC) [Entitic mass] 30.7 pg 24.7-34.3 [facility] MCHC Auto (RBC) [Mass/Vol]Or dered By: Tamera Randall on 04-25-2022 MCHC (RBC) [Mass/Vol] 33.9 g/dL 32.0-35.0 [facility] MCV Auto (RBC) [Entitic vol] Ordered By: Tamera Randall on 04-25-2022 MCV (RBC) [Entitic vol] 90.6 fL 80-100 [facility] Monocytes Auto (Bld) [#/Vol] Ordered By: Tamera Randall on 04-25-2022 Monocytes (Bld) [#/Vol] 0.5 10*3/uL 0.0-0.8 [facility] Monocytes/100 WBC Auto (Bld) Ordered By: Tamera Randall on 04-25-2022 Monocytes/100 WBC (Bld) 8.4 % . [facility] Neutrophils Auto (Bld) [#/Vo l]Ordered By: Tamera Randall on 04-25-2022 Neutrophils (Bld) [#/Vol] 3.2 10*3/uL 1.8-7.7 [facility] Neutrophils/100 WBC Auto (Bl d)Ordered By: Tamera Randall on 04-25-2022 Neutrophils/100 WBC (Bld) 57.8 % . [facility] No Panel InformationOrdered By: Tamera Randall on 04-25-2022 Estimated GFR () > 60 mL/Min [facility] Comment on above: GFR estimated refere nce range: According to KDOQI guidelines, <60 ml/min/1.73m2 is sufficient to diagnose a patient with chronic kidney disease. Pharmacy Creatinine Clearance (Chem N/A [facility] Platelet mean volume Auto (B ld) [Entitic vol]Ordered By: Tamera Randall on 04-25-2022 Platelet mean volume (Bld) [Entitic vol] 8.7 fL 6.3-10.7 [facility] Platelets Auto (Bld) [#/Vol] Ordered By: Tamera Randall on 04-25-2022 Platelets (Bld) [#/Vol] 353 10*3/uL 150-450 [facility] Protein [Mass/volume] in Ser um or PlasmaOrdered By: Tamera Randall on 04-25-2022 Protein [Mass/Vol] 6.7 g/dL 6.1-7.9 [facility] RBC Auto (Bld) [#/Vol]Ordere d By: Tamera Randall on 04-25-2022 RBC (Bld) [#/Vol] 3.87 10*6/uL 3.60-5.00 [facility] Serum or plasma alanine craig otransferase measurement without P-5'-P (enzymatic activiOrdered By: Tamera Randall on 04-25-2022 ALT No additional P-5'-P [Catalytic activity/Vol] 23 U/L 10-60 [facility] Serum or plasma albumin/glob ulin mass ratioOrdered By: Tamera Randall on 04-25-2022 Albumin/Globulin [Mass ratio] 1.5 {ratio} [facility] Serum or plasma alkaline lakisha sphatase measurement (enzymatic activity/volume)Ordered By: Tamera Randall on 04-25-2022 ALP [Catalytic activity/Vol] 72 U/L 32-92 [facility] Serum or plasma anion gap de terminationOrdered By: Tamera Randall on 04-25-2022 Anion gap [Moles/Vol] 14.0 mmol/L 6.0-15.0 [facility] Serum or plasma aspartate am inotransferase measurement (enzymatic activity/volume)Ordered By: Tamera Randall on 04-25-2022 AST [Catalytic activity/Vol] 26 U/L 10 [facility] Serum or plasma calcium yvonne urement (mass/volume)Ordered By: Tamera Randall on 04-25-2022 Calcium [Mass/Vol] 9.8 mg/dL 8.2-10.2 [facility] Serum or plasma chloride elpidio surement (moles/volume)Ordered By: Tamera Randall on 04-25-2022 Chloride [Moles/Vol] 95 mmol/L 95-114 [facility] Serum or plasma glucose yvonne urement (mass/volume)Ordered By: Tamera Randall on 04-25-2022 Glucose [Mass/Vol] 92 mg/dL 70-100 [facility] Comment on above: ADA recommended refe rence rangeRandom Glucose Reference Range is dependent on time and content of last meal. Glucose of more than 200 mg/dL in a nonstressed, ambulatory subject supports the diagnosis of Diabetes Mellitus. Serum or plasma potassium me asurement (moles/volume)Ordered By: Tamera Randall on 04-25-2022 Potassium [Moles/Vol] 4.6 mmol/L 3.5-5.1 [facility] Serum or plasma sodium measu rement (moles/volume)Ordered By: Tamera Randall on 04-25-2022 Sodium [Moles/Vol] 130 mmol/L 136-146 [facility] Serum or plasma total biliru bin measurement (mass/volume)Ordered By: Tamera Randall on 04-25-2022 Bilirubin [Mass/Vol] 0.7 mg/dL 0.3-1.2 [facility] Serum or plasma total carbon dioxide measurement (moles/volume)Ordered By: Tamera Randall on 04-25-2022 CO2 [Moles/Vol] 25.6 mmol/L 22.0-30.0 [facility] Serum or plasma urea nitroge n measurement (mass/volume)Ordered By: Tamera Randall on 04-25-2022 Urea nitrogen [Mass/Vol] 13 mg/dL 03-[address] [facility] [address] Abdomen/Pelvis w/ Contras ton 04-17-2022 [...] by Ky Carvalho on 04/17/2022 1540 Normal [facility] Applications Analyst XR Abdomen 2 Viewson XR Abdomen 2 Views HISTORY: Constipation. Pain. [...] by Juan Wan on 04/10/2022 1614 Normal [facility] Specialist Covid-19 PCR (CVDTBH)on 02-05 SARS-CoV-2 (COVID-19) RNA NICOLASA+probe Ql (Unsp spec) Not detected Normal NOT DETECTED [facility] Comment on above: Result Comment: This test is not yet approved or cleared by the [place] FDA. When there are no FDA-approved or cleared tests available, and other criteria are met, FDA can make tests available under an emergency access mechanism called an Emergency Use Authorization (EUA). The EUA for this test is supported by the [employer] Assistant of Health and Human Service's (HHS's) declaration [...] SARS-CoV-2. Performed By: #### C VDTB #### [facility] [address] [place] [id number] [address] Aniceto Elizondo LIPID PROFILEon 02-11-2022 CHOL-HDL RATIO NORM SEE BELOW Normal [facility] Comment on above: Result Comment: 3.3 - 4.4 LOW RISK 4.4 - 7.1 AVERAGE RISK 7.1 - 11.0 MODERATE RISK >11.0 HIGH RISK Performed By: #### L IPID, CMP #### [facility] [address] [address] [address] Aniceto Elizondo Cholesterol [Mass/Vol] 179 mg/dL Normal <=200 [facility] Comment on above: Performed By: #### L IPID, CMP #### [facility] [address] [address] [address] Aniceto Elizondo Cholesterol in HDL [Mass/Vol] 44 mg/dL Normal 40-60 [facility] Comment on above: Performed By: #### L IPID, CMP #### [facility] [facility] [address] [address] [address] Aniceto Elizondo Cholesterol in LDL [Mass/Vol] 94.2 mg/dL Normal [facility] Comment on above: Performed By: #### L IPID, CMP #### [facility] [address] [place] [address] Dr. Aniceto Elizondo Cholesterol.total/Joselyn sterol in HDL [Mass ratio] 4.1 {ratio} Normal [facility] Comment on above: Performed By: #### L IPID, CMP #### [facility] [address] [address] [address] Aniceto Elizondo HDL NORMAL > or = 60 mg/dl - LO W CARDIOVASCULAR RISK <40 mg/dl - HIGH CARDIOVASCULAR RISK Normal [facility] Comment on above: Performed By: #### L IPID, CMP #### [facility] [address] [place] [address] Dr. Aniceto Elizondo LDL CALC NORMAL SEE BELOW Normal [facility] Comment on above: Result Comment: <100 mg/dl OPTIMAL 100 - 129 mg/dl NEAR OR ABOVE OPTIMAL 130 - 159 mg/dl BORDERLINE HIGH 160 - 189 mg/dl HIGH >190 mg/dl VERY HIGH Performed By: #### L IPID, CMP #### [facility] [address] [place] [address] Dr. Aniceto Elizondo Triglyceride [Mass/Vol] 204 mg/dL Critically high <=150 [facility] Comment on above: Performed By: #### L IPID, CMP #### [facility] [address] [place] [address] Dr. Aniceto Elizondo VLDL CALC 40.8 mg/dL Normal [facility] Comment on above: Performed By: #### L IPID, CMP #### [facility] [address] [place] [address] Dr. Aniceto Elizondo PROF 14(COMP METB)on 022 Albumin [Mass/Vol] 3.8 g/dL Normal 3.4-5.0 [facility] Comment on above: Performed By: #### L IPID, CMP #### [facility] [address] [place] [address] Dr. Aniceto Elizondo Albumin/Globulin [Mass ratio] 1.0 {ratio} Normal [facility] Comment on above: Performed By: #### L IPID, CMP #### [facility] [address] [place] [address] Dr. Aniceto Elizondo ALP [Catalytic activity/Vol] 76 U/L Normal 46-116 [facility] Comment on above: Performed By: #### L IPID, CMP #### [facility] [address] [place] [address] Dr. Aniceto Elizondo ALT [Catalytic activity/Vol] 24 U/L Normal 14-59 [facility] Comment on above: Performed By: #### L IPID, CMP #### [facility] [address] [place] [address] Dr. Aniceto Elizondo Anion gap [Moles/Vol] 14.2 mmol/L Normal [facility] Comment on above: Performed By: #### L IPID, CMP #### [facility] [address] [place] [address] Dr. Aniceto Elizondo AST [Catalytic activity/Vol] 25 U/L Normal 15-37 [facility] Comment on above: Performed By: #### L IPID, CMP #### [facility] [address] [place] [address] Dr. Aniceto Elizondo Bilirubin [Mass/Vol] 0.6 mg/dL Normal 0.2-1.0 [facility] Comment on above: Performed By: #### L IPID, CMP #### [facility] [address] [address] [address] Aniceto Elizondo Calcium [Mass/Vol] 9.1 mg/dL Normal 8.5-10.1 [facility] Comment on above: Performed By: #### L IPID, CMP #### [facility] [address] [address] [address] Aniceto Elizondo Chloride [Moles/Vol] 99 mmol/L Normal 98-107 [facility] Comment on above: Performed By: #### L IPID, CMP #### [facility] [address] [address] [address] Aniceto Elizondo CO2 [Moles/Vol] 28.3 mmol/L Normal 21.0-32.0 [facility] Comment on above: Performed By: #### L IPID, CMP #### [facility] [address] [place] [address] Dr. Aniceto Elizondo Creatinine [Mass/Vol] 0.64 mg/dL Normal 0.55-1.02 [facility] Comment on above: Performed By: #### L IPID, CMP #### [facility] [address] [address] [address] Ancieto Elizondo EGFR-AF [place] >60 Normal >=60 [facility] Comment on above: Performed By: #### L IPID, CMP #### [facility] [address] [place] [address] Dr. Aniceto Elizondo EGFR-NON AF [place] >60 Normal >=60 [facility] Comment on above: Performed By: #### L IPID, CMP #### [facility] [address] [address] [address] Aniceto Elizondo Globulin (S) [Mass/Vol] 3.7 g/dL Normal [facility] Comment on above: Performed By: #### L IPID, CMP #### [facility] [address] [address] [address] Aniceto Elizondo Glucose [Mass/Vol] 102 mg/dL Normal 74-106 [facility] Comment on above: Performed By: #### L IPID, CMP #### [facility] [address] [place] [address] Dr. Aniceto Elizondo Potassium [Moles/Vol] 4.5 mmol/L Normal 3.5-5.1 [facility] Comment on above: Performed By: #### L IPID, CMP #### [facility] [address] [place] [address] Dr. Aniceto Elizondo Protein [Mass/Vol] 7.5 g/dL Normal 6.4-8.2 [facility] Comment on above: Performed By: #### L IPID, CMP #### [facility] [address] [place] [address] Dr. Aniceto Elizondo Sodium [Moles/Vol] 137 mmol/L Normal 136-145 [facility] Comment on above: Performed By: #### L IPID, CMP #### [facility] [address] [place] [address] Dr. Aniceto Elizondo Urea nitrogen [Mass/Vol] 12.0 mg/dL Normal 7.0-18.0 [facility] Comment on above: Performed By: #### L IPID, CMP #### [facility] [address] [place] [address] Dr. Aniceto Elizondo Urea nitrogen/Creatinine [Mass ratio] 18.8 mg/mg Normal [facility] Comment on above: Performed By: #### L IPID, CMP #### [facility] [address] [place] [address] Dr. Aniceto Elizondo COVID-19 SOFIAOrdered By: Maritza Gutierrez on 01-29-2022 SARS-CoV+SARS-CoV-2 (COVID-19) Ag IA.rapid Ql (Resp) Negative Negative [facility] Comment on above: This is a duplicate Michelle SARS Antigen (DUNG) result to be used for statistical tracking purpose only. No Panel InformationOrdered By: Jordan Gutierrez on 01-29-2022 SARS Antigen (LFIA) [facility] HEMOGRAM AND PLATELon 2021 Hematocrit (Bld) [Volume fraction] 34.5 % Critically low 36.0-48.0 [facility] Comment on above: Performed By: #### H H #### [facility] [address] [place] [address] Dr. Aniceto Elizondo Hemoglobin (Bld) [Mass/Vol] 11.6 g/dL Critically low 12.0-16.0 [facility] Comment on above: Performed By: #### H H #### [facility] [address] [place] [address] Dr. Aniceto Elizondo MCH (RBC) [Entitic mass] 30.9 pg Normal 26.7-34.0 [facility] Comment on above: Performed By: #### H H #### [facility] [address] [place] [address] Dr. Aniceto Elizondo MCHC (RBC) [Mass/Vol] 33.6 g/dL Normal 29.9-35.2 [facility] Comment on above: Performed By: #### H H #### [facility] [address] [place] [address] Dr. Aniceto Elizondo MCV (RBC) [Entitic vol] 91.8 fL Normal 81.0-99.0 [facility] Comment on above: Performed By: #### H H #### [facility] [address] [place] [address] Dr. Aniceto Elizondo PLT 294 103/ul Normal 150-450 [facility] Comment on above: Performed By: #### H H #### [facility] [address] [place] [address] Dr. Aniceto Elizondo RBC 3.76 106/ul Critically low 4.20-5.40 [facility] Comment on above: Performed By: #### H H #### [facility] [address] [place] [address] Dr. Aniceto Elizondo WBC 6.0 103/ul Normal 4.0-11.0 [facility] Comment on above: Performed By: #### H H #### [facility] [address] [place] [address] Dr. Aniceto Elizondo MAGNESIUMon 11-21-2021 Magnesium [Mass/Vol] 2.2 mg/dL Normal 1.8-2.4 [facility] Comment on above: Performed By: #### U RAMON, RENAL, MG #### [facility] [address] [address] [address] Aniceto Elizondo RENAL FUNCTION PANELon 11-21 Albumin [Mass/Vol] 3.8 g/dL Normal 3.4-5.0 [facility] Comment on above: Performed By: #### U RAMON, RENAL, MG #### [facility] [address] [place] [address] Dr. Aniceto Elizondo Calcium [Mass/Vol] 8.9 mg/dL Normal 8.5-10.1 [facility] Comment on above: Performed By: #### U RAMON, RENAL, MG #### [facility] [address] [place] [address] Dr. Aniceto Elizondo Chloride [Moles/Vol] 97 mmol/L Critically low 98-107 [facility] Comment on above: Performed By: #### U RAMON, RENAL, MG #### [facility] [address] [place] [address] Dr. Aniceto Elizondo CO2 [Moles/Vol] 27.1 mmol/L Normal 21.0-32.0 [facility] Comment on above: Performed By: #### U RAMON, RENAL, MG #### [facility] [address] [place] [address] Dr. Aniceto Elizondo Creatinine [Mass/Vol] 0.66 mg/dL Normal 0.55-1.02 [facility] Comment on above: Performed By: #### U RAMON, RENAL, MG #### [facility] [address] [place] [address] Dr. Aniceto Elizondo EGFR-AF [place] >60 Normal >=60 [facility] Comment on above: Performed By: #### U RAMON, RENAL, MG #### [facility] [address] [place] [address] Dr. Aniceto Elizondo EGFR-NON AF [place] >60 Normal >=60 [facility] Comment on above: Performed By: #### U RAMON, RENAL, MG #### [facility] [address] [place] [address] Dr. Aniceto Elizondo Glucose [Mass/Vol] 101 mg/dL Normal 74-106 [facility] Comment on above: Performed By: #### U RAMON, RENAL, MG #### [facility] [address] [address] [address] Aniceto Elizondo Phosphate [Mass/Vol] 4.1 mg/dL Normal 2.6-4.7 [facility] Comment on above: Performed By: #### U RAMON, RENAL, MG #### [facility] [address] [address] [address] Aniceto Elizondo Potassium [Moles/Vol] 4.5 mmol/L Normal 3.5-5.1 [facility] Comment on above: Performed By: #### U RAMON, RENAL, MG #### [facility] [address] [place] [address] Dr. Aniceto Elizondo Sodium [Moles/Vol] 131 mmol/L Critically low 136-145 [facility] Comment on above: Performed By: #### U RAMON, RENAL, MG #### [facility] [address] [place] [address] Dr. Aniceto Elizondo Urea nitrogen [Mass/Vol] 16.0 mg/dL Normal 7.0-18.0 [facility] Comment on above: Performed By: #### U RAMON, RENAL, MG #### [facility] [address] [place] [address] Dr. Aniceto Elizondo UA RANDOM W/MICROSCOPICon BACTERIA NONE SEEN Normal NONE SEEN [facility] Comment on above: Performed By: #### U AMIC #### [facility] [address] [place] [address] Dr. Aniceto Elizondo Bilirubin Ql (U) Negative Normal NEGATIVE [facility] Comment on above: Performed By: #### U AMIC #### [facility] [address] [place] [address] Dr. Aniceto Elizondo CAST NONE SEEN Normal NONE SEEN [facility] Comment on above: Performed By: #### U AMIC #### [facility] [address] [place] [address] Dr. Aniceto Elizondo Clarity (U) CLEAR Normal CLEAR [facility] Comment on above: Performed By: #### U AMIC #### [facility] [address] [address] [address] Aniceto Elizondo Color (U) YELLOW Normal YELLOW [facility] Comment on above: Performed By: #### U AMIC #### [facility] [address] [address] [address] Aniceto Elizondo Crystals LM Nom (Urine sed) NONE SEEN Normal NONE SEEN [facility] Comment on above: Performed By: #### U AMIC #### [facility] [address] [address] [address] Aniceto Elizondo Epithelial cells LM Ql (Urine sed) FEW Abnormal NONE SEEN /RARE [facility] Comment on above: Performed By: #### U AMIC #### [facility] [address] [address] [address] Aniceto Elizondo Glucose Ql (U) Negative Normal NEGATIVE [facility] Comment on above: Performed By: #### U AMIC #### [facility] [address] [address] [address] Aniceto Elizondo Hemoglobin Ql (U) Negative Normal NEGATIVE [facility] Comment on above: Performed By: #### U AMIC #### [facility] [address] [address] [address] Aniceto Elizondo Ketones Ql (U) Negative Normal NEGATIVE [facility] Comment on above: Performed By: #### U AMIC #### [facility] [address] [address] [address] Aniceto Elizondo LEUKOCYTES Negative Normal NEGATIVE [facility] Comment on above: Performed By: #### U AMIC #### [facility] [address] [address] [address] Aniceto Elizondo MUCOUS NONE SEEN Normal NONE SEEN [facility] Comment on above: Performed By: #### U AMIC #### [facility] [address] [address] [address] Aniceto Elizondo Nitrite Ql (U) Negative Normal NEGATIVE [facility] Comment on above: Performed By: #### U AMIC #### [facility] [address] [address] [address] Aniceto Elizondo pH (U) 7.0 [pH] Normal 5-9 [facility] Comment on above: Performed By: #### U AMIC #### [facility] [address] [place] [address] Dr. Aniceto Elizondo RBC NONE SEEN Abnormal 0-2 [facility] Comment on above: Performed By: #### U AMIC #### [facility] [address] [address] [address] Aniceto Elizondo SPEC GRAVITY <=1.005 Abnormal 1.005-<=1.02 5 [facility] Comment on above: Performed By: #### U AMIC #### [facility] [address] [place] [address] Dr. Aniceto Elizondo UA PROTEIN Negative Normal NEGATIVE/ TRACE [facility] Comment on above: Performed By: #### U AMIC #### [facility] [address] [place] [address] Dr. Aniceto Elizondo Urobilinogen Qn (U) 0.2 {Ada'U}/dL Normal 0.2 - 1. 0 [facility] Comment on above: Performed By: #### U AMIC #### [facility] [address] [place] [address] Dr. Aniceto Elizondo WBC NONE SEEN Normal NONE SEEN [facility] Comment on above: Performed By: #### U AMIC #### [facility] [address] [place] [address] Dr. Aniceto Elizondo URIC ACID SERUMon 11-21-2021 Urate [Mass/Vol] 3.4 mg/dL Normal 2.6-6.0 [facility] Comment on above: Performed By: #### U RAMON, RENAL, MG #### [facility] [address] [place] [address] Dr. Aniceto Elizondo URINE T PROTEIN CREAT RATIOo n 11-21-2021 UR PROT CREAT RAT 0.40 Normal [facility] Comment on above: Performed By: #### U RTPCR #### [facility] [address] [place] [address] Dr. Aniceto Elizondo UR TOTAL PROTEIN <6.0 Normal <=12.0 [facility] Comment on above: Performed By: #### U RTPCR #### [facility] [address] [address] [address] Aniceto Elizondo URINE CREAT 14.89 mg/dL Critically low 20.00-300.00 [facility] Comment on above: Performed By: #### U RTPCR #### [facility] [address] [address] [address] Aniceto Elizondo VITAMIN D 25 OHon 11-21-2021 VIT D 25-OH 50.4 ng/mL Normal [facility] Comment on above: Performed By: #### V ITAD #### [facility] [address] [place] [address] Dr. Aniceto Elizondo VIT D RANGES SEE BELOW Normal [facility] Comment on above: Result Comment: <20 ng/mL Vit D deficient 20 - <30 ng/mL Vit D insufficient 30 - 100 ng/mL Vit D sufficient >100 ng/mL Potential Toxicity Performed By: #### V ITAD #### [facility] [address] [place] [address] Dr. Aniceto Elizondo CNOVon 05-03-2021 RACIEL Office Visit (KANDACE ) SARI ABBASI ([id number]) 1950 F Date Time Provider Department 05/03/21 11:30 AM JOSE G WELLS During your visit today, we recorded the following information about you: Pulse Blood pressure 83/minute 182/94 Jose G Wells MD 05/04/2021 10:18 AM Unsigned Chief Engineer Production NAME: SARI ABBASI CLINIC NO: [id number] DATE OF SERVICE: 05/03/2021 DATE OF : [...] She has had an ultrasound done at [facility] that was done in February which still [...] Jose G Wells M.D. 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 THIS DOCUMENT IS NOT AVAILABLE FOR PATIENT CARE * * * Document text: NAME: SARI ABBASI CLINIC NO: [id number] DATE OF SERVICE: 05/03/2021 DATE OF : 1950 She is here to see me in follow-up for a le (more content not included)... Normal [facility] CNPNon 02-22-2021 CNPN Telephone (PODCCP) SARI ABBASI ([id number]) 1950 F Date Time Provider Department 02/22/21 [facility] During your visit today, we recorded the following information about you: Shirley Arguetaroldan 02/22/2021 2:43 PM Signed Reason for call: Mrs Abbasi called and she would like to schedule a follow up appointment with DR Wells , last seen 04/26/2019. Home and cell number : [phone] Diagnosis Renal Artery stenosis Kind Regards, Shirley Stewardclaudia Moratayaa Alyssa Coord 02/23/2021 5:13 PM Signed Sari Abbasi appointments have been scheduled accordingly. Patient has been notified via telephone and Dimdimhart and appointment schedule sent via US Mail [...] Status:Closed by SHIRLEY SHAY on 02/22/21 Normal [facility] Albumin [Mass/volume] in Ser um or Plasmaon 07-05-2020 Albumin [Mass/Vol] 4.2 g/dL 3.2-5.5 [facility] Automated basophil %on 07-05 Basophils/100 WBC (Bld) 0.6 % [facility] Automated basophil counton 1 Basophils (Bld) [#/Vol] 0.0 10*3/uL 0.0-0.2 [facility] Automated blood lymphocyte c ount (number/volume)on 07-05-2020 Lymphocytes (Bld) [#/Vol] 1.2 10*3/uL 1.00-4.8 [facility] Automated blood lymphocyte c ount as percentage of total leukocyteson 07-05-2020 Lymphocytes/100 WBC (Bld) 16.6 % [facility] Automated blood monocyte cou nton 07-05-2020 Monocytes (Bld) [#/Vol] 0.4 10*3/uL 0.0-0.8 [facility] Automated blood platelet cou nt (count/volume)on 07-05-2020 Platelets (Bld) [#/Vol] 282 10*3/uL 150-450 [facility] Automated blood platelet elpidio n volume measurementon 07-05-2020 Platelet mean volume (Bld) [Entitic vol] 8.7 fL 6.3-10.7 [facility] Automated eosinophil %on Eosinophils/100 WBC (Bld) 0.4 % [facility] Automated eosinophil counton 07-05-2020 Eosinophils (Bld) [#/Vol] 0.0 10*3/uL 0.0-0.45 [facility] Automated erythrocyte distri bution width ratioon 07-05-2020 Erythrocyte distribution width (RBC) [Ratio] 13.7 % 11.9-15.3 [facility] Automated erythrocyte mean c orpuscular hemoglobin (mass per erythrocyte)on 07-05-2020 MCH (RBC) [Entitic mass] 30.2 pg 24.7-34.3 [facility] Automated erythrocyte mean c orpuscular hemoglobin concentration measurement (mass/volon 07-05-2020 MCHC (RBC) [Mass/Vol] 33.1 g/dL 32.0-35.0 [facility] Automated erythrocyte mean c orpuscular volumeon 07-05-2020 MCV (RBC) [Entitic vol] 91.1 fL 80-100 F [facility] Automated monocyte %on 07-05 Monocytes/100 WBC (Bld) 5.3 % F [facility] Automated neutrophil %on Neutrophils/100 WBC (Bld) 77.1 % [facility] Blood erythrocytes automated count (number/volume)on 07-05-2020 RBC (Bld) [#/Vol] 3.94 10*6/uL 3.60-5.00 [facility] Blood hemoglobin measurement (mass/volume)on 07-05-2020 Hemoglobin (Bld) [Mass/Vol] 11.9 g/dL 11.8-15.4 [facility] Blood leukocytes automated c ount (number/volume)on 07-05-2020 WBC (Bld) [#/Vol] 7.1 10*3/uL 4.5-11.0 [facility] Blood neutrophil count by au tomated method (number/volume)on 07-05-2020 Neutrophils (Bld) [#/Vol] 5.4 10*3/uL 1.8-7.7 [facility] Cholesterol [Mass/volume] in Serum or Plasmaon 07-05-2020 Cholesterol [Mass/Vol] 173 mg/dL 140-200 [facility] Comment on above: Chol less than 200 m g/dl low riskChol 201-239 mg/dl borderline riskChol 240 mg/dl and greater high risk Cholesterol in LDL [Mass/vol ume] in Serum or Plasma by calculationon 07-05-2020 Cholesterol in LDL [Mass/Vol] 93 mg/dL 0-100 [facility] [facility] Comment on above: LDL ATP III CLASSIFI CATIONLDL less than 100 mg/dL OptimalLDL 100-129 mg/dL Near or above optimalLDL 130-159 mg/dL Borderline highLDL 160-189 mg/dL HighLDL greater than 189 mg/dL Very high Cholesterol in VLDL [Mass/vo lume] in Serum or Plasma by calculationon 07-05-2020 Cholesterol in VLDL [Mass/Vol] 17 mg/dL [facility] Erythrocyte sedimentation ra te by Photometric methodon 07-05-2020 ESR Photometric method (Bld) [Velocity] 19 mm/hr 0-29 [facility] Estimated glomerular filtrat ion rate (GFR) non- Americanon 07-05-2020 GFR/1.73 sq M predicted among non-blacks MDRD (S/P/Bld) [Vol rate/Area] mL/min/{1.73_m2} [facility] Hematocrit [Volume Fraction] of Blood by Automated counton 07-05-2020 Hematocrit (Bld) [Volume fraction] 35.9 % 34.0-46.4 [facility] Otheron 07-05-2020 GFR/1.73 sq M.predicted MDRD (S/P/Bld) [Vol rate/Area] mL/min/{1.73_m2} [facility] Comment on above: GFR estimated refere nce range: According to KDOQI guidelines, <60 ml/min/1.73m2 is sufficient to diagnose a patient with chronic kidney disease. Nucleated RBC/100 WBC (Bld) [Ratio] 0.0 % 0-0.5 [facility] Creatinine Clearance (Chem N/A [facility] Protein [Mass/volume] in Ser um or Plasmaon 07-05-2020 Protein [Mass/Vol] 7.2 g/dL 6.1-7.9 [facility] Serum globulin measurement b y calculation (mass/volume)on 07-05-2020 Globulin (S) [Mass/Vol] 3.0 g/dL F [facility] Serum or plasma alanine craig otransferase measurement without P-5'-P (enzymatic activion 07-05-2020 ALT No additional P-5'-P [Catalytic activity/Vol] 23 U/L 1060 [facility] Serum or plasma albumin/glob ulin mass ratioon 07-05-2020 Albumin/Globulin [Mass ratio] 1.4 {ratio} [facility] Serum or plasma alkaline lakisha sphatase measurement (enzymatic activity/volume)on 07-05-2020 ALP [Catalytic activity/Vol] 63 U/L 32-92 [facility] Serum or plasma aspartate am inotransferase measurement (enzymatic activity/volume)on 07-05-2020 AST [Catalytic activity/Vol] 27 U/L 10-42 [facility] Serum or plasma calcium yvonne urement (mass/volume)on 07-05-2020 Calcium [Mass/Vol] 9.4 mg/dL 8.2-10.2 [facility] Serum or plasma chloride elpidio surement (moles/volume)on 07-05-2020 Chloride [Moles/Vol] 96 mmol/L 95-114 [facility] Serum or plasma creatinine m easurement with calculation of estimated glomerular filtron 07-05-2020 Creatinine [Mass/Vol] 0.64 mg/dL 0.44-1.03 [facility] Serum or plasma glucose yvonne urement (mass/volume)on 07-05-2020 Glucose [Mass/Vol] 114 mg/dL 70-100 [facility] Comment on above: ADA recommended refe rence rangeRandom Glucose Reference Range is dependent on time and content of last meal. Glucose of more than 200 mg/dL in a nonstressed, ambulatory subject supports the diagnosis of Diabetes Mellitus. Serum or plasma high density lipoprotein (HDL) cholesterol measurementon 07-05-2020 Cholesterol in HDL [Mass/Vol] 63 mg/dL 35-85 [facility] Comment on above: HDL CHOL ATP-III CLA SSIFICATION Cardiovascular RiskHDL > or equal to 60 mg/dL LOWHDL < 40 mg/dL HIGH Serum or plasma potassium me asurement (moles/volume)on 07-05-2020 Potassium [Moles/Vol] 3.9 mmol/L 3.5-5.1 [facility] Serum or plasma sodium measu rement (moles/volume)on 07-05-2020 Sodium [Moles/Vol] 131 mmol/L 136-146 [facility] Serum or plasma total biliru bin measurement (mass/volume)on 07-05-2020 Bilirubin [Mass/Vol] 0.6 mg/dL 0.3-1.2 [facility] Serum or plasma total carbon dioxide measurement (moles/volume)on 07-05-2020 CO2 [Moles/Vol] 24.3 mmol/L 22.0-30.0 [facility] Serum or plasma total choles terol/high density lipoprotein (HDL) cholesterol mass ashok 07-05-2020 Cholesterol.total/Joselyn sterol in HDL [Mass ratio] 2.7 {ratio} [facility] Serum or plasma urea nitroge n measurement (mass/volume)on 07-05-2020 Urea nitrogen [Mass/Vol] 15 mg/dL 9- [facility] Triglyceride [Mass/volume] i n Serum or Plasmaon 07-05-2020 Triglyceride [Mass/Vol] 86 mg/dL 35-149 F [facility] Comment on above: TRIG ATP III CLASSIF ICATIONTRIG less than 150 mg/dL NormalTRIG 150-199 mg/dL Borderline highTRIG 200-500 mg/dL High TRIG greater than 500 mg/dL Very highStandard traceable to the Center for Disease Conrtrol and Prevention (CDC) test method. Coding Summary.on 06-19-2018 Coding Summary. CODING DATE: 06/19/2018 [facility] DSC STATUS: Home (Routine DC) PAYOR: Medicare [...] Jain Revised Date Saved: 06/19/2018 01:41 pm [facility] Main OR Intraoperative Recor leela 06-18-2018 Main OR Intraoperative Record IntraOp Document Type FTURO Summary Primary Physician: Khadar Begum Jr., MD Finalized Date/Time: 06/18/18 14:22:44 Pt. Name: SARI ABBASI Xena/Sex: 1950 Female Med Rec #: [id number] Physician: Khadar Begum Jr., MD Financial #: [id number] Pt. Type: O Room/Bed: / Admit/Disch: 06/18/18 13:04:11 - Institution: Case Times FTURO Entry 1 Patient Times In Room 06/18/18 14:16:00 Out Room 06/18/18 14:22:00 Procedure Times Start 06/18/18 14:18:00 Stop 06/18/18 14:20:00 Anesthesia Times Last Modified By: Barrera SIMON, RN, Heather 06/18/18 14:20:03 Case Attendance FTURO Entry 1 Entry 2 Entry 3 Case Attendee Khadar Begum Jr., MD, RN, [place] BONILLA, Latasha Romero Role Performed Surgeon - Primary Dragline Mechanic - Primary Scrub - Primary Time In [...] Clean-Contaminated Last Modified By: Barrera SIMON RN, Heather 06/18/18 14:20:08 General Case Data FTURO Pre-Care Text: Classifies surgical wound, implements aseptic technique, initiates traffic control Entry 1 Case Information OR URO 1 FT Case Level None Wound Class 2 - Clean-Contaminated Specialty Urology Preop Diagnosis URINARY INCONTINENCE, Postop Same As Preop Yes FREQUENCY, URGENCY Postop Diagnosis URINARY INCONTINENCE, Outcomes Met? Yes FREQUENCY, URGENCY Last Modified By: Barrera SIMON RN, Heather 06/18/18 13:17:22 Post-Care Text: The patient is [...] 14:22 Barrera SIMON RN, Kelly 06/18/18 14:22 [facility] Main OR Preoperative Recordo n 06-18-2018 Main OR Preoperative Record Holding Area Document Type FTURO Summary Primary Physician: Khadar Begum Jr., MD Finalized Date/Time: 06/18/18 13:22:18 Pt. Name: SARI ABBASI Xena/Sex: 1950 Female Med Rec #: [id number] Physician: Khadar Begum Jr., MD Financial #: [id number] Pt. Type: O Room/Bed: / Admit/Disch: 06/18/18 [...] Pain: No Comment: pr Skin Integrity Intact, [place], Warm, & Dry Vitals - EU Blood Pressure 155/79 Pulse 78 bpm Respirations 18 br/min SPO2 Last Modified By: Maryan Cortes LPN 06/18/18 13:22:13 Finalized By: Maryan Cortes LPN Document Signatures Signed By: Maryan Cortes LPN 06/18/18 13:22 [facility] Operative Reporton 8 Operative Report Patient: [...] urine. The Urethra was dilated to: 26 [place] w/ sounds. Devices Implanted: None. Removal: Cystoscope is removed, The patient tolerated it well. Postoperative Information Discharge: Patient is discharged home with antibiotic coverage, Follow up arranged. [facility] Comment on above: Result Comment: Elec tronically Signed By: Khadar Begum Jr., MD\.br\Date and Time Signed: 06/18/18 14:22 EST Vital Signs Date Time Vital Sign Value Performing Clinician Facility 01-05-2025 09:41-0400 Body height 175.3 cm Hudson Castañeda MD Work Phone: [facility] 01-05-2025 09:41-0400 Body mass index (BMI) [Ratio] 25.84 kg/m2 Hudson Castañeda MD Work Phone: [facility] 01-05-2025 09:41-0400 Body weight 79.38 kg Hudson Castañeda MD Work Phone: [facility] 11-25-2024 11:30-0400 Body height 175.26 cm PHYSICIAN NO [facility] 11-25-2024 11:30-0400 Body mass index (BMI) [Ratio] 25.8 kg/m2 PHYSICIAN NO [facility] 11-25-2024 11:30-0400 Body temperature 97.3 [degF] PHYSICIAN NO [facility] 11-25-2024 11:30-0400 Body weight 79.43 kg PHYSICIAN NO [facility] 11-25-2024 11:30-0400 Diastolic blood pressure 70 mm[Hg] PHYSICIAN NO [facility] 11-25-2024 11:30-0400 Heart rate 74 /min PHYSICIAN NO [facility] 11-25-2024 11:30-0400 Respiratory rate 16 /min PHYSICIAN NO [facility] 11-25-2024 11:30-0400 SaO2% (BldA) [Mass fraction] 99 % PHYSICIAN NO [facility] 11-25-2024 11:30-0400 Systolic blood pressure 134 mm[Hg] PHYSICIAN NO [facility] 11-07-2024 12:03-0400 Body height 175.26 cm [facility] 11-07-2024 12:03-0400 Body mass index (BMI) [Ratio] 25.1 kg/m2 [facility] 11-07-2024 12:03-0400 Body temperature 99.1 [degF] [facility] 11-07-2024 12:03-0400 Body weight 77.11 kg [facility] 11-07-2024 12:03-0400 Diastolic blood pressure 76 mm[Hg] [facility] 11-07-2024 12:03-0400 Heart rate 90 /min [facility] 11-07-2024 12:03-0400 Respiratory rate 16 /min [facility] 11-07-2024 12:03-0400 SaO2% (BldA) [Mass fraction] 96 % [facility] 11-07-2024 12:03-0400 Systolic blood pressure 144 mm[Hg] [facility] 10-25-2024 09:14-0400 Body height 175.3 cm Hudson Castañeda MD Work Phone: [facility] 10-25-2024 09:14-0400 Body mass index (BMI) [Ratio] 25.84 kg/m2 Hudson Castañeda MD Work Phone: [facility] 10-25-2024 09:14-0400 Body weight 79.38 kg Hudson Castañeda MD Work Phone: [facility] 10-21-2024 13:36-0400 Body height 175.3 cm Maribeth Gunjanmor SALES ENGINEER [employer] Work Phone: [facility] 10-21-2024 13:36-0400 Body mass index (BMI) [Ratio] 25.84 kg/m2 Maribeth Gillmor SALES ENGINEER [employer] Work Phone: [facility] 10-21-2024 13:36-0400 Body weight 79.38 kg Maribeth Gillmor SALES ENGINEER [employer] Work Phone: [facility] 10-21-2024 13:36-0400 Diastolic blood pressure 66 mm[Hg] Maribeth Gillmor SALES ENGINEER [employer] Work Phone: [facility] 10-21-2024 13:36-0400 Heart rate 69 /min Maribeth Gillmor SALES ENGINEER [employer] Work Phone: [facility] 10-21-2024 13:36-0400 Systolic blood pressure 126 mm[Hg] Maribeth Gillmor SALES ENGINEER [employer] Work Phone: [facility] 08-11-2024 13:16-0500 Diastolic blood pressure 82 mm[Hg] Olive Beltran DO Work Phone: [facility] 08-11-2024 13:16-0500 Systolic blood pressure 136 mm[Hg] Olive Beltran DO Work Phone: [facility] 06-16-2024 11:24-0500 Body mass index (BMI) [Ratio] 25.4 kg/m2 José Luis Flores MD Work Phone: [facility] 06-16-2024 11:24-0500 Body weight 78.02 kg José Luis Flores MD Work Phone: [facility] 06-16-2024 11:24-0500 Diastolic blood pressure 62 mm[Hg] José Luis Flores MD Work Phone: [facility] 06-16-2024 11:24-0500 Systolic blood pressure 112 mm[Hg] José Luis Flores MD Work Phone: [facility] 05-24-2024 13:35-0500 Body height 175.3 cm Maribeth Powers SALES ENGINEER [employer] Work Phone: [facility] 05-24-2024 13:35-0500 Body mass index (BMI) [Ratio] 25.75 kg/m2 Maribeth Gunjanmor SALES ENGINEER [employer] Work Phone: [facility] 05-24-2024 13:35-0500 Body weight 79.1 kg Maribeth Gunjanmor SALES ENGINEER [employer] Work Phone: [facility] 05-24-2024 13:35-0500 Diastolic blood pressure 68 mm[Hg] Maribeth Gunjanmor SALES ENGINEER [employer] Work Phone: [facility] 05-24-2024 13:35-0500 Heart rate 64 /min Maribeth Gunjanmor SALES ENGINEER [employer] Work Phone: [facility] 05-24-2024 13:35-0500 SaO2% (BldA) [Mass fraction] 98 % Maribeth Gunjanmor SALES ENGINEER [employer] Work Phone: [facility] 05-24-2024 13:35-0500 Systolic blood pressure 132 mm[Hg] Maribeth Gunjanmor SALES ENGINEER [employer] Work Phone: [facility] 05-20-2024 10:37-0500 Body height 175.3 cm Hudson Castañeda MD Work Phone: [facility] 05-20-2024 10:37-0500 Body mass index (BMI) [Ratio] 25.7 kg/m2 Hudson Castañeda MD Work Phone: [facility] 05-20-2024 10:37-0500 Body temperature 98.01 [degF] Hudson Castañeda MD Work Phone: [facility] 05-20-2024 10:37-0500 Body weight 78.93 kg Hudson Castañeda MD Work Phone: [facility] 05-20-2024 10:37-0500 Heart rate 68 /min Hudson Castañeda MD Work Phone: [facility] 05-20-2024 10:37-0500 SaO2% (BldA) [Mass fraction] 98 % Hudson Castañeda MD Work Phone: [facility] 03-29-2024 11:05-0400 Body height 175.3 cm Hudson Castañeda MD Work Phone: [facility] 03-29-2024 11:05-0400 Body mass index (BMI) [Ratio] 25.7 kg/m2 Hudson Castañeda MD Work Phone: [facility] 03-29-2024 11:05-0400 Body weight 78.93 kg Hudson Castañeda MD Work Phone: [facility] 03-29-2024 11:05-0400 Diastolic blood pressure 78 mm[Hg] Hudson Castañeda MD Work Phone: [facility] 03-29-2024 11:05-0400 Heart rate 70 /min Hudson Castañeda MD Work Phone: [facility] 03-29-2024 11:05-0400 SaO2% (BldA) [Mass fraction] 99 % Hudson Castañeda MD Work Phone: [facility] 03-29-2024 11:05-0400 Systolic blood pressure 128 mm[Hg] Hudson Castañeda MD Work Phone: [facility] 03-02-2024 11:50-0400 Diastolic blood pressure 74 mm[Hg] Olive Beltran DO Work Phone: [facility] 03-02-2024 11:50-0400 Heart rate 60 /min Olive Beltran DO Work Phone: [facility] 03-02-2024 11:50-0400 SaO2% (BldA) [Mass fraction] 99 % Olive Beltran DO Work Phone: [facility] 03-02-2024 11:50-0400 Systolic blood pressure 126 mm[Hg] Olive Beltran DO Work Phone: [facility] 12-08-2023 16:56-0400 Body mass index (BMI) [Ratio] 24.96 kg/m2 Deb López MD Work Phone: [facility] 12-08-2023 16:56-0400 Body weight 76.66 kg Deb López MD Work Phone: [facility] 12-08-2023 16:56-0400 Diastolic blood pressure 68 mm[Hg] Deb López MD Work Phone: [facility] 12-08-2023 16:56-0400 Systolic blood pressure 147 mm[Hg] Deb López MD Work Phone: [facility] 11-28-2023 13:44-0400 Body height 175.26 cm MD Hudson Castañeda Work Phone: [facility] 11-28-2023 13:44-0400 Body mass index (BMI) [Ratio] 25.5 kg/m2 MD Hudson Castañeda Work Phone: [facility] 11-28-2023 13:44-0400 Body temperature 98.1 [degF] MD Hudson Castañeda Work Phone: [facility] 11-28-2023 13:44-0400 Body weight 78.52 kg MD Hudson Castañeda Work Phone: [facility] 11-28-2023 13:44-0400 Diastolic blood pressure 71 mm[Hg] MD Hudson Castañeda Work Phone: [facility] 11-28-2023 13:44-0400 Heart rate 69 /min MD Hudson Castañeda Work Phone: [facility] 11-28-2023 13:44-0400 Respiratory rate 18 /min MD Hudson Castañeda Work Phone: [facility] 11-28-2023 13:44-0400 SaO2% (BldA) [Mass fraction] 95 % MD Hudson Castañeda Work Phone: [facility] 11-28-2023 13:44-0400 Systolic blood pressure 128 mm[Hg] MD Hudson Castañeda Work Phone: [facility] 11-13-2023 11:00-0400 Body height 175.26 cm MD Hudson Castañeda Work Phone: [facility] 11-13-2023 11:00-0400 Body mass index (BMI) [Ratio] 25.5 kg/m2 MD Hudson Castañeda Work Phone: [facility] 11-13-2023 11:00-0400 Body temperature 96.5 [degF] MD Hudson Castañeda Work Phone: [facility] 11-13-2023 11:00-0400 Body weight 78.58 kg MD Hudson Castañeda Work Phone: [facility] 11-13-2023 11:00-0400 Diastolic blood pressure 70 mm[Hg] MD Hudson Castañeda Work Phone: [facility] 11-13-2023 11:00-0400 Heart rate 72 /min MD Hudson Castañeda Work Phone: [facility] 11-13-2023 11:00-0400 Respiratory rate 16 /min MD Hudson Castañeda Work Phone: [facility] 11-13-2023 11:00-0400 SaO2% (BldA) [Mass fraction] 98 % MD Hudson Castañeda Work Phone: [facility] 11-13-2023 11:00-0400 Systolic blood pressure 130 mm[Hg] MD Hudson Castañeda Work Phone: [facility] 11-03-2023 13:09-0400 Body height 175.3 cm Pricilla Krishnas MOLD CLOSER HELPER[employer]O MANAGER Work Phone: [facility] Georgina Goodman 11-03-2023 13:09-0400 Body mass index (BMI) [Ratio] 25.49 kg/m2 Pricillarere Cabalins MOLD CLOSER HELPER-SEO MANAGER Work Phone: [facility] 11-03-2023 13:09-0400 Body weight 78.29 kg Pricilla Cabalins MOLD CLOSER HELPER-SEO MANAGER Work Phone: [facility] 11-03-2023 13:09-0400 Diastolic blood pressure 80 mm[Hg] Pricilla Cabalins MOLD CLOSER HELPER-SEO MANAGER Work Phone: [facility] Georgina Goodman 11-03-2023 13:09-0400 Heart rate 68 /min Pricilla Krishnas MOLD CLOSER HELPER-SEO MANAGER [facility] 11-03-2023 13:09-0400 Respiratory rate 18 /min Pricilla Cabalins MOLD CLOSER HELPER-SEO MANAGER Work Phone: [employer] 11-03-2023 13:09-0400 Systolic blood pressure 140 mm[Hg] Pricillarere Cabalins MOLD CLOSER HELPER-SEO MANAGER [facility] Phone[facility] 12-05-2022 11:00-0400 Body height 175.26 cm Gonsalo Orta Other [employer] Other 12-05-2022 11:00-0400 Body mass index (BMI) [Ratio] 25.75 kg/m2 Gonsalo You Other [employer] Other 12-05-2022 11:00-0400 Body temperature 96.6 [degF] Gonsalo You Other [employer] Other 12-05-2022 11:00-0400 Body weight 79.11 kg Gonsalo You Other [employer] Other 12-05-2022 11:00-0400 Diastolic blood pressure 72 mm[Hg] Gonsalo You Other [employer] Other 12-05-2022 11:00-0400 Respiratory rate 18 /min Gonsalo You Other [employer] Other 12-05-2022 11:00-0400 SaO2% (BldA) [Mass fraction] 98 % Gonsalo You Other [employer] Other 12-05-2022 11:00-0400 Systolic blood pressure 139 mm[Hg] Gonsalo You Other [employer] Other 01-31-2022 09:30-0400 Diastolic blood pressure 78 mm[Hg] MD Hudson Castañeda Work Phone: [facility] 01-31-2022 09:30-0400 Heart rate 69 /min MD Hudson Castañeda Work Phone: [facility] 01-31-2022 09:30-0400 Respiratory rate 16 /min MD Hudson Castañeda Work Phone: [facility] 01-31-2022 09:30-0400 SaO2% (BldA) [Mass fraction] 99 % MD Hudson Castañeda Work Phone: [facility] 01-31-2022 09:30-0400 Systolic blood pressure 124 mm[Hg] MD Hudson Castañeda Work Phone: [facility] 01-31-2022 08:00-0400 Body height 175.26 cm MD Hudson Castañeda Work Phone: [facility] 01-31-2022 08:00-0400 Body temperature 98.5 [degF] MD Hudson Castañeda Work Phone: [facility] 01-31-2022 08:00-0400 Body weight 74.84 kg MD Hudson Castañeda Work Phone: [facility] 11-29-2021 11:20-0400 Body height 175.26 cm Gonsalo You Other [employer] Other 11-29-2021 11:20-0400 Body mass index (BMI) [Ratio] 26.25 kg/m2 Gonsalo You Other [employer] Other 11-29-2021 11:20-0400 Body temperature 96.5 [degF] Gonsalo You Other [employer] Other 11-29-2021 11:20-0400 Body weight 80.65 kg Gonsalo You Other [employer] Other 11-29-2021 11:20-0400 Diastolic blood pressure 90 mm[Hg] Gonsalo You Other [employer] Other 11-29-2021 11:20-0400 Respiratory rate 18 /min Gonsalo You Other [employer] Other 11-29-2021 11:20-0400 SaO2% (BldA) [Mass fraction] 95 % Gonsalo Browndir Other [employer] Other 11-29-2021 11:20-0400 Systolic blood pressure 160 mm[Hg] Gonsalo Browndir Other [employer] Other Encounters Encounter Date Encounter Type Care Provider Facility Start: 01-05-2025 End: 01-05-2025 ambulatory HUDSON CASTAÑEDA Not Available Start: 01-05-2025 End: 01-05-2025 Office outpatient visit 15 minutes Hudson Castañeda MD Work Phone: [facility] Comment on above: Skin tear of forearm without complication, initial encounter Start: 01-03-2025 End: 01-03-2025 Patient encounter procedure Tamera Randall MD -Lab [address] Work Phone: Start: 01-03-2025 End: 01-03-2025 ambulatory Hudson Castañeda MD Work Phone: [facility] Work Phone: Start: 11-25-2024 End: 11-25-2024 ambulatory PHYSICIAN NO [facility] Work Phone: Start: 11-25-2024 End: 11-25-2024 Patient encounter procedure PHYSICIAN NO [facility] Nephrology Jose Luis Work Phone: Start: 11-15-2024 End: 11-15-2024 Clinisync Result Encounter Generic External Data Provider [facility] External Department Unsolicited Start: 11-15-2024 End: 11-15-2024 Clinisync Result Encounter Generic External Data Provider [facility] External Department Unsolicited Start: 11-15-2024 Non-patient / Non-visit PHYSICIAN NO [facility] Work Phone: Start: 11-07-2024 End: 11-07-2024 Departed Referred Kyra Gomes APRN Work Phone: [facility] [address] [place] Work Phone: Start: 11-07-2024 End: 11-07-2024 ambulatory Kyra Pompa Mireya [facility] Work Phone: Start: 11-07-2024 End: 11-07-2024 Patient encounter procedure [facility] Urgent Care Jose Luis Work Phone: Start: 10-25-2024 End: 10-25-2024 Bamboo flowsheet Hudson Castañeda MD Work Phone: [facility] Start: 10-25-2024 End: 10-25-2024 Bamboo flowsheet Hudson Castañeda MD Work Phone: [facility] Start: 10-25-2024 End: 10-25-2024 Office outpatient visit 15 minutes Hudson Castañeda MD Work Phone: [facility] Comment on above: Acute cystitis with hematuria (Primary Dx); Frequent urination Start: 10-25-2024 End: 10-25-2024 ambulatory HUDSON CASTAÑEDA Not Available Start: 10-21-2024 End: 10-21-2024 Bamboo flowsheet Maribeth Bayleer SALES ENGINEER [employer] Work Phone: [facility] Start: 10-21-2024 End: 10-21-2024 Bamboo flowsheet Maribeth Bayleer SALES ENGINEER [employer] Work Phone: [facility] Start: 10-21-2024 End: 10-21-2024 Office outpatient visit 25 minutes Maribeth Powers SALES ENGINEER [employer] Work Phone: [facility] Comment on above: Neck pain (Primary D x); Low back pain at multiple sites; KENNEDY (obstructive sleep apnea); Primary insomnia Start: 10-21-2024 End: 10-21-2024 ambulatory MARIBETH GILLMOR Not Available Start: 10-05-2024 End: 10-05-2024 Js SCOTT Comment on above: Primary insomnia Start: 08-11-2024 End: 08-11-2024 Bamboo flowsheet Olive Gong DO Work Phone: [facility] Start: 08-11-2024 End: 08-11-2024 Bamboo flowsheet Olive Gong DO Work Phone: [facility] Start: 08-11-2024 End: 08-11-2024 Patient encounter procedure Olive Gong DO Work Phone: [facility] Comment on above: Myalgia (Primary Dx) ; Neck pain Start: 08-11-2024 End: 08-11-2024 ambulatory OLIVE GONG Not Available Start: 07-08-2024 End: 07-09-2024 Refill Vera Llamas MA [facility] [address] Comment on above: Primary insomnia (Pr imary Dx) Start: 06-16-2024 End: 06-16-2024 Bamboo flowsheet José Luis Flores MD Work Phone: [facility] Start: 06-16-2024 End: 06-16-2024 Bamboo flowsheet José Luis Flores MD Work Phone: [facility] Start: 06-16-2024 End: 06-16-2024 Patient encounter procedure José Luis Flores MD Work Phone: [facility] Comment on above: Well woman exam (Barbi sari Dx); Cervical cancer screening Start: 06-16-2024 End: 06-16-2024 ambulatory JOSÉ LUIS FLORES Not Available Start: 06-14-2024 End: 06-14-2024 ambulatory DEB LÓPEZ [facility] Start: 05-24-2024 End: 05-24-2024 Bamboo flowsheet Maribeth Powers SALES ENGINEER [employer]ODU[employer] Work Phone: [facility] [place] [address] Start: 05-24-2024 End: 05-24-2024 Bamboo flowsheet Maribeth Powers SALES ENGINEER [employer] Work Phone: [facility] [place] [address] Start: 05-24-2024 End: 05-24-2024 Office outpatient visit 25 minutes Maribeth Powers SALES ENGINEER [employer] Work Phone: [employer] [facility] Comment on above: KENNEDY (obstructive sle ep apnea) (Primary Dx); Myalgia; Chronic low back pain with bilateral sciatica, unspecified back pain laterality; Neck pain; Primary insomnia Start: 05-24-2024 End: 05-24-2024 ambulatory MARIBETH POWERS Not Available Start: 05-20-2024 End: 05-20-2024 Office outpatient visit 15 minutes Hudson Castañeda MD Work Phone: [facility] Comment on above: Bronchitis (Primary Dx); Polypharmacy Start: 05-20-2024 End: 05-20-2024 ambulatory HUDSON CASTAÑEDA Not Available Start: 04-23-2024 End: 04-23-2024 Patient encounter procedure MD Hudson Castañeda Work Phone: [facility] Start: 04-23-2024 End: 04-23-2024 ambulatory MD Hudson Castañeda Work Phone: [facility] Work Phone: Start: 04-10-2024 End: 04-12-2024 Refill Olive Beltran DO Work Phone: [employer] [facility] Comment on above: Primary insomnia Start: 03-29-2024 End: 03-29-2024 Bamboo flowsheet Hudson Castañeda MD Work Phone: [facility] Start: 03-29-2024 End: 03-29-2024 Bamboo flowsheet Hudson Castañeda MD Work Phone: [facility] Start: 03-29-2024 End: 03-29-2024 Patient encounter procedure Hudson Castañeda MD Work Phone: [facility] Comment on above: Encounter for Medica re annual wellness exam (Primary Dx); Advance directive discussed with patient; Encounter for screening for other disorder; Screening for alcohol problem; Polypharmacy; Overweight (BMI 25.0-29.9); Mixed hyperlipidemia (CMS/HCC); Myalgia due to statin; Atherosclerosis of renal artery (CMS/HCC); Benign essential HTN (CMS/HCC); Left renal artery stenosis (CMS/HCC); 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) Start: 03-29-2024 End: 03-29-2024 ambulatory HUDSON CASTAÑEDA Not Available Start: 03-02-2024 End: 03-02-2024 Bamboo flowsheet Olive Gong DO Work Phone: [employer] [facility] Start: 03-02-2024 End: 03-02-2024 Bamboo flowsheet Olive Gong DO Work Phone: [employer] [facility] Start: 03-02-2024 End: 03-02-2024 Office outpatient visit 25 minutes Olive Gong DO Work Phone: [employer] [facility] Comment on above: Neck pain (Primary D x); Chronic low back pain with bilateral sciatica, unspecified back pain laterality; Myalgia; Primary insomnia; KENNEDY (obstructive sleep apnea); Sciatica, unspecified laterality Start: 03-02-2024 End: 03-02-2024 ambulatory OLIVE GONG Not Available Start: 02-05-2024 End: 02-05-2024 Patient encounter procedure MD Hudson Castañeda Work Phone: [facility] Work Phone: Start: 02-05-2024 End: 02-05-2024 ambulatory MD Hudson Castañeda Work Phone: [facility] Work Phone: Start: 12-08-2023 End: 12-08-2023 Office outpatient visit 25 minutes Deb López MD Work Phone: [facility] [place] Comment on above: Renal artery stenosi s (CMS-HCC) (Primary Dx) Start: 12-08-2023 ambulatory DEB Gabriel [facility] Start: 11-28-2023 End: 11-28-2023 ambulatory MD Hudson Castañeda Work Phone: [facility] Work Phone: Start: 11-28-2023 End: 11-28-2023 Patient encounter procedure MD Hudson Castañeda Work Phone: [facility] [place] Work Phone: Start: 11-25-2023 End: 11-25-2023 ambulatory [facility] Start: 11-13-2023 End: 11-13-2023 ambulatory MD Hudson Castañeda Work Phone: 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); Epigastric pain Start: 11-03-2023 End: 11-03-2023 ambulatory [facility] Start: 10-27-2023 End: 10-27-2023 ambulatory MD Hudson Castañeda Work Phone: [facility] Work Phone: Start: 10-27-2023 End: 10-27-2023 Patient encounter procedure MD Hudson Castañeda Work Phone: [facility] [address] Work Phone: Start: 10-17-2023 End: 10-17-2023 ambulatory [facility] Start: 05-08-2023 End: 05-08-2023 ambulatory Gonsalo Orta Other [place] [employer] Other Start: 05-08-2023 Telephone encounter Gonsalo You [facility] Start: 04-29-2023 End: 04-29-2023 ambulatory MD Hudson Castañeda Work Phone: [facility] Work Phone: Start: 04-29-2023 End: 04-29-2023 Patient encounter procedure MD Hudson Castañeda Work Phone: [facility] [address] Work Phone: Start: 01-08-2023 End: 01-08-2023 ambulatory MD Hudson Castañeda Work Phone: [facility] Work Phone: Start: 01-08-2023 End: 01-08-2023 Patient encounter procedure MD Hudson Castañeda Work Phone: [facility] Work Phone: Start: 12-05-2022 End: 12-05-2022 ambulatory Gonsalo You Other [employer] Other Start: 12-05-2022 Office outpatient vi sit 25 minutes Gonsalo You [facility] [place] Start: 10-29-2022 End: 10-29-2022 ambulatory MD Hudson Castañeda Work Phone: [facility] Work Phone: Start: 10-29-2022 End: 10-29-2022 Patient encounter procedure MD Hudson Castañeda Work Phone: [facility] [address] Work Phone: Start: 10-25-2022 End: 10-25-2022 Patient encounter procedure MD Hudson Castañeda Work Phone: [facility] Start: 07-15-2022 End: 07-16-[address] TAMERA RANDALL Facility:[facility] Start: 05-20-2022 End: 05-20-2022 ambulatory Gonsalo You Other [employer] Other Start: 05-20-2022 Telephone encounter Gonsalo You [facility] Start: 04-25-2022 End: 04-25-2022 ambulatory MD Hudson Castañeda Work Phone: [facility] Work Phone: Start: 04-25-2022 End: 04-25-2022 Patient encounter procedure MD Hudson Castañeda Work Phone: [facility] [address] Start: 02-26-2022 End: 02-26-[address] HUDSON CASTAÑEDA Facility:[facility] Start: 02-11-2022 End: 02-12-[address] HUDSON CASTAÑEDA Facility:[facility] Start: 01-31-2022 End: 01-31-2022 Admission to same day surgery center MD Hudson Castañeda Work Phone: [facility] Start: 01-29-2022 End: 01-29-2022 Patient encounter procedure MD Hudson Castañeda Work Phone: [facility] Start: 01-08-2022 End: 01-08-2022 ambulatory Jordan Gutierrez Other [employer] Other Start: 01-08-2022 Telephone encounter Jordan CHAMORRO [employer] Start: 12-10-2021 End: 12-10-2021 Patient encounter procedure MD Hudson Castañeda Work Phone: [facility] Start: 11-29-2021 End: 11-29-2021 ambulatory Gonsalo You Other [employer] Other Start: 11-29-2021 Office outpatient vi sit 15 minutes Gonsalo You [facility] [place] Start: 11-21-2021 End: 11-22-2021 ambulatory GONSALOROLDAN ORTA Facility:[facility] Start: 07-28-2020 End: 07-28-2020 Patient encounter procedure Hudson Castañeda [facility] Start: 07-05-2020 End: 07-05-2020 Patient encounter procedure Hudson Castañeda -Lab [address] Start: 06-18-2018 End: 06-19-2018 Patient encounter procedure Juan Shirley Facility:[facility] Procedures Date Procedure Procedure Detail Performing Clinician Start: 11-15-2024 HP CBC WITH PLATEL ET NO DIFFERENTIAL Generic External Data Provider Start: 11-07-2024 Urine culture PHYSICIAN NO FAMILY Start: 10-25-2024 Urnls dip stick/tabl et rgnt non-auto w/o micrscp Hudson Castañeda MD Work Phone: Start: 08-11-2024 Injection single/location director trigger point 3/> muscles Olive Gong DO Work Phone: Start: 02-05-2024 Screening mammograph y of bilateral breasts MD Hudson Castañeda Work Phone: Start: 11-03-2023 Follow-up visit Follow-up PRICILLA LOBATO Start: 01-08-2023 End: 01-08-2023 Screening mammography of bilateral breasts MD Hudson Castañeda Work Phone: Start: 10-29-2022 X-ray of left knee MD Charity Castañeda Work Phone: Start: 01-31-2022 Screening colonoscopy Aletha Castañeda Work Phone: Start: 01-31-2022 Colonoscopy Olive iverson DO Work Phone: Start: 12-10-2021 Screening mammograph y of bilateral breasts MD Hudson Castañeda Work Phone: Start: 07-28-2020 Dual energy X-ray ph oton absorptiometry Hudson Castañeda Start: 07-28-2020 Screening mammography Charity Castañeda SARS Antigen (LFIA) MD Travis Castañeda Work Phone: Plan of Treatment Date Care Activity Detail Author Start: 02-01-2032 Screening for malign ant neoplasm of colon [facility] Start: 07-10-2026 End: 07-10-2026 Patient encounter procedure 07/10/2026 11:30 AM EST Office Visit [facility] [address] [place] [address] José Luis Flores MD [address] [place] [address] [facility] Start: 03-29-2025 Medicare Annual Well ness (AWV) Medicare Annual Wellness (AWV) [facility] Start: 03-07-2025 Influenza vaccination Influenza Vacc ine (#1) [facility] Start: 01-10-2025 End: 01-10-2025 Patient encounter procedure 01/10/2025 12:40 PM EDT Office Visit [facility] [address] [place] [address] Maribeth Powers NP [address] [place], [place] [facility] Start: 12-07-2024 Adult BMI Screening Adult BMI Screen ing [facility] Start: 12-07-2024 Tobacco Screening Tobacco Screening [facility] Start: 11-08-2024 Urine culture [facility] Start: 11-07-2024 Bacteria identified in Urine by Culture Urine Culture [facility] Start: 11-02-2024 Adult BMI Screening Adult BMI Screen ing [facility] Start: 11-02-2024 Tobacco Screening Tobacco Screening [facility] Start: 10-25-2024 End: 10-25-2024 Patient encounter procedure 10/25/2024 9:15 AM EDT Office Visit [facility] [address] [place] [address] Hudson Castañeda MD [address] [place] [address] (Fax) Arrived [facility] Comment on above: Arrived Start: 10-21-2024 End: 10-21-2024 Patient encounter procedure [facility] Comment on above: Arrived Start: 10-14-2024 End: 10-14-2024 Patient encounter procedure 10/14/2024 12:40 PM EDT Office Visit [facility] [address] [place] [address] Maribeth Powers, SALES ENGINEER [employer] [address] [place], [place] [facility] Start: 08-19-2024 End: 08-19-2024 Patient encounter procedure 08/19/2024 12:40 PM EST Office Visit [facility] [place] [address] [place] [address] Maribeth Powers, SALES ENGINEER [employer] [address] [place], [place] [facility] [address] Start: 08-11-2024 End: 08-11-2024 Patient encounter procedure 08/11/2024 1:15 PM EST Office Visit [facility] [address] [address] Olive Gong DO [address] [place] [address] Arrived [facility] [place] Comment on above: Arrived Start: 06-23-2024 End: 06-23-2024 Patient encounter procedure 06/23/2024 3:45 PM EST Office Visit [facility] [place] [address] [place] [address] Olive Gong DO [address] [place] [address] [facility] [address] [address] Start: 06-16-2024 End: 06-16-2024 Patient encounter procedure [facility] Comment on above: Cervical cancer scre ening Start: 06-08-2024 End: 12-07-2024 US.doppler Renal vessels - bilateral Vas renal artery duplex complete Vascular Ultrasound Routine Renal artery stenosis (CMS-HCC) Expected: 06/08/2024 (Approximate), Expires: 12/07/2024 [facility] Work Phone: Comment on above: Expected: 06/08/2024 (Approximate), Expires: 12/07/2024 Start: 05-25-2024 End: 05-25-2024 Patient encounter procedure 05/25/2024 1:20 PM EST Office Visit [facility] [place] [address] [place] [address] Maribeth Powers NP [address] [place], [place] [facility] [address] Start: 05-24-2024 Influenza vaccination Influenza Vacc ine (#1) [facility] Comment on above: Postponed from 03/07 (Patient Refused) Start: 03-29-2024 End: 03-29-2024 Patient encounter procedure 03/29/2024 11:30 AM EDT Office Visit [facility] [address] [address] Hudson Castañeda MD [address] [place], [place] [id number] Encounter for Medicare annual wellness exam; Advance directive discussed with patient; Encounter for screening for other disorder; Screening for alcohol problem; Polypharmacy; Overweight (BMI 25.0-29.9) [facility] Comment on above: Encounter for [facility] annual wellness exam; Advance directive discussed with patient; Encounter for screening for other disorder; Screening for alcohol problem; Polypharmacy; Overweight (BMI 25.0-29.9) Start: 03-07-2024 Influenza vaccination [facility] Start: 03-02-2024 End: 03-02-2024 Patient encounter procedure 03/02/2024 11:45 AM EDT Office Visit [facility] [place] [address] [place] [address] Olive Gong, [address] [place], [place] [id number] Arrived [facility] [place] [address] Comment on above: Arrived Start: 01-09-2024 Screening for malign ant neoplasm of breast Mammogram [facility] Start: 12-08-2023 End: 12-08-2023 Telemedicine consultation with patient 12/08/2023 4:05 PM EDT Telemedicine [facility] [address] [place] [address] [place] [address] Deb López MD [address] [place] [address] [facility] Start: 12-03-2023 End: 11-02-2024 Vas mesenteric artery duplex complete Vas mesenteric artery duplex complete Vascular Ultrasound Routine Celiac artery stenosis (CMS-HCC) Epigastric pain Expected: 12/03/2023 (Approximate), Expires: 11/02/2024 [facility] Work Phone: Comment on above: Expected: 12/03/2023 (Approximate), Expires: 11/02/2024 Start: 11-25-2023 End: 11-25-2023 Patient encounter procedure 11/25/2023 9:30 AM EDT Appointment [facility] [address] [place] [address] Pricilla Lobato, MOLD CLOSER HELPER-SEO MANAGER [address] [facility], [address] [place] [address] [facility] Start: 09-04-2023 COVID-19 Vaccine ( season) COVID-19 Vaccine ( season) [facility] Start: 07-02-2023 Medicare Annual Well ness (AWV) Medicare Annual Wellness (AWV) [facility] Start: 01-31-2022 [facility] Start: 2015 Fall Risk Screening Fall Risk Screen ing [facility] Start: 2000 Administration of varicella zoster vaccine Zoster (Shingles) Vaccine (1 of 2) [facility] Start: 1969 DTaP,Tdap and Td Vac cines (1 - Tdap) DTaP,Tdap and Td Vaccines (1 - Tdap) [facility] Start: 1968 Adult BMI Follow Up Plan Adult BMI Follow Up Plan [facility] Start: 1962 Depression Screening Depression Scre ening [facility] Start: 1950 Medicare Annual Well ness Visit Medicare Annual Wellness Visit [facility] Start: 1950 Screening for malign ant neoplasm of colon [facility] IGP,rfx Aptima HPV a ll pth IGP,rfx Aptima HPV all pth Pathology and Cytology Routine Cervical cancer screening Ordered: 06/16/2024 [facility] Work Phone: Comment on above: Ordered: 06/16/2024 Renal function 1999 panel - Serum or Plasma [facility] Renal function 1999 panel - Serum or Plasma [facility] Urine culture [facility] Immunizations Immunization Date Immunization Notes Care Provider [facility] 05-13-2024 Seasonal trivalent influenza vaccine, adjuvanted, preservative free Maribeth Powers SALES ENGINEER [employer] Work Phone: [facility] 05-13-2024 influenza virus vacc ine, unspecified formulation Hudson Castañeda MD Work Phone: [facility] 04-21-2023 Influenza, Seasonal, Quadrivalent, Adjuvanted Olive Beltran DO Work Phone: [facility] 04-21-2023 influenza virus vacc ine, unspecified formulation Pricilla Lobato MOLD CLOSER HELPER-SEO MANAGER Work Phone: [facility] 04-26-2022 Influenza, Seasonal, Quadrivalent, Adjuvanted Olive Beltran DO Work Phone: [facility] 04-21-2021 COVID-19 Kyung, Yu haley (Pfizer) MD Hudson Castañeda Work Phone: [facility] 04-21-2021 Influenza, High-dose Seasonal, Quadrivalent, Preservative Free Olive Beltran DO Work Phone: [facility] 08-26-2020 COVID-19 mRNAYu (Pfizer) MD Hudson Castañeda Work Phone: [facility] 08-05-2020 COVID-19 Yu Tracey (Pfizer) MD Hudson Castañeda Work Phone: [facility] 07-07-2019 pneumococcal conjuga te vaccine, 13 valent Olive Beltran DO Work Phone: [facility] 05-10-2019 influenza, injectabl e, quadrivalent, preservative free Olive Beltran DO Work Phone: [facility] 07-09-2018 pneumococcal polysaccharide vaccine, 23 valent Olive Beltran DO Work Phone: [facility] 04-10-2018 influenza, high dose seasonal, preservative-free Olive Beltran DO Work Phone: [facility] 04-06-2018 pneumococcal conjuga te vaccine, 13 valent Olive Beltran DO Work Phone: [facility] 07-19-2017 pneumococcal conjuga te vaccine, 13 valent Olive Beltran DO Work Phone: [facility] 07-10-2017 pneumococcal conjuga te vaccine, 13 valent Olive Beltran DO Work Phone: [facility] 06-18-2017 pneumococcal conjuga te vaccine, 13 valent Olive Beltran DO Work Phone: [facility] 04-17-2017 influenza, high dose seasonal, preservative-free Olive Beltran DO Work Phone: [facility] 05-12-2015 influenza, injectabl e, quadrivalent, preservative free Olive Beltran DO Work Phone: [facility] Payers Date Payer Category Payer Self-pay [id number] 2022 Unknown AARP AARP [id number] 2022-Present [address] [place] [address] [id number] 2015 Medicare [id number] 2015 Private Health Insurance [id number] 2015 Medicare [id number] 2013 Unknown [id number] 1959 Medicare [id number] 1959 Unknown [id number] 1950 Unknown [id number] 2.16.840.1.701086.3.579.2.7 27 1950 Unknown [id number] 2.16.840.1.593839.3.579.2.5 93 1950 Unknown [id number] 2.16.840.1.137401.3.579.2.5 93 1950 Unknown [id number] 2.16.840.1.047532.3.579.2.5 93 1950 Unknown [id number] 2.16.840.1.725709.3.579.2.5 93 1950 Unknown [id number] 2.16.840.1.743759.3.579.2.1 286 1950 Unknown [id number] 2.16.840.1.818503.3.579.2.1 286 1950 Unknown [id number] 2.16.840.1.377492.3.579.2.1 286 1950 Unknown [id number] 2.16.840.1.626425.3.579.2.1 286 1950 Unknown [id number] 2.16.840.1.832944.3.579.2.1 286 1950 Unknown [id number] 2.16.840.1.615015.3.579.2.1 259 1950 Unknown [id number] 2.16.840.1.869640.3.579.2.1 259 1950 Unknown [id number] 2.16.840.1.078900.3.579.2.1 259 1950 Unknown [id number] 2.16.840.1.904506.3.579.2.1 259 1950 Unknown [id number] 2.16.840.1.342264.3.579.2.1 259 1950 Unknown [id number] 2.16.840.1.233851.3.579.2.1 259 1950 Unknown [id number] 2.16.840.1.374992.3.579.2.1 259 1950 Unknown [id number] 2.16.840.1.685404.3.579.2.1 259 1950 Unknown [id number] 2.16.840.1.569983.3.579.2.1 259 Unknown [id number] 2.16.840.1.792874.3.579.2.5 31 Unknown [id number] 2.16.840.1.573859.3.579.2.5 31 Unknown [id number] 2.16.840.1.006419.3.579.2.5 31 Unknown [id number] 2.16.840.1.983148.3.579.2.5 31 Social History Date Type Detail Facility Tobacco smoking stat us [facility] Unknown if ever smoked [facility] Start: 1950 Sex Assigned At Female [facility] Start: 12-19-2022 End: 12-30-2023 Sex Assigned At [facility] Start: 01-31-2022 End: 12-31-2023 Tobacco smoking status IDIS Ex-smoker (finding) [facility] Start: 07-07-1974 End: 01-04-1997 History of tobacco use Current smoker [facility] Start: 07-07-1974 End: 01-04-1997 History of tobacco use Cigarette Smoker [facility] Start: 12-30-2023 End: 12-31-2023 Cigarettes smoked current (pack per day) - Reported 1.5 [facility] Start: 12-08-2023 End: 12-31-2023 Tobacco use and exposure Smokeless tobacco non-user [facility] Start: 03-29-2024 End: 01-05-2025 Alcoholic beverage intake Ex-drinker (finding) [facility] How often do you nee d to have someone help you when you read instructions, pamphlets, or other written material from your doctor or pharmacy [SILS] Never [facility] Within the last year , have you been afraid of your partner or ex-partner? No [facility] Do you belong to any clubs or organizations such as baptist groups, [employer], fraternal or athletic groups, or school groups? Yes [facility] Are you now , , , , never or living with a partner? [facility] How often to you hav e a drink containing alcohol? Never [facility] How many standard dr inks containing alcohol do you have on a typical day? 1 or 2 [facility] Do you feel stress - tense, restless, nervous, or anxious, or unable to sleep at night because your mind is troubled all the time - these days [OSQ] Not at all [facility] (I/We) worried wheth er (my/our) food would run out before (I/we) got money to buy more. Never true [facility] Start: 12-09-2022 Education 13 [facility] Start: 12-09-2022 Alcohol Comment caffeine intake: 1-2 cups per day; coffee / 2-3 cups per day [facility] Start: 1950 Sex assigned at Not on file [facility] Start: 03-24-2021 Gender identity Identifies as female gender (finding) [facility] Start: 03-24-2021 Sexual orientation Heterosexual (finding) [facility] Start: 11-09-2024 End: 11-25-2024 Sex Female (finding) [facility] Goals Date Patient Goal Desired Activity /State Functional Status Date Assessment Result Facility 01-05-2025 Patient Health Quest ionnaire 2 item (PHQ-2) [Reported] [facility] 10-25-2024 Patient Health Quest ionnaire 2 item (PHQ-2) [Reported] [facility] Clinical Notes 05-03-2021 to 01-05-2025 Hudson Castañeda MD - 01/05/2025 9:30 AM EDT Note Date & Type Note Facility 01-05-2025 History of Presen t illness Narrative Images from the original note were not included. Patient ID: Sari Abbasi is a 74 y.o. female who [...] % 98 % 98 % Temp 98 F Height (in) 5' 9 5' 9 5' [...] MOUTH EVERYDAY AT BEDTIME 90 tablet 1 desonide (DesOwen) 0.05 % cream Apply topically [...] any further problems. documented in this encounter [facility] 11-07-2024 Evaluation note Diagnosis Onset Date Resolution Acute UTI acute November 07, 2024 11:42am [facility] Work Phone: 1(916) 354-359005-04-2025 Evaluation note* Diagnosis Onset Date Resolution Status Admit Date Acute UTI acute November 07, 2024 11:42am Anemia acute November 25, 2024 11:14am Chronic hyponatremia acute November 25, 2024 11:14am Hypercholesterolemia acute November 25, 2024 11:14am Renal artery stenosis acute November 25, 2024 11:14am Renovascular hypertension acute November 25, 2024 11:14am Rheumatoid arthritis acute November 25, 2024 11:14am Vitamin D deficiency acute November 25, 2024 11:14am [facility] Work Phone: [phone] 472-682304-21-2025 History of Present illness Narrative* Hudson Castañeda MD - 10/25/2024 9:15 AM EDT Images from the original note were not included. Patient ID: Sari Abbasi is a 74 y.o. female who presents for: Urinary Tract Infection Patient complains of frequency, suprapubic pressure, and urgency. He/She has had symptoms for 3 days. Patient also complains of nausea .Patient does not have a history of recurrent UTI. Patient does not have a history of pyelonephritis. Review of Systems Objective She does appear tired but she is in no acute distress. Moist mucous membranes. No significant CVA tenderness. Visit Vitals Ht 5' 9 Wt 175 lb BMI 25.84 kg/m OB Status Postmenopausal Smoking Status Former BSA 1.97 m Allergies Allergen Reactions Pollen Extract Rosuvastatin myalgia [...] at bedtime for sleep 30 tablet 2 [DISCONTINUED] cyclobenzaprine (Flexeril) 10 MG tablet TAKE 1/2 TO 1 TABLET BY MOUTH EVERYDAY AT BEDTIME 30 tablet 2 No current facility-administered medications on file prior to visit. 1. Frequent urination - POCT urinalysis dipstick manually resulted Office Visit on 10/25/2024 Component Date Value Ref Range Status Color, UA 10/25/2024 Yellow Final Clarity, UA 10/25/2024 Cloudy Final Glucose, UA 10/25/2024 Negative Negative - 1999(110) ++++ mg/dL Final Bilirubin, UA 10/25/2024 Negative Negative - 4(70) +++ mg/dL Final Ketones, UA 10/25/2024 Positive Negative - 160(16) ++++ mg/dL Final Spec Grav, UA 10/25/2024 1.005 1 - 1.03 Final Blood, UA 10/25/2024 Positive Negative - 50 Joe/mcL Final 2+ pH, UA 10/25/2024 6.0 5 - 9 Final Protein, UA 10/25/2024 1+ Negative - 1999(20) ++++ mg/dL Final Urobilinogen, UA 10/25/2024 0.2 0.2 - 12 mg/dL Final Leukocytes, UA 10/25/2024 2+ Negative - 500+++ Isa/mcL Final Nitrite, UA 10/25/2024 Negative Negative - Positive Final 2. Acute cystitis with hematuria (Primary) Acute problem. In prescribing a new medication consideration of the following encompasses moderate decision making: the current prescriptions and supplements, the current allergies and medication intolerances, the current medical conditions, and potential drug interactions. Risks, benefits, and reason for starting their medication were discussed. The patient was given a chance to ask questions today and all questions were answered. The patient is to contact us if any other questions arise or if any problems occur with the adjustment in their medication. Cefuroxime 500 mg 14. One tablet twice daily. documented in this encounterDoctors [facility] of [id number] History of Present illness Narrative* Maribeth Powers, SALES ENGINEER [employer] - 10/21/2024 1:40 PM EDT Images from the original note were not included. Sari Abbasi, 73 y.o., female here for a follow up for neck pain and KENNEDY . Patient is here today for follow-up of KENNEDY and neck pain. Sidney Adhikari had trigger injections and occipital nerve blocks done on 08/11/24. She states she is doing wellsince the injections. There were a couple times where she had some bad pains in her neck and shoulders. She states they are remodeling so she has been moving some things. She states aleve or a pain medication rub will help to settle down the pain. She is wearing her PAP machine. She denies any issues with it. She sleeps well. She is getting 6-8 hours of sleep per night. Past Medical History: Diagnosis Date Allergic Allergic rhinitis unspecified Anemia Anxiety Anxiety state (CMS/HCC) unspecified Back pain 07/09/2018 Blood infection 2011 E.coli -Dr. Iman Wallace Cataract Celiac artery stenosis (CMS/HCC) Cervical dystonia 02/11/2018 Cervical spondylosis Complication of statin therapy, subsequent encounter Constipation, unspecified Dizziness 02/11/2018 Dysfunctions associated with sleep stages or arousal from sleep Encounter for screening 2003 Fibrocystic breast 1980 GERD (gastroesophageal reflux disease) High cholesterol (CMS/HCC) Hyperlipidemia (CMS/HCC) Hypertension (CMS/HCC) Hypertensive urgency (CMS/HCC) malignant Insomnia 02/11/2018 Labile secondary hypertension (CMS/HCC) Lumbar spondylosis Menopause ovarian failure 1989 Myalgia 02/11/2018 Neck pain 02/11/2018 KENNEDY (obstructive sleep apnea) 01/11/2019 Osteoarthritis RA (rheumatoid arthritis) (CMS/HCC) Renal vein stenosis left Rheumatoid arthritis (CMS/HCC) Rheumatoid arthritis involving knee, unspecified laterality, unspecified whether rheumatoid factor present (CMS/HCC) Right knee pain 01/11/2019 Sciatica 05/2018 [facility], 1 night Sciatica 01/11/2019 Shoulder pain 01/11/2019 Sleep apnea treated with continuous positive airway pressure (CPAP) Sleep disorder Sphenoid sinusitis, unspecified chronicity Unspecified rotator cuff tear or rupture of right shoulder, not specified as traumatic Vertigo Past Surgical History: Procedure Laterality Date CATARACT EXTRACTION COLONOSCOPY COLONOSCOPY 01/2022 Dr. Gutierrez [facility] [place]URE[place] 1992;11/11/2017 EYE SURGERY 10/2016 bilateral - lid removal, excess skin FOOT SURGERY Bilateral 11/11/2017 FOOT SURGERY right OTHER SURGICAL HISTORY 04/2017 right foot 1st MPJ - Dr. Quick TONSILLECTOMY 1955 VAGINAL DELIVERY x3 Family History Problem Relation Name Age of Onset Other (stomach trouble) Mother Leukemia Father Brock Hypertension Father Brock Cancer Father Brock No Known Problems Sister No Known Problems Son No Known Problems Daughter Ovarian cancer Sister Maame Cancer Sister Maame Social History Tobacco Use Smoking status: Former Current packs/day: 0.00 Average packs/day: 1.5 packs/day for 22.5 years (33.7 ttl pk-yrs) Types: Cigarettes Start date: 07/07/1974 Quit date: 01/04/1997 Years since quittin.8 Smokeless tobacco: Never Substance Use Topics Alcohol use: Not Currently Comment: caffeine intake: 1-2 cups per day; coffee / 2-3 cups per day Allergies: Pollen extract, Rosuvastatin, and Statins General: No fever or chills HEENT: No nasal congestion or runny nose Pulmonary: No shortness of breath or cough Cardiovascular: No chest pain or palpitations GI: No nausea or vomiting : No dysuria or hematuria Musculoskeletal: No new aches or pains or muscle weakness Infectious: no recurrent fevers or infections Dermatologic: No rashes or skin lesions Neurologic: No new headaches or dizziness Vitals: 10/21/24 1336 BP: 126/66 Pulse: 69 Body mass index is 25.84 kg/m . Weight: 175 lb Neurologic exam: Mental status: Awake, alert to person, place and time. Recent and remote memory are intact. Attention and concentration are normal. Fund of knowledge is appropriate for level of education. HEENT: NC/AT Cranial nerves: CN II: Visual acuity is normal. Visual king full to confrontation. CN III, IV, : pupils equal round and reactive to light. Extraocular movements intact. No ptosis present. CN V: Facial sensation is normal. CN VII: Full and symmetric facial movement. CN VIII: Hearing is normal CN IX and X: Palate elevates symmetrically. Normal gag reflex. CN XI: Shoulder shrug is normal bilaterally. CN XII: Tongue is midline without atrophy or fasciculation. Speech: Clear and fluent no aphasia or dysarthria Pronator drift: Negative bilateral upper extremity Coordination: Intact, no signs of dysmetria Good finger to nose and rapid alternating movements Sensory: Sensation is intact to light, temperature and vibratory touch throughout four extremities. Pinprick intact in all four extremities. Motor: LUE 5/5 RUE 5/5 LLE 5/5 RLE 5/5 Decreased cervical ROM with lateral bend Tone: Physiologic, no tremor, bradykinesia or rigidity DTR: Biceps, BR 2/4 Patellar 2/4 Gait: Normal to casual gait Romberg's Negative Review and summary of old records: Assessment/Plan Diagnoses and all orders for this visit: Neck pain Low back pain at multiple sites - cyclobenzaprine (Flexeril) 10 MG tablet; TAKE 1/2 TO 1 TABLET BY MOUTH EVERYDAY AT BEDTIME KENNEDY (obstructive sleep apnea) Primary insomnia 74-year-old female with bilateral shoulder pain, neck pain and myalgias with muscle spasms. This can fluctuate. Certain activities and over doing it flare it up. The nicer weather seems to have helped some of this and it is worse in the winter months. She also has low back pain and can get sciaticawhich at this time is also stable. Her left shoulder bothers her more than the right. We have done cervical trigger point injections in the past . When she gets them she does get at least 75% improvement. She had went approximately 21 months without needing these. She did repeat theseon 08/11/2024 and did again have at least 75% relieve and is very happy with the results. She had bilateral ONB with these. She does not feel the need to reschedule at this time. . She has tried at least 2 statins now and these have caused her myalgias that improve off. She is not on one and is working with PCP on this. . She has some osteoarthritis which can cause some knee and wrist pain. She had a previous EMG bilateral upper extremity that was normal. Have some degenerative disc disease in her lumbar spine. She has some kidney disease and renal artery stenosis that is being monitored. She may have some celiac stenosis 2 She does have a pain cream that she uses as needed to whatever is hurting. She gets some LLE pain when she drives in the car and may need to try to change the position she issitting in. This remains stable. She does have underlying obstructive sleep apnea with hypersomnolence and snoring that is controlled with the use of the CPAP machine and Ambien 10 mg. She repots continued compliance with it. She denies any new sleep complaints. She denies any issues with mask or machine. She is complaint on download ending 10/13/2024. She put the mask on > 4 hours 100 % of the days, with nightly average usage 8 hours 4 minutes, residual AHI 0.7. She does benefit from the machine. . . . Plan Continue Ambien 10 mg po at bedtime Continue flexeril 10 mg 1/2-1 at bedtime OARRS reviewed with refills and today, as expected Last ONB and cervical TPIs 08/11/2024 Compliance download reviewed Continue to be compliant with the CPAP Can get back into massage, use heat to loosen up muscle Continue with pain reliever cream from rheumo Make sure she is doing the exercises regularly as she is not Offered to increase the muscle relaxer and send her to PT for her neck and she declines at this time The patient was counseled on the risks of stroke, ID, and sudden with KENNEDY, along with the need for compliance with the CPAP/BiPAP treatment. The patient was counseled on proper sleep hygiene and adequate hours of sleep. The diagnosis was all discussed with the patient. All questions were answered and they agreed with the treatment plan. Patient will call if there are any new issues or questions. Pt has been fully educated on their diagnosis and treatment Return to clinic: 3 months documented in this [facility]04-01-2025 Telephone encounter Note* Telephone Encounter - Rony Bear MA - 10/05/2024 12:07 PM EDT Patient calls for refill of Ambien medication is pending. [facility] [id number] Miscellaneous Notes* Telephone Encounter - Rony Bear MA - 10/05/2024 12:07 PM EDT Patient calls for refill of Ambien medication is pending. documented in this [facility]02-05-2025 History of Present illness Narrative* Olive Gong DO - 08/11/2024 1:15 PM ESTAssociated Order(s): Trigger Point Injection: right semispinalis capitis, left semispinalis capitis, right splenius capitis, left splenius capitis, right upper trapezius, left upper trapezius Post-Procedure Diagnose(s): Neck pain Images from the original note were not included. Patient ID: Sari Abbasi is a 74 y.o. female. PROCEDURE: Trigger point injections LOCATION: .... Surgeon: Goldy Gong DO/ Maribeth Powers NP Purpose of the procedure: Trigger point injections were performed today due to the patient having significant myalgias muscle spasms and pain. The risks and benefits of the procedure were explained to the patient risks included but were not limited to: bleeding, infection, pneumothorax and pain. During consent for the procedure, the patient denies cow milk allergy, the patient verbally consented for the procedure. Procedure: The targeted areas were cleaned with an alcohol. The injections were done using sterile technique and cervicis anesthetic. The patient's semi spinalis capitis, splenius capitis and trapezius x2 Muscles were injected today with a physiologic solution of Depo-Medrol 40 mg/ 1 ml, Marcaine 0.25 percent 2 ml on each side. The patient tolerated the procedure well without complications. Trigger Point Injection: right semispinalis capitis, left semispinalis capitis, right splenius capitis, left splenius capitis, right upper trapezius, left upper trapezius on 08/11/2024 1:21 PM Indications: muscle spasm and myalgia Details: 25 G needle Medications: 4 mL bupivacaine 0.25 %; 80 mg methylPREDNISolone acetate 40 MG/ML Procedure, treatment alternatives, risks and benefits explained, specific risks discussed. Consent was given by the patient. documented in this encounterNOMS [id number] Telephone encounter Note* Telephone Encounter - Vera Llamas MA - 07/08/2024 11:11 AM EST Patient calls requesting reill of Zolpidem to [facility] [place] [facility] [id number] Miscellaneous Notes* Telephone Encounter - Vera Llamas MA - 07/08/2024 11:11 AM EST Patient calls requesting reill of Zolpidem to [facility] in [place] documented in this encounterDoctors Hospital of [id number] History of Present illness Narrative* José Luis Flores MD - 06/16/2024 11:30 AM EST Images from the original note were not included. José Luis Flores MD Obstetrics and Gynecology Patient: Sari Abbasi, : 1950 (74 y.o.) DOS 06/16/24 Exam Date: 06/16/2024 HPI: G+Q No issues Visit Vitals BP 112/62 Wt 172 lb BMI 25.40 kg/m OB Status Postmenopausal Smoking Status Former BSA 1.95 m OB History Para Term AB Living 3 3 3 0 0 3 SAB IAB Ectopic Multiple Live Births 0 0 0 0 3 # Outcome Date GA Lbr Coleman/2nd Weight Sex Type Anes PTL Lv 3 Term 2 Term 1 Term Obstetric Comments Pap: 06/27-Neg CANDICE Mammo: 01/26-Neg ([facility] DEXA: 07/27 Menopausal Medication and Allergies Medication Documentation Review Audit Reviewed by Antonia Escobar MA (Chemical Equipment Sales Engineer) on 06/16/24 at 1130 Medication Order Taking? Sig Documenting Provider Last Dose Status amLODIPine (Norvasc) 5 MG tablet [id number] No Take 10 mg by mouth Daily Historical Provider, Taking Active aspirin 81 MG EC tablet [id number] Take 81 mg by mouth every 7 (seven) days José Luis Flores MD Active azelastine (Astelin) 0.1 % nasal spray [id number] No Administer 1 spray into each nostril in the morning and 1 spray before bedtime. Use in each nostril as directed. Hudson Castañeda MD Taking Sdmbpmh17/14/24 5528 Black Pepper-Turmeric (Turmeric Curcumin) 5-1000 MG capsule [id number] No José Luis Flores MD Taking Active Cetirizine HCl (ZYRTEC ALLERGY PO) [id number] No José Luis Flores MD Taking Active cholecalciferol (Vitamin D-3) 100 MCG (4000 UT) capsule [id number] No Take by mouth Daily José Luis Flores MD Taking Active colchicine 0.6 MG tablet [id number] No Take 0.6 mg by mouth in the morning. José Luis Flores MD TakingActive cyclobenzaprine (Flexeril) 10 MG tablet [id number] Take 0.5-1 tablets (5-10 mg) by mouth at bedtime Olive Gong DO Active desonide (DesOwen) 0.05 % cream [id number] No Apply topically 2 (two) times a day. Historical Provider, Taking Active esomeprazole (NexIUM) [address] capsule [id number] No Take 20 mg by mouth in the morning. Take before meals. Historical Provider, Taking Active fluticasone (Flonase) 50 MCG/ACT nasal spray [id number] No Administer 1 spray into each nostril Dailyas needed for rhinitis Hudson Castañeda MD Taking Active gabapentin (Neurontin) 100 MG capsule [id number] No 1 po daily -bid Olive Gong DO Taking Active L-lysine 1000 MG tablet [id number] No Take by mouth Daily José Luis Flores MD Taking Active lidocaine (Lidoderm) 5 % patch [id number] No Apply 1 patch topically if needed. Historical Provider, Taking Active losartan (Cozaar) 100 MG tablet [id number] No Take 100 mg by mouth in the morning. Historical ProviderMD Taking Active magnesium oxide 500 MG tablet [id number] No Take by mouth José Luis Flores MD Taking Active Misc Natural Products (FIBER 7 PO) [id number] No if needed Historical ProviderMD Taking Active MULTIPLE VITAMIN IV [id number] No 1 (one) time each day at the same time. Historical Provider, Taking Active naproxen (Naprosyn) 250 MG tablet [id number] No Take 250 mg by mouth Daily as needed for mild pain Hudson Castañeda MD Taking Active polyethylene glycol, PEG, 3350 (MiraLax) 17 GM/SCOOP powder [id number] No Take 17 g by mouth Daily Historical ProviderMD Taking Active Probiotic Product (CULTURELLE PROBIOTICS PO) [id number] No José Luis Flores MD Taking Active sennosides (Senokot) 8.6 MG tablet [id number] No Take 1 tablet by mouth Daily Hudson Castañeda MD Taking Active zolpidem (Ambien) 10 MG tablet [id number] TAKE 1 TABLET (10 MG) BY MOUTH NEEDED AT BEDTIME FOR SLEEP Olive Gong, Active Allergies Allergen Reactions Pollen Extract Rosuvastatin myalgia Statins Other Muscle aches Past Medical History: Diagnosis Date Allergic Allergic rhinitis unspecified Anemia Anxiety Anxiety state (CMS/HCC) unspecified Back pain 07/09/2018 Blood infection 2012 E.coli -Dr. Iman Wallace Cataract Celiac artery stenosis (CMS/HCC) Cervical dystonia 02/11/2018 Cervical spondylosis Complication of statin therapy, subsequent encounter Constipation, unspecified Dizziness 02/11/2018 Dysfunctions associated with sleep stages or arousal from sleep Encounter for screening 2003 Fibrocystic breast 1980 GERD (gastroesophageal reflux disease) High cholesterol (CMS/HCC) Hyperlipidemia (CMS/HCC) Hypertension (CMS/HCC) Hypertensive urgency (CMS/HCC) malignant Insomnia 02/11/2018 Labile secondary hypertension (CMS/HCC) Lumbar spondylosis Menopause ovarian failure 1990 Myalgia 02/11/2018 Neck pain 02/11/2018 KENNEDY (obstructive sleep apnea) 01/11/2019 Osteoarthritis RA (rheumatoid arthritis) (CMS/HCC) Renal vein stenosis left Rheumatoid arthritis (CMS/HCC) Rheumatoid arthritis involving knee, unspecified laterality, unspecified whether rheumatoid factor present (CMS/HCC) Right knee pain 01/11/2019 Sciatica 05/2018 [facility], 1 night Sciatica 01/11/2019 Shoulder pain 01/11/2019 Sleep apnea treated with continuous positive airway pressure (CPAP) Sleep disorder Sphenoid sinusitis, unspecified chronicity Unspecified rotator cuff tear or rupture of right shoulder, not specified as traumatic Vertigo Past Surgical History: Procedure Laterality Date CATARACT EXTRACTION COLONOSCOPY COLONOSCOPY 01/2022 Dr. Gutierrez [facility] [place] 1992;11/11/2017 EYE SURGERY 10/2016 bilateral - lid removal, excess skin FOOT SURGERY Bilateral 11/11/2017 FOOT SURGERY right OTHER SURGICAL HISTORY 04/2017 right foot 1st MPJ - Dr. Quick TONSILLECTOMY 11/11/2017 VAGINAL DELIVERY x3 Physical Exam: Objective Physical Exam Constitutional: Appearance: Normal appearance. Genitourinary: Vulva normal. No vaginal discharge or bleeding. Right Adnexa: not palpable. Left Adnexa: not palpable. No cervical lesion. Uterus is not enlarged or tender. Breasts: Right: Normal. Left: Normal. Pulmonary: Effort: Pulmonary effort is normal. Abdominal: Palpations: Abdomen is soft. Neurological: Mental Status: She is alert. Associated Treatments and Results - ICD-10-CM 1. Cervical cancer screening Z12.4 IGP,rfx Aptima HPV all pth Assessment/Plan No orders of the defined types were placed in this encounter. documented in this encounterDoctors Hospital of [id number] History of Present illness Narrative* Hudson Castañeda MD - 05/20/2024 11:45 AM EST Images from the original note were not included. Patient ID: Sari Abbasi is a 73 y.o. female who presents for: Upper Respiratory Infection Patient complains of symptoms of a URI. Symptoms include congestion, nasal congestion, and productive cough with yellow colored sputum. Onset of symptoms was 6 days ago, and has been gradually worsening since that time. Treatment to date: nasal steroids. Pt states she started as nasal congestions/allergy type symptoms but it is progressively getting worse and moving more into the chest. Review of Systems Constitutional: Negative for chills and fever. HENT: Positive for congestion. Negative for ear pain, sinus pressure, sinus pain and sore throat. Respiratory: Positive for cough. Negative for shortness of breath and wheezing. Neurological: Negative for light-headedness and headaches. Objective In general the patient is pleasant and in no acute distress. Bilateral ears, canals are within normal limits. Right TM is transparent and somewhat retracted. Left TM is transparent and somewhat retracted. No fluid layer. Bilateral nares demonstrate inflamed mucosa. Oropharynx has moist mucosa there is no specific evidence of thrush. There is mild erythema of the pharynx. Shoddy bilateral anterior cervical adenopathy. No signs of respiratory distress. Patient is speaking full sentences. There are symmetrical breath sounds. No rhonchi or rales are appreciated. No wheezes. Skin is warm and dry Visit Vitals Pulse 68 Temp 98 F (Temporal) Ht 5' 9 Wt 174 lb SpO2 98% BMI 25.70 kg/m OB Status Postmenopausal Smoking Status Former BSA 1.96 m Allergies Allergen Reactions Pollen Extract Rosuvastatin myalgia [...] MCG (4000 UT) capsule Take by mouth Daily colchicine 0.6 MG tablet Take 0.6 mg by mouth in the morning. cyclobenzaprine (Flexeril) 10 MG tablet Take 0.5-1 tablets (5-10 mg) by mouth at bedtime 30 tablet 2 desonide (DesOwen) 0.05 % cream Apply topically 2 (two) times a day. esomeprazole (NexIUM) [address] capsule Take 20 mg by mouth in the morning. Take before meals. fluticasone (Flonase) 50 MCG/ACT nasal spray Administer 1 spray into each nostril Daily as needed for rhinitis 48 g 0 gabapentin (Neurontin) 100 MG capsule 1 po daily -bid 180 capsule 1 L-lysine 1000 MG tablet Take by mouth Daily lidocaine (Lidoderm) 5 % patch Apply 1 patch topically if needed. losartan (Cozaar) 100 MG tablet Take 100 mg by mouth in the morning. magnesium oxide 500 MG tablet Take by mouth Misc Natural Products (FIBER 7 PO) if needed MULTIPLE VITAMIN IV 1 (one) time each day at the same time. naproxen (Naprosyn) 250 MG tablet Take 250 mg by mouth Daily as needed for mild pain Nirmatrelvir&Ritonavir 300/100 (Paxlovid, 300/100,) 20 x 150 MG & 10 x 100MG tablet therapypack Take 3 tablets by mouth in the morning and 3 tablets before bedtime. 1 each 0 polyethylene glycol, PEG, 3350 (MiraLax) 17 GM/SCOOP powder Take 17 g by mouth Daily Probiotic Product (CULTURELLE PROBIOTICS PO) sennosides (Senokot) 8.6 MG tablet Take 1 tablet by mouth Daily zolpidem (Ambien) 10 MG tablet TAKE 1 TABLET (10 MG) BY MOUTH NEEDED AT BEDTIME FOR SLEEP 30 tablet 2 No current facility-administered medications on file prior to visit. 1. Bronchitis (Primary) Acute problem. Been going on for almost 7 days, historically she does get into moderate pneumonitis and pneumonia.She has colored sputum production. We will empirically treat. In prescribing a new medication consideration of the following encompasses moderate decision making: the current prescriptions and supplements, the current allergies and medication intolerances, the current medical conditions, and potential drug interactions. Risks, benefits, and reason for starting their medication were discussed. The patient was given a chance to ask questions today and all questions were answered. The patient is to contact us if any other questions arise or if any problems occur with the adjustment in their medication. - cefuroxime (Ceftin) 500 MG tablet; Take 1 tablet (500 mg) by mouth in the morning and 1 tablet (500 mg) before bedtime. Do all this for 7 days. Dispense: 14 tablet; Refill: 0 2. Polypharmacy Chronic problem The patient meets the criteria for polypharmacy; 5 or more prescriptions or multi-morbidity definedas 5 or more diagnoses. Polypharmacy can significantly increase the risk of preventable adverse drug events and negatively impact adherence. Consideration of diverse factors such as clinician agreement, patient perspective,and de-prescribing, as appropriate can improve patient outcomes while simplifying care. This requires longitudinal monitoring as there is at least a moderate risk of morbidity and requires at least amoderate degree of evaluation and management. documented in this encounterDoctors Hospital of [id number] Telephone encounter Note* Telephone Encounter - Tereso Vásquez MA - 04/12/2024 9:14 AM EDT [facility] reviewed 03.15.24 [facility] [id number] Miscellaneous Notes* Telephone Encounter - Tereso Vásquez MA - 04/12/2024 9:14 AM EDT [facility] reviewed 03.15.24 documented in this encounterDoctors Hospital of [id number] History of Present illness Narrative* Hudson Castañeda MD - 03/29/2024 11:30 AM EDT Images from the original note were not included. Subjective : Chief Complaint: Sari Abbasi is an 73 y.o. female here for an annual wellness visit. I have reviewed and reconciled the history and medication list with the patient today. Current Outpatient Medications Medication Sig Dispense Refill amLODIPine (Norvasc) 5 [...] MCG (4000 UT) capsule Take by mouth Daily colchicine 0.6 MG tablet Take 0.6 mg by mouth in the morning. cyclobenzaprine (Flexeril) 10 MG tablet Take 0.5-1 tablets (5-10 mg) by mouth at bedtime 30 tablet 2 desonide (DesOwen) 0.05 % cream Apply topically 2 (two) times a day. esomeprazole (NexIUM) [address] capsule Take 20 mg by mouth in the morning. Take before meals. fluticasone (Flonase) 50 MCG/ACT nasal spray Administer 1 spray into each nostril Daily as needed for rhinitis 48 g 0 gabapentin (Neurontin) 100 MG capsule 1 po daily -bid 180 capsule 1 L-lysine 1000 MG tablet Take by mouth Daily lidocaine (Lidoderm) 5 % patch Apply 1 patch topically if needed. losartan (Cozaar) 100 MG tablet Take 100 mg by mouth in the morning. magnesium oxide 500 MG tablet Take by mouth Misc Natural Products (FIBER 7 PO) if needed MULTIPLE VITAMIN IV 1 (one) time each day at the same time. naproxen (Naprosyn) 250 MG tablet Take 250 [...] 30 tablet 2 No current facility-administered medications for this visit. Review of Systems unremarkable except as mentioned List of current healthcare providers: Patient Care Team: Hudson Castañeda MD as PCP - General Hudson Castañeda MD as PCP - ACO Reach Gonsalo Orta MD as Referring Physician (Nephrology) Dr. Gong neurology Dr. López vascular surgery Dr. Stafford rheumatology Medicare Annual Visit Over the past 2 weeks, how often have you been bothered by any of the following problems? Little interest or pleasure in doing things: Not at all Feeling down, depressed, or hopeless: Not at all Patient Health Questionnaire-2 Score: 0 Yarbrough Fall Risk History of Falling, Immediate or Within 3 Months: No Secondary Diagnosis: No Ambulatory Aid: Walks without aid/bedrest/nurse assist Intravenous Therapy/Heparin Lock: No Gait/Transferring: Normal/bedrest/immobile Mental Status: Oriented to own ability Yarbrough Fall Risk Score: 0 Health Risk Assessment Form Do you need help eating, bathing, using the toilet, dressing, or getting around your home?: No Can you prepare your own meals?: Yes Can you do your own housework without help?: Yes Can you shop for groceries or clothes without help?: Yes Do you exercise for about 20 minutes 3 or more days a week?: Yes How confident are you that you can control and manage most of your health problems?: Very confident Can you mange your money, credit cards and accounts, pay bills and taxes?: Yes Vision Screening: Yes, 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 project engineer/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 Physical Exam The patient is pleasant and in no acute distress The patient does not appear to have a gross neurologic deficit. The patient has good eye contact and clear speech Assessment/Plan : The following health maintenance schedule was reviewed with the patient and provided in printed form in the after visit summary: Health Maintenance Topic Date Due Medicare Annual Wellness (AWV) 07/02/2023 Mammogram 01/09/2024 Influenza Vaccine (1) 05/24/2024 (Originally 03/07/2024) Colorectal Cancer Screening 02/01/2032 Pneumococcal Vaccine: 65+ Years Completed 1. Encounter for Medicare annual wellness exam The patient is here for their Annual Medicare Wellness visit. Demographics were updated. Self-assessment was completed and reviewed. Past medical, family, and social history were updated. The medication list updated and reviewed by the doctor. A list of other current medical providers is established and updated. Time was spent discussing health maintenance issues, ordering testing as appropriate,and a schedule was reviewed regarding recommended screening. We discussed safety issues and fall risk. Depression screening was completed and addressed as appropriate. Fall screening was completed and addressed. Cognitive function was assessed by direct observation, cognitive screening as indicated, and assessment of ability to perform ADL's. The BMI and discussed. Major risk factors for chronic disease including family history were discussed. An after visit summary is made available to the patient 2. Advance directive discussed with patient Patient voluntarily agreed to discuss advance care planning at today's wellness visit. We discussed that an advance directive is a legal document that only goes into effect if the patient is incapacitated and unable to speak for themselves. This would help us to decide what care the patient would want. We discussed emergency treatments to keep the patient alive such as CPR, ventilator use and concept of comfort. We discussed how patients could make their wishes known through a living will, durable power of transactional attorney for healthcare, or other advanced directives. We discussed telling ba people about their advance and a copy will be kept in the EHR. I discussedthat they should also make me an emergency contact in their cell phone, and/or notify their POA that I have a copy of the advanced directives. 3. Encounter for screening for other disorder Clinically insignificant depression screening 4. Screening for alcohol problem Negative alcohol screening 5. Polypharmacy polypharmacy 6. Overweight (BMI 25.0-29.9) Going in exercising with her at pulmonary rehab, discussed and mild modifications to exercise. 7. Myalgia due to statin Chronic problem documented for multiple statins. Exclusionary diagnosis for the HEDIS measures 8. Atherosclerosis of renal artery (CMS/HCC) Complication of the mixed dyslipidemia with stable kidney function. Monitor longitudinally. 9. Benign essential HTN (CMS/HCC) Chronic problem, stable, to goal 10. Left renal artery stenosis (CMS/HCC) Complication of the mixed dyslipidemia with stable kidney function. Monitor longitudinally. 11. Mixed hyperlipidemia (CMS/HCC) Chronic problem that is currently being treated with lifestyle changes due to the statin intolerance. 12. 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) Chronic problem, stable, being treated by Rheumatology. Electronically signed by Hudson Castañeda MD on March 29, 2024 documented in this encounterDoctors Hospital of [id number] History of Present illness Narrative* Olive Gong, - 03/02/2024 11:45 AM EDT Chief Complaint Patient presents with Neck Pain Subjective Sari Abbasi, 73 y.o., female here for a follow up. Patient states that she is doing well. Her neck and shoulder pain along with her sciatic pain have been under control. She has slight pain that she describes as tension. She states since being taken off losartan her leg pain improved. She states that since the weather changed and it has been a little warmer this has been a lot better. Pt states that she is sleeping fine. Pt states that she is getting about 6-8 hrs of sleep. Pt states that she is wearing her machine. She denies any issues with her machine. She is stable at this point in time. When she is in the car driving she will get a pain in her left leg and she has to stretch it out. As soon as she stands up she it is better. She is rarely a passenger but gets it sometimes. She needs refills of gabapentin, She is getting the exercise in. She is walking and doing the neck exercises. She has been very active. She has not gotten in for massage. She states that this was exacerbating her symptoms so she stopped this for now. She is tolerating her meds. 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 Past Medical History: Diagnosis Date Allergic Allergic rhinitis unspecified Anemia Anxiety Anxiety state (CMS/HCC) unspecified Back pain 07/09/2018 Blood infection 2012 E.coli -Dr. Iman Wallace Cataract Celiac artery stenosis (CMS/HCC) Cervical dystonia 02/11/2018 Cervical spondylosis Complication of statin therapy, subsequent encounter Constipation, unspecified Dizziness 02/11/2018 Dysfunctions associated with sleep stages or arousal from sleep Encounter for screening 2003 Fibrocystic breast 1980 GERD (gastroesophageal reflux disease) High cholesterol (CMS/HCC) Hyperlipidemia (CMS/HCC) Hypertension (CMS/HCC) Hypertensive urgency (CMS/HCC) malignant Insomnia 02/11/2018 Labile secondary hypertension (CMS/HCC) Lumbar spondylosis Menopause ovarian failure 1989 Myalgia 02/11/2018 Neck pain 02/11/2018 KENNEDY (obstructive sleep apnea) 01/11/2019 Osteoarthritis RA (rheumatoid arthritis) (CMS/HCC) Renal vein stenosis left Rheumatoid arthritis (CMS/HCC) Rheumatoid arthritis involving knee, unspecified laterality, unspecified whether rheumatoid factor present (CMS/HCC) Right knee pain 01/11/2019 Sciatica 05/2018 [facility], 1 night Sciatica 01/11/2019 Shoulder pain 01/11/2019 Sleep apnea treated with continuous positive airway pressure (CPAP) Sleep disorder Sphenoid sinusitis, unspecified chronicity Unspecified rotator cuff tear or rupture of right shoulder, not specified as traumatic Vertigo Past Surgical History: Procedure Laterality Date CATARACT EXTRACTION COLONOSCOPY COLONOSCOPY 01/2022 Dr. Gutierrez [facility] 1992;11/11/2017 EYE SURGERY 10/2016 bilateral - lid removal, excess skin FOOT SURGERY Bilateral 11/11/2017 FOOT SURGERY right OTHER SURGICAL HISTORY 04/2017 right foot 1st MPJ - Dr. Quick TONSILLECTOMY 11/11/2017 VAGINAL DELIVERY x3 Family History Problem Relation Name Age of Onset Other (stomach trouble) Mother Leukemia Father Brock Hypertension Father Brock Cancer Father Brock No Known Problems Sister No Known Problems Son No Known Problems Daughter Ovarian cancer Sister Maame Cancer Sister Maame Social History Tobacco Use Smoking status: Former Current packs/day: 0.00 Average packs/day: 1.5 packs/day for 22.5 years (33.7 ttl pk-yrs) Types: Cigarettes Start date: 07/07/1974 Quit date: 01/04/1997 Years since quittin.1 Smokeless tobacco: Never Substance Use Topics Alcohol use: Not Currently Comment: caffeine intake: 1-2 cups per day; coffee / 2-3 cups per day Allergies: Pollen extract General: No fever or chills HEENT: No nasal congestion or runny nose Pulmonary: No shortness of breath or cough Cardiovascular: No chest pain or palpitations GI: No nausea or vomiting : No dysuria or hematuria Musculoskeletal: No new aches or pains or muscle weakness Infectious: no recurrent fevers or infections Dermatologic: No rashes or skin lesions Neurologic: No new headaches or dizziness Vitals: 03/02/24 1150 BP: 126/74 Pulse: 60 SpO2: 99% There is no height or weight on file to calculate BMI. Neurologic exam: Mental status: Awake, alert to person, place and time. Recent and remote memory are intact. Attention and concentration are normal. Fund of knowledge is appropriate for level of education. HEENT: NC/AT Cranial nerves: CN II: Visual acuity is normal. Visual kign full to confrontation. CN III, IV, : pupils equal round and reactive to light. Extraocular movements intact. No ptosis present. CN V: Facial sensation is normal. CN VII: Full and symmetric facial movement. CN VIII: Hearing is normal CN IX and X: Palate elevates symmetrically. Normal gag reflex. CN XI: Shoulder shrug is normal bilaterally. CN XII: Tongue is midline without atrophy or fasciculation. Speech: Clear and fluent no aphasia or dysarthria Pronator drift: Negative bilateral upper extremity Coordination: Intact, no signs of dysmetria Good finger to nose and rapid alternating movements Sensory: Sensation is intact to light, temperature and vibratory touch throughout four extremities. Pinprick intact in all four extremities. Motor: LUE 5/5 RUE 5/5 LLE 5/5 RLE 5/5 Tone: Physiologic, no tremor, bradykinesia or rigidity DTR: Biceps, BR 2/4 Patellar 2/4 Gait: Normal to casual gait Romberg's Negative Review and summary of old records: Assessment/Plan Diagnoses and all orders for this visit: Neck pain Chronic low back pain with bilateral sciatica, unspecified back pain laterality Myalgia Primary insomnia KENNEDY (obstructive sleep apnea) Sciatica, unspecified laterality 73-year-old female with bilateral shoulder pain, neck pain and myalgias with muscle spasms. This can fluctuate but it overall control. The nicer weather seems to have helped some of this. She also has low back pain and can get sciatica which at this time is also stable. We have done trigger point injections in the past but she has not needed them since last November/2022. When she gets them she does get 75% improvement. She has some osteoarthritis which can cause some knee and wrist pain. She had a previous EMG bilateral upper extremity that was normal. Have some degenerative disc disease in her lumbar spine. She has some kidney disease and renal artery stenosis that is being monitored. She may have some celiac stenosis She gets some LLE pain when she drives in the car and may need to try to change the position she issitting in. She does have underlying obstructive sleep apnea with hypersomnolence and snoring that is controlled with the use of the CPAP machine. She repots continued compliance with it she has getting a littlemore than 7 to 7-1/2 hours of sleep. She denies any new sleep complaints. Plan Cont to be compliant with the CPAP Discussed [facility] and she is tolerating the CPAP well so will continue with that. Continue the current medications Monitor for any worsening and can call and we can consider trigger point injections Can get back into massage Make sure she is doing the exercises regularly Consider triggers if the pain worsens. The patient was counseled on the risks of stroke, ID, and sudden with KENNEDY, along with the need for compliance with the CPAP/BiPAP treatment. The patient was counseled on proper sleep hygiene and adequate hours of sleep. The diagnosis was all discussed with the patient. All questions were answered and they agreed with the treatment plan. Patient will call if there are any new issues or questions. Pt has been fully educated on their diagnosis and treatment Return to clinic: 3 months documented in this encounterLisa [place] [id number] History of Present illness Narrative* Deb López MD - 12/08/2023 4:05 PM EDT Vascular Surgery Video Visit 12/08/23 The patient requested a video visit to review results of her testing. The patient has a history of left renal artery stenosis. Her blood pressure is well- controlled. We have been performing regular surveillance scans of her renal artery. Most recent renal artery duplex scan in October showed normal renal artery hemodynamics, however showed hemodynamically significant stenosis in the celiac artery. She had a mesenteric duplex scan in November which showed >70% stenosis in the celiac artery however the SMA and JOE were both normal. The patient reports occasional post-prandial abdominal pain which is improved if she eats Tums. She states it does not occur every time she eats. She denies weight loss, states she has actually gained some weight. No food fear. I reviewed testing which did shows elevated velocities in the celiac artery however no significant disease in the other mesenteric vessels. She does not have any recent CT scans to review. She currently denies consistent post- prandial abdominal pain, food fear, or weight loss. At this point I do not believe she is symptomatic from chronic mesenteric ischemia. We will continue to monitor her symptoms and treat medically with Lipitor. I recommended she start aspirin 81 mg. I will order a renal artery duplex scan in six months. Start time: 12/08/2023 4:31 PM EDT End time: 12/08/2023 5:04 PM EDT 27m 34s documented in this encounterBrecksville [facility]04[facility]29-[facility] History of Present illness Narrative* Pricilla Lobato, MOLD CLOSER HELPER-SEO MANAGER - 11/03/2023 1:15 PM EDT Images from the original note were not included. Sari Abbasi is a pleasant 73 year old female here for history of left renal artery stenosis. Denies any neurologic symptoms such as headache or dizziness. Blood pressure has been well controlled on current meds. She is currently on 2 anti hypertensive medications. She has not had any changes in her health and is trying to be more active and watch her diet. She does endorse over the last couple months indigestion after eating but nothing significant. No changes in her bowel habit she has been taking Tums if she needs to. Blood pressure is fairly well controlled. Chief Complaint Patient presents with Follow-up Follow up with recent testing. Patient Active Problem List Diagnosis Renal artery stenosis (CMS-HCC) BP 140/80 (BP Site: Left Arm, BP Postition: Sitting, BP CUFF SIZE: M (9-13 inches)) Pulse 68 Resp 18 Ht 175.3 cm (5' 9 ) Wt 78.3 kg (172 lb 9.6 oz) BMI 25.49 kg/m Past Medical History: Diagnosis Date Chronic rheumatic arthritis (CMS-HCC) Hypertension Renal artery stenosis (CMS-HCC) Past Surgical History: Procedure Laterality Date FOOT SURGERY TONSILLECTOMY ROS: Constitutional: Denies fever or chills, fatigue Eyes: Denies change in visual acuity, blurred vision, itching HENT: Denies nasal congestion or sore throat Respiratory: Denies cough or shortness of breath, difficulty breathing Cardiovascular: Denies chest pain or edema GI: Denies abdominal pain, nausea, vomiting, bloody stools or diarrhea : Denies dysuria, frequency, urgency Musculoskeletal: Denies back pain or joint pain Integument: Denies rash, itching, dryness Neurologic: Denies headache, focal weakness or sensory changes Endocrine: Denies polyuria or polydipsia, Lymphatic: Denies swollen glands, Psychiatric: Denies depression or anxiety Physical findings HEENT - Normocephalic, Atraumatic, Perrla, Eomi Neck- Supple, no TM Carotids - Bruit is absent bilaterally Lungs - Clear to auscultation. CV- Regular rate and rythym, no murmurs rubs or gallops Abdomen - Non tender, non distended, no masses Pulses Right - Femoral present, pedal present Pulses Left - Femoral present, pedal present The follow tests were evaluated and include: Renal Ultrasound - Assessment: Encounter Diagnoses Name Primary? Celiac artery stenosis (CMS-HCC) Yes Epigastric pain Plan of care: Sari is doing well. Her renal artery duplex demonstrates bilateral normal renal artery hemodynamics. Normal kidney size. Patent renal vein. 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 Given the celiac artery stenosis we will plan to check a mesenteric duplex to evaluate the arteries in her abdomen and have her follow-up in 4 weeks to evaluate. Continue with risk factor modification, lipid control, blood pressure control. Monitor for signs of neurologic symptoms. Followin in 4 weeks with mesenteric duplex studies. KOFI Bentley APRN-CNP 11/03/23 [id number] documented in this encounterBrecksville [facility]06-[facility] Evaluation note* Encounter Date Diagnosis Assessment Notes Treatment Notes Treatment Clinical Notes Dec, Renovascular hypertension (ICD-10 - I15.0) [...] within the goal. Will check Iron studies. [facility] Other 01-13-2023 NoteHISTORY: Knee pain TECHNIQUE: Duplex [...] signed by Juan Wan on 07/19/2022 [id number] [id number] [facility] Evaluation note* Encounter Date Diagnosis Assessment Notes Treatment Notes Treatment Clinical Notes Jan, Screening for colon cancer (ICD-10 - Z12.11) [facility] Other 05-26-2022 Evaluation note* Encounter Date Diagnosis [...] Colonoscopy . Advised her to schedule it [facility] Other 10-28-2021 NoteHNO ID: [id number] Author: Jose G Wells MD Service: Vascular Surgery Author Type: Physician Type: Progress Notes Filed: 05/07/2021 7:30 AM Note Text: NAME: SARI ABBASI [facility] NO: [id number] DATE OF SERVICE: 05/03/2021 DATE OF : [...] She has had an ultrasound done at [facility] that was done in February which still [...] Jose G Wells M.D. SPL/089 Audio #: [id number] Date Dictated: 04/19/2021 23:17:18 Date Typed: 05/03/2021 14:30:58 Date Revised: 05/03/2021 16:03:18[facility]10-28-2021 NoteHNO ID: [id number] Author: Jose G Wells MD Service: ? Author Type: Physician Type: Progress Notes Filed: 05/03/2021 11:53 AM Note Text: Here for f/u of unilateral renal artery stenosis with well-controlled hypertension Heart , Vascular and Thoracic [place] DEPARTMENT OF VASCULAR SURGERY OUTPATIENT VISIT DATE [...] TIME OF SERVICE: 11:20 AM Medical Decision MakingLakeHealth Beachwood Medical Centeraluation noteNo assessment information availablePike Community [facility]tr Work Phone: Evaluation noteNo InformationNort WebChalet Other Evaluation note* Diagnosis Onset Date Resolution Status Chronic hyponatremia acute Hypercholesterolemia acute Renal artery stenosis acute Renovascular hypertension ac olamide Rheumatoid arthritis acute Vitamin D deficiency acute [facility] Work Phone: Evaluation note* Diagnosis Onset Date Resolution Status Chronic hyponatremia acute Hypercholesterolemia acute Renal artery stenosis acute Renovascular hypertension ac olamide Rheumatoid arthritis acute Vitamin D deficiency acute Sciatica acute [facility] Work Phone: Evaluation note* Diagnosis Primary insomnia Persistent disorder of initiating or maintaining sleep documented [facility]* Diagnosis KENNEDY (obstructive sleep apnea)- Primary Obstructive sleep apnea (adult) (pediatric) Myalgia Unspecified myalgia and myositis Chronic low back pain with bilateral sciatica, unspecified back pain laterality Neck pain Cervicalgia Primary insomnia Persistent disorder of initiating or maintaining sleep documented [facility] this [facility]* Diagnosis Bronchitis- Primary Bronchitis, not specified as acute or chronic Polypharmacy Issue of repeat prescriptions documented [facility] this [facility]* Diagnosis Well woman exam- Primary Routine general medical examination at a health care facility Cervical cancer screening Screening for malignant neoplasm of the cervix documented in this encounter [facility]* Diagnosis Neck pain- Primary Cervicalgia Chronic low back pain with bilateral sciatica, unspecified back pain laterality Myalgia Unspecified myalgia and myositis Primary insomnia Persistent disorder of initiating or maintaining sleep KENNEDY (obstructive sleep apnea) Obstructive sleep apnea (adult) (pediatric) Sciatica, unspecified laterality documented in this encounter [facility] Diagnosis Encounter for Medicare annual wellness exam- Primary Advance directive discussed with patient Encounter for screening for other disorder Screening for alcohol problem Screening for alcoholism Polypharmacy Issue of repeat prescriptions Overweight (BMI 25.0-29.9) Overweight Mixed hyperlipidemia (CMS/HCC) Mixed hyperlipidemia Myalgia due to statin Atherosclerosis of renal artery (CMS/HCC) Atherosclerosis of renal artery Benign essential HTN (CMS/HCC) Left renal artery stenosis (CMS/HCC) 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) documented in this encounter [facility]* Diagnosis Primary insomnia- Primary Persistent disorder of initiating or maintaining sleep documented in this encounter [facility]* Diagnosis Myalgia- Primary Unspecified myalgia and myositis Neck pain Cervicalgia documented in this encounter [facility]* Diagnosis Celiac artery stenosis (CMS-HCC)- Primary Stricture of artery Epigastric pain Abdominal pain, epigastric documented in this [facility] Diagnosis Renal artery stenosis (CMS-HCC)- Primary Atherosclerosis of renal artery [facility] Diagnosis Primary insomnia Persistent disorder of initiating or maintaining sleep documented in this encounter [facility]* Diagnosis Neck pain- Primary Cervicalgia Low back pain at multiple sites KENNEDY (obstructive sleep apnea) Obstructive sleep apnea (adult) (pediatric) Primary insomnia Persistent disorder of initiating or maintaining sleep documented in this encounter [facility]* Diagnosis Acute cystitis with hematuria- Primary Frequent urination Urinary frequency documented in this encounter [facility]* Diagnosis Skin tear of forearm without complication, initial encounter documented in this encounter [facility] HealthcareHistory and physical note Author Jordan Gutierrez [facility] January 31, 2022 8:44am Note Date/Time January 31, 2022 8:44 am [facility] [address] [place] [address] Gastroenterology H&P Signed Patient: Sari Abbasi MR#: [id number] : 1950 Acct:[id number] Age/Sex: 71 / F Adm Date: 2 Loc: Room: Type: [facility] Attending Dr: Jordan Gutierrez MD Copies [...] <Electronically signed by Jordan Gutierrez MD> 01/31/22843 [facility] Work Phone: Hisqody general Narrative - Reported* Type Description Date [...] Hospitalization History SCIATIC RIGHT SIDE PAIN 05/2018 [facility] Other Hiskkgn general Narrative - Reported* Type Description Date [...] Hospitalization History SCIATIC RIGHT SIDE PAIN 05/2018 [facility] Other InstructionsNot on filedocumented in this encounter [facility] [employer] SystemInstructionsNot on filedocumented in this encounter [facility] SystemReason for referral (narrative)No reason for referral [facility] Work Phone: Reason for visit Narrative* Other Medical (Routine) - Closed Specialty Diagnoses / Procedures Referred By Leelee garza Referred To Contact Neurology Diagnoses Neck pain Procedures Trigger Point Injection: right semispinalis capitis, left semispinalis capitis, right splenius capitis, left splenius capitis, right upper trapezius, left upper trapezius Olive Gong DO [address] [place] [address] Phone: tel: fax: Olive Gong DO [address] [place] [address] Phone: tel: fax: Referral ID Status Reason Start Date Expiration Date Visits Re quested Visits Authorized [id number] Closed 08/11/2024 02/07/2025 1 1 [facility] Healthcare Summary Purpose Family History No Family History [...] of ovarian cancer Unknown Malignant neoplasm Unknown Relationship Condition Age at Onset Recorded Date/T javon sister Malignant neoplasm of ovary Unknown father Leukemia Unknown father Malignant neoplasm Unknown Unknown Hypertension Unknown mother Unknown Family history of mental disorder Unknown sister History of ovarian cancer Unknown Malignant neoplasm Unknown Advance Directives No Advanced Directives Records Found Advance Directive Response Recorded Date/ Time Advance Directives No March 7:46am Advance Directive Response Recorded Date/ Time Advance Directives No March 8:46am Documents on File Type Date Recorded 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 Power of Electrotyper Helper 08/25/2024 3:53 PM 10-08 Living Will Advance Directives and Living Will 08/25/2024 3:49 PM 2022-10-08 Living Wi ll Documents on File Type Date Recorded 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 Power of Electrotyper Helper 08/25/2024 3:53 PM 10-08 Living Will Advance Directives and Living Will 08/25/2024 3:49 PM 2022-10-08 Living Wi ll Chief Complaint and Reason for Visit Chief [...] Rheumatoid arthritis Vitamin D deficiency Chief Complaint RENAL 1 yr f/u Right side low back pain radiating to leg Screening Reason for Visit Chronic hyponatremia Hypercholesterolemia Renal artery stenosis Renovascular hypertension Rheumatoid arthritis Vitamin D deficiency Sciatica Chief Complaint Screening See order Chief Complaint Admit Date Dysuria November 07, 2024 11:42a m Reason for Visit Admit Date Acute UTI November 07, 2024 11:42a m Chief Complaint Admit Date Dysuria November 07, 2024 11:42a m R30.0 November 07, 2024 12:19p m RENAL 1 YR F/U November 25, 2024 11:14 am Reason for Visit Admit Date Acute UTI November 07, 2024 11:42a m Anemia November 25, 2024 11:14 am Chronic hyponatremia November 25, 2024 11:1 4am Hypercholesterolemia November 25, 2024 11:1 4am Renal artery stenosis November 25, 2024 11: 14am Renovascular hypertension November 25, 2024 11:14am Rheumatoid arthritis November 25, 2024 11:1 4am Vitamin D deficiency November 25, 2024 11:1 4am Assessments No Assessments Information AvailableNo Assessments Information Available Reason for Referral Specialty Diagnoses / Procedures Referred By Contac t Referred To Contact Diagnoses Renal artery stenosis ([facility]) Procedures Vas renal artery duplex complete Deb López MD [address] [place] [address] Referral ID Status Reason Start Date Expiration Date V isits Requested Visits Authorized [id number] Pending Review 12/08/2023 12/07/2024 1 1 Specialty Diagnoses / Procedures Referred By Contac t Referred To Contact Diagnoses Celiac artery stenosis ([facility]) Epigastric pain Procedures Vas mesenteric artery duplex complete Pricilla Lobato, MOLD CLOSER HELPER-SEO MANAGER [address], [address] [place] [address] Referral ID Status Reason Start Date Expiration Date V isits Requested Visits Authorized [id number] Pending Review 11/03/2023 11/02/2024 1 1 Additional Source Comments INFORMATION SOURCE (unrecogn ized section and content) DATE CREATED AUTHOR 06/21/2018 [facility] DATE CREATED AUTHOR AUTHOR'S ORGANIZ ATION 08/11/2021 [facility] DATE CREATED AUTHOR AUTHOR'S ORGANIZ ATION 07/18/2022 [facility] DATE CREATED AUTHOR AUTHOR'S ORGANIZ ATION 07/19/2022 [facility] Special[facility] DATE CREATED AUTHOR AUTHOR'S ORGANIZ ATION 01/04/2024 [facility] DATE CREATED AUTHOR AUTHOR'S ORGANIZ ATION 06/17/2024 [facility] DATE CREATED AUTHOR AUTHOR'S ORGANIZ ATION 01/07/2025 [facility] DATE CREATED AUTHOR AUTHOR'S ORGANIZ ATION 01/07/2025 [facility] dical Specialists EPIC REASON FOR VISIT (unrecogniz ed section and content) Reason Comments Med Refill Reason Comments URI Reason Comments Neck Pain Reason Comments Annual Exam Reason Onset Date Comments Med Refill 07/08/2024 Reason Comments Follow-up Follow up with recen t testing. Reason Comments Follow-up Celiac artery testin g done Reason Onset Date Comments Med Refill 10/05/2024 Reason Comments Sleep Apnea Neck Pain Reason Comments UTI Reason Comments skin tear Care Teams (unrecognized sec tion and content) Team Status: Inactive Member Role Status Dates Hudson Castañeda MD Primary Care Provider Active Jordan Gutierrez MD Attending Provider Active Team Status: Inactive Member Role Status Dates Hudson Castañeda MD Primary Care Provider Active Kamari Virk MD Attending Provider Active José Luis Flores MD Referring Provider Active Team Status: Active [...] MD Primary Care Provider Active José Luis Flores MD Attending Provider Active Team Status: Inactive [...] 2023 Team Status: Inactive Member Role Status Hudson Castañeda MD Primary Care Provider Active Start: November 13, 2023 End: November 13, 2023 Gonsalo Orta MD Attending Provider Active Start : November 13, 2023 End: November 13, 2023 Team Status: Inactive Member Role Status Dates Hudson Castañeda MD Primary Care Provider Active Start: November 28, 2023 End: November 28, 2023 Antonia Adams APRN Attending Provider Active S tart: November 28, 2023 End: November 28, 2023 Team Status: Inactive Member Role Status Dates Hudson Castañeda MD Primary Care Provider Active Start: February 05, 2024 End: February 05, 2024 Referral Self Attending Provider Active Start: Du ugpawel 2023 End: February 05, 2024 Ems Helicopter Pilot Relationship Specialty Start Date End Date Hudson Castañeda MD [address] [facility] [place] [place] [address] (Fax) PCP - General 12/19/22 Hudson Castañeda MD [address] [facility] [address] (Fax) PCP - ACO Reach 09/05/23 Gonsalo Orta MD [address] [facility] [place] [address] Referring Physician Nephrology 11/17/23 Team Status: Inactive Member Role Status Dates Hudson Castañeda MD Primary Care Provider Active Start: April 23, 2024 End: April 23, 2024 Tamera Randall MD Attending Provider Active St art: April 23, 2024 End: April 23, 2024 Ems Helicopter Pilot Relationship Specialty Start Date End Date Hudson Castañeda MD [address] [place] [address] (Fax) PCP - General 12/19/22 Hudson Castañeda MD [address] [place] [address] (Fax) PCP - ACO Reach 09/05/23 Gonsalo Orta MD [address] [phone] Referring Physician Nephrology 11/17/23 Ems Helicopter Pilot Relationship Specialty Start Date End Date Hudson Castañeda MD [address] [place] [address] (Fax) PCP - General 12/19/22 Hudson Castañeda MD [address] [place] [address] (Fax) PCP - ACO Reach 09/05/23 Gonsalo Orta MD [address] [place] [address] Referring Physician Nephrology 11/17/23 Ems Helicopter Pilot Relationship Specialty Start Date End Date Hudson Castañeda MD [address] [address] (Fax) PCP - General 12/19/22 Hudson Castañeda MD [address] [address] (Fax) PCP - ACO Reach 09/05/23 Gonsalo Orta MD [address] [place] [address] Referring Physician Nephrology 11/17/23 Ems Helicopter Pilot Relationship Specialty Start Date End Date Hudson Castañeda MD [address] [address] (Fax) PCP - General 12/19/22 Hudson Castañeda MD [address] [address] (Fax) PCP - ACO Reach 09/05/23 Gonsalo Orta MD [address] [place] [address] Referring Physician Nephrology 11/17/23 Ems Helicopter Pilot Relationship Specialty Start Date End Date Hudson Castañeda MD [address] [address] (Fax) PCP - General 12/19/22 Hudson Castañeda MD [address] [place] [address] [address] [place] [address] (Fax) PCP - ACO Reach 09/05/23 Gonsalo Orta MD [address] [place] [address] Referring Physician Nephrology 11/17/23 Ems Helicopter Pilot Relationship Specialty Start Date End Date Hudson Castañeda MD [address] [place] [address] (Fax) PCP - General 12/19/22 Hudson Castañeda MD [address] [place] [address] (Fax) PCP - ACO Reach 09/05/23 Gonsalo Orta MD [address] [place] [phone] Referring Physician Nephrology 11/17/23 Ems Helicopter Pilot Relationship Specialty Start Date End Date Hudson Castañeda MD [address] [place] [address] (Fax) PCP - General 12/19/22 Hudson Castañeda MD [address] [place] [address] (Fax) PCP - ACO Reach 09/05/23 Gonsalo Orta MD [address] [place] [address] Referring Physician Nephrology 11/17/23 Ems Helicopter Pilot Relationship Specialty Start Date End Date Hudson Castañeda MD [address] [place] [address] (Fax) PCP - General 12/19/22 Hudson Castañeda MD [address] [place] [place] [address] (Fax) PCP - ACO Reach 09/05/23 Gonsalo Orta MD [address] [place] [address] Referring Physician Nephrology 11/17/23 Ems Helicopter Pilot Relationship Specialty Start Date End Date Hudson Castañeda MD [address] [place] [address] (Fax) PCP - General 12/19/22 Hudson Castañeda MD [address] [place] [address] (Fax) PCP - ACO Reach 09/05/23 Gonsalo Orta MD [address] [place] [address] Referring Physician Nephrology 11/17/23 Ems Helicopter Pilot Relationship Specialty Start Date End Date Hudson Castañeda MD [address] [place] [address] (Fax) PCP - General 12/19/22 Hudson Castañeda MD [address] [address] (Fax) PCP - ACO Reach 09/05/23 Gonsalo Orta MD [address] [place] [address] Referring Physician Nephrology 11/17/23 Ems Helicopter Pilot Relationship Specialty Start Date End Date Hudson Castañeda MD [address] [address] (Fax) PCP - General 12/19/22 Hudson Castañeda MD [address] [address] (Fax) PCP - ACO Reach 09/05/23 Gonsalo Orta MD [address] [place] [address] Referring Physician Nephrology 11/17/23 Olive Gong DO [address] [place] [address] Referring Physician Neurology 08/11/24 Ems Helicopter Pilot Relationship Specialty Start Date End Date Hudson Castañeda MD [address] [address] (Fax) PCP - General 12/19/22 Hudson Castañeda MD [address] [address] (Fax) PCP - ACO Reach 09/05/23 Gonsalo Orta MD [address] [place] [address] Referring Physician Nephrology 11/17/23 Olive Gong DO [address] [place] [address] Referring Physician Neurology 08/11/24 Ems Helicopter Pilot Relationship Specialty Start Date End Date Hudson Castañeda MD [address] [place] [address] (Fax) PCP - General 02/06/18 Ems Helicopter Pilot Relationship Specialty Start Date End Date Hudson Castañeda MD [address] [place] [address] (Fax) PCP - General 02/06/18 Ems Helicopter Pilot Relationship Specialty Start Date End Date Hudson Castañeda MD [address] [place] [address] (Fax) PCP - General 12/19/22 Hudson Castañeda MD [address] [place] [address] (Fax) PCP - ACO Reach 09/05/23 Gonsalo Orta MD [address] [facility] [place] [address] Referring Physician Nephrology 11/17/23 Olive Gong DO [address] [place] [address] Referring Physician Neurology 08/11/24 Ems Helicopter Pilot Relationship Specialty Start Date End Date Hudson Castañeda MD [address] [place] [address] (Fax) PCP - General 12/19/22 Hudson Castañeda MD [address] [place] [address] (Fax) PCP - ACO Reach 09/05/23 Gonsalo Orta MD [address] [place] [address] Referring Physician Nephrology 11/17/23 Olive Gong DO [address] [place] [address] Referring Physician Neurology 08/11/24 Ems Helicopter Pilot Relationship Specialty Start Date End Date Hudson Castañeda MD [address] [place] [address] (Fax) PCP - General 12/19/22 Hudson Castañeda MD [address] [place] [address] (Fax) PCP - ACO Reach 09/05/23 Gonsalo Orta MD [address] [place] [address] Referring Physician Nephrology 11/17/23 Olive Gong DO [address] [place] [address] Referring Physician Neurology 08/11/24 Maribeth Powers NP [address] [place], [place] Nurse Practitioner Neurology 10/21/24 Ems Helicopter Pilot Relationship Specialty Start Date End Date Hudson Castañeda MD [address] [place] [address] (Fax) PCP - General 12/19/22 Hudson Castañeda MD [address] [place] [address] (Fax) PCP - ACO Reach 09/05/23 Gonsalo Orta MD [address] [place] [address] Referring Physician Nephrology 11/17/23 Olive Gong DO [address] [place] [address] Referring Physician Neurology 08/11/24 Maribeth Powers NP [address] [place], [place] Nurse Practitioner Neurology 10/21/24 Ems Helicopter Pilot Relationship Specialty Start Date End Date Hudson Castañeda MD [address] [place] [address] (Fax) PCP - General 12/19/22 Hudson Castañeda MD [address] [place] [address] (Fax) PCP - ACO Reach 09/05/23 Gonsalo Orta MD [address] [place] [address] Referring Physician Nephrology 11/17/23 Olive Gong DO [address] [place] [address] Referring Physician Neurology 08/11/24 Maribeth Powers, YOEL [address] [place], [place] Nurse Practitioner Neurology 10/21/24 Team Status: Inactive Member Role Status Dates Hudson Castañeda MD Primary Care Provider Active Start: November 07, 2024 End: November 07, 2024 Kyra Gomes APRN Attending Provider Active Start: November 07, 2024 End: November 07, 2024 Team Status: Inactive Member Role Status Dates Kyra Gomes APRN Attending Provider Active Start: November 07, 2024 End: November 07, 2024 Ems Helicopter Pilot Relationship Specialty Start Date End Date Hudson Castañeda MD [address] [place] [address] PCP - General 12/19/22 Hudson Castañeda MD [address] [place] [address] PCP - ACO Reach 09/05/23 Gonsalo Orta MD [address] [place] [address] Referring Physician Nephrology 11/17/23 Olive Gong DO [address] [place] [address] Referring Physician Neurology 08/11/24 Maribeth Powers, YOEL [address] [place], [place] Nurse Practitioner Neurology 10/21/24 Team Status: Inactive Member Role Status Dates Kyra Gomes APRN Attending Provider Active Start: November 07, 2024 End: November 07, 2024 PHYSICIAN NO FAMILY Primary Care Provider Active Start: November 07, 2024 End: November 07, 2024 Team Status: Active Member Role Status Dates PHYSICIAN NO FAMILY Primary Care Provider Active Start: November 15, 2024 Gonsalo Orta MD Attending Provider Active Start : November 15, 2024 Team Status: Inactive Member Role Status Dates Gonsalo Orta MD Attending Provider Active Start : November 25, 2024 End: November 25, 2024 Hudson Castañeda MD Primary Care Provider Active Start: November 25, 2024 End: November 25, 2024 Team Status: Inactive Member Role Status Dates Hudson Castañeda MD Primary Care Provider Active Start: January 03, 2025 End: January 03, 2025 Tamera Randall MD Attending Provider Active St art: January 03, 2025 End: January 03, 2025 Ems Helicopter Pilot Relationship Specialty Start Date End Date Hudson Castañeda MD [address] [facility] [address] [place] [address] PCP - General 12/19/22 Hudson Castañeda MD [address] [address] PCP - ACO Reach 09/05/23 Gonsalo Orta MD [address] [address] Referring Physician Nephrology 11/17/23 Olive Gong DO [address] [place] [address] Referring Physician Neurology 08/11/24 Maribeth Powers NP [address] [place] [address] Nurse Practitioner Neurology 10/21/24 Goals (unrecognized section and content) Goals may [...] BE BASED ON THE PRIMARY CLINICAL RECORDS. [employer] [facility]. provides no warranty or guarantee of the accuracy or completeness of information in this document.
--- OUTSIDE RECORDS SUMMARY | 2025-01-08 19:30 | XMS_ITS | Encounter Summary ---
Author Organization [facility] Address [address] [place] [address] Care Team Providers Care General Superintendent Name Role Phone Hudson Lebron MD Primary Care Provider + [phone] Hudson Lebron MD Unavailable [phone] [place] Unavailable Estella Gong DO Unavailable [phone] Maribeth Powers NP Unavailable [phone] Reason for Visit * Reason Onset Date Comments Med Refill 07/29/2024 Encounter Details Date Type Department Care Team (Late st Contact Info) Description 07/29/2024 Refill [facility] [address] [place] [address] Hudson Lebron MD [address] [place] [address] (Fax) Non-seasonal allergic rhinitis due to pollen [...] week 12/30/2023 How often do you attend [facility] or nondenominational services? More than 4 times per year 12/30/2023 Do you belong to any clubs o r organizations such as moravian groups, unions, fraternal or athletic groups, or [...] Recorded Patient Health Questionnaire-2 Score 0 03/28/2024 [facility] of Occupat ional Health - Occupational Stress [...] place to sleep or slept in a fci (including now)? No 12/19/2022 Housing Stability Vital Sign Answer Giancarlo e Recorded In the last 12 months, was t here a time when you were not able to pay the mortgage or rent on time? No 12/30/2023 In the past 12 months, how m any times have you moved where you were living? 0 12/30/2023 At any time in the past 12 m [facility], were you homeless or living in a fci (including now)? No 12/30/2023 Education Answer Date [...] [address] [place] [address] [address] Luis Brennan MD [address] [place] [address] documented as of this encounter Visit Diagnoses Diagnosis Non-seasonal allergic rhinitis due to pollen documented in this encounter Care Teams General Superintendent Relationship Specialty Start Date End Date Hudson Lebron MD 112 [facility] 100 [place] [address] PCP - General 12/19/22 Hudson Lebron MD [address] [address] PCP - ACO Reach 09/05/23 Gonsalo [place] MD [address] [address] Referring Physician Nephrology 11/17/23 Estella Gong DO [address] [place] [address] Referring Physician Neurology 08/11/24 Maribeth Powers NP [address] [place] [address] Nurse Practitioner Neurology 10/21/24 documented as of this encounter
--- OUTSIDE RECORDS SUMMARY | 2025-01-08 19:30 | XMS_ITS | Encounter Summary ---
Author Organization [facility] Address [address] [place] [place] [address] Care Team Providers Care Library Specialist Name Role Phone Hudson Lebron MD Primary Care Provider + [phone] Hudson Lebron MD Unavailable [phone] German Stevens Unavailable Estella Gong DO Unavailable [phone] Maribeth Powers NP Unavailable [phone] Encounter Details Date Type Department Care Team (Late st Contact Info) Description 11/10/2024 Orders Only [facility] [address] [place] [address] Hudson Lebron MD [address] [place] [address] Social History Tobacco Use Types Packs/Day Years [...] How often do you attend chur or synagogue services? More than 4 times per year 12/30/2023 Do you belong to any clubs o r organizations such as orthodoxy groups, unions, fraternal or athletic groups, or [...] Recorded Patient Health Questionnaire-2 Score 0 10/25/2024 [facility] - [...] any time in the past 12 [facility], were you homeless or living in [...] [address] [place] [address] José Luis Brennan MD [address] [facility] [address] [place], [place] [id number] documented as of this encounter Visit Diagnoses Not on filedocumented in this encounter Care Teams Library Specialist Relationship Specialty Start Date End Date Hudson Lebron MD [address] [place] [address] PCP - General 12/19/22 Hudson Lebron MD [address] [place] [address] PCP - ACO Reach 09/05/23 Gonsalo Stevens MD [address] [place] [address] Referring Physician Nephrology 11/17/23 Estella Gong DO [address] [place] [address] Referring Physician Neurology 08/11/24 Maribeth Powers NP [address] [place] [address] Nurse Practitioner Neurology 10/21/24 documented as of this encounter
--- OUTSIDE RECORDS SUMMARY | 2025-01-08 19:30 | XMS_ITS | Clinical Summary ---
Author Organization [email or web address] Address [id number] [address] [place] [address] Care Team Providers Care Kiln Firer Name Role Phone Hudson Lebron MD Primary Care Provider + [phone] Allergies Active Allergy Reactions Criticality Noted Date Comments Pollen Extracts 02/09/2018 Medications fluticasone (FLONASE) 50 mcg/actuation nasal spray SPRAY 1 SPRAY INTO EACH NOSTRIL EVERY DAY 1 8 Active zolpidem (AMBIEN) 10 mg tablet Take 1 tablet (10 mg total) by mouth nightly. 2 8 Active atorvastatin (LIPITOR) 20 mg tablet Take 1 tablet (20 mg total) by mouth in the morning. 1 8 Active cloNIDine (CATAPRES) 0.1 mg tablet TAKE 1 TAB BY MOUTH 2X'S A DAY *MAY USE 1 EXTRA TAB DAILY FOR B/P SYSTOLIC > 180 OR DIASTOLIC > 100* 1 8 Active lidocaine (LIDODERM) 5 % APPLY 1 PATCH TO AFFECTED AREA FOR 12 HOURS ON,12 HOURS OFF 3 8 Active meclizine (ANTIVERT) 25 mg tablet TAKE 1 TABLET BY MOUTH ONCE A DAY NEEDED 0 8 Active fexofenadine (MAXIMINO) 180 mg tablet Take 180 mg by mouth daily as needed. 1 8 Active predniSONE (DELTASONE) 1 mg tablet Take 1 mg by mouth daily with breakfast. Active losartan (COZAAR) 25 mg tablet Take 4 tablets (100 mg total) by mouth in the morning. 0 09/13/201 8 Active krill oil 500 mg capsule Take by mouth. Acti ve magnesium oxide 500 mg tablet Take by mouth. A ctive esomeprazole (NexIUM) 20 mg capsule Take 1 capsule (20 mg total) by mouth every morning before breakfast. Active cyclobenzaprine (FLEXERIL) 5 mg tablet Take 1 tablet (5 mg total) by mouth 3 (three) times a day as needed for muscle spasms. Active gabapentin (NEURONTIN) 100 mg capsule Take 1 capsule (100 mg total) by mouth daily as needed. Active amLODIPine (NORVASC) 5 mg tablet Take 1 tablet (5 mg total) by mouth in the morning. Reports she is taking it PRN for blood pressure greater than 140/90. Active Active Problems Problem Noted Date Diagnosed Date Renal artery stenosis 02/09/2018 Family History Medical History Relation Name Comments COPD Mother Kidney disease Mother Relation Name Status Comments Father Mother Social History Tobacco Use Types Packs/Day Years Used Date Smoking Tobacco: Former Smokeless Tobacco: Never Tobacco Cessation:Counseling Given: Not Answered Childcare Answer Date Recorded Childcare Unknown 12/17/2018 Employment Answer Date Recorded Employment Unknown 12/17/2018 Hunger Screening Answer Date Recorded Within the past 12 months we worried whether our food would run out before we got money to buy more. Never True 11/03/2023 Within the past 12 months th e food we bought just didn't last and we didn't have money to get more. Never True 11/03/2023 Purpose - Life Answer Date Recorded Purpose and direction in life Unknown Comments No Sex and Gender Information Value Date Recorded Sex Assigned at Female 03/24/2021 10:42 AM EDT Legal Sex Female 12:03 PM EDT Gender Identity Female 03/24/2021 10:42 AM EDT Sexual Orientation Straight 03/24/2021 10 :42 AM EDT Last Filed Vital Signs Vital Sign Reading Time Taken Comments Blood Pressure 147/68 12/08/2023 4:56 PM EDT Pulse 68 11/03/2023 1:09 PM EDT Temperature 36.4 C (97.5 F) 12/27/2019 10:59 AM EDT Respiratory Rate 18 11/03/2023 1:09 PM EDT Oxygen Saturation - - Inhaled Oxygen Concentration - - Weight 76.7 kg (169 lb) 12/08/2023 4:56 PM EDT Height 175.3 cm (5' 9 ) 11/03/2023 1:09 PM EDT Body Mass Index 24.96 11/03/2023 1:09 PM EDT Plan of Treatment Health Maintenance Due Date Last Done Comments Depression Screening 1962 DTaP,Tdap and Td Vaccines (1 - Tdap) 1969 Zoster (Shingles) Vaccine (1 of 2) 2000 Fall Risk Screening 2015 COVID-19 Vaccine (5 - 2023-2 5 season) 2024 05/05/2023, 04/21/2021, 08/26/2020, Additional history exists Adult BMI Screening 12/07/2024 12/08/2023 Tobacco Screening 12/07/2024 12/08/2023 Influenza Vaccine 03/07/2025 05/13/2024, , 04/26/2022, Additional history exists Medical Devices Not on file Insurance [facility] Care Teams Kiln Firer Relationship Specialty Start Date End Date Hudson Lebron MD PCP - General 02/06/18
--- OUTSIDE RECORDS SUMMARY | 2025-01-08 19:30 | XMS_ITS | Encounter Summary ---
Author Organization [facility] Address [address] [place] [address] Care Team Providers Care Death Clearance Coordinator Name Role Phone Hudson Lebron MD Primary Care Provider + [phone] Hudson Lebron MD Unavailable [phone] German Stevens Unavailable Estella Gong DO Unavailable [phone] Maribeth Powers NP Unavailable [phone] Encounter Details Date Type Department Care Team (Late st Contact Info) Description 07/16/2023 Abstract [facility] [address] [place] [address] Estella Gong DO Social History Tobacco Use Types Packs/Day Years [...] often do you attend chur ch or adventist services? More than 4 times per year 12/19/2022 Do you belong to any clubs o r organizations such as judaism groups, unions, fraternal or athletic groups, or school groups? Yes 12/19/2022 How often do you attend meet ings of the clubs or organizations you belong to? More than 4 times per year 12/19/2022 Are you , , di vorced, , never , or living with a partner? 12/19/2022 [facility] Questionnaire Answer Date [...] in a fci (including now)? No 12/19/2022 Education Answer Date [...] [address] [place] [address] José Luis Brennan MD [address] [place] [address] documented as of this encounter Visit Diagnoses Not on filedocumented in this encounter Care Teams Death Clearance Coordinator Relationship Specialty Start Date End Date Hudson Lebron MD [address] [place] [address] PCP - General 12/19/22 Hudson Lebron MD [address] [address] PCP - ACO Reach 09/05/23 Gonsalo Stevens MD [address] [place] [address] Referring Physician Nephrology 11/17/23 Estella Gong DO [address] [place] [address] Referring Physician Neurology 08/11/24 Maribeth Powers NP [address] [place] [address] Nurse Practitioner Neurology 10/21/24 documented as of this encounter
--- OUTSIDE RECORDS SUMMARY | 2025-01-08 19:30 | XMS_ITS | Encounter Summary ---
Author Organization [facility] Address [address] [facility] [place] [address] Care Team Providers Care Seamark Advanced Operator Maintainer Name Role Phone Hudson Lebron MD Unavailable [phone] Hudson Lebron MD Primary Care Provider [phone] Hudson Lebron MD Unavailable [phone] German Stevens Unavailable Estella Gong DO Unavailable [phone] Maribeth Powers NP Unavailable [phone] Encounter Details Date Type Department Care Team (Late st Contact Info) Description 01/08/2023 External Result Encounter [facility] External Department Unsolicited Cameron Flores MD [address] [facility] [address] [place] [address] Social History Tobacco Use Types Packs/Day Years [...] often do you attend chur ch or tenriism services? More than 4 times per year 12/19/2022 Do you belong to any clubs o r organizations such as zoroastrianism groups, unions, fraternal or athletic groups, or school groups? Yes 12/19/2022 How often do you attend meet ings of the clubs or organizations you belong to? More than 4 times per year 12/19/2022 Are you , , di vorced, , never , or living with a partner? 12/19/2022 [facility] - Occupational Stress Questionnaire Answer Date [...] place to sleep or slept in a [place] facility (including now)? No 12/19/2022 Education Answer Date [...] Office Visit [facility] [address] [facility] [address] [place] [address] Cameron Flores MD [address] [facility] [address] [place] [address] documented as of this encounter Procedures Procedure Name Priority Date/Time Associated Diagnosis Comments BI MAMMOGRAM SCREENING BILATERAL 01/08/2023 2:58 PM EDT documented in this encounter Results * Bilateral screening mammogram (01/08/2023 2:58 PM [...] Leidy Dorman M.D.01/08/2023 3:01 PM Dictation Location: [facility] Transcribed By: [facility] 01/08/23 1501 Dictated By: Leidy Dorman MD 01/08/23 1458 Signed By: <Electronically signed by MD Leidy Dorman in OV> 01/08/23 1501 Narrative 01/09/2023 2:25 PM EDT [address] [address] Mammography Report Signed Patient: Zeynep Abbasi MR#: [id number] : 1950 Acct:[id number] Age/Sex: 72 / F ADM Date: 01/08/23 Loc: [place] Room: Type: [facility] Attending Dr: Cameron Flores MD Copies to: [...] w/CAD Procedure Note Radiology, Radiologist, - 01/09/[address] [address] Mammography Report Signed Patient: Zeynep AbbasiMR#: [id number] : 1950Acct:[id number] Age/Sex: 72 / FADM Date: 01/08/23 Loc: [place] Room:Type: [facility] Attending Dr: Cameron Flores MD Copies to: [...] Leidy Dorman M.D.01/08/2023 3:01 PM Dictation Location: [facility] Transcribed By: [facility] 01/08/23 1501 Dictated By: Leidy Dorman MD 01/08/23 1458 Signed By: <Electronically signed by MD Leidy Dorman in OV> 01/08/23 1501 us Cameron Flores MD IMG BI PROCEDURES Final Result documented in this encounter Visit Diagnoses Not on filedocumented in this encounter Care Teams Seamark Advanced Operator Maintainer Relationship Specialty Start Date End Date Hudson Lerbon MD [address] [place] [address] [address] [place] [address] PCP - ACO Reach 11/28/22 07/06/23 Hudson Lebron MD [address] [address] [place] [address] PCP - General 12/19/22 Hudson Lebron MD [address] [place] [address] PCP - ACO Reach 09/05/23 Gonsalo Stevens MD [address] [address] [place] [address] Referring Physician Nephrology 11/17/23 Estella Gong DO [address] [place] [address] Referring Physician Neurology 08/11/24 Maribeth Powers NP [address] [place] [address] Nurse Practitioner Neurology 10/21/24 documented as of this encounter
--- NOTE | 2025-01-08 19:38 | ED.FEVER1 ---
HPI - Fever General Chief Complaint: Fever Stated Complaint: fever Time Seen by Provider: 01/08/25 19:25 History of Present Illness HPI Narrative: presents with acute illness within the past hour . fever and chills. No headache, cough, abdominal pain or urinary symptoms. Temp 103 on arrival swelling of her ankles for the past week which she attributes to the heat and she has been on her feet quite a bit. No dyspnea. she takes amlodipine and also gabapentin for her RA Related Data Home Medications �Medication �Instructions �Recorded �Confirmed amlodipine 5 mg tablet 10 mg PO DAILY 11/29/23 01/08/25 atorvastatin 20 mg tablet 20 mg PO DAILY 11/29/23 01/08/25 colchicine 0.6 mg tablet 0.6 mg PO DAILY PRN gout 11/29/23 01/08/25 cyclobenzaprine 10 mg tablet 10 mg PO DAILY 11/29/23 01/08/25 fluticasone propionate 50 1 spray intranasal DAILY 11/29/23 01/08/25 mcg/actuation nasal spray,suspension gabapentin 100 mg capsule 100 mg PO Q12H 11/29/23 01/08/25 lidocaine 5 % topical patch 1 patch topical Q24H PRN pain 11/29/23 01/08/25 losartan 100 mg tablet 100 mg PO DAILY 11/29/23 01/08/25 zolpidem 10 mg tablet 10 mg PO DAILY 11/29/23 01/08/25 Allergies Allergy/AdvReac Type Severity Reaction Status Date / Time No Known Drug Allergies Allergy Verified 01/08/25 19:31 Review of Systems ROS Status of ROS 10 or more systems reviewed and unremarkable except as noted in history and below PFSH PFSH Social History Little interest or pleasure in doing things: not at all Feeling down, depressed, or hopeless: not at all Exam Constitutional Vital Signs, click to edit/add: Last Vital Signs Temp 98.5 F 01/08/25 22:07 Pulse 87 01/08/25 22:07 Resp 20 01/08/25 22:07 BP 155/89 H 01/08/25 22:07 Pulse Ox 96 01/08/25 22:07 O2 Del Method Room Air 01/08/25 22:07 Common normals: no apparent distress, average body habitus, oriented x3, no limitations, healthy appearing, alert and well nourished [facility] Common normals: normocephalic and head/scalp atraumatic Eye Common normals: EOMs intact bilaterally and conjunctivae normal Respiratory Common normals: normal respiratory effort, no retractions, no use of accessory muscles and clear to auscultation bilaterally Cardio Common normals: S1 normal heart sound and S2 normal heart sound Rate: tachycardic GI Common normals: Normal to inspection, nondistended, normoactive bowel sounds present, soft to palpation and non-tender Extremity Other: trace edema bilat ankles Neuro Common normals: oriented x3, CN's II-XII intact bilaterally, moves all extremities and no focal motor deficits Psych Appearance: grossly normal Course Vital Signs Vital signs: Vital Signs Temperature 103.2 F H 01/08/25 19: Pulse Rate 108 H 01/08/25 19: Respiratory Rate 20 01/08/25 19: Blood Pressure 150/68 H 01/08/25 19: Pulse Oximetry 99 01/08/25 19:25 Oxygen Delivery Method Room Air 01/08/25 19:25 Temperature 98.5 F 01/08/25 22:07 Pulse Rate 87 01/08/25 22:07 Respiratory Rate 20 01/08/25 22:07 Blood Pressure 155/89 H 01/08/25 22:07 Pulse Oximetry 96 01/08/25 22:07 Oxygen Delivery Method Room Air 01/08/25 22:07 MDM - Fever MDM Narrative Medical decision making narrative: patient presents with acute onset of fever and chills today. No cough or dyspnea. No headache or pain or UTI symptoms. Past UTI and she was not aware she was infected. VSS. cxray clear and chest clear. WBC normal. UA positive and COVID 19 positive given dose of rocephin IM. Paxlovid not prescribed as she has no respiratory symptoms and cxray clear. Discharged with a prescription for Bactrim ds and is to follow up with her doctor Lab Data Labs: Lab Results 01/08/25 01/08/25 01/08/25 Range/Units 20:00 20:05 20:28 WBC 4.9 (4.0-11.0) 10^3/uL RBC 3.77 L (4.20-5.40) 10^6/uL Hgb 11.4 L (12.0-16.0) g/dL Hct 33.5 L (36.0-48.0) % MCV 88.9 (81.0-99.0) fL MCH 30.2 (26.7-34.0) pg MCHC 34.0 (29.9-35.2) g/dL RDW 13.1 (11.0-15.0) % Plt Count 205 (150-450) 10^3/uL MPV 11.1 (9.5-13.5) fL Seg Neuts % (Manual) 92.0 H (43.0-75.0) Lymphocytes % (Manual) 6.0 L (20.5-60.0) % Monocytes % (Manual) 1.0 L (1.7-12.0) % Eosinophils % (Manual) 1.0 (0.9-7.0) % Basophils % (Manual) 0.0 L (0.2-2.0) % Neutrophils # (Manual) 4.50 (1.4-6.5) 10^3/uL Lymphocytes # (Manual) 0.29 L (1.20-3.80) 10^3/uL Monocytes # (Manual) 0.04 L (0.30-0.80) 10^3/uL Eosinophils # (Manual) 0.04 (0.00-0.70) 10^3/uL Basophils # (Manual) 0.00 (0.00-0.10) 10^3/uL Sodium 135 L (136-145) mmol/L Potassium 3.8 (3.5-5.1) mmol/L Chloride 97 L (98-107) mmol/L Carbon Dioxide 23.9 (21.0-32.0) mmol/L Anion Gap 17.9 BUN 18.0 (7.0-18.0) mg/dL Creatinine 0.70 (0.55-1.02) mg/dL Est GFR ( Amer) >60 (>=60 mL/min/1.73m^2) Est GFR (Non-Af Amer) >60 (>=60 mL/min/1.73m^2) BUN/Creatinine Ratio 25.7 Glucose 103 (74-106) mg/dL Lactate 1.2 (0.4-2.0) mmol/L Calcium 9.3 (8.5-10.1) mg/dL Total Bilirubin 0.7 (0.2-1.0) mg/dL AST 30 (15-37) U/L ALT 37 (14-59) U/L Alkaline Phosphatase 110 (46-116) U/L Troponin I High Sens 4.7 (4.0-51.3) pg/mL Total Protein 7.5 (6.4-8.2) g/dL Albumin 4.1 (3.4-5.0) g/dL Globulin 3.4 g/dL Albumin/Globulin Ratio 1.2 Urine Color (YELLOW) Urine Clarity (CLEAR) Urine pH (5.0-9.0) Ur Specific Kathleen (1.005-1.025) Urine Protein (NEG/TRACE) mg/dL Urine Glucose (UA) (NEGATIVE) mg/dL Urine Ketones (NEGATIVE) mg/dL Urine Occult Blood (NEGATIVE) Urine Nitrite (NEGATIVE) Urine Bilirubin (NEGATIVE) Urine Urobilinogen (0.2-1.0) EU/dL Ur Leukocyte Esterase (NEGATIVE) Urine RBC (0-2) #/HPF Urine WBC (NONE SEEN) #/HPF Ur Squamous Epith Cells (NONE/RARE) #/LPF Urine Crystals (None Seen) #/HPF Urine Bacteria (NONE SEEN) #/HPF Urine Casts (NONE SEEN) #/LPF Urine Mucus (NONE SEEN) Ur Culture Indicated? SARS-CoV-2 Ag (CV2AG) Positive A (NEGATIVE) 01/08/25 Range/Units 20:57 WBC (4.0-11.0) 10^3/uL RBC (4.20-5.40) 10^6/uL Hgb (12.0-16.0) g/dL Hct (36.0-48.0) % MCV (81.0-99.0) fL MCH (26.7-34.0) pg MCHC (29.9-35.2) g/dL RDW (11.0-15.0) % Plt Count (150-450) 10^3/uL MPV (9.5-13.5) fL Seg Neuts % (Manual) (43.0-75.0) Lymphocytes % (Manual) (20.5-60.0) % Monocytes % (Manual) (1.7-12.0) % Eosinophils % (Manual) (0.9-7.0) % Basophils % (Manual) (0.2-2.0) % Neutrophils # (Manual) (1.4-6.5) 10^3/uL Lymphocytes # (Manual) (1.20-3.80) 10^3/uL Monocytes # (Manual) (0.30-0.80) 10^3/uL Eosinophils # (Manual) (0.00-0.70) 10^3/uL Basophils # (Manual) (0.00-0.10) 10^3/uL Sodium (136-145) mmol/L Potassium (3.5-5.1) mmol/L Chloride (98-107) mmol/L Carbon Dioxide (21.0-32.0) mmol/L Anion Gap BUN (7.0-18.0) mg/dL Creatinine (0.55-1.02) mg/dL Est GFR ( Amer) (>=60 mL/min/1.73m^2) Est GFR (Non-Af Amer) (>=60 mL/min/1.73m^2) BUN/Creatinine Ratio Glucose (74-106) mg/dL Lactate (0.4-2.0) mmol/L Calcium (8.5-10.1) mg/dL Total Bilirubin (0.2-1.0) mg/dL AST (15-37) U/L ALT (14-59) U/L Alkaline Phosphatase (46-116) U/L Troponin I High Sens (4.0-51.3) pg/mL Total Protein (6.4-8.2) g/dL Albumin (3.4-5.0) g/dL Globulin g/dL Albumin/Globulin Ratio Urine Color Lt. yellow (YELLOW) Urine Clarity Clear (CLEAR) Urine pH 7.0 (5.0-9.0) Ur Specific Kathleen 1.010 (1.005-1.025) Urine Protein Negative (NEG/TRACE) mg/dL Urine Glucose (UA) Negative (NEGATIVE) mg/dL Urine Ketones Negative (NEGATIVE) mg/dL Urine Occult Blood Small A (NEGATIVE) Urine Nitrite Negative (NEGATIVE) Urine Bilirubin Negative (NEGATIVE) Urine Urobilinogen 0.2 (0.2-1.0) EU/dL Ur Leukocyte Esterase Moderate A (NEGATIVE) Urine RBC 0-2 (0-2) #/HPF Urine WBC >100 A (NONE SEEN) #/HPF Ur Squamous Epith Cells None seen (NONE/RARE) #/LPF Urine Crystals None seen (None Seen) #/HPF Urine Bacteria Large A (NONE SEEN) #/HPF Urine Casts None seen (NONE SEEN) #/LPF Urine Mucus None seen (NONE SEEN) Ur Culture Indicated? Yes-[facility] SARS-CoV-2 Ag (CV2AG) (NEGATIVE) Discharge Plan Discharge Chief Complaint: Fever Clinical Impression: Acute UTI (urinary tract infection), COVID-19 Patient Disposition: Home, Self-Care Prescriptions / Home Meds: No Action amlodipine 5 mg tablet 10 mg PO DAILY atorvastatin 20 mg tablet 20 mg PO DAILY colchicine 0.6 mg tablet 0.6 mg PO DAILY PRN (Reason: gout) cyclobenzaprine 10 mg tablet 10 mg PO DAILY Rx Instructions: at HS fluticasone propionate 50 mcg/actuation spray,suspension 1 spray INTRANASAL DAILY gabapentin 100 mg capsule 100 mg PO Q12H lidocaine 5 % adhesive patch,medicated 1 patch topical Q24H PRN (Reason: pain) losartan 100 mg tablet 100 mg PO DAILY zolpidem 10 mg tablet 10 mg PO DAILY Print Language: Djiboutian Instructions: Urinary Tract Infection in Women (ED), COVID-19 (Coronavirus Disease 2019) (ED) Additional Instructions: drink plenty of fluids. Use tylenol or ibuprofen for fever. Follow up with your doctor this upcoming week for recheck Referrals: SHAINA CASTAÑEDA [Primary Care Provider, Family Practice] - 1 week
[2025-01-08 20:20] VITALS: TEMP 38.3
[2025-01-08] MEDS: 0.9 % SODIUM CHLORIDE 1,000 ML 999 ML IV (20:20)
[2025-01-08] MEDS: ACETAMINOPHEN 500 MG TABLET 1000 MG PO (20:20)
[2025-01-08 20:24] LABS: Hematocrit 33.5 % (36.0-48.0); Hemoglobin 11.4 g/dL (12.0-16.0); Mean Corpuscular HGB Conc 34.0 g/dL (29.9-35.2); Mean Corpuscular Hemoglobin 30.2 pg (26.7-34.0); Mean Corpuscular Volume 88.9 fL (81.0-99.0); Platelet Count 205 10^3/uL (150-450); Red Blood Count 3.77 10^6/uL (4.20-5.40); White Blood Count 4.9 10^3/uL (4.0-11.0)
[2025-01-08 20:35] LABS: Eosinophils Absolute Manual 0.04 10^3/uL (0.00-0.70); Eosinophils Percent Manual 1.0 % (0.9-7.0); Lymphocytes Absolute Manual 0.29 10^3/uL (1.20-3.80); Lymphocytes Percent Manual 6.0 % (20.5-60.0); Segmented Neut Absolute Manual 4.50 10^3/uL (1.4-6.5); Segmented Neutrophils % Manual 92.0 (43.0-75.0)
[2025-01-08 20:36] LABS: Basophils Abs Manual 0.00 10^3/uL (0.00-0.10); Basophils Percent Manual 0.0 % (0.2-2.0); Monocytes Absolute Manual 0.04 10^3/uL (0.30-0.80); Monocytes Percent Manual 1.0 % (1.7-12.0)
[2025-01-08 20:42] LABS: Lactate/Lactic Acid 1.2 mmol/L (0.4-2.0)
[2025-01-08 20:42] LABS: Alanine Aminotransferase 37 U/L (14-59); Albumin Globulin Ratio 1.2; Albumin Level 4.1 g/dL (3.4-5.0); Alkaline Phosphatase 110 U/L (46-116); Anion Gap 17.9; Aspartate Amino Transferase 30 U/L (15-37); Blood Urea Nitrogen 18.0 mg/dL (7.0-18.0); Calcium 9.3 mg/dL (8.5-10.1); Carbon Dioxide 23.9 mmol/L (21.0-32.0); Chloride 97 mmol/L (98-107); Estimated GFR (African America >60 (>=60 mL/min/1.73m^2); Estimated GFR (Non-African Ame >60 (>=60 mL/min/1.73m^2); Globulin 3.4 g/dL; Glucose 103 mg/dL (74-106); Potassium 3.8 mmol/L (3.5-5.1); Sodium 135 mmol/L (136-145); Total Protein 7.5 g/dL (6.4-8.2)
[2025-01-08 21:03] LABS: Glucose Urine UA NEGATIVE (NEGATIVE)
[2025-01-08 21:06] LABS: Urine Culture Indicated YES-FRMC
[2025-01-08 21:10] VITALS: TEMP 37.8
[2025-01-08 21:11] LABS: Cast Seen? NONE SEEN #/LPF (NONE SEEN); Crystals Seen? None Seen #/HPF (None Seen)
[2025-01-08 22:01] LABS: SARS-CoV-2 Ag POSITIVE (NEGATIVE)
[2025-01-08 22:07] VITALS: BP 155/89; PULSE 87; TEMP 36.9; O2SAT 96
[2025-01-08] MEDS: CEFTRIAXONE 1,000 MG, LIDOCAINE HCL/PF 2.1 ML IM (22:30)
[2025-01-09 09:01] LABS: A. calcoaceticus-baumannii Cpx NOT DETECTED (NOT DETECTE); Bacteroides fragilis NOT DETECTED (NOT DETECTE); Candida auris NOT DETECTED (NOT DETECTE); Candida glabrata NOT DETECTED (NOT DETECTE); Enterococcus faecalis NOT DETECTED (NOT DETECTE); Enterococcus faecium NOT DETECTED (NOT DETECTE); Klebsiella aerogenes NOT DETECTED (NOT DETECTE); Klebsiella pneumoniae group NOT DETECTED (NOT DETECTE); Proteus spp. NOT DETECTED (NOT DETECTE); Salmonella spp. NOT DETECTED (NOT DETECTE); Serratia marcescens NOT DETECTED (NOT DETECTE); Staphylococcus epidermidis NOT DETECTED (NOT DETECTE); Staphylococcus lugdunensis NOT DETECTED (NOT DETECTE); Staphylococcus spp. NOT DETECTED (NOT DETECTE); Stenotrophomonas maltophilia NOT DETECTED (NOT DETECTE); Streptococcus pyogenes NOT DETECTED (NOT DETECTE); Streptococcus spp. NOT DETECTED (NOT DETECTE)
[2025-01-09 10:24] LABS: CTX-M NOT DETECTED (NOT DETECTE); IMP NOT DETECTED (NOT DETECTE); KPC NOT DETECTED (NOT DETECTE); mcr-1 NOT DETECTED (NOT DETECTE)
[2025-01-09 10:25] LABS: NDM NOT DETECTED (NOT DETECTE); OXA-48-like NOT DETECTED (NOT DETECTE); Source BLOOD; VIM NOT DETECTED (NOT DETECTE)
[2025-01-09 10:28] LABS: Enterobacterales DETECTED (NOT DETECTE)
== END 2025-01-08 22:55 | disposition home or self-care (01) ==
PROVIDERS: Emergency Provider Internal Medicine; PCP Family Medicine
DX: U07.1 COVID-19 (principal); N39.0 Urinary tract infection, site not specified; R50.9 Fever, unspecified
CPT/HCPCS: 36415; 71045; 80053; 81001; 83605; 84484; 85007; 85027; 87040; 87077; 87086; 87088; 87150; 87186; 87811; 96372; 99285; J0696

== ENCOUNTER 2025-03-14 21:15 | Emergency (ER) | payer MEDICARE, SELFPAY ==
--- OUTSIDE RECORDS SUMMARY | 2017-05-15 10:00 | XMS_ITS | Continuity of Care Document ---
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 Phone Susan DOMÍNGUEZ, Reginaldo Unavailable Unavailable Allergies, Adverse Reactions, Alerts Substance Reaction Status Criticality No Known Allergies Active No Inform ation Medications Medication Instructions Dosage Effective Dates (start - stop) Status Comments lisinopril 40 mg tablet take 1 tablet by oral route every day 40 MG - Active atorvastatin 20 mg tablet take 1 tablet by oral route every day 20 MG - Active omeprazole 20 mg capsule,delayed release take 1 capsule by oral route every day before a meal 20 MG - Active meloxicam 15 mg tablet take 1 tablet by oral route every day 15 MG - Active carvedilol 12.5 mg tablet take 1 tablet by oral route 2 times every day with food 12.5 MG - Active [place] 3 Fish Oil 684 mg-1,200 mg capsule,delayed release - Active Procedures Procedure Date Ophth Serv: Med Exam; Interm E 17 Offic/outpt E&m [facility] 45 7 Advance Directives Directive Yes / No Effective Date File Name No Information Encounters Encounter Description Practice Location Reason(s) For Visit Diagnoses Date Provider Providers Copied on Encounter [facility], [address] [facility], [place], [place], [id number] , [place] [phone] [facility] [place] floaters (chief complaint) Vitreous degeneration, bilateralUnspecified subjective visual disturbancesOther vitreous opacities, right eyeAge-related nuclear cataract, bilateral 7 Susan Hair. [address] [facility], [place], [address], [place]. [phone] Referring Provider: Yuniel Gramajo MD, [address], [place], [address] . tel:[phone] Offic/outpt E&m [facility] 45 [facility], [address] [facility], [place], [place], [id number] , [place] tel:[phone] [facility] [place] floaters and flashes (chief complaint) Vitreous degeneration, bilateralUnspecified subjective visual disturbancesOther vitreous opacities, right eyeAge-related nuclear cataract, bilateral Oct-0 5-201 7 Klisovic Reginaldo. [address], [place], [address], [place]. [phone] Referring Provider: Yuniel Gramajo MD, [address], [place], [address] . tel:[phone] Family History Family Member Type Diagnosis Age At Onset Father Problem (finding) Heart disease Mother Problem (finding) stroke Mother Problem (finding) Cancer, unknown Mother Problem (finding) Non-Hodgkin's lymphoma Maternal grandfather Problem (finding) Leukemia Father Problem (finding) hypertension Payers Payer name Insurance type Covered constitution party ID Authoriza tion(s) Medicare Cigna [id number] [facility] [id number] Social History Type Description Quantity Date Captured Comments Alcohol Use Details 6-pack of beer yearly Caffeine Use Details 2 cups per day Tobacco Use Status No Information Smoking Status Former smoker Sex Female Chief Complaint And Reason For Visit From encounter dated '05/15/2017 14:00'. floaters (chief complaint). Description: Pt states flashes have subsided but floaters are still present. Pt states the number and freqeuncy has decreased but they are still there.The 66 years old female presents for 4-wk retinal evaluation. Pt complains of floaters in the right eye. PVD acute onset. It affects both near and far vision. The symptom is frequent. It occurs with no pattern. The condition is significant. The condition is described as visually disruptive. In addition, the condition is associated with blurred distance vision. The patient denies eye pain. Reason For Referral Reason For Referral No Information History Of Present Illness Encounter Date Complaint History Of Prese nt Illness floaters Pt states flashe s have subsided but floaters are still present. Pt states the number and freqeuncy has decreased but they are still there.The 66 years old female presents for 4-wk retinal evaluation. Pt complains of floaters in the right eye. PVD acute onset. It affects both near and far vision. The symptom is frequent. It occurs with no pattern. The condition is significant. The condition is described as visually disruptive. In addition, the condition is associated with blurred distance vision. The patient denies eye pain. floaters and flashes Pt presents with floaters and strobe light flashes of light OD. She states that this started yesterday. The floaters come and go and so do the flashes of light. There is no pattern noted to the lights. This started yesterday and no changes in acuity has been noted. She was seen today and referred here for retinal tuft OD. Pt has no other ocular complaints at this time. .The 66 years old female presents for evaluation of floaters and flashes in the right eye. It started about 1 day(s) ago. The onset was acute onset. It affects OD. The symptom is intermittent. It occurs with no pattern. The condition is mild. Functional Status Date Functional Assessmen t No Information Instructions Date Instruction Additional Infor ara - PRNFollow-up with retinal specialist in [place] in 4 months, sooner with changes. Related to Vitreous degeneration of both eyesSubjective visual disturbance of right eyeVitreous opacities of right eyeNuclear senile cataract of both eyes - Discussed the savita ent is doing well on exam OU today. Discussed there are no retinal breaks OU at this time. Discussed the PVD has not completed yet and she may have persisting floaters and intermittent flashes of light. Discussed if these symtpoms worsen, call immediately. The patient is living in [place] now. She understands to follow-up with a retinal specialist in 4 months. Call if VA worsens. Discussed diagnosis in detail with patient. Discussed treatment options with patient. Related to Vitreous degeneration of both eyesSubjective visual disturbance of right eyeVitreous opacities of right eyeNuclear senile cataract of both eyes - 3-4 weeks with [facility] for follow- up Related to Vitreous degeneration of both eyesSubjective visual disturbance of right eyeVitreous opacities of right eyeNuclear senile cataract of both eyes - Discussed diagnosi s of acute PVD in the right eye. Discussed this is the cause of her recent flashes of light and floaters. Discussed there is also an asymptomatic PVD in the left eye but there are no retinal breaks OU today. She understands this is a normal aging process and no retinal treatment is required at this time. Discussed the separation has not completed in either eye so her symptoms will likely persist until this process is complete. Also discussed she remains at higher risk for retinal breaks until the separation has completed. Emphasized the importance of calling immediately with worsening symptoms and/or other concerns. Will monitor her closely to ensure no breaks are occuring. Discussed signs and symptoms of PVD/floaters. Discussed signs and symptoms of retinal detachment. Call if VA worsens. Discussed diagnosis in detail with patient. Discussed treatment options with patient. Related to Vitreous degeneration of both eyesSubjective visual disturbance of right eyeVitreous opacities of right eyeNuclear senile cataract of both eyes Assessments Type Assessment Date assessment Vitreous degeneration of both ey es assessment Subjective visual disturbance of right eye assessment Vitreous opacities of right eye assessment Nuclear senile cataract of both eyes Patient Care Teams Name Effective Dates (start - stop) Status Members No Information
[2025-03-14] VITALS (8 sets, daily range): BP systolic 148–179; BP diastolic 77–82; PULSE 77; TEMP 36.6; O2SAT 97–99; BMI 25.1
--- OUTSIDE RECORDS SUMMARY | 2025-03-14 21:28 | XMS_ITS | Encounter Summary ---
Author Organization [facility] Address [address] [facility] [place] [address] Care Team Providers Care Quality Assurance Supervisor Final Name Role Phone Hudson Lebron MD Primary Care Provider [phone] Hudson Lebron MD Unavailable [phone] German Stevens Unavailable Estella Gnog DO Unavailable [phone] Maribeth Powers NP Unavailable [phone] Cassi Wright RN Unavailable [phone] Reason for Visit * Reason Onset Date Comments Med Refill 07/29/2024 Encounter Details Date Type Department Care Team (Late st Contact Info) Description 07/29/2024 Refill [facility] Family Medicine [address] [facility] 100 [place] [address] Hudson Lebron MD [address] [facility] 100 [place] [address] Non-seasonal allergic rhinitis due to pollen Social [...] attend [facility] or rastafarian services? More than 4 times per year 12/30/2023 Do you belong to any clubs o r organizations such as presybeterian groups, unions, fraternal or athletic groups, or [...] Recorded Patient Health Questionnaire-2 Score 0 03/28/2024 [facility] Occup[facility] ional Health - Occupational Stress [...] health care facility (including now)? No 12/19/2022 Housing Stability Vital Sign Answer Giancarlo e Recorded In the last 12 months, was t here a time when you were not able to pay the mortgage or rent on time? No 12/30/2023 In the past 12 months, how m any times have you moved where you were living? 0 12/30/2023 At any time in the past 12 m [facility], were you homeless or living in a [place] facility (including now)? No 12/30/2023 Education Answer Date [...] Care Team (Late st Contact Info) Description 04/06/2025 11:00 AM EDT Office Visit [facility] Family Medicine [address] [facility] [address] [place] [address] Hudson Lebron MD [address] [place] [address] (Fax) 07/10/2026 11:30 AM EST Office Visit [facility] [address] [place] [address] José Luis Brennan MD [address] [place] [address] documented as of this encounter Visit Diagnoses Diagnosis Non-seasonal allergic rhinitis due to pollen documented in this encounter Care Teams Quality Assurance Supervisor Final Relationship Specialty Start Date End Date Hudson Lebron MD [address] [place] [address] (Fax) PCP - General 12/19/22 Hudson Lebron MD [address] [place] [address] (Fax) PCP - ACO Reach 09/05/23 Gonsalo Stevens MD [address] [place] [address] Referring Physician Nephrology 11/17/23 Estella Gong DO [address] [place] [address] Referring Physician Neurology 08/11/24 Maribeth Powers NP [address] [place] [address] Nurse Practitioner Neurology 10/21/24 Cassi Wright, RN [address] [facility] [address] [place] [address] Registered Nurse Family Medicine 01/11/25 documented as of this encounter
--- OUTSIDE RECORDS SUMMARY | 2025-03-14 21:28 | XMS_ITS | Encounter Summary ---
Author Organization [facility] Address [address] [facility] [place] [address] Care Team Providers Care Nutritional Health Coach Name Role Phone Hudson Lebron MD Primary Care Provider [phone] Hudson Lebron MD Unavailable [phone] German Stevens Unavailable Estella Gong DO Unavailable [phone] Maribeth Powers NP Unavailable [phone] Cassi Wright RN Unavailable [phone] Encounter Details Date Type Department Care Team (Late st Contact Info) Description 06/08/2024 Orders Only [facility] [place] [facility] [address] [place] [address] Hudson Lebron MD [address] [facility] [address] [place] [address] Social History Tobacco Use Types Packs/Day Years [...] How often do you attend chur or yazidism services? More than 4 times per year 12/30/2023 Do you belong to any clubs o r organizations such as pentecostal groups, unions, fraternal or athletic groups, or [...] Recorded Patient Health Questionnaire-2 Score 0 03/28/2024 [facility] - Occupational Stress Questionnaire [...] place to sleep or slept in a fdc (including now)? No 12/19/2022 Housing Stability Vital Sign Answer Giancarlo e Recorded In the last 12 months, was t here a time when you were not able to pay the mortgage or rent on time? No 12/30/2023 In the past 12 months, how m any times have you moved where you were living? 0 12/30/2023 At any time in the past 12 m [facility], were you homeless or living in a fdc (including now)? No 12/30/2023 Education Answer Date [...] Description 04/06/2025 11:00 AM EDT Office Visit [facility] [place] [address] [place] [address] Hudson Lebron MD [address] [place] [address] (Fax) 07/10/2026 11:30 AM EST Office Visit [facility] [address] [place] [id number] José Luis Brennan MD [address] [place] [address] documented as of this encounter Visit Diagnoses Not on filedocumented in this encounter Care Teams Nutritional Health Coach Relationship Specialty Start Date End Date Hudson Lebron MD [address] [place] [address] (Fax) PCP - General 12/19/22 Hudson Lebron MD [address] [place] [address] (Fax) PCP - ACO Reach 09/05/23 Gonsalo Stevens MD [address] [place] [address] Referring Physician Nephrology 11/17/23 Estella Gong DO [address] [place] [address] Referring Physician Neurology 08/11/24 Maribeth Powers NP [address] [place] [address] Nurse Practitioner Neurology 10/21/24 Cassi Wright, ISRA [address] [place] [address] Registered Nurse Family Medicine 01/11/25 documented as of this encounter
--- OUTSIDE RECORDS SUMMARY | 2025-03-14 21:28 | XMS_ITS | Encounter Summary ---
Author Organization [facility] Address [address] [facility] [place] [address] Care Team Providers Care Employee Communications Coordinator Name Role Phone Hudson Lebron MD Primary Care Provider + [phone] Hudson Lebron MD Unavailable [phone] German Stevens Unavailable Estella Gong DO Unavailable [phone] Maribeth Powers NP Unavailable [phone] Cassi Wright RN Unavailable [phone] Reason for Visit * Reason Onset Date Comments Med Refill 08/09/2024 Encounter Details Date Type Department Care Team (Late st Contact Info) Description 08/09/2024 Refill [facility] [place] [address] [facility] [address] [place] [address] Hudson Lebron MD [address] [facility] 100 [place] [address] Non-seasonal allergic rhinitis due to pollen Social [...] How often do you attend [facility] or yarsani services? More than 4 times per year 12/30/2023 Do you belong to any clubs o r organizations such as jew groups, unions, fraternal or athletic groups, or [...] Recorded Patient Health Questionnaire-2 Score 0 03/28/2024 [facility] ional Health - Occupational Stress [...] place to sleep or slept in a detention (including now)? No 12/19/2022 Housing Stability Vital Sign Answer Giancarlo e Recorded In the last 12 months, was t here a time when you were not able to pay the mortgage or rent on time? No 12/30/2023 In the past 12 months, how m any times have you moved where you were living? 0 12/30/2023 At any time in the past 12 m [facility], were you homeless or living in a detention (including now)? No 12/30/2023 Education Answer Date [...] Visit [facility] [address] [facility] [address] [place] [address] Hudson Lebron MD [address] [facility] [place] [address] (Fax) 07/10/2026 11:30 AM EST Office Visit [facility] [address] [place] [address] José Luis Brennan MD [address] [place] [address] documented as of this encounter Visit Diagnoses Diagnosis Non-seasonal allergic rhinitis due to pollen documented in this encounter Care Teams Employee Communications Coordinator Relationship Specialty Start Date End Date Hudson Lebron MD [address] [facility] [place] [address] (Fax) PCP - General 12/19/22 Hudson Lebron MD [address] [facility] [place] [address] (Fax) PCP - ACO Reach 09/05/23 Gonsalo Stevens MD [address] [facility] [place] [address] Referring Physician Nephrology 11/17/23 Estella Gong DO [address] [place] [address] Referring Physician Neurology 08/11/24 Maribeth Powers NP [address] [place] [address] Nurse Practitioner Neurology 10/21/24 Cassi Wright, RN [address] [facility] [address] [place] [address] Registered Nurse Family Medicine 01/11/25 documented as of this encounter
--- OUTSIDE RECORDS SUMMARY | 2025-03-14 21:28 | XMS_ITS | Clinical Summary ---
Author Organization [facility] Address [address] [place] [address] Care Team Providers Care Assembler Watch Train Name Role Phone Hudson Lebron MD Primary Care Provider [phone] Hudson Lebron MD Unavailable [phone] German Stevens Unavailable Estella Gong DO Unavailable [phone] Maribeth Powers NP Unavailable [phone] Cassi Wright RN Unavailable Allergies Active Allergy Reactions Criticality Noted Date [...] Take 10 mg by mouth Daily Active esomeprazole (NexIUM) [address] capsule Take 20 mg by mouth in the morning. Take before meals. Active aspirin 81 MG EC tablet Take 81 mg by mouth every 7 (seven) days Active Cetirizine HCl (ZYRTEC ALLERGY PO) 3 Active cholecalcifero l (Vitamin D-3) 100 MCG (4000 UT) capsule Take by mouth in the morning. Active Black Pepper-Turmeri c (Turmeric Curcumin) 5-1000 MG capsule 3 Active colchicine 0.6 MG tablet Take 0.6 mg by mouth Daily 3 Active L-lysine 1000 MG tablet Take by mouth in the morning. Active magnesium oxide 500 MG tablet Take 1 tablet by mouth at bedtime Active Probiotic Product (CULTURELLE PROBIOTICS PO) 3 Active sennosides (Senokot) 8.6 MG tablet Take 1 tablet by mouth Daily Active naproxen (Naprosyn) 250 MG tablet Take 250 mg by mouth Daily as needed for mild pain Active gabapentin (Neurontin) 100 MG capsuleIndicat ions:Neck pain 1 po daily -bid 180 capsule 1 4 Active zolpidem (Ambien) 10 MG tabletIndicati ons:Primary insomnia Take 1 tablet (10 mg) by mouth as needed at bedtime for sleep 30 tablet 2 5 Active cyclobenzaprin e (Flexeril) 10 MG tabletIndicati ons:Low back pain at multiple sites TAKE 1/2 TO 1 TABLET BY MOUTH EVERYDAY AT BEDTIME 90 tablet 1 5 Active psyllium (Metamucil) 48.57 % powder Take 3 g of fiber by mouth Daily as needed (constipation) Active Potassium 99 MG tablet Take 1 tablet by mouth at bedtime Active fluticasone (Flonase) 50 MCG/ACT nasal sprayIndicatio ns:Non-seasona l allergic rhinitis due to pollen Administer 1 spray into each nostril Daily as needed for rhinitis 48 g 5 07/10/19 26 Active estradiol (Estrace) 0.1 MG/GM vaginal creamIndicatio ns:Atrophic vaginitis Apply to vagina nightly for 1 week then every Friday/d /Friday. 42.5 g 5 5 01/19/20 26 Active cefuroxime (Ceftin) 250 MG tabletIndicati ons:Other fatigue,UTI symptoms Take 1 tablet (250 mg) by mouth in the morning and 1 tablet (250 mg) before bedtime. Do all this for 5 days. 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 [address] Cassi Wright RN 02/21/2025 Telephone [facility] [address] [address] [place] [address] Hudson Lebron MD Care Coordination 02/21/2025 Orders Only [facility] [address] [place] [address] Sana Garcia MA Recurrent UTI; Urge incontinence of urine 02/16/2025 Telephone [facility] [address] [place] [address] Cassi Wright RN 02/16/2025 Patient Outreach [facility] [address] [place] [address] Cassi Wright RN 02/07/2025 External Result Encounter [facility] External Department Unsolicited Provider, Generic External Data 01/31/2025 Patient Outreach [facility] [address] [place] [address] Cassi Wright RN 01/18/2025 3:00 PM EDT Office Visit [facility] [address] [place] [address] Hudson Lebron MD COVID-19 (Primary Dx); Acute UTI (urinary tract infection); Encounter for examination following treatment at hospital; Polypharmacy; Overweight (BMI 25.0-29.9); Atrophic vaginitis 01/18/2025 Bamboo flowsheet [facility] [address] [address] [place] [address] Hudson Lebron MD 01/18/2025 Travel 01/17/2025 Travel 01/11/2025 Telephone [facility] [address] [place] [address] Cassi Wright, ISRA 01/11/2025 Patient Outreach [facility] [address] [place] [address] Cassi Wrgiht RN 01/11/2025 [facility] [address] [place] [address] Cassi Wright RN 01/08/2025 Clinisync Result Encounter [facility] External Department Unsolicited Provider, Generic External Data 01/05/2025 9:30 AM EDT Office Visit [address] [address] [place] [address] Hudson Lebron MD Skin tear of forearm without complication, initial encounter 01/05/2025 Travel from Last 3 Months Immunizations Immunization Administration [...] material from your doctor or pharmacy? Never 01/17/2025 Humiliation, Afraid, Rape, and Kick questionnair e Answer Date Recorded Within the last year, have y ou been afraid of your partner or ex-partner? No 01/17/2025 Within the last year, have y ou been humiliated or emotionally abused in other ways by your partner or ex-partner? No Within the last year, have y ou been kicked, hit, slapped, or otherwise physically hurt by your partner or ex-partner? No 01/17/2025 Within the last year, have y ou been raped or forced to have any kind of sexual activity by your partner or ex-partner? No 01/17/2025 Social Connection and Isolat ion Panel [NHANES] Answer Date Recorded In a typical week, how many times do you talk on the phone with family, friends, or neighbors? More than three times a week 01/17/2025 How often do you get togethe r with friends or relatives? More than three times a week 01/17/2025 How often do you attend chur ch or congregational services? More than 4 times per year 01/17/2025 Do you belong to any clubs o r organizations such as amish groups, unions, fraternal or athletic groups, or school groups? Yes 01/17/2025 How often do you attend meet ings of the clubs or organizations you belong to? More than 4 times per year 01/17/2025 Are you , , di vorced, , never , or living with a partner? 01/17/2025 AUDIT-C Answer Date Recorded Q1: How often do you have a drink containing alcohol? Monthly or less 01/17/2025 Q2: How many drinks containi ng alcohol do you have on a typical day when you are drinking? Patient does not drink Q3: How often do you have si x or more drinks on one occasion? Never 01/17/2025 Overall Financial Resource Strain (CARDIA) Answe r Date Recorded How hard is it for you to pa y for the very basics like food, housing, medical care, and heating? Not hard at all 01/17/2025 PHQ-2 Answer Date Recorded Patient Health Questionnaire-2 Score 0 01/18/2025 [facility] - Occupational Stress Questionnaire Answer Date Recorded Do you feel stress - tense, restless, nervous, or anxious, or unable to sleep at night because your mind is troubled all the time - these days? Not at all 01/17/2025 Exercise Vital Sign Answer Date Recorde d On average, how many days pe r week do you engage in moderate to strenuous exercise (like a brisk walk)? 4 days 01/17/2025 On average, how many minutes do you engage in exercise at this level? 30 min 01/17/2025 Hunger Vital Sign Answer Date Recorded Within the past 12 months, y ou worried that your food would run out before you got the money to buy more. Never true 01/18/20 25 Within the past 12 months, t he food you bought just didn't last and you didn't have money to get more. Never true 01/17/2025 PRAPARE - Transportation Answer Date Re corded In the past 12 months, has l ack of transportation kept you from medical appointments or from getting medications? No 01/04 In the past 12 months, has l ack of transportation kept you from meetings, work, or from getting things needed for daily living? No 01/17/2025 Housing Stability Vital Sign Answer Giancarlo e [...] in a custodial (including now)? No 12/19/2022 Housing Stability Vital Sign Answer Giancarlo e Recorded In the last 12 months, was t here a time when you were not able to pay the mortgage or rent on time? No 01/17/2025 In the past 12 months, how m any times have you moved where you were living? 0 01/17/2025 At any time in the past 12 m [facility], were you homeless or living in a custodial (including now)? No 01/17/2025 Education Answer Date Recorded What is the [...] Visit [facility] Family Medicine 112 [facility] 100 [place] [address] Hudson Lebron MD 112 [facility] 100 [place] [address] 07/10/2026 11:30 AM EST Office Visit [facility] [address] [place] [id number] José Luis Brennan MD [address] [place] [address] Health Maintenance Due Date Last Done Comments CT Colonography 1950 FIT-DNA 1950 FIT 1950 FOBT 1950 Sigmoidoscopy 1950 Influenza Vaccine (#1) 2025 , 04/21/2023, 04/26/2022, Additional history exists Medicare Annual Wellness (AWV) 03/29/2025 0 03/29/2024, 07/02/2022, 04/18/2022 Mammogram 02/07/2026 02/07/2025, 07/0 11/2022, 12/10/2021, Additional history exists Colonoscopy 02/01/2032 01/31/2022, 01/31/2022 Colorectal Cancer Screening 02/01/2032 Pneumococcal Vaccine: 65+ Years Completed 07/07/2019, 07/09/2018, 04/06/2018, Additional history exists Procedures Procedure Name Priority Date/Time Associated Diagnosis Comments BI MAMMOGRAM SCREENING TOMOSYNTHESIS BILATERAL 02/07/2025 1:38 PM EDT [facility]INE CULT[facility] - [facility] Routine 01/08/2025 8:57 PM EDT ANAEROBE IDENTIFICATION ONLY Routine 01/08/2025 8:05 PM EDT AEROBE ID + SUSCEPT Routine 01/08/2025 8 :05 PM EDT AEROBE ID + SUSCEPT Routine 01/08/2025 8 :00 PM EDT COLONOSCOPY Routine 01/31/2022 12:00 PM EDT from Last 3 Months or Most Recently Relevant to Health Maintenance Results * Bilateral screening mammogram with tomosynthesis (02/07/2025 1:38 PM EDT) Anatomical Region Laterality Modality Breast Bilateral Mammography 02/07/2025 1:38 PM EDT Impressions 02/07/2025 1:41 PM EDT NO MAMMOGRAPHIC EVIDENCE OF MALIGNANCY. ROUTINE FOLLOW-UP IS RECOMMENDED IN ONE YEAR. RESULT CODE: 1 Negative DENSITY CODE: 2 (approximately 25-50% glandular) There are scattered areas of fibroglandular density. FOLLOW UP: 1YR The false-negative rate of mammography is approximately 10-percent. Management of a palpable abnormality must be based on clinical grounds. Patient was entered into a reminder system with a target due date for the next mammogram. Impression dictated by: Michael Cole Jr., D.ODanni 02/07/2025 1:39 PM Dictation Location: [facility] Dictated By: Michael Cole Jr, DO 02/07/25 1338 Signed By: <Electronically signed by Michael Cole Jr, DO in OV> 02/07/25 1339 Narrative 02/07/2025 1:41 PM EDT [facility] [address] [place] [address] Mammography Report Signed Patient: Zeynep Abbasi MR#: [id number] : 1950 Acct:[id number] Age/Sex: 74 / F Adm Date: 02/07/25 Loc: ID Room: Type: [facility] Attending Dr: Referral Self Ordering Provider: SELF,REFERRAL Date of Service: 02/07/25 Procedure(s): MM screening mammo BI w/CAD Accession Number(s): ([id number]) MM/MM screening mammo BI w/CAD: SCREENING Copies to: Hudson Lebron MD SELF,REFERRAL CLINICAL DATA: Screening for malignancy. SCREENING MAMMOGRAM - FULL FIELD DIGITAL WITH TOMOSYNTHESIS AND CAD COMPARISON:Mammograms dating back to 2020 Tomosynthesis craniocaudal and mediolateral oblique views of both breasts were obtained using low- dose digital technique. This examination was reviewed with the aid of CAD. FINDINGS: The breast tissue is composed of scattered fibroglandular densities. There are no dominant masses, typically malignant calcifications or architectural distortion. There has been no significant interval change. MM/MM screening mammo BI w/CAD Procedure Note Michael Cole Jr., - 02/07/2025 [place] [address] Mammography Report Signed Patient: Zeynep AbbasiMR#: [id number] : 1950Acct:[id number] Age/Sex: 74 / FAdm Date: 02/07/25 Loc: ID Room:Type: [facility] Attending Dr: Referral Self Ordering Provider: SELF,REFERRAL Date of Service: 02/07/25 Procedure(s): MM screening mammo BI w/CAD Accession Number(s): ([id number]) MM/MM screening mammo BI w/CAD:SCREENING Copies to: Hudson Lebron MD SELF,REFERRAL CLINICAL DATA: Screening for malignancy. SCREENING MAMMOGRAM - FULL FIELD DIGITAL WITH TOMOSYNTHESIS AND CAD COMPARISON:Mammograms dating back to 2020 Tomosynthesis craniocaudal and mediolateral oblique views of both breastswere obtained using low- dose digital technique. This examination was reviewed with the aid ofCAD. FINDINGS: The breast tissue is composed of scattered fibroglandular densities.There are no dominant masses, typically malignant calcifications or architectural distortion. There hasbeen no significant interval change. MM/MM screening mammo BI w/CAD IMPRESSION: NO MAMMOGRAPHIC EVIDENCE OF MALIGNANCY. ROUTINE FOLLOW-UP IS RECOMMENDED IN ONE YEAR. RESULT CODE: 1 Negative DENSITY CODE: 2 (approximately 25-50% glandular) There are scattered areasof fibroglandular density. FOLLOW UP: 1YR The false-negative rate of mammography is approximately 10-percent. Management of a palpable abnormality must be based on clinical grounds. Patient was entered into a reminder system with a target due date for thenext mammogram. Impression dictated by: Michael Cole Jr., D.ODanni 02/07/2025 1:39 PM Dictation Location: [facility] Dictated By: Michael Cole Jr, DO 02/07/25 1338 Signed By: <Electronically signed by Michael Cole Jr, DO inOV> 02/07/25 1339 Generic External Data Provider IMG BI PROCEDURES Final Result * (ABNORMAL) URINE CULTURE - [facility] (01/08/2025 8:57 PM EDT) [facility] URINE CULTURE - [facility] Urine Culture - [facility] Testing performed [facility] - [facility] [address] [address] [facility] URINE CULTURE - FR O:ESCCOL Isolated [facility]INE CULTURE - [facility] Urine Culture - [place] Count [facility] URINE CULTURE - FR >100,000 CFU/ml [facility] URINE CULTURE - [facility] Organism: 1.1 Antibiotic Interpretation SARAI Status [facility] URINE CULTURE - FR Amikacin S F(S) TB URINE CULTURE - [facility] Amoxicillin/Clavul anate S F(S) TB URINE CULTURE - [facility] Ampicillin S F(S) TB URINE CULTURE - [facility] Aztreonam S F(S) TB URINE CULTURE - [facility] Ceftazidime S F(S) TB URINE CULTURE - [facility] Ceftazidime/Avibac harris S F(S) TB URINE CULTURE - [facility] Ceftolozane/Tazoba ctam S F(S) TB URINE CULTURE - [facility] Ciprofloxacin S F(S) TB URINE CULTURE - [facility] Ertapenem S F(S) TB URINE CULTURE - [facility] Gentamicin S F(S) TB URINE CULTURE - [facility] Levofloxacin S F(S) TB URINE CULTURE - [facility] Meropenem S F(S) TB URINE CULTURE - [facility] Meropenem/Vaborbac harris S F(S) TB URINE CULTURE - [facility] Nitrofurantoin S F(S) TB URINE CULTURE - [facility] Tetracycline S F(S) TB URINE CULTURE - [facility] Tigecycline S F(S) TB URINE CULTURE - [facility] Tobramycin S F(S) TB URINE CULTURE - [facility] Ampicillin/Sulbact am S F(S) TB URINE CULTURE - [facility] Cefazolin S F(S) [facility] URINE CULTURE - [facility] Cefepime S F(S) [facility] URINE CULTURE - FR Ceftriaxone S F(S) [facility] URINE CULTURE - [facility] Cefuroxime S F(S) [facility] URINE CULTURE - [facility] Piperacillin/Tazob actam S F(S) [facility] URINE CULTURE - FR Trimethoprim/Sulfa S F(S) [facility] 01/08/2025 8:57 PM EDT 01/08/2025 9:06 PM EDT Narrative [facility] - 01/11/2025 1:24 PM EDT Generic External Data Provider LAB BLOOD ORDERAB LES Final Result Performing Organization Address [facility]/ZIP Co de Phone Number [facility] * ANAEROBE IDENTIFICATION ONLY (01/08/2025 8:05 PM EDT) ANAID1 Anaerobe Identification Only WILL FOLLOW [facility] ANAID1 [facility] ANAID1 Specimen has been received and testing has been initiated. [facility] ANAID1 [facility] ANAID1 No anaerobes recovered. [facility] ANAID1 Performed at: - [facility] ANAID1 [address] [place], [place] [id number] [facility] ANAID1 Natural [employer] Trader: Patrick Cohen PhD, Phone: [phone] [facility] 01/08/2025 8:05 PM EDT 01/09/2025 10:31 AM EDT [facility]ative [facility] 01/13/2025 2:08 PM EDT Generic External Data Provider LAB BLOOD ORDERAB LES Final Result Performing Organization Address City/[facility]/ZIP Co de Phone Number [facility] * (ABNORMAL) AEROBE ID + SUSCEPT (01/08/2025 8:05 PM EDT) Only the most recent of2 resultswithin the time period is included. AEROBE ID + SUSCEPT Aerobe ID + Suscept Organism: Gram negative yong : [facility] AEROBE ID + SUSCEPT *ABNORMAL* [facility] AEROBE ID + SUSCEPT Received anaerobic bottle only. [facility] AEROBE ID + SUSCEPT Identification and sensitivities to follow. [facility] AEROBE ID + SUSCEPT Gram negative yong [facility] AEROBE ID + SUSCEPT Organism: Escherichia coli. : [facility] AEROBE ID + SUSCEPT *ABNORMAL* [facility] AEROBE ID + SUSCEPT Received anaerobic bottle only. [facility] AEROBE ID + SUSCEPT Escherichia coli. [facility] AEROBE ID + SUSCEPT O:ESCHCO Isolated [facility] AEROBE ID + SUSCEPT O:GNR Isolated [facility] AEROBE ID + SUSCEPT Organism: 1.1 Antibiotic Interpretation SARAI Status [facility] AEROBE ID + SUSCEPT AMOXICILLIN/CLAVUL ANIC ACID S F(S) TB AEROBE ID + SUSCEPT Ampicillin S F(S) TB AEROBE ID + SUSCEPT Cefazolin S F(S) [facility] AEROBE ID + SUSCEPT Cefepime S F(S) TB AEROBE ID + SUSCEPT Cefoxitin S F(S) TB AEROBE ID + SUSCEPT Cefpodoxime S F(S) [facility] AEROBE ID + SUSCEPT Ceftriaxone S F(S) TB AEROBE ID + SUSCEPT Ciprofloxacin S F(S) [facility] AEROBE ID + SUSCEPT Ertapenem S F(S) [facility] AEROBE ID + SUSCEPT Gentamicin S F(S) [facility] AEROBE ID + SUSCEPT Levofloxacin S F(S) TB AEROBE ID + SUSCEPT Meropenem S F(S) TB AEROBE ID + SUSCEPT Tetracycline S F(S) [facility] AEROBE ID + SUSCEPT Tobramycin S F(S) TB AEROBE ID + SUSCEPT Trimethoprim/Sulfa methoxazole S F(S) TB AEROBE ID + SUSCEPT Piperacillin/Tazob actam S F(S) H 01/08/2025 8:05 PM EDT 01/09/2025 10:31 AM EDT Narrative [facility] - 01/13/2025 2:08 PM EDT us Generic External Data Provider LAB BLOOD ORDERAB LES Final Result LISETTESHAGUFTA [facility] * Colonoscopy (01/31/2022 12:00 PM EDT) Anatomical Region Laterality Modality Endoscopy 01/31/2022 12:0 0 PM EDT Narrative 01/31/2022 12:00 PM EDT PERFORMED AT [facility] LOCATION:[id number] Procedure Note CONVERSION, GENERIC - 11/20/2022 PERFORMED AT [facility] LOCATION:[id number] Hudson Lebron MD ENDOSCOPY PROCEDURE ORDERABL ES Final Result from Last 3 Months or Most Recently Relevant to Health Maintenance Insurance [facility] [place] [address] Advance Directives Documents on File Type Date Recorded Patient Distributor Sales Consultant Expl anation Power of Balling Head Tender 08/25/2024 3:53 PM 10-08 Living Will Advance Directives and Living Will 08/25/2024 3:49 PM 2022-10-08 Living Wi ll Care Teams Assembler Watch Train Relationship Specialty Start Date End Date Hudson Lebron MD [address] [place] [facility] [address] [place] [address] PCP - General 12/19/22 Hudson Lebron MD 112 [facility] 100 [place] [address] PCP - ACO Reach 09/05/23 Gonsalo Stevens MD [address] [address] Referring Physician Nephrology 11/17/23 Estella Gong DO [address] [place] [address] Referring Physician Neurology 08/11/24 Maribeth Powers NP [address] [place] [address] Nurse Practitioner Neurology 10/21/24 Cassi Wright, ISRA [address] [address] [place] [address] Registered Nurse Family Medicine 01/11/25
--- OUTSIDE RECORDS SUMMARY | 2025-03-14 21:28 | XMS_ITS | Encounter Summary ---
Author Organization [facility] Address [address] [facility] [place] [address] Care Team Providers Care C D Still Operator Name Role Phone Hudson Lebron MD Primary Care Provider + [phone] Hudson Lebron MD Unavailable [phone] German Stevens Unavailable Estella Gong DO Unavailable [phone] Maribeth Powers NP Unavailable [phone] Cassi Wright RN Unavailable [phone] Encounter Details Date Type Department Care Team (Late st Contact Info) Description 11/10/2024 Orders Only [facility] [place] [facility] Family Medicine [address] [place] [address] Hudson Lebron MD 112 [facility] [address] [place] [address] Social History Tobacco Use Types Packs/Day Years [...] How often do you attend chur or cheondoism services? More than 4 times per year 12/30/2023 Do you belong to any clubs o r organizations such as islam groups, unions, fraternal or athletic groups, or [...] Recorded Patient Health Questionnaire-2 Score 0 10/25/2024 [facility] - Occupational Stress Questionnaire Answer [...] place to sleep or slept in a group home (including now)? No 12/19/2022 Housing Stability Vital [...] were you homeless or living in a group home (including now)? No 12/30/2023 Education Answer Date [...] [address] [place] [address] Hudson Lebron MD [address] [place] [address] (Fax) 07/10/2026 11:30 AM EST Office Visit [facility] [place] [facility] [address] [place] [address] José Luis Brennan MD [address] [place] [address] documented as of this encounter Visit Diagnoses Not on filedocumented in this encounter Care Teams C D Still Operator Relationship Specialty Start Date End Date Hudson Lebron MD [address] [place] [address] (Fax) PCP - General 12/19/22 Hudson Lebron MD [address] [place] [address] (Fax) PCP - ACO Reach 09/05/23 Gonsalo Stevens MD [address] [place] [address] Referring Physician Nephrology 11/17/23 Estella Gong DO [address] [place] [address] Referring Physician Neurology 08/11/24 Maribeth Powers NP [address] [place] [address] Nurse Practitioner Neurology 10/21/24 Cassi Wright, ISRA [address] [place] [address] Registered Nurse Family Medicine 01/11/25 documented as of this encounter
--- OUTSIDE RECORDS SUMMARY | 2025-03-14 21:28 | XMS_ITS | Encounter Summary ---
Author Organization [facility] Address [address] [facility] [place] [address] Care Team Providers Care Director Business Travel Name Role Phone Hudson Lebron MD Primary Care Provider [phone] Hudson Lebron MD Unavailable [phone] German Stevens Unavailable Estella Gong DO Unavailable [phone] Maribeth Powers NP Unavailable [phone] Cassi Wright RN Unavailable [phone] Encounter Details Date Type Department Care Team (Late st Contact Info) Description 11/16/2024 Results Follow-Up [place] [address] Family Medicine 112 [facility] 100 [place] [address] Hudson Lebron MD 112 [facility] 100 [place] [address] POCT urinalysis dipstick manually resulted, URINARY TRACT INFECTION (HTRX) Social History Tobacco Use Types Packs/Day Years [...] week 12/30/2023 [facility]ism services? More than 4 times per year 12/30/2023 Do you belong to any clubs o r organizations such as confucianism groups, unions, fraternal or athletic groups, or [...] Recorded Patient Health Questionnaire-2 Score 0 10/25/2024 [facility] of Occupat ional Health - Occupational Stress [...] place to sleep or slept in a assisted (including now)? No 12/19/2022 Housing Stability Vital Sign Answer Giancarlo e Recorded In the last 12 months, was t here a time when you were not able to pay the mortgage or rent on time? No 12/30/2023 In the past 12 months, how m any times have you moved where you were living? 0 12/30/2023 At any time in the past 12 m [facility], were you homeless or living in a assisted (including now)? No 12/30/2023 Education Answer Date [...] encounter Miscellaneous Notes * Telephone Encounter - Edward J Hemeyer, MD - 11/16/2024 9:36 AM EDT Notify her that the urinalysis and the culture were not consistent with the urinary tract infection. documented in this encounter Plan of Treatment Upcoming Encounters Date Type Department Care Team (Late st Contact Info) Description 04/06/2025 11:00 AM EDT Office Visit [facility] [place] [facility] 112 [facility] 100 [place] [address] Hudson Lebron MD [address] [address] 07/10/2026 11:30 AM EST Office Visit [facility] [address] [place] [address] José Luis Brennan MD [address] Jesus [address] [place] [address] documented as of this encounter Visit Diagnoses Not on filedocumented in this encounter Care Teams Director Business Travel Relationship Specialty Start Date End Date Hudson Lebron MD [address] [address] (Fax) PCP - General 12/19/22 Hudson Lebron MD [address] [address] (Fax) PCP - ACO Reach 09/05/23 Gonsalo Stevens MD 112 [address] [place] [address] Referring Physician Nephrology 11/17/23 Estella Gong DO [address] [place] [address] Referring Physician Neurology 08/11/24 Maribeth Powers NP [address] [place] [address] Nurse Practitioner Neurology 10/21/24 Cassi Wright, RN [address] [facility] [address] [place] [address] [place] [address] Registered Nurse Family Medicine 01/11/25 documented as of this encounter
--- OUTSIDE RECORDS SUMMARY | 2025-03-14 21:29 | XMS_ITS | Clinical Summary ---
Author Organization [facility] Address [address] [facility], [address] [place] [address] Care Team Providers Care Tv Host Name Role Phone Unavailable Primary Care Provider Unavailabl e Allergies Active Allergy Reactions Criticality Noted Date Comments Pollen Extract 02/09/2018 Statins Other (See Comments) Low 03/29/2024 Muscle aches myalgia Medications zolpidem (AMBIEN) 10 MG tablet Take 1 tablet by mouth nightly as needed (Insomnia). Active senna (SENOKOT) 8.6 MG tablet Take 1 tablet by mouth daily Active Psyllium 48.57 % POWD Take 3 g by mouth daily as needed (constipation ) Active POTASSIUM PO Take 1 tablet by mouth nightly Active naproxen (NAPROSYN) 250 MG tablet Take 1 tablet by mouth daily as needed Active magnesium Oxide 500 MG TABS Take 1 tablet by mouth nightly Active L-Lysine 1000 MG TABS Take 1,000 mg by mouth every morning Active losartan (COZAAR) 100 MG tablet Take 1 tablet by mouth daily 02/04/2025 Active gabapentin (NEURONTIN) 100 MG capsule Take 1 capsule by mouth in the morning and at bedtime. 03/02/2024 Active fluticasone (FLONASE) 50 MCG/ACT nasal spray 1 spray by Nasal route daily as needed for Rhinitis 01/11/2025 07/10/19 26 Active estradiol (ESTRACE) 0.1 MG/GM vaginal cream Apply to vagina nightly for 1 week then every Friday//Friday. 01/18/2025 01/19/20 26 Active esomeprazole (NEXIUM) 20 MG delayed release capsule Take 1 capsule by mouth every morning (before breakfast) Active aspirin 81 MG EC tablet Take 1 tablet by mouth every 7 days Active Cholecalciferol 100 MCG (4000 UT) CAPS Take 100 mcg by mouth daily (with breakfast) Active Misc Natural Products (FIBER 7 PO) as needed Active cyclobenzaprine (FLEXERIL) 10 MG tablet Take 1 tablet by mouth as needed Active amLODIPine (NORVASC) 10 MG tablet Take 1 tablet by mouth daily Active MULTIPLE VITAMIN IV in the morning. Active Active Problems Problem Noted Date Diagnosed Date Vitamin D deficiency 02/24/2025 Anemia, unspecified 02/24/2025 Hypo-osmolality and hyponatremia 02/24/2025 Atherosclerosis of renal artery 02/24/2025 Essential hypertension 02/24/2025 Renovascular hypertension 02/24/2025 Recurrent UTI (urinary tract infection) Encounters Date Type Department Care Team Description 02/24/2025 Abstract [facility] Part [address] [place] [address] Ignacio Bae MD Recurrent UTI (urinary tract infection) (Primary Dx) 02/24/2025 Telephone [facility] Part of [address] [place] [address] Anyi Parsons, POSSUM TRAPPER - INSPECTOR [employer]ATIONS Other from Last 3 Months Social History Tobacco Use Types Packs/Day Years Used Date Smoking Tobacco: Never Passive Smoke Exposure: Never Smokeless Tobacco: Never Tobacco Cessation:Counseling Given: Not Answered Comments Unknown Sex and Gender Information Value Date Recorded Sex Assigned at Not on file Legal Sex Female 10:19 AM EDT Gender Identity Female 02/21/2025 10:19 AM EDT Sexual Orientation Not on file Plan of Treatment Upcoming Encounters Date Type Department Care Team (Late st Contact Info) Description 03/21/2025 1:30 PM EDT Office Visit [facility] Part of [address] [place] [address] Ignacio Bae MD [address] [place] [address], [address] [place] [address] Recurrent UTI- Urge incontinence of urine Health Maintenance Due Date Last Done Comments Depression Screen 1962 Hepatitis C screen 1968 DTaP/Tdap/Td vaccine (1 - Tdap) 1969 Lipids 1990 Colonoscopy 1995 Colorectal Cancer Screen 1995 FIT/FOBT: Average risk 1995 Fecal-DNA (Cologuard): Average risk 1995 Sigmoidoscopy/CT colonography 1995 Shingles vaccine (1 of 2) 2000 DEXA (modify frequency per FRAX score) 2005 COVID-19 Vaccine ( - season) 2024 Flu vaccine (#1) 02/04/2025 05/13/2024, , 04/26/2022, Additional history exists Respiratory Syncytial Virus (RSV) or age 60 yrs+ (1 - 1-dose 75+ series) 2025 Breast cancer screen 02/07/2027 02/07/2025 Pneumococcal 50+ years Vaccine Completed 07/07/2019, 07/09/2018, 04/06/2018, Additional history exists Hepatitis A vaccine Aged Out No longe r eligible based on patient's age to complete this topic Hepatitis B vaccine Aged Out No longe r eligible based on patient's age to complete this topic Hib vaccine Aged Out No longer eligi ble based on patient's age to complete this topic Meningococcal (ACWY) vaccine Aged Out No longer eligible based on patient's age to complete this topic Meningococcal B vaccine Aged Out No l onger eligible based on patient's age to complete this topic Polio vaccine Aged Out No longer elig ible based on patient's age to complete this topic
--- OUTSIDE RECORDS SUMMARY | 2025-03-14 21:29 | XMS_ITS | Encounter Summary ---
[facility] Address [id number] [address] [place] [address] Care Team Providers Care Pharmacologist Name Role Phone Hudsno Lebron MD Primary Care Provider + [phone] Encounter Details Date Type Department Care Team (Late st Contact Info) Description 12/26/2020 [facility] [address] [place] [address] Serena Leon MA Social History Tobacco Use [...] on filedocumented in this encounter Care Teams Pharmacologist Relationship Specialty Start Date End Date Hudson Lebron MD PCP - General 02/06/18 documented as of this encounter
--- OUTSIDE RECORDS SUMMARY | 2025-03-14 21:29 | XMS_ITS | Encounter Summary ---
Author Organization [facility] Address [address] [facility] [place] [address] Care Team Providers Care Work And Family Life Consultant Name Role Phone Hudson Lebron MD Primary Care Provider + [phone] Hudson Lebron MD Unavailable [phone] German Stevens Unavailable Estella Gong DO Unavailable [phone] Maribeth Powers NP Unavailable [phone] Cassi Wright RN Unavailable [phone] Encounter Details Date Type Department Care Team (Late st Contact Info) Description 03/10/[address] Medicine [address] [place] [id number] Jose, Sana, [place] Social History Tobacco Use Types Packs/Day Years [...] 01/17/2025 How often do you attend chur or pentecostalism services? More than 4 times per year 01/17/2025 Do you belong to any clubs o r organizations such as spiritism groups, unions, fraternal or athletic groups, or [...] Recorded Patient Health Questionnaire-2 Score 0 01/18/2025 [facility] of Occupat ional Health - Occupational [...] place to sleep or slept in a alf (including now)? No 12/19/2022 Housing Stability Vital Sign Answer Giancarlo e Recorded In the last 12 months, was t here a time when you were not able to pay the mortgage or rent on time? No 01/17/2025 In the past 12 months, how m any times have you moved where you were living? 0 01/17/2025 At any time in the past 12 m [facility], were you homeless or living in a alf (including now)? No 01/17/2025 Education Answer Date [...] encounter Miscellaneous Notes * Telephone Encounter - Sana Garcia MA - 03/10/2025 9:22 AM EDT Pt is due this month for her MWV documented in this encounter Plan of Treatment Upcoming Encounters Date Type Department Care Team (Late st Contact Info) Description 04/06/2025 11:00 AM EDT Office Visit [facility] [place] [facility] [address] [place] [address] Hudson Lebron MD [address] [place] [address] 07/10/2026 11:30 AM EST Office Visit [facility] [address] [place] [address] José Luis Brennan MD [address] [place] [address] documented as of this encounter Visit Diagnoses Not on filedocumented in this encounter Care Teams Work And Family Life Consultant Relationship Specialty Start Date End Date Hudson Lebron MD [address] [place] [address] (Fax) PCP - General 12/19/22 Hudson Lebron MD [address] [place] [address] (Fax) PCP - ACO Reach 09/05/23 Gonsalo Stveens MD [address] [place] [address] Referring Physician Nephrology 11/17/23 Estella Gong DO [address] [place] [address] Referring Physician Neurology 08/11/24 Maribeth Powers NP [address] [place] [address] Nurse Practitioner Neurology 10/21/24 Cassi Wright, RN [address] [address] Registered Nurse Family Medicine 01/11/25 documented as of this encounter
--- OUTSIDE RECORDS SUMMARY | 2025-03-14 21:29 | XMS_ITS | Encounter Summary ---
Author Organization [facility] Address [address] [place] [address] Care Team Providers Care Hospice Nurse Practitioner Name Role Phone Hudson Lebron MD Unavailable Hudson Lebron MD Primary Care Provider [phone] Hudson Lebron MD Unavailable [phone] German Stevens Unavailable Estella Gong DO Unavailable [phone] Maribeth Powers NP Unavailable [phone] Cassi Wright RN Unavailable Encounter Details Date Type Department Care Team (Late st Contact Info) Description 12/17/2022 Orders Only [facility] [place] Family Medicine [address] [place] [address] Hudson Lebron MD 112 [facility] [address] [place] [address] Social History Tobacco Use Types Packs/Day Years [...] often do you attend chur ch or hoahaoism services? More than 4 times per year 12/19/2022 Do you belong to any clubs o r organizations such as sikh groups, unions, fraternal or athletic groups, or school groups? Yes 12/19/2022 How often do you attend meet ings of the clubs or organizations you belong to? More than 4 times per year 12/19/2022 Are you , , di vorced, , never , or living with a partner? 12/19/2022 [facility] of Occupat ional Health - Occupational Stress [...] in a assisted (including now)? No 12/19/2022 Education Answer Date [...] Description 04/06/2025 11:00 AM EDT Office Visit [facility] 112 [facility] 100 [place] [address] Hudson Lebron MD 112 [facility] 100 [place] [address] (Fax) 07/10/2026 11:30 AM EST Office Visit [facility] [address] [facility] [address] [place] [address] José Luis Brennan MD [address] [facility] [address] [place] [address] documented as of this encounter Procedures Procedure [...] on filedocumented in this encounter Care Teams Hospice Nurse Practitioner Relationship Specialty Start Date End Date Hudson Lebron MD 112 [place] [address] [address] (Fax) PCP - ACO Reach 11/28/22 07/06/23 Hudson Lebron MD [address] [place] [address] [address] (Fax) PCP - General 12/19/22 Hudson Lebron MD [address] [address] PCP - ACO Reach 09/05/23 Gonsalo Stevens MD [address] [address] Referring Physician Nephrology 11/17/23 Estella Gong DO [address] [place] [address] Referring Physician Neurology 08/11/24 Maribeth Powers NP [address] [place] [address] Nurse Practitioner Neurology 10/21/24 Cassi Wright, RN [address] [address] Registered Nurse Family Medicine 01/11/25 documented as of this encounter
--- OUTSIDE RECORDS SUMMARY | 2025-03-14 21:29 | XMS_ITS | Encounter Summary ---
Author Organization [facility] Address [address] [facility] [place] [address] Care Team Providers Care Sharepoint Application Architect Name Role Phone Hudson Lebron MD Primary Care Provider + [phone] Hudson Lebron MD Unavailable [phone] German Stevens Unavailable Estella Gong DO Unavailable [phone] Maribeth Powers NP Unavailable [phone] Cassi Wright RN Unavailable [phone] Encounter Details Date Type Department Care Team (Late st Contact Info) Description 02/07/2025 External Result Encounter [facility] External Department Unsolicited Provider, Generic External Data Social History Tobacco Use Types Packs/Day Years [...] How often do you attend chur or anglican services? More than 4 times per year 01/17/2025 Do you belong to any clubs o r organizations such as congregational groups, unions, fraternal or athletic groups, or [...] Recorded Patient Health Questionnaire-2 Score 0 01/18/2025 [facility] [place] of Occupat ional Health - Occupational Stress [...] time in the past 12 m [facility], were you homeless or living in a mcc (including now)? No 01/17/2025 Education Answer Date [...] 04/06/2025 11:00 AM EDT Office Visit [facility] 112 [facility] [address] [place] [address] Hudson Lebron MD 112 [facility] [address] [place] [address] (Fax) 07/10/2026 11:30 AM EST Office Visit [facility] [place] [facility] [address] [place] [address] José Luis Brennan MD [address] Jesus [address] [place] [address] documented as of this encounter Procedures Procedure Name Priority Date/Time Associated Diagnosis Comments BI MAMMOGRAM SCREENING TOMOSYNTHESIS BILATERAL 02/07/2025 1:38 PM EDT documented in this encounter Results * Bilateral screening mammogram with tomosynthesis [...] Jr., D.ODanni 02/07/2025 1:39 PM Dictation Location: [id number] Dictated By: Michael Cole Jr, DO 02/07/25 1338 Signed By: <Electronically signed by Michael Cole Jr, DO in OV> 02/07/25 1339 Narrative 02/07/2025 1:41 PM EDT [facility] [address] [place] [address] Mammography Report Signed Patient: Zeynep Abbasi MR#: [id number] : 1950 Acct:[id number] Age/Sex: 74 / F Adm Date: 02/07/25 Loc: [place] Room: Type: REG CLI Attending Dr: Referral Self Ordering Provider: SELF,REFERRAL Date of Service: 02/07/25 Procedure(s): MM screening mammo BI w/CAD Accession Number(s): ([id number]) MM/MM screening mammo BI w/CAD: SCREENING Copies [...] BI w/CAD Procedure Note Michael Cole Jr., DO - 02/07/2025 [facility] [address] [address] Mammography Report Signed Patient: Zeynep AbbasiMR#: [id number] : 1950Acct:[id number] Age/Sex: 74 / FAdm Date: 02/07/25 Loc: [place] Room:Type: REG CLI Attending Dr: Referral Self Ordering Provider: SELF,REFERRAL Date of Service: 02/07/25 Procedure(s): MM screening mammo BI w/CAD Accession Number(s): ([id number]) MM/MM screening mammo BI w/CAD:SCREENING Copies to: [...] mammogram. Impression dictated by: Michael Cole Jr., D.O. 02/07/2025 1:39 PM Dictation Location: [facility] Dictated By: Michael Cole Jr, DO 02/07/25 1338 Signed By: <Electronically signed by Michael Cole Jr, DO inOV> 02/07/25 1339 us Generic External Data Provider IMG BI PROCEDURES Final Result documented in this encounter Visit Diagnoses Not on filedocumented in this encounter Care Teams Sharepoint Application Architect Relationship Specialty Start Date End Date Hudson Lebron MD [address] [address] (Fax) PCP - General 12/19/22 Hudson Lebron MD [address] [place] [address] [address] PCP - ACO Reach 09/05/23 Gonsalo Stevens MD [address] [place] [address] [address] Referring Physician Nephrology 11/17/23 Estella Gong DO [address] [place] [address] Referring Physician Neurology 08/11/24 Maribeth Powers NP [address] [place] [address] Nurse Practitioner Neurology 10/21/24 Cassi Wright, RN [address] [address] Registered Nurse Family Medicine 01/11/25 documented as of this encounter
--- OUTSIDE RECORDS SUMMARY | 2025-03-14 21:29 | XMS_ITS | Encounter Summary ---
Author Organization [facility] Address [address] [facility] [place] [address] Care Team Providers Care Retail Store Clerk Name Role Phone Hudson Lebron MD Unavailable [phone] Hudson Lebron MD Primary Care Provider [phone] Hudson Lebron MD Unavailable [phone] German Stevens Unavailable Estella Gong DO Unavailable [phone] Maribeth Powers NP Unavailable [phone] Cassi Wright RN Unavailable Encounter Details Date Type Department Care Team (Late st Contact Info) Description 12/11/2022 Abstract [facility] [address] [facility] [address] [place] [address] José Luis Brennan MD [address] [facility] 210 [place] [address] Social History Tobacco Use Types Packs/Day Years [...] Visit [facility] [place] [facility] [address] [facility] 100 [place] [address] Hudson Lebron MD [address] [place] [address] (Fax) 07/10/2026 11:30 AM EST Office Visit [facility] [place] [facility] [address] [place] [address] José Luis Brennan MD [address] [place] [address] documented as of this encounter Visit Diagnoses Not on filedocumented in this encounter Care Teams Retail Store Clerk Relationship Specialty Start Date End Date Hudson Lebron MD [address] [place] [address] (Fax) PCP - ACO Reach 11/28/22 07/06/23 Hudson Lebron MD [address] [place] [address] (Fax) PCP - General 12/19/22 Hudson Lebron MD [address] [place] [address] (Fax) PCP - ACO Reach 09/05/23 Gonsalo Stevens MD [address] [place] [address] Referring Physician Nephrology 11/17/23 Estella Gong DO [address] [place] [address] Referring Physician Neurology 08/11/24 Maribeth Powers NP [address] [place] [address] Nurse Practitioner Neurology 10/21/24 Cassi Wright, RN [address] [address] Registered Nurse Family Medicine 01/11/25 documented as of this encounter
--- OUTSIDE RECORDS SUMMARY | 2025-03-14 21:29 | XMS_ITS | Clinical Summary ---
Author Organization [facility] Address [address] [place] [address] Care Team Providers Care Supervisor Lens Generating Name Role Phone Hudson Lebron MD Primary [...] N ot on file 06/14/2020 Data from: [email or web address] Last address used for calculation Not on [...] of 2) 2000 Bone Density Screening 2015 Advance Directive Discussion 07/07/2024 Influenza Vaccine (#1) 2025 , 05/10/2019, 04/13/2019, Additional history exists RSV Vaccine (1 - 1-dose 75+ series) 2025 Pneumococcal Vaccine: 50+ Completed 2018, 07/19/2017, 07/10/2017, Additional history exists Insurance [place] [facility] MEDICARE MEDICARE RAILROAD Care Teams Supervisor Lens Generating Relationship Specialty Start Date End Date Hudson Lebron MD [address] [place] [address] PCP - General Family Medicine 02/06/18
--- OUTSIDE RECORDS SUMMARY | 2025-03-14 21:29 | XMS_ITS | Encounter Summary ---
Author Organization [facility] Address [address] [place] [address] Care Team Providers Care Rodeo Clown Name Role Phone Hudson Lebron MD Primary Care Provider + [phone] Hudson Lebron MD Unavailable +[phone] German Stevens Unavailable Estella Gong DO Unavailable [phone] Maribeth Powers NP Unavailable [phone] Cassi Wright RN Unavailable [phone] Encounter Details Date Type Department Care Team (Late st Contact Info) Description 02/21/2025 Orders Only [facility] [address] [place] [id number] Jose, October, [place] Recurrent UTI; Urge incontinence of urine Social History Tobacco Use Types Packs/Day Years [...] often do you attend chur ch or adventism services? More than 4 times per year 01/17/2025 Do you belong to any clubs o r organizations such as adventism groups, unions, fraternal or athletic groups, or [...] Recorded Patient Health Questionnaire-2 Score 0 01/18/2025 [facility] [place] of Occupat ional Health - Occupational Stress [...] place to sleep or slept in a longterm (including now)? No 12/19/2022 Housing Stability Vital Sign Answer Giancarlo e Recorded In the last 12 months, was t here a time when you were not able to pay the mortgage or rent on time? No 01/17/2025 In the past 12 months, how m any times have you moved where you were living? 0 01/17/2025 At any time in the past 12 m [facility], were you homeless or living in a longterm (including now)? No 01/17/2025 Education Answer Date [...] Office Visit [facility] [address] [facility] [address] [place] [address] Hudson Lebron MD [address] [place] [address] (Fax) 07/10/2026 11:30 AM EST Office Visit [facility] Burnett [facility] [address] [place] [address] José Luis Brennan MD [address] [place] [address] documented as of this encounter Visit Diagnoses Diagnosis Recurrent UTI Urinary tract infection, site not specified Urge incontinence of urine Urge incontinence documented in this encounter Care Teams Rodeo Clown Relationship Specialty Start Date End Date Hudson Lebron MD [address] [place] [address] (Fax) PCP - General 12/19/22 Hudson Lebron MD [address] [place] [address] (Fax) PCP - ACO Reach 09/05/23 Gonsalo Stevens MD [address] [place] [address] Referring Physician Nephrology 11/17/23 Estella Gong DO [address] [place] [address] Referring Physician Neurology 08/11/24 Maribeth Powers NP [address] [place] [address] Nurse Practitioner Neurology 10/21/24 Cassi Wright, RN [address] [facility] [place] [address] Registered Nurse Family Medicine 01/11/25 documented as of this encounter
--- OUTSIDE RECORDS SUMMARY | 2025-03-14 21:29 | XMS_ITS | Clinical Summary ---
Author Organization [employer] [facility] Address [id number] [address] [place] [address] Care Team Providers Care Major Gifts Director Name Role Phone Hudson Lebron MD Primary Care Provider + [phone] Allergies Active Allergy Reactions Criticality Noted Date [...] of 2) 2000 Fall Risk Screening 2015 Adult BMI Screening 12/07/2024 12/08/2023 Tobacco Screening 12/07/2024 12/08/2023 COVID-19 Vaccine (2024-2 6 season) 2025 05/05/2023, 04/21/2021, 08/26/2020, Additional history exists Influenza Vaccine 03/07/2025 05/13/2024, , 04/26/2022, Additional history exists Medical Devices Not on file Insurance [facility] MEDICARE Care Teams Major Gifts Director Relationship Specialty Start Date End Date Hudson Lebron MD PCP - General 02/06/18
--- OUTSIDE RECORDS SUMMARY | 2025-03-14 21:29 | XMS_ITS ---
Author Organization [facility] Address [address] [facility] [place] [address] Care Team Providers Care Undergraduate Intern Name Role Phone Hudson Lebron MD Primary Care Provider + [phone] Hudson Lebron MD Unavailable +[phone] German Stevens Unavailable Estella Gong DO Unavailable [phone] Maribeth Powers NP Unavailable [phone] Cassi Wright RN Unavailable [phone] Chronic Care Management (CCM) Status:Enrolled (Active) Start date:01/11/2025 Enrollment date:01/11/2025 Overview Please assess for Care Management needs. 01/11/25, 10:18 AM - Cassi Wright RN- Patient gives verbal consent to be enrolled in CCM Program and understands there could be a bill for this service. CCM Bill No Case Team Name Relationship Phone Cassi Wright RN(Responsible Staff) Registere d Nurse [phone] Continued Care and Services Coordination
--- OUTSIDE RECORDS SUMMARY | 2025-03-14 21:29 | XMS_ITS | Encounter Summary ---
Author Organization [facility] Address [address] [place] [address] Care Team Providers Care Reaming Press Operator Name Role Phone Hudson Lebron MD Unavailable Hudson Lebron MD Primary Care Provider [phone] Hudson Lebron MD Unavailable [phone] German Stevens Unavailable Estella Gong DO Unavailable [phone] Maribeth Powers NP Unavailable [phone] Cassi Wright RN Unavailable Encounter Details Date Type Department Care Team (Late st Contact Info) Description 05/26/2023 Abstract [facility] Casillas 521 Family Medicine [address] [facility] [place] [address] Hudson Lebron MD [address] [place] [address] Social History Tobacco Use Types Packs/Day Years [...] , or living with a partner? 12/19/2022 [facility] of Occupat ional Health - [...] Office Visit [facility] [address] [address] Hudson Lebron MD [address] [address] (Fax) 07/10/2026 11:30 AM EST Office Visit [facility] BOLIVAR [address] [place] [address] José Luis Brennan MD [address] [place] [address] documented as of this encounter Visit Diagnoses Not on filedocumented in this encounter Care Teams Reaming Press Operator Relationship Specialty Start Date End Date Hudson Lebron MD 112 [facility] 100 [place] [address] PCP - ACO Reach 11/28/22 07/06/23 Hudson Lebron MD [address] [facility] 100 [place] [address] PCP - General 12/19/22 Hudson Lebron MD [address] [place] [address] PCP - ACO Reach 09/05/23 Gonsalo Stevens MD [address] [address] Referring Physician Nephrology 11/17/23 Estella Gong DO [address] [place] [address] Referring Physician Neurology 08/11/24 Maribeth Powers NP [address] [place] [address] Nurse Practitioner Neurology 10/21/24 Cassi Wright, RN [address] [place] [address] Registered Nurse Family Medicine 01/11/25 documented as of this encounter
--- OUTSIDE RECORDS SUMMARY | 2025-03-14 21:29 | XMS_ITS | Encounter Summary ---
Author Organization [facility] Address [address] [place] [address] Care Team Providers Care Investment Underwriter Name Role Phone Hudson Lebron MD Primary Care Provider [phone] Hudson Lebron MD Unavailable [phone] German Stevens Unavailable Estella Gong DO Unavailable [phone] Maribeth Powers NP Unavailable [phone] Cassi Wright RN Unavailable [phone] Encounter Details Date Type Department Care Team (Late st Contact Info) Description 12/17/2023 Orders Only [facility] Sonja 521 Family Medicine [address] [facility] [place] [address] Hudson Lebron MD 112 [facility] [address] [place] [address] (Fax) Social History Tobacco Use Types Packs/Day Years [...] week 12/19/2022 How often do you attend [facility] or taoism services? More than 4 times per year 12/19/2022 Do you belong to any clubs o r organizations such as jainism groups, unions, fraternal or athletic groups, or [...] more drinks on one occasion? Never 11/10/2023 [facility] of Occupat ional Health - Occupational [...] Office Visit [facility] 112 [facility] 100 [place] [address] Hudson Lebron MD 112 [facility] [address] [place] [address] (Fax) 07/10/2026 11:30 AM EST Office Visit Z[facility]HRAA BOLIVAR [address] [place] [address] José Luis Brennan MD [address] [place] [address] documented as of this encounter Visit Diagnoses Not on filedocumented in this encounter Care Teams Investment Underwriter Relationship Specialty Start Date End Date Hudson Lebron MD [address] [place] [address] (Fax) PCP - General 12/19/22 Hudson Lebron MD [address] [place] [address] PCP - ACO Reach 09/05/23 Gonsalo Stevens MD [address] [place] [address] Referring Physician Nephrology 11/17/23 Estella Gong DO [address] [place] [address] Referring Physician Neurology 08/11/24 Maribeth Powers, YOEL [address] [place] [address] Nurse Practitioner Neurology 10/21/24 Cassi Wright, ISRA [address] [facility] [address] [place] [address] Registered Nurse Family Medicine 01/11/25 documented as of this encounter
--- OUTSIDE RECORDS SUMMARY | 2025-03-14 21:29 | XMS_ITS | Encounter Summary ---
Author Organization [facility] Address [address] [facility] [place] [address] Care Team Providers Care Bedspread Seamer Name Role Phone Hudson Lebron MD Unavailable [phone] Hudson Lebron MD Primary Care Provider [phone] Hudsno Lebron MD Unavailable [phone] German Stevens Unavailable Estella Gong DO Unavailable [phone] Maribeth Powers NP Unavailable [phone] Cassi Wright RN Unavailable Encounter Details Date Type Department Care Team (Late st Contact Info) Description 01/08/2023 External Result Encounter [facility] External Department Unsolicited Cameron Flores MD [address] [facility] [address] [place] [address] Social History Tobacco Use Types Packs/Day Years [...] often do you attend chur ch or mandaen services? More than 4 times per year 12/19/2022 Do you belong to any clubs o r organizations such as advent groups, unions, fraternal or athletic groups, or school groups? Yes 12/19/2022 How often do you attend meet ings of the clubs or organizations you belong to? More than 4 times per year 12/19/2022 Are you , , di vorced, , never , or living with a partner? 12/19/2022 [facility] of Occupat [...] Office Visit [facility] 112 [facility] 100 [place] [address] Hudson Lebron MD 112 [facility] 100 [place] [address] 07/10/2026 11:30 AM EST Office Visit ZAHRAA BOLIVAR [address] [place] [address] Cameron Flores MD [address] [place] [address] documented as of this encounter [...] Leidy Dorman M.D.01/08/2023 3:01 PM Dictation Location: [facility] Transcribed By: ARIELLA 01/08/23 1501 Dictated By: Leidy Dorman MD 01/08/23 1458 Signed By: <Electronically signed by MD Leidy Dorman in OV> 01/08/23 1501 Narrative 01/09/2023 2:25 PM EDT [facility] [place] [facility] Main [place] [address] [place] [address] Mammography Report Signed Patient: Zeynep Abbasi MR#: [id number] : 1950 Acct:[id number] Age/Sex: 72 / F ADM Date: 01/08/23 Loc: [place] Room: Type: [facility] Attending Dr: Cameron Flores MD Copies to: [...] w/CAD Procedure Note Radiology, Radiologist, - 01/09/2023 [facility] [place] [facility] Main [place] [address] [place] [address] Mammography Report Signed Patient: Zeynep AbbasiMR#: [id number] : 1950Acct:[id number] Age/Sex: 72 / FADM Date: 01/08/23 Loc: [place] Room:Type: [facility] Attending Dr: Cameron Flores MD Copies to: [...] Leidy Dorman M.D.01/08/2023 3:01 PM Dictation Location: [facility] Transcribed By: ARIELLA 01/08/23 1501 Dictated By: eLidy Dorman MD 01/08/23 1458 Signed By: <Electronically signed by MD Leidy Dorman in OV> 01/08/23 1501 Cameron Flores MD IMG BI PROCEDURES Final Result documented in this encounter Visit Diagnoses Not on filedocumented in this encounter Care Teams Bedspread Seamer Relationship Specialty Start Date End Date Hudson Lebron MD [address] [place] [address] PCP - ACO Reach 11/28/22 07/06/23 Hudson Lebron MD [address] [place] [address] PCP - General 12/19/22 Hudson Lebron MD [address] [place] [address] PCP - ACO Reach 09/05/23 Gonsalo Stevens MD [address] [address] Referring Physician Nephrology 11/17/23 Estella Gong DO [address] [place] [address] Referring Physician Neurology 08/11/24 Maribeth Powers NP [address] [place] [address] Nurse Practitioner Neurology 10/21/24 Cassi Wright, ISRA [address] [place] [address] Registered Nurse Family Medicine 01/11/25 documented as of this encounter
--- OUTSIDE RECORDS SUMMARY | 2025-03-14 21:29 | XMS_ITS | Encounter Summary ---
Author Organization [facility] Address [address] [place] [address] Care Team Providers Care Electrical Tester Battery Name Role Phone Hudson Lebron MD Unavailable [phone] Hudson Lebron MD Primary Care Provider [phone] Hudson Lebron MD Unavailable [phone] German Stevens Unavailable Estella Gong DO Unavailable [phone] Maribeth Powers NP Unavailable [phone] Cassi Wright RN Unavailable Encounter Details Date Type Department Care Team (Late st Contact Info) Description 05/26/2023 Abstract [facility] Casillas 521 Family Medicine [address] [facility] [place] [address] Chepe Wilkinson MD [address] [place], [place] [address] Social History Tobacco Use Types Packs/Day Years [...] often do you attend chur ch or mormon services? More than 4 times per year 12/19/2022 Do you belong to any clubs o r organizations such as yazidism groups, unions, fraternal or athletic groups, or [...] place to sleep or slept in a senior living (including now)? No 12/19/2022 Education Answer Date [...] Office Visit [facility] [address] [place] [address] Hudson Lebron MD 112 [facility] 100 [place] [address] (Fax) 07/10/2026 11:30 AM EST Office Visit ZAHRAA BOLIVAR [address] [place] [address] José Luis Brennan MD [address] [place], [place] [address] documented as of this encounter Visit Diagnoses Not on filedocumented in this encounter Care Teams Electrical Tester Battery Relationship Specialty Start Date End Date Hudson Lebron MD [address] [place] [address] PCP - ACO Reach 11/28/22 07/06/23 Hudson Lebron MD [address] [place] [address] PCP - General 12/19/22 Hudson Lebron MD [address] [address] PCP - ACO Reach 09/05/23 Gonsalo Stevens MD [address] [address] Referring Physician Nephrology 11/17/23 Estella Gong DO [address] [place] [address] Referring Physician Neurology 08/11/24 Maribeth Powers NP [address] [place] [address] Nurse Practitioner Neurology 10/21/24 Cassi Wright, RN [address] [place] [address] Registered Nurse Family Medicine 01/11/25 documented as of this encounter
--- OUTSIDE RECORDS SUMMARY | 2025-03-14 21:29 | XMS_ITS | Encounter Summary ---
Author Organization [facility] Address [address] [place] [address] Care Team Providers Care Quality Control Director Name Role Phone Hudson Lebron MD Unavailable [phone] Hudson Lebron MD Primary Care Provider [phone] Hudson Lebron MD Unavailable [phone] German Stevens Unavailable Estella Gong DO Unavailable [phone] Maribeth Powers NP Unavailable [phone] Cassi Wright RN Unavailable Encounter Details Date Type Department Care Team (Late st Contact Info) Description 04/22/2023 Abstract [facility] Casillas 521 Family Medicine [address] [place] [address] Maribeth Powers NP Social History Tobacco Use [...] , or living with a partner? 12/19/2022 [facility] of Occupat ional Health - Occupational [...] a skilled nursing (including now)? No 12/19/2022 Education Answer Date [...] Office Visit [facility] [address] [facility] 100 [place] [address] Hudson Lebron MD 112 [facility] 100 [place] [address] (Fax) 07/10/2026 11:30 AM EST Office Visit ZAHRAA BOLIVAR [address] [place] [address] José Luis Brennan MD [address] [place] [address] documented as of this encounter Visit Diagnoses Not on filedocumented in this encounter Care Teams Quality Control Director Relationship Specialty Start Date End Date Hudson Lebron MD [address] [facility] 100 [place] [address] (Fax) PCP - ACO Reach 11/28/22 07/06/23 Hudson Lebron MD [address] [place] [address] PCP - General 12/19/22 Hudson Lebron MD [address] [place] [address] PCP - ACO Reach 09/05/23 Gonsalo Stevens MD [address] [place] [address] Referring Physician Nephrology 11/17/23 Estella Gong DO [address] [place] [address] Referring Physician Neurology 08/11/24 Maribeth Powers NP [address] [place] [address] Nurse Practitioner Neurology 10/21/24 Cassi Wright, ISRA [address] [place] [address] Registered Nurse Family Medicine 01/11/25 documented as of this encounter
--- OUTSIDE RECORDS SUMMARY | 2025-03-14 21:29 | XMS_ITS | Encounter Summary ---
Author Organization [facility] Address [address] [place] [address] Care Team Providers Care Test And Balance Engineer Name Role Phone Hudson Lebron MD Primary Care Provider Source Comments In the event this information is protected by the Federal Confidentiality of Alcohol and Drug AbusePatient Records regulations: The Federal rules restrict any use of the information to criminally investigate or prosecute any alcohol or drug abuse patient.[facility] Encounter Details Date Type Department Care Team (Late st Contact Info) Description 02/23/2018 Letters (in) Vascular Surg Dept [address] [place] [address] Jose G Wells MD [address] [place] [address] Social History Tobacco Use Types [...] 12:00 AM EDT Jose G Wells MD Supervisor Powdered Sugar Department of Vascular Surgery [address] [place], [place] [address] Office: [facility]/ [phone] Appointments: [facility]/ [phone] Fax: [phone] February 23, 2018 Hudson Lebron M.D. [address] [place] [address] FAX: [phone] NAME: [facility] NO: [id number] : 1950 DATE OF SERVICE: 02/23/2018 Dear [...] M.D. (Signed electronically) HUMBERTO/ Cc: Sujatha Ha [facility]/089 Audio #: [id number] Date Dictated: 02/23/2018 10:26:00 Date Typed: 02/23/2018 13:27:22 Date Revised: documented in this encounter Plan of Treatment Not on file documented as of this encounter Visit Diagnoses Not on filedocumented in this encounter Care Teams Test And Balance Engineer Relationship Specialty Start Date End Date Hudson Lebron MD [address] [place] [address] PCP - General Family Medicine 02/06/18 documented as of this encounter
--- OUTSIDE RECORDS SUMMARY | 2025-03-14 21:29 | XMS_ITS | Encounter Summary ---
Author Organization [facility] Address [address] [place] [address] Care Team Providers Care Molder Machine Tender Name Role Phone Hudson Lebron MD Primary Care Provider [phone] Hudson Lebron MD Unavailable [phone] German Stevens Unavailable Estella Gong DO Unavailable [phone] Maribeth Powers NP Unavailable [phone] Cassi Wright RN Unavailable [phone] Encounter Details Date Type Department Care Team (Late st Contact Info) Description 07/16/2023 Abstract [facility] Sonja 521 Family Medicine [address] [facility] [place] [place] [address] Estella Gong DO Social History Tobacco Use [...] often do you attend chur ch or anabaptism services? More than 4 times per year 12/19/2022 Do you belong to any clubs o r organizations such as lutheran groups, unions, fraternal or athletic groups, or school groups? Yes 12/19/2022 How often do you attend meet ings of the clubs or organizations you belong to? More than 4 times per year 12/19/2022 Are you , , di vorced, , never , or living with a partner? 12/19/2022 [facility] Questionnaire Answer Date [...] in a longterm (including now)? No 12/19/2022 Education Answer Date [...] Office Visit [facility] [address] [facility] 100 [place] [address] Hudson Lebron MD 112 [facility] 100 [place] [address] (Fax) 07/10/2026 11:30 AM EST Office Visit ZAHRAA BOLIVAR [address] [place] [address] José Luis Brennan MD [address] [place] [address] documented as of this encounter Visit Diagnoses Not on filedocumented in this encounter Care Teams Molder Machine Tender Relationship Specialty Start Date End Date Hudson Lebron MD [address] [facility] 100 [place] [address] (Fax) PCP - General 12/19/22 Hudson Lebron MD [address] [place] [address] PCP - ACO Reach 09/05/23 Gonsalo Stevens MD [address] [place] [address] Referring Physician Nephrology 11/17/23 Estella Gong DO [address] [place] [address] Referring Physician Neurology 08/11/24 Maribeth Powers NP [address] [place] [address] Nurse Practitioner Neurology 10/21/24 Cassi Wright, ISRA [address] [place] [address] Registered Nurse Family Medicine 01/11/25 documented as of this encounter
--- OUTSIDE RECORDS SUMMARY | 2025-03-14 21:29 | XMS_ITS | Encounter Summary ---
Author Organization [facility] Address [address] [facility], [place] [address] Care Team Providers Care Docking Pilot Name Role Phone Hudson Lebron MD Primary Care Provider [phone] Hudson Lebron MD Unavailable [phone] German Stevens Unavailable Estella Gong DO Unavailable [phone] Maribeth Powers NP Unavailable [phone] Cassi Wright RN Unavailable [phone] Encounter Details Date Type Department Care Team (Late st Contact Info) Description 02/17/2024 Orders Only [facility] [address] [place] [id number] Hudson Lebron MD [address] [place] [address] Mixed hyperlipidemia (Primary Dx) Social History Tobacco [...] week 12/30/2023 How often do you attend [facility] or [facility] services? More than 4 times per year 12/30/2023 Do you belong to any clubs o r organizations such as episcopal groups, unions, fraternal or athletic groups, or [...] of Binge Drinking Not on file 12/06 [facility] [place] [facility] Occupat ional [facility] - Occupational Stress [...] any time in the past 12 m [facility], were you homeless or living in [...] Medicine [address] [place] [address] Hudson Lebron MD [address] [address] [place] [address] (Fax) 07/10/2026 11:30 AM EST Office Visit [facility]AHR[facility] Burnett [facility] [address] [place] [phone] José Luis Brennan MD [address] [place] [address] documented as of this encounter Visit Diagnoses Diagnosis Mixed hyperlipidemia- Primary Mixed hyperlipidemia documented in this encounter Care Teams Docking Pilot Relationship Specialty Start Date End Date Hudson Lebron MD [address] [address] [place] [address] (Fax) PCP - General 12/19/22 Hudson Lebron MD [address] [address] [place] [address] (Fax) PCP - ACO Reach 09/05/23 Gonsalo Stevens MD [address] [address] [place] [address] Referring Physician Nephrology 11/17/23 Estella Gong DO [address] [place] [address] Referring Physician Neurology 08/11/24 Maribeth Powers NP [address] [place] [address] Nurse Practitioner Neurology 10/21/24 Cassi Wright, ISRA [address] [place] [address] Registered Nurse Family Medicine 01/11/25 documented as of this encounter
--- OUTSIDE RECORDS SUMMARY | 2025-03-14 21:30 | XMS_ITS | CCD ---
Author Organization [facility] Care Team Providers Care Manager [employer] Name Role Phone Juan Shirley W Unavailable Unavailable RiceJuan W Unavailable Unavailable Juan Shirley W Unavailable Unavailable HUDSON CASTAÑEDA Unavailable Unavailable Hudson Castañeda Primary Care Provider [phone] Sg Randall Attending Provider [phone] Kamari Virk Attending Provider You, Gonsalo Unavailable Jordan Gutierrez Unavailable MD Hudson Castañeda Primary Care Provider MD Kamari Virk Attending Provider Unavailabl MD José Luis Brown Referring Provider MD Jordan Gutierrez Attending Provider MD Hudson Castañeda Primary Care Provider [phone] MD Sg Randall Attending Provider DR TAMERA [...] Unavailable MD Hudson Castañeda Primary Care Provider [phone] MD Sg Randall Attending Provider [phone] CHANTEL Stafford Attending Provider MD José Luis Flores Attending Provider [phone] MD Hudson Castañeda Primary Care Provider [phone] MD Tamera Randall Attending Provider MD Hudson Castañeda Primary Care Provider MD Tamera Randall Attending Provider PRICILLA LOBATO Attending Unavailable HUDSON CASTAÑEDA Referring Unavailable HEMEABELARDO, HUDSON Sales Primary Care Unavailable DEB LÓPEZ Attending Unavailable HUDSON CASTAÑEDA Referring Unavailable HUDSON CASTAÑEDA Primary Care Unavailable MD Hudson Castañeda Primary Care Provider [phone] Self, Referral Attending Provider Unavailable Hudson Castañeda MD Primary Care Provider Hudson Castañeda MD Unavailable Gonsalo Stevens MD Unavailable MD Tamera Randall Attending Provider [phone] Hudson Castañeda MD Primary Care Provider [phone] Hudson Castañeda MD Unavailable [phone] PRICILLA LOBATO Referring Unavailable HEMEABELARDO, HUDSON Sales Primary Care Unavailable PRICILLA LOBATO Attending Unavailable PRICILLA LOBATO Referring Unavailable MADDY, HUDSON Sales Primary Care Unavailable DEB LÓPEZ Attending Unavailable DEB LÓPEZ Referring Unavailable MADDY, HUDSON Sales Primary Care Unavailable Hudson Castañeda MD Primary Care Provider [phone] Hudson Castañeda MD Unavailable Olive Gong DO Unavailable Hudson Castañeda MD Primary Care Provider [phone] Gonsalo Stevens MD Unavailable Maribeth Powers NP Unavailable Kyra Gomes APRN Attending Provider [phone] Gonsalo Stevens MD Unavailable NO FAMILY, PHYSICIAN Primary Care Provider Unava ilable Maddy DOMÍNGUEZ, Hudson Sales Primary Care Provider [phone] Kyra Gomes APRN Attending Provider [phone] Gonsalo Stevens MD Attending Provider [phone] Tamera Randall MD Attending Provider [phone] Maribeth Powers NP Unavailable Gene Lyn MD Attending Provider [phone] Maribeth Powers APRN Attending Provider NON STAFF Primary Care Provider Unavailred Wright RN, Cassi Unavailable OLIVE GONG Attending Unavailable OLIVE GONG Referring Unavailable MARIBETH POWERS Attending Unavailable OLIVE GONG Attending Unavailable HUDSON CASTAÑEDA Attending Unavailable HUDSON CASTAÑEDA Attending Unavailable HUDSON CASTAÑEDA Attending Unavailable HUDSON CASTAÑEDA Attending Unavailable HUDSON CASTAÑEDA Attending Unavailable MARIBETH POWERS Attending Unavailable JOSÉ LUIS FLORES Attending Unavailable NO FAMILY, PHYSICIAN Primary Care Provider Unava ilable Hudson Castañeda MD Primary Care Provider Self, Referral Attending Provider Unavailable Olive Gong DO Attending Provider [phone] Hudson Castañeda Primary Care Unavailable Self, Referral Attending Unavailable Self, Referral Admitting Unavailable Hudson Castañeda Primary Care Unavailable Tamera Randall Attending Unavailable Tamera Randall Admitting Unavailable Kyra Gomes Attending Unavailable Kyra Gomes Admitting Unavailable NO FAMILY, PHYSICIAN Primary Care Unavailable Gene Lyn Attending Unavailable Gene Lyn Admitting Unavailable Tamera Randall Admitting Unavailable Hudson Castañeda Primary Care Unavailable Tamera Randall Attending Unavailable Unavailable Unavailable Unavailable Allergies Allergy Classification Reported Allergen(s) Allergy Type Date of Onset Reaction(s) Facility (1 source) No Known Medication Allergies; Translations: [No Known Medication Allergies] Propensity to adverse reactions (disorder) [facility] Repository (10 sources) Ibuprofen Drug Allergy 11-26-19 due to kidneys [facility] (5 sources) NSAIDs Propensity to adverse reactions due to kidneys [facility] Other (4 sources) Pollen; Translations: [POLLEN EXTRACTS] Propensity to adverse reactions to drug (disorder) 02-10-20 [facility] Repository (20 sources) HMG-CoA reductase inhibitor Drug Intolerance 03-29-20 Other [facility] (20 sources) Pollen Propensity to adverse reactions 02-10-20 [facility] (20 sources) Rosuvastatin calcium Propensity to adverse reactions 03-29-20 [facility] Work Phone: (6 sources) NSAIDS (Non-Steroidal Anti-Inflamma; Translations: [NSAIDS (Non-Steroidal Anti-Inflamma] Allergy to substance 11-26-19 due to kidneys [facility] (1 source) Ibuprofen Drug Allergy 02-09-20 [facility] Repository Medications Current Medications Medication Drug Class(es) Dates Sig (Normalized) Sig (Original) amLODIPine 10 mg oral tablet (20 sources) Dihydropyridine Calcium Channel Ariela Start: 11-07-2024 take 1 tablet by mouth once daily Amlodipine 10 mg tablet Active 10 MG PO Daily November 07, 2024 12:04pm Complies with drug therapy Start: 10-28-2024 End: 11-07-2024 take 1 tablet [...] MG PO Daily November 13, 2023 11:56am Start: 02-14-2021 End: [...] take 1 tablet by mouth once daily Atorvastatin 20 mg Tablet Active 20 MG PO Daily January 31, 2022 12:00am Complies with drug therapy azelastine hydrochloride 0.137 mg/actuat metered dose nasal [...] tablet by mouth once daily as needed Cetirizine (Zyrtec) 10 mg tablet Active 10 MG PO Daily as needed November 13, 2023 12:00am Complies with drug therapy Start: 04-06-2023 Cetirizine HCl (ZYRTEC ALLERGY PO) 04/06/2023 Active cholecalciferol 0.05 mg oral capsule (20 sources) Vitamin D Start: 01-31-2022 take 1 capsule by mouth once daily Cholecalciferol (Vitamin D3) (Vitamin D3) 50 mcg (2,000 unit) Capsule Active 50 MCG PO Daily January 31, 2022 12:00am Complies with drug therapy cholecalciferol (Vitamin D-3) 100 MCG (4000 UT) [...] 05-06-2023 take 1 tablet by mouth once Colchicine 0.6 mg tablet Active 0.6 MG PO Once November 07, 2024 12:00am Complies with drug therapy cyclobenzaprine hydrochloride 10 mg oral tablet (20 sources) Muscle Relaxant Start: 11-25-2024 End: 01-10-2025 take 1 tablet by mouth once daily at bedtime as needed for muscle spasms Cyclobenzaprine 10 mg tablet Active 10 MG PO Daily at bedtime as needed for muscle spasm January 10, 2025 1:10pm Complies with drug therapy Start: 07-22-2024 End: 10-21-2024 take 0.5-1 tablets [...] MG PO Daily January 31, 2022 12:00am Complies with drug therapy estradiol 0.1 mg/ml vaginal cream (2 sources) Estrogen Start: 01-18-2025 End: 01-18-2026 estradiol (Estrace) 0.1 MG/GM vaginal cream Indications: Atrophic vaginitis Apply to vagina nightly for 1 week then every Friday/Friday/ Friday. 42.5 g 5 01/18/2025 01/18/2026 Active fluticasone propionate 0.05 mg/actuat metered dose nasal spray (20 sources) Corticosteroid Start: 01-11-2025 End: 07-10-2025 take 1 spray(s) nasal route once daily as needed for rhinitis fluticasone (Flonase) 50 MCG/ACT nasal spray Indications: Non-seasonal allergic rhinitis due to pollen Administer 1 spray into each nostril Daily as needed for rhinitis 48 g 01/11/2025 07/10/2025 Active Start: 12-23-2023 End: 06-20-2024 take 1 spray(s) nasal route once daily as needed for rhinitis fluticasone (Flonase) 50 MCG/ACT nasal spray Indications: Non-seasonal allergic rhinitis due to pollen Administer 1 spray into each nostril Daily as needed for rhinitis 48 g 12/23/2023 Active Start: 11-13-2023 Fluticasone Pr opionate 50 mcg/actuation blister with device Active 2 INH INHALATION Twice daily as needed November 13, 2023 12:00am Complies with drug therapy Start: 11-13-2023 Fluticasone Pr opionate Active 2 [...] by mouth three times daily as needed Gabapentin 100 mg capsule Active 100 MG PO Three times daily as needed November 13, 2023 11:02am Complies with drug therapy lidocaine 0.05 mg/mg medicated patch (20 sources) [...] (20 sources) Angiotensin 2 Receptor Ariela Start: 02-08-2025 take 1 tablet by mouth once daily Start: 02-04-2025 End: 02-08-2025 take 1 tablet by mouth once daily Losartan 100 mg tablet Discontinued 0 .ROUTE .COMPLEX February 04, 2025 8:13am February 08, 2025 5:04pm TAKE 1 TABLET BY MOUTH EVERY DAY Start: 11-07-2024 End: 02-04-2025 take 1 tablet by mouth once daily Losartan 100 mg tablet Discontinued 100 MG PO Daily November 07, 2024 12:05pm February 04, 2025 8:14am Start: 04-11-2024 End: 11-07-2024 take 1 tablet by mouth once daily Losartan 100 mg tablet Discontinued 0 .ROUTE .COMPLEX April 11, 2024 2:58pm November 07, 2024 12:07pm TAKE 1 TABLET BY MOUTH EVERY DAY Start: 04-11-2024 take 1 tablet by jenaro once daily Losartan Active 0 .ROUTE .COMPLEX April 11, 2024 2:58pm TAKE 1 TABLET BY MOUTH EVERY DAY Start: 01-31-2022 End: 04-11-2024 take 1 tablet by mouth once daily Losartan 100 mg tablet Discontinued 100 MG PO Daily November 13, 2023 11:56am April 11, 2024 2:58pm Start: 03-19-2018 take 4 tablets by mo [facility] in the morning losartan (COZAAR) 25 mg tablet Take 4 tablets (100 mg total) by mouth in the morning. 0 03/19/2018 Active lysine 1000 mg oral tablet (20 sources) Start: 01-31-2022 take 1 tablet by mouth once daily Lysine 1,000 mg Tablet Active 1000 MG PO Daily January 31, 2022 12:00am Complies with drug therapy Magnesium (20 sources) Start: 01-31-2022 take 2 tablets by mouth once daily Magnesium 250 mg Tablet Active 500 MG PO Daily January 31, 2022 12:00am Complies with drug therapy Start: 01-31-2022 take 2 tablets by [facility] once daily Start: 01-31-2022 take 2 tablets by [facility] once daily Magnesium 250 mg Tablet Active [...] oxide 500 mg oral tablet (20 sources) take 1 tablet by mouth at bedtime magnesium oxide 500 MG tablet Take 1 tablet by mouth at bedtime Active meclizine hydrochloride 25 mg oral tablet (2 sources) Antiemetic Start: 11-21-2017 take 1 tablet by mouth once daily as needed meclizine (ANTIVERT) 25 mg tablet TAKE 1 TABLET BY MOUTH ONCE A DAY NEEDED 0 11/21/2017 Active melatonin 3 mg oral capsule (12 sources) Start: 11-13-2023 take 1 capsule by mouth once daily at bedtime as needed Melatonin 3 mg capsule Active 3 MG PO Daily at bedtime as needed November 13, 2023 12:00am Complies with drug therapy Start: 11-13-2023 take 1 capsule by [facility] once daily at bedtime as needed Melatonin 3 mg capsule Active 3 MG PO Daily at bedtime as needed November 13, 2023 12:00am Melatonin + L-Theanine 3 mg (5 sources) take 1 tablet by [facility] once daily Melatonin + L-Theanine 3 mg [...] Daily January 31, 2022 12:00am Multivitamin Tablet (8 sources) Start: 01-31-2022 take 1 tablet by mouth once daily Multivitamin Tablet Active 1 TAB PO Daily January 31, 2022 12:00am Complies with drug therapy Start: 01-31-2022 take 1 tablet by jenaro th once daily Start: 01-31-2022 take 1 tablet by jenaro th once daily Multivitamin Tablet Active 1 TAB PO Daily January 31, 2022 12:00am naproxen 250 mg oral tablet (20 sources) Nonsteroidal Anti-inflammatory Drug take 1 tablet by mouth every twenty-four hours as needed for pain naproxen (Naprosyn) 250 MG tablet Take 250 mg by mouth Daily as needed for mild pain Active polyethylene glycol 3350 56978 mg powder for oral solution (20 sources) Osmotic Laxative polyethylene gl ycol, PEG, 3350 (MiraLax) 17 GM/SCOOP powder Take 17 g by mouth Daily Active potassium 99 mg extended release oral tablet (15 sources) Start: 2023 Potassium 99 mg tablet Active 99 MG PO 1 to 2 times per day November 13, 2023 12:00am Complies with drug therapy predniSONE 1 mg oral tablet (2 sources) take 1 tablet by mouth once daily at breakfast predniSONE (DELTASONE) 1 mg tablet Take 1 mg by mouth daily with breakfast. Active Probiotic Product (CULTURELLE PROBIOTICS PO) (20 sources) Start: 2022 Probiotic Product (CULTURELLE PROBIOTICS PO) 01/04/2023 Active psyllium 3400 mg powder for oral suspension (3 sources) take 3 g by mouth once daily as needed for constipation psyllium (Metamucil) 48.57 % powder Take 3 g of fiber by mouth Daily as needed (constipation) Active rosuvastatin calcium 5 mg oral tablet (6 sources) HMG-CoA Reductase Inhibitor Start: 2023 End: 2023 take 1 tablet by mouth in the evening rosuvastatin (Crestor) 5 MG tablet Indications: Mixed hyperlipidemia (CMS/HCC) Take 1 tablet (5 mg) by mouth in the evening 30 tablet 02/17/2024 03/29/2024 Discontinued (Side effects) sennosides, prison 8.6 mg oral tablet (20 sources) take 1 tablet by mouth once daily sennosides (Senokot) 8.6 MG tablet Take 1 tablet by mouth Daily Active Turmeric extract (12 sources) Start: 2023 take 1 capsule by mouth once daily Turmeric 400 mg capsule Active 400 MG PO daily November 13, 2023 12:00am Complies with drug therapy Start: 11-13-2023 take 1 capsule by mo uth once daily Start: 11-13-2023 take 1 capsule by mo uth once daily Turmeric 400 mg capsule Active 400 MG PO daily November 13, 2023 12:00am Start: 11-13-2023 take 400 mg by mouth once cortez y Turmeric Active 400 MG PO daily November 13, 2023 12:00am Vitamin D 2000 UNIT (5 sources) take 2 capsules by m outh once daily Vitamin D 2000 UNIT 2 capsules Orally Once a day Active Completed/Discontinued Medications Medication Drug Class(es) Dates [...] DAY Not-Taking ciprofloxacin 250 mg oral tablet (7 sources) Quinolone Antimicrobial Start: 11-08-19 End: 11-26-19 take 1 tablet by mouth every twelve hours Ciprofloxacin Hcl 250 mg tablet Discontinued 250 MG PO Every 12 hours 04 10November 07, 2024 12:00am November 25, 2024 11:34am fexofenadine hydrochloride 180 mg oral tablet (20 sources) Histamine-1 Receptor Antagonist Start: 01-09-20 End: 11-13-19 take 1 tablet by mouth once daily Fexofenadine (Sasha) 180 mg Tablet Discontinued 180 MG PO Daily January 31, 2022 12:00am November 13, 2023 11:02am krill oil (20 sources) Start: 02-01-20 End: 11-13-19 Xinqh-Py-4-Dha-Epa-Ph ospho-Ast (Krill Oil) 1,500-715-93-80 mg Capsule Discontinued 1 CAP PO Daily January 31, 2022 12:00am November 13, 2023 11:03am Start: 01-31-2022 Qsygw-Qe-1-Dha -Wpu-Pxrfrzi-Feq (Krill Oil) 1,138-928-44-80 mg Capsule Active 1 CAP PO Daily January 31, 2022 12:00am krill oil 500 mg capsule Take by mouth. Active lactobacillus rhamnosus gg [id number] unt oral capsule (12 sources) Start: 11-13-2023 End: 01-10-2025 take 1 capsule by mouth once daily Lactobacillus Rhamnosus Gg (Culturelle) 10 billion cell capsule Discontinued 1 CAP PO Daily November 13, 2023 12:00am January 10, 2025 12:49pm 1 ml methylPREDNISolone acetate 40 mg/ml injection [...] 1 each 04/22/2024 05/20/2024 Discontinued (Therapy completed) sulfamethoxazole 800 mg / trimethoprim 160 mg oral tablet (6 sources) Dihydrofolate Reductase Inhibitor Antibacterial, Sulfonamide Antimicrobial Start: 01-10-2025 End: 02-08-2025 Sulfamethoxazole-Trimeth oprim 800-160 mg tablet Discontinued TAB PO January 10, 2025 12:00am February 08, 2025 5:11pm Start: 01-09-2025 End: 01-18-2025 take 1 tablet by mouth once in the morning, then take 1 tablet by mouth once in the evening sulfamethoxazole-trimethoprim (Bactrim D S) 800-160 MG per tablet Take 1 tablet by mouth in the morning and 1 tablet in the evening. 01/09/2025 01/18/2025 Triamcinolone (10 sources) Corticosteroid Start: 05-24-2018 KENALOG - 10 m g May, 80 mg Start: 02-19-2018 KENALOG - 10 m g Feb, 80 mg zolpidem tartrate 10 mg oral tablet (20 sources) gamma-Aminobutyric Acid-ergic Agonist Start: 01-19-2018 End: 01-10-2025 take 1 tablet by mouth at bedtime as needed Zolpidem 10 mg tablet Discontinued 10 MG PO Bedtime as needed November 13, 2023 11:03am January 10, 2025 1:13pm Problems Active Problems Problem Classification Problem Date [...] Resolved: 2 Chronic Deficiency and other anemia (17 sources) Anemia; Translations: [Anemia, unspecified] 11-13-2023 Episodic [...] Resolved: 4 Chronic Fluid and electrolyte disorders (20 sources) Hypo-osmolality and hyponatremia; Translations: [Chronic hyponatremia] Onset: 2 Resolved: 2 Episodic Genitourinary symptoms and ill-defined conditions (20 sources) Urge incontinence of urine; Translations: [Urge incontinence] Onset: 3 12-19-2022 Chronic Hypertension with complications and secondary hypertension (20 sources) Renovascular hypertension; Translations: [Renovascular hypertension] Onset: 2 Resolved: 2 Chronic Menopausal disorders (2 sources) Atrophic vaginitis; Translations: [Postmenopausal atrophic vaginitis] 01-25-2025 Chronic Miscellaneous mental health disorders (15 sources) Primary insomnia; Translations: [Primary insomnia] 04-10-2024 [...] 12-19-2022 Chronic Other aftercare (1 source) Other shelter (current) drug therapy; Translations: [OTH [facility] CURRENT DRUG THERAPY] Onset: 3 Episodic Other aftercare (20 sources) Polypharmacy ; Translations: [Other director long term care (current) drug therapy] Onset: 1 12-23-2022 Episodic Other circulatory disease (2 sources) Stricture [...] Onset: 3 Resolved: 4 12-15-2023 Chronic Other nutritional; endocrine; and metabolic disorders (20 sources) Body mass index 25-29 - overweight; Translations: [Overweight] Onset: 4 12-31-2023 Episodic Other screening for suspected conditions (not mental disorders or infectious disease) (7 sources) Encounter for screening for malignant neoplasm of colon; Translations: [Encounter for screening for diabetes mellitus] Onset: 2 Resolved: 2 Episodic Other upper respiratory disease (20 sources) Allergic [...] of mental health and substance abuse codes (4 sources) Patient encounter status; Translations: [Encounter for screening examination for other mental health and behavioral disorders] 03-17-2024 Episodic Spondylosis; intervertebral disc disorders; other back problems (20 sources) Lumbar spondylosis; Translations: [Spondylosis without myelopathy or radiculopathy, lumbar region] Onset: 3 12-19-2022 Chronic Spondylosis; intervertebral disc disorders; other back problems (20 sources) Acute back pain with sciatica; Translations: [Lumbago with sciatica, right side] Onset: 8 Resolved: 4 11-28-2023 Episodic Unclassified (3 sources) CONTACT W/AND (SUSP) EXPOS COVID-19; Translations: [CONTACT W/AND (SUSP) EXPOS COVID-19] Onset: 2 Urinary tract infections (16 sources) Acute cystitis; Translations: [Acute cystitis with hematuria] 10-25-2024 Episodic Viral infection (2 sources) Disease caused by 2019-nCoV; Translations: [COVID-19] 01-25-2025 Episodic Past or Other Problems Problem Classification Problem Date Documented Da te Episodic/Chronic Abdominal pain (3 sources) Epigastric pain; Translations: [Epigastric pain] Onset: 11-03-2023 11-03-2023 Episodic Conditions associated with dizziness or vertigo (20 sources) Dizziness; Translations: [Dizziness and giddiness] Onset: 02-11-2018 Resolved: 12-15-2023 12-15-2023 Episodic Genitourinary symptoms and ill-defined conditions (3 sources) Increased frequency of urination; Translations: [Frequency of micturition] Onset: 11-07-2024 10-25-2024 Episodic Other acquired deformities (20 sources) Acquired unequal leg length; Translations: [Unequal limb length (acquired), unspecified site] Onset: 12-19-2022 12-19-2022 Episodic Other acquired deformities (20 sources) Retrolisthesis; Translations: [Spondylolisthesis , site unspecified] Onset: 12-19-2022 12-19-2022 Episodic Other acquired deformities (20 sources) Acquired spondylolisthesis; Translations: [Spondylolisthesis , site unspecified] Onset: 10-15-2017 12-23-2022 Episodic Other connective tissue disease (20 [...] Onset: 01-11-2019 Resolved: 12-15-2023 12-15-2023 Episodic Other upper respiratory disease (1 source) [...] Translations: [Insomnia, unspecified] Onset: 02-11-2018 11-10-2023 Episodic Unclassified (1 source) CONTACT W/AND (SUSP) EXPOS COVID-19; Translations: [CONTACT W/AND (SUSP) EXPOS COVID-19] Onset: 02-26-2022 Results Test Name Value Interpretation Reference Range Facility MM screening mammo BI w/CADo n 02-07-2025 MM screening mammo BI w/CAD [facility] [address] [place] [address] Mammography Report Signed Patient: Sari Abbasi MR#: [id number] : 1950 Acct:[id number] Age/Sex: 74 / F Adm Date: 02/07/25 Loc: [place] Room: Type: [facility] Attending Dr: Referral Self Ordering Provider: SELF,REFERRAL Date of Service: 02/07/25 Procedure(s): MM screening mammo BI w/CAD Accession Number(s): ([id number]) MM/MM screening mammo BI w/CAD: SCREENING Copies to: Hudson Castañeda MD SELF,REFERRAL CLINICAL DATA: Screening for malignancy. [...] Cole Jr, DO 02/07/25 1338 Signed By: 02/07/25 1339 Normal [facility] Mammography reportOrdered By : Michael Cole on 02-07-[address] [facility] [address] [place] [address] Mammography Report Signed Patient: Sari Abbasi MR#: [id number] : 1950 Acct:[id number] Age/Sex: 74 / F Adm Date: 5 Loc: [place] Room: Type: [facility] Attending Dr: Referral Self Ordering Provider: SELF,REFERRAL Date of Service: 02/07/25 Procedure(s): MM screening mammo BI w/CAD Accession Number(s): ([id number]) MM/MM screening mammo BI w/CAD: SCREENING Copies to: Hudson Castañeda MD SELF,REFERRAL ~ CLINICAL DATA: Screening for malignancy. SCREENING MAMMOGRAM - FULL FIELD DIGITAL WITH TOMOSYNTHESIS AND CAD COMPARISON:Mammograms dating back to 2020 Tomosynthesis craniocaudal and mediolateral oblique views of both breasts were obtained using low-dose digital technique. This examination was reviewed with [...] [facility] Dictated By: Michael Cole Jr DO 02/07/25 1338 Signed By: 02/07/25 1339 [facility] Urine Cultureon 01-08-2025 Bacteria identified Cx Nom (U) ORGANISM: Escherichia coli (O:ESCCOL) [place] Count >100,000 Aerobic SARAI Charge (NMIC56) ---- [...] RESISTANT TO ALL B-LACTAM DRUGS. PERFORMED BY: [address] [place] [address] PATHOLOGIST [employer]ER VALERIA GRACE M.D. Normal [facility] Comment on above: Performed By: #### C UU #### [address] Urine cultureOrdered By: Tripp Lyn on 01-08-2025 Bacteria identified Cx Nom (U) Escherichia coli Abnormal [facility] Alanine aminotransferase [En zymatic activity/volume] in Serum or PlasmaOrdered By: Tamera Randall on 01-03-2025 ALT [Catalytic activity/Vol] 19 U/L Normal 7-52 [facility] Comment on above: Performed By: #### C MP, CBC #### [address] Albumin [Mass/volume] in Ser um or Plasma by Bromocresol green (BCG) dye binding methoOrdered By: Tamera Randall on 01-03-2025 Albumin BCG dye [Mass/Vol] 4.5 g/dL 3.5-5.7 [facility] Alkaline phosphatase [Enzyma tic activity/volume] in Serum or PlasmaOrdered By: Tamera Randall on 01-03-2025 ALP [Catalytic activity/Vol] 88 U/L Normal 34-104 [facility] Comment on above: Result Comment: PERF ORMED BY: [place] [id number] PATHOLOGIST [employer] VALERIA GRACE M.D. Performed By: #### C MP, CBC #### [facility] [address] [place] [address] Aspartate aminotransferase [ Enzymatic activity/volume] in Serum or PlasmaOrdered By: Tamera Randall on 01-03-2025 AST [Catalytic activity/Vol] 21 U/L Normal 13-39 [facility] Comment on above: Performed By: #### C MP, CBC #### [address] Basophils [#/volume] in Bloo d by Automated countOrdered By: Tamera Randall on 01-03-2025 Basophils (Bld) [#/Vol] 0.0 10*3/uL Normal 0.0-0.2 [facility] Comment on above: Result Comment: PERF ORMED BY: [place] [id number] PATHOLOGIST [employer] VALERIA GRACE M.D. Performed By: #### C MP, CBC #### [address] Basophils/100 leukocytes in Blood by Automated countOrdered By: Tamera Randall on 01-03-2025 Basophils/100 WBC (Bld) 1.2 % Normal . [facility] Comment on above: Performed By: #### C MP, CBC #### [address] Bilirubin.total [Mass/volume ] in Serum or PlasmaOrdered By: Tamera Randall on 01-03-2025 Bilirubin [Mass/Vol] 0.6 mg/dL Normal 0.3-1.0 [facility] Comment on above: Performed By: #### C MP, CBC #### [place] [address] [place] Calcium [Mass/volume] in Ser um or PlasmaOrdered By: Tamera Randall on 01-03-2025 Calcium [Mass/Vol] 9.5 mg/dL Normal 8.6-10.3 [facility] Comment on above: Performed By: #### C MP, CBC #### [place] [address] [place] Carbon dioxide, total [Moles /volume] in Serum or PlasmaOrdered By: Tamera Randall on 01-03-2025 CO2 [Moles/Vol] 27.8 mmol/L Normal 21.0-31.0 [facility] Comment on above: Performed By: #### C MP, CBC #### [place] [address] [place] Chloride [Moles/volume] in S jl or PlasmaOrdered By: Tamera Randall on 01-03-2025 Chloride [Moles/Vol] 97 mmol/L Low 98-107 [facility] Comment on above: Performed By: #### C MP, CBC #### [address] Complete Blood Count Auto Di ffon 01-03-2025 Mean Corpuscular HGB Conc 34.4 g/dL Normal 32.0-35.0 [facility] Comment on above: Performed By: #### C MP, CBC #### [address] NRBC% 0.1 /100{WBC} Normal 0-0.5 [facility] Comment on above: Performed By: #### C MP, CBC #### [address] White Blood Count 3.9 [CFU]/mL Normal 3.8-11.[address] [facility] Comment on above: Performed By: #### C MP, CBC #### [address] Comprehensive Metabolic Pane canelo 01-03-2025 Albumin [Mass/Vol] 4.5 g/dL Normal 3.5-5.7 [facility] Comment on above: Performed By: #### C MP, CBC #### [place] [address] [place] GFR/1.73 sq M.predicted MDRD (S/P/Bld) [Vol rate/Area] mL/min/{1.73_m2} Normal [facility] Comment on above: Performed By: #### C MP, CBC #### [place] [address] [place] Creatinine [Mass/volume] in Serum or PlasmaOrdered By: Tamera Randall on 01-03-2025 Creatinine [Mass/Vol] 0.67 mg/dL Normal 0.60-1.20 [facility] Comment on above: Performed By: #### C MP, CBC #### [address] Eosinophils [#/volume] in Bl ood by Automated countOrdered By: Tamera Randall on 01-03-2025 Eosinophils (Bld) [#/Vol] 0.1 10*3/uL Normal 0.0-0.45 [facility] Comment on above: Performed By: #### C MP, CBC #### [place] [address] [place] Eosinophils/100 leukocytes i n Blood by Automated countOrdered By: Tamera Randall on 01-03-2025 Eosinophils/100 WBC (Bld) 3.8 % Normal . [facility] Comment on above: Performed By: #### C MP, CBC #### [address] Erythrocyte distribution wid th [Ratio] by Automated countOrdered By: Tamera Randall on 01-03-2025 Erythrocyte distribution width (RBC) [Ratio] 13.6 % Normal 11.9-15.3 [facility] Comment on above: Performed By: #### C MP, CBC #### [address] Erythrocytes [#/volume] in B lood by Automated countOrdered By: Tamera Randall on 01-03-2025 RBC (Bld) [#/Vol] 3.94 10*6/uL Normal 3.60-5.00 [facility] Comment on above: Performed By: #### C MP, CBC #### [address] Glucose [Mass/volume] in Ser um or PlasmaOrdered By: Tamera Randall on 01-03-2025 Glucose [Mass/Vol] 96 mg/dL Normal 70-100 [facility] Comment on above: ADA recommended refe rence rangeRandom Glucose Reference Range is dependent on time and content of last meal. Glucose of more than 200 mg/dL in a nonstressed, ambulatory subject supports the diagnosis of Diabetes Mellitus. Result Comment: Malin om Glucose Reference Range is dependent on time and content of last meal. Glucose of more than 200 mg/dL in a nonstressed, ambulatory subject supports the diagnosis of Diabetes Mellitus. ADA recommended reference range Performed By: #### C MP, CBC #### [place] [address] [place] Hematocrit [Volume Fraction] of Blood by Automated countOrdered By: Tamera Randall on 01-03-2025 Hematocrit (Bld) [Volume fraction] 34.8 % Normal 34.0-46.4 [facility] Comment on above: Performed By: #### C MP, CBC #### [address] Hemoglobin [Mass/volume] in BloodOrdered By: Tamera Suaerzrow on 01-03-2025 Hemoglobin (Bld) [Mass/Vol] 12.0 g/dL Normal 11.8-15.4 [facility] Comment on above: Performed By: #### C MP, CBC #### [address] Leukocytes [#/volume] correc taylor for nucleated erythrocytes in Blood by Automated counOrdered By: Tamera Suarezrow on 01-03-2025 WBC corrected for nucl RBC Auto (Bld) [#/Vol] 3.9 10*3/uL 3.8-11.6 [facility] Leukocytes [#/volume] in Blo od by Automated countOrdered By: Tamera Tonia on 01-03-2025 WBC (Bld) [#/Vol] 3.9 10*3/uL Normal 3.8-11.6 [facility] Comment on above: Performed By: #### C MP, CBC #### [address] Lymphocytes [#/volume] in Bl ood by Automated countOrdered By: Tamera Tonia on 01-03-2025 Lymphocytes (Bld) [#/Vol] 1.3 10*3/uL Normal 1.00-4.8 [facility] Comment on above: Performed By: #### C MP, CBC #### [place] [address] [place] Lymphocytes/100 leukocytes i n Blood by Automated countOrdered By: Tameraluke Randall on 01-03-2025 Lymphocytes/100 WBC (Bld) 32.3 % Normal . [facility] Comment on above: Performed By: #### C MP, CBC #### [place] [address] [place] MCH [Entitic mass] by Automa taylor countOrdered By: Tamera Suarezrow on 01-03-2025 MCH (RBC) [Entitic mass] 30.4 pg Normal 24.7-34.3 [facility] Comment on above: Performed By: #### C MP, CBC #### [address] MCHC Auto (RBC) [Mass/Vol]Or dered By: Tamera Tonia on 01-03-2025 MCHC (RBC) [Mass/Vol] 34.4 g/dL 32.0-35.0 [facility] MCV [Entitic volume] by Auto mated countOrdered By: Tamera Suarezrow on 01-03-2025 MCV (RBC) [Entitic vol] 88.2 fL Normal 80-100 [facility] Comment on above: Performed By: #### C MP, CBC #### [place] [address] [place] Monocytes [#/volume] in Bloo d by Automated countOrdered By: Tamera Randall on 01-03-2025 Monocytes (Bld) [#/Vol] 0.4 10*3/uL Normal 0.0-0.8 [facility] Comment on above: Performed By: #### C MP, CBC #### [place] [address] [place] Monocytes/100 leukocytes in Blood by Automated countOrdered By: Tamera Randall on 01-03-2025 Monocytes/100 WBC (Bld) 9.4 % Normal . [facility] Comment on above: Performed By: #### C MP, CBC #### [place] [address] [place] Neutrophils [#/volume] in Bl ood by Automated countOrdered By: Tamera Randall on 01-03-2025 Neutrophils (Bld) [#/Vol] 2.1 10*3/uL Normal 1.8-7.7 [facility] Comment on above: Performed By: #### C MP, CBC #### [facility] [address] [place] [address] [place] Neutrophils/100 leukocytes i n Blood by Automated countOrdered By: Tamera Tonia on 01-03-2025 Neutrophils/100 WBC (Bld) 53.3 % Normal . [facility] Comment on above: Performed By: #### C MP, CBC #### [facility] [address] No Panel InformationOrdered By: Tamera Randall on 01-03-2025 Estimated GFR (CKD-EPI) > 60.0 mL/Min [facility] Creatinine Clearance (Chem N/A [facility] Nucleated erythrocytes [Pres ence] in Blood by Automated countOrdered By: Tamera Randall on 01-03-2025 Nucleated RBC Auto Ql (Bld) 0.1 /100{WBC} 0-0.5 [facility] Platelet mean volume [Entiti c volume] in Blood by Automated countOrdered By: Tamera Randall on 01-03-2025 Platelet mean volume (Bld) [Entitic vol] 9.2 fL Normal 6.3-10.7 [facility] Comment on above: Performed By: #### C MP, CBC #### [facility] [address] [place] [address] [place] Platelets [#/volume] in Bloo d by Automated countOrdered By: Tamera Randall on 01-03-2025 Platelets (Bld) [#/Vol] 277 10*3/uL Normal 150-450 [facility] Comment on above: Performed By: #### C MP, CBC #### [facility] [address] [place] [address] [place] Potassium [Moles/volume] in Serum or PlasmaOrdered By: Tamera Randall on 01-03-2025 Potassium [Moles/Vol] 4.3 mmol/L Normal 3.5-5.1 [facility] Comment on above: Performed By: #### C MP, CBC #### [place] [address] [place] Protein [Mass/volume] in Ser um or PlasmaOrdered By: Tamera Randall on 01-03-2025 Protein [Mass/Vol] 7.3 g/dL Normal 6.4-8.9 [facility] Comment on above: Performed By: #### C MP, CBC #### [address] Serum globulin measurement b y calculation (mass/volume)Ordered By: Tamera Randall on 01-03-2025 Globulin (S) [Mass/Vol] 2.8 g/dL Normal [facility] Comment on above: Performed By: #### C MP, CBC #### [address] Serum or plasma albumin/glob ulin mass ratioOrdered By: Tamera Randall on 01-03-2025 Albumin/Globulin [Mass ratio] 1.6 {ratio} Normal [facility] Comment on above: Performed By: #### C MP, CBC #### [address] Serum or plasma anion gap de terminationOrdered By: Tamera Randall on 01-03-2025 Anion gap [Moles/Vol] 11.5 mmol/L Normal 6.0-15.0 [facility] Comment on above: Performed By: #### C MP, CBC #### [address] Sodium [Moles/volume] in Ser um or PlasmaOrdered By: Tamera Randall on 01-03-2025 Sodium [Moles/Vol] 132 mmol/L Low 136-145 [facility] Comment on above: Performed By: #### C MP, CBC #### [address] Urea nitrogen [Mass/volume] in Serum or PlasmaOrdered By: Tamera Randall on 01-03-2025 Urea nitrogen [Mass/Vol] 16 mg/dL Normal 7-25 [facility] Comment on above: Performed By: #### C MP, CBC #### [address] Erythrocyte distribution wid th Auto (RBC) [Ratio]on 11-15-2024 Erythrocyte distribution width (RBC) [Ratio] Erythrocyte distribution width [Ratio] by Automated count 11.0-15.0 [facility] Erythrocyte distribution width (RBC) [Ratio] 12.8 % 11.0-15.0 [facility] Estimated glomerular filtrat ion rate (GFR) non- Americanon 11-15-2024 GFR/1.73 sq M.predicted among non-blacks MDRD (S/P/Bld) [Vol rate/Area] Estimated glomerular filtration rate (GFR) non- >=60 mL/min/1.73m 2 [facility] GFR/1.73 sq M.predicted among non-blacks MDRD (S/P/Bld) [Vol rate/Area] mL/min/{1.73_m2} >=60 mL/min/1.73m 2 [facility] CBC WITH PLATELET NO DI FFERENTIALon 11-15-2024 Erythrocyte distribution width (RBC) [Ratio] 12.8 % 11.0 - 15.0 % [facility] Hematocrit (Bld) [Volume fraction] 33.9 % Low 36.0 - 48.0 % [facility] Hemoglobin (Bld) [Mass/Vol] 11.7 g/dL Low 12.0 - 16.0 g/dL [facility] Interpretation and review of laboratory results Abnormal [facility] MCH (RBC) [Entitic mass] 30.6 pg 26.7 - 34.0 pg [facility] MCHC (RBC) [Mass/Vol] 34.5 g/dL 29.9 - 35.2 g/dL [facility] MCV (RBC) [Entitic vol] 88.7 fL 81.0 - 99.0 fL [facility] Platelet mean volume (Bld) [Entitic vol] 9.9 fL 9.5 - 13.5 fL [facility] TB PLT [address] [facility] RBC 3.82 Low [facility] WBC 4.8 [facility] Hematocrit Auto (Bld) [Volum e fraction]on 11-15-2024 Hematocrit (Bld) [Volume fraction] Hematocrit [Volume Fraction] of Blood by Automated count Low 36.0-48.0 [facility] Hematocrit (Bld) [Volume fraction] 33.9 % Low 36.0-48.0 [facility] Hemoglobin [Mass/volume] in Bloodon 11-15-2024 Hemoglobin (Bld) [Mass/Vol] Hemoglobin [Mass/volume] in Blood Low 12.0-16.0 [facility] Hemoglobin (Bld) [Mass/Vol] 11.7 g/dL Low 12.0-16.0 [facility] Laboratory - Chemistry and C hemistry - challengeon 11-15-2024 Albumin [Mass/Vol] 3.8 g/dL 3.4-5.0 [facility] Calcium [Mass/Vol] 9.2 mg/dL 8.5-10.1 [facility] Chloride [Moles/Vol] 96 mmol/L Low 98-107 [facility] CO2 [Moles/Vol] 29.2 mmol/L 21.0-32.0 [facility] Creatinine [Mass/Vol] 0.70 mg/dL 0.55-1.02 [facility] GFR/1.73 sq M.predicted MDRD (S/P/Bld) [Vol rate/Area] mL/min/{1.73_m2} >=60 mL/min/1.73m 2 [facility] Glucose [Mass/Vol] 96 mg/dL 74-106 [facility] Magnesium [Mass/Vol] 2.1 mg/dL 1.8-2.4 [facility] Potassium [Moles/Vol] 4.2 mmol/L 3.5-5.1 [facility] Sodium [Moles/Vol] 133 mmol/L Low 136-145 [facility] Urea nitrogen [Mass/Vol] 13.0 mg/dL 7.0-18.0 [facility] Urea nitrogen/Creatinine [Mass ratio] 18.6 mg/mg [facility] Bilirubin Ql (U) Negative NEGATIVE [facility] Glucose (U) [Mass/Vol] Negative NEGATIVE [facility] Ketones Ql (U) Negative NEGATIVE [facility] pH (U) 7.0 [pH] 5.0-9.0 [facility] Specific gravity (U) [Rel density] <=1.005 Abnormal 1.005-1.025 [facility] Urobilinogen Qn (U) 0.2 {Ada'U}/dL 0.2-1.0 [facility] Laboratory - Specimen inform ationon 11-15-2024 Appearance (U) CLEAR CLEAR [facility] Color (U) LT. YELLOW YELLOW [facility] Laboratory - Urinalysison Leukocyte esterase Test strip Ql (U) Negative NEGATIVE [facility] Mucus Ql (Urine sed) NONE SEEN NONE SEEN [facility] Nitrite Ql (U) Negative NEGATIVE [facility] Protein (U) [Mass/Vol] 13.7 mg/dL High <=11.9 [facility] Ql (U) Negative NEG/TRACE [facility] Leukocytes [#/volume] correc taylor for nucleated erythrocytes in Blood by Automated counon 11-15-2024 WBC corrected for nucl RBC Auto (Bld) [#/Vol] Leukocytes [#/volume] corrected for nucleated erythrocytes in Blood by Automated coun 4.0-11.0 [facility] WBC corrected for nucl RBC Auto (Bld) [#/Vol] 4.8 10 3/uL 4.0-11.0 [facility] MCH Auto (RBC) [Entitic mass ]on 11-15-2024 MCH (RBC) [Entitic mass] MCH [Entitic mass] by Automated count 26.7-34.0 [facility] MCH (RBC) [Entitic mass] 30.6 pg 26.7-34.0 [facility] MCHC Auto (RBC) [Mass/Vol]on 11-15-2024 MCHC (RBC) [Mass/Vol] MCHC [Mass/volume] by Automated count 29.9-35.2 [facility] MCHC (RBC) [Mass/Vol] 34.5 g/dL 29.9-35.2 [facility] MCV Auto (RBC) [Entitic vol] on 11-15-2024 MCV (RBC) [Entitic vol] MCV [Entitic vol ume] by Automated count 81.0-99.0 [facility] MCV (RBC) [Entitic vol] 88.7 fL 81.0-99.0 [facility] No Panel Informationon 11-15 25-Hydroxy Vitamin D Total 47.0 ng/mL [facility] Comment on above: <20 ng/mL Vit D defi cient20-<30 ng/mL Vit D [id number] ng/mL Vit D sufficient>100 ng/mL Potential Toxicity Phosphorus Level 4.2 mg/dL 2.6-4.7 [facility] Urine Bacteria TRACE #/HPF Abnormal NONE SEEN [facility] Urine Occult Blood Negative NEGATIVE [facility] Urine Other Casts NONE SEEN #/LPF NONE SEEN [facility] Urine Other Crystals None Seen #/HPF None Seen [facility] Urine Random Creatinine <13.00 mg/dL Low 20.00-300. 00 [facility] Urine RBC 0-2 #/HPF 0-2 [facility] Urine Squamous Epithelial Cells RARE #/LPF NONE/RARE [facility] Urine WBC 0-2 #/HPF Abnormal NONE SEEN [facility] Platelet mean volume Auto (B ld) [Entitic vol]on 11-15-2024 Platelet mean volume (Bld) [Entitic vol] Platelet mean volume [Entitic volume] in Blood by Automated count 9.5-13.5 [facility] Platelet mean volume (Bld) [Entitic vol] 9.9 fL 9.5-13.5 [facility] Platelets Auto (Bld) [#/Vol] on 11-15-2024 Platelets (Bld) [#/Vol] Platelets [#/vol ume] in Blood by Automated count 150-450 [facility] Platelets (Bld) [#/Vol] 400 10 3/uL 150-450 [facility] RBC Auto (Bld) [#/Vol]on RBC (Bld) [#/Vol] Erythrocytes [#/volume] in Blood by Automated count Low 4.20-5.40 [facility] RBC (Bld) [#/Vol] 3.82 10 6/uL Low 4.20-5.40 [facility] Serum or plasma anion gap de terminationon 11-15-2024 Anion gap [Moles/Vol] Serum or plasma an ion gap determination [facility] Anion gap [Moles/Vol] 12.0 mmol/L [facility] Laboratory - Chemistry and C hemistry - challengeon 11-07-2024 Bilirubin Ql (U) Negative [facility] Glucose (U) [Mass/Vol] Negative [facility] Ketones Ql (U) Negative [facility] pH (U) 7.0 [pH] [facility] Specific gravity (U) [Rel density] 1.010 [facility] - Specimen inform ationon 11-07-2024 Appearance (U) clear [facility] Color (U) lightyellow [facility] Laboratory - Urinalysison Leukocyte esterase Test strip Ql (U) large [facility] Nitrite Ql (U) Negative [facility] Protein Ql (U) Negative [facility] No Panel Informationon 11-07 Urine Occult Blood trace-lysed [facility] Urine Urobilinogen 0.2EU/dL [facility] Urine Cultureon 11-07-2024 Bacteria identified Cx Nom (U) ORGANISM: Escherichia coli (O:ESCCOL) [place] Count 75,000 ORGANISM: Escherichia coli (O:ESCCOL) [place] Count >100,000 Aerobic SARAI Charge (NMIC56) ---- [...] RESISTANT TO ALL B-LACTAM DRUGS. PERFORMED BY: [place] [id number] PATHOLOGIST [employer] BÁRBARA LOGAN M.D. Normal [facility] Comment on above: Performed By: #### C UU #### [address] Urine cultureOrdered By: Liz Gomes on 11-07-2024 Bacteria identified Cx Nom (U) Escherichia coli Abnormal [facility] Bacteria identified Cx Nom (U) Escherichia coli Abnormal [facility] Bacteria identified Cx Nom (U) Escherichia coli#2 Abnormal [facility] Urinalysis macro (dipstick) panel (U)on 10-25-2024 Bilirubin, UA Negative Negative - 4(70) +++ mg/dL [facility] Blood, UA Positive Negative - 50 Joe/mcL [facility] Comment on above: 2+ Clarity, UA Cloudy [facility] Color, UA Yellow [facility] Glucose, UA Negative Negative - 1999(110) ++++ mg/dL [facility] Interpretation and review of laboratory results Abnormal [facility] Ketones, UA Positive Negative - 160(16) ++++ mg/dL [facility] Leukocytes, UA 2+ Negative - 500+++ Isa/mcL [facility] Nitrite, UA Negative Negative - Positive [facility] pH, UA 6 5 - 9 [facility] Protein, UA 1+ Negative - 1999(20) ++++ mg/dL [facility] Spec Grav, UA 1.005 1 - 1.03 [facility] Urobilinogen, UA 0.2 0.2 - 12 mg/dL [facility] No Panel Informationon 08-11 Olive Gong DO 08/11/2024 2:04 PM Trigger Point Injection: right [...] discussed. Consent was given by the patient. [facility] Alanine aminotransferase [En zymatic activity/volume] in Serum or PlasmaOrdered By: Tamera Randall on 04-23-2024 ALT [Catalytic activity/Vol] 16 U/L Normal 7-52 [facility] Comment on above: Performed By: #### E SR, CMP, CBC #### [facility] [address] [place] [address] Albumin [Mass/volume] in Ser um or Plasma by Bromocresol green (BCG) dye binding methoOrdered By: Tamera Randall on 04-23-2024 Albumin BCG dye [Mass/Vol] 4.4 g/dL 3.5-5.7 [facility] Alkaline phosphatase [Enzyma tic activity/volume] in Serum or PlasmaOrdered By: Tamera Suarezrow on 04-23-2024 ALP [Catalytic activity/Vol] 62 U/L Normal 34-104 [facility] Comment on above: Result Comment: PERF ORMED BY: [place] [id number] PATHOLOGIST [employer] ONIEL GAMA M.D. Performed By: #### E SR, CMP, CBC #### [address] Aspartate aminotransferase [ Enzymatic activity/volume] in Serum or PlasmaOrdered By: Tameraluke Randall on 04-23-2024 AST [Catalytic activity/Vol] 21 U/L Normal 13-39 [facility] Comment on above: Performed By: #### E SR, CMP, CBC #### [address] Automated basophil %Ordered By: Tamera Randall on 04-23-2024 Basophils/100 WBC (Bld) 1.4 % Normal . [facility] Comment on above: Performed By: #### E SR, CMP, CBC #### [address] Automated basophil countOrde red By: Tameraluke Randall on 04-23-2024 Basophils (Bld) [#/Vol] 0.1 10*3/uL Normal 0.0-0.2 [facility] Comment on above: Performed By: #### E SR, CMP, CBC #### [address] Automated blood monocyte cou ntOrdered By: Tameraluke Randall on 04-23-2024 Monocytes (Bld) [#/Vol] 0.6 10*3/uL Normal 0.0-0.8 [facility] Comment on above: Performed By: #### E SR, CMP, CBC #### [address] Automated eosinophil %Ordere d By: Tamera Randall on 04-23-2024 Eosinophils/100 WBC (Bld) 2.4 % Normal . [facility] Comment on above: Performed By: #### E SR, CMP, CBC #### [address] Automated eosinophil countOr dered By: Tamera Suarezrow on 04-23-2024 Eosinophils (Bld) [#/Vol] 0.1 10*3/uL Normal 0.0-0.45 [facility] Comment on above: Performed By: #### E SR, CMP, CBC #### [address] Automated monocyte %Ordered By: Tamera Tonia on 04-23-2024 Monocytes/100 WBC (Bld) 12.2 % Normal . [facility] Comment on above: Performed By: #### E SR, CMP, CBC #### [address] Automated neutrophil %Ordere d By: Tameraluke Randall on 04-23-2024 Neutrophils/100 WBC (Bld) 57.2 % Normal . [facility] Comment on above: Performed By: #### E SR, CMP, CBC #### [address] Bilirubin.total [Mass/volume ] in Serum or PlasmaOrdered By: Tameraluke Randall on 04-23-2024 Bilirubin [Mass/Vol] 0.8 mg/dL Normal 0.3-1.0 [facility] Comment on above: Performed By: #### E SR, CMP, CBC #### [address] Calcium [Mass/volume] in Ser um or PlasmaOrdered By: Tameraluke Randall on 04-23-2024 Calcium [Mass/Vol] 9.3 mg/dL Normal 8.6-10.3 [facility] Comment on above: Performed By: #### E SR, CMP, CBC #### [address] Carbon dioxide, total [Moles /volume] in Serum or PlasmaOrdered By: Tameraluke Randall on 04-23-2024 CO2 [Moles/Vol] 28.2 mmol/L Normal 21.0-31.0 [facility] Comment on above: Performed By: #### E SR, CMP, CBC #### [address] Chloride [Moles/volume] in S jl or PlasmaOrdered By: Tamera Randall on 04-23-2024 Chloride [Moles/Vol] 94 mmol/L Low 98-107 [facility] Comment on above: Performed By: #### E SR, CMP, CBC #### [address] Complete Blood Count Auto Di ffon 04-23-2024 Mean Corpuscular HGB Conc 34.5 g/dL Normal 32.0-35.0 [facility] Comment on above: Performed By: #### E SR, CMP, CBC #### [address] NRBC% 0.1 /100{WBC} Normal 0-0.5 [facility] Comment on above: Performed By: #### E SR, CMP, CBC #### [address] Comprehensive Metabolic Pane canelo 04-23-2024 Albumin [Mass/Vol] 4.4 g/dL Normal 3.5-5.7 [facility] Comment on above: Performed By: #### E SR, CMP, CBC #### [place] [address] [place] GFR/1.73 sq M.predicted MDRD (S/P/Bld) [Vol rate/Area] mL/min/{1.73_m2} Normal [facility] Comment on above: Performed By: #### E SR, CMP, CBC #### [facility] [address] [place] [address] [place] Creatinine [Mass/volume] in Serum or PlasmaOrdered By: Tamera Randall on 04-23-2024 Creatinine [Mass/Vol] 0.71 mg/dL Normal 0.60-1.20 [facility] Comment on above: Performed By: #### E SR, CMP, CBC #### [address] Erythrocyte Sedimentation Ra eulalio 04-23-2024 ESR (Bld) [Velocity] 22 mm/h Normal 0-29 [facility] Comment on above: Result Comment: PERF ORMED BY: [place] [id number] PATHOLOGIST [employer] ONEIL GAMA M.D. Performed By: #### E SR, CMP, CBC #### [address] Erythrocyte distribution wid th [Ratio] by Automated countOrdered By: Tamera Randall on 04-23-2024 Erythrocyte distribution width (RBC) [Ratio] 13.3 % Normal 11.9-15.3 [facility] Comment on above: Performed By: #### E SR CMP, CBC #### [address] Erythrocyte sedimentation ra te by Photometric methodOrdered By: Tamera Randall on 04-23-2024 ESR Photometric method (Bld) [Velocity] 22 mm/hr 0-29 [facility] Erythrocytes [#/volume] in B lood by Automated countOrdered By: Tamera Randall on 04-23-2024 RBC (Bld) [#/Vol] 3.99 10*6/uL Normal 3.60-5.00 [facility] Comment on above: Performed By: #### E RICKIE GRACE, CBC #### [address] Glucose [Mass/volume] in Ser um or PlasmaOrdered By: Tamera Randall on 04-23-2024 Glucose [Mass/Vol] 91 mg/dL Normal 70-100 [facility] Comment on above: ADA recommended refe rence rangeRandom Glucose Reference Range is dependent on time and content of last meal. Glucose of more than 200 mg/dL in a nonstressed, ambulatory subject supports the diagnosis of Diabetes Mellitus. Result Comment: Malin om Glucose Reference Range is dependent on time and content of last meal. Glucose of more than 200 mg/dL in a nonstressed, ambulatory subject supports the diagnosis of Diabetes Mellitus. ADA recommended reference range Performed By: #### E SR, CMP, CBC #### [address] Hematocrit [Volume Fraction] of Blood by Automated countOrdered By: Tamera Suarezrow on 04-23-2024 Hematocrit (Bld) [Volume fraction] 36.1 % Normal 34.0-46.4 [facility] Comment on above: Performed By: #### E SR, CMP, CBC #### [address] Hemoglobin [Mass/volume] in BloodOrdered By: Tamera Tonia on 04-23-2024 Hemoglobin (Bld) [Mass/Vol] 12.4 g/dL Normal 11.8-15.4 [facility] Comment on above: Performed By: #### E SR, CMP, CBC #### [address] Leukocytes [#/volume] correc taylor for nucleated erythrocytes in Blood by Automated counOrdered By: Tamera Suarezrow on 04-23-2024 WBC corrected for nucl RBC Auto (Bld) [#/Vol] 4.6 10*3/uL 3.8-11.6 [facility] Leukocytes [#/volume] in Blo od by Automated countOrdered By: Tamera Suarezrow on 04-23-2024 WBC (Bld) [#/Vol] 4.6 10*3/uL Normal 3.8-11.6 [facility] Comment on above: Performed By: #### E SR, CMP, CBC #### [place] [address] [place] Lymphocytes [#/volume] in Bl ood by Automated countOrdered By: Tameraluke Randall on 04-23-2024 Lymphocytes (Bld) [#/Vol] 1.2 10*3/uL Normal 1.00-4.8 [facility] Comment on above: Performed By: #### E SR, CMP, CBC #### [place] [address] [place] Lymphocytes/100 leukocytes i n Blood by Automated countOrdered By: Tamera Randall on 04-23-2024 Lymphocytes/100 WBC (Bld) 26.8 % Normal . [facility] Comment on above: Performed By: #### E SR, CMP, CBC #### [facility] [address] [place] [address] MCH [Entitic mass] by Automa taylor countOrdered By: Tamera Randall on 04-23-2024 MCH (RBC) [Entitic mass] 31.2 pg Normal 24.7-34.3 [facility] Comment on above: Performed By: #### E SR, CMP, CBC #### [address] MCHC Auto (RBC) [Mass/Vol]Or dered By: Tamera Randall on 04-23-2024 MCHC (RBC) [Mass/Vol] 34.5 g/dL 32.0-35.0 [facility] MCV [Entitic volume] by Auto mated countOrdered By: Tamera Randall on 04-23-2024 MCV (RBC) [Entitic vol] 90.6 fL Normal 80-100 [facility] Comment on above: Performed By: #### E SR, CMP, CBC #### [facility] [address] [place] [address] Neutrophils [#/volume] in Bl ood by Automated countOrdered By: Tamera Randall on 04-23-2024 Neutrophils (Bld) [#/Vol] 2.6 10*3/uL Normal 1.8-7.7 [facility] Comment on above: Performed By: #### E SR, CMP, CBC #### [facility] [address] [place] [address] No Panel InformationOrdered By: Tamera Randall on 04-23-2024 Estimated GFR (CKD-EPI) > 60.0 mL/Min [facility] Creatinine Clearance (Chem N/A [facility] Nucleated erythrocytes [Pres ence] in Blood by Automated countOrdered By: Tamera Randall on 04-23-2024 Nucleated RBC Auto Ql (Bld) 0.1 /100{WBC} 0-0.5 [facility] Platelet mean volume [Entiti c volume] in Blood by Automated countOrdered By: Tamera Randall on 04-23-2024 Platelet mean volume (Bld) [Entitic vol] 9.0 fL Normal 6.3-10.7 [facility] Comment on above: Performed By: #### E SR, CMP, CBC #### [facility] [address] Platelets [#/volume] in Bloo d by Automated countOrdered By: Tamera Randall on 04-23-2024 Platelets (Bld) [#/Vol] 299 10*3/uL Normal 150-450 [facility] Comment on above: Performed By: #### E SR, CMP, CBC #### [address] Potassium [Moles/volume] in Serum or PlasmaOrdered By: Tamera Randall on 04-23-2024 Potassium [Moles/Vol] 4.4 mmol/L Normal 3.5-5.1 [facility] Comment on above: Performed By: #### E SR, CMP, CBC #### [facility] [address] [place] [address] Protein [Mass/volume] in Ser um or PlasmaOrdered By: Tamera Randall on 04-23-2024 Protein [Mass/Vol] 7.2 g/dL Normal 6.4-8.9 [facility] Comment on above: Performed By: #### E SR, CMP, CBC #### [facility] [address] [place] [address] Serum globulin measurement b y calculation (mass/volume)Ordered By: Tamera Randall on 04-23-2024 Globulin (S) [Mass/Vol] 2.8 g/dL Normal [facility] Comment on above: Performed By: #### E SR, CMP, CBC #### [address] Serum or plasma albumin/glob ulin mass ratioOrdered By: Tamera Randall on 04-23-2024 Albumin/Globulin [Mass ratio] 1.6 {ratio} Normal [facility] Comment on above: Performed By: #### E SR CMP, CBC #### [facility] [address] [place] [address] Serum or plasma anion gap de terminationOrdered By: Tamera Randall on 04-23-2024 Anion gap [Moles/Vol] 12.2 mmol/L Normal 6.0-15.0 [facility] Comment on above: Performed By: #### E SR, CMP, CBC #### [facility] [address] [place] [address] Sodium [Moles/volume] in Ser um or PlasmaOrdered By: Tamera Randall on 04-23-2024 Sodium [Moles/Vol] 130 mmol/L Low 136-145 [facility] Comment on above: Performed By: #### E SR CMP, CBC #### [facility] [address] [place] [address] Urea nitrogen [Mass/volume] in Serum or PlasmaOrdered By: Tamera Randall on 04-23-2024 Urea nitrogen [Mass/Vol] 12 mg/dL Normal 7-25 [facility] Comment on above: Performed By: #### E RICKIE GRACE, CBC #### [facility] [address] [place] [address] Alanine aminotransferase [En zymatic activity/volume] in Serum or PlasmaOrdered By: Tamera Randall on 10-27-2023 ALT [Catalytic activity/Vol] 16 U/L 7-52 [facility] Albumin [Mass/volume] in Ser um or Plasma by Bromocresol green (BCG) dye binding methoOrdered By: Tamera Randall on 10-27-2023 Albumin BCG dye [Mass/Vol] 4.5 g/dL 3.5-5.7 [facility] Alkaline phosphatase [Enzyma tic activity/volume] in Serum or PlasmaOrdered By: Tamera Randlal on 10-27-2023 ALP [Catalytic activity/Vol] 62 U/L 34-104 [facility] Aspartate aminotransferase [ Enzymatic activity/volume] in Serum or PlasmaOrdered By: Tamera Randall on 10-27-2023 AST [Catalytic activity/Vol] 20 U/L 13-39 [facility] Basophils Auto (Bld) [#/Vol] Ordered By: Tamera Randall on 10-27-2023 Basophils (Bld) [#/Vol] 0.0 10*3/uL 0.0-0.2 [facility] Basophils/100 WBC Auto (Bld) Ordered By: Tamera Randall on 10-27-2023 Basophils/100 WBC (Bld) 0.7 % . [facility] Bilirubin.total [Mass/volume ] in Serum or PlasmaOrdered By: Tamera Randall on 10-27-2023 Bilirubin [Mass/Vol] 0.6 mg/dL 0.3-1.0 [facility] Calcium [Mass/volume] in Ser um or PlasmaOrdered By: Tamera Randall on 10-27-2023 Calcium [Mass/Vol] 9.5 mg/dL 8.6-10.3 [facility] Carbon dioxide, total [Moles /volume] in Serum or PlasmaOrdered By: Tamera Randall on 10-27-2023 CO2 [Moles/Vol] 25.7 mmol/L 21.0-31.0 [facility] Chloride [Moles/volume] in S jl or PlasmaOrdered By: Tamera Randall on 10-27-2023 Chloride [Moles/Vol] 98 mmol/L 98-107 [facility] Creatinine [Mass/volume] in Serum or PlasmaOrdered By: Tamera Randall on 10-27-2023 Creatinine [Mass/Vol] 0.69 mg/dL 0.60-1.20 [facility] Eosinophils Auto (Bld) [#/Vo l]Ordered By: Tamera Randall on 10-27-2023 Eosinophils (Bld) [#/Vol] 0.2 10*3/uL 0.0-0.45 [facility] Eosinophils/100 WBC Auto (Bl d)Ordered By: Tamera Randall on 10-27-2023 Eosinophils/100 WBC (Bld) 2.7 % . [facility] Erythrocyte distribution wid th Auto (RBC) [Ratio]Ordered By: Tamera Randall on 10-27-2023 Erythrocyte distribution width (RBC) [Ratio] 13.4 % 11.9-15.3 [facility] Erythrocyte sedimentation ra te by Photometric methodOrdered By: Tamera Randall on 10-27-2023 ESR Photometric method (Bld) [Velocity] 17 mm/hr 0-29 [facility] Ferritin [Mass/volume] in Se rum or PlasmaOrdered By: Gonsalo Stevens on 10-27-2023 Ferritin [Mass/Vol] 44.3 ng/mL 11.0-306.8 [facility] Folate [Mass/volume] in Seru m or PlasmaOrdered By: Gonsalo Stevens on 10-27-2023 Folate [Mass/Vol] 36.0 ng/mL >5.9 [facility] Comment on above: Folate reference ran ge: >5.9 ng/mlThe WHO technical consultation on folate and vitamin [id number] has determined that folate concentrations lessthan 4 ng/ml are considered deficient. Globulin Calc (S) [Mass/Vol] Ordered By: Tamera Randall on 10-27-2023 Globulin (S) [Mass/Vol] 2.6 g/dL F [facility] Glucose [Mass/volume] in Ser um or PlasmaOrdered By: Tamera Randall on 10-27-2023 Glucose [Mass/Vol] 96 mg/dL 70-100 [facility] Comment on above: ADA recommended refe rence rangeRandom Glucose Reference Range is dependent on time and content of last meal. Glucose of more than 200 mg/dL in a nonstressed, ambulatory subject supports the diagnosis of Diabetes Mellitus. Hematocrit Auto (Bld) [Volum e fraction]Ordered By: Tamera Randall on 10-27-2023 Hematocrit (Bld) [Volume fraction] 35.5 % 34.0-46.4 [facility] Hemoglobin [Mass/volume] in BloodOrdered By: Tamera Randall on 10-27-2023 Hemoglobin (Bld) [Mass/Vol] 11.9 g/dL 11.8-15.4 [facility] Iron [Mass/volume] in Serum or PlasmaOrdered By: Gonaslo Stevens on 10-27-2023 Iron [Mass/Vol] 93 ug/dL 50-212 [facility] Iron binding capacity [Mass/ volume] in Serum or PlasmaOrdered By: Gonsalo Stevens on 10-27-2023 Iron binding capacity [Mass/Vol] 372 ug/dL 255-450 [facility] Iron saturation [Mass Fracti on] in Serum or PlasmaOrdered By: Gonsalo Stevens on 10-27-2023 Iron saturation [Mass fraction] 25.0 % 20-50 [facility] Leukocytes [#/volume] correc taylor for nucleated erythrocytes in Blood by Automated counOrdered By: Tamera Randall on 10-27-2023 WBC corrected for nucl RBC Auto (Bld) [#/Vol] 6.1 10*3/uL 3.8-11.6 [facility] Lymphocytes Auto (Bld) [#/Vo l]Ordered By: Tamera Randall on 10-27-2023 Lymphocytes (Bld) [#/Vol] 1.3 10*3/uL 1.00-4.8 [facility] Lymphocytes/100 WBC Auto (Bl d)Ordered By: Tamera Randall on 10-27-2023 Lymphocytes/100 WBC (Bld) 20.9 % . [facility] MCH Auto (RBC) [Entitic mass ]Ordered By: Tamera Randall on 10-27-2023 MCH (RBC) [Entitic mass] 30.4 pg 24.7-34.3 [facility] MCHC Auto (RBC) [Mass/Vol]Or dered By: Tamera Randall on 10-27-2023 MCHC (RBC) [Mass/Vol] 33.6 g/dL 32.0-35.0 [facility] MCV Auto (RBC) [Entitic vol] Ordered By: Tamera Randall on 10-27-2023 MCV (RBC) [Entitic vol] 90.4 fL 80-100 [facility] Magnesium [Mass/volume] in S jl or PlasmaOrdered By: Gonsalo Stevens on 10-27-2023 Magnesium [Mass/Vol] 1.9 mg/dL 1.9-2.7 [facility] Monocytes Auto (Bld) [#/Vol] Ordered By: Tamera Randall on 10-27-2023 Monocytes (Bld) [#/Vol] 0.5 10*3/uL 0.0-0.8 [facility] Monocytes/100 WBC Auto (Bld) Ordered By: Tamera Randall on 10-27-2023 Monocytes/100 WBC (Bld) 7.5 % . [facility] Neutrophils Auto (Bld) [#/Vo l]Ordered By: Tamera Randall on 10-27-2023 Neutrophils (Bld) [#/Vol] 4.1 10*3/uL 1.8-7.7 [facility] Neutrophils/100 WBC Auto (Bl d)Ordered By: Tamera Randall on 10-27-2023 Neutrophils/100 WBC (Bld) 68.2 % . [facility] No Panel InformationOrdered By: Tamera Randall on 10-27-2023 Estimated GFR (CKD-EPI) > 60.0 mL/Min [facility] Creatinine Clearance (Chem N/A [facility] Nucleated erythrocytes [Pres ence] in Blood by Automated countOrdered By: Tamera Randall on 10-27-2023 Nucleated RBC Auto Ql (Bld) 0.1 /100{WBC} 0-0.5 [facility] Parathyrin.intact [Mass/volu me] in Serum or PlasmaOrdered By: Gonsalo Stevens on 10-27-2023 Parathyrin.intact [Mass/Vol] 29.8 pg/mL 12-88 [facility] Phosphate [Mass/volume] in S jl or PlasmaOrdered By: Gonsalo Stevens on 10-27-2023 Phosphate [Mass/Vol] 4.4 mg/dL 2.5-4.5 [facility] Platelet mean volume Auto (B ld) [Entitic vol]Ordered By: Tamera Randall on 10-27-2023 Platelet mean volume (Bld) [Entitic vol] 9.3 fL 6.3-10.7 [facility] Platelets Auto (Bld) [#/Vol] Ordered By: Tamera Randall on 10-27-2023 Platelets (Bld) [#/Vol] 275 10*3/uL 150-450 [facility] Potassium [Moles/volume] in Serum or PlasmaOrdered By: Tamera Randall on 10-27-2023 Potassium [Moles/Vol] 4.5 mmol/L 3.5-5.1 [facility] Protein [Mass/volume] in Ser um or PlasmaOrdered By: Tamera Randall on 10-27-2023 Protein [Mass/Vol] 7.1 g/dL 6.4-8.9 [facility] RBC Auto (Bld) [#/Vol]Ordere d By: Tamera Randall on 10-27-2023 RBC (Bld) [#/Vol] 3.93 10*6/uL 3.60-5.00 [facility] Serum or plasma albumin/glob ulin mass ratioOrdered By: Tamera Randall on 10-27-2023 Albumin/Globulin [Mass ratio] 1.7 {ratio} [facility] Serum or plasma anion gap de terminationOrdered By: Tamera Randall on 10-27-2023 Anion gap [Moles/Vol] 12.8 mmol/L 6.0-15.0 [facility] Sodium [Moles/volume] in Ser um or PlasmaOrdered By: Tamera Randall on 10-27-2023 Sodium [Moles/Vol] 132 mmol/L 136-145 [facility] Transferrin [Mass/volume] in Serum or PlasmaOrdered By: Gonsalo Stevens on 10-27-2023 Transferrin [Mass/Vol] 266 mg/dL 203-362 [facility] Urate [Mass/volume] in Serum or PlasmaOrdered By: Gonsalo Stevens on 10-27-2023 Urate [Mass/Vol] 2.9 mg/dL 2.3-6.6 [facility] Urea nitrogen [Mass/volume] in Serum or PlasmaOrdered By: Tamera Randall on 10-27-2023 Urea nitrogen [Mass/Vol] 21 mg/dL 7-25 [facility] Vitamin B12 ser/plasOrdered By: Gonsalo Stevens on 10-27-2023 Cobalamin (Vitamin B12) [Mass/Vol] 1280 pg/mL 180-914 [facility] Vitamin D+Metabolites [Mass/ volume] in Serum or PlasmaOrdered By: Gonsalo You on 10-27-2023 Vitamin D+Metabolites [Mass/Vol] 57.7 ng/mL 30-100 [facility] Comment on above: VITAMIN D STATUS 25( [place])VITAMIN D RANGE (ng/mL) Deficient <20 Insufficient 20 to <30Sufficient 30 to 100Reference: Gail COHN,Laly EAGLE, Magui ZAZUETA, et al. Evaluation,treatment, and prevention of vitamin D deficiency; an Endocrine Society clinical practice guideline. JCEM. 2010; 96(7):1911-30. WBC Auto (Bld) [#/Vol]Ordere d By: Tamera Randall on 10-27-2023 WBC (Bld) [#/Vol] 6.1 10*3/uL 3.8-11.6 [facility] Alanine aminotransferase [En zymatic activity/volume] in Serum or PlasmaOrdered By: Tamera Randall on 04-29-2023 ALT [Catalytic activity/Vol] 17 U/L 7-52 [facility] Albumin [Mass/volume] in Ser um or Plasma by Bromocresol green (BCG) dye binding methoOrdered By: Tamera Randall on 04-29-2023 Albumin BCG dye [Mass/Vol] 4.4 g/dL 3.5-5.7 [facility] Alkaline phosphatase [Enzyma tic activity/volume] in Serum or PlasmaOrdered By: Tamera Randall on 04-29-2023 ALP [Catalytic activity/Vol] 79 U/L 34-104 [facility] Aspartate aminotransferase [ Enzymatic activity/volume] in Serum or PlasmaOrdered By: Tamera Randall on 04-29-2023 AST [Catalytic activity/Vol] 20 U/L 13-39 [facility] Basophils Auto (Bld) [#/Vol] Ordered By: Tamera Randall on 04-29-2023 Basophils (Bld) [#/Vol] 0.0 10*3/uL 0.0-0.2 [facility] Basophils/100 WBC Auto (Bld) Ordered By: Tamera Randall on 04-29-2023 Basophils/100 WBC (Bld) 0.9 % . [facility] Bilirubin.total [Mass/volume ] in Serum or PlasmaOrdered By: Tamera Randall on 04-29-2023 Bilirubin [Mass/Vol] 0.8 mg/dL 0.3-1.0 [facility] Calcium [Mass/volume] in Ser um or PlasmaOrdered By: Tamera Randall on 04-29-2023 Calcium [Mass/Vol] 9.6 mg/dL 8.6-10.3 [facility] Carbon dioxide, total [Moles /volume] in Serum or PlasmaOrdered By: Tamera Randall on 04-29-2023 CO2 [Moles/Vol] 29.3 mmol/L 21.0-31.0 [facility] Chloride [Moles/volume] in S jl or PlasmaOrdered By: Tamera Randall on 04-29-2023 Chloride [Moles/Vol] 98 mmol/L 98-107 [facility] Creatinine [Mass/volume] in Serum or PlasmaOrdered By: Tamera Randall on 04-29-2023 Creatinine [Mass/Vol] 0.73 mg/dL 0.60-1.20 [facility] Eosinophils Auto (Bld) [#/Vo l]Ordered By: Tamera Randall on 04-29-2023 Eosinophils (Bld) [#/Vol] 0.2 10*3/uL 0.0-0.45 [facility] Eosinophils/100 WBC Auto (Bl d)Ordered By: Tamera Randall on 04-29-2023 Eosinophils/100 WBC (Bld) 4.2 % . [facility] Erythrocyte distribution wid th Auto (RBC) [Ratio]Ordered By: Tamera Randall on 04-29-2023 Erythrocyte distribution width (RBC) [Ratio] 13.3 % 11.9-15.3 [facility] Erythrocyte sedimentation ra te by Photometric methodOrdered By: Tamera Randall on 04-29-2023 ESR Photometric method (Bld) [Velocity] 17 mm/hr 0-29 [facility] Globulin Calc (S) [Mass/Vol] Ordered By: Tamera Randall on 04-29-2023 Globulin (S) [Mass/Vol] 2.7 g/dL F [facility] Glucose [Mass/volume] in Ser um or PlasmaOrdered By: Tamera Randall on 04-29-2023 Glucose [Mass/Vol] 83 mg/dL 70-100 [facility] Comment on above: ADA recommended refe rence rangeRandom Glucose Reference Range is dependent on time and content of last meal. Glucose of more than 200 mg/dL in a nonstressed, ambulatory subject supports the diagnosis of Diabetes Mellitus. Hematocrit Auto (Bld) [Volum e fraction]Ordered By: Tamera Randall on 04-29-2023 Hematocrit (Bld) [Volume fraction] 34.2 % 34.0-46.4 [facility] Hemoglobin [Mass/volume] in BloodOrdered By: Tamera Randall on 04-29-2023 Hemoglobin (Bld) [Mass/Vol] 11.5 g/dL 11.8-15.4 [facility] Leukocytes [#/volume] correc taylor for nucleated erythrocytes in Blood by Automated counOrdered By: Tamera Randall on 04-29-2023 WBC corrected for nucl RBC Auto (Bld) [#/Vol] 4.8 10*3/uL 3.8-11.6 [facility] Lymphocytes Auto (Bld) [#/Vo l]Ordered By: Tamera Randall on 04-29-2023 Lymphocytes (Bld) [#/Vol] 1.4 10*3/uL 1.00-4.8 [facility] Lymphocytes/100 WBC Auto (Bl d)Ordered By: Tamera Randall on 04-29-2023 Lymphocytes/100 WBC (Bld) 29.9 % . [facility] MCH Auto (RBC) [Entitic mass ]Ordered By: Tamera Randall on 04-29-2023 MCH (RBC) [Entitic mass] 30.3 pg 24.7-34.3 [facility] MCHC Auto (RBC) [Mass/Vol]Or dered By: Tamera Randall on 04-29-2023 MCHC (RBC) [Mass/Vol] 33.7 g/dL 32.0-35.[address] [facility] MCV Auto (RBC) [Entitic vol] Ordered By: Tamera Randall on 04-29-2023 MCV (RBC) [Entitic vol] 90.0 fL 80-100 [facility] Monocytes Auto (Bld) [#/Vol] Ordered By: Tamera Randall on 04-29-2023 Monocytes (Bld) [#/Vol] 0.4 10*3/uL 0.0-0.8 [facility] Monocytes/100 WBC Auto (Bld) Ordered By: Tamera Randall on 04-29-2023 Monocytes/100 WBC (Bld) 8.2 % . [facility] Neutrophils Auto (Bld) [#/Vo l]Ordered By: Tamera Randall on 04-29-2023 Neutrophils (Bld) [#/Vol] 2.7 10*3/uL 1.8-7.7 [facility] Neutrophils/100 WBC Auto (Bl d)Ordered By: Tamera Randall on 04-29-2023 Neutrophils/100 WBC (Bld) 56.8 % . [facility] No Panel InformationOrdered By: Tamera Randall on 04-29-2023 Estimated GFR (CKD-EPI) > 60.0 mL/Min [facility] Creatinine Clearance (Chem N/A [facility] Nucleated erythrocytes [Pres ence] in Blood by Automated countOrdered By: Tamera Randall on 04-29-2023 Nucleated RBC Auto Ql (Bld) 0.1 /100{WBC} 0-0.5 [facility] Platelet mean volume Auto (B ld) [Entitic vol]Ordered By: Tamera Randall on 04-29-2023 Platelet mean volume (Bld) [Entitic vol] 8.9 fL 6.3-10.7 [facility] Platelets Auto (Bld) [#/Vol] Ordered By: Tamera Randall on 04-29-2023 Platelets (Bld) [#/Vol] 276 10*3/uL 150-450 [facility] Potassium [Moles/volume] in Serum or PlasmaOrdered By: Tamera Randall on 04-29-2023 Potassium [Moles/Vol] 4.3 mmol/L 3.5-5.1 [facility] Protein [Mass/volume] in Ser um or PlasmaOrdered By: Tamera Randall on 04-29-2023 Protein [Mass/Vol] 7.1 g/dL 6.4-8.9 [facility] RBC Auto (Bld) [#/Vol]Ordere d By: Tamera Randall on 04-29-2023 RBC (Bld) [#/Vol] 3.80 10*6/uL 3.60-5.00 [facility] Serum or plasma albumin/glob ulin mass ratioOrdered By: Tamera Randall on 04-29-2023 Albumin/Globulin [Mass ratio] 1.6 {ratio} [facility] Serum or plasma anion gap de terminationOrdered By: Tamera Randall on 04-29-2023 Anion gap [Moles/Vol] 9.0 mmol/L 6.0-15.0 [facility] Sodium [Moles/volume] in Ser um or PlasmaOrdered By: Tamera Randall on 04-29-2023 Sodium [Moles/Vol] 132 mmol/L 136-145 [facility] Urea nitrogen [Mass/volume] in Serum or PlasmaOrdered By: Tamera Randall on 04-29-2023 Urea nitrogen [Mass/Vol] 18 mg/dL 7-25 [facility] WBC Auto (Bld) [#/Vol]Ordere d By: Tamera Randall on 04-29-2023 WBC (Bld) [#/Vol] 4.8 10*3/uL 3.8-11.6 [facility] Alanine aminotransferase [En zymatic activity/volume] in Serum or PlasmaOrdered By: Tamera Randall on 10-25-2022 ALT [Catalytic activity/Vol] 16 U/L 7-52 [facility] Albumin [Mass/volume] in Ser um or Plasma by Bromocresol green (BCG) dye binding methoOrdered By: Tamera Randall on 10-25-2022 Albumin BCG dye [Mass/Vol] 4.4 g/dL 3.5-5.7 [facility] Alkaline phosphatase [Enzyma tic activity/volume] in Serum or PlasmaOrdered By: Tamera Randall on 10-25-2022 ALP [Catalytic activity/Vol] 72 U/L 34-104 [facility] Aspartate aminotransferase [ Enzymatic activity/volume] in Serum or PlasmaOrdered By: Tamera Randall on 10-25-2022 AST [Catalytic activity/Vol] 21 U/L 13-39 [facility] Basophils Auto (Bld) [#/Vol] Ordered By: Tamera Randall on 10-25-2022 Basophils (Bld) [#/Vol] 0.0 10*3/uL 0.0-0.2 [facility] Basophils/100 WBC Auto (Bld) Ordered By: Tamera Randall on 10-25-2022 Basophils/100 WBC (Bld) 0.7 % . [facility] Bilirubin.total [Mass/volume ] in Serum or PlasmaOrdered By: Tamera Randall on 10-25-2022 Bilirubin [Mass/Vol] 0.7 mg/dL 0.3-1.0 [facility] Calcium [Mass/volume] in Ser um or PlasmaOrdered By: Tamera Randall on 10-25-2022 Calcium [Mass/Vol] 9.2 mg/dL 8.6-10.3 [facility] Carbon dioxide, total [Moles /volume] in Serum or PlasmaOrdered By: Tamera Randall on 10-25-2022 CO2 [Moles/Vol] 27.0 mmol/L 21.0-31.0 [facility] Chloride [Moles/volume] in S jl or PlasmaOrdered By: Tamera Randall on 10-25-2022 Chloride [Moles/Vol] 98 mmol/L 98-107 [facility] Creatinine [Mass/volume] in Serum or PlasmaOrdered By: Tamera Randall on 10-25-2022 Creatinine [Mass/Vol] 0.70 mg/dL 0.60-1.20 [facility] Eosinophils Auto (Bld) [#/Vo l]Ordered By: Tamera Randall on 10-25-2022 Eosinophils (Bld) [#/Vol] 0.2 10*3/uL 0.0-0.45 [facility] Eosinophils/100 WBC Auto (Bl d)Ordered By: Tamera Randall on 10-25-2022 Eosinophils/100 WBC (Bld) 3.2 % . [facility] Erythrocyte distribution wid th Auto (RBC) [Ratio]Ordered By: Tamera Randall on 10-25-2022 Erythrocyte distribution width (RBC) [Ratio] 13.5 % 11.9-15.3 [facility] Erythrocyte sedimentation ra te by Photometric methodOrdered By: Tamera Randall on 10-25-2022 ESR Photometric method (Bld) [Velocity] 23 mm/hr 0-29 [facility] Globulin Calc (S) [Mass/Vol] Ordered By: Tamera Randall on 10-25-2022 Globulin (S) [Mass/Vol] 2.5 g/dL [facility] [facility] Glucose [Mass/volume] in Ser um or PlasmaOrdered By: Tamera Randall on 10-25-2022 Glucose [Mass/Vol] 86 mg/dL 70-100 [facility] Comment on above: ADA recommended refe rence rangeRandom Glucose Reference Range is dependent on time and content of last meal. Glucose of more than 200 mg/dL in a nonstressed, ambulatory subject supports the diagnosis of Diabetes Mellitus. Hematocrit Auto (Bld) [Volum e fraction]Ordered By: Tamera Randall on 10-25-2022 Hematocrit (Bld) [Volume fraction] 35.7 % 34.0-46.4 [facility] Hemoglobin [Mass/volume] in BloodOrdered By: Tamera Randall on 10-25-2022 Hemoglobin (Bld) [Mass/Vol] 12.1 g/dL 11.8-15.4 [facility] Leukocytes [#/volume] correc taylor for nucleated erythrocytes in Blood by Automated counOrdered By: Tamera Randall on 10-25-2022 WBC corrected for nucl RBC Auto (Bld) [#/Vol] 4.9 10*3/uL 3.8-11.6 [facility] Lymphocytes Auto (Bld) [#/Vo l]Ordered By: Tamera Randall on 10-25-2022 Lymphocytes (Bld) [#/Vol] 1.4 10*3/uL 1.00-4.8 [facility] Lymphocytes/100 WBC Auto (Bl d)Ordered By: Tamera Randall on 10-25-2022 Lymphocytes/100 WBC (Bld) 28.5 % . [facility] MCH Auto (RBC) [Entitic mass ]Ordered By: Tamera Randall on 10-25-2022 MCH (RBC) [Entitic mass] 30.4 pg 24.7-34.3 [facility] MCHC Auto (RBC) [Mass/Vol]Or dered By: Tamera Randall on 10-25-2022 MCHC (RBC) [Mass/Vol] 33.9 g/dL 32.0-35.0 [facility] MCV Auto (RBC) [Entitic vol] Ordered By: Tamera Randall on 10-25-2022 MCV (RBC) [Entitic vol] 89.6 fL 80-100 [facility] Monocytes Auto (Bld) [#/Vol] Ordered By: Tamera Randall on 10-25-2022 Monocytes (Bld) [#/Vol] 0.4 10*3/uL 0.0-0.8 [facility] Monocytes/100 WBC Auto (Bld) Ordered By: Tamera Randall on 10-25-2022 Monocytes/100 WBC (Bld) 8.7 % . [facility] Neutrophils Auto (Bld) [#/Vo l]Ordered By: Tamera Randall on 10-25-2022 Neutrophils (Bld) [#/Vol] 2.9 10*3/uL 1.8-7.7 [facility] Neutrophils/100 WBC Auto (Bl d)Ordered By: Tamera Randall on 10-25-2022 Neutrophils/100 WBC (Bld) 58.9 % . [facility] No Panel InformationOrdered By: Tamera Randall on 10-25-2022 Estimated GFR (CKD-EPI) > 60.0 mL/Min [facility] Creatinine Clearance (Chem N/A [facility] Nucleated erythrocytes [Pres ence] in Blood by Automated countOrdered By: Tamera Randall on 10-25-2022 Nucleated RBC Auto Ql (Bld) 0.2 /100{WBC} 0-0.5 [facility] Platelet mean volume Auto (B ld) [Entitic vol]Ordered By: Tamera Randall on 10-25-2022 Platelet mean volume (Bld) [Entitic vol] 8.6 fL 6.3-10.7 [facility] Platelets Auto (Bld) [#/Vol] Ordered By: Tamera Randall on 10-25-2022 Platelets (Bld) [#/Vol] 266 10*3/uL 150-450 [facility] Potassium [Moles/volume] in Serum or PlasmaOrdered By: Tamera Randall on 10-25-2022 Potassium [Moles/Vol] 4.1 mmol/L 3.5-5.1 [facility] Protein [Mass/volume] in Ser um or PlasmaOrdered By: Tamera Randall on 10-25-2022 Protein [Mass/Vol] 6.9 g/dL 6.4-8.9 [facility] RBC Auto (Bld) [#/Vol]Ordere d By: Tamera Randall on 10-25-2022 RBC (Bld) [#/Vol] 3.99 10*6/uL 3.60-5.00 [facility] Serum or plasma albumin/glob ulin mass ratioOrdered By: Tamera Randall on 10-25-2022 Albumin/Globulin [Mass ratio] 1.8 {ratio} [facility] Serum or plasma anion gap de terminationOrdered By: Tamera Randall on 10-25-2022 Anion gap [Moles/Vol] 12.1 mmol/L 6.0-15.0 [facility] Sodium [Moles/volume] in Ser um or PlasmaOrdered By: Tamera Randall on 10-25-2022 Sodium [Moles/Vol] 133 mmol/L 136-145 [facility] Urea nitrogen [Mass/volume] in Serum or PlasmaOrdered By: Tamera Randall on 10-25-2022 Urea nitrogen [Mass/Vol] 15 mg/dL 7-25 [facility] WBC Auto (Bld) [#/Vol]Ordere d By: Tamera Randall on 10-25-2022 WBC (Bld) [#/Vol] 4.9 10*3/uL 3.8-11.6 [facility] XR Knee Complete Right*on XR Knee Complete Right* HISTORY: Posteri or knee pain with redness and swelling. COMPARISON: Radiograph 01/21/2019 TECHNIQUE: AP, lateral, and oblique views. FINDINGS: No acute fracture or dislocation. Joint spaces are maintained. Small joint effusion. Soft tissues are within normal limits. IMPRESSION: No acute osseous abnormality. Report reported and signed by Juan Wan on 07/19/2022 1225 Normal [employer] VITAMIN D 25 OHon 07-15-2022 VIT D 25-OH 55.7 ng/mL Normal [facility] Comment on above: Performed By: #### V ITAD #### [facility] [address], [place] [address] Dr. Aniceto Elizondo VIT D RANGES SEE BELOW Normal [facility] Comment on above: Result Comment: <20 ng/mL Vit D deficient 20 - <30 ng/mL Vit D insufficient 30 - 100 ng/mL Vit D sufficient >100 ng/mL Potential Toxicity Performed By: #### V ITAD #### [facility] [address] [place], [place] [address] Dr. Aniceto Elizondo Albumin [Mass/volume] in Ser um or PlasmaOrdered By: Tamera Randall on 04-25-2022 Albumin [Mass/Vol] 4.0 g/dL 3.2-5.5 [facility] Basophils Auto (Bld) [#/Vol] Ordered By: Tamera Randall on 04-25-2022 Basophils (Bld) [#/Vol] 0.1 10*3/uL 0.0-0.2 [facility] Basophils/100 WBC Auto (Bld) Ordered By: Tamera Randall on 04-25-2022 Basophils/100 WBC (Bld) 1.1 % . [facility] Creatinine and Glomerular fi ltration rate.predicted panel (S/P/Bld)Ordered By: Tamera Randall on 04-25-2022 Creatinine [Mass/Vol] 0.64 mg/dL 0.44-1.03 [facility] Eosinophils Auto (Bld) [#/Vo l]Ordered By: Tamera Randall on 04-25-2022 Eosinophils (Bld) [#/Vol] 0.2 10*3/uL 0.0-0.45 [facility] Eosinophils/100 WBC Auto (Bl d)Ordered By: Tamera Randall on 04-25-2022 Eosinophils/100 WBC (Bld) 2.9 % . [facility] Erythrocyte distribution wid th Auto (RBC) [Ratio]Ordered By: Tamera Randall on 04-25-2022 Erythrocyte distribution width (RBC) [Ratio] 13.6 % 11.9-15.3 [facility] Erythrocyte sedimentation ra te by Photometric methodOrdered By: Tamera Randall on 04-25-2022 ESR Photometric method (Bld) [Velocity] 21 mm/hr 0-29 [facility] Estimated glomerular filtrat ion rate (GFR) non- AmericanOrdered By: Tamera Randall on 04-25-2022 GFR/1.73 sq M.predicted among non-blacks MDRD (S/P/Bld) [Vol rate/Area] > 60 mL/Min [facility] Globulin Calc (S) [Mass/Vol] Ordered By: Tamera Randall on 04-25-2022 Globulin (S) [Mass/Vol] 2.7 g/dL [facility] Hematocrit Auto (Bld) [Volum e fraction]Ordered By: Tamera Randall on 04-25-2022 Hematocrit (Bld) [Volume fraction] 35.1 % 34.0-46.4 [facility] Hemoglobin [Mass/volume] in BloodOrdered By: Tamera Randall on 04-25-2022 Hemoglobin (Bld) [Mass/Vol] 11.9 g/dL 11.8-15.4 [facility] - Hematology and Cell countsOrdered By: Tamera Randall on 04-25-2022 Nucleated RBC/100 WBC (Bld) [Ratio] 0.1 % 0-0.5 [facility] Leukocytes [#/volume] in Blo od by Automated countOrdered By: Tamera Randall on 04-25-2022 WBC (Bld) [#/Vol] 5.6 10*3/uL 4.5-11.0 [facility] Lymphocytes Auto (Bld) [#/Vo l]Ordered By: Tamera Randall on 04-25-2022 Lymphocytes (Bld) [#/Vol] 1.7 10*3/uL 1.00-4.8 [facility] Lymphocytes/100 WBC Auto (Bl d)Ordered By: Tamera Randall on 04-25-2022 Lymphocytes/100 WBC (Bld) 29.8 % . [facility] MCH Auto (RBC) [Entitic mass ]Ordered By: Tamera Randall on 04-25-2022 MCH (RBC) [Entitic mass] 30.7 pg 24.7-34.3 [facility] MCHC Auto (RBC) [Mass/Vol]Or dered By: Tamera Randall on 04-25-2022 MCHC (RBC) [Mass/Vol] 33.9 g/dL 32.0-35.0 [facility] MCV Auto (RBC) [Entitic vol] Ordered By: Tamera Randall on 04-25-2022 MCV (RBC) [Entitic vol] 90.6 fL 80-100 [facility] Monocytes Auto (Bld) [#/Vol] Ordered By: Tamera Randall on 04-25-2022 Monocytes (Bld) [#/Vol] 0.5 10*3/uL 0.0-0.8 [facility] Monocytes/100 WBC Auto (Bld) Ordered By: Tamera Randall on 04-25-2022 Monocytes/100 WBC (Bld) 8.4 % . [facility] Neutrophils Auto (Bld) [#/Vo l]Ordered By: Tamera Randall on 04-25-2022 Neutrophils (Bld) [#/Vol] 3.2 10*3/uL 1.8-7.7 [facility] Neutrophils/100 WBC Auto (Bl d)Ordered By: Tamera Randall on 04-25-2022 Neutrophils/100 WBC (Bld) 57.8 % . [facility] No Panel InformationOrdered By: Tamera Randall on 04-25-2022 Estimated GFR () > 60 mL/Min [facility] Comment on above: GFR estimated refere nce range: According to KDOQI guidelines, <60 ml/min/1.73m2 is sufficient to diagnose a patient with chronic kidney disease. Pharmacy Creatinine Clearance (Chem N/A [facility] Platelet mean volume Auto (B ld) [Entitic vol]Ordered By: Tamera Randall on 04-25-2022 Platelet mean volume (Bld) [Entitic vol] 8.7 fL 6.3-10.7 [facility] Platelets Auto (Bld) [#/Vol] Ordered By: Tamera Randall on 04-25-2022 Platelets (Bld) [#/Vol] 353 10*3/uL 150-450 [facility] Protein [Mass/volume] in Ser um or PlasmaOrdered By: Tamera Randall on 04-25-2022 Protein [Mass/Vol] 6.7 g/dL 6.1-7.9 [facility] RBC Auto (Bld) [#/Vol]Ordere d By: Tamera Randall on 04-25-2022 RBC (Bld) [#/Vol] 3.87 10*6/uL 3.60-5.00 [facility] Serum or plasma alanine craig otransferase measurement without P-5'-P (enzymatic activiOrdered By: Tamera Randall on 04-25-2022 ALT No additional P-5'-P [Catalytic activity/Vol] 23 U/L 60 [facility] Serum or plasma albumin/glob ulin mass ratioOrdered By: Tamera Randall on 04-25-2022 Albumin/Globulin [Mass ratio] 1.5 {ratio} [facility] Serum or plasma alkaline lakisha sphatase measurement (enzymatic activity/volume)Ordered By: Tamera Randall on 04-25-2022 ALP [Catalytic activity/Vol] 72 U/L 32-92 [facility] Serum or plasma anion gap de terminationOrdered By: Tamera Randall on 04-25-2022 Anion gap [Moles/Vol] 14.0 mmol/L 6.0-15.0 [facility] Serum or plasma aspartate am inotransferase measurement (enzymatic activity/volume)Ordered By: Tamera Randall on 04-25-2022 AST [Catalytic activity/Vol] 26 U/L 1042 [facility] Serum or plasma calcium yvonne urement (mass/volume)Ordered By: Tamera Randall on 04-25-2022 Calcium [Mass/Vol] 9.8 mg/dL 8.2-10.2 [facility] Serum or plasma chloride elpidio surement (moles/volume)Ordered By: Tamera Randall on 04-25-2022 Chloride [Moles/Vol] 95 mmol/L 95-114 [facility] Serum or plasma glucose yvonne urement (mass/volume)Ordered By: Tamera Randall on 04-25-2022 Glucose [Mass/Vol] 92 mg/dL 70-100 [facility] Comment on above: ADA recommended refe rence rangeRandom Glucose Reference Range is dependent on time and content of last meal. Glucose of more than 200 mg/dL in a nonstressed, ambulatory subject supports the diagnosis of Diabetes Mellitus. Serum or plasma potassium me asurement (moles/volume)Ordered By: Tamera Randall on 04-25-2022 Potassium [Moles/Vol] 4.6 mmol/L 3.5-5.1 [facility] Serum or plasma sodium measu rement (moles/volume)Ordered By: Tamera Randall on 04-25-2022 Sodium [Moles/Vol] 130 mmol/L 136-146 [facility] Serum or plasma total biliru bin measurement (mass/volume)Ordered By: Tamera Randall on 04-25-2022 Bilirubin [Mass/Vol] 0.7 mg/dL 0.3-1.2 [facility] Serum or plasma total carbon dioxide measurement (moles/volume)Ordered By: Tamera Randall on 04-25-2022 CO2 [Moles/Vol] 25.6 mmol/L 22.0-30.0 [facility] Serum or plasma urea nitroge n measurement (mass/volume)Ordered By: Tamera Randall on 04-25-2022 Urea nitrogen [Mass/Vol] 13 mg/dL - [facility] CT Abdomen/Pelvis w/ Contras ton 04-17-2022 [...] by Ky Carvalho on 04/17/2022 1540 Normal [facility] XR Abdomen 2 Viewson 022 XR Abdomen [...] by Juan Wan on 04/10/2022 1614 Normal [facility] Specialist Covid-19 PCR (CVDTBH)on 02-05 SARS-CoV-2 (COVID-19) RNA NICOLASA+probe Ql (Unsp spec) Not detected Normal NOT DETECTED [facility] Comment on above: Result Comment: This test is not yet approved or cleared by the [place] FDA. When there are no FDA-approved or cleared tests available, and other criteria are met, FDA can make tests available under an emergency access mechanism called an Emergency Use Authorization (EUA). The EUA for this test is supported by the [place] of Health and Human Service's (HHS's) declaration [...] SARS-CoV-2. Performed By: #### C VDTBH #### [facility] [address] [place] [address] Dr. Aniceto Elizondo LIPID PROFILEon 02-11-2022 CHOL-HDL RATIO NORM SEE BELOW Normal [facility] Comment on above: Result Comment: 3.3 - 4.4 LOW RISK 4.4 - 7.1 AVERAGE RISK 7.1 - 11.0 MODERATE RISK >11.0 HIGH RISK Performed By: #### L IPID, CMP #### [facility] [address] [place] [address] Dr. Aniceto Elizondo Cholesterol [Mass/Vol] 179 mg/dL Normal <=200 [facility] Comment on above: Performed By: #### L IPID, CMP #### [facility] [address] [place] [address] Dr. Aniceto Elizondo Cholesterol in HDL [Mass/Vol] 44 mg/dL Normal 40-60 [facility] Comment on above: Performed By: #### L IPID, CMP #### [facility] [address] [place] [address] Dr. Aniceto Elizondo Cholesterol in LDL [Mass/Vol] 94.2 mg/dL Normal [facility] Comment on above: Performed By: #### L IPID, CMP #### [facility] [address] [place] [address] Dr. Aniceto Elizondo Cholesterol.total/Jsoelyn sterol in HDL [Mass ratio] 4.1 {ratio} Normal [facility] Comment on above: Performed By: #### L IPID, CMP #### [facility] [address] [place] [address] [address] Aniceto Elizondo HDL NORMAL > or = 60 mg/dl - LO W CARDIOVASCULAR RISK <40 mg/dl - HIGH CARDIOVASCULAR RISK Normal [facility] Comment on above: Performed By: #### L IPID, CMP #### [facility] [address] [address] [address] Aniceto Elizondo LDL CALC NORMAL SEE BELOW Normal [facility] Comment on above: Result Comment: <100 mg/dl OPTIMAL 100 - 129 mg/dl NEAR OR ABOVE OPTIMAL 130 - 159 mg/dl BORDERLINE HIGH 160 - 189 mg/dl HIGH >190 mg/dl VERY HIGH Performed By: #### L IPID, CMP #### [facility] [address] [address] [address] Aniceto Elizondo Triglyceride [Mass/Vol] 204 mg/dL Critically high <=150 [facility] Comment on above: Performed By: #### L IPID, CMP #### [facility] [address] [place] [address] [address] Aniceto Elizondo VLDL CALC 40.8 mg/dL Normal [facility] Comment on above: Performed By: #### L IPID, CMP #### [facility] [address] [place] [address] Dr. Aniceto Elizondo PROF 14(COMP METB)on 022 Albumin [Mass/Vol] 3.8 g/dL Normal 3.4-5.0 [facility] Comment on above: Performed By: #### L IPID, CMP #### [facility] [address] [address] [address] Aniceto Elizondo Albumin/Globulin [Mass ratio] 1.0 {ratio} Normal [facility] Comment on above: Performed By: #### L IPID, CMP #### [facility] [address] [place] [address] [address] Aniceto Elizondo ALP [Catalytic activity/Vol] 76 U/L Normal 46-116 [facility] Comment on above: Performed By: #### L IPID, CMP #### [facility] [address] [place] [address] [address] Aniceto Elizondo ALT [Catalytic activity/Vol] 24 U/L Normal 14-59 [facility] Comment on above: Performed By: #### L IPID, CMP #### [facility] [address] [address] [address] Aniceto Elizondo Anion gap [Moles/Vol] 14.2 mmol/L Normal [facility] Comment on above: Performed By: #### L IPID, CMP #### [facility] [address] [address] [address] Aniceto Elizondo AST [Catalytic activity/Vol] 25 U/L Normal 15-37 [facility] Comment on above: Performed By: #### L IPID, CMP #### [facility] [address] [place] [address] [address] Aniceto Elizondo Bilirubin [Mass/Vol] 0.6 mg/dL Normal 0.2-1.0 [facility] Comment on above: Performed By: #### L IPID, CMP #### [facility] [address] [place] [address] [address] Aniceto Elizondo Calcium [Mass/Vol] 9.1 mg/dL Normal 8.5-10.1 [facility] Comment on above: Performed By: #### L IPID, CMP #### [facility] [address] [place] [address] Dr. Aniceto Elizondo Chloride [Moles/Vol] 99 mmol/L Normal 98-107 [facility] Comment on above: Performed By: #### L IPID, CMP #### [facility] [address] [place] [address] [address] Aniceto Elizondo CO2 [Moles/Vol] 28.3 mmol/L Normal 21.0-32.0 [facility] Comment on above: Performed By: #### L IPID, CMP #### [facility] [address] [place] [address] [address] Aniceto Elizondo Creatinine [Mass/Vol] 0.64 mg/dL Normal 0.55-1.02 [facility] Comment on above: Performed By: #### L IPID, CMP #### [facility] [address] [place] [address] [address] Aniceto Elizondo EGFR-AF SALVADOREAN >60 Normal >=60 [facility] Comment on above: Performed By: #### L IPID, CMP #### [facility] [address] [place] [address] [address] Aniceto Elizondo EGFR-NON AF SALVADOREAN >60 Normal >=60 [facility] Comment on above: Performed By: #### L IPID, CMP #### [facility] [address] [address] [address] Aniceto Elizondo Globulin (S) [Mass/Vol] 3.7 g/dL Normal T [facility] Comment on above: Performed By: #### L IPID, CMP #### [facility] [address] [place] [address] [address] Aniceto Elizondo Glucose [Mass/Vol] 102 mg/dL Normal 74-106 [facility] Comment on above: Performed By: #### L IPID, CMP #### [facility] [address] [place] [address] [address] Aniceto Elizondo Potassium [Moles/Vol] 4.5 mmol/L Normal 3.5-5.1 [facility] Comment on above: Performed By: #### L IPID, CMP #### [facility] [address] [place] [address] [address] Aniceto Elizondo Protein [Mass/Vol] 7.5 g/dL Normal 6.4-8.2 [facility] Comment on above: Performed By: #### L IPID, CMP #### [facility] [address] [address] [address] Aniceto Elizondo Sodium [Moles/Vol] 137 mmol/L Normal 136-145 [facility] Comment on above: Performed By: #### L IPID, CMP #### [facility] [address] [address] [address] Aniceto Elizondo Urea nitrogen [Mass/Vol] 12.0 mg/dL Normal 7.0-18.0 [facility] Comment on above: Performed By: #### L IPID, CMP #### [facility] [address] [place] [address] [address] Aniceto Elizondo Urea nitrogen/Creatinine [Mass ratio] 18.8 mg/mg Normal [facility] Comment on above: Performed By: #### L IPID, CMP #### [facility] [address] [place] [address] [address] Aniceto Elizondo COVID-19 SOFIAOrdered By: Maritza Gutierrez on 01-29-2022 SARS-CoV+SARS-CoV-2 (COVID-19) Ag IA.rapid Ql (Resp) Negative Negative [facility] Comment on above: This is a duplicate Michelle SARS Antigen (DUNG) result to be used for statistical tracking purpose only. No Panel InformationOrdered By: Jordan Gutierrez on 01-29-2022 SARS Antigen (LFIA) [facility] HEMOGRAM AND PLATELon 2021 Hematocrit (Bld) [Volume fraction] 34.5 % Critically low 36.0-48.0 [facility] Comment on above: Performed By: #### H H #### [facility] [address] [address] [address] Aniceto Elizondo Hemoglobin (Bld) [Mass/Vol] 11.6 g/dL Critically low 12.0-16.0 [facility] Comment on above: Performed By: #### H H #### [facility] [address] [address] [address] Aniceto Elizondo MCH (RBC) [Entitic mass] 30.9 pg Normal 26.7-34.0 [facility] Comment on above: Performed By: #### H H #### [facility] [address] [address] [address] Aniceto Elizondo MCHC (RBC) [Mass/Vol] 33.6 g/dL Normal 29.9-35.2 [facility] Comment on above: Performed By: #### H H #### [facility] [address] [address] [address] Aniceto Elizondo MCV (RBC) [Entitic vol] 91.8 fL Normal 81.0-99.0 [facility] Comment on above: Performed By: #### H H #### [facility] [address] [address] [address] Aniceto Elizondo PLT 294 103/ul Normal 150-450 [facility] Comment on above: Performed By: #### H H #### [facility] [address] [address] [address] Aniceto Elizondo RBC 3.76 106/ul Critically low 4.20-5.40 [facility] Comment on above: Performed By: #### H H #### [facility] [address] [address] [address] Aniceto Elizondo WBC 6.0 103/ul Normal 4.0-11.0 [facility] Comment on above: Performed By: #### H H #### [facility] [address] [place] [address] Dr. Aniceto Elizondo MAGNESIUMon 11-21-2021 Magnesium [Mass/Vol] 2.2 mg/dL Normal 1.8-2.4 [facility] Comment on above: Performed By: #### U RAMON, RENAL, MG #### [facility] [address] [place] [address] Dr. Aniceto Elizondo RENAL FUNCTION PANELon 11-21 Albumin [Mass/Vol] 3.8 g/dL Normal 3.4-5.0 [facility] Comment on above: Performed By: #### U RAMON, RENAL, MG #### [facility] [address] [place] [address] Dr. Aniceto Elizondo Calcium [Mass/Vol] 8.9 mg/dL Normal 8.5-10.1 [facility] Comment on above: Performed By: #### U RAMON, RENAL, MG #### [facility] [address] [place] [address] Dr. Aniceto Elizondo Chloride [Moles/Vol] 97 mmol/L Critically low 98-107 [facility] Comment on above: Performed By: #### U RAMON, RENAL, MG #### [facility] [address] [place] [address] Dr. Aniceto Elizondo CO2 [Moles/Vol] 27.1 mmol/L Normal 21.0-32.0 [facility] Comment on above: Performed By: #### U RAMON, RENAL, MG #### [facility] [address] [address] [address] Aniceto Elizondo Creatinine [Mass/Vol] 0.66 mg/dL Normal 0.55-1.02 [facility] Comment on above: Performed By: #### U RAMON, RENAL, MG #### [facility] [address] [address] [address] Aniceto Elizondo EGFR-AF SALVADOREAN >60 Normal >=60 [facility] Comment on above: Performed By: #### U RAMON, RENAL, MG #### [facility] [address] [address] [address] Aniceto Elizondo EGFR-NON AF SALVADOREAN >60 Normal >=60 [facility] Comment on above: Performed By: #### U RAMON, RENAL, MG #### [facility] [address] [address] [address] Aniceto Elizondo Glucose [Mass/Vol] 101 mg/dL Normal 74-106 [facility] Comment on above: Performed By: #### U RAMON, RENAL, MG #### [facility] [address] [address] [address] Aniceto Elizondo Phosphate [Mass/Vol] 4.1 mg/dL Normal 2.6-4.7 [facility] Comment on above: Performed By: #### U RAMON, RENAL, MG #### [facility] [address] [address] [address] Aniceto Elizondo Potassium [Moles/Vol] 4.5 mmol/L Normal 3.5-5.1 [facility] Comment on above: Performed By: #### U RAMON, RENAL, MG #### [facility] [address] [address] [address] Aniceto Elizondo Sodium [Moles/Vol] 131 mmol/L Critically low 136-145 [facility] Comment on above: Performed By: #### U RAMON, RENAL, MG #### [facility] [address] [address] [address] Aniceto Elizondo Urea nitrogen [Mass/Vol] 16.0 mg/dL Normal 7.0-18.0 [facility] Comment on above: Performed By: #### U RAMON, RENAL, MG #### [facility] [address] [place] [address] Dr. Aniceto Elizondo UA RANDOM W/MICROSCOPICon BACTERIA NONE SEEN Normal NONE SEEN [facility] Comment on above: Performed By: #### U AMIC #### [facility] [address] [place] [address] Dr. Aniceto Elizondo Bilirubin Ql (U) Negative Normal NEGATIVE [facility] Comment on above: Performed By: #### U AMIC #### [facility] [address] [place] [address] Dr. Aniceto Elizondo CAST NONE SEEN Normal NONE SEEN [facility] Comment on above: Performed By: #### U AMIC #### [facility] [address] [address] [address] Aniceto Elizondo Clarity (U) CLEAR Normal CLEAR [facility] Comment on above: Performed By: #### U AMIC #### [facility] [address] [place] [address] Dr. Aniceto Elizondo Color (U) YELLOW Normal YELLOW [facility] Comment on above: Performed By: #### U AMIC #### [facility] [address] [place] [address] Dr. Aniceto Elizondo Crystals LM Nom (Urine sed) NONE SEEN Normal NONE SEEN [facility] Comment on above: Performed By: #### U AMIC #### [facility] [address] [place] [address] Dr. Aniceto Elizondo Epithelial cells LM Ql (Urine sed) FEW Abnormal NONE SEEN /RARE [facility] Comment on above: Performed By: #### U AMIC #### [facility] [address] [place] [address] Dr. Aniceto Elizondo Glucose Ql (U) Negative Normal NEGATIVE [facility] Comment on above: Performed By: #### U AMIC #### [facility] [address] [place] [address] Dr. Aniceto Elizondo Hemoglobin Ql (U) Negative Normal NEGATIVE [facility] Comment on above: Performed By: #### U AMIC #### [facility] [address] [address] [address] Aniceto Elizondo Ketones Ql (U) Negative Normal NEGATIVE [facility] Comment on above: Performed By: #### U AMIC #### [facility] [address] [place] [address] Dr. Aniceto Elizondo LEUKOCYTES Negative Normal NEGATIVE [facility] Comment on above: Performed By: #### U AMIC #### [facility] [address] [place] [address] Dr. Aniceto Elizondo MUCOUS NONE SEEN Normal NONE SEEN [facility] Comment on above: Performed By: #### U AMIC #### [facility] [address] [place] [address] Dr. Aniceto Elizondo Nitrite Ql (U) Negative Normal NEGATIVE [facility] Comment on above: Performed By: #### U AMIC #### [facility] [address] [place] [address] Dr. Aniceto Elizondo pH (U) 7.0 [pH] Normal 5-9 [facility] Comment on above: Performed By: #### U AMIC #### [facility] [address] [place] [address] Dr. Aniceto Elizondo RBC NONE SEEN Abnormal 0-2 [facility] Comment on above: Performed By: #### U AMIC #### [facility] [address] [place] [address] Dr. Aniceto Elizondo SPEC GRAVITY <=1.005 Abnormal 1.005-<=1.02 5 [facility] Comment on above: Performed By: #### U AMIC #### [facility] [address] [place] [address] Dr. Aniceto Elizondo UA PROTEIN Negative Normal NEGATIVE/ TRACE [facility] Comment on above: Performed By: #### U AMIC #### [facility] [address] [place] [address] Dr. Aniceto Elizondo Urobilinogen Qn (U) 0.2 {Ada'U}/dL Normal 0.2 - 1. 0 [facility] Comment on above: Performed By: #### U AMIC #### [facility] [address] [place] [address] Dr. Aniceto Elizondo WBC NONE SEEN Normal NONE SEEN [facility] Comment on above: Performed By: #### U AMIC #### [facility] [address] [place] [address] Dr. Aniceto Elizondo URIC ACID SERUMon 11-21-2021 Urate [Mass/Vol] 3.4 mg/dL Normal 2.6-6.0 [facility] Comment on above: Performed By: #### U RAMON, RENAL, MG #### [facility] [address] [place] [address] Dr. Aniceto Elizondo URINE T PROTEIN CREAT RATIOo n 11-21-2021 UR PROT CREAT RAT 0.40 Normal [facility] Comment on above: Performed By: #### U RTPCR #### [facility] [address] [place] [address] Dr. Aniceto Elizondo UR TOTAL PROTEIN <6.0 Normal <=12.0 [facility] Comment on above: Performed By: #### U RTPCR #### [facility] [address] [place] [address] Dr. Aniceto Elizondo URINE CREAT 14.89 mg/dL Critically low 20.00-300.00 [facility] Comment on above: Performed By: #### U RTPCR #### [facility] [address] [place] [address] Dr. Aniceto Elizondo VITAMIN D 25 OHon 11-21-2021 VIT D 25-OH 50.4 ng/mL Normal [facility] Comment on above: Performed By: #### V ITAD #### [facility] [address] [place] [address] Dr. Aniceto Elizondo VIT D RANGES SEE BELOW Normal [facility] Comment on above: Result Comment: <20 ng/mL Vit D deficient 20 - <30 ng/mL Vit D insufficient 30 - 100 ng/mL Vit D sufficient >100 ng/mL Potential Toxicity Performed By: #### V ITAD #### [facility] [address] [place] [address] Dr. Aniceto Diaz 05-03-2021 RACIEL Office Visit (KANDACE ) SARI ABBASI ([id number]) 1950 F Date Time Provider Department 05/03/21 11:30 AM JOSE G WELLS During your visit today, we recorded the following information about you: Pulse Blood pressure 83/minute 182/94 Jose G Wells MD 05/04/2021 10:18 AM Unsigned Enterprise Business Architect NAME: SARI ABBASI CLINIC NO: [id number] DATE OF SERVICE: 05/03/2021 DATE OF : [...] She has had an ultrasound done at [facility] that was done in February which [...] Jose G Wells M.D. 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 THIS DOCUMENT IS NOT AVAILABLE FOR PATIENT CARE * * * Document text: NAME: SARI ABBASI CLINIC NO: [id number] DATE OF SERVICE: 05/03/2021 DATE OF : 1950 She is here to see me in follow-up for a le (more content not included)... Normal [facility] 02-22-[address] [facility] Telephone (PODCCP) SARI ABBASI ([id number]) 1950 F Date Time Provider Department 02/22/21 [facility] During your visit today, we recorded the following information about you: Shirley Shay 02/22/2021 2:43 PM Signed Reason for call: Mrs Abbasi called and she would like to schedule a follow up appointment with DR Wells , last seen 04/26/2019. Home and cell number : [phone] Diagnosis Renal Artery stenosis Kind Regards, Shirley Shah Coord 02/23/2021 5:13 PM Signed Sari Abbasi appointments have been scheduled accordingly. Patient has been notified via telephone and [employer] and appointment schedule sent via US Mail [...] Status:Closed by SHIRLEY SHAY on 02/22/21 Normal [facility] Albumin [Mass/volume] in Ser um or Plasmaon 07-05-2020 Albumin [Mass/Vol] 4.2 g/dL 3.2-5.5 [facility] Automated basophil %on 07-05 Basophils/100 WBC (Bld) 0.6 % [facility] Automated basophil counton 1 Basophils (Bld) [#/Vol] 0.0 10*3/uL 0.0-0.2 [facility] Automated blood lymphocyte c ount (number/volume)on 07-05-2020 Lymphocytes (Bld) [#/Vol] 1.2 10*3/uL 1.00-4.8 [facility] Automated blood lymphocyte c ount as percentage of total leukocyteson 07-05-2020 Lymphocytes/100 WBC (Bld) 16.6 % [facility] Automated blood monocyte cou nton 07-05-2020 Monocytes (Bld) [#/Vol] 0.4 10*3/uL 0.0-0.8 [facility] Automated blood platelet cou nt (count/volume)on 07-05-2020 Platelets (Bld) [#/Vol] 282 10*3/uL 150-450 [facility] Automated blood platelet elpidio n volume measurementon 07-05-2020 Platelet mean volume (Bld) [Entitic vol] 8.7 fL 6.3-10.7 [facility] Automated eosinophil %on Eosinophils/100 WBC (Bld) 0.4 % [facility] Automated eosinophil counton 07-05-2020 Eosinophils (Bld) [#/Vol] 0.0 10*3/uL 0.0-0.45 [facility] Automated erythrocyte distri bution width ratioon 07-05-2020 Erythrocyte distribution width (RBC) [Ratio] 13.7 % 11.9-15.3 [facility] Automated erythrocyte mean c orpuscular hemoglobin (mass per erythrocyte)on 07-05-2020 MCH (RBC) [Entitic mass] 30.2 pg 24.7-34.3 [facility] Automated erythrocyte mean c orpuscular hemoglobin concentration measurement (mass/volon 07-05-2020 MCHC (RBC) [Mass/Vol] 33.1 g/dL 32.0-35.0 [facility] Automated erythrocyte mean c orpuscular volumeon 07-05-2020 MCV (RBC) [Entitic vol] 91.1 fL 80-100 F [facility] Automated monocyte %on 07-05 Monocytes/100 WBC (Bld) 5.3 % F [facility] Automated neutrophil %on Neutrophils/100 WBC (Bld) 77.1 % [facility] Blood erythrocytes automated count (number/volume)on 07-05-2020 RBC (Bld) [#/Vol] 3.94 10*6/uL 3.60-5.00 [facility] Blood hemoglobin measurement (mass/volume)on 07-05-2020 Hemoglobin (Bld) [Mass/Vol] 11.9 g/dL 11.8-15.4 [facility] Blood leukocytes automated c ount (number/volume)on 07-05-2020 WBC (Bld) [#/Vol] 7.1 10*3/uL 4.5-11.0 [facility] Blood neutrophil count by au tomated method (number/volume)on 07-05-2020 Neutrophils (Bld) [#/Vol] 5.4 10*3/uL 1.8-7.7 [facility] Cholesterol [Mass/volume] in Serum or Plasmaon 07-05-2020 Cholesterol [Mass/Vol] 173 mg/dL 140-200 [facility] Comment on above: Chol less than 200 m g/dl low riskChol 201-239 mg/dl borderline riskChol 240 mg/dl and greater high risk Cholesterol in LDL [Mass/vol ume] in Serum or Plasma by calculationon 07-05-2020 Cholesterol in LDL [Mass/Vol] 93 mg/dL 0-100 [facility] Comment on above: LDL ATP III CLASSIFI CATIONLDL less than 100 mg/dL OptimalLDL 100-129 mg/dL Near or above optimalLDL 130-159 mg/dL Borderline highLDL 160-189 mg/dL HighLDL greater than 189 mg/dL Very high Cholesterol in VLDL [Mass/vo lume] in Serum or Plasma by calculationon 07-05-2020 Cholesterol in VLDL [Mass/Vol] 17 mg/dL [facility] Erythrocyte sedimentation ra te by Photometric methodon 07-05-2020 ESR Photometric method (Bld) [Velocity] 19 mm/hr 0-29 [facility] Estimated glomerular filtrat ion rate (GFR) non- Americanon 07-05-2020 GFR/1.73 sq M predicted among non-blacks MDRD (S/P/Bld) [Vol rate/Area] mL/min/{1.73_m2} [facility] Hematocrit [Volume Fraction] of Blood by Automated counton 07-05-2020 Hematocrit (Bld) [Volume fraction] 35.9 % 34.0-46.4 [facility] Otheron 07-05-2020 GFR/1.73 sq M.predicted MDRD (S/P/Bld) [Vol rate/Area] mL/min/{1.73_m2} [facility] Comment on above: GFR estimated refere nce range: According to KDOQI guidelines, <60 ml/min/1.73m2 is sufficient to diagnose a patient with chronic kidney disease. Nucleated RBC/100 WBC (Bld) [Ratio] 0.0 % 0-0.5 [facility] Creatinine Clearance (Chem N/A [facility] Protein [Mass/volume] in Ser um or Plasmaon 07-05-2020 Protein [Mass/Vol] 7.2 g/dL 6.1-7.9 [facility] Serum globulin measurement b y calculation (mass/volume)on 07-05-2020 Globulin (S) [Mass/Vol] 3.0 g/dL [facility] Serum or plasma alanine craig otransferase measurement without P-5'-P (enzymatic activion 07-05-2020 ALT No additional P-5'-P [Catalytic activity/Vol] 23 U/L [facility] Serum or plasma albumin/glob ulin mass ratioon 07-05-2020 Albumin/Globulin [Mass ratio] 1.4 {ratio} [facility] Serum or plasma alkaline lakisha sphatase measurement (enzymatic activity/volume)on 07-05-2020 ALP [Catalytic activity/Vol] 63 U/L 32-92 [facility] Serum or plasma aspartate am inotransferase measurement (enzymatic activity/volume)on 07-05-2020 AST [Catalytic activity/Vol] 27 U/L 10-42 [facility] Serum or plasma calcium yvonne urement (mass/volume)on 07-05-2020 Calcium [Mass/Vol] 9.4 mg/dL 8.2-10.2 [facility] Serum or plasma chloride elpidio surement (moles/volume)on 07-05-2020 Chloride [Moles/Vol] 96 mmol/L 95-114 [facility] Serum or plasma creatinine m easurement with calculation of estimated glomerular filtron 07-05-2020 Creatinine [Mass/Vol] 0.64 mg/dL 0.44-1.03 [facility] Serum or plasma glucose yvonne urement (mass/volume)on 07-05-2020 Glucose [Mass/Vol] 114 mg/dL 70-100 [facility] Comment on above: ADA recommended refe rence rangeRandom Glucose Reference Range is dependent on time and content of last meal. Glucose of more than 200 mg/dL in a nonstressed, ambulatory subject supports the diagnosis of Diabetes Mellitus. Serum or plasma high density lipoprotein (HDL) cholesterol measurementon 07-05-2020 Cholesterol in HDL [Mass/Vol] 63 mg/dL 35-85 [facility] Comment on above: HDL CHOL ATP-III CLA SSIFICATION Cardiovascular RiskHDL > or equal to 60 mg/dL LOWHDL < 40 mg/dL HIGH Serum or plasma potassium me asurement (moles/volume)on 07-05-2020 Potassium [Moles/Vol] 3.9 mmol/L 3.5-5.1 [facility] Serum or plasma sodium measu rement (moles/volume)on 07-05-2020 Sodium [Moles/Vol] 131 mmol/L 136-146 [facility] Serum or plasma total biliru bin measurement (mass/volume)on 07-05-2020 Bilirubin [Mass/Vol] 0.6 mg/dL 0.3-1.2 [facility] Serum or plasma total carbon dioxide measurement (moles/volume)on 07-05-2020 CO2 [Moles/Vol] 24.3 mmol/L 22.0-30.0 [facility] Serum or plasma total choles terol/high density lipoprotein (HDL) cholesterol mass ashok 07-05-2020 Cholesterol.total/Joselyn sterol in HDL [Mass ratio] 2.7 {ratio} [facility] Serum or plasma urea nitroge n measurement (mass/volume)on 07-05-2020 Urea nitrogen [Mass/Vol] 15 mg/dL 9-23 [facility] Triglyceride [Mass/volume] i n Serum or Plasmaon 07-05-2020 Triglyceride [Mass/Vol] 86 mg/dL 35-[address] [facility] Comment on above: TRIG ATP III CLASSIF ICATIONTRIG less than 150 mg/dL NormalTRIG 150-199 mg/dL Borderline highTRIG 200-500 mg/dL High TRIG greater than 500 mg/dL Very highStandard traceable to the Center for Disease Conrtrol and Prevention (CDC) test method. Coding Summary.on 06-19-2018 Coding Summary. CODING DATE: 06/19/[address] [facility] DSC STATUS: Home (Routine DC) PAYOR: [...] Revised Date Saved: 06/19/2018 01:41 pm Normal [facility] Main OR Intraoperative Recor don 06-18-2018 Main OR Intraoperative Record IntraOp Document Type FTURO Summary Primary Physician: Kel Lehman MD, Khadar Mcmillan Finalized Date/Time: 06/18/18 14:22:44 Pt. Name: SARI ABBASI/Sex: 1950 Female Med Rec #: [id number] Physician: Khadar Begum Jr., MD Financial #: [id number] Pt. Type: O Room/Bed: / Admit/Disch: 06/18/18 13:04:11 - Institution: Case Times FTURO Entry 1 Patient Times In Room 06/18/18 14:16:00 Out Room 06/18/18 14:22:00 Procedure Times Start 06/18/18 14:18:00 Stop 06/18/18 14:20:00 Anesthesia Times Last Modified By: Barrera SIMON, RN, Heather 06/18/18 14:20:03 Case Attendance FTURO Entry 1 Entry 2 Entry 3 Case Attendee Khadar Begum Jr., MD, RN, [facility], Latasha Romero Role Performed Surgeon - Primary Engineering Assistant - Primary Scrub - Primary Time In [...] 2 - Clean-Contaminated Last Modified By: Barrera SIMON, Heather DHALIWAL 06/18/18 14:20:08 General Case Data FTURO Pre-Care [...] 14:22 Barrera SIMON RN, Kelly 06/18/18 14:22 [facility] Main OR Preoperative Recordo n 06-18-2018 Main OR Preoperative Record Holding Area Document Type FTURO Summary Primary Physician: Khadar Begum Jr., MD Finalized Date/Time: 06/18/18 13:22:18 Pt. Name: ASRI ABBASI/Sex: 1950 Female Med Rec #: [id number] Physician: Khadar Begum Jr., MD Financial #: [id number] Pt. Type: O Room/Bed: / Admit/Disch: 06/18/18 [...] Pain: No Comment: pr Skin Integrity Intact, [place], Warm, & Dry Vitals - EU Blood Pressure 155/79 Pulse 78 bpm Respirations 18 br/min SPO2 Last Modified By: Maryan Cortes LPN 06/18/18 13:22:13 Finalized By: Maryan Cortes LPN Document Signatures Signed By: Maryan Cortes LPN 06/18/18 13:22 Normal [facility] Operative Reporton 8 Operative Report Patient: [...] urine. The Urethra was dilated to: 26 Arabic w/ sounds. Devices Implanted: None. Removal: Cystoscope is removed, The patient tolerated it well. Postoperative Information Discharge: Patient is discharged home with antibiotic coverage, Follow up arranged. Normal [facility] Comment on above: Result Comment: Elec tronically Signed By: Kel Lehman MD, Khadar Mcmillan\.br\Date and Time Signed: 06/18/18 14:22 EST Vital Signs Date Time Vital Sign Value Performing Clinician Facility 02-08-2025 17:02-0400 Body height 173.99 cm PHYSICIAN NO [facility] 02-08-2025 17:02-0400 Body mass index (BMI) [Ratio] 26.4 kg/m2 PHYSICIAN NO [facility] 02-08-2025 17:02-0400 Body weight 79.83 kg PHYSICIAN NO [facility] 02-08-2025 17:02-0400 Diastolic blood pressure 69 mm[Hg] PHYSICIAN NO [facility] 02-08-2025 17:02-0400 Heart rate 74 /min PHYSICIAN NO [facility] 02-08-2025 17:02-0400 Respiratory rate 16 /min PHYSICIAN NO [facility] 02-08-2025 17:02-0400 SaO2% (BldA) [Mass fraction] 95 % PHYSICIAN NO [facility] 02-08-2025 17:02-0400 Systolic blood pressure 141 mm[Hg] PHYSICIAN NO [facility] 01-10-2025 12:46-0400 Body height 173.99 cm Hudson Castañeda MD Work Phone: [facility] 01-10-2025 12:46-0400 Body mass index (BMI) [Ratio] 26.4 kg/m2 Hudson Castañeda MD Work Phone: [facility] 01-10-2025 12:46-0400 Body weight 79.83 kg Hudson Castañeda MD Work Phone: [facility] 01-10-2025 12:46-0400 Diastolic blood pressure 65 mm[Hg] Hudson Castañeda MD Work Phone: [facility] 01-10-2025 12:46-0400 Heart rate 75 /min Hudson Castañeda MD Work Phone: [facility] 01-10-2025 12:46-0400 Systolic blood pressure 124 mm[Hg] Hudson Castañeda MD Work Phone: [facility] 01-05-2025 09:41-0400 Body height 175.3 cm Hudson Castañeda MD Work Phone: [facility] 01-05-2025 09:41-0400 Body mass index (BMI) [Ratio] 25.84 kg/m2 Hudson Castañeda MD Work Phone: [facility] 01-05-2025 09:41-0400 Body weight 79.38 kg Hudson Castañeda MD Work Phone: [facility] 11-25-2024 11:30-0400 Body height 175.26 cm PHYSICIAN NO [facility] 11-25-2024 11:30-0400 Body mass index (BMI) [Ratio] 25.8 kg/m2 PHYSICIAN NO [facility] 11-25-2024 11:30-0400 Body temperature 97.3 [degF] PHYSICIAN NO [facility] 11-25-2024 11:30-0400 Body weight 79.43 kg PHYSICIAN NO [facility] 11-25-2024 11:30-0400 Diastolic blood pressure 70 mm[Hg] PHYSICIAN NO [facility] 11-25-2024 11:30-0400 Heart rate 74 /min PHYSICIAN NO [facility] 11-25-2024 11:30-0400 Respiratory rate 16 /min PHYSICIAN NO [facility] 11-25-2024 11:30-0400 SaO2% (BldA) [Mass fraction] 99 % PHYSICIAN NO [facility] 11-25-2024 11:30-0400 Systolic blood pressure 134 mm[Hg] PHYSICIAN NO [facility] 11-07-2024 12:03-0400 Body height 175.[address] [facility] 11-07-2024 12:03-0400 Body mass index (BMI) [Ratio] 25.1 kg/m2 [facility] 11-07-2024 12:03-0400 Body temperature 99.1 [degF] [facility] 11-07-2024 12:03-0400 Body weight 77.[address] [facility] 11-07-2024 12:03-0400 Diastolic blood pressure 76 mm[Hg] [facility] 11-07-2024 12:03-0400 Heart rate 90 /min [facility] 11-07-2024 12:03-0400 Respiratory rate 16 /min [facility] 11-07-2024 12:03-0400 SaO2% (BldA) [Mass fraction] 96 % [facility] 11-07-2024 12:03-0400 Systolic blood pressure 144 mm[Hg] [facility] 10-25-2024 09:14-0400 Body height 175.3 cm Hudson Castañeda MD Work Phone: [facility] 10-25-2024 09:14-0400 Body mass index (BMI) [Ratio] 25.84 kg/m2 Hudson Castañeda MD Work Phone: [facility] 10-25-2024 09:14-0400 Body weight 79.38 kg Hudson Castañeda MD Work Phone: [facility] 10-21-2024 13:36-0400 Body height 175.3 cm Maribeth Gillmor [employer] Work Phone: [facility] 10-21-2024 13:36-0400 Body mass index (BMI) [Ratio] 25.84 kg/m2 Maribeth Gunjanmor [employer] [place] Work Phone: [facility] 10-21-2024 13:36-0400 Body weight 79.38 kg Maribeth Gunjanmor [employer] [place] Work Phone: [facility] 10-21-2024 13:36-0400 Diastolic blood pressure 66 mm[Hg] Maribeth Gunjanmor [employer] [place] Work Phone: [facility] 10-21-2024 13:36-0400 Heart rate 69 /min Maribeth Gunjanmor [employer] [place] Work Phone: [facility] 10-21-2024 13:36-0400 Systolic blood pressure 126 mm[Hg] Maribeth Gunjanmor [employer] [place] Work Phone: [facility] 08-11-2024 13:16-0500 Diastolic blood pressure 82 mm[Hg] Olive Beltran DO Work Phone: [facility] 08-11-2024 13:16-0500 Systolic blood pressure 136 mm[Hg] Olive Beltran DO Work Phone: [facility] 06-16-2024 11:24-0500 Body mass index (BMI) [Ratio] 25.4 kg/m2 José Luis Flores MD Work Phone: [facility] 06-16-2024 11:24-0500 Body weight 78.02 kg José Luis Flores MD Work Phone: [facility] 06-16-2024 11:24-0500 Diastolic blood pressure 62 mm[Hg] José Luis Flores MD Work Phone: [facility] 06-16-2024 11:24-0500 Systolic blood pressure 112 mm[Hg] José Luis Flores MD Work Phone: [facility] 05-24-2024 13:35-0500 Body height 175.3 cm Maribeth Gunjanmor [employer] [place] Work Phone: [facility] 05-24-2024 13:35-0500 Body mass index (BMI) [Ratio] 25.75 kg/m2 Maribeth Beachr [employer] [place] Work Phone: [facility] 05-24-2024 13:35-0500 Body weight 79.1 kg Maribeth Beachr [employer] [place] Work Phone: [facility] 05-24-2024 13:35-0500 Diastolic blood pressure 68 mm[Hg] Maribeth Beachr COOK CHILI Work Phone: [facility] 05-24-2024 13:35-0500 Heart rate 64 /min Maribeth Beachr COOK CHILI Work Phone: [facility] 05-24-2024 13:35-0500 SaO2% (BldA) [Mass fraction] 98 % Maribeth Beachr COOK CHILI Work Phone: [facility] 05-24-2024 13:35-0500 Systolic blood pressure 132 mm[Hg] Maribeth Beachr COOK CHILI Work Phone: [facility] 05-20-2024 10:37-0500 Body height 175.3 cm Hudson Castañeda MD Work Phone: [facility] 05-20-2024 10:37-0500 Body mass index (BMI) [Ratio] 25.7 kg/m2 Hudson Castañeda MD Work Phone: [facility] 05-20-2024 10:37-0500 Body temperature 98.01 [degF] Hudson Castañeda MD Work Phone: [facility] 05-20-2024 10:37-0500 Body weight 78.93 kg Hudson Castañeda MD Work Phone: [facility] 05-20-2024 10:37-0500 Heart rate 68 /min Hudson Castañeda MD Work Phone: [facility] 05-20-2024 10:37-0500 SaO2% (BldA) [Mass fraction] 98 % Hudson Castañeda MD Work Phone: [facility] 03-29-2024 11:05-0400 Body height 175.3 cm Hudson Castañeda MD Work Phone: [facility] 03-29-2024 11:05-0400 Body mass index (BMI) [Ratio] 25.7 kg/m2 Hudson Castañeda MD Work Phone: [facility] 03-29-2024 11:05-0400 Body weight 78.93 kg [place] Castañeda MD Work Phone: [facility] 03-29-2024 11:05-0400 Diastolic blood pressure 78 mm[Hg] [place] Castañeda MD Work Phone: [facility] 03-29-2024 11:05-0400 Heart rate 70 /min [place] Castañeda MD Work Phone: [facility] 03-29-2024 11:05-0400 SaO2% (BldA) [Mass fraction] 99 % [place] Castañeda MD Work Phone: [facility] 03-29-2024 11:05-0400 Systolic blood pressure 128 mm[Hg] [place] Castañeda MD Work Phone: [facility] 03-02-2024 11:50-0400 Diastolic blood pressure 74 mm[Hg] Olive Beltran DO Work Phone: [facility] 03-02-2024 11:50-0400 Heart rate 60 /min Olive Beltran DO Work Phone: [facility] 03-02-2024 11:50-0400 SaO2% (BldA) [Mass fraction] 99 % Olive Beltran DO Work Phone: [facility] 03-02-2024 11:50-0400 Systolic blood pressure 126 mm[Hg] Olive Beltran DO Work Phone: [facility] 12-08-2023 16:56-0400 Body mass index (BMI) [Ratio] 24.96 kg/m2 Deb López MD Work Phone: [facility] 12-08-2023 16:56-0400 Body weight 76.66 kg Deb López MD Work Phone: [facility] 12-08-2023 16:56-0400 Diastolic blood pressure 68 mm[Hg] Deb López MD Work Phone: [facility] 12-08-2023 16:56-0400 Systolic blood pressure 147 mm[Hg] Deb López MD Work Phone: [facility] 11-28-2023 13:44-0400 Body height 175.26 cm MD [place] Castañeda Work Phone: [facility] 11-28-2023 13:44-0400 Body mass index (BMI) [Ratio] 25.5 kg/m2 MD [place] Castañeda Work Phone: [facility] 11-28-2023 13:44-0400 Body temperature 98.1 [degF] MD [place] Castañeda Work Phone: [facility] 11-28-2023 13:44-0400 Body weight 78.52 kg MD [place] Castañeda Work Phone: [facility] 11-28-2023 13:44-0400 Diastolic blood pressure 71 mm[Hg] MD [place] Castañeda Work Phone: [facility] 11-28-2023 13:44-0400 Heart rate 69 /min MD [place] Castañeda Work Phone: [facility] 11-28-2023 13:44-0400 Respiratory rate 18 /min MD [place] Castañeda Work Phone: [facility] 11-28-2023 13:44-0400 SaO2% (BldA) [Mass fraction] 95 % MD [place] Castañeda Work Phone: [facility] 11-28-2023 13:44-0400 Systolic blood pressure 128 mm[Hg] MD [place] Castañeda Work Phone: [facility] 11-13-2023 11:00-0400 Body height 175.26 cm MD [place] Castañeda Work Phone: [facility] 11-13-2023 11:00-0400 Body mass index (BMI) [Ratio] 25.5 kg/m2 MD [place] Castañeda Work Phone: [facility] 11-13-2023 11:00-0400 Body temperature 96.5 [degF] MD [place] Castañeda Work Phone: [facility] 11-13-2023 11:00-0400 Body weight 78.58 kg MD [place] Castañeda Work Phone: [facility] 11-13-2023 11:00-0400 Diastolic blood pressure 70 mm[Hg] MD [place] Castañeda Work Phone: [facility] 11-13-2023 11:00-0400 Heart rate 72 /min MD [place] Castañeda Work Phone: [facility] 11-13-2023 11:00-0400 Respiratory rate 16 /min MD [place] Castañeda Work Phone: [facility] 11-13-2023 11:00-0400 SaO2% (BldA) [Mass fraction] 98 % MD [place] Castañeda Work Phone: [facility] 11-13-2023 11:00-0400 Systolic blood pressure 130 mm[Hg] MD [place] Castañeda Work Phone: [facility] 11-03-2023 13:09-0400 Body height 175.3 cm Pricilla Lobato PROP AND EFFECTS DESIGNER-CORPORATE RELATIONS MANAGER Work Phone: [facility] 11-03-2023 13:09-0400 Body mass index (BMI) [Ratio] 25.49 kg/m2 Pricilla Lobato PROP AND EFFECTS DESIGNER-CORPORATE RELATIONS MANAGER Work Phone: [facility] 11-03-2023 13:09-0400 Body weight 78.29 kg Pricilla Lobato PROP AND EFFECTS DESIGNER-CORPORATE RELATIONS MANAGER Work Phone: [facility] 11-03-2023 13:09-0400 Diastolic blood pressure 80 mm[Hg] Pricilla Lobato PROP AND EFFECTS DESIGNER-CORPORATE RELATIONS MANAGER [facility] 11-03-2023 13:09-0400 Heart rate 68 /min Pricilla Lobato PROP AND EFFECTS DESIGNER-CORPORATE RELATIONS MANAGER [facility] 11-03-2023 13:09-0400 Respiratory rate 18 /min Pricilla Lobtao PROP AND EFFECTS DESIGNER-CORPORATE RELATIONS MANAGER [facility] 11-03-2023 13:09-0400 Systolic blood pressure 140 mm[Hg] Pricilla Lobato PROP AND EFFECTS DESIGNER-CORPORATE RELATIONS MANAGER [facility] 12-05-2022 11:00-0400 Body height 175.26 cm Gonsalo You Other [employer] Other 12-05-2022 11:00-0400 Body mass index (BMI) [Ratio] 25.75 kg/m2 Gonsalo You Other [employer] Other 12-05-2022 11:00-0400 Body temperature 96.6 [degF] Gonsalo You Other [employer] Other 12-05-2022 11:00-0400 Body weight 79.11 kg Gonsalo You Other [employer] Other 12-05-2022 11:00-0400 Diastolic blood pressure 72 mm[Hg] Gonsalo You Other [employer] Other 12-05-2022 11:00-0400 Respiratory rate 18 /min Gonsalo You Other [employer] Other 12-05-2022 11:00-0400 SaO2% (BldA) [Mass fraction] 98 % Gonsalo You Other [employer] Other 12-05-2022 11:00-0400 Systolic blood pressure 139 mm[Hg] Gonsalo You Other [employer] Other 01-31-2022 09:30-0400 Diastolic blood pressure 78 mm[Hg] MD [place] Castañeda Work Phone: [facility] 01-31-2022 09:30-0400 Heart rate 69 /min MD [place] Castañeda Work Phone: [facility] 01-31-2022 09:30-0400 Respiratory rate 16 /min MD [place] Castañeda Work Phone: [facility] 01-31-2022 09:30-0400 SaO2% (BldA) [Mass fraction] 99 % MD [place] Castañeda Work Phone: [facility] 01-31-2022 09:30-0400 Systolic blood pressure 124 mm[Hg] MD [place] Castañeda Work Phone: [facility] 01-31-2022 08:00-0400 Body height 175.26 cm MD [place] Castañeda Work Phone: [facility] 01-31-2022 08:00-0400 Body temperature 98.5 [degF] MD [place] Castañeda Work Phone: [facility] 01-31-2022 08:00-0400 Body weight 74.84 kg MD [place] Castañeda Work Phone: [facility] 11-29-2021 11:20-0400 Body height 175.26 cm Gonsalo You Other [employer] Other 11-29-2021 11:20-0400 Body mass index (BMI) [Ratio] 26.25 kg/m2 Gonsalo Oyu Other [employer] Other 11-29-2021 11:20-0400 Body temperature 96.5 [degF] Gonsalo You Other [employer] Other 11-29-2021 11:20-0400 Body weight 80.65 kg Gonsalo You Other [employer] Other 11-29-2021 11:20-0400 Diastolic blood pressure 90 mm[Hg] Gonsalo You Other [employer] Other 11-29-2021 11:20-0400 Respiratory rate 18 /min Gonsalo You Other [employer] Other 11-29-2021 11:20-0400 SaO2% (BldA) [Mass fraction] 95 % Gonsalo You Other [employer] Other 11-29-2021 11:20-0400 Systolic blood pressure 160 mm[Hg] Gonsalo You Other [employer] Other Encounters Encounter Date Encounter Type Care Provider Facility Start: 02-08-2025 End: 02-08-2025 ambulatory PHYSICIAN [facility] Work Phone: Start: 02-08-2025 End: 02-08-2025 Patient encounter procedure Olive Gong DO -[facility] [place] Work Phone: Start: 02-07-2025 End: 02-07-2025 Patient encounter procedure [facility]ERRAL [facility]ELF [facility] Work Phone: Start: 02-07-2025 End: 02-07-2025 ambulatory PHYSICIAN NO [facility] Work Phone: Start: 01-18-2025 End: 01-18-2025 Office outpatient visit 25 minutes [place] Castañeda MD Work Phone: [facility] Comment on above: COVID-19 (Primary Dx ); Acute UTI (urinary tract infection); Encounter for examination following treatment at hospital; Polypharmacy; Overweight (BMI 25.0-29.9); Atrophic vaginitis Start: 01-18-2025 End: 01-18-2025 ambulatory [place] CASTAÑEDA Not Available Start: 01-18-2025 End: 01-18-2025 Bamboo flowsheet [place] Castañeda MD Work Phone: [facility] Start: 01-18-2025 End: 01-18-2025 Bamboo flowsheet [place] Castañeda MD Work Phone: [facility] Start: 01-10-2025 End: 01-10-2025 ambulatory [place] Castañeda MD Work Phone: [facility] Work Phone: Start: 01-10-2025 End: 01-10-2025 Patient encounter procedure Maribeth Pompa PROP AND EFFECTS DESIGNER -[facility] [place] Work Phone: Start: 01-08-2025 End: 01-08-2025 ambulatory [place] Castañeda MD Work Phone: [facility] Work Phone: Start: 01-08-2025 End: 01-08-2025 Departed Referred Gene Lyn MD -[facility] Start: 01-08-2025 End: 01-10-2025 Clinisync Result Encounter Generic External Data Provider [facility] External Department Unsolicited Start: 01-08-2025 End: 01-10-2025 Clinisync Result Encounter Generic External Data Provider [facility] External Department Unsolicited Start: 01-05-2025 End: 01-05-2025 ambulatory [place] CASTAÑEDA Not Available Start: 01-05-2025 End: 01-05-2025 Office outpatient visit 15 minutes [place] Castañeda MD Work Phone: [facility] Comment on above: Skin tear of forearm without complication, initial encounter Start: 01-03-2025 End: 01-03-2025 Patient encounter procedure Tamera Randall MD -Lab [address] Work Phone: Start: 01-03-2025 End: 01-03-2025 ambulatory [place] Castañeda MD Work Phone: [facility] Work Phone: Start: 11-25-2024 End: 11-25-2024 ambulatory PHYSICIAN NO [facility] Work Phone: Start: 11-25-2024 End: 11-25-2024 Patient encounter procedure PHYSICIAN NO [facility] Nephrology [place] Work Phone: Start: 11-15-2024 End: 11-15-2024 Clinisync Result Encounter Generic External Data Provider [facility] External Department Unsolicited Start: 11-15-2024 End: 11-15-2024 Clinisync Result Encounter Generic External Data Provider [facility] External Department Unsolicited Start: 11-15-2024 Non-patient / Non-visit PHYSICIAN NO [facility] Work Phone: Start: 11-07-2024 End: 11-07-2024 Departed Referred Kyra Gomes APRN Work Phone: [facility] [place] Work Phone: Start: 11-07-2024 End: 11-07-2024 ambulatory Kyra Gomes [facility] Work Phone: Start: 11-07-2024 End: 11-07-2024 Patient encounter procedure [facility] Physician [facility] [place] Work Phone: Start: [...] Start: 10-21-2024 End: 10-21-2024 Bamboo flowsheet Maribeth Gillmor COOK CHILI Work Phone: [facility] Start: 10-21-2024 End: 10-21-2024 Bamboo flowsheet Maribeth Gunjanmor COOK CHILI Work Phone: [facility] Start: 10-21-2024 End: 10-21-2024 Office outpatient visit 25 minutes Maribeth Powers COOK CHILI Work Phone: [facility] Comment on above: Neck pain (Primary D x); Low back pain at multiple sites; KENNEDY (obstructive sleep apnea); Primary insomnia Start: 10-21-2024 End: 10-21-2024 ambulatory MARIBETH GILLMOR Not Available Start: 10-05-2024 End: 10-05-2024 Refill Rony SCOTT Comment on above: Primary insomnia Start: 08-11-2024 End: 08-11-2024 Bamboo flowsheet Olive Gong DO Work Phone: [facility] [place] Start: 08-11-2024 End: 08-11-2024 Bamboo flowsheet Olive Beltran DO Work Phone: [facility] Start: 08-11-2024 End: 08-11-2024 Patient encounter procedure Olive Gong DO Work Phone: [facility] Comment on above: Myalgia (Primary Dx) ; Neck pain Start: 08-11-2024 End: 08-11-2024 ambulatory OLIVE GONG Not Available Start: 07-08-2024 End: 07-09-[address] [facility] [place] [address] Comment on above: [...] Not Available Start: 06-14-2024 End: 06-14-2024 ambulatory [facility] Start: 05-24-2024 End: 05-24-2024 Bamboo flowsheet Maribeth Bayleer COOK CHILI Work Phone: [facility] [place] [address] Start: 05-24-2024 End: 05-24-2024 Bamboo flowsheet Maribeth Gillmor COOK CHILI Work Phone: [facility] [place] [address] Start: 05-24-2024 End: 05-24-2024 Office outpatient visit 25 minutes Maribeth Powers COOK CHILI Work Phone: [facility] Comment on above: KENNEDY (obstructive sle ep apnea) (Primary Dx); Myalgia; Chronic low back pain with bilateral sciatica, unspecified back pain laterality; Neck pain; Primary insomnia Start: 05-24-2024 End: 05-24-2024 ambulatory MARIBETH GILLMOR Not Available Start: 05-20-2024 End: 05-20-2024 Office outpatient visit 15 minutes [place] Castañeda MD Work Phone: [facility] Comment on above: Bronchitis (Primary Dx); Polypharmacy Start: 05-20-2024 End: 05-20-2024 ambulatory [place] CASTAÑEDA Not Available Start: 04-23-2024 End: 04-23-2024 Patient encounter procedure MD [place] Castañeda Work Phone: [facility] Start: 04-23-2024 End: 04-23-2024 ambulatory MD [place] Castañeda Work Phone: [facility] Work Phone: Start: 04-10-2024 End: 04-12-2024 Refill Olive Gong DO Work Phone: [facility] [employer] [address] Comment on above: Primary insomnia Start: [...] Bamboo flowsheet Olive Gong DO Work Phone: [facility] [place] [address] Start: 03-02-2024 End: 03-02-2024 Bamboo flowsheet Olive Gong DO Work Phone: [facility] [place] [address] Start: 03-02-2024 End: 03-02-2024 Office outpatient visit 25 minutes Olive Gong DO Work Phone: [facility] Comment on above: Neck pain (Primary D x); Chronic low back pain with bilateral sciatica, unspecified back pain laterality; Myalgia; Primary insomnia; KENNEDY (obstructive sleep apnea); Sciatica, unspecified laterality Start: 03-02-2024 End: 03-02-2024 ambulatory OLIVE GONG Not Available Start: 02-05-2024 End: 02-05-2024 ambulatory MD [place] Castañeda Work Phone: [facility] Work Phone: Start: 02-05-2024 End: 02-05-2024 Patient encounter procedure MD [place] Castañeda Work Phone: [facility] Work Phone: Start: 12-08-2023 End: 12-08-2023 Office outpatient visit 25 minutes Deb López MD Work Phone: [facility] Comment on above: Renal artery stenosi s (CMS-HCC) (Primary Dx) Start: 12-08-2023 ambulatory DEB LÓPEZ [facility] Amb[facility] Start: 11-28-2023 End: 11-28-2023 ambulatory MD [place] Castañeda Work Phone: [facility] Work Phone: Start: 11-28-2023 End: 11-28-2023 Patient encounter procedure MD [place] Castañeda Work Phone: [facility] Urgent Care Jose Luis Work Phone: Start: 11-25-2023 End: 11-25-2023 ambulatory PRICILLAYESICA LOBATO [facility] Start: 11-13-2023 End: 11-13-2023 ambulatory MD [place] Castañeda Work Phone: [facility] Work Phone: Start: 11-13-2023 End: 11-13-2023 Patient encounter procedure MD [place] Castañeda Work Phone: [facility] Physician [facility] Nephrology Jose Luis Work Phone: Start: 11-03-2023 End: 11-03-2023 Office outpatient visit 25 minutes 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); Epigastric pain Start: 11-03-2023 End: 11-03-2023 ambulatory [facility] Ambulatory [facility] Start: 10-27-2023 End: 10-27-2023 ambulatory MD [place] Castañeda Work Phone: [facility] Work Phone: Start: 10-27-2023 End: 10-27-2023 Patient encounter procedure MD [place] Castañeda Work Phone: [facility] [address] Work Phone: Start: 10-17-2023 End: 10-17-2023 ambulatory [facility] Start: 05-08-2023 End: 05-08-2023 ambulatory Gonsalo You Other [employer] Other Start: 05-08-2023 Telephone encounter Gonsalo You [facility] Start: 04-29-2023 End: 04-29-2023 ambulatory MD [place] Castañeda Work Phone: [facility] Work Phone: Start: 04-29-2023 End: 04-29-2023 Patient encounter procedure MD [place] Castañeda Work Phone: [facility] [address] Work Phone: Start: 01-08-2023 End: 01-08-2023 ambulatory MD [place] Castañeda Work Phone: [facility] Work Phone: Start: 01-08-2023 End: 01-08-2023 Patient encounter procedure MD [place] Castañeda Work Phone: [facility] Work Phone: Start: 12-05-2022 End: 12-05-2022 ambulatory Gonsalo You Other [employer] Other Start: 12-05-2022 Office outpatient vi sit 25 minutes Gonsalo You [facility] [place] Start: 10-29-2022 End: 10-29-2022 ambulatory MD [place] Castañeda Work Phone: [facility] Work Phone: Start: 10-29-2022 End: 10-29-2022 Patient encounter procedure MD [place] Castañeda Work Phone: [facility]-X[facility] [address] Work Phone: Start: 10-25-2022 End: 10-25-2022 Patient encounter procedure MD [place] Castañeda Work Phone: [facility] Start: 07-15-2022 End: 07-16-[address] TAMERA RANDALL Facility: Start: 05-20-2022 End: 05-20-2022 ambulatory Gonsalo You Other [facility] [employer] Other Start: 05-20-2022 Telephone encounter Gnosalo You [facility] Start: 04-25-2022 End: 04-25-2022 ambulatory MD [place] Castañeda Work Phone: [facility] Work Phone: Start: 04-25-2022 End: 04-25-2022 Patient encounter procedure MD [place] Castañeda Work Phone: [facility]-Lab [address] Start: 02-26-2022 End: 02-26-[address] [place] CASTAÑEDA Facility:[facility] Start: 02-11-2022 End: 02-12-[address] [place] CASTAÑEDA Facility:[facility] Start: 01-31-2022 End: 01-31-2022 Admission to same day surgery center MD [place] Castañeda Work Phone: [facility] Start: 01-29-2022 End: 01-29-2022 Patient encounter procedure MD [place] Castañeda Work Phone: [facility]-Pre-Surgical Testing Start: 01-08-2022 End: 01-08-2022 ambulatory Jordan Gutierrez Other [employer] Other Start: 01-08-2022 Telephone encounter Jordan CHAMORRO G Reporting Developer Start: 12-10-2021 End: 12-10-2021 Patient encounter procedure MD [place] Castañeda [facility] Start: 11-29-2021 End: 11-29-2021 ambulatory Gonsalo You Other [employer] Other Start: 11-29-2021 Office outpatient vi sit 15 minutes Gonsalo You [facility] [place] Start: 11-21-2021 End: 11-22-2021 ambulatory GONSALO YOU Facility:[facility] Start: 07-28-2020 End: 07-28-2020 Patient encounter procedure [place] Castañeda [facility] Start: 07-05-2020 End: 07-05-2020 Patient encounter procedure [place] Castañeda -Lab [address] Start: 06-18-2018 End: 06-19-2018 Patient encounter procedure Juan Shirley Facility:[facility] Procedures Date Procedure Procedure Detail Performing Clinician Start: 02-07-2025 Screening mammograph y of bilateral breasts PHYSICIAN NO FAMILY Start: 01-08-2025 End: 01-08-2025 AEROBE ID + SUSCEPT Generic External Giancarlo a Provider Start: 01-08-2025 ANAEROBE IDENTIFICAT ION ONLY Generic External Data Provider Start: 01-08-2025 Urine culture PHYSICIAN NO FAMILY Start: 11-15-2024 [facility] CBC WITH PLATEL ET NO DIFFERENTIAL Generic External Data Provider Start: 11-07-2024 Urine culture PHYSICIAN NO FAMILY Start: 10-25-2024 Urnls dip stick/tabl et rgnt non-auto w/o micrscp [place] Castañeda MD Work Phone: Start: 08-11-2024 Injection single/functional consultant trigger point 3/> muscles Olive Gong DO [...] [facility] Start: 07-10-2026 End: 07-10-2026 Patient encounter procedure 07/10/2026 11:30 AM EST Office Visit [facility] [address] [place] [address] José Luis Flores MD [address] [place] [address] [facility] Start: 03-29-2025 Medicare Annual Well ness (AWV) Medicare Annual Wellness (AWV) [facility] Start: 03-07-2025 Influenza vaccination Influenza Vacc ine (#1) [facility] Start: 01-18-2025 End: 01-18-2025 Patient encounter procedure 01/18/2025 3:00 PM EDT Office Visit [facility] [address] [place] [address] [place] Castañeda MD [address] [facility] [address] [place] [address] (Fax) Encounter for examination following treatment at hospital; COVID-19; Acute UTI (urinary tract infection); Polypharmacy; Overweight (BMI 25.0-29.9) [facility] Comment on above: Encounter for examin ation following treatment at hospital; COVID-19; Acute UTI (urinary tract infection); Polypharmacy; Overweight (BMI 25.0-29.9) Start: 01-10-2025 End: 01-10-2025 Patient encounter procedure 01/10/2025 12:40 PM EDT Office Visit [facility] [address] [place] [id number] Maribeth Powers NP [address] [place] [address] [facility] Start: 01-08-2025 End: 01-08-2025 Urine culture [facility] Start: 01-08-2025 Bacteria identified in Urine by Culture Urine Culture [facility] Start: 12-07-2024 Adult BMI Screening Adult BMI Screen ing [facility] Start: 12-07-2024 Tobacco Screening Tobacco Screening [facility] Start: 11-08-2024 Urine culture [facility] Start: 11-07-2024 Bacteria identified in Urine by Culture Urine Culture [facility] Start: 11-02-2024 Adult BMI Screening Adult BMI Screen ing [facility] Start: 11-02-2024 Tobacco Screening Tobacco Screening [facility] Start: 10-25-2024 End: 10-25-2024 Patient encounter procedure 10/25/2024 9:15 AM EDT Office Visit [facility] [address] [place] [address] [place] Castañeda MD [address] [place] [address] Arrived [facility] Comment on above: Arrived Start: 10-21-2024 End: 10-21-2024 Patient encounter procedure [facility] Comment on above: Arrived Start: 10-14-2024 End: 10-14-2024 Patient encounter procedure 10/14/2024 12:40 PM EDT Office Visit [facility]RAF[facility] [address] [place] [id number] Maribeth Powers NP [address] [place], [place] [facility] Start: 08-19-2024 End: 08-19-2024 Patient encounter procedure 08/19/2024 12:40 PM EST Office Visit [facility] [place] [address] [place] [address] Maribeth Powers NP [address] [place], [place] [facility] [place] [address] Start: 08-11-2024 End: 08-11-2024 Patient encounter procedure 08/11/2024 1:15 PM EST Office Visit [facility] [place] [address] [phone] Olive Gong DO [address] [place] [address] Arrived [facility] Comment on above: Arrived Start: 06-23-2024 End: 06-23-2024 Patient encounter procedure 06/23/2024 3:45 PM EST Office Visit [facility] [place] [address] [place] [address] Olive Gong DO [address] [place] [address] [facility] [place] [facility] Start: 06-16-2024 End: 06-16-2024 Patient encounter procedure [facility] Comment on above: Cervical cancer scre ening Start: 06-08-2024 End: 12-07-2024 US.doppler Renal vessels - bilateral Vas renal artery duplex complete Vascular Ultrasound Routine Renal artery stenosis ([facility]) Expected: 06/08/2024 (Approximate), Expires: 12/07/2024 [facility] Work Phone: Comment on above: Expected: 06/08/2024 (Approximate), Expires: 12/07/2024 Start: 05-25-2024 End: 05-25-2024 Patient encounter procedure 05/25/2024 1:20 PM EST Office Visit [facility] [address] [address] Maribeth Powers, YOEL [address] [facility] Start: 05-24-2024 Influenza vaccination Influenza Vacc ine (#1) [facility] Comment on above: Postponed from 03/07 (Patient Refused) Start: 03-29-2024 End: 03-29-2024 Patient encounter procedure 03/29/2024 11:30 AM EDT Office Visit [facility] [address] [address] [place] [address] Hudson Castañeda MD [address] [place] [address] (Fax) Encounter for Medicare annual wellness exam; Advance directive discussed with patient; Encounter for screening for other disorder; Screening for alcohol problem; Polypharmacy; Overweight (BMI 25.0-29.9) [facility] Comment on above: Encounter for Medica re annual wellness exam; Advance directive discussed with patient; Encounter for screening for other disorder; Screening for alcohol problem; Polypharmacy; Overweight (BMI 25.0-29.9) Start: 03-07-2024 Influenza vaccination [facility] Start: 03-02-2024 End: 03-02-2024 Patient encounter procedure 03/02/2024 11:45 AM EDT Office Visit [facility] [address] [place] [address] BeltranOlive, [address] [place], [place] [id number] Arrived [facility] Comment on above: Arrived Start: 01-09-2024 Screening for malign ant neoplasm of breast Mammogram [facility] Start: 12-08-2023 End: 12-08-2023 Telemedicine consultation with patient 12/08/2023 4:05 PM EDT Telemedicine [facility] [address] [place] [address] [place] [address] Deb López MD [address] [facility] [address] [place] [address] [facility] Start: 12-03-2023 End: 11-02-2024 Vas mesenteric artery duplex complete Vas mesenteric artery duplex complete Vascular Ultrasound Routine Celiac artery stenosis ([facility]) Epigastric pain Expected: 12/03/2023 (Approximate), Expires: 11/02/2024 [facility] Work Phone: Comment on above: Expected: 12/03/2023 (Approximate), Expires: 11/02/2024 Start: 11-25-2023 End: 11-25-2023 Patient encounter procedure 11/25/2023 9:30 AM EDT Appointment [facility] [address] [place] [id number] Pricilla Lobato, PROP AND EFFECTS DESIGNER-CORPORATE RELATIONS MANAGER [address], [address] [place] [address] [facility] Start: 09-04-2023 COVID-19 Vaccine ( season) COVID-19 Vaccine ( season) [facility] Start: 07-02-2023 Medicare Annual Well ness (AWV) Medicare Annual Wellness (AWV) [facility] Start: 01-31-2022 [facility] Start: 2015 Fall Risk Screening Fall Risk Screen ing [facility] Start: 2000 Administration of varicella zoster vaccine Zoster (Shingles) Vaccine (1 of 2) [facility] Start: 1969 DTaP,Tdap and Td Vaccines (1 - Tdap) DTaP,Tdap and Td Vaccines (1 - Tdap) [facility] Start: 1968 Adult BMI Follow Up Plan Adult BMI F ollow Up Plan [facility] Start: 1962 Depression Screening Depression Scre ening [facility] Start: 1950 Medicare Annual Well ness Visit Medicare Annual Wellness Visit [facility] Start: 1950 Screening for malign ant neoplasm of colon [facility] AEROBE ID + SUSCEPT [facility] ANAEROBE IDENTIFICAT ION ONLY ANAEROBE IDENTIFICATION ONLY Lab Routine 01/08/2025 8:05 PM EDT [facility] IGP,rfx Aptima HPV a ll pth IGP,rfx Aptima HPV all pth Pathology and Cytology Routine Cervical cancer screening Ordered: 06/16/2024 [facility] Work Phone: Comment on above: Ordered: 06/16/2024 Renal function 1999 panel - Serum or Plasma [facility] Renal function 1999 panel - Serum or Plasma [facility] Urine culture [facility] Immunizations Immunization Date Immunization Notes Care Provider Fa cility 05-13-2024 Seasonal trivalent influenza vaccine, adjuvanted, preservative free Maribeth Powers NP Work Phone: [facility] 05-13-2024 influenza virus vacc ine, unspecified formulation Hudson Castañeda MD Work Phone: [facility] 04-21-2023 Influenza, Seasonal, Quadrivalent, Adjuvanted Olive Beltran DO Work Phone: [facility] 04-21-2023 influenza virus vacc ine, unspecified formulation Pricilla Lobato PROP AND EFFECTS DESIGNER-CORPORATE RELATIONS MANAGER Work Phone: [facility] 04-26-2022 Influenza, Seasonal, Quadrivalent, Adjuvanted Olive Beltran DO Work Phone: [facility] 04-21-2021 COVID-19 mRNA, Comir tera (Pfizer) MD Hudson Castañeda Work Phone: [facility] 04-21-2021 Influenza, High-dose Seasonal, Quadrivalent, Preservative Free Olive Beltran DO Work Phone: [facility] 08-26-2020 COVID-19 mRNA, Comir tera (Pfizer) MD Hudson Castañeda Work Phone: [facility] 08-05-2020 COVID-19 mRNA, Comir tera (Pfizer) MD Hudson Castañeda Work Phone: [facility] 07-07-2019 pneumococcal conjuga te vaccine, 13 valent Olive Beltran DO Work Phone: [facility] 05-10-2019 influenza, injectabl e, quadrivalent, preservative free Olive Beltran DO Work Phone: [facility] 07-09-2018 pneumococcal polysaccharide vaccine, 23 valent Olive Beltran DO Work Phone: [facility] 04-10-2018 influenza, high dose seasonal, preservative-free Olive Beltran DO Work Phone: [facility] 04-06-2018 pneumococcal conjuga te vaccine, 13 valent Olive Beltran DO Work Phone: [facility] 07-19-2017 pneumococcal conjuga te vaccine, 13 valent Olive Beltran DO Work Phone: [facility] 07-10-2017 pneumococcal conjuga te vaccine, 13 valent Olive Beltran DO Work Phone: [facility] 06-18-2017 pneumococcal conjuga te vaccine, 13 valent Olive Gong DO Work Phone: [facility] 04-17-2017 influenza, high dose seasonal, preservative-free Olive Gong DO Work Phone: [facility] 05-12-2015 influenza, injectabl e, quadrivalent, preservative free Olive Gong DO Work Phone: [facility] Payers Date Payer Category Payer Self-pay [id number] 2022 Unknown AARP AARP [id number] 2022-Present [address] [place] [address] [id number] 2015 Medicare [id number] 2015 Private Health Insurance [id number] 2015 Medicare [id number] 2013 Unknown [id number] 1959 Medicare [id number] 1959 Unknown [id number] 1950 Unknown [id number] 2.16.840.1.622763.3.579.2.7 27 1950 Unknown [id number] 2.16.840.1.665461.3.579.2.5 93 1950 Unknown [id number] 2.16.840.1.211835.3.579.2.5 93 1950 Unknown [id number] 2.16.840.1.079320.3.579.2.5 93 1950 Unknown [id number] 2.16.840.1.853973.3.579.2.5 93 1950 Unknown [id number] 2.16.840.1.935873.3.579.2.1 286 1950 Unknown [id number] 2.16.840.1.264979.3.579.2.1 286 1950 Unknown [id number] 2.16.840.1.520058.3.579.2.1 286 1950 Unknown [id number] 2.16.840.1.311739.3.579.2.1 286 1950 Unknown [id number] 2.16.840.1.881263.3.579.2.1 286 1950 Unknown [id number] 2.16.840.1.243606.3.579.2.1 259 1950 Unknown [id number] 2.16.840.1.966958.3.579.2.1 259 1950 Unknown [id number] 2.16.840.1.444664.3.579.2.1 259 1950 Unknown [id number] 2.16.840.1.303311.3.579.2.1 259 1950 Unknown [id number] 2.16.840.1.274553.3.579.2.1 259 1950 Unknown [id number] 2.16.840.1.749803.3.579.2.1 259 1950 Unknown [id number] 2.16.840.1.277946.3.579.2.1 259 1950 Unknown [id number] 2.16.840.1.975067.3.579.2.1 259 1950 Unknown [id number] 2.16.840.1.792524.3.579.2.1 259 1950 Unknown [id number] 2.16.840.1.127740.3.579.2.1 259 Unknown [id number] 2.16.840.1.762731.3.579.2.5 31 Unknown [id number] 2.16.840.1.127013.3.579.2.5 31 Unknown [id number] 2.16.840.1.709938.3.579.2.5 31 Unknown [id number] 2.16.840.1.229013.3.579.2.5 31 Unknown [id number] 2.16.840.1.988665.3.579.2.5 31 Social History Date Type Detail Facility Tobacco smoking stat us [facility] Unknown if ever smoked [facility] Start: 1950 Sex Assigned At Female [facility] Start: 12-30-2023 End: 01-17-2025 Sex Assigned At [facility] Start: 01-31-2022 End: 11-13-2023 Tobacco smoking status DEIS Ex-smoker (finding) [facility] Start: 07-07-1974 End: 01-04-1997 History of tobacco use Current smoker [facility] Start: 07-07-1974 End: 01-04-1997 History of tobacco use Cigarette Smoker [facility] Start: 12-31-2023 End: 01-17-2025 Cigarettes smoked current (pack per day) - Reported 1.5 [facility] Start: 12-08-2023 End: 12-31-2023 Tobacco use and exposure Smokeless tobacco non-user [facility] Start: 03-29-2024 End: 01-05-2025 Alcoholic beverage intake [facility] (finding) [facility] How often do you nee d to have someone help you when you read instructions, pamphlets, or other written material from your doctor or pharmacy [SILS] Never [facility] Within the last year , have you been afraid of your partner or ex-partner? No [facility] Do you belong to any clubs or organizations such as yarsanism groups, unions, fraternal or athletic groups, or school groups? Yes [facility] Are you now , , , , never or living with a partner? [facility] How often to you hav e a drink containing alcohol? Never [facility] How many standard dr inks containing alcohol do you have on a typical day? 1 or 2 [facility] Do you feel stress - tense, restless, nervous, or anxious, or unable to sleep at night because your mind is troubled all the time - these days [OSQ] Not at all [facility] (I/We) worried wheth er (my/our) food would run out before (I/we) got money to buy more. Never true [facility] Start: 12-09-2022 Education 13 [facility] Start: 12-09-2022 Alcohol Comment caffeine intake: 1-2 cups per day; coffee / 2-3 cups per day [facility] Start: 1950 Sex assigned at Not on file [facility] Start: 03-24-2021 Gender identity Identifies as female gender (finding) [facility] Start: 03-24-2021 Sexual orientation Heterosexual (finding) [facility] Start: 11-09-2024 End: 11-25-2024 Sex Female (finding) [facility] How often to you hav e a drink containing alcohol? Monthly or less [facility] Goals Date Patient Goal Desired Activity /State Functional Status Date Assessment Result Facility 01-18-2025 Patient Health Quest ionnaire 2 item (PHQ-2) [Reported] [facility] 01-05-2025 Patient Health Quest ionnaire 2 item (PHQ-2) [Reported] [facility] 10-25-2024 Patient Health Quest ionnaire 2 item (PHQ-2) [Reported] [facility] Clinical Notes 05-03-2021 to 01-18-2025 Hudson Castañeda MD - 01/18/2025 3:00 PM Scott Castañeda MD - 01/05/2025 9:30 AM EDT Note Date & Type Note Facility 01-18-2025 History of Presen t illness Narrative Images from the original note were not included. Patient ID: Sari Abbasi is a 74 y.o. female who presents for: ER Follow up UTI and Covid: Flowsheet Row Patient Outreach from 01/11/2025 in [facility] with Cassi Wright RN Hospital Information ED, Hospital or Prison Facility Discharge? ED Patient has been contacted within 2 days of being seen in the ED Yes Diagnosis Acute UTI, Covid 19 Discharge Date 01/08/25 Discharged To: Home Setting Discharge Hospital [facility] Engagement Call Start Time 920 Admission Date 01/08/25 Medications Discharge medications reviewed and reconciled from hospital? Yes Is the patient having any side effects they believe may be caused by any medication additions or changes? No Does the patient have all medications ordered at discharge? Yes Nursing Interventions No intervention needed Is the patient taking all medications as directed (includes completed medication regime)? Yes Appointments Does the patient have a primary care provider? Yes [01/18 at 3 pm] Nursing Interventions Verified appointment date/time/provider Does the patient have any upcoming specialty appointments? No Self Management Does patient have home health? no Patient Teaching Does the patient have access to their discharge instructions? Yes Nursing Interventions Reviewed instructions with patient What is the patient's perception of their health status since discharge? Improving Is the patient/caregiver able to teach back the hierarchy of who to call/visit for symptoms/problems? PCP, Specialist, Home Health nurse, Urgent Care, ED, 911 Yes Wrap Up Is the patient/caregiver familiar with Advance Care Planning? Yes Would the patient like more information on Advance Care Planning? No [has ERIK GREENE in chart] Wrap Up Additional Comments Pt presented to ER due to sudden fever. TEST: labs, CXR-clear, Urinalysis- positive for infection, Tested positive for COvid-19. No treatment for Covid 19 due to no respiratory symptoms. Rocephin IM for UTI and Rx for Bactrim DS BID x 10 days. Call End Time 930 Review of Systems Constitutional: Negative for chills and fever. Respiratory: Positive for shortness of breath. Negative for cough and wheezing. Cardiovascular: Negative for chest pain and palpitations. Gastrointestinal: Negative for abdominal pain. Genitourinary: Negative for frequency and urgency. Objective In general the patient is pleasant and in no acute distress. Shoddy bilateral anterior cervical adenopathy. No signs of respiratory distress. Patient is speaking full sentences. There are symmetrical breath sounds. No rhonchi or rales are appreciated. No wheezes. Skin is warm and dry 05/20/2024 10:37 AM 05/24/2024 1:35 PM 06/16/2024 11:24 AM 08/11/2024 1:16 PM 10/21/2024 1:36 PM 10/25/2024 9:14 AM 01/05/2025 9:41 AM Vitals BMI 25.7 kg/m2 25.75 kg/m2 25.4 kg/m2 25.84 kg/m2 25.84 kg/m2 25.84 kg/m2 BSA (m2) 1.96 m2 1.96 m2 1.95 m2 1.97 m2 1.97 m2 1.97 m2 Systolic 132 112 136 126 Diastolic 68 62 82 66 Heart Rate 68 64 69 SpO2 98 % 98 % Temp 98 F Height (in) 5' 9 5' 9 5' 9 5' 9 5' 9 Weight (lb) 174 174.38 172 175 175 175 Visit Report Report Report Report Report Report Report Allergies Allergen Reactions Pollen Extract Rosuvastatin myalgia Statins Other Muscle aches Current Outpatient Medications on File Prior to Visit Medication Sig Dispense Refill amLODIPine (Norvasc) 5 MG tablet Take 10 mg by mouth Daily aspirin 81 MG EC tablet Take 81 mg by mouth every 7 (seven) days (Patient not taking: Reported on 01/11/2025) Black Pepper-Turmeric (Turmeric Curcumin) 5-1000 MG capsule Cetirizine HCl (ZYRTEC ALLERGY PO) cholecalciferol (Vitamin D-3) 100 MCG (4000 UT) capsule Take by mouth in the morning. colchicine 0.6 MG tablet Take 0.6 mg by mouth Daily cyclobenzaprine (Flexeril) 10 MG tablet TAKE 1/2 TO 1 TABLET BY MOUTH EVERYDAY AT BEDTIME 90 tablet 1 esomeprazole (NexIUM) [address] capsule Take [...] Daily magnesium oxide 500 MG tablet Take 1 tablet by mouth at bedtime Misc Natural Products (FIBER 7 PO) if needed MULTIPLE VITAMIN IV 1 (one) time each day at the same time naproxen (Naprosyn) 250 MG tablet Take 250 mg by mouth Daily as needed for mild pain Potassium 99 MG tablet Take 1 tablet by mouth at bedtime Probiotic Product (CULTURELLE PROBIOTICS PO) psyllium (Metamucil) 48.57 % powder Take 3 g of fiber by mouth Daily as needed (constipation) sennosides (Senokot) 8.6 MG tablet Take 1 tablet by mouth Daily (Patient taking differently: Take 1 tablet by mouth Daily as needed for constipation) sulfamethoxazole-trimethoprim (Bactrim DS) 800-160 MG per tablet Take 1 tablet by mouth in the morning and 1 tablet in the evening. zolpidem (Ambien) 10 MG tablet Take 1 tablet (10 mg) by mouth as needed at bedtime for sleep 30 tablet 2 [DISCONTINUED] azelastine (Astelin) 0.1 % nasal spray Administer 1 spray into each nostril in the morning and 1 spray before bedtime. Use in each nostril as directed. 90 mL 1 [DISCONTINUED] desonide (DesOwen) 0.05 % cream Apply topically in the morning and before bedtime. [DISCONTINUED] polyethylene glycol, PEG, 3350 (MiraLax) 17 GM/SCOOP powder Take 17 g by mouth Daily No current facility-administered medications on file prior to visit. 1. COVID-19 Chronic problem, stable, slowly but surely getting over this. She is not convinced she had COVID-19 even the test was positive. She believes it was a false-positive test. I briefly discussed with her I doubt. 2. Acute UTI (urinary tract infection) I did review with her and I think the UTI diagnosis may have been a little bit over zealous. There just very mild changes and I would consider this more consistent with atrophic vaginitis. See below 3. Encounter for examination following treatment at hospital This visit is prompted as a transition of care. The patient has been contacted by phone within 2 business days of discharge or at least 2 unsuccessful attempts were made to contact the patient within the 2 business days. Any available documents including; emergency room note, visit notes, consults, and discharge summary or continuity of care documents were reviewed. Any laboratory investigation or diagnostic imaging that was ordered by outside physicians and available was obtained and reviewed. The transition of care note is reviewed. a krbh-gi-zate evaluation is done today. Medical decision making is complex in degree. 4. Polypharmacy Chronic problem The patient meets the criteria for polypharmacy; 5 or more prescriptions or multi-morbidity defined as 5 or more diagnoses. Polypharmacy can significantly increase the risk of adverse drug events and negatively impact adherence. Consideration of factors such as clinician agreement, patient perspective, and de-prescribing, as appropriate can improve patient outcomes while simplifying care. This requires longitudinal monitoring as there is at least a moderate risk of morbidity and requires at least a moderate degree of evaluation and management. 5. Overweight (BMI 25.0-29.9) Increase walking program 6. Atrophic vaginitis (Primary) After discussion with her she is noticing some vaginal changes. We have mutually agreed to trial of treatment vaginal estrogen. In prescribing a new medication consideration of [...] with the adjustment in their medication. - estradiol (Estrace) 0.1 MG/GM vaginal cream; Apply to vagina nightly for 1 week then every Friday/Friday/Friday. Dispense: 42.5 g; Refill: 5 documented in this encounter [facility] 01-05-2025 History of Presen t illness Narrative [...] any further problems. documented in this encounter [facility] 11-25-2024 Evaluation note Diagnosis Onset Date Resolution Anemia acute November 25, 2024 11:14am Chronic hyponatremia acute November 25, 2024 11:14am Hypercholesterolemia acute November 25, 2024 11:14am Renal artery stenosis acute November 25, 2024 11:14am Renovascular hypertension acute November 25, 2024 11:14am Rheumatoid arthritis acute November 25, 2024 11:14am Vitamin D deficiency acute November 25, 2024 11:14am Neck pain acute January 10, 2025 12:40pm KENNEDY (obstructive sleep apnea) acute January 10, 2025 12:40pm Primary insomnia acute January 12:40pm [facility] Work Phone: 1(281) 543-562005-04-2025 Evaluation note* Diagnosis Onset Date Resolution Status Admit Date Acute UTI acute November 07, 2024 11:42am [facility] Work Phone: 1(224) 918-733205-04-2025 Evaluation note* Diagnosis Onset Date Resolution Status [...] D deficiency acute November 25, 2024 11:14am [facility] Work Phone: 1(312) 741-110405-04-2025 Evaluation note* Diagnosis Onset Date Resolution Status [...] D deficiency acute November 25, 2024 11:14am Primary insomnia acute January 12:40pm [facility] Work Phone: 1(430) 767-736704-21-2025 History of Present illness Narrative* Hudson Castañeda [...] One tablet twice daily. documented in this encounterSaint John's Health [id number] History of Present illness Narrative* Maribeth Powers NP - 10/21/2024 1:40 PM EDT Images from [...] CATARACT EXTRACTION COLONOSCOPY COLONOSCOPY 01/2022 Dr. Gutierrez [facility] DILATION AND CURETTAGE 1992;11/11/2017 EYE SURGERY 10/2016 bilateral - lid removal, excess skin FOOT SURGERY Bilateral 11/11/2017 FOOT SURGERY right OTHER SURGICAL HISTORY 04/2017 right foot 1st MYLES - Dr. Quick TONSILLECTOMY 1956 VAGINAL DELIVERY x3 Family History Problem Relation [...] po at bedtime Continue flexeril 10 mg /2-1 at bedtime OARRS reviewed with refills and [...] was counseled on the risks of stroke, [place], and sudden with KENNEDY, along with the [...] to clinic: 3 months documented in this [facility]04-01-2025 Telephone encounter Note* Telephone Encounter - Rony Bear MA - 10/05/2024 12:07 PM EDT Patient calls for refill of Ambien medication is pending. [facility] [id number] Miscellaneous Notes* Telephone Encounter - Rony Bear MA - 10/05/2024 12:07 PM EDT Patient calls for refill of Ambien medication is pending. documented in this encounterSaint John's Health [id number] History of Present illness Narrative* Olive Gong [...] given by the patient. documented in this encounterSaint John's Health [id number] Telephone encounter Note* Telephone Encounter - Vera Llamas MA - 07/08/2024 11:11 AM EST Patient calls requesting reill of [facility] [place] [facility] [id number] Miscellaneous Notes* Telephone Encounter - Vera Llamas MA - 07/08/2024 11:11 AM EST Patient calls [facility] [place] documented in this encounterSaint John's Health [id number] History of Present illness Narrative* José Luis [...] Obstetric Comments Pap: 06/27-Neg CANDICE Mammo: 01/26-Neg ([facility]) DEXA: 07/27 Menopausal Medication and Allergies Medication Documentation Review Audit Reviewed by Antonia Escobar MA (Dry Sand [employer]older) on 06/16/24 at 1130 Medication Order Taking? Sig Documenting Provider Last Dose Status amLODIPine (Norvasc) 5 MG tablet [id number] No Take 10 mg by mouth Daily Historical Provider, Taking Active aspirin 81 MG EC tablet [id number] Take 81 mg by mouth every 7 (seven) days José Luis Flores MD Active azelastine (Astelin) 0.1 % nasal spray [id number] No Administer 1 spray into each nostril in the morning and 1 spray before bedtime. Use in each nostril as directed. Hudson Castañeda MD Taking Hcqbecy35/14/24 8860 Black Pepper-Turmeric (Turmeric Curcumin) 5-1000 MG capsule [id number] No José Luis Flores MD Taking Active Cetirizine HCl (ZYRTEC ALLERGY PO) [id number] No José Luis Flores MD Taking Active cholecalciferol (Vitamin D-3) 100 MCG (4000 UT) capsule [id number] No Take by mouth Daily José Luis Flores MD Taking Active colchicine 0.6 MG tablet [id number] No Take 0.6 mg by mouth in the morning. José Luis Flores MD TakingActive cyclobenzaprine (Flexeril) 10 MG tablet [id number] Take 0.5-1 tablets (5-10 mg) by mouth at bedtime Olive Gong DO Active desonide (DesOwen) 0.05 % cream [id number] No Apply topically 2 (two) times a day. Historical ProviderMD Taking Active esomeprazole (NexIUM) [address] capsule [id number] No Take 20 mg by mouth in the morning. Take before meals. Historical Provider, Taking Active fluticasone (Flonase) 50 MCG/ACT nasal spray [id number] No Administer 1 spray into each nostril Dailyas needed for rhinitis Hudson Castañeda MD Taking Active gabapentin (Neurontin) 100 MG capsule [id number] No 1 po daily -bid Olive Gong DO Taking Active L-lysine 1000 MG tablet [id number] No Take by mouth Daily José Luis Flores MD Taking Active lidocaine (Lidoderm) 5 % patch [id number] No Apply 1 patch topically if needed. Historical ProviderMD Taking Active losartan (Cozaar) 100 MG tablet [id number] No Take 100 mg by mouth in the morning. Historical ProviderMD Taking Active magnesium oxide 500 MG tablet [id number] No Take by mouth José Luis Flores MD Taking Active Misc Natural Products (FIBER 7 PO) [id number] No if needed Historical ProviderMD Taking Active MULTIPLE VITAMIN IV [id number] No 1 (one) time each day at the same time. Historical ProviderMD Taking Active naproxen (Naprosyn) 250 MG tablet [id number] No Take 250 mg by mouth Daily as needed for mild pain Hudson Castañeda MD Taking Active polyethylene glycol, PEG, 3350 (MiraLax) 17 GM/SCOOP powder [id number] No Take 17 g by mouth Daily Historical Provider, Taking Active Probiotic Product (CULTURELLE PROBIOTICS PO) [id number] No José Luis Flores MD Taking Active sennosides (Senokot) 8.6 MG tablet [id number] No Take 1 tablet by mouth Daily Hudson Castañeda MD Taking Active zolpidem (Ambien) 10 MG tablet [id number] TAKE 1 TABLET (10 MG) BY MOUTH NEEDED AT BEDTIME FOR SLEEP Olive Gong DO Active Allergies Allergen Reactions Pollen Extract Rosuvastatin [...] CATARACT EXTRACTION COLONOSCOPY COLONOSCOPY 01/2022 Dr. Gutierrez [facility] DILATION AND CURETTAGE 1992;11/11/2017 EYE SURGERY 10/2016 [...] placed in this encounter. documented in this encounterSaint John's Health [id number] History of Present illness Narrative* Hudson Castañeda [...] of evaluation and management. documented in this encounterSaint John's Health SystemOmnecaakko85-15-5087 Telephone encounter Note* Telephone Encounter - Tereso Vásquez MA - 04/12/2024 9:14 AM EDT Oarrs reviewed 03.15.24 [facility] [id number] Miscellaneous Notes* Telephone Encounter - Tereso Vásquez MA - 04/12/2024 9:14 AM EDT Oarrs reviewed 03.15.24 documented in this encounterSaint John's Health SystemTjcabbdsuw14-49-2684 History of Present illness Narrative* Hudson Castañeda [...] Hudson Castañeda MD as PCP - ACO Aneesh Stevens MD as Referring Physician (Nephrology) Dr. 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 analyst Hearing Screening: Not done Cognitive Screening Self Assessment: No concerns rasied by family members, friends, or caretakers Three Word Registration: Banana, [place], Chair Clock Drawing: Normal Clock - 2 Three Word Recall: 1/3 words correct - 1 Total Score (0-5 Points): 3 Pain Assessment Pain Score: 1 Advance Care Planning Do you have a living will?: Yes Do you have a medical power of civil attorney?: Yes Who is your medical power of civil attorney?: Khadar Wendilouisa Objective : BP 128/78 Pulse 70 Ht [...] through a living will, durable power of civil attorney for healthcare, or other advanced directives. [...] on March 29, 2024 documented in this encounterSaint John's Health [id number] History of Present illness Narrative* Olive Gong, [...] Allergic rhinitis unspecified Anemia Anxiety Anxiety state ([facility]) unspecified Back pain 07/09/2018 Blood infection 2012 [...] CATARACT EXTRACTION COLONOSCOPY COLONOSCOPY 01/2022 Dr. Gutierrez [facility] DILATION AND CURETTAGE 1992;11/11/2017 EYE SURGERY 10/2016 bilateral - lid removal, excess skin FOOT SURGERY Bilateral 11/11/2017 FOOT SURGERY right OTHER SURGICAL HISTORY 04/2017 right foot 1st MYLES Quick TONSILLECTOMY 11/11/2017 VAGINAL DELIVERY x3 Family [...] was counseled on the risks of stroke, [place], and sudden with KENNEDY, along with the [...] to clinic: 3 months documented in this encounterSaint John's Health [id number] History of Present illness Narrative* Deb López [...] PM EDT 27m 34s documented in this encounterBar[facility] History of Present illness Narrative* Pricilla Lobato APRN-CORPORATE RELATIONS MANAGER - 11/03/2023 1:15 PM EDT Images [...] Active Problem List Diagnosis Renal artery stenosis ([facility]) BP 140/80 (BP Site: Left Arm, BP Postition: Sitting, BP CUFF SIZE: M (9-13 inches)) Pulse 68 Resp 18 Ht 175.3 cm (5' 9 ) Wt 78.3 kg (172 lb 9.6 oz) BMI 25.49 kg/m Past Medical History: Diagnosis Date Chronic rheumatic arthritis ([facility]) Hypertension Renal artery stenosis ([facility]) Past Surgical History: Procedure Laterality Date FOOT [...] Encounter Diagnoses Name Primary? Celiac artery stenosis ([facility]) Yes Epigastric pain Plan of care: Sari [...] Bentley APRN-CNP 11/03/23 1337 documented in this encounterMercy Health Clermont HospitaliPAYst Beaumont HospitalVxgwya32-87-3248 Evaluation note* Encounter Date Diagnosis Assessment Notes [...] within the goal. Will check Iron studies. [employer] Other 01-13-2023 NoteHISTORY: Knee pain TECHNIQUE: Duplex [...] and signed by Juan Wan on 07/19/2022 1253[facility] Lmqhnibrep65-21-9631 [facility]Mary[facility] Evaluation note* Encounter Date Diagnosis Assessment Notes Treatment Notes Treatment Clinical Notes Jan, Screening for colon cancer (ICD-10 - Z12.11) [employer] Other 05-26-2022 Evaluation note* Encounter Date Diagnosis [...] Colonoscopy . Advised her to schedule it [employer] Other 10-28-2021 NoteHNO ID: [id number] Author: Jose G Wells MD Service: Vascular Surgery Author Type: Physician Type: Progress Notes Filed: 05/07/2021 7:30 AM Note Text: NAME: SARI ABBASI [facility] NO: [id number] DATE OF SERVICE: 05/03/2021 DATE OF : [...] She has had an ultrasound done at [facility] that was done in February which [...] Jose G Wells M.D. SPL/089 Audio #: [id number] Date Dictated: 04/19/2021 23:17:18 Date Typed: 05/03/2021 14:30:58 Date Revised: 05/03/2021 16:03:18[facility]10-28-2021 NoteHNO ID: [id number] Author: Jose G Wells MD Service: ? Author Type: Physician Type: Progress Notes Filed: 05/03/2021 11:53 AM Note Text: Here for f/u of unilateral renal artery stenosis with well-controlled hypertension Heart , Vascular and Thoracic [place] DEPARTMENT OF VASCULAR SURGERY OUTPATIENT VISIT DATE [...] TIME OF SERVICE: 11:20 AM Medical Decision MakingGalion HospitalEvaluation noteNo assessment information availableKettering Health [facility]tr Work Phone: evaluation noteNo InformationNort StormMQ Other Evaluation note* Diagnosis Onset Date Resolution Status Chronic hyponatremia acute Hypercholesterolemia acute Renal artery stenosis acute Renovascular hypertension ac [place] Rheumatoid arthritis acute Vitamin D deficiency acute [facility] Work Phone: evaluation note* Diagnosis Onset Date Resolution Status Chronic hyponatremia acute Hypercholesterolemia acute Renal artery stenosis acute Renovascular hypertension [place] Rheumatoid arthritis acute Vitamin D deficiency acute Sciatica acute [facility] Work Phone: Evaluation note* Diagnosis Primary [...] Primary Routine general medical examination at a [place] care facility Cervical cancer screening Screening for [...] Abdominal pain, epigastric documented in this encounter [facility]* Diagnosis Renal artery stenosis (CMS-HCC)- Primary Atherosclerosis of renal artery documented in this encounter [facility]* Diagnosis Primary insomnia Persistent disorder of initiating or maintaining sleep documented in this encounter [facility]* Diagnosis Neck pain- Primary Cervicalgia Low back pain at multiple sites KENNEDY (obstructive sleep apnea) Obstructive sleep apnea (adult) (pediatric) Primary insomnia Persistent disorder of initiating or maintaining sleep documented in this encounter [facility]* Diagnosis Acute cystitis with hematuria- Primary Frequent urination Urinary frequency documented in this encounter [facility]* Diagnosis Skin tear of forearm without complication, initial encounter documented in this encounter [facility]* Diagnosis COVID-19- Primary Acute UTI (urinary tract infection) Encounter for examination following treatment at hospital Polypharmacy Issue of repeat prescriptions Overweight (BMI 25.0-29.9) Overweight Atrophic vaginitis Postmenopausal atrophic vaginitis documented in this encounter [facility] HealthcareHistory and physical note Author Jordan Gutierrez [facility] January 31, 2022 8:44am Note Date/Time January 31, 2022 8:44 am [facility] [address] [place] [address] Gastroenterology H&P Signed Patient: Sari Abbasi MR#: [id number] : 1950 Acct:[id number] Age/Sex: 71 / F Adm Date: 2 Loc: Room: Type: [facility] Attending Dr: Jordan Gutierrez MD Copies [...] <Electronically signed by Jordan Gutierrez MD> 01/31/22843 [facility] Work Phone: History general Narrative - Reported* [...] Hospitalization History SCIATIC RIGHT SIDE PAIN 05/2018 [employer] Other History general Narrative - Reported* Type [...] Hospitalization History SCIATIC RIGHT SIDE PAIN 05/2018 [employer] Other InstructionsNot on filedocumented in this encounter [employer] SystemInstructionsNot on filedocumented in this encounter [facility] [employer] SystemReason for referral (narrative)No reason for referral information availableKettering Health [facility]tr Work Phone: Reason for visit Narrative* Other Medical (Routine) - Closed Specialty Diagnoses / Procedures Referred By Contac t Referred To Contact Neurology Diagnoses Neck pain Procedures Trigger Point Injection: right semispinalis capitis, left semispinalis capitis, right splenius capitis, left splenius capitis, right upper trapezius, left upper trapezius Olive Gong DO [address] [place] [address] Phone: tel: fax: Olive Gong DO [address] [place] [address] Phone: tel: fax: Referral ID Status Reason Start Date Expiration Date Visits Re quested Visits Authorized [id number] Closed 08/11/2024 02/07/2025 1 1 [facility] Summary Purpose Family History No Family [...] Documents on File Type Date Recorded Patient Doctorate Of Chiropractic Expl anation Power of Associate Programmer Analyst 08/25/2024 3:53 PM 10-08 Living Will Advance Directives and Living Will 08/25/2024 3:49 PM 2022-10-08 Living Wi ll Documents on File Type Date Recorded Patient Doctorate Of Chiropractic Expl anation Power of Associate Programmer Analyst 08/25/2024 3:53 PM 10-08 Living Will Advance [...] D deficiency November 25, 2024 11:1 4am Chief Complaint Admit Date Dysuria November 07, 2024 11:42a m R30.0 November 07, 2024 12:19p m RENAL 1 YR F/U November 25, 2024 11:14 am soof January 03, 2025 11:4 2am Unknown January 08, 2025 8:57p m Chief Complaint Admit Date Dysuria November 07, 2024 11:42a m R30.0 November 07, 2024 12:19p m RENAL 1 YR F/U November 25, 2024 11:14 am soof January 03, 2025 11:4 2am Unknown January 08, 2025 8:57p m 3 month follow up January 10, 2025 12:40 pm Reason for Visit Admit Date Acute UTI November 07, 2024 11:42a m Anemia November 25, 2024 11:14 am Chronic hyponatremia November 25, 2024 11:1 4am Hypercholesterolemia November 25, 2024 11:1 4am Renal artery stenosis November 25, 2024 11: 14am Renovascular hypertension November 25, 2024 11:14am Rheumatoid arthritis November 25, 2024 11:1 4am Vitamin D deficiency November 25, 2024 11:1 4am Primary insomnia January 10, 2025 12:40 pm Chief Complaint Admit Date RENAL 1 YR F/U November 25, 2024 11:14 am soof January 03, 2025 11:4 2am Unknown January 08, 2025 8:57p m 3 month follow up January 10, 2025 12:40 pm Screening February 07, 2025 11: 36am Reason for Visit Admit Date Anemia November 25, 2024 11:14 am Chronic hyponatremia November 25, 2024 11:1 4am Hypercholesterolemia November 25, 2024 11:1 4am Renal artery stenosis November 25, 2024 11: 14am Renovascular hypertension November 25, 2024 11:14am Rheumatoid arthritis November 25, 2024 11:1 4am Vitamin D deficiency November 25, 2024 11:1 4am Neck pain January 10, 2025 12:40 pm KENNEDY (obstructive sleep apnea) January 10, 2025 12:40pm Primary insomnia January 10, 2025 12:40 pm Chief Complaint Admit Date RENAL 1 YR F/U November 25, 2024 11:14 am soof January 03, 2025 11:4 2am Unknown January 08, 2025 8:57p m 3 month follow up January 10, 2025 12:40 pm Screening February 07, 2025 11: 36am Injection February 08, 2025 4:4 0pm Assessments No Assessments Information AvailableNo Assessments Information Available Reason for Referral Specialty Diagnoses / Procedures Referred By Contac t Referred To Contact Diagnoses Renal artery stenosis ([facility]) Procedures Vas renal artery duplex complete Deb López MD [address] [facility] [address] [place] [address] Referral ID Status Reason Start Date Expiration Date V isits Requested Visits Authorized [id number] Pending Review 12/08/2023 12/07/2024 1 1 Specialty Diagnoses / Procedures Referred By Contac t Referred To Contact Diagnoses Celiac artery stenosis (CMS-HCC) Epigastric pain Procedures Vas mesenteric artery duplex complete Pricilla Lobato, PROP AND EFFECTS DESIGNER-CORPORATE RELATIONS MANAGER [address] [facility], [address] [place] [address] Referral ID Status Reason Start Date Expiration Date V isits Requested Visits Authorized [id number] Pending Review 11/03/2023 11/02/2024 1 1 Additional Source Comments INFORMATION SOURCE (unrecogn ized section and content) DATE CREATED AUTHOR 06/21/2018 [facility] DATE CREATED AUTHOR AUTHOR'S ORGANIZ ATION 08/11/2021 [facility] DATE CREATED AUTHOR AUTHOR'S ORGANIZ ATION 07/18/2022 [facility] pital DATE CREATED AUTHOR AUTHOR'S ORGANIZ ATION 07/19/2022 [facility] dical Specialist DATE CREATED AUTHOR AUTHOR'S ORGANIZ ATION 01/04/2024 [facility] DATE CREATED AUTHOR AUTHOR'S ORGANIZ ATION 06/17/2024 [facility] DATE CREATED AUTHOR AUTHOR'S ORGANIZ ATION 01/22/2025 [facility] dical Specialists EPIC DATE CREATED AUTHOR AUTHOR'S ORGANIZ ATION 02/15/2025 [facility] y[facility] REASON FOR VISIT (unrecogniz ed section and [...] Reason Comments UTI Reason Comments skin tear Reason Comments Follow-up Care Teams (unrecognized sec tion and content) Team Status: Active Member Role Status Dates Hudson Castañeda MD Primary Care Provider Active Team Status: Active Member Role Status Dates PHYSICIAN NO FAMILY Primary Care Provider Active Start: November 15, 2024 Gonsalo Stevens MD Attending Provider Active Start : November 15, 2024 Team Status: Inactive Member Role Status Dates Gonsalo Stevens MD Attending Provider Active Start [...] January 03, 2025 End: January 03, 2025 Team Status: Inactive Member Role Status Dates Gene Lyn MD Attending Provider Active St art: January 08, 2025 End: January 08, 2025 Team Status: Inactive Member Role Status Dates Maribeth Powers APRN Attending Provider Active Start: January 10, 2025 End: January 10, 2025 NON STAFF Primary Care Provider Active Start: January 10, 2025 End: January 10, 2025 Team Status: Inactive Member Role Status Dates Hudson Castañeda MD Primary Care Provider Active Start: February 07, 2025 End: February 07, 2025 Referral Self Attending Provider Active Start: A ugpawel 2024 End: February 07, 2025 Team Status: Inactive Member Role Status Dates Hudson Castañeda MD Primary Care Provider Active Jordan Gutierrez MD Attending Provider Active Team Status: Inactive Member Role Status Dates Hudson Castañeda MD Primary Care Provider Active Kamari Virk MD Attending Provider Active José Luis Flores MD Referring Provider Active Team Status: Inactive Member Role [...] 2024 Referral Self Attending Provider Active Start: A ugust 2023 End: February 05, 2024 Manager Fast Food Relationship Specialty Start Date End Date Hudson Castañeda MD [address] [place] [address] PCP - General 12/19/22 Hudson Castañeda MD [address] [facility] [place], [place] [phone] (Fax) PCP - ACO Reach 09/05/23 Gonsalo Stevens MD [address] [facility] [address] [place] [address] Referring Physician Nephrology 11/17/23 Team Status: Inactive Member Role Status Dates Hudson Castañeda MD Primary Care Provider Active Start: April 23, 2024 End: April 23, 2024 Tamera Randall MD Attending Provider Active St art: April 23, 2024 End: April 23, 2024 Manager Fast Food Relationship Specialty Start Date End Date Hudson Castañeda MD [address] [place] [address] (Fax) PCP - General 12/19/22 Hudson Castañeda MD [address] [place] [phone] (Fax) PCP - ACO Reach 09/05/23 Gonsalo Stevens MD [address] [facility] [address] [place] [address] Referring Physician Nephrology 11/17/23 Manager Fast Food Relationship Specialty Start Date End Date Hudson Castañeda MD [address] [place] [address] (Fax) PCP - General 12/19/22 Hudson Castañeda MD [address] [place] [address] (Fax) PCP - ACO Reach 09/05/23 Gonsalo Stevens MD [address] [place] [address] Referring Physician Nephrology 11/17/23 Manager Fast Food Relationship Specialty Start Date End Date Hudson Castañeda MD [address] [place] [address] (Fax) PCP - General 12/19/22 Hudson Castañeda MD [address] [place] [address] (Fax) PCP - ACO Reach 09/05/23 Gonsalo Stevens MD [address] [place] [address] Referring Physician Nephrology 11/17/23 Manager Fast Food Relationship Specialty Start Date End Date Hudson Castañeda MD [address] [place] [address] (Fax) PCP - General 12/19/22 Hudson Castañeda MD [address] [place] [address] (Fax) PCP - ACO Reach 09/05/23 Gonsalo Stevens MD [address] [place] [address] Referring Physician Nephrology 11/17/23 Manager Fast Food Relationship Specialty Start Date End Date Hudson Castañeda MD [address] [place] [address] (Fax) PCP - General 12/19/22 Hudson Castañeda MD [address] [place] [address] (Fax) PCP - ACO Reach 09/05/23 Gonsalo Stevens MD [address] [place] [address] Referring Physician Nephrology 11/17/23 Manager Fast Food Relationship Specialty Start Date End Date Hudson Castañeda MD [address] [place] [facility] [place] [address] (Fax) PCP - General 12/19/22 Hudson Castañeda MD [address] [place] [address] (Fax) PCP - ACO Reach 09/05/23 Gonsalo Stevens MD [address] [place] [address] Referring Physician Nephrology 11/17/23 Manager Fast Food Relationship Specialty Start Date End Date Hudson Castañeda MD [address] [place] [facility] [place] [address] (Fax) PCP - General 12/19/22 Hudson Castañeda MD [address] [place] [address] (Fax) PCP - ACO Reach 09/05/23 Gonsalo Stevens MD [address] [place] [address] Referring Physician Nephrology 11/17/23 Manager Fast Food Relationship Specialty Start Date End Date Hudson Castañeda MD [address] [facility] [place] [address] (Fax) PCP - General 12/19/22 Hudson Castañeda MD [address] [facility] [place] [address] (Fax) PCP - ACO Reach 09/05/23 Gonsalo Stevens MD [address] [place] [address] Referring Physician Nephrology 11/17/23 Manager Fast Food Relationship Specialty Start Date End Date Hudson Castañeda MD [address] [facility] [place] [address] (Fax) PCP - General 12/19/22 Hudson Castañeda MD [address] [facility] [place] [address] (Fax) PCP - ACO Reach 09/05/23 Gonsalo Stevens MD [address] [place] [address] Referring Physician Nephrology 11/17/23 Manager Fast Food Relationship Specialty Start Date End Date Hudson Castañeda MD [address] [place] [address] (Fax) PCP - General 12/19/22 Hudson Castañeda MD [address] [place] [address] (Fax) PCP - ACO Reach 09/05/23 Gonsalo Stevens MD [address] [place] [address] Referring Physician Nephrology 11/17/23 Manager Fast Food Relationship Specialty Start Date End Date Hudson Castañeda MD [address] [place] [address] (Fax) PCP - General 12/19/22 Hudson Castañeda MD [address] [place], [place] [phone] PCP - ACO Reach 09/05/23 Gonsaol Stevens MD [address] [place] [address] Referring Physician Nephrology 11/17/23 Olive Gong DO [address] [place] [phone] Referring Physician Neurology 08/11/24 Manager Fast Food Relationship Specialty Start Date End Date Hudson Castañeda MD [address] [place] [address] (Fax) PCP - General 12/19/22 Hudson Castañeda MD [address] [place] [address] PCP - ACO Reach 09/05/23 Gonsalo Stevens MD [address] [place] [address] Referring Physician Nephrology 11/17/23 Olive Gong DO [address] [place] [address] Referring Physician Neurology 08/11/24 Manager Fast Food Relationship Specialty Start Date End Date Hudson Castañeda MD [address] [place] [address] (Fax) PCP - General 02/06/18 Manager Fast Food Relationship Specialty Start Date End Date Hudson Castañeda MD [address] [place] [address] (Fax) PCP - General 02/06/18 Manager Fast Food Relationship Specialty Start Date End Date Hudson Castañeda MD [address] [place] [address] (Fax) PCP - General 12/19/22 Hudson Castañeda MD [address] [place] [address] (Fax) PCP - ACO Reach 09/05/23 Gonsalo Stevens MD [address] [phone] Referring Physician Nephrology 11/17/23 Olive Gong DO [address] [place] [phone] Referring Physician Neurology 08/11/24 Manager Fast Food Relationship Specialty Start Date End Date Hudson Castañeda MD [address] [place] [address] (Fax) PCP - General 12/19/22 Hudson Castañeda MD [address] [place] [address] PCP - ACO Reach 09/05/23 Gonsalo Stevens MD [address] [facility] [address] [place] [address] Referring Physician Nephrology 11/17/23 Olive Gong DO [address] [place] [phone] Referring Physician Neurology 08/11/24 Manager Fast Food Relationship Specialty Start Date End Date Hudson Castañeda MD [address] [facility] [address] [place] [address] PCP - General 12/19/22 Hudson Castañeda MD [address] [facility] 100 [place] [address] PCP - ACO Reach 09/05/23 Gonsalo Stevens MD [address] [place] [address] [place] [address] Referring Physician Nephrology 11/17/23 Olive Gong DO [address] [place] [phone] Referring Physician Neurology 08/11/24 Maribeth Powers NP [address] [place], [place] Nurse Practitioner Neurology 10/21/24 Manager Fast Food Relationship Specialty Start Date End Date Hudson Castañeda MD [address] [place] [address] PCP - General 12/19/22 Hudson Castañeda MD [address] [place] [address] PCP - ACO Reach 09/05/23 Gonsalo Stevens MD [address] [place] [address] Referring Physician Nephrology 11/17/23 Olive Gong DO [address] [place] [address] Referring Physician Neurology 08/11/24 Maribeth Powers NP [address] [place] [address] Nurse Practitioner Neurology 10/21/24 Manager Fast Food Relationship Specialty Start Date End Date Hudson Castañeda MD [address] [place] [address] PCP - General 12/19/22 Hudson Castañeda MD [address] [place] [address] PCP - ACO Reach 09/05/23 Gonsalo Stevens MD [address] [address] [place] [address] Referring Physician Nephrology 11/17/23 Oliev Gong DO [address] [place] [phone] Referring Physician Neurology 08/11/24 Maribeth Powers, YOEL [address] [place] [address] Nurse Practitioner Neurology 10/21/24 Team Status: Inactive Member Role Status Dates Hudson Castañeda MD Primary Care Provider Active Start: November 07, 2024 End: November 07, 2024 Kyra Gomes APRN Attending Provider Active Start: November 07, 2024 End: November 07, 2024 Team Status: Inactive Member Role Status Dates Kyra Gomes APRN Attending Provider Active Start: November 07, 2024 End: November 07, 2024 Manager [employer] Relationship Specialty Start Date End Date Hudson Castañeda MD [address] [place] [address] (Fax) PCP - General 12/19/22 Hudson Castañeda MD [address] [place] [address] (Fax) PCP - ACO Reach 09/05/23 Gonsalo Stevens MD [address] [place] [address] Referring Physician Nephrology 11/17/23 Olive Gong DO [address] [place] [address] Referring Physician Neurology 08/11/24 Maribeth Powers NP [address] [place], [place] Nurse Practitioner Neurology 10/21/24 Team Status: Inactive Member Role Status Dates Kyra Gomes APRN Attending Provider Active Start: November 07, 2024 End: November 07, 2024 PHYSICIAN NO FAMILY Primary Care Provider Active Start: November 07, 2024 End: November 07, 2024 Manager [employer] Relationship Specialty Start Date End Date Hudson Castañeda MD [address] [place] [address] (Fax) PCP - General 12/19/22 Hudson Castañeda MD [address] [place] [address] (Fax) PCP - ACO Reach 09/05/23 Gonsalo Stevens MD [address] [place] [address] Referring Physician Nephrology 11/17/23 Olive Gong DO [address] [place] [address] Referring Physician Neurology 08/11/24 Maribeth Powers NP [address] [place] [address] Nurse Practitioner Neurology 10/21/24 Manager [employer] Relationship Specialty Start Date End Date Hudson Castañeda MD [address] [place] [address] (Fax) PCP - General 12/19/22 Hudson Castañeda MD [address] [place] [address] (Fax) PCP - ACO Reach 09/05/23 Gonsalo Stevens MD [address] [place] [address] Referring Physician Nephrology 11/17/23 Olive Gong DO [address] [place] [address] Referring Physician Neurology 08/11/24 Maribeth Powers NP [address] [place] [address] Nurse Practitioner Neurology 10/21/24 Team Status: Active Member Role Status Dates NON STAFF Primary Care Provider Active Manager [employer] Relationship Specialty Start Date End Date Hudson Castañeda MD [address] [place] [address] (Fax) PCP - General 12/19/22 Hudson Castañeda MD [address] [place] [address] (Fax) PCP - ACO Reach 09/05/23 Gonsalo Stevens MD [address] [place] [address] Referring Physician Nephrology 11/17/23 Olive Gong DO [address] [place] [phone] Referring Physician Neurology 08/11/24 Maribeth Powers NP [address] [place] [phone] Nurse Practitioner Neurology 10/21/24 Cassi Wright, RN [address] [place] [address] [place] [address] Registered Nurse Family Medicine 01/11/25 Manager [employer] Relationship Specialty Start Date End Date Hudson Castañeda MD [address] [place] [address] (Fax) PCP - General 12/19/22 Hudson Castañeda MD [address] [place] [address] (Fax) PCP - ACO Reach 09/05/23 Gonsalo Stevens MD [address] [facility] [address] [place] [address] Referring Physician Nephrology 11/17/23 Olive Gong DO [address] [place] [address] Referring Physician Neurology 08/11/24 Maribeth Powers NP [address] [place] [address] Nurse Practitioner Neurology 10/21/24 Cassi Wright, RN [address] [facility] [address] [place] [address] Registered Nurse Family Medicine 01/11/25 Team Status: Inactive Member Role Status Dates Hudson Castañeda MD Primary Care Provider Active Start: February 08, 2025 End: February 08, 2025 Olive Gong DO Attending Provider Active Sta rt: February 08, 2025 End: February 08, 2025 Goals (unrecognized section and content) Goals may [...] BE BASED ON THE PRIMARY CLINICAL RECORDS. [facility] [employer] [facility]. provides no warranty or guarantee of the accuracy or completeness of information in this document.
--- NOTE | 2025-03-14 21:37 | ED.DIZZY1 ---
HPI - Dizziness General Chief Complaint: Dizziness Stated Complaint: BLOOD PRESSURE/ DIZZY Time Seen by Provider: 03/14/25 21:27 Source: patient Mode of arrival: walk-in Limitations: no limitations History of Present Illness HPI Narrative: complains of dizziness that started around 8pm. room spinning when she closes her eyes. Admits it has improved. Also swelling of her left leg today. States she noticed it after she got home tonight after shopping . the swelling has decreased. No associated pain or fever. sl. headache Related Data Home Medications ?Medication ?Instructions ?Recorded ?Confirmed amlodipine 5 mg tablet 10 mg PO DAILY 11/29/23 01/08/25 atorvastatin 20 mg tablet 20 mg PO DAILY 11/29/23 01/08/25 colchicine 0.6 mg tablet 0.6 mg PO DAILY PRN gout 11/29/23 01/08/25 cyclobenzaprine 10 mg tablet 10 mg PO DAILY 11/29/23 01/08/25 fluticasone propionate 50 1 spray intranasal DAILY 11/29/23 01/08/25 mcg/actuation nasal spray,suspension gabapentin 100 mg capsule 100 mg PO Q12H 11/29/23 01/08/25 lidocaine 5 % topical patch 1 patch topical Q24H PRN pain 11/29/23 01/08/25 losartan 100 mg tablet 100 mg PO DAILY 11/29/23 01/08/25 zolpidem 10 mg tablet 10 mg PO DAILY 11/29/23 01/08/25 Allergies Allergy/AdvReac Type Severity Reaction Status Date / Time No Known Drug Allergies Allergy Verified 03/14/25 21:27 Review of Systems ROS Status of ROS 10 or more systems reviewed and unremarkable except as noted in history and below PFSH PFSH Social History Little interest or pleasure in doing things: not at all Feeling down, depressed, or hopeless: not at all Exam Constitutional Vital Signs, click to edit/add: Last Vital Signs Temp 97.8 F 03/14/25 21:27 Pulse 77 03/14/25 21:27 Resp 18 03/14/25 21:27 BP 148/77 H 03/14/25 23:00 Pulse Ox 98 03/14/25 21:48 O2 Del Method Room Air 03/14/25 21:27 Common normals: no apparent distress, average body habitus, oriented x3, no limitations, healthy appearing, alert and well nourished [facility] Common normals: normocephalic and head/scalp atraumatic Other: TMs clear Eye Common normals: PERRL, EOMs intact bilaterally and conjunctivae normal Respiratory Common normals: normal respiratory effort, no retractions, no use of accessory muscles and clear to auscultation bilaterally Cardio Common normals: regular rate, regular rhythm, S1 normal heart sound and S2 normal heart sound GI Common normals: Normal to inspection, nondistended, normoactive bowel sounds present and soft to palpation Extremity Common normals: full ROM Other: trace edema LLE. nontender Neuro Common normals: oriented x3, CN's II-XII intact bilaterally, moves all extremities and no focal motor deficits Psych Appearance: grossly normal Course Vital Signs Vital signs: Vital Signs Blood Pressure 179/82 H 03/14/25 21:24 Pulse Oximetry 99 03/14/25 21:24 Temperature 97.8 F 03/14/25 21:27 Pulse Rate 77 03/14/25 21:27 Respiratory Rate 18 03/14/25 21:27 Blood Pressure 148/77 H 03/14/25 23:00 Pulse Oximetry 98 03/14/25 21:48 Oxygen Delivery Method Room Air 03/14/25 21:27 MDM - Dizziness MDM Narrative Medical decision making narrative: patient presents complaining of room spinning lyly when she closes her eyes. No headache. exam neg. CT brain neg and labs WNL. Past history of vertigo. Treated with solumedrol and now is feeling better. Discharged with a prescription for antivert and is to follow up with her family doctor Lab Data Labs: Lab Results 03/14/25 03/14/25 Range/Units 22:07 22:25 WBC 6.0 (4.0-11.0) 10^3/uL RBC 4.06 L (4.20-5.40) 10^6/uL Hgb 12.3 (12.0-16.0) g/dL Hct 35.6 L (36.0-48.0) % MCV 87.7 (81.0-99.0) fL MCH 30.3 (26.7-34.0) pg MCHC 34.6 (29.9-35.2) g/dL RDW 13.0 (11.0-15.0) % Plt Count 275 (150-450) 10^3/uL MPV 10.4 (9.5-13.5) fL Neut % (Auto) 62.5 (43.0-75.0) % Lymph % (Auto) 26.0 (20.5-60.0) % [place]kin % (Auto) 8.6 (1.7-12.0) % Eos % (Auto) 2.2 (0.9-7.0) % Baso % (Auto) 0.7 (0.2-2.0) % Neut # (Auto) 3.8 (1.4-6.5) 10^3/uL Lymph # (Auto) 1.6 (1.2-3.8) 10^3/uL [place]kin # (Auto) 0.5 (0.3-0.8) 10^3/uL Eos # (Auto) 0.1 (0.0-0.7) 10^3/uL Baso # (Auto) 0.0 (0.0-0.1) 10^3/uL Abs Immat Gran (auto) 0.00 (0.00-0.03) 10^3/uL Imm/Tot Granulo (auto) 0.0 (0.0-0.5) % D-Dimer 0.22 (<=0.59) mg/L FEU Sodium 136 (136-145) mmol/L Potassium 3.8 (3.5-5.1) mmol/L Chloride 99 (98-107) mmol/L Carbon Dioxide 24.9 (21.0-32.0) mmol/L Anion Gap 15.9 BUN 17.0 (7.0-18.0) mg/dL Creatinine 0.66 (0.55-1.02) mg/dL Est GFR ( Amer) >60 (>=60 mL/min/1.73m^2) Est GFR (Non-Af Amer) >60 (>=60 mL/min/1.73m^2) BUN/Creatinine Ratio 25.8 Glucose 109 H (74-106) mg/dL Calcium 9.6 (8.5-10.1) mg/dL Troponin I High Sens 5.0 (4.0-51.3) pg/mL Urine Color Lt. yellow (YELLOW) Urine Clarity Clear (CLEAR) Urine pH 6.5 (5.0-9.0) Ur Specific Lutz 1.010 (1.005-1.025) Urine Protein Negative (NEG/TRACE) mg/dL Urine Glucose (UA) Negative (NEGATIVE) mg/dL Urine Ketones Negative (NEGATIVE) mg/dL Urine Occult Blood Negative (NEGATIVE) Urine Nitrite Negative (NEGATIVE) Urine Bilirubin Negative (NEGATIVE) Urine Urobilinogen 0.2 (0.2-1.0) EU/dL Ur Leukocyte Esterase Negative (NEGATIVE) Urine RBC None seen (0-2) #/HPF Urine WBC None seen (NONE SEEN) #/HPF Ur Squamous Epith Cells Rare (NONE/RARE) #/LPF Urine Crystals None seen (None Seen) #/HPF Urine Bacteria None seen (NONE SEEN) #/HPF Urine Casts None seen (NONE SEEN) #/LPF Urine Mucus None seen (NONE SEEN) Ur Culture Indicated? No Discharge Plan Discharge Chief Complaint: Dizziness Clinical Impression: Benign paroxysmal positional vertigo Patient Disposition: Home, Self-Care Prescriptions / Home Meds: No Action amlodipine 5 mg tablet 10 mg PO DAILY atorvastatin 20 mg tablet 20 mg PO DAILY colchicine 0.6 mg tablet 0.6 mg PO DAILY PRN (Reason: gout) cyclobenzaprine 10 mg tablet 10 mg PO DAILY Rx Instructions: at HS fluticasone propionate 50 mcg/actuation spray,suspension 1 spray INTRANASAL DAILY gabapentin 100 mg capsule 100 mg PO Q12H lidocaine 5 % adhesive patch,medicated 1 patch topical Q24H PRN (Reason: pain) losartan 100 mg tablet 100 mg PO DAILY zolpidem 10 mg tablet 10 mg PO DAILY Print Language: Azerbaijani Instructions: Benign Paroxysmal Positional Vertigo (ED) Additional Instructions: follow up with your doctor this week for recheck Referrals: SHAINA CASTAÑEDA [Primary Care Provider, Family Practice] - 1 week
--- NOTE | 2025-03-14 21:40 | CT_ITS ---
[facility] [place] [id number] Patient Name: SUJATHA HA MRN: [id number] date: 1950 Sex: F Assigned Patient Location: ER Current Patient Location: ER Accession/Order Number: [id number] Exam Date: 03/14/2025 21:58 Report Date: 03/14/2025 22:36 At the request of: RD COLLINS MD Procedure: CT stroke head/brain wo con CT BRAIN /STROKE WITHOUT CONTRAST: CLINICAL HISTORY: dizziness-acute COMPARISON: None TECHNIQUE: Contiguous axial unenhanced images were obtained through the brain. This CT exam was performed using one or more following dose reduction techniques: Automated exposure control, adjustment of the mA and/or kV according to patient size, or use of iterative reconstruction technique. FINDINGS: There is no evidence of midline shift, intra or extra-axial fluid collection, hemorrhage or CT evidence of acute large vascular stroke. Intracranial vascular calcifications. Visualized intraorbital contents appear unremarkable. Visualized paranasal sinuses are clear. The surrounding soft tissues are normal. CT/CT stroke head/brain wo con IMPRESSION: NO ACUTE INTRACRANIAL ABNORMALITY. FINDINGS CONVEYED TO DR. COLLINS 10:36 PM 03/14/2025 Impression dictated by: Tra Caicedo M.D. 03/14/2025 10:36 PM Dictation Location: [place] [address] Electronically authenticated by: [id number] Y Date: 03/14/2025 22:36
[2025-03-14] MEDS: METHYLPREDNISOLONE SOD SUCC PF 125 MG/2 ML VIAL IVP (22:33)
[2025-03-14 22:43] LABS: Hematocrit 35.6 % (36.0-48.0); Hemoglobin 12.3 g/dL (12.0-16.0); Immature Granulocytes Abs Auto 0.00 10^3/uL (0.00-0.03); Immature Granulocytes Pct Auto 0.0 % (0.0-0.5); Lymphocytes Absolute Auto 1.6 10^3/uL (1.2-3.8); Mean Corpuscular HGB Conc 34.6 g/dL (29.9-35.2); Mean Corpuscular Hemoglobin 30.3 pg (26.7-34.0); Mean Corpuscular Volume 87.7 fL (81.0-99.0); Platelet Count 275 10^3/uL (150-450); Red Blood Count 4.06 10^6/uL (4.20-5.40); White Blood Count 6.0 10^3/uL (4.0-11.0)
[2025-03-14 22:44] LABS: Glucose Urine UA NEGATIVE (NEGATIVE)
[2025-03-14 22:49] LABS: Cast Seen? NONE SEEN #/LPF (NONE SEEN); Crystals Seen? None Seen #/HPF (None Seen); Urine Culture Indicated NO
--- NOTE | 2025-03-14 22:49 | PC.NURSE ---
Was out shopping this afternoon when she started to feel dizzy. She went home and tried lying down. She thought maybe her blood sugar was low, so she ate a snack, she checked her sugar and states is was normal. She then checked her blood pressure and it was 180's/80s at home. She continued to lay down and rest with no improvement, sos she came to the ED. She states that the last time she had dizziness like this at home she had a bad UTI, but at that time she also had a high fever, so she is not sure what the problem is now.
[2025-03-14 23:00] LABS: Anion Gap 15.9; Blood Urea Nitrogen 17.0 mg/dL (7.0-18.0); Calcium 9.6 mg/dL (8.5-10.1); Carbon Dioxide 24.9 mmol/L (21.0-32.0); Chloride 99 mmol/L (98-107); Estimated GFR (African America >60 (>=60 mL/min/1.73m^2); Estimated GFR (Non-African Ame >60 (>=60 mL/min/1.73m^2); Glucose 109 mg/dL (74-106); Potassium 3.8 mmol/L (3.5-5.1); Sodium 136 mmol/L (136-145)
== END 2025-03-14 23:33 | disposition home or self-care (01) ==
PROVIDERS: Emergency Provider Internal Medicine; PCP Family Medicine
DX: H81.10 Benign paroxysmal vertigo, unspecified ear (principal)
CPT/HCPCS: 36415; 70450; 80048; 81001; 84484; 85025; 85378; 96374; 99285; J2919

== ENCOUNTER 2025-04-11 10:25 | Outpatient (OUT) | payer MEDICARE, SELFPAY ==
--- OUTSIDE RECORDS SUMMARY | 2025-04-11 10:36 | XMS_ITS | CCD ---
Author Organization [facility] Care Team Providers Care Clean Room Operator Name Role Phone Juan Shirley W Unavailable Unavailable RiceJuan W Unavailable Unavailable Juan Shirley W Unavailable Unavailable HUDSON CASTAÑEDA Unavailable Unavailable Hudson Castañeda Primary Care Provider Sg Randall Attending Provider [phone] Kamari Virk Attending Provider You, Gonsalo Unavailable Jordan Gutierrez Unavailable MD Hudson Castañeda Primary Care Provider [phone] MD Kamari Virk Attending Provider Unavailabl MD José Luis Brown Referring Provider [phone] MD Jordan Gutierrez Attending Provider [phone] MD Hudson Castañeda Primary Care Provider [phone] MD Sg Randall Attending Provider [phone] TAMERA RANDALL Admitting Unavailable TONIA, DR [...] Unavailable MD Hudson Castañeda Primary Care Provider [phone] MD Sg Randall Attending Provider CHANTEL Stafford Attending Provider MD José Luis Flores Attending Provider MD Hudson Castañeda Primary Care Provider MD Tamera Randall Attending Provider [phone] MD Hudson Castañeda Primary Care Provider [phone] MD Tamera Randall Attending Provider PRICILLA LOBATO Attending Unavailable HUDSON CASTAÑEDA Referring Unavailable HEMEABELARDO, HUDSON Sales Primary Care Unavailable DEB LÓPEZ Attending Unavailable HUDSON CASTAÑEDA Referring Unavailable HUDSON CASTAÑEDA Primary Care Unavailable MD Hudson Castañeda Primary Care Provider [phone] Self, Referral Attending Provider Unavailable Hudson Castañeda MD Primary Care Provider [phone] Hudson Castañeda MD Unavailable Gonsalo Stevens MD Unavailable MD Tamera Randall Attending Provider Hudson Castañeda MD Primary Care Provider [phone] Hudson Castañeda MD Unavailable [phone] PRICILLA LOBATO Referring Unavailable HEMEABELARDO, HUDSON Sales Primary Care Unavailable PRICILLA LOBATO Attending Unavailable PRICILLA LOBATO Referring Unavailable MADYD, HUDSON Sales Primary Care Unavailable DEB LÓPEZ Attending Unavailable DEB LÓPEZ Referring Unavailable MADDY, HUDSON Sales Primary Care Unavailable Hudson Castañeda MD Primary Care Provider [phone] Hudson Castañeda MD Unavailable [phone] Olive Gong DO Unavailable Hudson Castañeda MD Primary Care Provider [phone] Gonsalo Stevens MD Unavailable Maribeth Powers NP Unavailable [phone] Kyra Gomes APRN Attending Provider Gonsalo Stevens MD Unavailable NO FAMILY, PHYSICIAN Primary Care Provider Unava ilable Maddy DOMÍNGUEZ, Hudson Sales Primary Care Provider Kyra Gomes APRN Attending Provider Gonsalo Stevens MD Attending Provider Tamera Randall MD Attending Provider Maribeth Powers NP Unavailable Gene Lyn MD Attending Provider Maribeth Powers APRN Attending Provider NON STAFF Primary Care Provider Unavailred Wright RN, Cassi Unavailable [phone] OLIVE GONG Attending Unavailable OLIVE GONG Referring Unavailable MARIBETH POWERS Attending Unavailable OLIVE GONG Attending Unavailable HUDSON CASTAÑEDA Attending Unavailable HUDSON CASTAÑEDA Attending Unavailable HUDSON CASTAÑEDA Attending Unavailable HUDSON CASTAÑEDA Attending Unavailable HUDSON CASTAÑEDA Attending Unavailable MARIBETH POWERS Attending Unavailable JOSÉ LUIS FLORES Attending Unavailable NO FAMILY, PHYSICIAN Primary Care Provider Unava ilable Hudson Castañeda MD Primary Care Provider [phone] Self, Referral Attending Provider Unavailable Olive Gong DO Attending Provider Hudson Castañeda Primary Care Unavailable Self, Referral [...] Medication Allergies] Propensity to adverse reactions (disorder) [facility] Repository (10 sources) Ibuprofen Drug Allergy 11-26-19 due to kidneys [facility] (5 sources) NSAIDs Propensity to adverse reactions due to kidneys [employer] Other (4 sources) Pollen; Translations: [POLLEN EXTRACTS] Propensity to adverse reactions to drug (disorder) 02-10-20 [facility] Repository (20 sources) HMG-CoA reductase inhibitor Drug Intolerance 03-29-20 Other [facility] (20 sources) Pollen Propensity to adverse reactions 02-10-20 [facility] (20 sources) Rosuvastatin calcium Propensity to adverse reactions 03-29-20 [facility] Work Phone: (6 sources) NSAIDS (Non-Steroidal Anti-Inflamma; Translations: [NSAIDS (Non-Steroidal Anti-Inflamma] Allergy to substance 11-26-19 due to kidneys [facility] (1 source) Ibuprofen Drug Allergy 02-09-20 [facility] Repository Medications Current Medications Medication Drug [...] Start: 03-19-2018 take 4 tablets by mo [facility] in the morning losartan (COZAAR) 25 [...] therapy Start: 01-31-2022 take 2 tablets by [facility] once daily Start: 01-31-2022 take 2 tablets by [facility] once daily Magnesium 250 mg Tablet Active [...] therapy Start: 11-13-2023 take 1 capsule by [facility] once daily at bedtime as needed Melatonin 3 mg capsule Active 3 MG PO Daily at bedtime as needed November 13, 2023 12:00am Melatonin + L-Theanine 3 mg (5 sources) take 1 tablet by [facility] once daily Melatonin + L-Theanine 3 [...] for mild pain Active polyethylene glycol 3350 07603 mg powder for oral solution (20 sources) [...] tablet 02/17/2024 03/29/2024 Discontinued (Side effects) sennosides, skilled nursing 8.6 mg oral tablet (20 sources) take [...] oil (20 sources) Start: 02-01-20 End: 11-13-19 Onfhn-Ga-2-Dha-Epa-Ph ospho-Ast (Krill Oil) 1,521-746-08-80 mg Capsule Discontinued 1 CAP PO Daily January 31, 2022 12:00am November 13, 2023 11:03am Start: 01-31-2022 Tzrnx-Nv-1-Dha -Ezo-Vgsnbdd-Pmr (Krill Oil) 1,095-436-06-80 mg Capsule Active 1 CAP PO Daily January 31, 2022 12:00am krill oil 500 mg capsule Take by mouth. 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] Onset: 3 Episodic Other aftercare (20 sources) Polypharmacy ; Translations: [Other senior care (current) drug therapy] Onset: 1 12-23-2022 [...] n 02-07-2025 MM screening mammo BI w/CAD [facility] [address] [place] [address] Mammography Report Signed Patient: Sari Abbasi MR#: [id number] : 1950 Acct:[id number] Age/Sex: 74 / F Adm Date: 02/07/25 Loc: [place] Room: Type: [facility] Attending Dr: Referral Self Ordering Provider: SELF,REFERRAL Date of Service: 02/07/25 Procedure(s): MM screening mammo BI w/CAD Accession Number(s): ([id number]) MM/MM screening mammo BI w/CAD: SCREENING Copies [...] Jr., D.O. 02/07/2025 1:39 PM Dictation Location: [facility] Dictated By: Michael Cole Jr, DO 02/07/25 1338 Signed By: 02/07/25 1339 Normal [facility] Mammography reportOrdered By : Michael Cole on 02-07-2025 Diagnostic imaging study [facility] [address] [place] [address] Mammography Report Signed Patient: Sari Abbasi MR#: [id number] : 1950 Acct:[id number] Age/Sex: 74 / F Adm Date: 5 Loc: [place] Room: Type: [facility] Attending Dr: Referral Self Ordering Provider: SELF,REFERRAL Date of Service: 02/07/25 Procedure(s): MM screening mammo BI w/CAD Accession Number(s): ([id number]) MM/MM screening mammo BI w/CAD: SCREENING Copies [...] Jr., D.O. 02/07/2025 1:39 PM Dictation Location: [facility] Dictated By: Michael Cole Jr DO 02/07/25 1338 Signed By: 02/07/25 1339 [facility] Urine Cultureon 01-08-2025 Bacteria identified Cx Nom (U) ORGANISM: Escherichia coli (O:ESCCOL) Lydia Count >100,000 Aerobic SARAI Charge (NMIC56) ---- [...] RESISTANT TO ALL B-LACTAM DRUGS. PERFORMED BY: [address] [place] [address] PATHOLOGIST WHITE METAL CORROSION PROOFER VALERIA GRACE M.D. Normal [facility] Comment on above: Performed By: #### C UU #### [address] Urine cultureOrdered By: Tripp Lyn on 01-08-2025 Bacteria identified Cx Nom (U) Escherichia coli Abnormal [facility] Alanine aminotransferase [En zymatic activity/volume] in Serum or PlasmaOrdered By: Tamera Randall on 01-03-2025 ALT [Catalytic activity/Vol] 19 U/L Normal 7-52 [facility] Comment on above: Performed By: #### C MP, CBC #### [address] Albumin [Mass/volume] in Ser um or Plasma by Bromocresol green (BCG) dye binding methoOrdered By: Tamera Randall on 01-03-2025 Albumin BCG dye [Mass/Vol] 4.5 g/dL 3.5-5.7 [facility] Alkaline phosphatase [Enzyma tic activity/volume] in Serum or PlasmaOrdered By: Tamera Randall on 01-03-2025 ALP [Catalytic activity/Vol] 88 U/L Normal 34-104 [facility] Comment on above: Result Comment: PERF ORMED BY: [place] [address] PATHOLOGIST WHITE METAL CORROSION PROOFER VALERIA GRACE M.D. Performed By: #### C MP, CBC #### [facility] [address] [place] [address] Aspartate aminotransferase [ Enzymatic activity/volume] in Serum or PlasmaOrdered By: Tamera Randall on 01-03-2025 AST [Catalytic activity/Vol] 21 U/L Normal 13-39 [facility] Comment on above: Performed By: #### C MP, CBC #### [address] Basophils [#/volume] in Bloo d by Automated countOrdered By: Tamera Randall on 01-03-2025 Basophils (Bld) [#/Vol] 0.0 10*3/uL Normal 0.0-0.2 [facility] Comment on above: Result Comment: PERF ORMED BY: [place] [address] PATHOLOGIST WHITE METAL CORROSION PROOFER VALERIA GRACE M.D. Performed By: #### C MP, CBC #### [address] Basophils/100 leukocytes in Blood by Automated countOrdered By: Tamera Randall on 01-03-2025 Basophils/100 WBC (Bld) 1.2 % Normal . [facility] Comment on above: Performed By: #### C MP, CBC #### [address] Bilirubin.total [Mass/volume ] in Serum or PlasmaOrdered By: Tamera Randall on 01-03-2025 Bilirubin [Mass/Vol] 0.6 mg/dL Normal 0.3-1.[address] [facility] [place] [facility] Comment on above: Performed By: #### C MP, CBC #### [place] [address] [place] Calcium [Mass/volume] in Ser um or PlasmaOrdered By: Tamera Randall on 01-03-2025 Calcium [Mass/Vol] 9.5 mg/dL Normal 8.6-10.[address] [facility] [place] [facility] Comment on above: Performed By: #### C MP, CBC #### [place] [address] [place] Carbon dioxide, total [Moles /volume] in Serum or PlasmaOrdered By: Tamera Randall on 01-03-2025 CO2 [Moles/Vol] 27.8 mmol/L Normal 21.0-31.0 [facility] Comment on above: Performed By: #### C MP, CBC #### [place] [address] [place] Chloride [Moles/volume] in S jl or PlasmaOrdered By: Tamera Randall on 01-03-2025 Chloride [Moles/Vol] 97 mmol/L Low 98-[address] [facility] [place] [facility] Comment on above: Performed By: #### C MP, CBC #### [address] Complete Blood Count Auto Di ffon 01-03-2025 Mean Corpuscular HGB Conc 34.4 g/dL Normal 32.0-35.0 [facility] Comment on above: Performed By: #### C MP, CBC #### [address] NRBC% 0.1 /100{WBC} Normal 0-0.5 [facility] Comment on above: Performed By: #### C MP, CBC #### [address] White Blood Count 3.9 [CFU]/mL Normal 3.8-11.6 [facility] Comment on above: Performed By: #### C MP, CBC #### [address] Comprehensive Metabolic Pane canelo 01-03-2025 Albumin [Mass/Vol] 4.5 g/dL Normal 3.5-5.7 [facility] Comment on above: Performed By: #### C MP, CBC #### [place] [address] [place] GFR/1.73 sq M.predicted MDRD (S/P/Bld) [Vol rate/Area] mL/min/{1.73_m2} Normal [facility] Comment on above: Performed By: #### C MP, CBC #### [place] [address] [place] Creatinine [Mass/volume] in Serum or PlasmaOrdered By: Tamera Randall on 01-03-2025 Creatinine [Mass/Vol] 0.67 mg/dL Normal 0.60-1.20 [facility] Comment on above: Performed By: #### C MP, CBC #### [address] Eosinophils [#/volume] in Bl ood by Automated countOrdered By: Tamera Randall on 01-03-2025 Eosinophils (Bld) [#/Vol] 0.1 10*3/uL Normal 0.0-0.45 [facility] Comment on above: Performed By: #### C MP, CBC #### [place] [address] [place] Eosinophils/100 leukocytes i n Blood by Automated countOrdered By: Tamera Randall on 01-03-2025 Eosinophils/100 WBC (Bld) 3.8 % Normal . [facility] Comment on above: Performed By: #### C MP, CBC #### [address] Erythrocyte distribution wid th [Ratio] by Automated countOrdered By: Tamera Randall on 01-03-2025 Erythrocyte distribution width (RBC) [Ratio] 13.6 % Normal 11.9-15.3 [facility] Comment on above: Performed By: #### C MP, CBC #### [address] Erythrocytes [#/volume] in B lood by Automated countOrdered By: Tamera Randall on 01-03-2025 RBC (Bld) [#/Vol] 3.94 10*6/uL Normal 3.60-5.00 [facility] Comment on above: Performed By: #### C MP, CBC #### [address] Glucose [Mass/volume] in Ser um or PlasmaOrdered By: Tamera Randall on 01-03-2025 Glucose [Mass/Vol] 96 mg/dL Normal 70-[address] [facility] [place] Comment on above: ADA recommended refe rence rangeRandom Glucose Reference Range is dependent on time and content of last meal. Glucose of more than 200 mg/dL in a nonstressed, ambulatory subject supports the diagnosis of Diabetes Mellitus. Result Comment: [place] om Glucose Reference Range is dependent on time and content of last meal. Glucose of more than 200 mg/dL in a nonstressed, ambulatory subject supports the diagnosis of Diabetes Mellitus. ADA recommended reference range Performed By: #### C MP, CBC #### [place] [address] [place] Hematocrit [Volume Fraction] of Blood by Automated countOrdered By: Tamera Randall on 01-03-2025 Hematocrit (Bld) [Volume fraction] 34.8 % Normal 34.0-46.4 [facility] Comment on above: Performed By: #### C MP, CBC #### [address] Hemoglobin [Mass/volume] in BloodOrdered By: Tamera Suarezrow on 01-03-2025 Hemoglobin (Bld) [Mass/Vol] 12.0 g/dL Normal 11.8-15.4 [facility] Comment on above: Performed By: #### C MP, CBC #### [address] Leukocytes [#/volume] correc taylor for nucleated erythrocytes in Blood by Automated counOrdered By: Tamera Suarezrow on 01-03-2025 WBC corrected for nucl RBC Auto (Bld) [#/Vol] 3.9 10*3/uL 3.8-11.6 [facility] Leukocytes [#/volume] in Blo od by Automated countOrdered By: Tamera Tonia on 01-03-2025 WBC (Bld) [#/Vol] 3.9 10*3/uL Normal 3.8-11.[address] [facility] Comment on above: Performed By: #### C MP, CBC #### [address] Lymphocytes [#/volume] in Bl ood by Automated countOrdered By: Tamera Tonia on 01-03-2025 Lymphocytes (Bld) [#/Vol] 1.3 10*3/uL Normal 1.00-4.8 [facility] Comment on above: Performed By: #### C MP, CBC #### [place] [address] [place] Lymphocytes/100 leukocytes i n Blood by Automated countOrdered By: Tameraluke Randall on 01-03-2025 Lymphocytes/100 WBC (Bld) 32.3 % Normal . [facility] Comment on above: Performed By: #### C MP, CBC #### [place] [address] [place] MCH [Entitic mass] by Automa taylor countOrdered By: Tamera Suarezrow on 01-03-2025 MCH (RBC) [Entitic mass] 30.4 pg Normal 24.7-34.3 [facility] Comment on above: Performed By: #### C MP, CBC #### [address] MCHC Auto (RBC) [Mass/Vol]Or dered By: Tamera Tonia on 01-03-2025 MCHC (RBC) [Mass/Vol] 34.4 g/dL 32.0-35.0 [facility] MCV [Entitic volume] by Auto mated countOrdered By: Tamera Suarezrow on 01-03-2025 MCV (RBC) [Entitic vol] 88.2 fL Normal 80-100 F [facility] Comment on above: Performed By: #### C MP, CBC #### [place] [address] [place] Monocytes [#/volume] in Bloo d by Automated countOrdered By: Tamera Randall on 01-03-2025 Monocytes (Bld) [#/Vol] 0.4 10*3/uL Normal 0.0-0.8 [facility] Comment on above: Performed By: #### C MP, CBC #### [place] [address] [place] Monocytes/100 leukocytes in Blood by Automated countOrdered By: Tamera Randall on 01-03-2025 Monocytes/100 WBC (Bld) 9.4 % Normal . [facility] Comment on above: Performed By: #### C MP, CBC #### [place] [address] [place] Neutrophils [#/volume] in Bl ood by Automated countOrdered By: Tamera Randall on 01-03-2025 Neutrophils (Bld) [#/Vol] 2.1 10*3/uL Normal 1.8-7.7 [facility] Comment on above: Performed By: #### C MP, CBC #### [facility] [address] [place] [address] [place] Neutrophils/100 leukocytes i n Blood by Automated countOrdered By: Tamera Tonia on 01-03-2025 Neutrophils/100 WBC (Bld) 53.3 % Normal . [facility] Comment on above: Performed By: #### C MP, CBC #### [facility] [address] No Panel InformationOrdered By: Tamera Randall on 01-03-2025 Estimated GFR (CKD-EPI) > 60.0 mL/Min [facility] Creatinine Clearance (Chem N/A [facility] Nucleated erythrocytes [Pres ence] in Blood by Automated countOrdered By: Tamera Randall on 01-03-2025 Nucleated RBC Auto Ql (Bld) 0.1 /100{WBC} 0-0.5 [facility] Platelet mean volume [Entiti c volume] in Blood by Automated countOrdered By: Tamera Randall on 01-03-2025 Platelet mean volume (Bld) [Entitic vol] 9.2 fL Normal 6.3-10.7 [facility] Comment on above: Performed By: #### C MP, CBC #### [facility] [address] [place] [address] [place] Platelets [#/volume] in Bloo d by Automated countOrdered By: Tamera Randall on 01-03-2025 Platelets (Bld) [#/Vol] 277 10*3/uL Normal 150-450 [facility] Comment on above: Performed By: #### C MP, CBC #### [facility] [address] [place] [address] [place] Potassium [Moles/volume] in Serum or PlasmaOrdered By: Tamera Randall on 01-03-2025 Potassium [Moles/Vol] 4.3 mmol/L Normal 3.5-5.1 [facility] Comment on above: Performed By: #### C MP, CBC #### [place] [address] [place] Protein [Mass/volume] in Ser um or PlasmaOrdered By: Tamera Randall on 01-03-2025 Protein [Mass/Vol] 7.3 g/dL Normal 6.4-8.[address] [facility] Comment on above: Performed By: #### C MP, CBC #### [address] Serum globulin measurement b y calculation (mass/volume)Ordered By: Tamera Randall on 01-03-2025 Globulin (S) [Mass/Vol] 2.8 g/dL Normal [facility] Comment on above: Performed By: #### C MP, CBC #### [address] Serum or plasma albumin/glob ulin mass ratioOrdered By: Tamera Randall on 01-03-2025 Albumin/Globulin [Mass ratio] 1.6 {ratio} Normal [facility] Comment on above: Performed By: #### C MP, CBC #### [address] Serum or plasma anion gap de terminationOrdered By: Tamera Randall on 01-03-2025 Anion gap [Moles/Vol] 11.5 mmol/L Normal 6.0-15.0 [facility] Comment on above: Performed By: #### C MP, CBC #### [address] Sodium [Moles/volume] in Ser um or PlasmaOrdered By: Tamera Randall on 01-03-2025 Sodium [Moles/Vol] 132 mmol/L Low 136-[address] [facility] Comment on above: Performed By: #### C MP, CBC #### [address] Urea nitrogen [Mass/volume] in Serum or PlasmaOrdered By: Tamera Randall on 01-03-2025 Urea nitrogen [Mass/Vol] 16 mg/dL Normal 7-25 [facility] Comment on above: Performed By: #### C MP, CBC #### [address] Erythrocyte distribution wid th Auto (RBC) [Ratio]on 11-15-2024 Erythrocyte distribution width (RBC) [Ratio] Erythrocyte distribution width [Ratio] by Automated count 11.0-15.0 [facility] Erythrocyte distribution width (RBC) [Ratio] 12.8 % 11.0-15.0 [facility] Estimated glomerular filtrat ion rate (GFR) non- Americanon 11-15-2024 GFR/1.73 sq M.predicted among non-blacks MDRD (S/P/Bld) [Vol rate/Area] Estimated glomerular filtration rate (GFR) non- >=60 mL/min/1.73m 2 [facility] GFR/1.73 sq M.predicted among non-blacks MDRD (S/P/Bld) [Vol rate/Area] mL/min/{1.73_m2} >=60 mL/min/1.73m 2 [facility] CBC WITH PLATELET NO DI FFERENTIALon 11-15-2024 Erythrocyte distribution width (RBC) [Ratio] 12.8 % 11.0 - 15.0 % [facility] Hematocrit (Bld) [Volume fraction] 33.9 % Low 36.0 - 48.0 % [facility] Hemoglobin (Bld) [Mass/Vol] 11.7 g/dL Low 12.0 - 16.0 g/dL [facility] Interpretation and review of laboratory results Abnormal [facility] MCH (RBC) [Entitic mass] 30.6 pg 26.7 - 34.0 pg [facility] MCHC (RBC) [Mass/Vol] 34.5 g/dL 29.9 - 35.2 g/dL [facility] MCV (RBC) [Entitic vol] 88.7 fL 81.0 - 99.0 fL [facility] Platelet mean volume (Bld) [Entitic vol] 9.9 fL 9.5 - 13.5 fL [facility] TB PLT 400 [facility] RBC 3.82 Low [facility] WBC 4.8 [facility] Hematocrit Auto (Bld) [Volum e fraction]on 11-15-2024 Hematocrit (Bld) [Volume fraction] Hematocrit [Volume Fraction] of Blood by Automated count Low 36.0-48.0 [facility] Hematocrit (Bld) [Volume fraction] 33.9 % Low 36.0-48.0 [facility] Hemoglobin [Mass/volume] in Bloodon 11-15-2024 Hemoglobin (Bld) [Mass/Vol] Hemoglobin [Mass/volume] in Blood Low 12.0-16.0 [facility] Hemoglobin (Bld) [Mass/Vol] 11.7 g/dL Low 12.0-16.0 [facility] Laboratory - Chemistry and C hemistry - challengeon 11-15-2024 Albumin [Mass/Vol] 3.8 g/dL 3.4-5.[address] [facility] Calcium [Mass/Vol] 9.2 mg/dL 8.5-10.[address] [facility] Chloride [Moles/Vol] 96 mmol/L Low 98-[address] [facility] CO2 [Moles/Vol] 29.2 mmol/L 21.0-32.0 [facility] Creatinine [Mass/Vol] 0.70 mg/dL 0.55-1.02 [facility] GFR/1.73 sq M.predicted MDRD (S/P/Bld) [Vol rate/Area] mL/min/{1.73_m2} >=60 mL/min/1.73m 2 [facility] Glucose [Mass/Vol] 96 mg/dL 74-[address] [facility] Magnesium [Mass/Vol] 2.1 mg/dL 1.8-2.[address] [facility] Potassium [Moles/Vol] 4.2 mmol/L 3.5-5.1 [facility] Sodium [Moles/Vol] 133 mmol/L Low 136-[address] [facility] Urea nitrogen [Mass/Vol] 13.0 mg/dL 7.0-18.0 [facility] Urea nitrogen/Creatinine [Mass ratio] 18.6 mg/mg [facility] Bilirubin Ql (U) Negative NEGATIVE [facility] Glucose (U) [Mass/Vol] Negative NEGATIVE [facility] Ketones Ql (U) Negative NEGATIVE [facility] pH (U) 7.0 [pH] 5.0-9.0 [facility] Specific gravity (U) [Rel density] <=1.005 Abnormal 1.005-1.025 [facility] Urobilinogen Qn (U) 0.2 {Ada'U}/dL 0.2-1.0 [facility] Laboratory - Specimen inform ationon 11-15-2024 Appearance (U) CLEAR CLEAR [facility] Color (U) LT. YELLOW YELLOW [facility] Laboratory - Urinalysison Leukocyte esterase Test strip Ql (U) Negative NEGATIVE [facility] Mucus Ql (Urine sed) NONE SEEN NONE SEEN [facility] Nitrite Ql (U) Negative NEGATIVE [facility] Protein (U) [Mass/Vol] 13.7 mg/dL High <=11.9 [facility] Protein Ql (U) Negative NEG/TRACE [facility] Leukocytes [#/volume] correc taylor for nucleated erythrocytes in Blood by Automated counon 11-15-2024 WBC corrected for nucl RBC Auto (Bld) [#/Vol] Leukocytes [#/volume] corrected for nucleated erythrocytes in Blood by Automated coun 4.0-11.0 [facility] WBC corrected for nucl RBC Auto (Bld) [#/Vol] 4.8 10 3/uL 4.0-11.0 [facility] MCH Auto (RBC) [Entitic mass ]on 11-15-2024 MCH (RBC) [Entitic mass] MCH [Entitic mass] by Automated count 26.7-34.0 [facility] MCH (RBC) [Entitic mass] 30.6 pg 26.7-34.0 [facility] MCHC Auto (RBC) [Mass/Vol]on 11-15-2024 MCHC (RBC) [Mass/Vol] MCHC [Mass/volume] by Automated count 29.9-35.2 [facility] MCHC (RBC) [Mass/Vol] 34.5 g/dL 29.9-35.2 [facility] MCV Auto (RBC) [Entitic vol] on 11-15-2024 MCV (RBC) [Entitic vol] MCV [Entitic vol ume] by Automated count 81.0-99.0 [facility] MCV (RBC) [Entitic vol] 88.7 fL 81.0-99.0 F [facility] No Panel Informationon 11-15 25-Hydroxy Vitamin D Total 47.0 ng/mL [facility] Comment on above: <20 ng/mL Vit D defi cient20-<30 ng/mL Vit D [id number] ng/mL Vit D sufficient>100 ng/mL Potential Toxicity Phosphorus Level 4.2 mg/dL 2.6-4.7 [facility] Urine Bacteria TRACE #/HPF Abnormal NONE SEEN [facility] Urine Occult Blood Negative NEGATIVE [facility] Urine Other Casts NONE SEEN #/LPF NONE SEEN [facility] Urine Other Crystals None Seen #/HPF None Seen [facility] Urine Random Creatinine <13.00 mg/dL Low 20.00-300. 00 [facility] Urine RBC 0-2 #/HPF 0-2 [facility] Urine Squamous Epithelial Cells RARE #/LPF NONE/RARE [facility] Urine WBC 0-2 #/HPF Abnormal NONE SEEN [facility] Platelet mean volume Auto (B ld) [Entitic vol]on 11-15-2024 Platelet mean volume (Bld) [Entitic vol] Platelet mean volume [Entitic volume] in Blood by Automated count 9.5-13.5 [facility] Platelet mean volume (Bld) [Entitic vol] 9.9 fL 9.5-13.5 [facility] Platelets Auto (Bld) [#/Vol] on 11-15-2024 Platelets (Bld) [#/Vol] Platelets [#/vol ume] in Blood by Automated count 150-450 [facility] Platelets (Bld) [#/Vol] 400 10 3/uL 150-450 [facility] RBC Auto (Bld) [#/Vol]on RBC (Bld) [#/Vol] Erythrocytes [#/volume] in Blood by Automated count Low 4.20-5.40 [facility] RBC (Bld) [#/Vol] 3.82 10 6/uL Low 4.20-5.40 [facility] Serum or plasma anion gap de terminationon 11-15-2024 Anion gap [Moles/Vol] Serum or plasma an ion gap determination [facility] Anion gap [Moles/Vol] 12.0 mmol/L [facility] Laboratory - Chemistry and C hemistry - challengeon 11-07-2024 Bilirubin Ql (U) Negative [facility] Glucose (U) [Mass/Vol] Negative [facility] Ketones Ql (U) Negative [facility] pH (U) 7.0 [pH] [facility] Specific gravity (U) [Rel density] 1.010 [facility] Laboratory - Specimen inform ationon 11-07-2024 Appearance (U) clear [facility] Color (U) lightyellow [facility] Laboratory - Urinalysison Leukocyte esterase Test strip Ql (U) large [facility] Nitrite Ql (U) Negative [facility] Protein Ql (U) Negative [facility] No Panel Informationon 11-07 Urine Occult Blood trace-lysed [facility] Urine Urobilinogen 0.2EU/dL [facility] Urine Cultureon 11-07-2024 Bacteria identified Cx Nom (U) ORGANISM: Escherichia coli (O:ESCCOL) Lydia Count 75,000 ORGANISM: Escherichia coli (O:ESCCOL) Lydia Count >100,000 Aerobic SARAI Charge ([id number]) ---- [...] RESISTANT TO ALL B-LACTAM DRUGS. PERFORMED BY: [place] [address] PATHOLOGIST WHITE METAL CORROSION PROOFER BÁRBARA LOGAN M.D. Normal [facility] Comment on above: Performed By: #### C UU #### [address] Urine cultureOrdered By: Liz Gomes on 11-07-2024 Bacteria identified Cx Nom (U) Escherichia coli Abnormal [facility] Bacteria identified Cx Nom (U) Escherichia coli Abnormal [facility] Bacteria identified Cx Nom (U) Escherichia coli#2 Abnormal [facility] Urinalysis macro (dipstick) panel (U)on 10-25-2024 Bilirubin, UA Negative Negative - 4(70) +++ mg/dL [facility] Blood, UA Positive Negative - 50 Joe/mcL [facility] Comment on above: 2+ Clarity, UA Cloudy [facility] Color, UA Yellow [facility] Glucose, UA Negative Negative - 1999(110) ++++ mg/dL [facility] Interpretation and review of laboratory results Abnormal [facility] Ketones, UA Positive Negative - 160(16) ++++ mg/dL [facility] Leukocytes, UA 2+ Negative - 500+++ Isa/mcL [facility] Nitrite, UA Negative Negative - Positive [facility] pH, UA 6 5 - 9 [facility] Protein, UA 1+ Negative - 1999(20) ++++ mg/dL [facility] Spec Grav, UA 1.005 1 - 1.03 [facility] Urobilinogen, UA 0.2 0.2 - 12 mg/dL [facility] No Panel Informationon 08-11 Olive Gong DO [...] discussed. Consent was given by the patient. [facility] Alanine aminotransferase [En zymatic activity/volume] in Serum or PlasmaOrdered By: Tamera Randall on 04-23-2024 ALT [Catalytic activity/Vol] 16 U/L Normal 7-52 [facility] Comment on above: Performed By: #### E SR, CMP, CBC #### [facility] [address] [place] [address] Albumin [Mass/volume] in Ser um or Plasma by Bromocresol green (BCG) dye binding methoOrdered By: Tamera Randall on 04-23-2024 Albumin BCG dye [Mass/Vol] 4.4 g/dL 3.5-5.7 [facility] Alkaline phosphatase [Enzyma tic activity/volume] in Serum or PlasmaOrdered By: Tamera Suarezrow on 04-23-2024 ALP [Catalytic activity/Vol] 62 U/L Normal 34-104 [facility] Comment on above: Result Comment: PERF ORMED BY: [place] [address] PATHOLOGIST WHITE METAL CORROSION PROOFER ONEIL GAMA M.D. Performed By: #### E SR, CMP, CBC #### [address] Aspartate aminotransferase [ Enzymatic activity/volume] in Serum or PlasmaOrdered By: Tameraluke Randall on 04-23-2024 AST [Catalytic activity/Vol] 21 U/L Normal 13-39 [facility] Comment on above: Performed By: #### E SR, CMP, CBC #### [address] Automated basophil %Ordered By: Tamera Randall on 04-23-2024 Basophils/100 WBC (Bld) 1.4 % Normal . F [facility] Comment on above: Performed By: #### E SR, CMP, CBC #### [address] Automated basophil countOrde red By: Tameraluke Randall on 04-23-2024 Basophils (Bld) [#/Vol] 0.1 10*3/uL Normal 0.0-0.2 [facility] Comment on above: Performed By: #### E SR, CMP, CBC #### [address] Automated blood monocyte cou ntOrdered By: Tameraluke Randall on 04-23-2024 Monocytes (Bld) [#/Vol] 0.6 10*3/uL Normal 0.0-0.8 [facility] Comment on above: Performed By: #### E SR, CMP, CBC #### [address] Automated eosinophil %Ordere d By: Tamera Randall on 04-23-2024 Eosinophils/100 WBC (Bld) 2.4 % Normal . [facility] Comment on above: Performed By: #### E SR, CMP, CBC #### [address] Automated eosinophil countOr dered By: Tamera Suarezrow on 04-23-2024 Eosinophils (Bld) [#/Vol] 0.1 10*3/uL Normal 0.0-0.45 [facility] Comment on above: Performed By: #### E SR, CMP, CBC #### [address] Automated monocyte %Ordered By: Tamera Tonia on 04-23-2024 Monocytes/100 WBC (Bld) 12.2 % Normal . [facility] Comment on above: Performed By: #### E SR, CMP, CBC #### [address] Automated neutrophil %Ordere d By: Tameraluke Randall on 04-23-2024 Neutrophils/100 WBC (Bld) 57.2 % Normal . [facility] Comment on above: Performed By: #### E SR, CMP, CBC #### [address] Bilirubin.total [Mass/volume ] in Serum or PlasmaOrdered By: Tameraluke Randall on 04-23-2024 Bilirubin [Mass/Vol] 0.8 mg/dL Normal 0.3-1.[address] [facility] Comment on above: Performed By: #### E SR, CMP, CBC #### [address] Calcium [Mass/volume] in Ser um or PlasmaOrdered By: Tameraluke Randall on 04-23-2024 Calcium [Mass/Vol] 9.3 mg/dL Normal 8.6-10.[address] [facility] Comment on above: Performed By: #### E SR, CMP, CBC #### [address] Carbon dioxide, total [Moles /volume] in Serum or PlasmaOrdered By: Tameraluke Randall on 04-23-2024 CO2 [Moles/Vol] 28.2 mmol/L Normal 21.0-31.0 [facility] Comment on above: Performed By: #### E SR, CMP, CBC #### [address] Chloride [Moles/volume] in S jl or PlasmaOrdered By: Tamera Randall on 04-23-2024 Chloride [Moles/Vol] 94 mmol/L Low 98-[address] [facility] Comment on above: Performed By: #### E SR, CMP, CBC #### [address] Complete Blood Count Auto Di ffon 04-23-2024 Mean Corpuscular HGB Conc 34.5 g/dL Normal 32.0-35.0 [facility] Comment on above: Performed By: #### E SR, CMP, CBC #### [address] NRBC% 0.1 /100{WBC} Normal 0-0.5 [facility] Comment on above: Performed By: #### E SR, CMP, CBC #### [address] Comprehensive Metabolic Pane canelo 04-23-2024 Albumin [Mass/Vol] 4.4 g/dL Normal 3.5-5.7 [facility] Comment on above: Performed By: #### E SR, CMP, CBC #### [place] [address] [place] GFR/1.73 sq M.predicted MDRD (S/P/Bld) [Vol rate/Area] mL/min/{1.73_m2} Normal [facility] Comment on above: Performed By: #### E SR, CMP, CBC #### [facility] [address] [place] [address] [place] Creatinine [Mass/volume] in Serum or PlasmaOrdered By: Tamera Randall on 04-23-2024 Creatinine [Mass/Vol] 0.71 mg/dL Normal 0.60-1.20 [facility] Comment on above: Performed By: #### E SR, CMP, CBC #### [address] Erythrocyte Sedimentation Ra eulalio 04-23-2024 ESR (Bld) [Velocity] 22 mm/h Normal 0-29 [facility] Comment on above: Result Comment: PERF ORMED BY: [place] [address] PATHOLOGIST WHITE METAL CORROSION PROOFER ONEIL GAMA M.D. Performed By: #### E SR, CMP, CBC #### [address] Erythrocyte distribution wid th [Ratio] by Automated countOrdered By: Tamera Randall on 04-23-2024 Erythrocyte distribution width (RBC) [Ratio] 13.3 % Normal 11.9-15.3 [facility] Comment on above: Performed By: #### E SR CMP, CBC #### [address] Erythrocyte sedimentation ra te by Photometric methodOrdered By: Tamera Randall on 04-23-2024 ESR Photometric method (Bld) [Velocity] 22 mm/hr 0-29 [facility] Erythrocytes [#/volume] in B lood by Automated countOrdered By: Tamera Randall on 04-23-2024 RBC (Bld) [#/Vol] 3.99 10*6/uL Normal 3.60-5.00 [facility] Comment on above: Performed By: #### E RICKIE GRACE, CBC #### [address] Glucose [Mass/volume] in Ser um or PlasmaOrdered By: Tamera Randall on 04-23-2024 Glucose [Mass/Vol] 91 mg/dL Normal 70-[address] [facility] Comment on above: ADA recommended refe rence rangeRandom Glucose Reference Range is dependent on time and content of last meal. Glucose of more than 200 mg/dL in a nonstressed, ambulatory subject supports the diagnosis of Diabetes Mellitus. Result Comment: [place] om Glucose Reference Range is dependent on time and content of last meal. Glucose of more than 200 mg/dL in a nonstressed, ambulatory subject supports the diagnosis of Diabetes Mellitus. ADA recommended reference range Performed By: #### E SR, CMP, CBC #### [address] Hematocrit [Volume Fraction] of Blood by Automated countOrdered By: Tamera Suarezrow on 04-23-2024 Hematocrit (Bld) [Volume fraction] 36.1 % Normal 34.0-46.4 [facility] Comment on above: Performed By: #### E SR, CMP, CBC #### [address] Hemoglobin [Mass/volume] in BloodOrdered By: Tamera Tonia on 04-23-2024 Hemoglobin (Bld) [Mass/Vol] 12.4 g/dL Normal 11.8-15.4 [facility] Comment on above: Performed By: #### E SR, CMP, CBC #### [address] Leukocytes [#/volume] correc taylor for nucleated erythrocytes in Blood by Automated counOrdered By: Tamera Suarezrow on 04-23-2024 WBC corrected for nucl RBC Auto (Bld) [#/Vol] 4.6 10*3/uL 3.8-11.6 [facility] Leukocytes [#/volume] in Blo od by Automated countOrdered By: Tamera Suarezrow on 04-23-2024 WBC (Bld) [#/Vol] 4.6 10*3/uL Normal 3.8-11.[address] [facility] Comment on above: Performed By: #### E SR, CMP, CBC #### [place] [address] [place] Lymphocytes [#/volume] in Bl ood by Automated countOrdered By: Tameraluke Randall on 04-23-2024 Lymphocytes (Bld) [#/Vol] 1.2 10*3/uL Normal 1.00-4.8 [facility] Comment on above: Performed By: #### E SR, CMP, CBC #### [place] [address] [place] Lymphocytes/100 leukocytes i n Blood by Automated countOrdered By: Tamera Randall on 04-23-2024 Lymphocytes/100 WBC (Bld) 26.8 % Normal . [facility] Comment on above: Performed By: #### E SR, CMP, CBC #### [facility] [address] [place] [address] MCH [Entitic mass] by Automa taylor countOrdered By: Tamera Randall on 04-23-2024 MCH (RBC) [Entitic mass] 31.2 pg Normal 24.7-34.3 [facility] Comment on above: Performed By: #### E SR, CMP, CBC #### [address] MCHC Auto (RBC) [Mass/Vol]Or dered By: Tamera Randall on 04-23-2024 MCHC (RBC) [Mass/Vol] 34.5 g/dL 32.0-35.0 [facility] MCV [Entitic volume] by Auto mated countOrdered By: Tamera Randall on 04-23-2024 MCV (RBC) [Entitic vol] 90.6 fL Normal 80-100 F [facility] Comment on above: Performed By: #### E SR, CMP, CBC #### [facility] [address] [place] [address] Neutrophils [#/volume] in Bl ood by Automated countOrdered By: Tamera Randall on 04-23-2024 Neutrophils (Bld) [#/Vol] 2.6 10*3/uL Normal 1.8-7.7 [facility] Comment on above: Performed By: #### E SR, CMP, CBC #### [facility] [address] [place] [address] No Panel InformationOrdered By: Tamera Randall on 04-23-2024 Estimated GFR (CKD-EPI) > 60.0 mL/Min [facility] Creatinine Clearance (Chem N/A [facility] Nucleated erythrocytes [Pres ence] in Blood by Automated countOrdered By: Tamera Randall on 04-23-2024 Nucleated RBC Auto Ql (Bld) 0.1 /100{WBC} 0-0.5 [facility] Platelet mean volume [Entiti c volume] in Blood by Automated countOrdered By: Tamera Randall on 04-23-2024 Platelet mean volume (Bld) [Entitic vol] 9.0 fL Normal 6.3-10.7 [facility] Comment on above: Performed By: #### E SR, CMP, CBC #### [facility] [address] Platelets [#/volume] in Bloo d by Automated countOrdered By: Tamera Randall on 04-23-2024 Platelets (Bld) [#/Vol] 299 10*3/uL Normal 150-450 [facility] Comment on above: Performed By: #### E SR, CMP, CBC #### [address] Potassium [Moles/volume] in Serum or PlasmaOrdered By: Tamera Randall on 04-23-2024 Potassium [Moles/Vol] 4.4 mmol/L Normal 3.5-5.1 [facility] Comment on above: Performed By: #### E SR, CMP, CBC #### [facility] [address] [place] [address] Protein [Mass/volume] in Ser um or PlasmaOrdered By: Tamera Randall on 04-23-2024 Protein [Mass/Vol] 7.2 g/dL Normal 6.4-8.[address] [facility] Comment on above: Performed By: #### E SR, CMP, CBC #### [facility] [address] [place] [address] Serum globulin measurement b y calculation (mass/volume)Ordered By: Tamera Randall on 04-23-2024 Globulin (S) [Mass/Vol] 2.8 g/dL Normal [facility] Comment on above: Performed By: #### E SR, CMP, CBC #### [address] Serum or plasma albumin/glob ulin mass ratioOrdered By: Tamera Randall on 04-23-2024 Albumin/Globulin [Mass ratio] 1.6 {ratio} Normal [facility] Comment on above: Performed By: #### E SR CMP, CBC #### [facility] [address] [place] [address] Serum or plasma anion gap de terminationOrdered By: Tamera Randall on 04-23-2024 Anion gap [Moles/Vol] 12.2 mmol/L Normal 6.0-15.0 [facility] Comment on above: Performed By: #### E SR, CMP, CBC #### [facility] [address] [place] [address] Sodium [Moles/volume] in Ser um or PlasmaOrdered By: Tamera Randall on 04-23-2024 Sodium [Moles/Vol] 130 mmol/L Low 136-[address] [facility] Comment on above: Performed By: #### E SR CMP, CBC #### [facility] [address] [place] [address] Urea nitrogen [Mass/volume] in Serum or PlasmaOrdered By: Tamera Randall on 04-23-2024 Urea nitrogen [Mass/Vol] 12 mg/dL Normal 7-25 [facility] Comment on above: Performed By: #### E RICKIE GRACE, CBC #### [facility] [address] [place] [address] Alanine aminotransferase [En zymatic activity/volume] in Serum or PlasmaOrdered By: Tamera Randall on 10-27-2023 ALT [Catalytic activity/Vol] 16 U/L 7-52 [facility] Albumin [Mass/volume] in Ser um or Plasma by Bromocresol green (BCG) dye binding methoOrdered By: Tamera Randall on 10-27-2023 Albumin BCG dye [Mass/Vol] 4.5 g/dL 3.5-5.7 [facility] Alkaline phosphatase [Enzyma tic activity/volume] in Serum or PlasmaOrdered By: Tamera Randall on 10-27-2023 ALP [Catalytic activity/Vol] 62 U/L 34-104 [facility] Aspartate aminotransferase [ Enzymatic activity/volume] in Serum or PlasmaOrdered By: Tamera Randall on 10-27-2023 AST [Catalytic activity/Vol] 20 U/L 13-39 [facility] Basophils Auto (Bld) [#/Vol] Ordered By: Tamera Randall on 10-27-2023 Basophils (Bld) [#/Vol] 0.0 10*3/uL 0.0-0.2 [facility] Basophils/100 WBC Auto (Bld) Ordered By: Tamera Randall on 10-27-2023 Basophils/100 WBC (Bld) 0.7 % . [facility] Bilirubin.total [Mass/volume ] in Serum or PlasmaOrdered By: Tamera Randall on 10-27-2023 Bilirubin [Mass/Vol] 0.6 mg/dL 0.3-1.[address] [facility] Calcium [Mass/volume] in Ser um or PlasmaOrdered By: Tamera Randall on 10-27-2023 Calcium [Mass/Vol] 9.5 mg/dL 8.6-10.[address] [facility] Carbon dioxide, total [Moles /volume] in Serum or PlasmaOrdered By: Tamera Randall on 10-27-2023 CO2 [Moles/Vol] 25.7 mmol/L 21.0-31.0 [facility] Chloride [Moles/volume] in S jl or PlasmaOrdered By: Tamera Randall on 10-27-2023 Chloride [Moles/Vol] 98 mmol/L 98-[address] [facility] Creatinine [Mass/volume] in Serum or PlasmaOrdered By: Tamera Randall on 10-27-2023 Creatinine [Mass/Vol] 0.69 mg/dL 0.60-1.20 [facility] Eosinophils Auto (Bld) [#/Vo l]Ordered By: Tamera Randall on 10-27-2023 Eosinophils (Bld) [#/Vol] 0.2 10*3/uL 0.0-0.45 [facility] Eosinophils/100 WBC Auto (Bl d)Ordered By: Tamera Randall on 10-27-2023 Eosinophils/100 WBC (Bld) 2.7 % . [facility] Erythrocyte distribution wid th Auto (RBC) [Ratio]Ordered By: Tamera Randall on 10-27-2023 Erythrocyte distribution width (RBC) [Ratio] 13.4 % 11.9-15.3 [facility] Erythrocyte sedimentation ra te by Photometric methodOrdered By: Tamera Randall on 10-27-2023 ESR Photometric method (Bld) [Velocity] 17 mm/hr 0-29 [facility] Ferritin [Mass/volume] in Se rum or PlasmaOrdered By: Gonsalo Stevens on 10-27-2023 Ferritin [Mass/Vol] 44.3 ng/mL 11.0-306.8 [facility] Folate [Mass/volume] in Seru m or PlasmaOrdered By: Gonsalo Stevens on 10-27-2023 Folate [Mass/Vol] 36.0 ng/mL >5.9 [facility] Comment on above: Folate reference ran ge: >5.9 ng/mlThe WHO technical consultation on folate and vitamin [id number] has determined that folate concentrations lessthan 4 ng/ml are considered deficient. Globulin Calc (S) [Mass/Vol] Ordered By: Tamera Randall on 10-27-2023 Globulin (S) [Mass/Vol] 2.6 g/dL F [facility] Glucose [Mass/volume] in Ser um or PlasmaOrdered By: Tamera Randall on 10-27-2023 Glucose [Mass/Vol] 96 mg/dL 70-[address] [facility] Comment on above: ADA recommended refe rence rangeRandom Glucose Reference Range is dependent on time and content of last meal. Glucose of more than 200 mg/dL in a nonstressed, ambulatory subject supports the diagnosis of Diabetes Mellitus. Hematocrit Auto (Bld) [Volum e fraction]Ordered By: Tamera Randall on 10-27-2023 Hematocrit (Bld) [Volume fraction] 35.5 % 34.0-46.4 [facility] Hemoglobin [Mass/volume] in BloodOrdered By: Tamera Randall on 10-27-2023 Hemoglobin (Bld) [Mass/Vol] 11.9 g/dL 11.8-15.4 [facility] Iron [Mass/volume] in Serum or PlasmaOrdered By: Gonsalo Stevens on 10-27-2023 Iron [Mass/Vol] 93 ug/dL 50-212 [facility] Iron binding capacity [Mass/ volume] in Serum or PlasmaOrdered By: Gonsalo Stevens on 10-27-2023 Iron binding capacity [Mass/Vol] 372 ug/dL 255-450 [facility] Iron saturation [Mass Fracti on] in Serum or PlasmaOrdered By: Gonsalo Stevens on 10-27-2023 Iron saturation [Mass fraction] 25.0 % 20-50 [facility] Leukocytes [#/volume] correc taylor for nucleated erythrocytes in Blood by Automated counOrdered By: Tamera Randall on 10-27-2023 WBC corrected for nucl RBC Auto (Bld) [#/Vol] 6.1 10*3/uL 3.8-11.6 [facility] Lymphocytes Auto (Bld) [#/Vo l]Ordered By: Tamera Randall on 10-27-2023 Lymphocytes (Bld) [#/Vol] 1.3 10*3/uL 1.00-4.8 [facility] Lymphocytes/100 WBC Auto (Bl d)Ordered By: Tamera Randall on 10-27-2023 Lymphocytes/100 WBC (Bld) 20.9 % . [facility] [facility] MCH Auto (RBC) [Entitic mass ]Ordered By: Tamera Randall on 10-27-2023 MCH (RBC) [Entitic mass] 30.4 pg 24.7-34.3 [facility] MCHC Auto (RBC) [Mass/Vol]Or dered By: Tamera Randall on 10-27-2023 MCHC (RBC) [Mass/Vol] 33.6 g/dL 32.0-35.0 [facility] MCV Auto (RBC) [Entitic vol] Ordered By: Tamera Randall on 10-27-2023 MCV (RBC) [Entitic vol] 90.4 fL 80-100 F [facility] Magnesium [Mass/volume] in S jl or PlasmaOrdered By: Gonsalo Stevens on 10-27-2023 Magnesium [Mass/Vol] 1.9 mg/dL 1.9-2.[address] [facility] Monocytes Auto (Bld) [#/Vol] Ordered By: Tamera Randall on 10-27-2023 Monocytes (Bld) [#/Vol] 0.5 10*3/uL 0.0-0.8 [facility] Monocytes/100 WBC Auto (Bld) Ordered By: Tamera Randall on 10-27-2023 Monocytes/100 WBC (Bld) 7.5 % . F [facility] Neutrophils Auto (Bld) [#/Vo l]Ordered By: Tamera Randall on 10-27-2023 Neutrophils (Bld) [#/Vol] 4.1 10*3/uL 1.8-7.7 [facility] Neutrophils/100 WBC Auto (Bl d)Ordered By: Tamera Randall on 10-27-2023 Neutrophils/100 WBC (Bld) 68.2 % . [facility] No Panel InformationOrdered By: Tamera Randall on 10-27-2023 Estimated GFR (CKD-EPI) > 60.0 mL/Min [facility] Creatinine Clearance (Chem N/A [facility] Nucleated erythrocytes [Pres ence] in Blood by Automated countOrdered By: Tamera Randall on 10-27-2023 Nucleated RBC Auto Ql (Bld) 0.1 /100{WBC} 0-0.5 [facility] Parathyrin.intact [Mass/volu me] in Serum or PlasmaOrdered By: Gonsalo Stevens on 10-27-2023 Parathyrin.intact [Mass/Vol] 29.8 pg/mL 12-88 [facility] Phosphate [Mass/volume] in S jl or PlasmaOrdered By: Gonsalo Stevens on 10-27-2023 Phosphate [Mass/Vol] 4.4 mg/dL 2.5-4.[address] [facility] Platelet mean volume Auto (B ld) [Entitic vol]Ordered By: Tamera Randall on 10-27-2023 Platelet mean volume (Bld) [Entitic vol] 9.3 fL 6.3-10.7 [facility] Platelets Auto (Bld) [#/Vol] Ordered By: Tamera Randall on 10-27-2023 Platelets (Bld) [#/Vol] 275 10*3/uL 150-450 [facility] Potassium [Moles/volume] in Serum or PlasmaOrdered By: Tamera Randall on 10-27-2023 Potassium [Moles/Vol] 4.5 mmol/L 3.5-5.1 [facility] Protein [Mass/volume] in Ser um or PlasmaOrdered By: Tamera Randall on 10-27-2023 Protein [Mass/Vol] 7.1 g/dL 6.4-8.[address] [facility] RBC Auto (Bld) [#/Vol]Ordere d By: Tamera Randall on 10-27-2023 RBC (Bld) [#/Vol] 3.93 10*6/uL 3.60-5.00 [facility] Serum or plasma albumin/glob ulin mass ratioOrdered By: Tamera Randall on 10-27-2023 Albumin/Globulin [Mass ratio] 1.7 {ratio} [facility] Serum or plasma anion gap de terminationOrdered By: Tamera Randall on 10-27-2023 Anion gap [Moles/Vol] 12.8 mmol/L 6.0-15.0 [facility] Sodium [Moles/volume] in Ser um or PlasmaOrdered By: Tamera Randall on 10-27-2023 Sodium [Moles/Vol] 132 mmol/L 136-[address] [facility] Transferrin [Mass/volume] in Serum or PlasmaOrdered By: Gonsalo Stevens on 10-27-2023 Transferrin [Mass/Vol] 266 mg/dL 203-362 [facility] Urate [Mass/volume] in Serum or PlasmaOrdered By: Gonsalo Stevens on 10-27-2023 Urate [Mass/Vol] 2.9 mg/dL 2.3-6.6 [facility] Urea nitrogen [Mass/volume] in Serum or PlasmaOrdered By: Tamera Randall on 10-27-2023 Urea nitrogen [Mass/Vol] 21 mg/dL 7-25 [facility] Vitamin B12 ser/plasOrdered By: Gonsalo Stevens on 10-27-2023 Cobalamin (Vitamin B12) [Mass/Vol] 1280 pg/mL 180-914 [facility] Vitamin D+Metabolites [Mass/ volume] in Serum or PlasmaOrdered By: Gonsalo You on 10-27-2023 Vitamin D+Metabolites [Mass/Vol] 57.7 ng/mL 30-100 [facility] Comment on above: VITAMIN D STATUS 25( [place])VITAMIN D RANGE (ng/mL) Deficient <20 Insufficient 20 to <30Sufficient 30 to 100Reference: Gail COHN,Laly EAGLE, Magui ZAZUETA, et al. Evaluation,treatment, and prevention of vitamin D deficiency; an Endocrine Society clinical practice guideline. JCEM. 2010; 96(7):1911-30. WBC Auto (Bld) [#/Vol]Ordere d By: Tamera Randall on 10-27-2023 WBC (Bld) [#/Vol] 6.1 10*3/uL 3.8-11.[address] [facility] Alanine aminotransferase [En zymatic activity/volume] in Serum or PlasmaOrdered By: Tamera Randall on 04-29-2023 ALT [Catalytic activity/Vol] 17 U/L 7-52 [facility] Albumin [Mass/volume] in Ser um or Plasma by Bromocresol green (BCG) dye binding methoOrdered By: Tamera Randall on 04-29-2023 Albumin BCG dye [Mass/Vol] 4.4 g/dL 3.5-5.7 [facility] Alkaline phosphatase [Enzyma tic activity/volume] in Serum or PlasmaOrdered By: Tamera Randall on 04-29-2023 ALP [Catalytic activity/Vol] 79 U/L 34-104 [facility] Aspartate aminotransferase [ Enzymatic activity/volume] in Serum or PlasmaOrdered By: Tamera Randall on 04-29-2023 AST [Catalytic activity/Vol] 20 U/L 13-39 [facility] Basophils Auto (Bld) [#/Vol] Ordered By: Tamera Randall on 04-29-2023 Basophils (Bld) [#/Vol] 0.0 10*3/uL 0.0-0.2 [facility] Basophils/100 WBC Auto (Bld) Ordered By: Tamera Randall on 04-29-2023 Basophils/100 WBC (Bld) 0.9 % . F [facility] Bilirubin.total [Mass/volume ] in Serum or PlasmaOrdered By: Tamera Randall on 04-29-2023 Bilirubin [Mass/Vol] 0.8 mg/dL 0.3-1.[address] [facility] Calcium [Mass/volume] in Ser um or PlasmaOrdered By: Tamera Randall on 04-29-2023 Calcium [Mass/Vol] 9.6 mg/dL 8.6-10.[address] [facility] Carbon dioxide, total [Moles /volume] in Serum or PlasmaOrdered By: Tamera Randall on 04-29-2023 CO2 [Moles/Vol] 29.3 mmol/L 21.0-31.0 [facility] Chloride [Moles/volume] in S jl or PlasmaOrdered By: Tamera Randall on 04-29-2023 Chloride [Moles/Vol] 98 mmol/L 98-[address] [facility] Creatinine [Mass/volume] in Serum or PlasmaOrdered By: Tamera Randall on 04-29-2023 Creatinine [Mass/Vol] 0.73 mg/dL 0.60-1.20 [facility] Eosinophils Auto (Bld) [#/Vo l]Ordered By: Tamera Randall on 04-29-2023 Eosinophils (Bld) [#/Vol] 0.2 10*3/uL 0.0-0.45 [facility] Eosinophils/100 WBC Auto (Bl d)Ordered By: Tamera Randall on 04-29-2023 Eosinophils/100 WBC (Bld) 4.2 % . [facility] Erythrocyte distribution wid th Auto (RBC) [Ratio]Ordered By: Tamera Randall on 04-29-2023 Erythrocyte distribution width (RBC) [Ratio] 13.3 % 11.9-15.3 [facility] Erythrocyte sedimentation ra te by Photometric methodOrdered By: Tamera Randall on 04-29-2023 ESR Photometric method (Bld) [Velocity] 17 mm/hr 0-29 [facility] Globulin Calc (S) [Mass/Vol] Ordered By: Tamera Randall on 04-29-2023 Globulin (S) [Mass/Vol] 2.7 g/dL F [facility] Glucose [Mass/volume] in Ser um or PlasmaOrdered By: Tamera Randall on 04-29-2023 Glucose [Mass/Vol] 83 mg/dL 70-[address] [facility] Comment on above: ADA recommended refe rence rangeRandom Glucose Reference Range is dependent on time and content of last meal. Glucose of more than 200 mg/dL in a nonstressed, ambulatory subject supports the diagnosis of Diabetes Mellitus. Hematocrit Auto (Bld) [Volum e fraction]Ordered By: Tamera Randall on 04-29-2023 Hematocrit (Bld) [Volume fraction] 34.2 % 34.0-46.4 [facility] Hemoglobin [Mass/volume] in BloodOrdered By: Tamera Randall on 04-29-2023 Hemoglobin (Bld) [Mass/Vol] 11.5 g/dL 11.8-15.4 [facility] Leukocytes [#/volume] correc taylor for nucleated erythrocytes in Blood by Automated counOrdered By: Tamera Randall on 04-29-2023 WBC corrected for nucl RBC Auto (Bld) [#/Vol] 4.8 10*3/uL 3.8-11.6 [facility] Lymphocytes Auto (Bld) [#/Vo l]Ordered By: Tamera Randall on 04-29-2023 Lymphocytes (Bld) [#/Vol] 1.4 10*3/uL 1.00-4.8 [facility] Lymphocytes/100 WBC Auto (Bl d)Ordered By: Tamera Randall on 04-29-2023 Lymphocytes/100 WBC (Bld) 29.9 % . [facility] MCH Auto (RBC) [Entitic mass ]Ordered By: Tamera Randall on 04-29-2023 MCH (RBC) [Entitic mass] 30.3 pg 24.7-34.3 [facility] MCHC Auto (RBC) [Mass/Vol]Or dered By: Tamera Randall on 04-29-2023 MCHC (RBC) [Mass/Vol] 33.7 g/dL 32.0-35.0 [facility] MCV Auto (RBC) [Entitic vol] Ordered By: Tamera Randall on 04-29-2023 MCV (RBC) [Entitic vol] 90.0 fL 80-100 F [facility] Monocytes Auto (Bld) [#/Vol] Ordered By: Tamera Randall on 04-29-2023 Monocytes (Bld) [#/Vol] 0.4 10*3/uL 0.0-0.8 [facility] Monocytes/100 WBC Auto (Bld) Ordered By: Tamera Randall on 04-29-2023 Monocytes/100 WBC (Bld) 8.2 % . F [facility] Neutrophils Auto (Bld) [#/Vo l]Ordered By: Tamera Randall on 04-29-2023 Neutrophils (Bld) [#/Vol] 2.7 10*3/uL 1.8-7.7 [facility] Neutrophils/100 WBC Auto (Bl d)Ordered By: Tamera Randall on 04-29-2023 Neutrophils/100 WBC (Bld) 56.8 % . [facility] No Panel InformationOrdered By: Tamera Randall on 04-29-2023 Estimated GFR (CKD-EPI) > 60.0 mL/Min [facility] Creatinine Clearance (Chem N/A [facility] Nucleated erythrocytes [Pres ence] in Blood by Automated countOrdered By: Tamera Randall on 04-29-2023 Nucleated RBC Auto Ql (Bld) 0.1 /100{WBC} 0-0.5 [facility] Platelet mean volume Auto (B ld) [Entitic vol]Ordered By: Tamera Randall on 04-29-2023 Platelet mean volume (Bld) [Entitic vol] 8.9 fL 6.3-10.7 [facility] Platelets Auto (Bld) [#/Vol] Ordered By: Tamera Randall on 04-29-2023 Platelets (Bld) [#/Vol] 276 10*3/uL 150-450 [facility] Potassium [Moles/volume] in Serum or PlasmaOrdered By: Tamera Randall on 04-29-2023 Potassium [Moles/Vol] 4.3 mmol/L 3.5-5.1 [facility] Protein [Mass/volume] in Ser um or PlasmaOrdered By: Tamera Randall on 04-29-2023 Protein [Mass/Vol] 7.1 g/dL 6.4-8.[address] [facility] RBC Auto (Bld) [#/Vol]Ordere d By: Tamera Randall on 04-29-2023 RBC (Bld) [#/Vol] 3.80 10*6/uL 3.60-5.00 [facility] Serum or plasma albumin/glob ulin mass ratioOrdered By: Tamera Randall on 04-29-2023 Albumin/Globulin [Mass ratio] 1.6 {ratio} [facility] Serum or plasma anion gap de terminationOrdered By: Tamera Randall on 04-29-2023 Anion gap [Moles/Vol] 9.0 mmol/L 6.0-15.0 [facility] Sodium [Moles/volume] in Ser um or PlasmaOrdered By: Tamera Randall on 04-29-2023 Sodium [Moles/Vol] 132 mmol/L 136-[address] [facility] Urea nitrogen [Mass/volume] in Serum or PlasmaOrdered By: Tamera Randall on 04-29-2023 Urea nitrogen [Mass/Vol] 18 mg/dL 7-25 [facility] WBC Auto (Bld) [#/Vol]Ordere d By: Tamera Randall on 04-29-2023 WBC (Bld) [#/Vol] 4.8 10*3/uL 3.8-11.[address] [facility] Alanine aminotransferase [En zymatic activity/volume] in Serum or PlasmaOrdered By: Tamera Randall on 10-25-2022 ALT [Catalytic activity/Vol] 16 U/L 7-52 [facility] Albumin [Mass/volume] in Ser um or Plasma by Bromocresol green (BCG) dye binding methoOrdered By: Tamera Randall on 10-25-2022 Albumin BCG dye [Mass/Vol] 4.4 g/dL 3.5-5.7 [facility] Alkaline phosphatase [Enzyma tic activity/volume] in Serum or PlasmaOrdered By: Tamera Randall on 10-25-2022 ALP [Catalytic activity/Vol] 72 U/L 34-104 [facility] Aspartate aminotransferase [ Enzymatic activity/volume] in Serum or PlasmaOrdered By: Tamera Randall on 10-25-2022 AST [Catalytic activity/Vol] 21 U/L 13-39 [facility] Basophils Auto (Bld) [#/Vol] Ordered By: Tamera Randall on 10-25-2022 Basophils (Bld) [#/Vol] 0.0 10*3/uL 0.0-0.2 [facility] Basophils/100 WBC Auto (Bld) Ordered By: Tamera Randall on 10-25-2022 Basophils/100 WBC (Bld) 0.7 % . F [facility] Bilirubin.total [Mass/volume ] in Serum or PlasmaOrdered By: Tamera Randall on 10-25-2022 Bilirubin [Mass/Vol] 0.7 mg/dL 0.3-1.[address] [facility] Calcium [Mass/volume] in Ser um or PlasmaOrdered By: Tamera Randall on 10-25-2022 Calcium [Mass/Vol] 9.2 mg/dL 8.6-10.[address] [facility] Carbon dioxide, total [Moles /volume] in Serum or PlasmaOrdered By: Tamera Randall on 10-25-2022 CO2 [Moles/Vol] 27.0 mmol/L 21.0-31.0 [facility] Chloride [Moles/volume] in S jl or PlasmaOrdered By: Tamera Randall on 10-25-2022 Chloride [Moles/Vol] 98 mmol/L 98-[address] [facility] Creatinine [Mass/volume] in Serum or PlasmaOrdered By: Tamera Randall on 10-25-2022 Creatinine [Mass/Vol] 0.70 mg/dL 0.60-1.20 [facility] Eosinophils Auto (Bld) [#/Vo l]Ordered By: Tamera Randall on 10-25-2022 Eosinophils (Bld) [#/Vol] 0.2 10*3/uL 0.0-0.45 [facility] Eosinophils/100 WBC Auto (Bl d)Ordered By: Tamera Randall on 10-25-2022 Eosinophils/100 WBC (Bld) 3.2 % . [facility] Erythrocyte distribution wid th Auto (RBC) [Ratio]Ordered By: Tamera Randall on 10-25-2022 Erythrocyte distribution width (RBC) [Ratio] 13.5 % 11.9-15.3 [facility] Erythrocyte sedimentation ra te by Photometric methodOrdered By: Tamera Randall on 10-25-2022 ESR Photometric method (Bld) [Velocity] 23 mm/hr 0-29 [facility] Globulin Calc (S) [Mass/Vol] Ordered By: Tamera Randall on 10-25-2022 Globulin (S) [Mass/Vol] 2.5 g/dL F [facility] Glucose [Mass/volume] in Ser um or PlasmaOrdered By: Tamera Randall on 10-25-2022 Glucose [Mass/Vol] 86 mg/dL 70-[address] [facility] Comment on above: ADA recommended refe rence rangeRandom Glucose Reference Range is dependent on time and content of last meal. Glucose of more than 200 mg/dL in a nonstressed, ambulatory subject supports the diagnosis of Diabetes Mellitus. Hematocrit Auto (Bld) [Volum e fraction]Ordered By: Tamera Randall on 10-25-2022 Hematocrit (Bld) [Volume fraction] 35.7 % 34.0-46.4 [facility] Hemoglobin [Mass/volume] in BloodOrdered By: Tamera Randall on 10-25-2022 Hemoglobin (Bld) [Mass/Vol] 12.1 g/dL 11.8-15.4 [facility] Leukocytes [#/volume] correc taylor for nucleated erythrocytes in Blood by Automated counOrdered By: Tamera Randall on 10-25-2022 WBC corrected for nucl RBC Auto (Bld) [#/Vol] 4.9 10*3/uL 3.8-11.6 [facility] Lymphocytes Auto (Bld) [#/Vo l]Ordered By: Tamera Randall on 10-25-2022 Lymphocytes (Bld) [#/Vol] 1.4 10*3/uL 1.00-4.8 [facility] Lymphocytes/100 WBC Auto (Bl d)Ordered By: Tamera Randall on 10-25-2022 Lymphocytes/100 WBC (Bld) 28.5 % . [facility] MCH Auto (RBC) [Entitic mass ]Ordered By: Tamera Randall on 10-25-2022 MCH (RBC) [Entitic mass] 30.4 pg 24.7-34.3 [facility] MCHC Auto (RBC) [Mass/Vol]Or dered By: Tamera Randall on 10-25-2022 MCHC (RBC) [Mass/Vol] 33.9 g/dL 32.0-35.0 [facility] MCV Auto (RBC) [Entitic vol] Ordered By: Tamera Randall on 10-25-2022 MCV (RBC) [Entitic vol] 89.6 fL 80-100 F [facility] Monocytes Auto (Bld) [#/Vol] Ordered By: Tamera Randall on 10-25-2022 Monocytes (Bld) [#/Vol] 0.4 10*3/uL 0.0-0.8 [facility] Monocytes/100 WBC Auto (Bld) Ordered By: Tamera Randall on 10-25-2022 Monocytes/100 WBC (Bld) 8.7 % . F [facility] Neutrophils Auto (Bld) [#/Vo l]Ordered By: Tamera Randall on 10-25-2022 Neutrophils (Bld) [#/Vol] 2.9 10*3/uL 1.8-7.7 [facility] Neutrophils/100 WBC Auto (Bl d)Ordered By: Tamera Randall on 10-25-2022 Neutrophils/100 WBC (Bld) 58.9 % . [facility] No Panel InformationOrdered By: Tamera Randall on 10-25-2022 Estimated GFR (CKD-EPI) > 60.0 mL/Min [facility] Creatinine Clearance (Chem N/A [facility] Nucleated erythrocytes [Pres ence] in Blood by Automated countOrdered By: Tamera Randall on 10-25-2022 Nucleated RBC Auto Ql (Bld) 0.2 /100{WBC} 0-0.5 [facility] Platelet mean volume Auto (B ld) [Entitic vol]Ordered By: Tamera Randall on 10-25-2022 Platelet mean volume (Bld) [Entitic vol] 8.6 fL 6.3-10.7 [facility] Platelets Auto (Bld) [#/Vol] Ordered By: Tamera Randall on 10-25-2022 Platelets (Bld) [#/Vol] 266 10*3/uL 150-450 [facility] Potassium [Moles/volume] in Serum or PlasmaOrdered By: Tamera Randall on 10-25-2022 Potassium [Moles/Vol] 4.1 mmol/L 3.5-5.1 [facility] Protein [Mass/volume] in Ser um or PlasmaOrdered By: Tamera Randall on 10-25-2022 Protein [Mass/Vol] 6.9 g/dL 6.4-8.[address] [facility] RBC Auto (Bld) [#/Vol]Ordere d By: Tamera Randall on 10-25-2022 RBC (Bld) [#/Vol] 3.99 10*6/uL 3.60-5.00 [facility] Serum or plasma albumin/glob ulin mass ratioOrdered By: Tamera Randall on 10-25-2022 Albumin/Globulin [Mass ratio] 1.8 {ratio} [facility] Serum or plasma anion gap de terminationOrdered By: Tamera Randall on 10-25-2022 Anion gap [Moles/Vol] 12.1 mmol/L 6.0-15.0 [facility] Sodium [Moles/volume] in Ser um or PlasmaOrdered By: Tamera Randall on 10-25-2022 Sodium [Moles/Vol] 133 mmol/L 136-[address] [facility] Urea nitrogen [Mass/volume] in Serum or PlasmaOrdered By: Tamera Randall on 10-25-2022 Urea nitrogen [Mass/Vol] 15 mg/dL 7-25 [facility] WBC Auto (Bld) [#/Vol]Ordere d By: Tamera Randall on 10-25-2022 WBC (Bld) [#/Vol] 4.9 10*3/uL 3.8-11.[address] [facility] XR Knee Complete Right*on XR Knee Complete Right* HISTORY: Posteri or knee pain with redness and swelling. COMPARISON: Radiograph 01/21/2019 TECHNIQUE: AP, lateral, and oblique views. FINDINGS: No acute fracture or dislocation. Joint spaces are maintained. Small joint effusion. Soft tissues are within normal limits. IMPRESSION: No acute osseous abnormality. Report reported and signed by Juan Wan on 07/19/2022 1225 Normal [place] [employer] VITAMIN D 25 OHon 07-15-2022 VIT D 25-OH 55.7 ng/mL Normal [facility] Comment on above: Performed By: #### V ITAD #### [facility] [address], [place] [address] Dr. Aniceto Elizondo VIT D RANGES SEE BELOW Normal [facility] Comment on above: Result Comment: <20 ng/mL Vit D deficient 20 - <30 ng/mL Vit D insufficient 30 - 100 ng/mL Vit D sufficient >100 ng/mL Potential Toxicity Performed By: #### V ITAD #### [facility] [address], [place] [address] Dr. Aniceto Elizondo Albumin [Mass/volume] in Ser um or PlasmaOrdered By: Tamera Randall on 04-25-2022 Albumin [Mass/Vol] 4.0 g/dL 3.2-5.[address] [facility] Basophils Auto (Bld) [#/Vol] Ordered By: Tamera Randall on 04-25-2022 Basophils (Bld) [#/Vol] 0.1 10*3/uL 0.0-0.2 [facility] Basophils/100 WBC Auto (Bld) Ordered By: Tamera Randall on 04-25-2022 Basophils/100 WBC (Bld) 1.1 % . F [facility] Creatinine and Glomerular fi ltration rate.predicted panel (S/P/Bld)Ordered By: Tamera Randall on 04-25-2022 Creatinine [Mass/Vol] 0.64 mg/dL 0.44-1.03 [facility] Eosinophils Auto (Bld) [#/Vo l]Ordered By: Tamera Randall on 04-25-2022 Eosinophils (Bld) [#/Vol] 0.2 10*3/uL 0.0-0.45 [facility] Eosinophils/100 WBC Auto (Bl d)Ordered By: Tamera Randall on 04-25-2022 Eosinophils/100 WBC (Bld) 2.9 % . [facility] Erythrocyte distribution wid th Auto (RBC) [Ratio]Ordered By: Tamera Randall on 04-25-2022 Erythrocyte distribution width (RBC) [Ratio] 13.6 % 11.9-15.3 [facility] Erythrocyte sedimentation ra te by Photometric methodOrdered By: Tamera Randall on 04-25-2022 ESR Photometric method (Bld) [Velocity] 21 mm/hr 0-29 [facility] Estimated glomerular filtrat ion rate (GFR) non- AmericanOrdered By: Tamera Randall on 04-25-2022 GFR/1.73 sq M.predicted among non-blacks MDRD (S/P/Bld) [Vol rate/Area] > 60 mL/Min [facility] Globulin Calc (S) [Mass/Vol] Ordered By: Tamera Randall on 04-25-2022 Globulin (S) [Mass/Vol] 2.7 g/dL [facility] Hematocrit Auto (Bld) [Volum e fraction]Ordered By: Tamera Randall on 04-25-2022 Hematocrit (Bld) [Volume fraction] 35.1 % 34.0-46.4 [facility] Hemoglobin [Mass/volume] in BloodOrdered By: Tamera Randall on 04-25-2022 Hemoglobin (Bld) [Mass/Vol] 11.9 g/dL 11.8-15.4 [facility] - Hematology and Cell countsOrdered By: Tamera Randall on 04-25-2022 Nucleated RBC/100 WBC (Bld) [Ratio] 0.1 % 0-0.5 [facility] Leukocytes [#/volume] in Blo od by Automated countOrdered By: Tamera Randall on 04-25-2022 WBC (Bld) [#/Vol] 5.6 10*3/uL 4.5-11.[address] [facility] Lymphocytes Auto (Bld) [#/Vo l]Ordered By: Tamera Randall on 04-25-2022 Lymphocytes (Bld) [#/Vol] 1.7 10*3/uL 1.00-4.8 [facility] Lymphocytes/100 WBC Auto (Bl d)Ordered By: Tamera Randall on 04-25-2022 Lymphocytes/100 WBC (Bld) 29.8 % . [facility] MCH Auto (RBC) [Entitic mass ]Ordered By: Tamera Randall on 04-25-2022 MCH (RBC) [Entitic mass] 30.7 pg 24.7-34.3 [facility] MCHC Auto (RBC) [Mass/Vol]Or dered By: Tamera Radnall on 04-25-2022 MCHC (RBC) [Mass/Vol] 33.9 g/dL 32.0-35.0 [facility] MCV Auto (RBC) [Entitic vol] Ordered By: Tamera Randall on 04-25-2022 MCV (RBC) [Entitic vol] 90.6 fL 80-100 [facility] Monocytes Auto (Bld) [#/Vol] Ordered By: Tamera Randall on 04-25-2022 Monocytes (Bld) [#/Vol] 0.5 10*3/uL 0.0-0.8 [facility] Monocytes/100 WBC Auto (Bld) Ordered By: Tamera Randall on 04-25-2022 Monocytes/100 WBC (Bld) 8.4 % . [facility] Neutrophils Auto (Bld) [#/Vo l]Ordered By: Tamera Randall on 04-25-2022 Neutrophils (Bld) [#/Vol] 3.2 10*3/uL 1.8-7.7 [facility] Neutrophils/100 WBC Auto (Bl d)Ordered By: Tamera Randall on 04-25-2022 Neutrophils/100 WBC (Bld) 57.8 % . [facility] No Panel InformationOrdered By: Tamera Randall on 04-25-2022 Estimated GFR () > 60 mL/Min [facility] Comment on above: GFR estimated refere nce range: According to KDOQI guidelines, <60 ml/min/1.73m2 is sufficient to diagnose a patient with chronic kidney disease. Pharmacy Creatinine Clearance (Chem N/A [facility] Platelet mean volume Auto (B ld) [Entitic vol]Ordered By: Tamera Randall on 04-25-2022 Platelet mean volume (Bld) [Entitic vol] 8.7 fL 6.3-10.7 [facility] Platelets Auto (Bld) [#/Vol] Ordered By: Tamera Randall on 04-25-2022 Platelets (Bld) [#/Vol] 353 10*3/uL 150-450 [facility] Protein [Mass/volume] in Ser um or PlasmaOrdered By: Tamera Randall on 04-25-2022 Protein [Mass/Vol] 6.7 g/dL 6.1-7.[address] [facility] RBC Auto (Bld) [#/Vol]Ordere d By: Tamera Randall on 04-25-2022 RBC (Bld) [#/Vol] 3.87 10*6/uL 3.60-5.00 [facility] Serum or plasma alanine craig otransferase measurement without P-5'-P (enzymatic activiOrdered By: Tamera Randall on 04-25-2022 ALT No additional P-5'-P [Catalytic activity/Vol] 23 U/L 60 [facility] Serum or plasma albumin/glob ulin mass ratioOrdered By: Tamera Randall on 04-25-2022 Albumin/Globulin [Mass ratio] 1.5 {ratio} [facility] Serum or plasma alkaline lakisha sphatase measurement (enzymatic activity/volume)Ordered By: Tamera Randall on 04-25-2022 ALP [Catalytic activity/Vol] 72 U/L 32-92 [facility] Serum or plasma anion gap de terminationOrdered By: Tamera Randall on 04-25-2022 Anion gap [Moles/Vol] 14.0 mmol/L 6.0-15.0 [facility] Serum or plasma aspartate am inotransferase measurement (enzymatic activity/volume)Ordered By: Tamera Randall on 04-25-2022 AST [Catalytic activity/Vol] 26 U/L 1042 [facility] Serum or plasma calcium yvonne urement (mass/volume)Ordered By: Tamera Randall on 04-25-2022 Calcium [Mass/Vol] 9.8 mg/dL 8.2-10.[address] [facility] Serum or plasma chloride elpidio surement (moles/volume)Ordered By: Tamera Randall on 04-25-2022 Chloride [Moles/Vol] 95 mmol/L 95-[address] [facility] Serum or plasma glucose yvonne urement (mass/volume)Ordered By: Tamera Randall on 04-25-2022 Glucose [Mass/Vol] 92 mg/dL 70-[address] [facility] Comment on above: ADA recommended refe rence rangeRandom Glucose Reference Range is dependent on time and content of last meal. Glucose of more than 200 mg/dL in a nonstressed, ambulatory subject supports the diagnosis of Diabetes Mellitus. Serum or plasma potassium me asurement (moles/volume)Ordered By: Tamera Randall on 04-25-2022 Potassium [Moles/Vol] 4.6 mmol/L 3.5-5.1 [facility] Serum or plasma sodium measu rement (moles/volume)Ordered By: Tamera Randall on 04-25-2022 Sodium [Moles/Vol] 130 mmol/L 136-[address] [facility] Serum or plasma total biliru bin measurement (mass/volume)Ordered By: Tamera Randall on 04-25-2022 Bilirubin [Mass/Vol] 0.7 mg/dL 0.3-1.[address] [facility] Serum or plasma total carbon dioxide measurement (moles/volume)Ordered By: Tamera Randall on 04-25-2022 CO2 [Moles/Vol] 25.6 mmol/L 22.0-30.0 [facility] Serum or plasma urea nitroge n measurement (mass/volume)Ordered By: Tamera Randall on 04-25-2022 Urea nitrogen [Mass/Vol] 13 mg/dL - [facility] CT Abdomen/Pelvis w/ Contras ton 04-17-2022 [...] by Ky Carvalho on 04/17/2022 1540 Normal [facility] Reservation Agent XR Abdomen 2 Viewson 022 XR Abdomen [...] by Juan Wan on 04/10/2022 1614 Normal [facility] Covid-19 PCR (CVDTBH)on 02-05 SARS-CoV-2 (COVID-19) RNA NICOLASA+probe Ql (Unsp spec) Not detected Normal NOT DETECTED [facility] Comment on above: Result Comment: This test is not yet approved or cleared by the [place] FDA. When there are no FDA-approved or cleared tests available, and other criteria are met, FDA can make tests available under an emergency access mechanism called an Emergency Use Authorization (EUA). The EUA for this test is supported by the [place] of Health and Human Service's (HHS's) declaration [...] SARS-CoV-2. Performed By: #### C VDTBH #### [facility] [address] [place] [address] Dr. Aniceto Elizondo LIPID PROFILEon 02-11-2022 CHOL-HDL RATIO NORM SEE BELOW Normal [facility] Comment on above: Result Comment: 3.3 - 4.4 LOW RISK 4.4 - 7.1 AVERAGE RISK 7.1 - 11.0 MODERATE RISK >11.0 HIGH RISK Performed By: #### L IPID, CMP #### [facility] [address] [place] [address] Dr. Aniceto Elizondo Cholesterol [Mass/Vol] 179 mg/dL Normal <=200 [facility] Comment on above: Performed By: #### L IPID, CMP #### [facility] [address] [place] [address] Dr. Aniceto Elizondo Cholesterol in HDL [Mass/Vol] 44 mg/dL Normal 40-60 [facility] Comment on above: Performed By: #### L IPID, CMP #### [facility] [address] [place] [address] Dr. Aniceto Elizondo Cholesterol in LDL [Mass/Vol] 94.2 mg/dL Normal [facility] Comment on above: Performed By: #### L IPID, CMP #### [facility] [address] [place] [address] Dr. Aniceto Elizondo Cholesterol.total/Joselyn sterol in HDL [Mass ratio] 4.1 {ratio} Normal [facility] Comment on above: Performed By: #### L IPID, CMP #### [facility] [address] [address] [address] Aniceto Elizondo HDL NORMAL > or = 60 mg/dl - LO W CARDIOVASCULAR RISK <40 mg/dl - HIGH CARDIOVASCULAR RISK Normal [facility] Comment on above: Performed By: #### L IPID, CMP #### [facility] [address] [address] [address] Aniceto Elizondo LDL CALC NORMAL SEE BELOW Normal [facility] Comment on above: Result Comment: <100 mg/dl OPTIMAL 100 - 129 mg/dl NEAR OR ABOVE OPTIMAL 130 - 159 mg/dl BORDERLINE HIGH 160 - 189 mg/dl HIGH >190 mg/dl VERY HIGH Performed By: #### L IPID, CMP #### [facility] [address] [address] [address] Aniceto Elizondo Triglyceride [Mass/Vol] 204 mg/dL Critically high <=150 [facility] Comment on above: Performed By: #### L IPID, CMP #### [facility] [address] [address] [address] Aniceto Elizondo VLDL CALC 40.8 mg/dL Normal [facility] Comment on above: Performed By: #### L IPID, CMP #### [facility] [address] [place] [address] Dr. Aniceto Elizondo PROF 14(COMP METB)on 022 Albumin [Mass/Vol] 3.8 g/dL Normal 3.4-5.0 [facility] Comment on above: Performed By: #### L IPID, CMP #### [facility] [address] [address] [address] Aniceto Elizondo Albumin/Globulin [Mass ratio] 1.0 {ratio} Normal [facility] Comment on above: Performed By: #### L IPID, CMP #### [facility] [address] [address] [address] Aniceto Elizondo ALP [Catalytic activity/Vol] 76 U/L Normal 46-116 [facility] Comment on above: Performed By: #### L IPID, CMP #### [facility] [address] [address] [address] Aniceto Elizondo ALT [Catalytic activity/Vol] 24 U/L Normal 14-59 [facility] Comment on above: Performed By: #### L IPID, CMP #### [facility] [address] [address] [address] Aniceto Elizondo Anion gap [Moles/Vol] 14.2 mmol/L Normal [facility] Comment on above: Performed By: #### L IPID, CMP #### [facility] [address] [address] [address] Aniceto Elizondo AST [Catalytic activity/Vol] 25 U/L Normal 15-37 [facility] Comment on above: Performed By: #### L IPID, CMP #### [facility] [address] [address] [address] Aniceto Elizondo Bilirubin [Mass/Vol] 0.6 mg/dL Normal 0.2-1.0 [facility] Comment on above: Performed By: #### L IPID, CMP #### [facility] [address] [address] [address] Aniceto Elizondo Calcium [Mass/Vol] 9.1 mg/dL Normal 8.5-10.1 [facility] Comment on above: Performed By: #### L IPID, CMP #### [facility] [address] [place] [address] Dr. Aniceto Elizondo Chloride [Moles/Vol] 99 mmol/L Normal 98-107 [facility] Comment on above: Performed By: #### L IPID, CMP #### [facility] [address] [address] [address] Aniceto Elizondo CO2 [Moles/Vol] 28.3 mmol/L Normal 21.0-32.0 [facility] Comment on above: Performed By: #### L IPID, CMP #### [facility] [address] [address] [address] Aniceto Elizondo Creatinine [Mass/Vol] 0.64 mg/dL Normal 0.55-1.02 [facility] Comment on above: Performed By: #### L IPID, CMP #### [facility] [address] [address] [address] Aniceto Elizondo EGFR-AF TURKMEN >60 Normal >=60 [facility] Comment on above: Performed By: #### L IPID, CMP #### [facility] [address] [address] [address] Aniceto Elizondo EGFR-NON AF TURKMEN >60 Normal >=60 [facility] Comment on above: Performed By: #### L IPID, CMP #### [facility] [address] [address] [address] Aniceto Elizondo Globulin (S) [Mass/Vol] 3.7 g/dL Normal [facility] Comment on above: Performed By: #### L IPID, CMP #### [facility] [address] [address] [address] Aniceto Elizondo Glucose [Mass/Vol] 102 mg/dL Normal 74-106 [facility] Comment on above: Performed By: #### L IPID, CMP #### [facility] [address] [address] [address] Aniceto Elizondo Potassium [Moles/Vol] 4.5 mmol/L Normal 3.5-5.1 [facility] Comment on above: Performed By: #### L IPID, CMP #### [facility] [address] [address] [address] Aniceto Elizondo Protein [Mass/Vol] 7.5 g/dL Normal 6.4-8.2 [facility] Comment on above: Performed By: #### L IPID, CMP #### [facility] [address] [address] [address] Aniceto Elizondo Sodium [Moles/Vol] 137 mmol/L Normal 136-145 [facility] Comment on above: Performed By: #### L IPID, CMP #### [facility] [address] [address] [address] Aniceto Elizondo Urea nitrogen [Mass/Vol] 12.0 mg/dL Normal 7.0-18.0 [facility] Comment on above: Performed By: #### L IPID, CMP #### [facility] [address] [address] [address] Aniceto Elizondo Urea nitrogen/Creatinine [Mass ratio] 18.8 mg/mg Normal [facility] Comment on above: Performed By: #### L IPID, CMP #### [facility] [address] [address] [address] Aniceto Elizondo COVID-19 SOFIAOrdered By: Maritza Gutierrez on 01-29-2022 SARS-CoV+SARS-CoV-2 (COVID-19) Ag IA.rapid Ql (Resp) Negative Negative [facility] Comment on above: This is a duplicate Michelle SARS Antigen (DUNG) result to be used for statistical tracking purpose only. No Panel InformationOrdered By: Jordan Gutierrez on 01-29-2022 SARS Antigen (LFIA) [facility] HEMOGRAM AND PLATELon 2021 Hematocrit (Bld) [Volume fraction] 34.5 % Critically low 36.0-48.0 [facility] Comment on above: Performed By: #### H H #### [facility] [address] [address] [address] Aniceto Elizondo Hemoglobin (Bld) [Mass/Vol] 11.6 g/dL Critically low 12.0-16.0 [facility] Comment on above: Performed By: #### H H #### [facility] [address] [address] [address] Aniceto Elizondo MCH (RBC) [Entitic mass] 30.9 pg Normal 26.7-34.0 [facility] Comment on above: Performed By: #### H H #### [facility] [address] [address] [address] Aniceto Elizondo MCHC (RBC) [Mass/Vol] 33.6 g/dL Normal 29.9-35.2 [facility] Comment on above: Performed By: #### H H #### [facility] [address] [address] [address] Aniceto Elizondo MCV (RBC) [Entitic vol] 91.8 fL Normal 81.0-99.0 [facility] Comment on above: Performed By: #### H H #### [facility] [address] [address] [address] Aniceto Elizondo PLT 294 103/ul Normal 150-450 [facility] Comment on above: Performed By: #### H H #### [facility] [address] [address] [address] Aniceto Elizondo RBC 3.76 106/ul Critically low 4.20-5.40 [facility] Comment on above: Performed By: #### H H #### [facility] [address] [address] [address] Aniceto Elizondo WBC 6.0 103/ul Normal 4.0-11.0 [facility] Comment on above: Performed By: #### H H #### [facility] [address] [place] [address] Dr. Aniceto Elizondo MAGNESIUMon 11-21-2021 Magnesium [Mass/Vol] 2.2 mg/dL Normal 1.8-2.4 [facility] Comment on above: Performed By: #### U RAMON, RENAL, MG #### [facility] [address] [place] [address] Dr. Aniceto Elizondo RENAL FUNCTION PANELon 11-21 Albumin [Mass/Vol] 3.8 g/dL Normal 3.4-5.0 [facility] Comment on above: Performed By: #### U RAMON, RENAL, MG #### [facility] [address] [place] [address] Dr. Aniceto Elizondo Calcium [Mass/Vol] 8.9 mg/dL Normal 8.5-10.1 [facility] Comment on above: Performed By: #### U RAMON, RENAL, MG #### [facility] [address] [place] [address] Dr. Aniceto Elizondo Chloride [Moles/Vol] 97 mmol/L Critically low 98-107 [facility] Comment on above: Performed By: #### U RAMON, RENAL, MG #### [facility] [address] [place] [address] Dr. Aniceto Elizondo CO2 [Moles/Vol] 27.1 mmol/L Normal 21.0-32.0 [facility] Comment on above: Performed By: #### U RAMON, RENAL, MG #### [facility] [address] [address] [address] Aniceto Elizondo Creatinine [Mass/Vol] 0.66 mg/dL Normal 0.55-1.02 [facility] Comment on above: Performed By: #### U RAMON, RENAL, MG #### [facility] [address] [address] [address] Aniceto Elizondo EGFR-AF TURKMEN >60 Normal >=60 [facility] Comment on above: Performed By: #### U RAMON, RENAL, MG #### [facility] [address] [address] [address] Aniceto Elizondo EGFR-NON AF TURKMEN >60 Normal >=60 [facility] Comment on above: Performed By: #### U RAMON, RENAL, MG #### [facility] [address] [address] [address] Aniceto Elizondo Glucose [Mass/Vol] 101 mg/dL Normal 74-106 [facility] Comment on above: Performed By: #### U RAMON, RENAL, MG #### [facility] [address] [address] [address] Aniceto Elizondo Phosphate [Mass/Vol] 4.1 mg/dL Normal 2.6-4.7 [facility] Comment on above: Performed By: #### U RAMON, RENAL, MG #### [facility] [address] [address] [address] Aniceto Elizondo Potassium [Moles/Vol] 4.5 mmol/L Normal 3.5-5.1 [facility] Comment on above: Performed By: #### U RAMON, RENAL, MG #### [facility] [address] [address] [address] Aniceto Elizondo Sodium [Moles/Vol] 131 mmol/L Critically low 136-145 Th [facility] Comment on above: Performed By: #### U RAMON, RENAL, MG #### [facility] [address] [address] [address] Aniceto Elizondo Urea nitrogen [Mass/Vol] 16.0 mg/dL Normal 7.0-18.0 [facility] Comment on above: Performed By: #### U RAMON, RENAL, MG #### [facility] [address] [place] [address] Dr. Aniceto Elizondo UA RANDOM W/MICROSCOPICon BACTERIA NONE SEEN Normal NONE SEEN [facility] Comment on above: Performed By: #### U AMIC #### [facility] [address] [place] [address] Dr. Aniceto Elizondo Bilirubin Ql (U) Negative Normal NEGATIVE [facility] Comment on above: Performed By: #### U AMIC #### [facility] [address] [place] [address] Dr. Aniceto Elizondo CAST NONE SEEN Normal NONE SEEN [facility] Comment on above: Performed By: #### U AMIC #### [facility] [address] [address] [address] Aniceto Elizondo Clarity (U) CLEAR Normal CLEAR [facility] Comment on above: Performed By: #### U AMIC #### [facility] [address] [place] [address] Dr. Aniceto Elizondo Color (U) YELLOW Normal YELLOW [facility] Comment on above: Performed By: #### U AMIC #### [facility] [address] [place] [address] Dr. Aniceto Elizondo Crystals LM Nom (Urine sed) NONE SEEN Normal NONE SEEN [facility] Comment on above: Performed By: #### U AMIC #### [facility] [address] [place] [address] Dr. Aniceto Elizondo Epithelial cells LM Ql (Urine sed) FEW Abnormal NONE SEEN /RARE [facility] Comment on above: Performed By: #### U AMIC #### [facility] [address] [place] [address] Dr. Aniceto Elizondo Glucose Ql (U) Negative Normal NEGATIVE [facility] Comment on above: Performed By: #### U AMIC #### [facility] [address] [place] [address] Dr. Aniceto Elizondo Hemoglobin Ql (U) Negative Normal NEGATIVE [facility] Comment on above: Performed By: #### U AMIC #### [facility] [address] [address] [address] Aniceto Elizondo Ketones Ql (U) Negative Normal NEGATIVE [facility] Comment on above: Performed By: #### U AMIC #### [facility] [address] [place] [address] Dr. Aniceto Elizondo LEUKOCYTES Negative Normal NEGATIVE [facility] Comment on above: Performed By: #### U AMIC #### [facility] [address] [place] [address] Dr. Aniceto Elizondo MUCOUS NONE SEEN Normal NONE SEEN [facility] Comment on above: Performed By: #### U AMIC #### [facility] [address] [place] [address] Dr. Aniceto Elizondo Nitrite Ql (U) Negative Normal NEGATIVE [facility] Comment on above: Performed By: #### U AMIC #### [facility] [address] [place] [address] Dr. Aniceto Elizondo pH (U) 7.0 [pH] Normal 5-9 [facility] Comment on above: Performed By: #### U AMIC #### [facility] [address] [place] [address] Dr. Aniceto Elizondo RBC NONE SEEN Abnormal 0-2 [facility] Comment on above: Performed By: #### U AMIC #### [facility] [address] [place] [address] Dr. Aniceto Elizondo SPEC GRAVITY <=1.005 Abnormal 1.005-<=1.02 5 [facility] Comment on above: Performed By: #### U AMIC #### [facility] [address] [place] [address] Dr. Aniceto Elizondo UA PROTEIN Negative Normal NEGATIVE/ TRACE [facility] Comment on above: Performed By: #### U AMIC #### [facility] [address] [place] [address] Dr. Aniceto Elizondo Urobilinogen Qn (U) 0.2 {Ada'U}/dL Normal 0.2 - 1. 0 [facility] Comment on above: Performed By: #### U AMIC #### [facility] [address] [place] [address] Dr. Aniceto Elizondo WBC NONE SEEN Normal NONE SEEN [facility] Comment on above: Performed By: #### U AMIC #### [facility] [address] [place] [address] Dr. Aniceto Elizondo URIC ACID SERUMon 11-21-2021 Urate [Mass/Vol] 3.4 mg/dL Normal 2.6-6.0 [facility] Comment on above: Performed By: #### U RAMON, RENAL, MG #### [facility] [address] [place] [address] Dr. Aniceto Elizondo URINE T PROTEIN CREAT RATIOo n 11-21-2021 UR PROT CREAT RAT 0.40 Normal [facility] Comment on above: Performed By: #### U RTPCR #### [facility] [address] [place] [address] Dr. Aniceto lEizondo UR TOTAL PROTEIN <6.0 Normal <=12.0 [facility] Comment on above: Performed By: #### U RTPCR #### [facility] [address] [place] [address] Dr. Aniceto Elizondo URINE CREAT 14.89 mg/dL Critically low 20.00-300.00 [facility] Comment on above: Performed By: #### U RTPCR #### [facility] [address] [place] [address] Dr. Aniceto Elizondo VITAMIN D 25 OHon 11-21-2021 VIT D 25-OH 50.4 ng/mL Normal [facility] Comment on above: Performed By: #### V ITAD #### [facility] [address] [place] [address] Dr. Aniceto Elizondo VIT D RANGES SEE BELOW Normal [facility] Comment on above: Result Comment: <20 ng/mL Vit D deficient 20 - <30 ng/mL Vit D insufficient 30 - 100 ng/mL Vit D sufficient >100 ng/mL Potential Toxicity Performed By: #### V ITAD #### [facility] [address] [place] [address] Dr. Aniceto Diaz 05-03-2021 RACIEL Office Visit (KANDACE ) SARI ABBASI ([id number]) 1950 F Date Time Provider Department 05/03/21 11:30 AM JOSE G WELLS During your visit today, we recorded the following information about you: Pulse Blood pressure 83/minute 182/94 Jose G Wells MD 05/04/2021 10:18 AM Unsigned [employer] NAME: SARI ABBASI CLINIC NO: [id number] DATE OF SERVICE: 05/03/2021 DATE OF : [...] She has had an ultrasound done at [facility] that was done in February which [...] at a goal of less than 140. Jsoe G Wells M.D. 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 THIS DOCUMENT IS NOT AVAILABLE FOR PATIENT CARE * * * Document text: NAME: SARI ABBASI CLINIC NO: [id number] DATE OF SERVICE: 05/03/2021 DATE OF : 1950 She is here to see me in follow-up for a le (more content not included)... Normal [facility] 02-22-2021 [facility] Telephone (PODCCP) SARI ABBASI ([id number]) 1950 F Date Time Provider Department 02/22/21 [facility] During your visit today, we recorded the following information about you: Shirley Shay 02/22/2021 2:43 PM Signed Reason for call: Mrs Abbasi called and she would like to schedule a follow up appointment with DR Wells , last seen 04/26/2019. Home and cell number : [phone] Diagnosis Renal Artery stenosis Kind Regards, Shirley Shah Coord 02/23/2021 5:13 PM Signed Sari Abbasi appointments have been scheduled accordingly. Patient has been notified via telephone and [employer]Log[employer] and appointment schedule sent via US Mail [...] Status:Closed by SHIRLEY SHAY on 02/22/21 Normal [facility] Albumin [Mass/volume] in Ser um or Plasmaon 07-05-2020 Albumin [Mass/Vol] 4.2 g/dL 3.2-5.5 [facility] Automated basophil %on 07-05 Basophils/100 WBC (Bld) 0.6 % F [facility] Automated basophil counton 1 Basophils (Bld) [#/Vol] 0.0 10*3/uL 0.0-0.2 [facility] Automated blood lymphocyte c ount (number/volume)on 07-05-2020 Lymphocytes (Bld) [#/Vol] 1.2 10*3/uL 1.00-4.8 [facility] Automated blood lymphocyte c ount as percentage of total leukocyteson 07-05-2020 Lymphocytes/100 WBC (Bld) 16.6 % [facility] Automated blood monocyte cou nton 07-05-2020 Monocytes (Bld) [#/Vol] 0.4 10*3/uL 0.0-0.8 [facility] Automated blood platelet cou nt (count/volume)on 07-05-2020 Platelets (Bld) [#/Vol] 282 10*3/uL 150-450 [facility] Automated blood platelet elpidio n volume measurementon 07-05-2020 Platelet mean volume (Bld) [Entitic vol] 8.7 fL 6.3-10.7 [facility] Automated eosinophil %on Eosinophils/100 WBC (Bld) 0.4 % [facility] Automated eosinophil counton 07-05-2020 Eosinophils (Bld) [#/Vol] 0.0 10*3/uL 0.0-0.45 [facility] Automated erythrocyte distri bution width ratioon 07-05-2020 Erythrocyte distribution width (RBC) [Ratio] 13.7 % 11.9-15.3 [facility] Automated erythrocyte mean c orpuscular hemoglobin (mass per erythrocyte)on 07-05-2020 MCH (RBC) [Entitic mass] 30.2 pg 24.7-34.3 [facility] Automated erythrocyte mean c orpuscular hemoglobin concentration measurement (mass/volon 07-05-2020 MCHC (RBC) [Mass/Vol] 33.1 g/dL 32.0-35.0 [facility] Automated erythrocyte mean c orpuscular volumeon 07-05-2020 MCV (RBC) [Entitic vol] 91.1 fL 80-100 F [facility] Automated monocyte %on 07-05 Monocytes/100 WBC (Bld) 5.3 % [facility] Automated neutrophil %on Neutrophils/100 WBC (Bld) 77.1 % [facility] Blood erythrocytes automated count (number/volume)on 07-05-2020 RBC (Bld) [#/Vol] 3.94 10*6/uL 3.60-5.00 [facility] Blood hemoglobin measurement (mass/volume)on 07-05-2020 Hemoglobin (Bld) [Mass/Vol] 11.9 g/dL 11.8-15.4 [facility] Blood leukocytes automated c ount (number/volume)on 07-05-2020 WBC (Bld) [#/Vol] 7.1 10*3/uL 4.5-11.0 [facility] Blood neutrophil count by au tomated method (number/volume)on 07-05-2020 Neutrophils (Bld) [#/Vol] 5.4 10*3/uL 1.8-7.7 [facility] Cholesterol [Mass/volume] in Serum or Plasmaon 07-05-2020 Cholesterol [Mass/Vol] 173 mg/dL 140-200 [facility] on above: Chol less than 200 m g/dl low riskChol 201-239 mg/dl borderline riskChol 240 mg/dl and greater high risk Cholesterol in LDL [Mass/vol ume] in Serum or Plasma by calculationon 07-05-2020 Cholesterol in LDL [Mass/Vol] 93 mg/dL 0-100 [facility] Comment on above: LDL ATP III CLASSIFI CATIONLDL less than 100 mg/dL OptimalLDL 100-129 mg/dL Near or above optimalLDL 130-159 mg/dL Borderline highLDL 160-189 mg/dL HighLDL greater than 189 mg/dL Very high Cholesterol in VLDL [Mass/vo lume] in Serum or Plasma by calculationon 07-05-2020 Cholesterol in VLDL [Mass/Vol] 17 mg/dL [facility] Erythrocyte sedimentation ra te by Photometric methodon 07-05-2020 ESR Photometric method (Bld) [Velocity] 19 mm/hr 0-29 [facility] Estimated glomerular filtrat ion rate (GFR) non- Americanon 07-05-2020 GFR/1.73 sq M predicted among non-blacks MDRD (S/P/Bld) [Vol rate/Area] mL/min/{1.73_m2} [facility] Hematocrit [Volume Fraction] of Blood by Automated counton 07-05-2020 Hematocrit (Bld) [Volume fraction] 35.9 % 34.0-46.4 [facility] Otheron 07-05-2020 GFR/1.73 sq M.predicted MDRD (S/P/Bld) [Vol rate/Area] mL/min/{1.73_m2} [facility] Comment on above: GFR estimated refere nce range: According to KDOQI guidelines, <60 ml/min/1.73m2 is sufficient to diagnose a patient with chronic kidney disease. Nucleated RBC/100 WBC (Bld) [Ratio] 0.0 % 0-0.5 [facility] Creatinine Clearance (Chem N/A [facility] Protein [Mass/volume] in Ser um or Plasmaon 07-05-2020 Protein [Mass/Vol] 7.2 g/dL 6.1-7.9 [facility] Serum globulin measurement b y calculation (mass/volume)on 07-05-2020 Globulin (S) [Mass/Vol] 3.0 g/dL [facility] Serum or plasma alanine craig otransferase measurement without P-5'-P (enzymatic activion 07-05-2020 ALT No additional P-5'-P [Catalytic activity/Vol] 23 U/L [facility] Serum or plasma albumin/glob ulin mass ratioon 07-05-2020 Albumin/Globulin [Mass ratio] 1.4 {ratio} [facility] Serum or plasma alkaline lakisha sphatase measurement (enzymatic activity/volume)on 07-05-2020 ALP [Catalytic activity/Vol] 63 U/L 32-92 [facility] Serum or plasma aspartate am inotransferase measurement (enzymatic activity/volume)on 07-05-2020 AST [Catalytic activity/Vol] 27 U/L 10-42 [facility] Serum or plasma calcium yvonne urement (mass/volume)on 07-05-2020 Calcium [Mass/Vol] 9.4 mg/dL 8.2-10.2 [facility] Serum or plasma chloride elpidio surement (moles/volume)on 07-05-2020 Chloride [Moles/Vol] 96 mmol/L 95-114 [facility] Serum or plasma creatinine m easurement with calculation of estimated glomerular filtron 07-05-2020 Creatinine [Mass/Vol] 0.64 mg/dL 0.44-1.03 [facility] Serum or plasma glucose yvonne urement (mass/volume)on 07-05-2020 Glucose [Mass/Vol] 114 mg/dL 70-100 [facility] Comment on above: ADA recommended refe rence rangeRandom Glucose Reference Range is dependent on time and content of last meal. Glucose of more than 200 mg/dL in a nonstressed, ambulatory subject supports the diagnosis of Diabetes Mellitus. Serum or plasma high density lipoprotein (HDL) cholesterol measurementon 07-05-2020 Cholesterol in HDL [Mass/Vol] 63 mg/dL 35-85 [facility] Comment on above: HDL CHOL ATP-III CLA SSIFICATION Cardiovascular RiskHDL > or equal to 60 mg/dL LOWHDL < 40 mg/dL HIGH Serum or plasma potassium me asurement (moles/volume)on 07-05-2020 Potassium [Moles/Vol] 3.9 mmol/L 3.5-5.1 [facility] Serum or plasma sodium measu rement (moles/volume)on 07-05-2020 Sodium [Moles/Vol] 131 mmol/L 136-146 [facility] Serum or plasma total biliru bin measurement (mass/volume)on 07-05-2020 Bilirubin [Mass/Vol] 0.6 mg/dL 0.3-1.2 [facility] Serum or plasma total carbon dioxide measurement (moles/volume)on 07-05-2020 CO2 [Moles/Vol] 24.3 mmol/L 22.0-30.0 [facility] Serum or plasma total choles terol/high density lipoprotein (HDL) cholesterol mass ashok 07-05-2020 Cholesterol.total/Joselyn sterol in HDL [Mass ratio] 2.7 {ratio} [facility] Serum or plasma urea nitroge n measurement (mass/volume)on 07-05-2020 Urea nitrogen [Mass/Vol] 15 mg/dL 9-23 [facility] Triglyceride [Mass/volume] i n Serum or Plasmaon 07-05-2020 Triglyceride [Mass/Vol] 86 mg/dL 35-149 [facility] Comment on above: TRIG ATP III CLASSIF ICATIONTRIG less than 150 mg/dL NormalTRIG 150-199 mg/dL Borderline highTRIG 200-500 mg/dL High TRIG greater than 500 mg/dL Very highStandard traceable to the Center for Disease Conrtrol and Prevention (CDC) test method. Coding Summary.on 06-19-2018 Coding Summary. CODING DATE: 06/19/2018 FINAL [facility] DSC STATUS: Home (Routine DC) PAYOR: Medicare [...] Revised Date Saved: 06/19/2018 01:41 pm Normal [facility] Main OR Intraoperative Recor don 06-18-2018 Main OR Intraoperative Record IntraOp Document Type FTURO Summary Primary Physician: Kel Lehman MD, Khadar Mcmillan Finalized Date/Time: 06/18/18 14:22:44 Pt. Name: SARI ABBASI/Sex: 1950 Female Med Rec #: [id number] Physician: Khadar Begum Jr., MD Financial #: [id number] Pt. Type: O Room/Bed: / Admit/Disch: 06/18/18 13:04:11 - Institution: Case Times FTURO Entry 1 Patient Times In Room 06/18/18 14:16:00 Out Room 06/18/18 14:22:00 Procedure Times Start 06/18/18 14:18:00 Stop 06/18/18 14:20:00 Anesthesia Times Last Modified By: Barrera SIMON, RN, Heather 06/18/18 14:20:03 Case Attendance FTURO Entry 1 Entry 2 Entry 3 Case Attendee Khadar Begum Jr., MD, RN, [facility], Latasha Romero Role Performed Surgeon - Primary Radio Assembler - Primary Scrub - Primary Time In [...] 14:22 Barrera SIMON RN, Kelly 06/18/18 14:22 [facility] Main OR Preoperative Recordo n 06-18-2018 Main OR Preoperative Record Holding Area Document Type FTURO Summary Primary Physician: Khadar Begum Jr., MD Finalized Date/Time: 06/18/18 13:22:18 Pt. Name: SARI ABBASI/Sex: 1950 Female Med Rec #: [id number] Physician: Khadar Begum Jr., MD Financial #: [id number] Pt. Type: O Room/Bed: / Admit/Disch: 06/18/18 [...] Pain: No Comment: pr Skin Integrity Intact, Coldiron, Warm, & Dry Vitals - EU Blood Pressure 155/79 Pulse 78 bpm Respirations 18 br/min SPO2 Last Modified By: Marayn Cortes LPN 06/18/18 13:22:13 Finalized By: Maryan Cortes LPN Document Signatures Signed By: Maryan Cortes LPN 06/18/18 13:22 [facility] Operative Reporton 8 Operative Report [...] urine. The Urethra was dilated to: 26 [place] w/ sounds. Devices Implanted: None. Removal: Cystoscope is removed, The patient tolerated it well. Postoperative Information Discharge: Patient is discharged home with antibiotic coverage, Follow up arranged. [facility] Comment on above: Result Comment: Elec tronically Signed By: Kel Lehman MD, Khadar Mcmillan\.br\Date and Time Signed: 06/18/18 14:22 EST Vital Signs Date Time Vital Sign Value Performing Clinician Facility 02-08-2025 17:02-0400 Body height 173.99 cm PHYSICIAN NO [facility] 02-08-2025 17:02-0400 Body mass index (BMI) [Ratio] 26.4 kg/m2 PHYSICIAN NO [facility] 02-08-2025 17:02-0400 Body weight 79.83 kg PHYSICIAN NO [facility] 02-08-2025 17:02-0400 Diastolic blood pressure 69 mm[Hg] PHYSICIAN NO [facility] 02-08-2025 17:02-0400 Heart rate 74 /min PHYSICIAN NO [facility] 02-08-2025 17:02-0400 Respiratory rate 16 /min PHYSICIAN NO [facility] 02-08-2025 17:02-0400 SaO2% (BldA) [Mass fraction] 95 % PHYSICIAN NO [facility] 02-08-2025 17:02-0400 Systolic blood pressure 141 mm[Hg] PHYSICIAN NO [facility] 01-10-2025 12:46-0400 Body height 173.99 cm Hudson Castañeda MD Work Phone: [facility] 01-10-2025 12:46-0400 Body mass index (BMI) [Ratio] 26.4 kg/m2 Hudson Castañeda MD Work Phone: [facility] 01-10-2025 12:46-0400 Body weight 79.83 kg Hudson Castañeda MD Work Phone: [facility] 01-10-2025 12:46-0400 Diastolic blood pressure 65 mm[Hg] Hudson Castañeda MD Work Phone: [facility] 01-10-2025 12:46-0400 Heart rate 75 /min Hudson Castañeda MD Work Phone: [facility] 01-10-2025 12:46-0400 Systolic blood pressure 124 mm[Hg] Hudson Castañeda MD Work Phone: [facility] 01-05-2025 09:41-0400 Body height 175.3 cm Hudson Castañeda MD Work Phone: [facility] 01-05-2025 09:41-0400 Body mass index (BMI) [Ratio] 25.84 kg/m2 Hudson Castañeda MD Work Phone: [facility] 01-05-2025 09:41-0400 Body weight 79.38 kg Hudson Castañeda MD Work Phone: [facility] 11-25-2024 11:30-0400 Body height 175.26 cm PHYSICIAN NO [facility] 11-25-2024 11:30-0400 Body mass index (BMI) [Ratio] 25.8 kg/m2 PHYSICIAN NO [facility] 11-25-2024 11:30-0400 Body temperature 97.3 [degF] PHYSICIAN NO [facility] 11-25-2024 11:30-0400 Body weight 79.43 kg PHYSICIAN NO [facility] 11-25-2024 11:30-0400 Diastolic blood pressure 70 mm[Hg] PHYSICIAN NO [facility] 11-25-2024 11:30-0400 Heart rate 74 /min PHYSICIAN [facility] 11-25-2024 11:30-0400 Respiratory rate 16 /min PHYSICIAN NO [facility] 11-25-2024 11:30-0400 SaO2% (BldA) [Mass fraction] 99 % PHYSICIAN NO [facility] 11-25-2024 11:30-0400 Systolic blood pressure 134 mm[Hg] PHYSICIAN NO [facility] 11-07-2024 12:03-0400 Body height 175.26 cm [facility] 11-07-2024 12:03-0400 Body mass index (BMI) [Ratio] 25.1 kg/m2 [facility] 11-07-2024 12:03-0400 Body temperature 99.1 [degF] [facility] 11-07-2024 12:03-0400 Body weight 77.11 kg [facility] 11-07-2024 12:03-0400 Diastolic blood pressure 76 mm[Hg] [facility] 11-07-2024 12:03-0400 Heart rate 90 /min [facility] 11-07-2024 12:03-0400 Respiratory rate 16 /min [facility] 11-07-2024 12:03-0400 SaO2% (BldA) [Mass fraction] 96 % [facility] 11-07-2024 12:03-0400 Systolic blood pressure 144 mm[Hg] [facility] 10-25-2024 09:14-0400 Body height 175.3 cm Hudson Castañeda MD Work Phone: [facility] 10-25-2024 09:14-0400 Body mass index (BMI) [Ratio] 25.84 kg/m2 Hudson Castañeda MD Work Phone: [facility] 10-25-2024 09:14-0400 Body weight 79.38 kg Hudson Castañeda MD Work Phone: [facility] 10-21-2024 13:36-0400 Body height 175.3 cm Maribeth Gillmor SCOURING TRAIN OPERATOR CHIEF Work Phone: [facility] 10-21-2024 13:36-0400 Body mass index (BMI) [Ratio] 25.84 kg/m2 Maribeth Gunjanmor SCOURING TRAIN OPERATOR CHIEF Work Phone: [facility] 10-21-2024 13:36-0400 Body weight 79.38 kg Maribeth Gunjanmor SCOURING TRAIN OPERATOR CHIEF Work Phone: [facility] 10-21-2024 13:36-0400 Diastolic blood pressure 66 mm[Hg] Maribeth Gunjanmor SCOURING TRAIN OPERATOR CHIEF Work Phone: [facility] 10-21-2024 13:36-0400 Heart rate 69 /min Maribeth Gunjanmor SCOURING TRAIN OPERATOR CHIEF Work Phone: [facility] 10-21-2024 13:36-0400 Systolic blood pressure 126 mm[Hg] Maribeth Gunjanmor SCOURING TRAIN OPERATOR CHIEF Work Phone: [facility] 08-11-2024 13:16-0500 Diastolic blood pressure 82 mm[Hg] Olive Beltran DO Work Phone: [facility] 08-11-2024 13:16-0500 Systolic blood pressure 136 mm[Hg] Olive Beltran DO Work Phone: [facility] 06-16-2024 11:24-0500 Body mass index (BMI) [Ratio] 25.4 kg/m2 José Luis Flores MD Work Phone: [facility] 06-16-2024 11:24-0500 Body weight 78.02 kg José Luis Flores MD Work Phone: [facility] 06-16-2024 11:24-0500 Diastolic blood pressure 62 mm[Hg] José Luis Flores MD Work Phone: [facility] 06-16-2024 11:24-0500 Systolic blood pressure 112 mm[Hg] José Luis Flores MD Work Phone: [facility] 05-24-2024 13:35-0500 Body height 175.3 cm Maribeth Gunjanmor SCOURING TRAIN OPERATOR CHIEF Work Phone: [facility] 05-24-2024 13:35-0500 Body mass index (BMI) [Ratio] 25.75 kg/m2 Maribeth Beachr SCOURING TRAIN OPERATOR CHIEF Work Phone: [facility] 05-24-2024 13:35-0500 Body weight 79.1 kg Maribeth Beachr SCOURING TRAIN OPERATOR CHIEF Work Phone: [facility] 05-24-2024 13:35-0500 Diastolic blood pressure 68 mm[Hg] Maribeth Beachr SCOURING TRAIN OPERATOR CHIEF Work Phone: [facility] 05-24-2024 13:35-0500 Heart rate 64 /min Maribeth Beachr SCOURING TRAIN OPERATOR CHIEF Work Phone: [facility] 05-24-2024 13:35-0500 SaO2% (BldA) [Mass fraction] 98 % Maribeth Beachr SCOURING TRAIN OPERATOR CHIEF Work Phone: [facility] 05-24-2024 13:35-0500 Systolic blood pressure 132 mm[Hg] Maribeth Beachr SCOURING TRAIN OPERATOR CHIEF Work Phone: [facility] 05-20-2024 10:37-0500 Body height 175.3 cm Hudson Castañeda MD Work Phone: [facility] 05-20-2024 10:37-0500 Body mass index (BMI) [Ratio] 25.7 kg/m2 Hudson Castañeda MD Work Phone: [facility] 05-20-2024 10:37-0500 Body temperature 98.01 [degF] Hudson Castañeda MD Work Phone: [facility] 05-20-2024 10:37-0500 Body weight 78.93 kg Hudson Castañeda MD Work Phone: [facility] 05-20-2024 10:37-0500 Heart rate 68 /min Hudson Castañeda MD Work Phone: [facility] 05-20-2024 10:37-0500 SaO2% (BldA) [Mass fraction] 98 % Hudson Castañeda MD Work Phone: [facility] 03-29-2024 11:05-0400 Body height 175.3 cm Hudson Castañeda MD Work Phone: [facility] 03-29-2024 11:05-0400 Body mass index (BMI) [Ratio] 25.7 kg/m2 Hudson Castañeda MD Work Phone: [facility] 03-29-2024 11:05-0400 Body weight 78.93 kg Hudson Castañeda MD Work Phone: [facility] 03-29-2024 11:05-0400 Diastolic blood pressure 78 mm[Hg] Hudson Castañeda MD Work Phone: [facility] 03-29-2024 11:05-0400 Heart rate 70 /min Hudson Castañeda MD Work Phone: [facility] 03-29-2024 11:05-0400 SaO2% (BldA) [Mass fraction] 99 % Hudson Castañeda MD Work Phone: [facility] 03-29-2024 11:05-0400 Systolic blood pressure 128 mm[Hg] Hudson Castañeda MD Work Phone: [facility] 03-02-2024 11:50-0400 Diastolic blood pressure 74 mm[Hg] Olive Beltran DO Work Phone: [facility] 03-02-2024 11:50-0400 Heart rate 60 /min Olive Beltran DO Work Phone: [facility] 03-02-2024 11:50-0400 SaO2% (BldA) [Mass fraction] 99 % Olive Beltran DO Work Phone: [facility] 03-02-2024 11:50-0400 Systolic blood pressure 126 mm[Hg] Olive Beltran DO Work Phone: [facility] 12-08-2023 16:56-0400 Body mass index (BMI) [Ratio] 24.96 kg/m2 Deb López MD Work Phone: [facility] 12-08-2023 16:56-0400 Body weight 76.66 kg Deb López MD Work Phone: [facility] 12-08-2023 16:56-0400 Diastolic blood pressure 68 mm[Hg] Deb López MD Work Phone: [facility] 12-08-2023 16:56-0400 Systolic blood pressure 147 mm[Hg] Deb López MD Work Phone: [facility] 11-28-2023 13:44-0400 Body height 175.26 cm MD Hudson Castañeda Work Phone: [facility] 11-28-2023 13:44-0400 Body mass index (BMI) [Ratio] 25.5 kg/m2 MD Hudson Castañeda Work Phone: [facility] 11-28-2023 13:44-0400 Body temperature 98.1 [degF] MD Hudson Castañeda Work Phone: [facility] 11-28-2023 13:44-0400 Body weight 78.52 kg MD Hudson Castañeda Work Phone: [facility] 11-28-2023 13:44-0400 Diastolic blood pressure 71 mm[Hg] MD Hudson Castañeda Work Phone: [facility] 11-28-2023 13:44-0400 Heart rate 69 /min MD Hudson Castañeda Work Phone: [facility] 11-28-2023 13:44-0400 Respiratory rate 18 /min MD Hudson Castañeda Work Phone: [facility] 11-28-2023 13:44-0400 SaO2% (BldA) [Mass fraction] 95 % MD Hudson Castañeda Work Phone: [facility] 11-28-2023 13:44-0400 Systolic blood pressure 128 mm[Hg] MD Hudson Castañeda Work Phone: [facility] 11-13-2023 11:00-0400 Body height 175.26 cm MD Hudson Castañeda Work Phone: [facility] 11-13-2023 11:00-0400 Body mass index (BMI) [Ratio] 25.5 kg/m2 MD Hudson Castañeda Work Phone: [facility] 11-13-2023 11:00-0400 Body temperature 96.5 [degF] MD Hudson Castañeda Work Phone: [facility] 11-13-2023 11:00-0400 Body weight 78.58 kg MD Hudson Castañeda Work Phone: [facility] 11-13-2023 11:00-0400 Diastolic blood pressure 70 mm[Hg] MD Hudson Castañeda Work Phone: [facility] 11-13-2023 11:00-0400 Heart rate 72 /min MD Hudson Castañeda Work Phone: [facility] 11-13-2023 11:00-0400 Respiratory rate 16 /min MD Hudson Castañeda Work Phone: [facility] 11-13-2023 11:00-0400 SaO2% (BldA) [Mass fraction] 98 % MD Hudson Castañeda Work Phone: [facility] 11-13-2023 11:00-0400 Systolic blood pressure 130 mm[Hg] MD Hudson Castañeda Work Phone: [facility] 11-03-2023 13:09-0400 Body height 175.3 cm Pricilla Lobato [employer]AT HYDRAUL[employer]ER-[employer]RICULUM AND INSTRUCTION SPECIALIST Work Phone: [facility] 11-03-2023 13:09-0400 Body mass index (BMI) [Ratio] 25.49 kg/m2 Pricilla Lobato [employer] HYDRAULICKER-[employer]RICULUM AND INSTRUCTION SPECIALIST Work Phone: [facility] 11-03-2023 13:09-0400 Body weight 78.29 kg Pricilla Lobato [employer]AT HYDRAULICKER-CURRICULUM AND INSTRUCTION SPECIALIST Work Phone: [facility] 11-03-2023 13:09-0400 Diastolic blood pressure 80 mm[Hg] Pricilla Lobato [employer] HYDRA[employer]ICKER-CURRICULUM AND INSTRUCTION SPECIALIST [facility] 11-03-2023 13:09-0400 Heart rate 68 /min Pricilla Lobato [employer] HYDRAULICKER-CURRICULUM AND INSTRUCTION SPECIALIST [facility] 11-03-2023 13:09-0400 Respiratory rate 18 /min Pricilla Lobato WO[employer] HYDRAULICKER-CURRICULUM AND INSTRUCTION SPECIALIST [facility] 11-03-2023 13:09-0400 Systolic blood pressure 140 mm[Hg] Pricilla Lobato [employer] HYDRAULICKER-CURRICULUM AND INSTRUCTION SPECIALIST [facility] 12-05-2022 11:00-0400 Body height 175.26 cm Gonsalo You Other [employer] Other 12-05-2022 11:00-0400 Body mass index (BMI) [Ratio] 25.75 kg/m2 Gonsalo You Other [employer] Other 12-05-2022 11:00-0400 Body temperature 96.6 [degF] Gonsalo You Other [employer] Other 12-05-2022 11:00-0400 Body weight 79.11 kg Gonsalo You Other [employer] Other 12-05-2022 11:00-0400 Diastolic blood pressure 72 mm[Hg] Gonsalo You Other [employer] Other 12-05-2022 11:00-0400 Respiratory rate 18 /min Gonsalo You Other [employer] Other 12-05-2022 11:00-0400 SaO2% (BldA) [Mass fraction] 98 % Gonsalo You Other [employer] Other 12-05-2022 11:00-0400 Systolic blood pressure 139 mm[Hg] Gonsalo You Other [employer] Other 01-31-2022 09:30-0400 Diastolic blood pressure 78 mm[Hg] MD Hudson Castañeda Work Phone: [facility] 01-31-2022 09:30-0400 Heart rate 69 /min MD Hudson Castañeda Work Phone: [facility] 01-31-2022 09:30-0400 Respiratory rate 16 /min MD Hudson Castañeda Work Phone: [facility] 01-31-2022 09:30-0400 SaO2% (BldA) [Mass fraction] 99 % MD Hudson Castañeda Work Phone: [facility] 01-31-2022 09:30-0400 Systolic blood pressure 124 mm[Hg] MD Hudson Castañeda Work Phone: [facility] 01-31-2022 08:00-0400 Body height 175.26 cm MD Hudson Castañeda Work Phone: [facility] 01-31-2022 08:00-0400 Body temperature 98.5 [degF] MD Hudson Castañeda Work Phone: [facility] 01-31-2022 08:00-0400 Body weight 74.84 kg MD Hudson Castañeda Work Phone: [facility] 11-29-2021 11:20-0400 Body height 175.26 cm Gonsalo You Other [employer] Other 11-29-2021 11:20-0400 Body mass index (BMI) [Ratio] 26.25 kg/m2 Gonsalo You Other [employer] Other 11-29-2021 11:20-0400 Body temperature 96.5 [degF] Gonsalo You Other [employer] Other 11-29-2021 11:20-0400 Body weight 80.65 kg Gonsalo You Other [employer] Other 11-29-2021 11:20-0400 Diastolic blood pressure 90 mm[Hg] Gonsalo You Other [employer] Other 11-29-2021 11:20-0400 Respiratory rate 18 /min Gonsalo You Other [employer] Other 11-29-2021 11:20-0400 SaO2% (BldA) [Mass fraction] 95 % Gonsalo You Other [employer] Other 11-29-2021 11:20-0400 Systolic blood pressure 160 mm[Hg] Gonsalo You Other [employer] Other Encounters Encounter Date Encounter Type Care Provider Facility Start: 02-08-2025 End: 02-08-2025 ambulatory PHYSICIAN [facility] Work Phone: Start: 02-08-2025 End: 02-08-2025 Patient encounter procedure Olive Gong DO -[facility] [place] Work Phone: Start: 02-07-2025 End: 02-07-2025 Patient encounter procedure [facility] Work Phone: Start: 02-07-2025 End: 02-07-2025 ambulatory PHYSICIAN NO [facility] Work Phone: Start: 01-18-2025 End: [...] 01-10-2025 ambulatory Hudson Castañeda MD Work Phone: [facility] Work Phone: Start: 01-10-2025 End: 01-10-2025 Patient encounter procedure Maribeth Pompa WOOL HAT HYDRAULICKER -[facility] [place] Work Phone: Start: 01-08-2025 End: 01-08-2025 ambulatory Hudson Castañeda MD Work Phone: [facility] Work Phone: Start: 01-08-2025 End: 01-08-2025 Departed Referred Gene Lyn MD -[facility] [place] [facility] Start: 01-08-2025 End: 01-10-2025 Clinisync Result [...] 01-03-2025 ambulatory Hudson Castañeda MD Work Phone: [facility] Work Phone: Start: 11-25-2024 End: 11-25-2024 ambulatory PHYSICIAN NO [facility] Work Phone: Start: 11-25-2024 End: 11-25-2024 Patient encounter procedure PHYSICIAN NO [facility] Jose Luis Work Phone: Start: 11-15-2024 End: 11-15-2024 Clinisync Result Encounter Generic External Data Provider [facility] External Department Unsolicited Start: 11-15-2024 End: 11-15-2024 Clinisync Result Encounter Generic External Data Provider [facility] External Department Unsolicited Start: 11-15-2024 Non-patient / Non-visit PHYSICIAN NO [facility] Work Phone: Start: 11-07-2024 End: 11-07-2024 Departed Referred Kyra Gomes APRN Work Phone: [facility] [place] Work Phone: Start: 11-07-2024 End: 11-07-2024 ambulatory Kyra Gomes [facility] Work Phone: Start: 11-07-2024 End: 11-07-2024 Patient encounter procedure [facility] Jose Luis Work Phone: Start: [...] 10-21-2024 End: 10-21-2024 Bamboo flowsheet Maribeth Gillmor SCOURING TRAIN OPERATOR CHIEF Work Phone: [facility] Start: 10-21-2024 End: 10-21-2024 Bamboo flowsheet Maribeth Gunjanmor SCOURING TRAIN OPERATOR CHIEF Work Phone: [facility] Start: 10-21-2024 End: 10-21-2024 Office outpatient visit 25 minutes Maribeth Powers SCOURING TRAIN OPERATOR CHIEF Work Phone: [facility] Comment on above: [...] screening Start: 06-16-2024 End: 06-16-2024 ambulatory JOSÉ LIUS FLORES Not Available Start: 06-14-2024 End: 06-14-2024 ambulatory [facility] Start: 05-24-2024 End: 05-24-2024 Bamboo flowsheet Maribeth Bayleer SCOURING TRAIN OPERATOR CHIEF Work Phone: [facility] [address] Start: 05-24-2024 End: 05-24-2024 Bamboo flowsheet Maribeth Gillmor SCOURING TRAIN OPERATOR CHIEF Work Phone: [facility] [place] [address] Start: 05-24-2024 End: 05-24-2024 Office outpatient visit 25 minutes Maribeth Powers SCOURING TRAIN OPERATOR CHIEF Work Phone: [facility] Comment on above: KENNEDY (obstructive sle [...] encounter procedure MD Hudson Castañeda Work Phone: [facility] Start: 04-23-2024 End: 04-23-2024 ambulatory MD Hudson Castañeda Work Phone: [facility] Work Phone: Start: 04-10-2024 End: 04-12-2024 Refill Olive Gong DO Work Phone: [facility] [address] Comment on above: Primary insomnia [...] 25 minutes Olive Gong DO Work Phone: [facility] Comment on above: Neck pain (Primary D x); Chronic low back pain with bilateral sciatica, unspecified back pain laterality; Myalgia; Primary insomnia; KENNEDY (obstructive sleep apnea); Sciatica, unspecified laterality Start: 03-02-2024 End: 03-02-2024 ambulatory OLIVE GONG Not Available Start: 02-05-2024 End: 02-05-2024 ambulatory MD Hudson Castañeda Work Phone: [facility] Work Phone: Start: 02-05-2024 End: 02-05-2024 Patient encounter procedure MD Hudson Castañeda Work Phone: [facility] Work Phone: Start: 12-08-2023 End: 12-08-2023 Office outpatient visit 25 minutes Deb López MD Work Phone: [facility] Comment on above: Renal artery stenosi s (CMS-HCC) (Primary Dx) Start: 12-08-2023 ambulatory DEB LÓPEZ [facility] Start: 11-28-2023 End: 11-28-2023 ambulatory MD Hudson Castañeda Work Phone: [facility] Work Phone: Start: 11-28-2023 End: 11-28-2023 Patient encounter procedure MD Hudson Castañeda Work Phone: [facility] Jose Luis Work Phone: Start: 11-25-2023 End: 11-25-2023 ambulatory PRICILLAYESICA LOBATO [facility] Start: 11-13-2023 End: 11-13-2023 ambulatory MD Hudson Castañeda Work Phone: [facility] Work Phone: Start: 11-13-2023 End: 11-13-2023 Patient encounter procedure MD Hudson Castañeda Work Phone: [facility] Jose Luis Work Phone: Start: 11-03-2023 End: 11-03-2023 Office outpatient visit 25 minutes [facility] WOOL HAT HYDRAULICKER-CURRICULUM AND INSTRUCTION SPECIALIST Work Phone: [facility] Comment on above: 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 Start: 10-27-2023 End: 10-27-2023 ambulatory MD Hudson Castañeda Work Phone: [facility] Work Phone: Start: 10-27-2023 End: 10-27-2023 Patient encounter procedure MD Husdon Castañeda Work Phone: [facility] [address] Work Phone: Start: 10-17-2023 End: 10-17-2023 ambulatory [facility] Start: 05-08-2023 End: 05-08-2023 ambulatory Gonsalo You Other [employer] Other Start: 05-08-2023 Telephone encounter Gonsalo You [facility] Start: 04-29-2023 End: 04-29-2023 ambulatory MD Hudson Castañeda Work Phone: [facility] Work Phone: Start: 04-29-2023 End: 04-29-2023 Patient encounter procedure MD Hudson Castañeda Work Phone: [facility] [address] Work Phone: Start: 01-08-2023 End: 01-08-2023 ambulatory MD Hudson Castañeda Work Phone: [facility] Work Phone: Start: 01-08-2023 End: 01-08-2023 Patient encounter procedure MD Hudson Castañeda Work Phone: [facility] Work Phone: Start: 12-05-2022 End: 12-05-2022 ambulatory Gonsalo You Other [employer] Other Start: 12-05-2022 Office outpatient vi sit 25 minutes Gonsalo You [facility] [place] Start: 10-29-2022 End: 10-29-2022 ambulatory MD Hudson Castañeda Work Phone: [facility] Work Phone: Start: 10-29-2022 End: 10-29-2022 Patient encounter procedure MD Hudson Castañeda Work Phone: [facility] [address] Work Phone: Start: 10-25-2022 End: 10-25-2022 Patient encounter procedure MD Hudson Castañeda Work Phone: [facility] Start: 07-15-2022 End: 07-16-[address] TAMERA RANDALL Facility: Start: 05-20-2022 End: 05-20-2022 ambulatory Gonsalo You Other [facility] [employer] Other Start: 05-20-2022 Telephone encounter Gonsalo You [facility] Start: 04-25-2022 End: 04-25-2022 ambulatory MD Hudson Castañeda Work Phone: [facility] Work Phone: Start: 04-25-2022 End: 04-25-2022 Patient encounter procedure MD Hudson Castañeda Work Phone: [facility] [address] Start: 02-26-2022 End: 02-26-[address] HUDSON CASTAÑEDA Facility:[facility] Start: 02-11-2022 End: 02-12-[address] HUDSON CASTAÑEDA Facility:[facility] Start: 01-31-2022 End: 01-31-2022 Admission to same day surgery center MD Hudson Castañeda Work Phone: [facility] Start: 01-29-2022 End: 01-29-2022 Patient encounter procedure MD Hudson Castañeda Work Phone: [facility]-Pre-Surgical Testing Start: 01-08-2022 End: 01-08-2022 ambulatory Jordan Gutierrez Other [employer] Other Start: 01-08-2022 Telephone encounter Jordan CHAMORRO G Business Analyst Start: 12-10-2021 End: 12-10-2021 Patient encounter procedure MD Hudson [facility] Start: 11-29-2021 End: 11-29-2021 ambulatory Gonsalo You Other [employer] Other Start: 11-29-2021 Office outpatient vi sit 15 minutes Gonsalo You [facility] Jose Luis Start: 11-21-2021 End: 11-22-2021 ambulatory GONSALO YOU Facility:[facility] Start: 07-28-2020 End: 07-28-2020 Patient encounter procedure Hudson Castañeda [facility] Start: 07-05-2020 End: 07-05-2020 [...] Castañeda MD Work Phone: Start: 08-11-2024 Injection single/cnc mechanic trigger point 3/> muscles Olive Gong DO Work Phone: Start: 02-05-2024 Screening mammograph y of bilateral breasts MD Hudson Castañeda Work Phone: Start: 11-03-2023 Follow-up visit Follow-up PRICILLA LOBATO Start: 01-08-2023 End: 01-08-2023 Screening mammography of bilateral breasts MD Hudson Castañeda Work Phone: Start: 10-29-2022 X-ray of left knee MD Cahrity Castañeda Work Phone: Start: 01-31-2022 Screening colonoscopy [...] [facility] Start: 07-10-2026 End: 07-10-2026 Patient encounter procedure 07/10/2026 11:30 AM EST Office Visit [facility] [address] [place] [address] José Luis Flores MD [address] [place] [address] [facility] Start: 03-29-2025 Medicare Annual Well ness (AWV) Medicare Annual Wellness (AWV) [facility] Start: 03-07-2025 Influenza vaccination Influenza Vacc ine (#1) [facility] Start: 01-18-2025 End: 01-18-2025 Patient encounter procedure 01/18/2025 3:00 PM EDT Office Visit [facility] [address] [place] [address] Hudson Castañeda MD [address] [facility] [address] [place] [address] (Fax) Encounter for examination following treatment at hospital; COVID-19; Acute UTI (urinary tract infection); Polypharmacy; Overweight (BMI 25.0-29.9) [facility] 100 Comment on above: Encounter for examin ation following treatment at hospital; COVID-19; Acute UTI (urinary tract infection); Polypharmacy; Overweight (BMI 25.0-29.9) Start: 01-10-2025 End: 01-10-2025 Patient encounter procedure 01/10/2025 12:40 PM EDT Office Visit [facility] [address] [place] [address] Maribeth Powers NP [address] [place] [address] [facility] Start: 01-08-2025 End: 01-08-2025 Urine culture [facility] Start: 01-08-2025 Bacteria identified in Urine by Culture Urine Culture [facility] Start: 12-07-2024 Adult BMI Screening Adult BMI Screen ing [facility] Start: 12-07-2024 Tobacco Screening Tobacco Screening [facility] Start: 11-08-2024 Urine culture [facility] Start: 11-07-2024 Bacteria identified in Urine by Culture Urine Culture [facility] Start: 11-02-2024 Adult BMI Screening Adult BMI Screen ing [facility] Start: 11-02-2024 Tobacco Screening Tobacco Screening [facility] Start: 10-25-2024 End: 10-25-2024 Patient encounter procedure 10/25/2024 9:15 AM EDT Office Visit [facility] [address] [place] [address] Hudson Castañeda MD [address] [place] [address] Arrived [facility] Comment on above: Arrived Start: 10-21-2024 End: 10-21-2024 Patient encounter procedure [facility] Comment on above: Arrived Start: 10-14-2024 End: 10-14-2024 Patient encounter procedure 10/14/2024 12:40 PM EDT Office Visit [facility] [address] [place] [address] Maribeth Powers NP [address] [place], [place] [facility] Start: 08-19-2024 End: 08-19-2024 Patient encounter procedure 08/19/2024 12:40 PM EST Office Visit [facility] [place] [address] [place] [address] Maribeth Powers NP [address] [place], [place] [facility] [place] [address] Start: 08-11-2024 End: 08-11-2024 Patient encounter procedure 08/11/2024 1:15 PM EST Office Visit [facility] [place] [address] [address] Olive Gong DO [address] [place] [address] Arrived [facility] Comment on above: Arrived Start: 06-23-2024 End: 06-23-2024 Patient encounter procedure 06/23/2024 3:45 PM EST Office Visit [facility] [place] [address] [place] [address] Olive Gong DO [address] [place] [address] [facility] [place] [facility] Start: 06-16-2024 End: 06-16-2024 Patient encounter procedure [facility] Comment on above: Cervical cancer scre ening Start: 06-08-2024 End: 12-07-2024 US.doppler Renal vessels - bilateral Vas renal artery duplex complete Vascular Ultrasound Routine Renal artery stenosis ([facility]-HCC) Expected: 06/08/2024 (Approximate), Expires: 12/07/2024 [facility] Work Phone: Comment on above: Expected: 06/08/2024 (Approximate), Expires: 12/07/2024 Start: 05-25-2024 End: 05-25-2024 Patient encounter procedure 05/25/2024 1:20 PM EST Office Visit [facility] [place] [facility] [address] [address] Maribeth Powers, YOEL [address] [facility] Start: 05-24-2024 Influenza vaccination Influenza Vacc ine (#1) [facility] Comment on above: Postponed from 03/07 (Patient Refused) Start: 03-29-2024 End: 03-29-2024 Patient encounter procedure 03/29/2024 11:30 AM EDT Office Visit [facility] [address] [address] [place] [address] Hudson Castañeda MD [address] [facility] [place] [address] (Fax) Encounter for Medicare annual wellness exam; [...] procedure 03/02/2024 11:45 AM EDT Office Visit [facility] [address] [address] [place] [address] BeltranOlive, [address] [place], [place] [id number] Arrived [facility] Comment on above: Arrived Start: 01-09-2024 Screening for malign ant neoplasm of breast Mammogram [facility] Start: 12-08-2023 End: 12-08-2023 Telemedicine consultation with patient 12/08/2023 4:05 PM EDT Telemedicine [facility] [address] [place] [address] [place] [address] Deb López MD [address] [facility] [address] [place] [address] [facility] Start: 12-03-2023 End: 11-02-2024 Vas mesenteric artery duplex complete Vas mesenteric artery duplex complete Vascular Ultrasound Routine Celiac artery stenosis ([facility]-HCC) Epigastric pain Expected: 12/03/2023 (Approximate), Expires: 11/02/2024 [facility] Work Phone: Comment on above: Expected: 12/03/2023 (Approximate), Expires: 11/02/2024 Start: 11-25-2023 End: 11-25-2023 Patient encounter procedure 11/25/2023 9:30 AM EDT Appointment [facility] - [facility] [address] [place] [id number] Pricilla Lobato, WOOL HAT HYDRAULICKER-CURRICULUM AND INSTRUCTION SPECIALIST [address], [address] [place] [address] [facility] Start: 09-04-2023 COVID-19 Vaccine ( season) COVID-19 Vaccine ( season) [facility] Start: 07-02-2023 Medicare Annual Well ness (AWV) Medicare Annual Wellness (AWV) [facility] Start: 01-31-2022 [facility] Start: 2015 Fall Risk Screening Fall Risk Screen ing [facility] Start: 2000 Administration of varicella zoster vaccine Zoster (Shingles) Vaccine (1 of 2) [facility] Start: 1969 DTaP,Tdap and Td Vaccines (1 - Tdap) DTaP,Tdap and Td Vaccines (1 - Tdap) [facility] Start: 1968 Adult BMI Follow Up Plan Adult BMI F ollow Up Plan [facility] Start: 1962 Depression Screening Depression Scre ening [facility] Start: 1950 Medicare Annual Well ness Visit Medicare Annual Wellness Visit [facility] Start: 1950 Screening for malign ant neoplasm of colon [facility] AEROBE ID + SUSCEPT [facility]care ANAEROBE IDENTIFICAT ION ONLY ANAEROBE IDENTIFICATION ONLY Lab Routine 01/08/2025 8:05 PM EDT [facility] IGP,rfx Aptima HPV a ll pth IGP,rfx Aptima HPV all pth Pathology and Cytology Routine Cervical cancer screening Ordered: 06/16/2024 [facility] Work Phone: Comment on above: Ordered: 06/16/2024 Renal function 1999 panel - Serum or Plasma [facility] Renal function 1999 panel - Serum or Plasma [facility] Urine culture [facility] Immunizations Immunization Date Immunization Notes Care Provider Fa cility 05-13-2024 Seasonal trivalent influenza vaccine, adjuvanted, preservative free Maribeth Powers NP Work Phone: [facility] 05-13-2024 influenza virus vacc ine, unspecified formulation Hudson Castañeda MD Work Phone: [facility] 04-21-2023 Influenza, Seasonal, Quadrivalent, Adjuvanted Olive Beltran DO Work Phone: [facility] 04-21-2023 influenza virus vacc ine, unspecified formulation Pricilla Lobato WOOL HAT HYDRAULICKER-CURRICULUM AND INSTRUCTION SPECIALIST Work Phone: [facility] 04-26-2022 Influenza, Seasonal, Quadrivalent, Adjuvanted Olive Beltran DO Work Phone: [facility] 04-21-2021 COVID-19 mRNA, Comir tera (Pfizer) MD Hudson Castañeda Work Phone: [facility] 04-21-2021 Influenza, High-dose Seasonal, Quadrivalent, Preservative Free Olive Beltran DO Work Phone: [facility] 08-26-2020 COVID-19 mRNA, Comir tera (Pfizer) MD Hudson Castañeda Work Phone: [facility] 08-05-2020 COVID-19 mRNA, Comir tera (Pfizer) MD Hudson Castañeda Work Phone: [facility] 07-07-2019 pneumococcal conjuga te vaccine, 13 valent Olive Beltran DO Work Phone: [facility] 05-10-2019 influenza, injectabl e, quadrivalent, preservative free Olive Beltran DO Work Phone: [facility] 07-09-2018 pneumococcal polysaccharide vaccine, 23 valent Olive Beltran DO Work Phone: [facility] 04-10-2018 influenza, high dose seasonal, preservative-free Olive Beltran DO Work Phone: [facility] 04-06-2018 pneumococcal conjuga te vaccine, 13 valent Olive Beltran DO Work Phone: [facility] 07-19-2017 pneumococcal conjuga te vaccine, 13 valent Olive Beltran DO Work Phone: [facility] 07-10-2017 pneumococcal conjuga te vaccine, 13 valent Olive Beltran DO Work Phone: [facility] 06-18-2017 pneumococcal conjuga te vaccine, 13 valent Olive Gong DO Work Phone: [facility] 04-17-2017 influenza, high dose seasonal, preservative-free Olive Gong DO Work Phone: [facility] 05-12-2015 influenza, injectabl e, quadrivalent, preservative free Olive Gong DO Work Phone: [facility] Payers Date Payer Category Payer Self-pay [id number] 2022 Unknown AARP AARP [id number] 2022-Present [address] [place] [address] [id number] 2015 Medicare [id number] 2015 Private Health Insurance [id number] 2015 Medicare [id number] 2013 Unknown [id number] 1959 Medicare [id number] 1959 Unknown [id number] 1950 Unknown [id number] 2.16.840.1.462606.3.579.2.7 27 1950 Unknown [id number] 2.16.840.1.336570.3.579.2.5 93 1950 Unknown [id number] 2.16.840.1.722488.3.579.2.5 93 1950 Unknown [id number] 2.16.840.1.483970.3.579.2.5 93 1950 Unknown [id number] 2.16.840.1.714273.3.579.2.5 93 1950 Unknown [id number] 2.16.840.1.655247.3.579.2.1 286 1950 Unknown [id number] 2.16.840.1.501669.3.579.2.1 286 1950 Unknown [id number] 2.16.840.1.717368.3.579.2.1 286 1950 Unknown [id number] 2.16.840.1.252134.3.579.2.1 286 1950 Unknown [id number] 2.16.840.1.027047.3.579.2.1 286 1950 Unknown [id number] 2.16.840.1.249426.3.579.2.1 259 1950 Unknown [id number] 2.16.840.1.930215.3.579.2.1 259 1950 Unknown [id number] 2.16.840.1.606029.3.579.2.1 259 1950 Unknown [id number] 2.16.840.1.416604.3.579.2.1 259 1950 Unknown [id number] 2.16.840.1.482796.3.579.2.1 259 1950 Unknown [id number] 2.16.840.1.298613.3.579.2.1 259 1950 Unknown [id number] 2.16.840.1.318108.3.579.2.1 259 1950 Unknown [id number] 2.16.840.1.964226.3.579.2.1 259 1950 Unknown [id number] 2.16.840.1.746873.3.579.2.1 259 1950 Unknown [id number] 2.16.840.1.125790.3.579.2.1 259 Unknown [id number] 2.16.840.1.360248.3.579.2.5 31 Unknown [id number] 2.16.840.1.210095.3.579.2.5 31 Unknown [id number] 2.16.840.1.940324.3.579.2.5 31 Unknown [id number] 2.16.840.1.137400.3.579.2.5 31 Unknown [id number] 2.16.840.1.970224.3.579.2.5 31 Social History Date Type Detail Facility Tobacco smoking stat us [facility] Unknown if ever smoked [facility] Start: 1950 Sex Assigned At Female [facility] Start: 12-30-2023 End: 01-17-2025 Sex Assigned At [facility] Start: 01-31-2022 End: 11-13-2023 Tobacco smoking status COIS Ex-smoker (finding) [facility] Start: 07-07-1974 End: 01-04-1997 History of tobacco use Current smoker [facility] Start: 07-07-1974 End: 01-04-1997 History of tobacco use Cigarette Smoker [facility] Start: 12-31-2023 End: 01-17-2025 Cigarettes smoked current (pack per day) - Reported 1.5 [facility] Start: 12-08-2023 End: 12-31-2023 Tobacco use and exposure Smokeless tobacco non-user [facility] Start: 03-29-2024 End: 01-05-2025 Alcoholic beverage intake Ex-drinker (finding) [facility] How often do you nee d to have someone help you when you read instructions, pamphlets, or other written material from your doctor or pharmacy [SILS] Never [facility] Within the last year , have you been afraid of your partner or ex-partner? No [facility] Do you belong to any clubs or organizations such as gnosticism groups, unions, fraternal or athletic groups, or school groups? Yes [facility] Are you now , , , , never or living with a partner? [facility] How often to you hav e [...] - these days [OSQ] Not at all [facility] (I/We) worried wheth er (my/our) food would run out before (I/we) got money to buy more. Never true [facility] Start: 12-09-2022 Education 13 [facility] Start: 12-09-2022 Alcohol Comment caffeine intake: 1-2 cups per day; coffee / 2-3 cups per day [facility] Start: 1950 Sex assigned at Not on file [facility] Start: 03-24-2021 Gender identity Identifies as female gender (finding) [facility] Start: 03-24-2021 Sexual orientation Heterosexual (finding) [facility] Start: 11-09-2024 End: 11-25-2024 Sex Female (finding) [facility] How often to you hav e a drink containing alcohol? Monthly or less [facility] Healthcare Goals Date Patient Goal Desired Activity /State Functional Status Date Assessment Result Facility 01-18-2025 Patient Health Quest ionnaire 2 item (PHQ-2) [Reported] [facility] 01-05-2025 Patient Health Quest ionnaire 2 item (PHQ-2) [Reported] [facility] 10-25-2024 Patient Health Quest ionnaire 2 item (PHQ-2) [Reported] [facility] Clinical Notes 05-03-2021 to 01-18-2025 Hudson Castañeda [...] Wright RN Hospital Information ED, Hospital or Fci Facility Discharge? ED Patient has been contacted within 2 days of being seen in the ED Yes Diagnosis Acute UTI, Covid 19 Discharge Date 01/08/25 Discharged To: Home Setting Discharge Hospital [facility] Engagement Call Start Time 920 Admission Date [...] transition of care note is reviewed. a xgdx-zt-adcm evaluation is done today. Medical decision making [...] g; Refill: 5 documented in this encounter [facility] 01-05-2025 History of Presen t illness Narrative [...] any further problems. documented in this encounter [facility] 11-25-2024 Evaluation note Diagnosis Onset Date Resolution [...] 2025 12:40pm Primary insomnia acute January 12:40pm [facility] Work Phone: 1(252) 363-937805-04-2025 Evaluation note* Diagnosis Onset Date Resolution Status Admit Date Acute UTI acute November 07, 2024 11:42am [facility] Work Phone: 1(668) 790-206305-04-2025 Evaluation note* Diagnosis Onset Date Resolution Status [...] D deficiency acute November 25, 2024 11:14am [facility] Work Phone: 1(988) 978-151605-04-2025 Evaluation note* Diagnosis Onset Date Resolution Status [...] 2024 11:14am Primary insomnia acute January 12:40pm [facility] Work Phone: 1(927) 957-329604-21-2025 History of Present illness Narrative* Hudson Castañeda [...] One tablet twice daily. documented in this encounterCooper County Memorial HospitalCycfjcitsc97-14-0618 History of Present illness Narrative* Maribeth Powers [...] CATARACT EXTRACTION COLONOSCOPY COLONOSCOPY 01/2022 Dr. Gutierrez [facility] DILATION AND CURETTAGE 1992;11/11/2017 EYE SURGERY 10/2016 [...] was counseled on the risks of stroke, DC, and sudden with KENNEDY, along with the [...] to clinic: 3 months documented in this [facility]04-01-2025 Telephone encounter Note* Telephone Encounter - Rony Bear MA - 10/05/2024 12:07 PM EDT Patient calls for refill of Ambien medication is pending. [facility] HospitalJxkcfatkur69-90-2348 Miscellaneous Notes* Telephone Encounter - Rony Bear MA - 10/05/2024 12:07 PM EDT Patient calls for refill of Ambien medication is pending. documented in this encounterCooper County Memorial HospitalTlpyrlaiqn84-97-3836 History of Present illness Narrative* Olive Gong [...] given by the patient. documented in this encounterCooper County Memorial HospitalGnaevxaelg10-22-9641 Telephone encounter Note* Telephone Encounter - Vera Llamas MA - 07/08/2024 11:11 AM EST Patient calls requesting [facility] [place] [facility] Esjjztybde66-25-1656 Miscellaneous Notes* Telephone Encounter - Vera Llamas MA - 07/08/2024 11:11 AM EST Patient calls requesting [facility] [place] documented in this encounterCooper County Memorial HospitalYoeihkjoik51-18-8280 History of Present illness Narrative* José Luis [...] Obstetric Comments Pap: 06/27-Neg CANDICE Mammo: 01/26-Neg ([facility]) DEXA: 07/27 Menopausal Medication and Allergies Medication Documentation Review Audit Reviewed by Antonia Escobar MA (Special Forces Specialist) on 06/16/24 at 1130 Medication Order Taking? Sig Documenting Provider Last Dose Status amLODIPine (Norvasc) 5 MG tablet [id number] No Take 10 mg by mouth Daily Historical Provider, Taking Active aspirin 81 MG EC tablet [id number] Take 81 mg by mouth every 7 (seven) days José Luis Flores MD Active azelastine (Astelin) 0.1 % nasal spray [id number] No Administer 1 spray into each nostril in the morning and 1 spray before bedtime. Use in each nostril as directed. Hudson Castañeda MD Taking Ljcvfet24/14/24 2271 Black Pepper-Turmeric (Turmeric Curcumin) 5-1000 MG capsule [id number] No José Luis Flores MD Taking Active Cetirizine HCl (ZYRTEC ALLERGY PO) [id number] No José Luis Flores MD Taking Active cholecalciferol (Vitamin D-3) 100 MCG (4000 UT) capsule [id number] No Take by mouth Daily José Luis Flores MD Taking Active colchicine 0.6 MG tablet [id number] No Take 0.6 mg by mouth in the morning. José Luis Flores MD TakingActive cyclobenzaprine (Flexeril) 10 MG tablet [id number] Take 0.5-1 tablets (5-10 mg) by mouth at bedtime Olive Gong DO Active desonide (DesOwen) 0.05 % cream [id number] No Apply topically 2 (two) times a day. Historical ProviderMD Taking Active esomeprazole (NexIUM) [address] capsule [id number] No Take 20 mg by mouth in the morning. Take before meals. Historical Provider, Taking Active fluticasone (Flonase) 50 MCG/ACT nasal spray [id number] No Administer 1 spray into each nostril Dailyas needed for rhinitis Hudson Castañeda MD Taking Active gabapentin (Neurontin) 100 MG capsule [id number] No 1 po daily -bid Olive Gong DO Taking Active L-lysine 1000 MG tablet [id number] No Take by mouth Daily José Luis Flores MD Taking Active lidocaine (Lidoderm) 5 % patch [id number] No Apply 1 patch topically if needed. Historical ProviderMD Taking Active losartan (Cozaar) 100 MG tablet [id number] No Take 100 mg by mouth in the morning. Historical ProviderMD Taking Active magnesium oxide 500 MG tablet [id number] No Take by mouth José Luis Flores MD Taking Active Misc Natural Products (FIBER 7 PO) [id number] No if needed Historical ProviderMD Taking Active MULTIPLE VITAMIN IV [id number] No 1 (one) time each day at the same time. Historical ProviderMD Taking Active naproxen (Naprosyn) 250 MG tablet [id number] No Take 250 mg by mouth Daily as needed for mild pain Hudson Castañeda MD Taking Active polyethylene glycol, PEG, 3350 (MiraLax) 17 GM/SCOOP powder [id number] No Take 17 g by mouth Daily Historical Provider, Taking Active Probiotic Product (CULTURELLE PROBIOTICS PO) [id number] No José Luis Flores MD Taking Active sennosides (Senokot) 8.6 MG tablet [id number] No Take 1 tablet by mouth Daily Hudson Castañeda MD Taking Active zolpidem (Ambien) 10 MG tablet [id number] TAKE 1 TABLET (10 MG) BY MOUTH [...] CATARACT EXTRACTION COLONOSCOPY COLONOSCOPY 01/2022 Dr. Gutierrez [facility] DILATION AND CURETTAGE 1992;11/11/2017 EYE SURGERY 10/2016 [...] placed in this encounter. documented in this encounterCooper County Memorial HospitalNsfcsbgxej85-55-4602 History of Present illness Narrative* Hudson Castañeda [...] of evaluation and management. documented in this encounterCooper County Memorial HospitalGackrhvdub08-91-8478 Telephone encounter Note* Telephone Encounter - Tereso Vásquez MA - 04/12/2024 9:14 AM EDT Oarrs reviewed 03.15.24 [facility] HospitalObuqnnbpyp02-90-4886 Miscellaneous Notes* Telephone Encounter - Tereso Vásquez MA - 04/12/2024 9:14 AM EDT [facility] reviewed 03.15.24 documented in this encounterCooper County Memorial HospitalHdcogbqvit95-85-1584 History of Present illness Narrative* Hudson Castañeda [...] Normal/bedrest/immobile Mental Status: Oriented to own ability Yarbroguh Fall Risk Score: 0 Health Risk Assessment [...] Yes Vision Screening: Yes, 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 Hearing Screening: Not done Cognitive Screening Self Assessment: No concerns rasied by family members, friends, or caretakers Three Word Registration: Banana, [place], Chair Clock Drawing: Normal Clock - 2 Three Word Recall: 1/3 words correct - 1 Total Score (0-5 Points): 3 Pain Assessment Pain Score: 1 Advance Care Planning Do you have a living will?: Yes Do you have a medical power of attorney lawyer?: Yes Who is your medical power of attorney lawyer?: Khadar Wendilouisa Objective : BP 128/78 Pulse [...] through a living will, durable power of attorney lawyer for healthcare, or other advanced directives. We [...] on March 29, 2024 documented in this encounterCooper County Memorial HospitalQhyxdxaoiy98-64-1344 History of Present illness Narrative* Olive Gong, [...] Allergic rhinitis unspecified Anemia Anxiety Anxiety state ([facility]) unspecified Back pain 07/09/2018 Blood infection 2012 [...] CATARACT EXTRACTION COLONOSCOPY COLONOSCOPY 01/2022 Dr. Gutierrez [facility] DILATION AND CURETTAGE 1992;11/11/2017 EYE SURGERY 10/2016 [...] was counseled on the risks of stroke, DC, and sudden with KENNEDY, along with the [...] to clinic: 3 months documented in this encounterCooper County Memorial HospitalReorygxqbk15-37-3529 History of Present illness Narrative* Deb López [...] the celiac artery however the SMA and OJE were both normal. The patient reports occasional [...] PM EDT 27m 34s [facility] History of Present illness Narrative* Pricilla Lobato APRN-CURRICULUM AND INSTRUCTION SPECIALIST - 11/03/2023 1:15 PM EDT Images from [...] Active Problem List Diagnosis Renal artery stenosis ([facility]) BP 140/80 (BP Site: Left Arm, BP Postition: Sitting, BP CUFF SIZE: M (9-13 inches)) Pulse 68 Resp 18 Ht 175.3 cm (5' 9 ) Wt 78.3 kg (172 lb 9.6 oz) BMI 25.49 kg/m Past Medical History: Diagnosis Date Chronic rheumatic arthritis ([facility]) Hypertension Renal artery stenosis ([facility]) Past Surgical History: Procedure Laterality Date FOOT [...] Encounter Diagnoses Name Primary? Celiac artery stenosis ([facility]) Yes Epigastric pain Plan of care: [...] Bentley APRN-CNP 11/03/23 1337 documented in this encounterGreene Memorial HospitalLatinCoin [facility] HospitalFyxgni17-24-6399 Evaluation note* Encounter Date Diagnosis Assessment Notes [...] within the goal. Will check Iron studies. [facility] Other 01-13-2023 NoteHISTORY: Knee pain TECHNIQUE: Duplex [...] signed by Juan Wan on 07/19/2022 1253[employer] [place] [facility] Tpkezpseak01-75-9387 [facility] Evaluation note* Encounter Date Diagnosis Assessment Notes Treatment Notes Treatment Clinical Notes Jan, Screening for colon cancer (ICD-10 - Z12.11) [facility] Other 05-26-2022 Evaluation note* Encounter Date Diagnosis [...] Colonoscopy . Advised her to schedule it [employer] Other 10-28-2021 NoteHNO ID: [id number] Author: Jose G Wells MD Service: Vascular Surgery Author Type: Physician Type: Progress Notes Filed: 05/07/2021 7:30 AM Note Text: NAME: SARI ABBASI [facility] NO: [id number] DATE OF SERVICE: 05/03/2021 DATE OF : [...] She has had an ultrasound done at [facility] that was done in February which [...] Jose G Wells M.D. SPL/089 Audio #: [id number] Date Dictated: 04/19/2021 23:17:18 Date Typed: 05/03/2021 14:30:58 Date Revised: 05/03/2021 16:03:18[facility]10-28-2021 NoteHNO ID: [id number] Author: Jose G Wells MD Service: ? Author Type: Physician Type: Progress Notes Filed: 05/03/2021 11:53 AM Note Text: Here for f/u of unilateral renal artery stenosis with well-controlled hypertension Heart , V[facility] [place] DEPARTMENT OF VASCULAR SURGERY OUTPATIENT VISIT DATE [...] TIME OF SERVICE: 11:20 AM Medical Decision MakingKettering Health Behavioral Medical CenterEvaluation noteNo assessment information availablePromedica Bay Park [facility] Ctr Work Phone: evaluation noteNo InformationNort [employer] Other Evaluation note* Diagnosis Onset Date Resolution Status Chronic hyponatremia acute Hypercholesterolemia acute Renal artery stenosis acute Renovascular hypertension ac deering Rheumatoid arthritis acute Vitamin D deficiency acute [facility] Work Phone: evaluation note* Diagnosis Onset Date Resolution Status Chronic hyponatremia acute Hypercholesterolemia acute Renal artery stenosis acute Renovascular hypertension ac deering Rheumatoid arthritis acute Vitamin D deficiency acute Sciatica acute [facility] Work Phone: Evaluation note* Diagnosis [...] Primary Routine general medical examination at a [facility] care facility Cervical cancer screening Screening for [...] of renal artery documented in this encounter [facility]* Diagnosis Primary insomnia Persistent disorder [...] encounter [facility] HealthcareHistory and physical note Author oJrdan Gutierrez [facility] January 31, 2022 8:44am Note Date/Time January 31, 2022 8:44 am [facility] [address] [place] [address] Gastroenterology H&P Signed Patient: Sari Abbasi MR#: [id number] : 1950 Acct:[id number] Age/Sex: 71 / F Adm Date: 2 Loc: Room: Type: [facility] Attending Dr: Jordan Gutierrez MD Copies [...] <Electronically signed by Jordan Gutierrez MD> 01/31/22843 [facility] Work Phone: History general Narrative [...] Hospitalization History SCIATIC RIGHT SIDE PAIN 05/2018 [employer] Other History general Narrative - Reported* Type [...] Hospitalization History SCIATIC RIGHT SIDE PAIN 05/2018 [employer] Other InstructionsNot on filedocumented in this encounter [employer] SystemInstructionsNot on filedocumented in this encounter [facility] [employer] SystemReason for referral (narrative)No reason for referral information availablePromedica Bay Park [facility] Ctr Work Phone: Reason for visit Narrative* Other Medical (Routine) - Closed Specialty Diagnoses / Procedures Referred By Contac t Referred To Contact Neurology Diagnoses Neck pain Procedures Trigger Point Injection: right semispinalis capitis, left semispinalis capitis, right splenius capitis, left splenius capitis, right upper trapezius, left upper trapezius Olive Gong DO [address] [place] [address] Phone: tel: fax: Olive Gong DO [address] [place] [address] Phone: tel: fax: Referral ID Status Reason Start Date Expiration Date Visits Re quested Visits Authorized [id number] Closed 08/11/2024 02/07/2025 1 1 [facility] Healthcare Summary Purpose Family History No Family [...] Documents on File Type Date Recorded Patient Director Oncology Expl anation Power of Accounting Methods Analyst 08/25/2024 3:53 PM 10-08 Living Will Advance Directives and Living Will 08/25/2024 3:49 PM 2022-10-08 Living Wi ll Documents on File Type Date Recorded Patient Director Oncology Expl anation Power of Accounting Methods Analyst 08/25/2024 3:53 PM 10-08 Living Will [...] Referred To Contact Diagnoses Renal artery stenosis ([facility]) Procedures Vas renal artery duplex complete Deb López MD [address] [place] [address] Referral ID Status Reason Start Date Expiration Date V isits Requested Visits Authorized [id number] Pending Review 12/08/2023 12/07/2024 1 1 Specialty Diagnoses / Procedures Referred By Contac t Referred To Contact Diagnoses Celiac artery stenosis ([facility]) Epigastric pain Procedures Vas mesenteric artery duplex complete Pricilla Lobato, WOOL HAT HYDRAULICKER-CURRICULUM AND INSTRUCTION SPECIALIST [address], [address] [place] [address] Referral ID Status Reason Start Date Expiration Date V isits Requested Visits Authorized [id number] Pending Review 11/03/2023 11/02/2024 1 1 Additional Source Comments INFORMATION SOURCE (unrecogn ized section and content) DATE CREATED AUTHOR 06/21/2018 [facility] DATE CREATED AUTHOR AUTHOR'S ORGANIZ ATION 08/11/2021 [facility] DATE CREATED AUTHOR AUTHOR'S ORGANIZ ATION 07/18/2022 [facility] DATE CREATED AUTHOR AUTHOR'S ORGANIZ ATION 07/19/2022 [facility] dical Specialist DATE CREATED AUTHOR AUTHOR'S ORGANIZ ATION 01/04/2024 [facility] DATE CREATED AUTHOR AUTHOR'S ORGANIZ ATION 06/17/[address] [facility] DATE CREATED AUTHOR AUTHOR'S ORGANIZ ATION 01/22/2025 [facility] dical Specialists EPIC DATE CREATED AUTHOR AUTHOR'S ORGANIZ ATION 02/15/2025 [facility] REASON FOR VISIT (unrecogniz ed [...] January 03, 2025 End: January 03, 2025 Tamrea Randall MD Attending Provider Active St art: [...] Status: Inactive Member Role Status Dates Hudson Castaeñda MD Primary Care Provider Active Kamari Virk [...] A ugust 2023 End: February 05, 2024 Clean Room Operator Relationship Specialty Start Date End Date Hudson Castañeda MD [address] [place] [address] PCP - General 12/19/22 Hudson Castañeda MD [address] [facility] [address] [place], [place] [phone] (Fax) PCP - ACO Reach 09/05/23 Gonsalo Stevens MD [address] [facility] [address] [place] [phone] Referring Physician Nephrology 11/17/23 Team Status: Inactive Member Role Status Dates Hudson Castañeda MD Primary Care Provider Active Start: April 23, 2024 End: April 23, 2024 Tamera Randall MD Attending Provider Active St art: April 23, 2024 End: April 23, 2024 Clean Room Operator Relationship Specialty Start Date End Date Hudson Castañeda MD [address] [place] [address] (Fax) PCP - General 12/19/22 Hudson Castañeda MD [address] [place] [phone] (Fax) PCP - ACO Reach 09/05/23 Gonsalo Stevens MD [address] [facility] [place] [address] Referring Physician Nephrology 11/17/23 Clean Room Operator Relationship Specialty Start Date End Date Hudson Castañeda MD [address] [place] [address] (Fax) PCP - General 12/19/22 Hudson Castañeda MD [address] [place] [address] (Fax) PCP - ACO Reach 09/05/23 Gonsalo Stevens MD [address] [place] [address] Referring Physician Nephrology 11/17/23 Clean Room Operator Relationship Specialty Start Date End Date Hudson Castañeda MD [address] [place] [address] (Fax) PCP - General 12/19/22 Hudson Castañeda MD [address] [place] [address] (Fax) PCP - ACO Reach 09/05/23 Gonsalo Stevens MD [address] [place] [address] Referring Physician Nephrology 11/17/23 Clean Room Operator Relationship Specialty Start Date End Date Hudson Castañeda MD [address] [place] [address] (Fax) PCP - General 12/19/22 Hudson Castañeda MD [address] [place] [address] (Fax) PCP - ACO Reach 09/05/23 Gonsalo Stevens MD [address] [place] [address] Referring Physician Nephrology 11/17/23 Clean Room Operator Relationship Specialty Start Date End Date Hudson Castañeda MD [address] [place] [address] (Fax) PCP - General 12/19/22 Hudson Castañeda MD [address] [place] [address] (Fax) PCP - ACO Reach 09/05/23 Gonsalo Stevens MD [address] [place] [address] Referring Physician Nephrology 11/17/23 Clean Room Operator Relationship Specialty Start Date End Date Hudson Castañeda MD [address] [place] [facility] [place] [address] (Fax) PCP - General 12/19/22 Hudson Castañeda MD [address] [place] [address] (Fax) PCP - ACO Reach 09/05/23 Gonsalo Stevens MD [address] [place] [address] Referring Physician Nephrology 11/17/23 Clean Room Operator Relationship Specialty Start Date End Date Hudson Castañeda MD [address] [place] [facility] [place] [address] (Fax) PCP - General 12/19/22 Hudson Castañeda MD [address] [place] [address] (Fax) PCP - ACO Reach 09/05/23 Gonsalo Stevens MD [address] [place] [address] Referring Physician Nephrology 11/17/23 Clean Room Operator Relationship Specialty Start Date End Date Hudson Castañeda MD [address] [place] [address] (Fax) PCP - General 12/19/22 Hudson Castañeda MD [address] [facility] [place] [address] (Fax) PCP - ACO Reach 09/05/23 Gonsalo Stevens MD [address] [place] [address] Referring Physician Nephrology 11/17/23 Clean Room Operator Relationship Specialty Start Date End Date Hudson Castañeda MD [address] [facility] [place] [address] (Fax) PCP - General 12/19/22 Hudson Castañeda MD [address] [place] [facility] [place] [address] (Fax) PCP - ACO Reach 09/05/23 Gonsalo Stevens MD [address] [place] [address] Referring Physician Nephrology 11/17/23 Clean Room Operator Relationship Specialty Start Date End Date Hudson Castañeda MD [address] [place] [address] (Fax) PCP - General 12/19/22 Hudson Castañeda MD [address] [place] [address] (Fax) PCP - ACO Reach 09/05/23 Gonsalo Stevens MD [address] [place] [address] Referring Physician Nephrology 11/17/23 Clean Room Operator Relationship Specialty Start Date End Date Hudson Castañeda MD [address] [place] [address] (Fax) PCP - General 12/19/22 Hudson Castañeda MD [address] [place], [place] [phone] PCP - ACO Reach 09/05/23 Gonsalo Stevens MD [address] [place] [address] Referring Physician Nephrology 11/17/23 Olive Gong DO [address] [place] [phone] Referring Physician Neurology 08/11/24 Clean Room Operator Relationship Specialty Start Date End Date Hudson Castañeda MD [address] [place] [address] (Fax) PCP - General 12/19/22 Hudson Castañeda MD [address] [place] [address] PCP - ACO Reach 09/05/23 Gonsalo Stevens MD [address] [place] [address] Referring Physician Nephrology 11/17/23 Olive Gong DO [address] [place] [address] Referring Physician Neurology 08/11/24 Clean Room Operator Relationship Specialty Start Date End Date Hudson Castañeda MD [address] [place] [address] (Fax) PCP - General 02/06/18 Clean Room Operator Relationship Specialty Start Date End Date Hudson Castañeda MD [address] [place] [address] (Fax) PCP - General 02/06/18 Clean Room Operator Relationship Specialty Start Date End Date Hudson Castañeda MD [address] [place] [address] (Fax) PCP - General 12/19/22 Hudson Castañeda MD [address] [place] [address] (Fax) PCP - ACO Reach 09/05/23 Gonsalo Stevens MD [address] [phone] Referring Physician Nephrology 11/17/23 Olive Gong DO [address] [place] [phone] Referring Physician Neurology 08/11/24 Clean Room Operator Relationship Specialty Start Date End Date Hudson Castañeda MD [address] [place] [address] (Fax) PCP - General 12/19/22 Hudson Castañeda MD [address] [place] [address] PCP - ACO Reach 09/05/23 Gonsalo Stevens MD [address] [facility] [address] [place] [address] Referring Physician Nephrology 11/17/23 Olive Gong DO [address] [place] [phone] Referring Physician Neurology 08/11/24 Clean Room Operator Relationship Specialty Start Date End Date Hudson Castañeda MD [address] [facility] [address] [place] [address] PCP - General 12/19/22 Hudson Castañeda MD [address] [facility] [address] [place] [address] PCP - ACO Reach 09/05/23 Gonsalo Stevens MD [address] [place] [address] [place] [address] Referring Physician Nephrology 11/17/23 Olive Gong DO [address] [place] [phone] Referring Physician Neurology 08/11/24 Maribeth Powers NP [address] [place], [place] Nurse Practitioner Neurology 10/21/24 Clean Room Operator Relationship Specialty Start Date End Date Hudson Castañeda MD [address] [place] [address] PCP - General 12/19/22 Hudson Castañeda MD [address] [address] [place] [address] PCP - ACO Reach 09/05/23 Gonsalo Stevens MD [address] [place] [address] Referring Physician Nephrology 11/17/23 Olive Gong DO [address] [place] [phone] Referring Physician Neurology 08/11/24 Maribeth Powers NP [address] [place] [address] Nurse Practitioner Neurology 10/21/24 Clean Room Operator Relationship Specialty Start Date End Date Hudson Castañeda MD [address] [place] [address] PCP - General 12/19/22 Hudson Castañeda MD [address] [place] [address] PCP - ACO Reach 09/05/23 Gonsalo Stevens MD [address] [place] [address] Referring Physician Nephrology 11/17/23 Olive Gong DO [address] [place] [phone] Referring Physician Neurology 08/11/24 Maribeth Powers, YOEL [address] [place] [address] Nurse Practitioner Neurology 10/21/24 Team Status: Inactive Member Role Status Dates Hudson Castañeda MD Primary Care Provider Active Start: November 07, 2024 End: November 07, 2024 Kyra Gomes APRN Attending Provider Active Start: November 07, 2024 End: November 07, 2024 Team Status: Inactive Member Role Status Dates Kyra Gomes APRN Attending Provider Active Start: November 07, 2024 End: November 07, 2024 Clean Room Operator Relationship Specialty Start Date End Date Hudson Castañeda MD [address] [place] [address] (Fax) PCP - General 12/19/22 Hudson Castañeda MD [address] [place] [address] (Fax) PCP - ACO Reach 09/05/23 Gonsalo Stevens MD [address] [place] [address] Referring Physician Nephrology 11/17/23 Olive Gong DO [address] [place] [address] Referring Physician Neurology 08/11/24 Maribeth Powers NP [address] [place], [place] Nurse Practitioner Neurology 10/21/24 Team Status: Inactive Member Role Status Dates Kyra Gomes APRN Attending Provider Active Start: November 07, 2024 End: November 07, 2024 PHYSICIAN NO FAMILY Primary Care Provider Active Start: November 07, 2024 End: November 07, 2024 Clean Room Operator Relationship Specialty Start Date End Date Hudson Castañeda MD [address] [place] [address] (Fax) PCP - General 12/19/22 Hudson Castañeda MD [address] [place] [address] (Fax) PCP - ACO Reach 09/05/23 Gonsalo Stevens MD [address] [place] [address] Referring Physician Nephrology 11/17/23 Olive Gong DO [address] [place] [phone] Referring Physician Neurology 08/11/24 Maribeth Powers NP [address] 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 [address] Referring Physician Neurology 08/11/24 Maribeth Powers NP [address] [place] [address] Nurse Practitioner Neurology 10/21/24 Team Status: Active Member Role Status Dates NON STAFF Primary Care Provider Active Clean Room Operator Relationship Specialty Start Date End Date Hudson Castañeda MD [address] [place] [address] (Fax) PCP - General 12/19/22 Hudson Castañeda MD [address] [place] [address] (Fax) PCP - ACO Reach 09/05/23 Gonsalo Stevens MD [address] [place] [address] Referring Physician Nephrology 11/17/23 Olive Gong DO [address] [place] [phone] Referring Physician Neurology 08/11/24 Maribeth Powers NP [address] [place] [id number] Nurse Practitioner Neurology 10/21/24 Cassi Wright, RN [address] [place] [address] [place] [address] Registered Nurse Family Medicine 01/11/25 Clean Room Operator Relationship Specialty Start Date End Date Hudson Castañeda MD [address] [place] [address] (Fax) PCP - General 12/19/22 Hudson Castañeda MD [address] [place] [address] (Fax) PCP - ACO Reach 09/05/23 Gonsalo Stevens MD [address] [facility] [address] [place] [address] Referring Physician Nephrology 11/17/23 Olive Gong DO [address] [place] [address] Referring Physician Neurology 08/11/24 Maribeth Powers NP [address] [place] [address] Nurse Practitioner Neurology 10/21/24 Cassi Wright, RN [address] [facility] [address] [place] [address] Registered Nurse Family Medicine 01/11/25 [...] BE BASED ON THE PRIMARY CLINICAL RECORDS. [facility]. provides no warranty or guarantee of the accuracy or completeness of information in this document.
[2025-04-11 11:17] LABS: Alanine Aminotransferase 30 U/L (14-59); Albumin Globulin Ratio 0.9; Albumin Level 3.8 g/dL (3.4-5.0); Alkaline Phosphatase 94 U/L (46-116); Anion Gap 11.7; Aspartate Amino Transferase 22 U/L (15-37); Blood Urea Nitrogen 15.0 mg/dL (7.0-18.0); Calcium 8.9 mg/dL (8.5-10.1); Carbon Dioxide 27.5 mmol/L (21.0-32.0); Chloride 99 mmol/L (98-107); Cholesterol 270 mg/dL (<=200); Estimated GFR (African America >60 (>=60 mL/min/1.73m^2); Estimated GFR (Non-African Ame >60 (>=60 mL/min/1.73m^2); Globulin 4.0 g/dL; Glucose 102 mg/dL (74-106); HDL Cholesterol 55 mg/dL (40-60); Potassium 4.2 mmol/L (3.5-5.1); Sodium 134 mmol/L (136-145); Total Protein 7.8 g/dL (6.4-8.2); Triglycerides 160 mg/dL (<=150); VLDL CHOLESTEROL 32.0 mg/dL
== END 2025-04-11 10:26 | disposition home or self-care (01) ==
LOC: LAB 10:26
PROVIDERS: PCP Family Medicine; Visit Provider Family Medicine
DX: E78.2 Mixed hyperlipidemia (principal); I10 Essential (primary) hypertension; Z79.899 Other long term (current) drug therapy
CPT/HCPCS: 36415; 80053; 80061